=== PATIENT | female | born 1995 | race Caucasian/White ===

== ENCOUNTER 2018-02-15 21:58 | Emergency (ER) | payer SELFPAY ==
[2018-02-15 21:59] VITALS: BP 151/78; PULSE 77; RESP 14; TEMP 36.4; O2SAT 99; BMI 37.1
--- NOTE | 2018-02-15 22:22 | ED.VISSUMM ---
- ER Visit Summary Date of Service: 02/15/18 Chief Complaint: Dental pain History of Present Illness: The patient is a 22 F presents to the emergency department with pain in the right upper jaw. The patient had a filling about 6 months ago and since then she has had persistent pain. She is actually scheduled to have a root canal done tomorrow. States the past 3 nights, the pain is worsened. She has been taking ibuprofen and Tylenol with little relief. She denies any trouble speaking or swallowing. She denies any trauma. She denies any fevers or chills. Physical Examination: Exam is relatively unremarkable. She does have some mild tenderness to palpation over tooth #3. There is no focal abscess. No Aaron angina. Some of the space is soft. No trismus or stridor. Test Results: [] Emergency Department Course and Treatment: The patient does have some mild tenderness. She may have periapical abscess. She is scheduled for root canal tomorrow. She is given 1 dose of analgesics here and will be started on antibiotics. The patient will be given 24 hours of analgesic coverage until she can of root canal done. There is no evidence of Aaron angina. She is discharged home. Treatment Plan: [] Disposition: Discharge Impression: 1. Dental pain tooth 3 This note was generated with [employer] dictation software. It may contain incorrect words, spelling, and punctuation that were not noted in review of the chart prior to signing ED Disposition - Plan for ED Patient: Chief Complaint: Dental Instructions: ED Tooth Pain Prescriptions: Oxycodone HCl/Acetaminophen [Percocet 5/325] 1 tab PO Q6H PRN PRN 2 Days #5 tab PRN Reason: Pain Amoxicillin 500 mg PO TID #30 tab Referrals: Cora Alaniz DO [Primary Care Provider] -
[2018-02-15] MEDS: AMOXICILLIN 500 MG CAPSULE PO (23:14)
[2018-02-15] MEDS: oxyCODONE 5 MG Tablet PO (23:14)
[2018-02-15 23:16] VITALS: RESP 16
== END 2018-02-15 23:16 | disposition home or self-care (01) ==
LOC: ED 22:50
PROVIDERS: Emergency Provider Emergency Medicine
DX: K08.89 Other specified disorders of teeth and supporting structures (principal)
CPT/HCPCS: 99283

== ENCOUNTER 2018-03-05 09:23 | Emergency (ER) | payer SELFPAY ==
[2018-03-05 09:23] VITALS: BP 137/78; PULSE 88; RESP 15; TEMP 35.9; O2SAT 98; BMI 37.8
[2018-03-05] MEDS: Ondansetron ODT 4 MG Tablet PO (09:50)
[2018-03-05 10:03] LABS: Color, Urine Yellow (Yellow); Glucose, Dipstick Normal (Normal); Ketone-Dipstick Negative (Negative); Leukocyte Esterase-Dipstick 500 /ul (Negative); Nitrite-Dipstick Negative (Negative); Occult Blood-Urine 25 /ul (Negative); Protein-Dipstick 15 mg/dl (Negative); Urine Bilirubin Dipstick Negative (Negative); Urine Clarity Cloudy (Clear); Urine Urobilinogen Normal (Normal)
[2018-03-05 10:05] LABS: White Blood Cells 25-50 SEEN /hpf (0-5)
[2018-03-05 10:06] LABS: Bacteria 1+ /hpf (None Seen); Red Blood Cells-Urine 0-5 SEEN /hpf (0-5); Squamous Epithelial Cells - UA 5-10 SEEN /hpf (5-10)
[2018-03-05 10:07] LABS: Mucous, Urine RARE /hpf (<or=2+)
[2018-03-05 10:19] LABS: Pregnancy, Serum, hCG Quali. NEGATIVE Negative (0-9 Nonpreg)
--- NOTE | 2018-03-05 10:59 | ED.VISSUMM ---
- ER Visit Summary Date of Service: 03/05/18 Chief Complaint: Vague generalized centrally located abdominal pain and nausea and vomiting History of Present Illness: The patient is a 23 F who states last menses was approximately 3 weeks ago presents with generalized centrally located abdominal discomfort with nausea vomiting for 1-2 months. Upon further questioning the last time she vomited was February 11. She does report nausea for the past several days. She denies black, maroon or bloody stool. She states her emesis was bile . 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 He denies fever, chills night sweats. She denies any HEENT symptoms. She denies discomfort in her chest, palpitations, shortness of breath, dyspnea on exertion, or cough. She is status post cholecystectomy. She states since her gallbladder was removed she has had chronic diarrhea. She denies any blood or mucus in her stool. She does report mild frequency with no dysuria or urgency. She denies any vaginal bleeding or discharge. I was informed by her nurse that she has leg swelling and is concerned this is related to her heart disease. She has history of valvular heart disease. Of note BMI is 37.9. Physical Examination: Vital signs are marked for an elevated blood pressure 137/78. She is not hypoxic. Head is atraumatic normocephalic. Pupils are equal round reactive. Extraocular muscles are intact. TMs are pearly white with landmarks noted. Nares patent with no drainage. Posterior pharynx without erythema or exudate. Uvula is midline. There is no dysphonia or dysphasia. Trachea is midline. There is no stridor with auscultation of the neck. Heart is regular without murmur, gallop or rub. S1 and S2 are normal. Lungs are clear to auscultation with good movement of air bilaterally. Abdomen is remarkable for mild tenderness without guarding or rebound tenderness. Bowel sounds are present normal. There is no CVA tenderness noted. Equivocal suprapubic discomfort to deep palpation. Neuro exam is nonfocal. Test Results: Serum test was negative. Urinalysis is consistent with a UTI with leukoesterase and blood on macro and 25-50 RBCs with 05 RBCs 5 epithelial cells and 1+ bacteria. Emergency Department Course and Treatment: Because she complains of vague abdominal pain with nausea a serum test was obtained. Because of her urinary symptoms a UA urinalysis was obtained. Treatment Plan: Macrobid 100 mg twice daily ?5 days. Cultures not indicated since this is not a complex UTI. Disposition: Discharged home to follow-up with PCP. Apparently she does not have a PCP. Therefore, she was referred to Dr. López. Impression: 1. Generalized abdominal pain of unknown etiology 2. Acute cystitis 3. Elevated blood pressure in nonhypertensive patient This note was generated with [employer] dictation software. It may contain incorrect words, spelling, and punctuation that were not noted in review of the chart prior to signing ED Disposition - Plan for ED Patient: Disposition: Home or Assisted Living Chief Complaint: Nausea/Vomiting Instructions: ED Abdominal Pain Unkn Cause, ED Hypertension Poss, ED UTI Cystitis Female Prescriptions: Nitrofurantoin Monohyd/M-Cryst [Macrobid 100 mg Capsule] 100 mg PO BID #10 cap Referrals: Care Physician,No Primary [Primary Care Provider] - Panda Stock MD [STAFF PHYSICIAN] - 1 Week
[2018-03-05] MEDS: Nitrofurantoin Macrocrystals 100 MG Capsule PO (11:28)
[2018-03-05 11:29] VITALS: BP 125/70; BP 125/78; PULSE 80; RESP 14; O2SAT 99
== END 2018-03-05 11:30 | disposition home or self-care (01) ==
PROVIDERS: Emergency Provider Emergency Medicine
DX: R10.84 Generalized abdominal pain (principal); N30.00 Acute cystitis without hematuria; R03.0 Elevated blood-pressure reading, without diagnosis of hypertension; K52.9 Noninfective gastroenteritis and colitis, unspecified; M79.89 Other specified soft tissue disorders; Z90.49 Acquired absence of other specified parts of digestive tract
CPT/HCPCS: 81001; 84703; 99283; A4216

== ENCOUNTER → 2018-04-23 15:37 | Outpatient (CLI) | payer SELFPAY ==
[2018-04-30 11:02] LABS: HPV Reflexed? NOT INDICATED
== END ==
PROVIDERS: Visit Provider Obstetrics & Gynecology
DX: Z12.4 Encounter for screening for malignant neoplasm of cervix (principal)
CPT/HCPCS: 88175; G0145

== ENCOUNTER → 2018-05-18 15:18 | Outpatient (CLI) | payer SELFPAY ==
[2018-05-18 19:22] LABS: Chlamydia Trachomatis by PCR Negative (Negative); Neisserai gonorrhoeae by PCR Negative (Negative); Probe Check PASS; Sample Adequacy Control PASS; Specimen Processing Control PASS
== END ==
PROVIDERS: Visit Provider Obstetrics & Gynecology
DX: R30.0 Dysuria (principal); Z11.3 Encounter for screening for infections with a predominantly sexual mode of transmission
CPT/HCPCS: 87086; 87088; 87491; 87591

== ENCOUNTER → 2018-05-21 15:08 | Outpatient (CLI) | payer SELFPAY ==
--- NOTE | 2018-05-21 15:20 | US_ITS ---
STUDY: ULTRASOUND BREAST - RIGHT REASON FOR EXAM: Female, 23 years old. Lump TECHNIQUE: Axial and longitudinal images of the RIGHT breast were performed with a high resolution ultrasound transducer. COMPARISON: None. FINDINGS: RIGHT Breast: There is a subcutaneous hypoechoic 0.4 x 0.3 x 0.2 cm nodule at 1:00, adjacent to the nipple. This is likely a skin lesion or small lymph node. There is no suspicious shadowing solid lesion, architectural distortion or shadowing calcifications. US/Breast Limited Unilateral IMPRESSION: Likely subcutaneous skin nodule, no suspicious sonographic findings. ASSESSMENT CATEGORY: BIRADS Category 2: Benign. A letter regarding these results will be sent to the patient by the facility within 30 days. Electronically Signed: Rudy Raygoza MD at 21:32 EDT , Service support ,
== END ==
PROVIDERS: Visit Provider Obstetrics & Gynecology
DX: N63.10 Unspecified lump in the right breast, unspecified quadrant (principal)
CPT/HCPCS: 76642

== ENCOUNTER 2018-07-21 14:16 | Emergency (ER) | payer SELFPAY ==
[2018-07-21 14:18] VITALS: BP 158/73; PULSE 78; RESP 24; TEMP 37; O2SAT 100; BMI 32.8
--- NOTE | 2018-07-21 14:24 | NURSING ---
NO OLD EKGS
--- NOTE | 2018-07-21 14:45 | RAD_ITS ---
STUDY: X-RAY CHEST REASON FOR EXAM: Female, 23 years old. Chest pain. Left arm tingling. TECHNIQUE: PA and lateral views of the chest. COMPARISON: None. FINDINGS: EKG electrodes are seen. The lungs are clear and expanded. There is no demonstrated pleural abnormality. Normal size heart. Normal mediastinum and oswald. Normal visualized pulmonary arteries. Normal visualized aortic arch and descending thoracic aorta. Normal visualized thoracic spine. Normal visualized ribs, clavicles, and shoulders. There is no demonstrated abnormality of the visualized soft tissue structures of the upper abdomen. RAD/Chest PA and Lateral IMPRESSION: Normal x-ray examination of the chest. Electronically Signed: Alexandre Lozano MD at 15:40 EDT Tel [phone], Service support ,
--- NOTE | 2018-07-21 14:45 | EKG12_ITS ---
Test Reason : CP Blood Pressure : / mmHG Vent. Rate : 082 BPM Atrial Rate : 082 BPM P-R Int : 132 ms QRS Dur : 076 ms QT Int : 376 ms P-R-T Axes : 004 065 035 degrees QTc Int : 439 ms Normal sinus rhythm with sinus arrhythmia Normal ECG Confirmed by DONAVAN PERSAUD, JESSIE ([id number]), editor magazine JENNY ALCOCER ([id number]) on 07/23/2018 1:54:17 PM Referred By: BOUBACAR/DAVE Confirmed By:JESISE GO MD
[2018-07-21 14:52] LABS: Absolute Lymphocyte Count 2.01 X10^3/ul (0.83-4.51); Absolute Neutrophil Count 5.6 X10^3/uL (2.0-7.7); Basophil# 0.01 X10^3/uL; Basophil% 0.1 % (0-1); Eosinophil# 0.06 X10^3/uL; Eosinophils% 0.7 % (0-5); Hemoglobin 12.9 g/dl (12.0-15.0); Lymphocyte # 2.01 X10^3/ul (4.0); Lymphocyte % 24.5 % (19-41); Mean Corp Hgb Conc 33.1 g/gl (32-36); Mean Corpuscular Hgb 28.5 pg (27.0-32.0); Mean Corpuscular Volume 86.3 fL (81-99); Mean Platelet Vol. 11.1 fl (6.2-12.0); Monocyte# 0.55 X10^3/uL; Monocyte% 6.7 % (0-10); Neutrophil # 5.57 X10^3/uL (2.7-7.7); Neutrophil % 67.9 % (47-70); POSITIVE COUNT NO; POSITIVE DIFFERENTIAL NO; POSITIVE MORPHOLOGY NO; Platelet Count 297 K/mm3 (150-450); RBC Distribution Width CV 13.6 % (11.6-14.6); RBC Distribution Width SD 42.7 fl (35.1-43.9); Red Blood Count 4.52 M/mm3 (4.2-5.4); White Blood Count 8.2 K/mm3 (4.4-11.0)
[2018-07-21 15:00] LABS: D-Dimer Quantitative (DVT/PE) 0.61 FEU/ug/m (0.27-0.49)
--- NOTE | 2018-07-21 15:01 | ED.RN ---
DR. HAMLIN NOTIFIED FACE TO FACE FOR CRITICAL LAB RESULT OF D-DIMER ON PT OF 0.61. NO ORDERS GIVEN AT THIS TIME.
[2018-07-21] MEDS: Aspirin 81 MG TAB.CHEW 324 MG PO (15:03)
--- NOTE | 2018-07-21 15:05 | CT_ITS ---
STUDY: CTA CHEST REASON FOR EXAM: Female, 23 years old. Chest pain and shortness of breath. Elevated d-dimer. RADIATION DOSAGE (If Supplied By Facility): CTDIvol = ( 16.19 ) mGy, DLP = ( 639.86 ) mGycm TECHNIQUE: The examination was performed with the intravenous administration of 100ML ml of Isovue 300 contrast material. Post-processing of the angiographic images was performed, with multiplanar reformation and 3D reconstruction. Individualized dose optimization techniques were used for this CT. COMPARISON: None. FINDINGS: Normal enhancement of the main pulmonary artery and right and left pulmonary arteries. Normal enhancement of the bilateral peripheral pulmonary arteries. There is no demonstrated pulmonary embolism. Normal thoracic aorta and visualized great vessels. There is no demonstrated aortic dissection. Normal heart and pericardium. Normal mediastinum. Normal hilar regions. Normal visualized trachea and bronchi. The lungs are well expanded. Normal pulmonary parenchyma. Normal pleura. Normal chest wall structures. Normal osseous structures. The patient is status post cholecystectomy. Small hiatal hernia. CT/CTA Chest W/WO Contrast IMPRESSION: Normal CTA chest examination, without a demonstrated pulmonary embolism or arterial dissection. Electronically Signed: Alexandre Lozano MD at 15:43 EDT Tel [phone], Service support ,
[2018-07-21 15:09] LABS: Anion Gap 6 (5-15); BUN 10 mg/dL (7-18); Chloride 102 mmol/L (98-107); Creatinine, Serum 0.84 mg/dL (0.55-1.02); EST Glomerular Filtration Rate 90 mL/min (>60); Est Glom Filt Rate - Afr Amer 109 mL/min (>60); Glucose 99 mg/dL (74-106); Potassium 3.7 mmol/L (3.5-5.1); Sodium Level 137 mmol/L (136-145)
[2018-07-21 15:16] VITALS: BP 115/67; PULSE 67; RESP 16; O2SAT 97
[2018-07-21 16:00] VITALS: BP 105/55; PULSE 94; RESP 20; O2SAT 96
--- NOTE | 2018-07-21 16:13 | ED.VISSUMM ---
- ER Visit Summary Date of Service: 07/21/18 Chief Complaint: Chest pain and left arm pain History of Present Illness: The patient is a 23 F presenting for evaluation secondary to chest pain left arm pain. Patient reports that over the course of multiple months she has been having intermittent issues where she will get pain on her left side. She states that associated with pain in her left arm and her left leg. These do not seem to have any sort of exacerbating relieving factors and will come or go completely on their own. Patient apparently developed chest pain however associated with this about an hour and a half ago. Patient states that associated with feelings of nausea shortness of breath and paresthesia in her left arm. Patient reports that she frequently has been getting issues with getting hiccups about twice a day. She denies any fevers but does endorse that she is having some chills. She does endorse some nausea associated with this as well. Patient has a history of anxiety and pulmonary valve stenosis. She is not on any other medications other than control. She denies any hemoptysis or history of DVT or PE although they do have a familial history of PE. Physical Examination: Vital signs are within normal limits, patient is afebrile. General: Patient is well-nourished well-developed and in no acute distress. Head: Normocephalic, atraumatic Eyes: Pupils equal round and reactive bilaterally, extra occular motion intact bialterally ENT: Moist mucous membranes Neck: Supple, no lymphadenopathy, no JVD, no meningismus CVS: Heart regular rate and rhythm, 3 out of 6 systolic murmur, rubs or gallops, radial pulses 2+ bilaterally Resp: Respirations nondistressed, lung sounds clear bilaterally Abdomen: Soft, nontender, nondistended, no palpable masses, normal bowel sounds Back: Nontender Extremities: Nontender, atraumatic, active full range of motion, no peripheral edema Skin: warm, no rashes, no petechia Neuro: Alert and oriented x 4, CN 2-12 intact, no lateralizing neurological defecits Psyc: Normal affect Test Results: EKG demonstrates a sinus rhythm of [address] segments normal T waves normal intervals and no evidence of WPW or Brugada morphology. CBC chemistry and troponin are negative. D-dimer was found to be positive. CTA angiogram of the chest was found to be negative. Emergency Department Course and Treatment: Patient presented for evaluation secondary to chest pain. She did endorse somewhat of a pleuritic nature to this and is also on control, so she cannot be ruled out without performing a d-dimer. This was found to be positive. CT angiogram was negative. Patient's heart score is low risk. I had a extensive discussion with the patient about her waxing and waning left arm and left leg pain that is been going on for months and I do not believe that this is neurologic, infectious, vascular, or anything that would require inpatient workup or admission. I encouraged her that she needs to follow-up on an outpatient basis with primary care physician to continue workup of this. All questions were answered and the patient was discharged. Disposition: Discharge Impression: 1. Noncardiac chest pain This note was generated with [employer] dictation software. It may contain incorrect words, spelling, and punctuation that were not noted in review of the chart prior to signing ED Disposition - Plan for ED Patient: Chief Complaint: Chest Pain Diagnosis: Chest pain Instructions: ED Chest Pain NonCardiac Referrals: Aditya Melchor III, MD [STAFF PHYSICIAN] -
--- NOTE | 2018-07-21 16:18 | ED.DCSUM_ITS ---
- ER Visit Summary Date of Service: 07/21/18 Chief Complaint: Chest pain and left arm pain History of Present Illness: The patient is a 23 F presenting for evaluation secondary to chest pain left arm pain. Patient reports that over the course of multiple months she has been having intermittent issues where she will get pain on her left side. She states that associated with pain in her left arm and her left leg. These do not seem to have any sort of exacerbating relieving factors and will come or go completely on their own. Patient apparently developed chest pain however associated with this about an hour and a half ago. Patient states that associated with feelings of nausea shortness of breath and paresthesia in her left arm. Patient reports that she frequently has been getting issues with getting hiccups about twice a day. She denies any fevers but does endorse that she is having some chills. She does endorse some nausea associated with this as well. Patient has a history of anxiety and pulmonary valve stenosis. She is not on any other medications other than control. She denies any hemoptysis or history of DVT or PE although they do have a familial history of PE. Physical Examination: Vital signs are within normal limits, patient is afebrile. General: Patient is well-nourished well-developed and in no acute distress. Head: Normocephalic, atraumatic Eyes: Pupils equal round and reactive bilaterally, extra occular motion intact bialterally ENT: Moist mucous membranes Neck: Supple, no lymphadenopathy, no JVD, no meningismus CVS: Heart regular rate and rhythm, 3 out of 6 systolic murmur, rubs or gallops, radial pulses 2+ bilaterally Resp: Respirations nondistressed, lung sounds clear bilaterally Abdomen: Soft, nontender, nondistended, no palpable masses, normal bowel sounds Back: Nontender Extremities: Nontender, atraumatic, active full range of motion, no peripheral edema Skin: warm, no rashes, no petechia Neuro: Alert and oriented x 4, CN 2-12 intact, no lateralizing neurological defecits Psyc: Normal affect Test Results: EKG demonstrates a sinus rhythm of [address] segments normal T waves normal intervals and no evidence of WPW or Brugada morphology. CBC chemistry and troponin are negative. D-dimer was found to be positive. CTA angiogram of the chest was found to be negative. Emergency Department Course and Treatment: Patient presented for evaluation secondary to chest pain. She did endorse somewhat of a pleuritic nature to this and is also on control, so she cannot be ruled out without performing a d- dimer. This was found to be positive. CT angiogram was negative. Patient's heart score is low risk. I had a extensive discussion with the patient about her waxing and waning left arm and left leg pain that is been going on for thu and I do not believe that this is neurologic, infectious, vascular, or anything that would require inpatient workup or admission. I encouraged her that she needs to follow-up on an outpatient basis with primary care physician to continue workup of this. All questions were answered and the patient was discharged. Disposition: Discharge Impression: 1. Noncardiac chest pain This note was generated with [employer] dictation software. It may contain incorrect words, spelling, and punctuation that were not noted in review of the chart prior to signing ED Disposition - Plan for ED Patient: Chief Complaint: Chest Pain Diagnosis: Chest pain Instructions: ED Chest Pain NonCardiac Referrals: Aditya Melchor III, MD [STAFF PHYSICIAN] -
[2018-07-21 16:19] VITALS: BP 105/55; PULSE 84; RESP 20; O2SAT 97
== END 2018-07-21 16:32 | disposition home or self-care (01) ==
LOC: ED 15:10
PROVIDERS: Emergency Provider Emergency Medicine
DX: R07.89 Other chest pain (principal); M79.602 Pain in left arm; M79.605 Pain in left leg; R06.00 Dyspnea, unspecified; R11.0 Nausea; I37.8 Other nonrheumatic pulmonary valve disorders; F41.9 Anxiety disorder, unspecified; Z79.3 Long term (current) use of hormonal contraceptives
CPT/HCPCS: 71046; 71275; 80048; 84484; 85025; 85379; 93005; 99285; Q9967; A4216

== ENCOUNTER 2018-08-12 23:42 | Emergency (ER) | payer SELFPAY ==
[2018-08-12 23:43] VITALS: BP 129/80; PULSE 82; RESP 14; TEMP 36.1; O2SAT 96; BMI 34.7
--- NOTE | 2018-08-12 23:53 | EKG12_ITS ---
Test Reason : CP Blood Pressure : / mmHG Vent. Rate : 072 BPM Atrial Rate : 072 BPM P-R Int : 142 ms QRS Dur : 076 ms QT Int : 368 ms P-R-T Axes : 018 052 026 degrees QTc Int : 402 ms Normal sinus rhythm with sinus arrhythmia Normal ECG Confirmed by DONAVAN PERSAUD, JESSIE ([id number]), senior editor ISMAEL HUDSON ([id number]) on 08/16/2018 12:47:41 PM Referred By: LISA Confirmed By:JESSIE GO MD
--- NOTE | 2018-08-13 00:16 | ED.VISSUMM ---
- ER Visit Summary Date of Service: 08/13/18 Chief Complaint: Left leg pain, chest pain History of Present Illness: The patient is a 23 F who has had the above symptoms for a couple of weeks. She has had left leg pain intermittently. She states the pain is sharp in the middle part of her chest. She was seen here 2 weeks ago and had a full workup including a slightly positive d-dimer at 0.61. CTA of the chest was negative. She states that she told the physician that about her leg pain but they did not do an ultrasound at that time. She has no history of DVTs in the past. She denies any injuries to the left leg. The pain is worse with walking. He has no DVT risk factors. Physical Examination: Vital signs reviewed. HEENT exam unremarkable. Heart is regular rate and rhythm without murmurs. Lungs are clear to auscultation. Abdomen is soft and nontender. Extremities reveal no edema. The left leg is tender in the left calf. There is no swelling of the entire leg. No palpable cords. No erythema. She is full range of motion with pain in the calf. She has 2+ DP pulse of the left foot. Skin exam normal. Neurologic exam normal. Test Results: EKG was sinus rhythm with rate of 72. No ST changes. Emergency Department Course and Treatment: The patient's EKG was unremarkable. Patient declined Lovenox. She only requested aspirin. I will write her a prescription to have an outpatient ultrasound done tomorrow. I reviewed her workup from a couple of weeks ago and it is fairly normal except for the slightly elevated d-dimer. I do not feel labs are necessary at this time. Treatment Plan: [] Disposition: Discharge Impression: Left leg pain, chest pain This note was generated with [employer] dictation software. It may contain incorrect words, spelling, and punctuation that were not noted in review of the chart prior to signing ED Disposition - Plan for ED Patient: Chief Complaint: Lower Extremity Injury Referrals: Care Physician,No Primary [Primary Care Provider] -
--- NOTE | 2018-08-13 00:18 | ED.DEP ---
ED Disposition - Plan for ED Patient: Disposition: Home or Assisted Living Chief Complaint: Lower Extremity Injury Instructions: ED Chest Pain NonCardiac Referrals: Rosenda Ewing MD [STAFF PHYSICIAN] -
[2018-08-13] MEDS: Aspirin 325 MG Tablet PO (00:24)
[2018-08-13 00:30] VITALS: BP 141/68; PULSE 69; RESP 18; O2SAT 100
== END 2018-08-13 00:30 | disposition home or self-care (01) ==
PROVIDERS: Emergency Provider Emergency Medicine
DX: M79.605 Pain in left leg (principal); R74.8 Abnormal levels of other serum enzymes; R07.9 Chest pain, unspecified
CPT/HCPCS: 93005; 99283

== ENCOUNTER → 2018-08-13 15:13 | Outpatient (CLI) | payer SELFPAY ==
--- NOTE | 2018-08-13 15:15 | VDLE_ITS ---
Reason For Study: LEG PAIN RIGHT LEFT CFV is compressible, spontaneous, phasic, GSV is normal. competent and demonstrates normal CFV is compressible, spontaneous, phasic, augmentation. competent, and demonstrates normal Procedure augmentation. Exam performed in department. FV is compressible, spontaneous, phasic, competent and demonstrates normal augmentation. POP V is compressible, spontaneous, phasic, competent and demonstrates normal augmentation. T/P Trunk is compressible. PTV is compressible. LT PerV is compressible. Interpretation Summary Deep veins of the left lower extremity are patent and compressible segmentally. There is no evidence of left lower extremity deep vein thrombosis. Valvular competence appears intact within the proximal deep venous system on the left . The left greater saphenous vein appears patent and compressible segmentally. Ordering Physician: Noman Whalen Referring Physician: Francisco Stock MD Performed By: Leighann López RVT
== END ==
LOC: CVS 15:14
PROVIDERS: Family Provider Family Medicine; PCP Family Medicine; Referring Provider Emergency Medicine; Visit Provider Emergency Medicine
DX: M79.605 Pain in left leg (principal)
CPT/HCPCS: 93971

== ENCOUNTER → 2018-08-16 14:31 | Outpatient (CLI) | payer SELFPAY ==
[2018-08-16 16:11] LABS: hCG Titer Quant., Serum < 1 mIU/mL (<9 non-preg)
== END ==
PROVIDERS: Visit Provider Obstetrics & Gynecology
DX: N92.6 Irregular menstruation, unspecified (principal)
CPT/HCPCS: 36415; 84702

== ENCOUNTER → 2018-08-19 11:22 | Outpatient (CLI) | payer SELFPAY ==
[2018-08-19 12:12] LABS: Hematocrit 39.6 % (37-47); Hemoglobin 13.1 g/dl (12.0-15.0); Mean Corp Hgb Conc 33.1 g/gl (32-36); Mean Corpuscular Hgb 28.6 pg (27.0-32.0); Mean Corpuscular Volume 86.5 fL (81-99); Mean Platelet Vol. 10.7 fl (6.2-12.0); Platelet Count 261 K/mm3 (150-450); RBC Distribution Width CV 13.6 % (11.6-14.6); RBC Distribution Width SD 43.2 fl (35.1-43.9); Red Blood Count 4.58 M/mm3 (4.2-5.4); Scan Indicated on CBC? Y/N NO; White Blood Count 5.6 K/mm3 (4.4-11.0)
[2018-08-19 12:29] LABS: D-Dimer Quantitative (DVT/PE) 0.41 FEU/ug/m (0.27-0.49)
== END ==
PROVIDERS: Visit Provider Obstetrics & Gynecology
DX: N92.5 Other specified irregular menstruation (principal); R74.8 Abnormal levels of other serum enzymes
CPT/HCPCS: 36415; 85027; 85379

== ENCOUNTER → 2018-10-05 11:20 | Outpatient (CLI) | payer OTHER, SELFPAY ==
[2018-10-05 08:17] VITALS: BMI 34.9
[2018-10-05 12:29] LABS: Hematocrit 40.6 % (37-47); Hemoglobin 13.5 g/dl (12.0-15.0); Mean Corp Hgb Conc 33.3 g/gl (32-36); Mean Corpuscular Volume 87.1 fL (81-99); Mean Platelet Vol. 11.5 fl (6.2-12.0); Platelet Count 294 K/mm3 (150-450); RBC Distribution Width CV 13.6 % (11.6-14.6); RBC Distribution Width SD 42.8 fl (35.1-43.9); Red Blood Count 4.66 M/mm3 (4.2-5.4); White Blood Count 5.6 K/mm3 (4.4-11.0)
[2018-10-05 12:36] LABS: Scan Indicated on CBC? Y/N NO
[2018-10-05 13:06] LABS: Anion Gap 9 (5-15); BUN 10 mg/dL (7-18); Calcium,Total 9.1 mg/dL (8.5-10.1); Chloride 107 mmol/L (98-107); Cholesterol 170 mg/dL (200); Creatinine, Serum 0.67 mg/dL (0.55-1.02); EST Glomerular Filtration Rate 117 mL/min (>60); Est Glom Filt Rate - Afr Amer 142 mL/min (>60); Glucose 85 mg/dL (74-106); High Density Lipoprotein 51 mg/dL; Potassium 3.5 mmol/L (3.5-5.1); Sodium Level 143 mmol/L (136-145); Thyroid Stim Hormone (TSH) 1.14 uIU/mL (0.358-3.74); Triglycerides 52 mg/dL; Very Low Density Lipoprotein 10 mg/dL (5-40)
[2018-10-05 13:07] LABS: Vitamin D,25 Hydroxy 24.2 ng/mL (29.95-100.01)
--- OUTSIDE RECORDS SUMMARY | 2018-11-21 12:22 | XMS RPT_ITS ---
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 that she needs to follow-up on an outpatient basis with primary care physician to continue workup of this. All questions were answered and the patient was discharged. Disposition: Discharge Impression: 1. Noncardiac chest pain This note was generated with [employer] dictation software. It may contain incorrect words, spelling, and punctuation that were not noted in review of the chart prior to signing ED Disposition - Plan for ED Patient: Chief Complaint: Chest Pain Diagnosis: Chest pain Instructions: ED Chest Pain NonCardiac Referrals: Aditya Melchor III, MD [STAFF PHYSICIAN] - What to do if you have Problems For any increased pain, shortness of breath, bleeding, nausea or vomiting, chest pain, or any unexpected problems, contact your Primary Care Provider. Call [employer] [facility] ([phone]) or report to the closest Emergency Room. Call 911 if necessary. 07/21/18 1731 <Electronically signed by Praneeth Cameron MD> Date Praneeth Cameron MD Cosigner Signature (If Indicated): Date CC: No Primary Care Physician CTA CHEST W/WO Observed: 07/21/2018 Status: F Source: [place] CONTR[place] 3:06 PM [facility] RE[facility] Imaging Services [address] [place] [address] CTA Chest W/WO Contrast MR#: [id number] Acct: [id number] Name: KATIE CHENG Rep #: [id number] : 1995 F 23 From: Alexandre Lozano MD PCP: Care Physician, No Primary Status: REG ER Study: CTA Chest W/WO Contrast Date of Exam: 07/21/18 Exam# [id number] Ordering Dr: Praneeth Cameron MD STUDY: CTA CHEST REASON FOR EXAM: Female, 23 years old. Chest pain and shortness of breath. Elevated d-dimer. RADIATION DOSAGE (If Supplied By Facility): CTDIvol = ( 16.19 ) mGy, DLP = ( 639.86 ) mGycm TECHNIQUE: The examination was performed with the intravenous administration of 100ML ml of Isovue 300 contrast material. Post-processing of the angiographic images was performed, with multiplanar reformation and 3D reconstruction. Individualized dose optimization techniques were used for this CT. COMPARISON: None. FINDINGS: Normal enhancement of the main pulmonary artery and right and left pulmonary arteries. Normal enhancement of the bilateral peripheral pulmonary arteries. There is no demonstrated pulmonary embolism. Normal thoracic aorta and visualized great vessels. There is no demonstrated aortic dissection. Normal heart and pericardium. Normal mediastinum. Normal hilar regions. Normal visualized trachea and bronchi. The lungs are well expanded. Normal pulmonary parenchyma. Normal pleura. Normal chest wall structures. Normal osseous structures. The patient is status post cholecystectomy. Small hiatal hernia. CT/CTA Chest W/WO Contrast IMPRESSION: Normal CTA chest examination, without a demonstrated pulmonary embolism or arterial dissection. Electronically Signed: Alexandre Lozano MD at 15:43 EDT Tel [phone], Service support , CC: No Primary Care Physician; Praneeth Cameron Equipment Application Specialist: Signed CHEST PA AND LATERAL Observed: 07/21/2018 Status: F Source: [place] 2:46 PM [facility] Imaging Services [address] [place] [address] Chest PA and Lateral MR#: [id number] Acct: [id number] Name: KATIE CHENG Rep #: [id number] : 1995 F 23 From: Alexandre Lozano MD PCP: Care Physician, No Primary Status: REG ER Study: Chest PA and Lateral Date of Exam: 07/21/18 Exam# [id number] Ordering Dr: Praneeth Cameron MD STUDY: X-RAY CHEST REASON FOR EXAM: Female, 23 years old. Chest pain. Left arm tingling. TECHNIQUE: PA and lateral views of the chest. COMPARISON: None. FINDINGS: EKG electrodes are seen. The lungs are clear and expanded. There is no demonstrated pleural abnormality. Normal size heart. Normal mediastinum and oswald. Normal visualized pulmonary arteries. Normal visualized aortic arch and descending thoracic aorta. Normal visualized thoracic spine. Normal visualized ribs, clavicles, and shoulders. There is no demonstrated abnormality of the visualized soft tissue structures of the upper abdomen. RAD/Chest PA and Lateral IMPRESSION: Normal x-ray examination of the chest. Electronically Signed: Alexandre Lozano MD at 15:40 EDT Tel [phone], Service support , CC: No Primary Care Physician; Praneeth Cameron Equipment Application Specialist: Signed CBC W/DIFF, AUTOMATED Collected: 07/21/2018 Status: F Source: [place] 2:30 PM [facility] TYPE CODE TESTS RESULT OUT OF RANGE REFERENCE UNITS LAB L100.1000 4.4-11.0 K/mm3 Normal WBC 8.2 LAB L100.1200 4.2-5.4 M/mm3 Normal RBC 4.52 LAB L100.1300 12.0-15.0 g/dl Normal HGB 12.9 LAB L100.1400 37-47 % Normal HCT 39.0 LAB L100.1500 81-99 fL Normal MCV 86.3 LAB L100.1600 27.0-32.0 pg Normal MCH 28.5 LAB L100.1700 32-36 g/gl Normal MCHC 33.1 LAB L100.1810 11.6-14.6 % Normal RDW CV 13.6 LAB L100.1820 35.1-43.9 fl Normal RDW SD 42.7 LAB L100.1900 150-450 K/mm3 Normal PLT 297 LAB L100.2000 6.2-12.0 fl Normal MPV 11.1 LAB L100.2100 47-70 % Normal NEUT% 67.9 LAB L100.2200 19-41 % Normal LY% 24.5 LAB L100.2300 0-10 % Normal MONO% 6.7 LAB L100.2400 0-5 % Normal EO% 0.7 LAB L100.2500 0-1 % Normal BASO% 0.1 LAB L100.2550 0.0-0.9 % Normal IM GRAN % 0.100 Result Comment: IG% - Immature Granulocytes (promyelocytes, myelocytes and metamyelocytes) > 1% indicates that a LEFT SHIFT is Present. LAB L100.2620 2.0-7.7 X10 3/uL Normal Absolute Neut 5.6 LAB L100.2720 0.83-4.51 X10 3/ul Normal Absolute Lymph 2.01 Performed By: #### L100.0100 #### [facility] [address] [facility] [place], [address] D-DIMER QUANTITATIVE Collected: 07/21/2018 Status: F Source: [place] (DVT/PE) 2:30 PM [facility] TYPE CODE TESTS RESULT OUT OF RANGE REFERENCE UNITS LAB L300.8000 0.27-0.49 FEU/ug/m High alert D-DIMER 0.61 QUANT Result Comment: D-Dimer ELEVATED (>0.49): Additional studies and clinical assessments are indicated to conclude diagnosis of: Deep Vein Thrombosis (DVT) or Pulmonary Embolism (PE) CRITICAL VALUE VERIFIED. CALLED TO JAVI CARNEY 07/21/18 1500 Florentin Mcclellan. RESULTS READ BACK BY SAME. Performed By: #### L300.8000 #### [facility] [address] [facility]. [place], [place], [address] BASIC METABOLIC Collected: 07/21/2018 Status: F Source: [place] PROFILE (BMP) 2:30 PM [facility] TYPE CODE TESTS RESULT OUT OF RANGE REFERENCE UNITS LAB L501.0100 74-106 mg/dL Normal GLU 99 Result Comment: Please note revised GLUCOSE reference range effective 2017. LAB L501.1000 7-18 mg/dL Normal BUN 10 LAB L501.1100 0.55-1.02 mg/dL Normal CREAT,SERUM 0.84 Result Comment: The validity of the calculated GFR AND GFRAA in patients over 70 years has not been determined. Clinical correlation is essential. LAB L501.1110 >60 mL/min Normal EST GFR 90 Result Comment: Non- GFR Calc LAB L501.1115 >60 mL/min Normal EST GFR - AA 109 Result Comment: GFR Calc LAB L501.1255 ml/min Normal Estimated CRCL 86.90 LAB L501.1300 10-20 RATIO Normal BUN/CRE 12.0 LAB L501.2200 8.5-10 mg/dL Normal .1 CA 9.0 LAB L501.5300 136-14 mmol/L Normal 5 NA 137 LAB L501.5600 3.5-5. mmol/L Normal 1 K 3.7 LAB L501.5900 98-107 mmol/L Normal CL 102 LAB L501.6100 21.0-3 mmol/L Normal 2.0 CO2 29.0 LAB L501.6200 5-15 Normal GAP 6 Performed By: #### L500.2500, L501.4010 #### [facility] [address] [facility] [place], [address] TROPONIN-I Collected: 07/21/2018 Status: F Source: [place] 2:30 PM [facility] TYPE CODE TESTS RESULT OUT OF RANGE REFERENCE UNITS LAB L501.4010 <0.045 ng/mL Normal < 0.015 TROPONIN-I Result Comment: TROPONIN-I EXPECTED VALUES <0.045 Negative 0.045 - 0.590 Consistent with Cardiac Damage > OR = 0.600 Critical Value Not every elevated troponin is indicative of AR. These values should be used with clinical judgement in examining the patient's clinical picture for diagnosis. To establish a diagnosis of AR versus myocardial injury, there must be a demonstrated rise and/or fall in the troponin values, in addition to ischemic symptoms, EKG changes, new regional wall motion abnormality, and/or angiographical evidence. PLEASE NOTE: REFERENCE RANGES EDITED 18 Performed By: #### L500.2500, L501.4010 #### [facility] [address] [facility] [place], [address] BREAST LIMITED Observed: 05/21/2018 Status: F Source: [place] UNILATERAL 3:21 PM [facility] Imaging Services [address] [place] [address] Breast Limited Unilateral MR#: [id number] Acct: [id number] Name: KATIE CHENG Rep #: [id number] : 1995 F 23 From: Ervin Raygoza MD PCP: Care Physician, No Primary Status: REG CLI Study: Breast Limited Unilateral Date of Exam: 05/21/18 Exam# [id number] Ordering Dr: Daniela Graves MD STUDY: ULTRASOUND BREAST - RIGHT REASON FOR EXAM: Female, 23 years old. Lump TECHNIQUE: Axial and longitudinal images of the RIGHT breast were performed with a high resolution ultrasound transducer. COMPARISON: None. FINDINGS: RIGHT Breast: There is a subcutaneous hypoechoic 0.4 x 0.3 x 0.2 cm nodule at 1:00, adjacent to the nipple. This is likely a skin lesion or small lymph node. There is no suspicious shadowing solid lesion, architectural distortion or shadowing calcifications. US/Breast Limited Unilateral IMPRESSION: Likely subcutaneous skin nodule, no suspicious sonographic findings. ASSESSMENT CATEGORY: BIRADS Category 2: Benign. A letter regarding these results will be sent to the patient by the facility within 30 days. Electronically Signed: Rudy Raygoza MD at 21:32 EDT , Service support , CC: No Primary Care Physician; Daniela Boyer MD Equipment Application Specialist: Signed CT/NG [facility] BY PCR Collected: 05/18/2018 Status: F Source: [place] 1:30 PM [facility] TYPE CODE TESTS RESULT OUT OF RANGE REFERENCE UNITS LAB L8200.2100 Negative Normal Chlam Negative Trac PCR LAB L8200.2200 Negative Normal NG by Negative PCR Performed By: #### L8200.2000 #### [facility] [address] [place], [address] Observed: 05/18/2018 Status: F Source: [place] CULTURE, URINE 1:30 PM [facility] PLEASE RUN TESTING ON URINE PROVIDED Urine Culture Possible skin contamination. ORGANISM 1: Mixed Gram Positive Organisms [place] Count >100,000 MIX CULTURE Mixed contaminants. Submit a new specimen if indicated. Performed By: #### M100.0650 #### [facility] [address] [place], [address] PAP I-G W/RFX Collected: 04/23/2018 Status: F Source: [place] HRHPV-APTIMA 1:40 PM [facility] Order Comment: CYTOLOGY INFORMATION: - CLINICAL INFORMATION: - DATE LMP/MENOPAUSE: 03/22/18 LMP - COLLECTION VIAL: Thin Prep Vial - PNEUMATIC TESTER SOURCE: CERVICAL/ENDOCERVICAL - COLLECTION TECHNIQUE: BRUSH/SPATULA Specimen Comment: [id number] Specimen Comment: No. of containers..01 ThinPrep Vial TYPE CODE TESTS RESULT OUT OF RANGE REFERENCE UNITS LAB L7400.0800 . Normal DIAGN Comment Result Comment: NEGATIVE FOR INTRAEPITHELIAL LESION AND MALIGNANCY. LAB L7400.0900 . Normal ADEQ Comment Result Comment: Satisfactory for evaluation. Endocervical and/or squamous metaplastic cells (endocervical component) are present. LAB L7400.1400 . Normal PERFORM Comment Result Comment: Yocasta Baeza, [employer] Operator (ASCP) LAB L7400.2575 . Normal TEST METHOD Comment Result Comment: This liquid based ThinPrep(R) pap test was screened with the use of an image guided system. LAB L7400.2600 . Normal . COMM LAB L7400.2700 . Normal PAPSMR Comment Result Comment: The Pap smear is a screening test designed to aid in the detection of premalignant and malignant conditions of the uterine cervix. It is not a diagnostic procedure and should not be used as the sole means of detecting cervical cancer. Both false-positive and false-negative reports do occur. LAB L7400.2800 . Normal HPV RFLX Comment Result Comment: The HPV DNA reflex criteria were not met with this specimen result therefore, no HPV testing was performed. Performed at: [address] [id number] Manager Philosophy: Cortney Vargas MD, Phone: [phone] Performed By: #### L7400.0353 #### [facility] (refer to report for specific site) refer to report for address and phone number EMERGENCY DEPARTMENT Observed: 03/05/2018 Status: F Source: [place] SUMMARY 11:07 AM [facility] Medical Records Department [address] [place] [address] Emergency Department Summary 03/05/18 1059 MR#: [id number] Acct: [id number] Name: KATIE CHENG Rep #: [id number] : 1995 23 From: Nader Marmolejo MD PCP: Care Physician, No Primary Status: REG ER - ER Visit Summary Date of Service: 03/05/18 Chief Complaint: Vague generalized centrally located abdominal pain and nausea and vomiting History of Present Illness: The patient is a 23 F who states last menses was approximately 3 weeks ago presents with generalized centrally located abdominal discomfort with nausea vomiting for 1-2 months. Upon further questioning the last time she vomited was February 11. She does report nausea for the past several days. She denies black, maroon or bloody stool. She states her emesis was bile . 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 He denies fever, chills night sweats. She denies any HEENT symptoms. She denies discomfort in her chest, palpitations, shortness of breath, dyspnea on exertion, or cough. She is status post cholecystectomy. She states since her gallbladder was removed she has had chronic diarrhea. She denies any blood or mucus in her stool. She does report mild frequency with no dysuria or urgency. She denies any vaginal bleeding or discharge. I was informed by her nurse that she has leg swelling and is concerned this is related to her heart disease. She has history of valvular heart disease. Of note BMI is 37.9. Physical Examination: Vital signs are marked for an elevated blood pressure 137/78. She is not hypoxic. Head is atraumatic normocephalic. Pupils are equal round reactive. Extraocular muscles are intact. TMs are pearly white with landmarks noted. Nares patent with no drainage. Posterior pharynx without erythema or exudate. Uvula is midline. There is no dysphonia or dysphasia. Trachea is midline. There is no stridor with auscultation of the neck. Heart is regular without murmur, gallop or rub. S1 and S2 are normal. Lungs are clear to auscultation with good movement of air bilaterally. Abdomen is remarkable for mild tenderness without guarding or rebound tenderness. Bowel sounds are present normal. There is no CVA tenderness noted. Equivocal suprapubic discomfort to deep palpation. Neuro exam is nonfocal. Test Results: Serum test was negative. Urinalysis is consistent with a UTI with leukoesterase and blood on macro and 25-50 RBCs with 05 RBCs 5 epithelial cells and 1+ bacteria. Emergency Department Course and Treatment: Because she complains of vague abdominal pain with nausea a serum test was obtained. Because of her urinary symptoms a UA urinalysis was obtained. Treatment Plan: Macrobid 100 mg twice daily 5 days. Cultures not indicated since this is not a complex UTI. Disposition: Discharged home to follow-up with PCP. Apparently she does not have a PCP. Therefore, she was referred to Dr. López. Impression: 1. Generalized abdominal pain of unknown etiology 2. Acute cystitis 3. Elevated blood pressure in nonhypertensive patient This note was generated with [employer] dictation software. It may contain incorrect words, spelling, and punctuation that were not noted in review of the chart prior to signing ED Disposition - Plan for ED Patient: Disposition: Home or Assisted Living Chief Complaint: Nausea/Vomiting Instructions: ED Abdominal Pain Unkn Cause, ED Hypertension Poss, ED UTI Cystitis Female Prescriptions: Nitrofurantoin Monohyd/M-Cryst [Macrobid 100 mg Capsule] 100 mg PO BID #10 cap Referrals: Care Physician,No Primary [Primary Care Provider] - Panda Stock MD [STAFF PHYSICIAN] - 1 Week What to do if you have Problems For any increased pain, shortness of breath, bleeding, nausea or vomiting, chest pain, or any unexpected problems, contact your Primary Care Provider. Call [facility] ([phone]) or report to the closest Emergency Room. Call 911 if necessary. 03/05/18 1107 <Electronically signed by Naedr Marmolejo MD> Date Nader Marmolejo MD Cosigner Signature (If Indicated): Date CC: No Primary Care Physician; Francisco Stock MD ,SERUM,HCG QUALI. Collected: Status: F Source: [place] 03/05/2018 9:55 AM [facility] TYPE CODE TESTS RESULT OUT OF REFERENCE UNITS RANGE LAB L700.7000 0-9 Nonpreg Negative Normal HCGSQUAL NEGATIVE LAB L700.6700 =>Qualitative mIU/mL Normal HCG Qual < 1 triggr Performed By: #### L700.6800 #### [facility] [address] [place], [address] URINALYSIS, COMPLETE Collected: 03/05/2018 Status: F Source: [place] 9:50 AM [facility] Order Comment: How was Urine Obtained? CLEAN CATCH TYPE CODE TESTS RESULT OUT OF RANGE REFERENCE UNITS LAB L400.3000 Yellow COLOR Normal Yellow LAB L400.3050 Clear Normal CLARITY Cloudy LAB L400.3200 Normal mg/dl Normal GLUCOSE, UR Normal LAB L400.3300 Negative mg/dL Normal BILIRUBIN URINE Negative LAB L400.3400 Negative mg/dl Normal KETONE UR Negative LAB L400.3465 1.002-1.030 Normal SP.GR. DIPSTX 1.020 LAB L400.3550 5.0 - 8.0 pH UR Normal 6.0 LAB L400.3600 Negative mg/dl High PROT 15 DIPSTX LAB L400.3700 Normal mg/dl Normal UROBILI Normal LAB L400.3750 Negative Normal NITRITE UR Negative LAB L400.3780 Negative /ul High 25 OCCULT BLOOD-UR LAB L400.3800 Negative /ul High LEUK ESTERASE 500 LAB L400.4050 0-5 /hpf WBC Normal 25-50 SEEN LAB L400.4100 0-5 /hpf Normal RBC-UA 0-5 SEEN LAB L400.4150 5-10 /hpf SQUAM Normal EPI 5-10 SEEN LAB L400.4300 None Seen /hpf 1+ Normal BACTERIA LAB L400.4350 <or=2+ /hpf Normal MUCUS, URINE RARE Performed By: #### L400.0001 #### [facility] [address] [place], [address] EMERGENCY DEPARTMENT Observed: 02/15/2018 Status: F Source: [place] SUMMARY 11:56 PM [facility] Medical Records Department [address] [place] [address] Emergency Department Summary 02/15/18 2222 MR#: [id number] Acct: [id number] Name: KATIE CHENG Rep #: [id number] : 1995 22 From: Praneeth Mariscal MD PCP: Care Physician, No Primary Status: DEP ER - ER Visit Summary Date of Service: 02/15/18 Chief Complaint: Dental pain History of Present Illness: The patient is a 22 F presents to the emergency department with pain in the right upper jaw. The patient had a filling about 6 months ago and since then she has had persistent pain. She is actually scheduled to have a root canal done tomorrow. States the past 3 nights, the pain is worsened. She has been taking ibuprofen and Tylenol with little relief. She denies any trouble speaking or swallowing. She denies any trauma. She denies any fevers or chills. Physical Examination: Exam is relatively unremarkable. She does have some mild tenderness to palpation over tooth #3. There is no focal abscess. No Aaron angina. Some of the space is soft. No trismus or stridor. Test Results: [] Emergency Department Course and Treatment: The patient does have some mild tenderness. She may have periapical abscess. She is scheduled for root canal tomorrow. She is given 1 dose of analgesics here and will be started on antibiotics. The patient will be given 24 hours of analgesic coverage until she can of root canal done. There is no evidence of Aaron angina. She is discharged home. Treatment Plan: [] Disposition: Discharge Impression: 1. Dental pain tooth 3 This note was generated with [employer] dictation software. It may contain incorrect words, spelling, and punctuation that were not noted in review of the chart prior to signing ED Disposition - Plan for ED Patient: Chief Complaint: Dental Instructions: ED Tooth Pain Prescriptions: Oxycodone HCl/Acetaminophen [Percocet 5/325] 1 tab PO Q6H PRN PRN 2 Days #5 tab PRN Reason: Pain Amoxicillin 500 mg PO TID #30 tab Referrals: Cora Alaniz, DO [Primary Care Provider] - What to do if you have Problems For any increased pain, shortness of breath, bleeding, nausea or vomiting, chest pain, or any unexpected problems, contact your Primary Care Provider. Call [facility] ([phone]) or report to the closest Emergency Room. Call 911 if necessary. 02/15/18 5257 <Electronically signed by Praneeth Mariscal MD> Date Praneeth Mariscal MD Cosigner Signature (If Indicated): Date CC: No Primary Care Physician ALLERGIES ALLERGIES DATE TYPE / CODE NAME / CODE REACTION SEVERITY SOURCE 11/11/2018 Drug hydrocodone/F00 Other Unknown [facility] Allergy/125 4729360(RXNORM) [facility] 128154(SNOM Repository ED CT) 11/11/2018 Drug adhesive abrasion MO [facility] Allergy/416 tape/[id number] [facility] 951090(SNOM (RXNORM) Repository ED CT) ENCOUNTERS ENCOUNTERS ADMIT/DISCHARGE ACCOUNT ADMITTING ENCOUNTER LOCATION SOURCE NUMBER CLASS 11/11/2018/ [id number] Ambulatory BMSBuilding:B [place] 9 8 [facility] Repository 11/05/2018 [id number] Ambulatory BMSBuilding:B [place] 8 [facility] Repository 10/14/2018/ [id number] Ambulatory BMSBuilding:B [place] 8 9 [facility] 10/05/2018 [id number] Ambulatory [place] 8 [facility] Hospital ing:MFPLAB Repository 10/05/2018/ [id number] Ambulatory BMSBuilding:B [place] 8 7 [facility] 09/30/2018/ [id number] Ambulatory BMSBuilding:B [place] 8 0 [facility] 09/27/2018/ [id number] Ambulatory BMSBuilding:B [place] 8 5 [facility] Hospital Repository 08/19/2018 [id number] Ambulatory [place] 5 [facility] ing:WOBLAB Repository 08/16/2018 [id number] Ambulatory [place] 5 [facility] ing:WOBLAB Repository 08/13/2018 [id number] Ambulatory [place] 6 [facility] ing:[facility] Repository 08/12/2018/ [id number] Emergency [place] 8 0 [facility] ing:ED Repository 07/21/2018/ [id number] Emergency [place] 8 9 [facility] ing:ED Repository 05/21/2018 [id number] Ambulatory [place] 0 [facility] ing:OPUS Repository 05/18/2018 [id number] Ambulatory [place] 4 [facility] ing:LABSPEC Repository 04/23/2018 [id number] Ambulatory [place] 9 [facility] ing:LABSPEC Repository 03/05/2018/ [id number] Emergency [place] 8 1 [facility] ing:ED Repository 02/15/2018/ [id number] Emergency [place] 8 7 [facility] ing:ED Repository PAYERS PAYERS ENCOUNTER GUARANTOR PAYER SUBSCRIBER SOURCE 11/11/2018 KATIE Carbajal Primary Insurance:[facility] KATIE Arteaga [id number] [facility]: [facility] [id number] [facility] Medical [facility] [address]Vuj: Number: Repository [id number] (HP) Date:8189-72-04AH [address] [address], [place] [address]LO: CHECK WEBSITE 11/11/2018 Secondary NOT GIVENUNK [place] Insurance:SELF PAY [facility] Number: Effective Repository Date:2018-11-11 11/05/2018 KATIE Carbajal Primary Insurance:[facility]IE [facility]SIER[address] [facility] [id number] Regional Medical Center [address]Nkn: Number: Repository [id number] (HP) Date:9829-16-80WK [address] [address], [place] [address]EA: CHECK WEBSITE 11/05/2018 Secondary NOT GIVENUNK [place] Insurance:SELF PAY [facility] Number: Effective Repository Date:2018-11-05 10/14/2018 KATIE Carbajal Primary Insurance:[facility] KATIE Arteaga [id number] [facility] [id number] Regional Medical Center [address]Xqw: Number: Repository [id number] (HP) Date:8468-52-71WJ [address] [address], [place] [address]LJ: CHECK WEBSITE 10/14/2018 Secondary NOT GIVENUNK [place] Insurance:SELF PAY [facility] Number: Effective Repository Date:2018-10-13 10/05/2018 KATIE Carbajal Primary Insurance:[facility] KATIE FIELDSIER5143 [facility] [id number] Regional Medical [facility] [address]Fes: Number: Repository [id number] (HP) Date:6951-59-93AC [address] [address]XPC[place]AF[place], [place] [address]UZ: CHECK WEBSITE 10/05/2018 Secondary NOT GIVENUNK [place] Insurance:SELF PAY [facility] Number: Effective Repository Date:2018-10-05 10/05/2018 KATIE Carbajal Primary Insurance:[facility] KATIE FIELDSIER5143 [facility]: [facility] [id number] Regional Medical Center [address]Bry: Number: Repository [id number] (HP) Date:2991-96-44KB [address] [address]WLTDFDGZQ, [place] [address]OM: CHECK WEBSITE 10/05/2018 Secondary NOT GIVENUNK [place] Insurance:SELF PAY [facility] Number: Effective Repository Date:2018-10-05 09/30/2018 KATIE Carbajal Primary Insurance:[facility] KATIE M [place] [id number] [facility] [id number] Regional Medical Center [address]Rmh: Number: Repository [id number] () Date:0417-29-51CW [address] [address]ESJEFJMCB, [place] [address]ZC: CHECK WEBSITE 09/30/2018 Secondary NOT GIVENUNK [place] Insurance:SELF PAY [facility] Number: Effective Repository Date:2018-09-29 09/27/2018 KATIE Carbajal Primary Insurance:[facility] KATIE Carbajal [place] [id number] [facility] [id number] Regional Medical Center [address]Tbm: Number: Repository [id number] () Date:4651-89-01PR [address] [address]BEBFNVI, [place] [address]YW: CHECK WEBSITE 09/27/2018 Secondary NOT GIVENUNK [place] Insurance:SELF PAY [facility] Number: Effective Repository Date:2018-09-27 08/19/2018 KATIE Carbajal Primary NOT GIVENUNK [place] [id number] COAL Insurance:SELF PAY [facility] [place] [address]Mnl: Number: Effective Repository Date:2018-08-19 () 08/16/2018 KATIE Carbajal Primary NOT GIVENUNK [place] [id number] COAL Insurance:SELF PAY [facility] [place] [address]Tad: Number: Effective Repository Date:2018-08-16 (HP) 08/13/2018 KATIE Carbajal Primary NOT GIVENUNK [place] [id number] COAL Insurance:SELF PAY [facility] [address]Aaf: Number: Effective Repository Date:2018-08-13 (HP) 08/12/2018 KATIE Carbajal Primary NOT GIVENUNK [place] [id number] COAL Insurance:SELF PAY [facility] [place] [address]Gjb: Number: Effective Repository Date:2018-08-12 (HP) 07/21/2018 KATIE Carbajal Primary NOT GIVENUNK [place] [id number] COAL Insurance:SELF PAY [facility] [place] [address]Ynm: Number: Effective Repository Date:2018-07-21 (HP) 05/21/2018 KATIE Carbajal Primary Insurance:[facility] KATIE Carbajal [place] [id number] [facility] NAPIERDOB: Community BANK [facility], Number: [id number] Hospital [place] [address]Mfb: [id number] Repository Date:2018-04-29 (HP) 05/21/2018 Secondary NOT GIVENUNK [place] Insurance:SELF PAY [facility] Number: Effective Repository Date:2018-04-29 05/18/2018 KATIE Carbajal Primary NOT GIVENUNK [place] [id number] COAL Insurance:SELF PAY [facility] [place] [id number]: Number: Effective Repository Date:2018-05-18 (HP) 04/23/2018 KATIE Carbajal Primary NOT GIVENUNK [place] [id number] GUZMAN Insurance:SELF PAY [address] [place] [address]Egx: Number: Effective Repository Date:2018-04-23 (HP) 03/05/2018 KATIE Carbajal Primary NOT GIVENUNK [place] [id number] COAL Insurance:SELF PAY [facility] [place] [address]Htb: Number: Effective Repository Date:2018-03-05 (HP) 02/15/2018 KATIE Carbajal Primary NOT GIVENUNK [place] [id number] COAL Insurance:SELF PAY [facility] [place] [id number]: Number: Effective Repository Date:2018-02-15 (HP)
== END ==
PROVIDERS: Family Provider Family Medicine; PCP Family Medicine; Visit Provider Family Medicine
DX: F32.9 Major depressive disorder, single episode, unspecified (principal); E66.3 Overweight; Z13.220 Encounter for screening for lipoid disorders; Z13.1 Encounter for screening for diabetes mellitus
CPT/HCPCS: 36415; 80048; 80061; 82306; 82533; 84443; 85027

== ENCOUNTER → 2018-11-19 11:49 | Outpatient (CLI) | payer OTHER, SELFPAY ==
[2018-11-11 12:00] VITALS: BMI 34.9
--- NOTE | 2018-11-19 11:51 | ECHOD_ITS ---
Reason For Study: MURMUR Procedure This was a 2D Doppler, Color Flow transthoracic echocardiogram. The exam was of adequate technical quality. Exam performed in department. Left Ventricle Normal LV size. Left ventricular systolic function is normal. The estimated ejection fraction is 60 %. No evidence for diastolic dysfunction. No regional wall motion abnormalities noted. Right Ventricle Normal RV size. Normal systolic function. Atria Normal left atrium. Normal right atrium. No doppler evidence for ASD. Mitral Valve There is no mitral annular calcification. Normal mitral valve. Trivial mitral valve insufficiency. Tricuspid Valve Normal tricuspid valve. Trivial tricuspid valve insufficiency. Aortic Valve Trisinus/trileaflet aortic valve. Normal aortic valve. Pulmonic Valve Mild focal pulmonic valve calcification. Mild (1+) pulmonic valve insufficiency. Great Vessels Normal sized aortic root. Pericardium/Pleural No pericardial effusion. MMode/2D Measurements & Calculations LVIDd: 4.0 cm IVSd: 0.87 cm Ao root diam: 2.5 cm LVIDs: 2.8 cm LVPWd: 0.84 cm RVDd: 3.2 cm FS: 30.5 % LAV(MOD-bp): 30.8 ml LA A4 area: 15.3 cm2 LA dimension(2D): 2.7 cm LAV(MOD-bp) Indexed: 16.3 ml/m2 LAV(MOD-sp2): 20.8 ml LAV(MOD-sp4): 35.3 ml RA A4 area: 11.8 cm2 Time Measurements MV dec time: 0.23 sec Doppler Measurements & Calculations MV E max bill: 79.4 cm/sec Lat Peak E' Bill: 20.3 cm/sec Med Peak E' Bill: 14.0 cm/sec MV A max bill: 70.2 cm/sec E/E' lat: 3.9 E/E' med: 5.7 MV E/A: 1.1 Ao V2 max: 139.1 cm/sec LV V1 max: 119.4 cm/sec PA V2 max: 154.0 cm/sec Ao max P.7 mmHg LV V1 max P.7 mmHg PA V2 mean: 100.3 cm/sec PA V2 VTI: 27.8 cm Interpretation Summary Left ventricular systolic function is normal. The estimated ejection fraction is 60 %. Trivial mitral valve insufficiency. Trivial tricuspid valve insufficiency. 2D echocardiographic images appear c/w a pulmonic valve with mild focal calcification and spectral doppler findings with a pulmonic valve mean gradient of 4-5 mmHg c/w mild pulmonic valve stenosis. Mild (1+) pulmonic valve insufficiency. No evidence for diastolic dysfunction. Ordering Physician: Jonh Liz Referring Physician: GENESIS ROMO Performed By: Georgette Cotton, TODD, RVT
--- NOTE | 2018-11-19 13:04 | STRESSREP_ITS ---
Stress Test Report Date: 11/19/2018 Procedure: Exercise tolerance test Indications: Chest pain; pulmonary stenosis Consent: Per the patient Procedure: The patient exercised on a Asael protocol for 9 minutes completing Stage III achieving a peak heart rate of 196 bpm (98 % predicted maximal heart rate) with a peak blood pressure 160/50 mmHg and a peak MET capacity of approximately 10 MET's. The baseline ECG demonstrated Normal sinus rhythm . The peak exercise ECG demonstrated No obvious ECG changes with the recovery ECG demonstrating nonspecific ST and T-wave abnormality in leads III, aVF, and V5 through V6 with gradual resolution towards baseline and recovery . There were no cardiac dysrhythmias pretest, during exercise, or recovery. The functional capacity was considered good . The patient had no complaint of chest discomfort during exercise or recovery. The examination was discontinued secondary to dyspnea . Impression: 1. Technically adequate (percent predicted maximal heart rate greater than 85%) exercise tolerance test 2. Peak exercise ECG with no obvious ECG changes with the recovery ECG demonstrating nonspecific ST and T-wave abnormality in leads III, aVF, and V5 through V6 with gradual resolution towards baseline and recovery 3. There were no cardiac dysrhythmias during exercise or recovery This note was generated with [employer] software. It may contain incorrect words, spelling, and punctuation that were not noted in checking the note before signing.
== END ==
PROVIDERS: Family Provider Family Medicine; PCP Family Medicine; Referring Provider Internal Medicine Cardiovascular Disease; Visit Provider Internal Medicine Cardiovascular Disease
DX: R07.9 Chest pain, unspecified (principal); Q22.1 Congenital pulmonary valve stenosis
CPT/HCPCS: 93017; 93306

== ENCOUNTER 2018-11-22 23:41 | Emergency (ER) | payer OTHER, SELFPAY ==
[2018-11-11 12:00] VITALS: BMI 34.9
[2018-11-22 23:43] VITALS: BP 128/70; PULSE 92; RESP 18; TEMP 36.8; O2SAT 99; BMI 33.9
--- NOTE | 2018-11-23 00:10 | ED.DCSUM_ITS ---
- ER Visit Summary Date of Service: 11/23/18 Chief Complaint: [abd pain, nausea, vomiting] History of Present Illness: The patient is a 23 F [that presents with intermittent suprapubic abdominal pain, nausea, and vomiting. She states last week she was not able to tolerate anything without vomiting. She has had prior appendectomy and cholecystectomy remotely. She was able to eat yesterday without difficulty but states overall she has not had much appetite. She denies any urinary symptoms. Irregular periods currently on oral contraceptives. She denies any vaginal discharge or bleeding. She overall appears well and nontoxic. She has no other complaints.] Physical Examination: [General: The patient appears well and in no apparent distress. Patient is resting comfortably on cart. Skin: Warm, dry, no pallor noted. No rash. Head: Normocephalic, atraumatic Neck: Supple, nontender. ENT: Moist mucus membranes, pharynx within normal limits. Cardiovascular: Regular Rate and Rhythm, no gallups or rubs Respiratory: Patient is in no distress, no accessory muscle use, lungs are clear to auscultation, no wheezing, rales or rhonchi Musculoskeletal: normal ROM, no deformity, no tenderness, no swelling. 2+ radial and DP pulses symmetric. GI: Mild suprapubic tenderness to palpation, no masses appreciated. No rebound, guarding, or rigidity noted. Neurological: A&O, normal strength and sensation. Psychiatric: Cooperative] Test Results: [] Emergency Department Course and Treatment: [Patient was given IV fluids, Zofran, and Toradol with improvement of symptoms. CBC, CMP, and lipase overall within normal limits. HCG negative. Analysis concerning for acute cystitis given leukocytes and 10-25 white cells. Clinically this would fit with patient's symptoms given her mild suprapubic pain on examination. I will treat her with a course of Macrobid. I do not feel imaging is indicated at this time. She denies any significant flank pain and has no significant hematuria. I do not feel she has evidence of acute surgical process at this time. She will follow- up with her primary provider and return with any new or worsening symptoms. Patient understands and is agreeable with this plan of care. Patient was discharged home in stable and improved condition.] Treatment Plan: [see above] Disposition: [Discharge home, stable and improved condition ] Impression: [Acute cystitis, Nausea and vomiting - resolved ] This note was generated with [employer] dictation software. It may contain incorrect words, spelling, and punctuation that were not noted in review of the chart prior to signing ED Disposition - Plan for ED Patient: Disposition: Home or Assisted Living Chief Complaint: Abd Pain Instructions: ED Abdominal Pain Unkn Cause, ED UTI Cystitis Female Prescriptions: Nitrofurantoin Monohyd/M-Cryst [Macrobid 100 mg Capsule] 100 mg PO BID #13 capsule Referrals: Panda Stock MD [Primary Care Provider] -
[2018-11-23] MEDS: 0.9% Normal Saline 1,000 ML 1000 ML IV (00:13)
[2018-11-23] MEDS: Ketorolac 15 MG/ML Vial IV (00:13)
[2018-11-23] MEDS: Ondansetron 4 MG/2 ML Vial IV (00:13)
[2018-11-23 00:16] LABS: Color, Urine Yellow (Yellow); Glucose, Dipstick Normal (Normal); Ketone-Dipstick 5 mg/dl (Negative); Leukocyte Esterase-Dipstick 500 /ul (Negative); Nitrite-Dipstick Negative (Negative); Occult Blood-Urine 25 /ul (Negative); Protein-Dipstick 30 mg/dl (Negative); Urine Clarity Sl. Cloudy (Clear); Urine Urobilinogen 4 mg/dl (Normal); Urine pH 6.5 (5.0 - 8.0)
[2018-11-23 00:17] LABS: Absolute Lymphocyte Count 1.78 X10^3/ul (0.83-4.51); Absolute Neutrophil Count 3.9 X10^3/uL (2.0-7.7); Basophil# 0.05 X10^3/uL; Basophil% 0.8 % (0-1); Eosinophil# 0.07 X10^3/uL; Eosinophils% 1.1 % (0-5); Hematocrit 39.6 % (37-47); Lymphocyte # 1.78 X10^3/ul (4.0); Lymphocyte % 28.4 % (19-41); Mean Corp Hgb Conc 32.8 g/gl (32-36); Mean Corpuscular Hgb 28.7 pg (27.0-32.0); Mean Corpuscular Volume 87.4 fL (81-99); Mean Platelet Vol. 10.6 fl (6.2-12.0); Monocyte# 0.49 X10^3/uL; Monocyte% 7.8 % (0-10); Neutrophil # 3.86 X10^3/uL (2.7-7.7); Neutrophil % 61.7 % (47-70); Platelet Count 236 K/mm3 (150-450); RBC Distribution Width SD 44.6 fl (35.1-43.9); Red Blood Count 4.53 M/mm3 (4.2-5.4); White Blood Count 6.3 K/mm3 (4.4-11.0)
[2018-11-23 00:18] LABS: Internal QC Validated? YES +Cl - CLEAR BKGD; Pregnancy, Urine Negative Negative
[2018-11-23 00:19] LABS: POSITIVE COUNT NO; POSITIVE DIFFERENTIAL NO; POSITIVE MORPHOLOGY NO
[2018-11-23 00:26] LABS: Urine Bilirubin Dipstick 1 mg/dL (Negative)
[2018-11-23 00:27] LABS: Amorphous Sediment 1+ URATE; Bacteria RARE /hpf (None Seen); Mucous, Urine 1+ /hpf (<or=2+); Red Blood Cells-Urine 0-5 SEEN /hpf (0-5); Squamous Epithelial Cells - UA 5-10 SEEN /hpf (5-10); White Blood Cells 10-25 SEEN /hpf (0-5)
[2018-11-23 00:33] LABS: AST(SGOT) 26 U/L (15-37); Alanine Aminotransfer ALT/SGPT 48 U/L (13-56); Albumin, Serum 3.6 g/dL (3.2-5.0); Alkaline Phosphatase 76 U/L (45-117); Anion Gap 9 (5-15); BUN 8 mg/dL (7-18); BUN/Creat Ratio 10.4 RATIO (10-20); Calcium,Total 8.7 mg/dL (8.5-10.1); Chloride 106 mmol/L (98-107); Creatinine, Serum 0.77 mg/dL (0.55-1.02); EST Glomerular Filtration Rate 99 mL/min (>60); Est Glom Filt Rate - Afr Amer 120 mL/min (>60); Estimated Creatinine Clearance 90.64 ml/min; Globulin 3.7 g/dL (2.2-4.2); Glucose 88 mg/dL (74-106); Lipase 112 U/L (73-393); Potassium 3.7 mmol/L (3.5-5.1); Protein, Total 7.3 g/dL (6.4-8.2); Sodium Level 142 mmol/L (136-145)
[2018-11-23 00:48] VITALS: BP 126/77; PULSE 88; RESP 16; O2SAT 98
[2018-11-23] MEDS: Nitrofurantoin Macrocrystals 100 MG Capsule PO (00:50)
== END 2018-11-23 00:53 | disposition home or self-care (01) ==
PROVIDERS: Emergency Provider Emergency Medicine; Family Provider Family Medicine; PCP Family Medicine
DX: N30.00 Acute cystitis without hematuria (principal); R11.2 Nausea with vomiting, unspecified; Z79.899 Other long term (current) drug therapy; Z90.49 Acquired absence of other specified parts of digestive tract
CPT/HCPCS: 80053; 81001; 81025; 83690; 85025; 96361; 96374; 96375; 99284; J7030; A4216; J2405

== ENCOUNTER → 2018-12-21 09:28 | Outpatient (CLI) | payer OTHER, SELFPAY ==
[2018-11-22 23:43] VITALS: BMI 33.9
--- NOTE | 2018-12-21 09:31 | STE_ITS ---
Reason For Study: Chest Pain Stress Results Protocol: Stress Echocardiogram Maximum Predicted HR: 198 bpm Target HR: 168 bpm % Maximum Predicted HR: 87 % DurationHeart Rate Stage (mm:ss) (bpm) BP Comment BASELINE 82 122/70 ADRYAN PROTOCOL- STAGE 1 3:00 130 124/74 ADRYAN PROTOCOL- STAGE 2 3:00 148 140/74 ADRYAN PROTOCOL- STAGE 3 3:00 173 144/80DYSPNEA RECOVERY 105 122/72 Stress Duration: 9:00 mm:ss Maximum Stress HR: 173 bpm METS: 10 Baseline Echocardiogram Findings Stress Echo Wall motion Data Resting WM Intermediate WM Stress WM Resting Wall Motion Wall Motion Stress All segments Normal. All segments Hyperkinetic. Ejection Fraction 55 %. Ejection Fraction 70 %. Stress Results Heart rate response: appropriate Blood pressure response: normal resting BP - appropriate response Arrhythmias: none Functional capacity: good Stopped secondary to: dyspnea. EKG Data The baseline ECG displays normal sinus rhythm. Exercise ECG: no obvious ECG changes. Symptoms with Stress No c/o chest discomfort during exercise / recovery. Interpretation Summary Negative (adequate) stress echocardiogram Ordering Physician: Jonh Liz Referring Physician: Jonh Liz Performed By: Betty Duncan RDCS
== END ==
PROVIDERS: Family Provider Family Medicine; PCP Family Medicine; Referring Provider Internal Medicine Cardiovascular Disease; Visit Provider Internal Medicine Cardiovascular Disease
DX: R07.9 Chest pain, unspecified (principal); Q22.1 Congenital pulmonary valve stenosis; R94.39 Abnormal result of other cardiovascular function study
CPT/HCPCS: 93017; 93350

== ENCOUNTER → 2019-01-06 11:37 | Outpatient (CLI) | payer OTHER, SELFPAY ==
--- NOTE | 2019-01-06 11:38 | US_ITS ---
STUDY: THYROID ULTRASOUND REASON FOR EXAM: Female, 23 years old. Palpable nodule felt by physician TECHNIQUE: Ultrasound evaluation of the thyroid was performed with real-time and static haynes-scale imaging. COMPARISON: None. FINDINGS: RIGHT LOBE: The right lobe of the thyroid gland measures 5.2 x 1.4 x 1.5 cm. There is a homogeneous echotexture. There are no demonstrated solid, cystic or complex lesions. LEFT LOBE: The left lobe of the thyroid gland measures 5.0 x 1.4 x 1.2 cm. There is a homogeneous echotexture. There are no demonstrated solid, cystic or complex lesions. ISTHMUS: The isthmus measures 0.3 cm. The regional lymph nodes are normal. US/Thyroid IMPRESSION: Normal ultrasound examination of the thyroid. Electronically Signed: Rudy Raygoza MD at 19:52 EDT , Service support ,
== END ==
PROVIDERS: Family Provider Family Medicine; PCP Family Medicine; Referring Provider Family Medicine; Visit Provider Family Medicine
DX: E04.1 Nontoxic single thyroid nodule (principal)
CPT/HCPCS: 76536

== ENCOUNTER → 2019-02-17 11:47 | Outpatient (CLI) | payer OTHER, SELFPAY ==
--- NOTE | 2019-02-17 | BRBX_PTH ---
PATIENT: KATIE PULLIAM LOC: [facility] U#:[id number] AGE/SX: 30/ ROOM: RE02/17/[address]: Dr. Rita Dao MD : 1995 BED: DIS: SPEC #: [id number] RECD: 02/17/19 12:54 STATUS: HERBER REAdam #: [id number] KASH: 02/17/19 00:[address]: Rita Dao DEPT: SURGICAL PATHOLOGY RECD BY: Wm Rodriges ENTERED: 02/17/19 12:54 SP TYPE: BREAST BX OTHR DR: Dr. Francisco Stock MD Tissues: Right breast, NOS Procedures: Surgery Specimen Level IV HEADER OPERATION: Biopsy right breast cyst excision PRE-OP DIAGNOSIS: Right breast cyst TISSUE SUBMITTED: Right breast cyst sebaceous ISCHEMIC TIME: 5 seconds FIXATION TIME: 11 hours MICROSCOPIC DIAGNOSIS Right breast sebaceous cyst, biopsy: Fragments of keratinous material, consistent with contents of epidermal inclusion cyst. See comment. BROCK:hedy 02/18/19 COMMENT No epithelial lining is noted. MICROSCOPIC DESCRIPTION Slides are reviewed. GROSS DESCRIPTION Received in fixative is one container labeled with the patient's name and designated right breast cyst. The specimen consists of multiple irregular fragments of turk soft tissue that in aggregate measure 0.5 x 0.5 x 0.1 cm. The entire specimen is submitted in one cassette. / BROCK:hedy 02/17/19 TC:5 CPT: 47036
[2019-02-17 10:23] VITALS: BMI 35.5
== END ==
PROVIDERS: Family Provider Family Medicine; PCP Family Medicine; Referring Provider Surgery; Visit Provider Surgery
DX: N60.81 Other benign mammary dysplasias of right breast (principal)
CPT/HCPCS: 88305

== ENCOUNTER 2019-04-06 00:57 | Emergency (ER) | payer OTHER, SELFPAY ==
[2019-03-23 10:10] VITALS: BMI 35.5
[2019-04-06 00:58] VITALS: BP 131/82; PULSE 94; RESP 18; TEMP 36.4; O2SAT 97; BMI 36.3
--- NOTE | 2019-04-06 01:08 | EKG12_ITS ---
Test Reason : NEURO Blood Pressure : / mmHG Vent. Rate : 090 BPM Atrial Rate : 090 BPM P-R Int : 146 ms QRS Dur : 080 ms QT Int : 356 ms P-R-T Axes : 047 068 043 degrees QTc Int : 435 ms Normal sinus rhythm Normal ECG Confirmed by MEG SYKES MD ([id number]), production editor JENNY ALCOCER ([id number]) on 04/08/2019 10:05:56 AM Referred By: VINEET Confirmed By:MEG SYKES MD
[2019-04-06] MEDS: Ketorolac 30 MG/ML Syringe IV (01:50)
[2019-04-06] MEDS: Metoclopramide 10 MG/2 ML Vial IV (01:50)
[2019-04-06] MEDS: DiphenhydrAMINE 50 MG/ML Syringe 25 MG IV (01:50)
[2019-04-06] MEDS: 0.9% Normal Saline 1,000 ML 999 ML IV (01:51)
[2019-04-06 02:00] VITALS: BP 113/75; PULSE 102; RESP 27; O2SAT 98
--- NOTE | 2019-04-06 02:26 | ED.DCSUM_ITS ---
- ER Visit Summary Date of Service: 04/06/19 Chief Complaint: Headache History of Present Illness: The patient is a 24 F who presents with complaint of migraine for the past 2 days. She states pain has been waxing and waning but never resolves. It is throbbing and generalized in location. She states she occasionally get dizzy and nauseated when the pain gets severe. During these episodes she gets photophobia and gets a tingling sensation throughout her face. Tonight she noted some tingling down into the back of her neck and down towards both arms. Patient states she usually takes Tylenol for her headaches. Last dose of Tylenol was at 3 PM yesterday afternoon. Physical Examination: Vital signs unremarkable. Patient sitting upright in bed no acute distress. Lights are turned down for her comfort. Head and neck examination is unremarkable. No meningismus. No sign of trauma. Heart is regular rate and rhythm. Lung sounds are clear. Abdomen is soft and nontender. Neuro exam reveals normal strength and sensation throughout. Test Results: EKG was obtained by nursing staff due to the neuro complaints. This reveals sinus rhythm at 90 bpm. Emergency Department Course and Treatment: Patient was given Toradol, Reglan, Benadryl, and IV fluids. On repeat evaluation headache is improved. She is discharged home with family members. Treatment Plan: [] Disposition: Discharge Impression: Migraine, improved This note was generated with [employer] dictation software. It may contain incorrect words, spelling, and punctuation that were not noted in review of the chart prior to signing ED Disposition - Plan for ED Patient: Disposition: Home or Assisted Living Instructions: ED Headache Migraine Referrals: Panda Stock MD [Primary Care Provider] - 3-5 Days if not improving
[2019-04-06 02:35] VITALS: BP 113/75; PULSE 106; RESP 27; O2SAT 98
== END 2019-04-06 03:15 | disposition home or self-care (01) ==
PROVIDERS: Emergency Provider Emergency Medicine; Family Provider Family Medicine; PCP Family Medicine
DX: G43.909 Migraine, unspecified, not intractable, without status migrainosus (principal); K21.9 Gastro-esophageal reflux disease without esophagitis; F31.9 Bipolar disorder, unspecified; F41.9 Anxiety disorder, unspecified; Z79.899 Other long term (current) drug therapy
CPT/HCPCS: 93005; 96361; 96374; 96375; 99283; J7030; A4216

== ENCOUNTER → 2019-06-24 12:51 | Outpatient (CLI) | payer OTHER, SELFPAY ==
[2019-06-21 13:58] VITALS: BMI 36.3
--- NOTE | 2019-06-24 12:53 | US_ITS ---
STUDY: ULTRASOUND TRANSVAGINAL CLINICAL: Female, 24 years old. Pelvic pain. TECHNIQUE: Transvaginal COMPARISON: None. FINDINGS: Normal uterine size measuring 7.5 cm in maximal craniocaudal dimension. There are no myometrial masses. There are no endometrial masses, and there is no fluid in the endometrial cavity. There is an intrauterine device in place in a grossly satisfactory position. Normal uterine cervix. Normal right ovary, measuring 3.0 x 2.0 x 1.8 cm. There are multiple follicles without a dominant cyst. Normal left ovary, measuring 3.0 x 3.2 x 3.2 cm. There is a 2.5 x 2.6 x 1.8 cm complex cyst within the left ovary. There is no free fluid in the pelvis. Polycystic ovary disease: No. US/Pelvic (Non ) IMPRESSION: 2.5 x 2.6 x 1.8 cm complex left ovarian cyst which may reflect an underlying endometrioma or hemorrhagic cyst. Electronically Signed: Flavia Hernandez MD at 16:49 EDT Tel , Service support ,
--- NOTE | 2019-06-24 12:53 | US_ITS ---
STUDY: ULTRASOUND TRANSVAGINAL CLINICAL: Female, 24 years old. Pelvic pain. TECHNIQUE: Transvaginal COMPARISON: None. FINDINGS: Normal uterine size measuring 7.5 cm in maximal craniocaudal dimension. There are no myometrial masses. There are no endometrial masses, and there is no fluid in the endometrial cavity. There is an intrauterine device in place in a grossly satisfactory position. Normal uterine cervix. Normal right ovary, measuring 3.0 x 2.0 x 1.8 cm. There are multiple follicles without a dominant cyst. Normal left ovary, measuring 3.0 x 3.2 x 3.2 cm. There is a 2.5 x 2.6 x 1.8 cm complex cyst within the left ovary. There is no free fluid in the pelvis. Polycystic ovary disease: No. US/Transvaginal Non- IMPRESSION: 2.5 x 2.6 x 1.8 cm complex left ovarian cyst which may reflect an underlying endometrioma or hemorrhagic cyst. Electronically Signed: Flavia Hernandez MD at 16:49 EDT Tel , Service support ,
== END ==
PROVIDERS: Family Provider Family Medicine; PCP Family Medicine; Referring Provider Nurse Practitioner Women's Health; Visit Provider Nurse Practitioner Women's Health
DX: R10.2 Pelvic and perineal pain (principal)
CPT/HCPCS: 76830; 76856; 93976

== ENCOUNTER → 2019-06-28 15:06 | Outpatient (CLI) | payer OTHER, SELFPAY ==
[2019-06-21 13:58] VITALS: BMI 36.3
== END ==
PROVIDERS: Family Provider Family Medicine; PCP Family Medicine; Referring Provider Nurse Practitioner Women's Health; Visit Provider Nurse Practitioner Women's Health
DX: N39.0 Urinary tract infection, site not specified (principal)
CPT/HCPCS: 87086; 87088

== ENCOUNTER → 2019-07-07 10:58 | Outpatient (CLI) | payer OTHER, SELFPAY ==
[2019-06-21 13:58] VITALS: BMI 36.3
--- NOTE | 2019-07-07 11:16 | RAD_ITS ---
STUDY: X-RAY - RIGHT FOOT CLINICAL: Female, 24 years old. Bunion TECHNIQUE: 3 view(s) of the foot. COMPARISON: None. FINDINGS: Normal talus, calcaneus, and tarsal bones. Normal visualized subtalar, talonavicular, calcaneocuboid, tarsal and tarsometatarsal articulations. Normal metatarsi. There is degenerative arthrosis of the metatarsophalangeal joint of the hallux with a hallux valgus deformity. Normal tibial and fibular sesamoid bones. Normal interphalangeal joint of the great toe. Normal phalanges of the great toe. Normal second through fifth metatarsophalangeal joints. Normal interphalangeal joints and phalanges of the lesser toes. The soft tissue structures are unremarkable. RAD/Foot min 3 Views IMPRESSION: Mild hallux valgus deformity. Electronically Signed: Maxime Hough MD at 11:32 EDT Tel , Service support ,
== END ==
PROVIDERS: Family Provider Family Medicine; PCP Family Medicine; Referring Provider Family Medicine; Visit Provider Family Medicine
DX: M21.611 Bunion of right foot (principal); E55.9 Vitamin D deficiency, unspecified
CPT/HCPCS: 36415; 73630; 82306

== ENCOUNTER → 2019-08-09 10:33 | Outpatient (CLI) | payer OTHER, SELFPAY ==
[2019-08-09 10:18] VITALS: BMI 37.5
== END ==
PROVIDERS: Family Provider Family Medicine; PCP Family Medicine; Referring Provider Nurse Practitioner Women's Health; Visit Provider Nurse Practitioner Women's Health
DX: Z82.49 Family history of ischemic heart disease and other diseases of the circulatory system (principal)
CPT/HCPCS: 36415; 81241; 85245

== ENCOUNTER → 2019-08-22 13:32 | Outpatient (CLI) | payer OTHER, SELFPAY ==
[2019-08-09 10:18] VITALS: BMI 37.5
--- NOTE | 2019-08-22 13:35 | MRI_ITS ---
STUDY: MRI LEFT KNEE REASON FOR EXAM: Female, 24 years old. Pain. Prior surgery TECHNIQUE: Standardized fat and water weighted pulse sequences were obtained in all 3 orthogonal planes. COMPARISON: None. FINDINGS: Stable focal irregularity at the junction of the posterior horn and body of the medial meniscus. Normal hyaline cartilage of the medial femorotibial compartment. Normal medial femoral condyle and tibial plateau. Normal medial collateral ligamentous complex (MCL). Normal distal semimembranosus, gracilis and semitendinosus tendons. Normal lateral meniscus. Normal hyaline cartilage of the lateral femorotibial compartment. Normal lateral femoral condyle and tibial plateau. Normal proximal tibiofibular articulation. Normal lateral collateral (fibular) ligament. Normal popliteus tendon. Normal biceps femoris tendon. Normal anterior cruciate ligament (ACL). Normal posterior cruciate ligament (PCL). Normal congruent patellofemoral articulation. Normal hyaline cartilage of the patellofemoral compartment. Normal medial and lateral patellar retinaculum. Normal quadriceps tendon. Normal patellar tendon. Normal Hoffa's fat pad. There is a small volume joint effusion. The soft tissues are unremarkable. The otherwise visualized osseous structures are unremarkable. MRI/Lower Ext Joint Only (Routine) IMPRESSION: Stable irregularity of the medial meniscus consistent with postoperative change. No new tear. Small joint effusion. Electronically Signed: Rodriguez Harkins MD at 16:32 EDT , Service support ,
== END ==
PROVIDERS: Family Provider Family Medicine; PCP Family Medicine; Referring Provider Orthopaedic Surgery; Visit Provider Orthopaedic Surgery
DX: S83.92XA Sprain of unspecified site of left knee, initial encounter (principal); M25.562 Pain in left knee
CPT/HCPCS: 73721

== ENCOUNTER 2019-09-06 21:18 | Emergency (ER) | payer OTHER, SELFPAY ==
[2019-08-09 10:18] VITALS: BMI 37.5
[2019-09-06 21:18] VITALS: BP 137/75; PULSE 111; RESP 20; TEMP 36.1; O2SAT 99; BMI 36.2
--- NOTE | 2019-09-06 21:21 | ED.RN ---
PULLED OLD JAVIER FOR
--- NOTE | 2019-09-06 21:25 | EKG12_ITS ---
Test Reason : CP Blood Pressure : / mmHG Vent. Rate : 097 BPM Atrial Rate : 097 BPM P-R Int : 148 ms QRS Dur : 078 ms QT Int : 344 ms P-R-T Axes : 057 056 042 degrees QTc Int : 436 ms Normal sinus rhythm Normal ECG Confirmed by FRANTZ PERKINS ([id number]), commercial production editor GAYLA GUADARRAMA ([id number]) on 09/09/2019 11:14:41 AM Referred By: MAVIS Confirmed By:FRANTZ PERKINS
--- NOTE | 2019-09-06 21:31 | ED.VIS.GEN ---
History of Present Illness Chief Complaint: Chest Pain Detail of Chief Complaint: Chest pain, shortness of breath, cough Informant: Patient Onset: Yesterday Context: Sudden Onset Timing: Continuous Quality: Dyspnea, dyspnea on exertion, pressure and nonproductive cough Location: Respiratory Current Severity: Mild Maximum Severity: Moderate Worsened by: Activity Relieved by: Nothing Associated Symptoms: Shortness of breath and cough Narrative: Patient is a 24-year-old non-smoker who presents with chief complaint of heavy sensation in her chest with shortness of breath and dyspnea on exertion. Onset yesterday. She states she has a history of pulmonary valve stenosis. She denies rhinorrhea, congestion or postnasal drainage. Denies sore throat. She denies history of PE or DVT. There is family history of PE and DVT. Since she has a hormonal implanted device for control she was assessed for hypercoagulable state. She states she was told her tests were negative. She denies leg pain or discoloration. She does report mild nausea with no other GI symptoms. She denies any symptoms. Prior similar symptoms: No Recent Illness/Hospitalization: No - Past Medical History (1) Anxiety Status: Acute (2) Encounter for IUD removal Status: Acute (3) Family history of DVT Status: Acute Comment: Patient with negative screening (4) Heart murmur Status: Acute (5) Pancreatitis Status: Acute (6) Depression Status: Chronic (7) Chest pain Status: Resolved Past Medical History - Allergies and Home Meds Allergies/Adverse Reactions: Allergies adhesive tape Allergy (Intermediate, Verified 08/09/19 10:18) abrasion hydrocodone [From Vicodin] Adverse Reaction (Verified 08/09/19 10:18) Other Primary Care Physician: Panda Stock MD [Primary Care Provider] - Prior records reviewed: Yes Surgical History: - - IUD Lives: Alone Smoking Status: Never smoker Alcohol: None Drugs: None Review of Systems General: Denies: Chills, Fever, Sweats Eyes: Denies: Visual changes - bilaterally, Diplopia ENT: Denies: Rhinorrhea, Sore throat Cardiovascular: Reports: Chest pain, Palpitations Respiratory: Reports: Dyspnea, Dyspnea on exertion. Denies: Cough, Sputum, Orthopnea, Paroxysmal nocturnal dyspnea, -, - Gastrointestinal: Reports: Nausea. Denies: Abdominal pain, Vomiting, Diarrhea, Constipation, Melena, Hematochezia, -, - Genitourinary: Denies: Dysuria, Hematuria, Frequency Musculoskeletal: Denies: Back pain, Extremity Pain Skin: Denies: Rash, Wounds Neurological: Denies: Headache, Weakness, Numbness Hematologic: Denies: Easy bruising, Easy bleeding Allergy: Denies: Uticaria, Swelling of the mouth Physical Exam Vital Signs/Narrative: Vital Signs Temp Pulse Resp BP Pulse Ox 09/06/19 21:18 97 F L 111 H 20 H 137/75 H 99 Inital Vital Signs reviewed: Yes General: Well nourished, Well developed, Obese, No Acute Distress Head: Normocephalic, Atraumatic Eyes: Perrl, EOMI ENT: Moist mucous membranes, No rhinorrhea Neck: Supple, Nontender Cardiovascular: Regular rhythm, No murmurs, Normal S1, Normal S2, Tachycardia Respiratory: No distress, CTA bilaterally, Chest nontender Abdomen: Soft, Nontender, Nondistended, Normal bowel sounds Back: Nontender, Normal Inspection Extremities: Nontender, No edema, - - There is no asymmetry, swelling, discoloration, leg vein distention, palpable cords or tenderness along the distribution of the deep venous system. Skin: Normal color, No rash Neurological: Alert, Oriented x3, Cranial nerves II-XII grossly intact, Normal Strength, Normal Sensation, Normal Gait Psychological: Normal affect, Normal Mood Diagnostic/Tx/Re-eval Chest X-Ray - ED: 2 View, Read by ED Physician, Normal, Heart, Lungs, Mediastinum, Bony Structures, No Acute Disease, - - Home interpreted by me at 2155. 09/06/19 21:25 Chest PA and Lateral [RAD] Stat Laboratory Results 09/06/19 09/06/19 09/06/19 21:30 21:30 21:30 WBC 11.4 H RBC 4.48 Hgb 12.9 Hct 39.2 MCV 87.5 MCH 28.8 MCHC 32.9 RDW Std Deviation 42.3 RDW Coeff of Amber 13.2 Plt Count 275 MPV 10.8 Immature Gran % (Auto) 0.300 Neut % (Auto) 82.3 H Lymph % (Auto) 10.6 L [place] % (Auto) 5.9 Eos % (Auto) 0.7 Baso % (Auto) 0.2 Absolute Neuts (auto) 9.4 H Absolute Lymphs (auto) 1.21 Nucleated RBC % 0 D-Dimer Quant (PE/DVT) 0.55 H* Sodium 141 Potassium 3.4 L Chloride 108 H Carbon Dioxide 27.0 Anion Gap 6 BUN 11 Creatinine 0.78 Estim Creat Clear Calc 88.72 Est GFR (MDRD) Af Amer 117 Est GFR (MDRD) Non-Af 97 BUN/Creatinine Ratio 14.1 Glucose 102 Calcium 8.9 D-dimer is elevated with family history of blood clots and normal chest x-ray will obtain CTA to evaluate for pulmonary embolus. CT/CTA Chest W/WO Contrast IMPRESSION: Normal CTA chest examination, without a demonstrated pulmonary embolism or aortic dissection. Electronically Signed: Charlie Valle MD at 22:26 EST Tel , Service support , - Rhythm Strip Rhythm Strip: Sinus Rhythm Rate: 99 - EKG Initial EKG Interpretation: Sinus Rhythm - Sinus rhythm with ventricular rate of 97. GA interval is 148 ms. QRS duration 78 ms. QT duration 344 ms. [place] is normal. The EKG is normal. - Medical Decision Making Because patient has IUD is tachycardic and the family history of DVT a d-dimer was obtained. She is not PERC negative. Chest x-ray was obtained to determine if there is a pulmonary cause for her shortness of breath. EKG to evaluate for evidence of right heart strain or ischemia. Since the d-dimer is elevated there is no abnormality on the chest x-ray, will obtain CTA of the chest. CTA of the chest was negative for any abnormality. ED Disposition - Plan for ED Patient: Disposition: Home or Assisted Living Diagnosis: Chest pain made worse by breathing Instructions: CHEST PAIN, Uncertain Cause Referrals: Panda Stock MD [Primary Care Provider] - 1 Week if not improving Additional Instructions: Take either 4 Advil every 8 hours or 2 Aleve every 12 hours for the next 3 to 5 days.
[2019-09-06 21:39] LABS: Absolute Lymphocyte Count 1.21 X10^3/uL (0.83-4.51); Absolute Neutrophil Count 9.4 X10^3/uL (2.0-7.7); Basophil# 0.02 X10^3/uL; Basophil% 0.2 % (0-1); Eosinophil# 0.08 X10^3/uL; Eosinophils% 0.7 % (0-5); Hematocrit 39.2 % (37-47); Hemoglobin 12.9 g/dL (12.0-15.0); Lymphocyte # 1.21 X10^3/ul (4.0); Lymphocyte % 10.6 % (19-41); Mean Corp Hgb Conc 32.9 g/dL (32-36); Mean Corpuscular Hgb 28.8 pg (27.0-32.0); Mean Corpuscular Volume 87.5 fL (81-99); Mean Platelet Vol. 10.8 fl (6.2-12.0); Monocyte# 0.68 X10^3/uL; Monocyte% 5.9 % (0-10); NRBC Flagged by Analyzer 0 % (0-5); Neutrophil # 9.41 X10^3/uL (2.7-7.7); Neutrophil % 82.3 % (47-70); Platelet Count 275 K/mm3 (150-450); RBC Distribution Width CV 13.2 % (11.6-14.6); RBC Distribution Width SD 42.3 fl (35.1-43.9); Red Blood Count 4.48 M/mm3 (4.2-5.4); White Blood Count 11.4 K/mm3 (4.4-11.0)
[2019-09-06 21:50] LABS: Anion Gap 6 (5-15); BUN 11 mg/dL (7-18); BUN/Creat Ratio 14.1 RATIO (10-20); Calcium,Total 8.9 mg/dL (8.5-10.1); Chloride 108 mmol/L (98-107); Creatinine, Serum 0.78 mg/dL (0.55-1.02); EST Glomerular Filtration Rate 97 mL/min (>60); Est Glom Filt Rate - Afr Amer 117 mL/min (>60); Estimated Creatinine Clearance 88.72 ml/min; Glucose 102 mg/dL (74-106); Potassium 3.4 mmol/L (3.5-5.1); Sodium Level 141 mmol/L (136-145)
--- NOTE | 2019-09-06 21:50 | RAD_ITS ---
STUDY: X-RAY CHEST REASON FOR EXAM: Female, 24 years old. Chest pain TECHNIQUE: Frontal and lateral views of the chest. COMPARISON: 07/21/2018 FINDINGS: The lungs are clear and expanded. There is no demonstrated pleural abnormality. Normal size heart. Normal mediastinum and oswald. Normal visualized pulmonary arteries. Normal visualized aortic arch and descending thoracic aorta. Normal visualized thoracic spine. Normal visualized ribs, clavicles, and shoulders. Cholecystectomy clips. RAD/Chest PA and Lateral IMPRESSION: No acute pulmonary findings. Electronically Signed: Charlie Valle MD at 22:03 EST Tel , Service support ,
[2019-09-06 21:52] LABS: D-Dimer Quantitative (DVT/PE) 0.55 FEU/ug/m (0.27-0.49)
--- NOTE | 2019-09-06 21:55 | CT_ITS ---
STUDY: CTA CHEST REASON FOR EXAM: Female, 24 years old. Chest pain RADIATION DOSAGE (If Supplied By Facility): CTDIvol = ( 13.50 ) mGy, DLP = ( 467.46 ) mGycm TECHNIQUE: The examination was performed with the intravenous administration of IV Isovue 250 75ML. Post-processing of the angiographic images was performed, with multiplanar reformation and 3D reconstruction. Individualized dose optimization techniques were used for this CT. COMPARISON: 07/21/2018 FINDINGS: Normal enhancement of the main pulmonary artery and right and left pulmonary arteries. Normal enhancement of the bilateral peripheral pulmonary arteries. There is no demonstrated pulmonary embolism. Normal thoracic aorta and visualized great vessels. There is no demonstrated aortic dissection. Normal heart and pericardium. Normal mediastinum. Normal hilar regions. Normal visualized trachea and bronchi. The lungs are well expanded. Normal pulmonary parenchyma. Normal pleura. Normal chest wall structures. Normal osseous structures. Cholecystectomy. CT/CTA Chest W/WO Contrast IMPRESSION: Normal CTA chest examination, without a demonstrated pulmonary embolism or aortic dissection. Electronically Signed: Charlie Valle MD at 22:26 EST Tel , Service support ,
[2019-09-06 21:56] LABS: Internal QC Validated? YES +Cl - CLEAR BKGD; Pregnancy, Serum, hCG Quali. NEGATIVE Negative
[2019-09-06 22:41] VITALS: BP 107/68; PULSE 90; RESP 25; O2SAT 96
== END 2019-09-06 22:45 | disposition home or self-care (01) ==
PROVIDERS: Emergency Provider Emergency Medicine; Family Provider Family Medicine; PCP Family Medicine
DX: R07.1 Chest pain on breathing (principal); R74.8 Abnormal levels of other serum enzymes; R00.0 Tachycardia, unspecified; I37.0 Nonrheumatic pulmonary valve stenosis; R11.0 Nausea; F32.9 Major depressive disorder, single episode, unspecified; F41.9 Anxiety disorder, unspecified; Z79.899 Other long term (current) drug therapy; Z97.5 Presence of (intrauterine) contraceptive device; Z88.5 Allergy status to narcotic agent
CPT/HCPCS: 71046; 71275; 80048; 84703; 85025; 85379; 93005; 99283; Q9967; A4216

== ENCOUNTER → 2019-10-12 15:18 | Outpatient (CLI) | payer OTHER, SELFPAY ==
[2019-10-12 16:21] LABS: Free T3 2.7 pg/mL (2.18-3.98); T4 Free Direct 1.08 ng/dL (0.76-1.46); Thyroid Stim Hormone (TSH) 1.32 uIU/mL (0.358-3.74)
== END ==
LOC: LABSPEC 15:19
PROVIDERS: Family Provider Family Medicine; PCP Family Medicine; Visit Provider Family Medicine
DX: E66.9 Obesity, unspecified (principal)
CPT/HCPCS: 36415; 82533; 84439; 84443; 84481

== ENCOUNTER → 2019-10-28 16:44 | Outpatient (CLI) | payer OTHER, SELFPAY ==
[2019-10-28 17:25] LABS: hCG Titer Quant., Serum < 1 mIU/mL (1-3)
== END ==
PROVIDERS: Family Provider Family Medicine; PCP Family Medicine; Referring Provider Obstetrics & Gynecology; Visit Provider Obstetrics & Gynecology
DX: N91.2 Amenorrhea, unspecified (principal)
CPT/HCPCS: 36415; 84702

== ENCOUNTER → 2019-12-12 15:01 | Outpatient (CLI) | payer OTHER, SELFPAY ==
[2019-12-07 13:03] VITALS: BMI 37.8
[2019-12-12 16:18] LABS: Estradiol 22.9 pg/mL; Follicle Stimulating Hormone 4.9 mIU/mL; Prolactin 17.1 ng/mL
== END ==
PROVIDERS: PCP Family Medicine; Referring Provider Nurse Practitioner Women's Health; Visit Provider Nurse Practitioner Women's Health
DX: N91.4 Secondary oligomenorrhea (principal)
CPT/HCPCS: 36415; 82670; 83001; 84146

== ENCOUNTER → 2019-12-30 14:35 | Outpatient (CLI) | payer OTHER, SELFPAY ==
[2019-12-07 13:03] VITALS: BMI 37.8
[2019-12-30 15:24] LABS: Progesterone Level 0.42 ng/mL (See Comment)
== END ==
PROVIDERS: PCP Family Medicine; Visit Provider Nurse Practitioner Women's Health
DX: N91.5 Oligomenorrhea, unspecified (principal)
CPT/HCPCS: 36415; 84144

== ENCOUNTER → 2020-03-06 | Outpatient (CLI) | payer OTHER, SELFPAY ==
[2019-12-07 13:03] VITALS: BMI 37.8
[2020-03-06 18:42] LABS: Chlamydia Trachomatis by PCR Negative (Negative); Neisserai gonorrhoeae by PCR Negative (Negative); Probe Check PASS; Sample Adequacy Control PASS; Specimen Processing Control PASS
== END | disposition home or self-care (01) ==
LOC: LABSPEC 15:10
PROVIDERS: Visit Provider Nurse Practitioner Women's Health
DX: A64 Unspecified sexually transmitted disease (principal)
CPT/HCPCS: 87491; 87591

== ENCOUNTER → 2020-05-22 16:32 | Outpatient (CLI) | payer OTHER, SELFPAY ==
[2020-05-22 11:13] VITALS: BMI 37.8
[2020-05-26 10:47] LABS: HPV Reflexed? NOT INDICATED
== END ==
PROVIDERS: PCP Family Medicine; Referring Provider Nurse Practitioner Women's Health; Visit Provider Nurse Practitioner Women's Health
DX: Z12.4 Encounter for screening for malignant neoplasm of cervix (principal)
CPT/HCPCS: 88175; G0145

== ENCOUNTER → 2020-06-12 12:23 | Outpatient (CLI) | payer OTHER, SELFPAY ==
[2020-05-24 12:35] VITALS: BMI 37.8
[2020-06-12 15:41] LABS: Vitamin D,25 Hydroxy 27.2 ng/mL
[2020-06-12 15:48] LABS: Thyroid Stim Hormone (TSH) 1.37 uIU/mL (0.358-3.74)
== END ==
LOC: MFPLAB 12:24
PROVIDERS: PCP Family Medicine; Referring Provider Family Medicine; Visit Provider Family Medicine
DX: R53.83 Other fatigue (principal); E55.9 Vitamin D deficiency, unspecified; E66.9 Obesity, unspecified
CPT/HCPCS: 36415; 82306; 82533; 84439; 84443

== ENCOUNTER → 2020-06-26 12:26 | Outpatient (CLI) | payer OTHER, SELFPAY ==
[2020-05-24 12:35] VITALS: BMI 37.8
[2020-06-18 11:01] VITALS: BMI 37.8
--- NOTE | 2020-06-26 12:27 | US_ITS ---
STUDY: ULTRASOUND OF THE FEMALE PELVIS - COMPLETE REASON FOR EXAM: Female, 25 years old. Irregular menses LMP: 06/09/2020. TECHNIQUE: Transabdominal and Transvaginal TECHNICAL QUALITY: Adequate. COMPARISON: Comparison is made with prior study dated 06/24/2019. FINDINGS: The uterus is anteverted and is in a midline position. The uterus measures 7.0 cm x 3.7 cm x 2.6 cm. Normal uterine cervix. The endometrium measures 5.4 mm in thickness, and is hyperechoic. There is no demonstrated endometrial mass. There is no demonstrated myometrial mass. I.U.D. - The patient does not have an I.U.D. The right ovary is visualized. The right ovary measures 4.3 cm x 3 cm x 2.7 cm. There is a 2.6 cm x 2.3 cm x 2.6 cm right ovarian cyst. There is no visualized right adnexal mass or complex lesion. There is normal arterial and normal venous vascularity. The left ovary is visualized. The left ovary measures 2.9 cm x 3.3 cm x 2.1 cm. There is no left ovarian cyst or ovarian mass. There is no visualized left adnexal mass or complex lesion. There is normal arterial and normal venous vascularity. There is no fluid in the cul-de-sac. The pre void volume of the bladder was 189 ml. Polycystic ovary disease: No. US/Pelvic (Non ) IMPRESSION: 2.6 cm x 2.3 cm x 2.6 cm right ovarian cyst. Electronically Signed: Alexandre Lozano, at 14:33 EDT , Service support ,
--- NOTE | 2020-06-26 12:27 | US_ITS ---
STUDY: ULTRASOUND OF THE FEMALE PELVIS - COMPLETE REASON FOR EXAM: Female, 25 years old. Irregular menses LMP: 06/09/2020. TECHNIQUE: Transabdominal and Transvaginal TECHNICAL QUALITY: Adequate. COMPARISON: Comparison is made with prior study dated 06/24/2019. FINDINGS: The uterus is anteverted and is in a midline position. The uterus measures 7.0 cm x 3.7 cm x 2.6 cm. Normal uterine cervix. The endometrium measures 5.4 mm in thickness, and is hyperechoic. There is no demonstrated endometrial mass. There is no demonstrated myometrial mass. I.U.D. - The patient does not have an I.U.D. The right ovary is visualized. The right ovary measures 4.3 cm x 3 cm x 2.7 cm. There is a 2.6 cm x 2.3 cm x 2.6 cm right ovarian cyst. There is no visualized right adnexal mass or complex lesion. There is normal arterial and normal venous vascularity. The left ovary is visualized. The left ovary measures 2.9 cm x 3.3 cm x 2.1 cm. There is no left ovarian cyst or ovarian mass. There is no visualized left adnexal mass or complex lesion. There is normal arterial and normal venous vascularity. There is no fluid in the cul-de-sac. The pre void volume of the bladder was 189 ml. Polycystic ovary disease: No. US/Transvaginal Non- IMPRESSION: 2.6 cm x 2.3 cm x 2.6 cm right ovarian cyst. Electronically Signed: Alexandre Lozano, at 14:33 EDT , Service support ,
== END ==
PROVIDERS: PCP Family Medicine; Referring Provider Nurse Practitioner Women's Health; Visit Provider Nurse Practitioner Women's Health
DX: N92.6 Irregular menstruation, unspecified (principal); N83.201 Unspecified ovarian cyst, right side
CPT/HCPCS: 76830; 76856; 93976

== ENCOUNTER 2020-08-31 18:40 | Emergency (ER) | payer OTHER, SELFPAY ==
[2020-08-08 09:43] VITALS: BMI 38.6
[2020-08-31 18:41] VITALS: BP 127/74; PULSE 103; RESP 19; TEMP 36.2; O2SAT 99; BMI 38.5
--- NOTE | 2020-08-31 19:41 | ED.VIS.GEN ---
History of Present Illness Chief Complaint: General Illness Narrative: Patient presenting secondary to generalized illness. 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 Patient states that last night she felt little bit lightheaded so she went to bed, today she woke up with body aches nausea with no vomiting and a cough. Patient states that she does not have a headache, sore throat, diarrhea. She does have some mild diffuse abdominal pain. Patient is otherwise healthy, denies any history of respiratory disease or immunosuppression. Review of systems otherwise negative. Past Medical History - Allergies and Home Meds Allergies/Adverse Reactions: Allergies adhesive tape Allergy (Intermediate, Verified 08/31/20 18:41) abrasion hydrocodone [From Vicodin] Adverse Reaction (Verified 08/31/20 18:41) Other Primary Care Physician: Panda Stock MD [Primary Care Provider] - Prior records reviewed: Yes Past Medical History: - - Prior history of depression Surgical History: - - IUD Lives: With Family Smoking Status: Never smoker Alcohol: None Drugs: None Review of Systems All systems negative except as indicated General: Reports: Fever, Malaise Eyes: Denies: Visual changes - bilaterally, Diplopia ENT: Denies: Rhinorrhea, Sore throat Cardiovascular: Denies: Chest pain, Palpitations Respiratory: Reports: Cough Gastrointestinal: Reports: Abdominal pain, Nausea. Denies: Vomiting Genitourinary: Denies: Dysuria, Hematuria, Frequency Musculoskeletal: Reports: Myalgias Skin: Denies: Rash Neurological: Denies: Headache, Weakness, Numbness Physical Exam Vital Signs/Narrative: Vital Signs Temp Pulse Resp BP Pulse Ox 08/31/20 18:41 97.2 F L 103 H 19 H 127/74 H 99 Inital Vital Signs reviewed: Yes General: Well nourished, Well developed, No Acute Distress Head: Normocephalic, Atraumatic Eyes: Perrl, EOMI ENT: Moist mucous membranes, No rhinorrhea Neck: Supple, Nontender Cardiovascular: Regular rate, Regular rhythm, No murmurs, - - Patient was tachycardic upon triage, she had a normal heart rate in the 90s when I evaluated the patient Respiratory: No distress, CTA bilaterally, Chest nontender Abdomen: Soft, Nontender, Nondistended, Normal bowel sounds Back: Nontender, Normal Inspection Extremities: Nontender, No edema Skin: Normal color, No rash Neurological: Alert, Oriented x3, Cranial nerves II-XII grossly intact, Normal Strength, Normal Sensation Psychological: Normal affect, Normal Mood Diagnostic/Tx/Re-eval - Medical Decision Making This is a nontoxic-appearing healthy young female patient with a viral constellation of symptoms. She has stable vital signs, is not tachypneic significantly tachycardic hypoxic or hypotensive. I do not feel that work-up is indicated. Patient was treated with Zofran and Naprosyn in the emergency department will be discharged with a course of the same. Coronavirus test was sent. Patient was discharged in stable condition. ED Disposition - Plan for ED Patient: Disposition: Home or Assisted Living Diagnosis: Viral illness Instructions: ED Viral Syndrome Prescriptions: Naproxen [Naprosyn] 500 mg PO BID PRN #20 tab Prescription Printed Ondansetron [Zofran Odt] 4 mg PO Q8H PRN PRN #10 tab PRN Reason: Nausea Prescription Printed Referrals: Panda Stock MD [Primary Care Provider] - 1 Week if not improving
[2020-08-31 19:57] VITALS: BP 124/66; PULSE 74; RESP 15; O2SAT 98
[2020-08-31] MEDS: Ondansetron ODT 4 MG Tablet PO (19:57)
[2020-08-31] MEDS: Naproxen 500 MG Tablet PO (19:57)
--- NOTE | 2020-09-01 09:14 | ED.RN ---
RX called to the [facility]. Pt aware and will pick them up in 20 min
== END 2020-08-31 19:58 | disposition home or self-care (01) ==
LOC: ED 19:50
PROVIDERS: Emergency Provider Emergency Medicine; PCP Family Medicine
DX: U07.1 COVID-19 (principal); F32.9 Major depressive disorder, single episode, unspecified
CPT/HCPCS: 87635; 99283; U0002; U0003

== ENCOUNTER → 2020-09-12 14:46 | Outpatient (CLI) | payer OTHER, SELFPAY ==
[2020-08-31 18:41] VITALS: BMI 38.5
--- NOTE | 2020-09-12 14:48 | RAD_ITS ---
STUDY: X-RAY CHEST REASON FOR EXAM: Female, 25 years old. PT RECENTLY HAD COVID, CONTINUED CHEST PAIN TECHNIQUE: PA and lateral views of the chest. COMPARISON: Comparison is made with prior study dated 09/06/2019. FINDINGS: The lungs are clear and expanded. There is no demonstrated pleural abnormality. Normal size heart. Normal mediastinum and oswald. Normal visualized pulmonary arteries. Normal visualized aortic arch and descending thoracic aorta. Normal visualized thoracic spine. Normal visualized ribs, clavicles, and shoulders. There is no demonstrated abnormality of the visualized soft tissue structures of the upper abdomen. RAD/Chest PA and Lateral IMPRESSION: Normal x-ray examination of the chest. Electronically Signed: Alexandre Lozano, at 15:17 EST , Service support ,
== END ==
PROVIDERS: PCP Family Medicine; Referring Provider Family Medicine; Visit Provider Family Medicine
DX: U07.1 COVID-19 (principal)
CPT/HCPCS: 71046

== ENCOUNTER → 2021-01-01 13:49 | Outpatient (CLI) | payer OTHER, SELFPAY ==
[2020-12-25 15:28] VITALS: BMI 41.5
--- NOTE | 2021-01-01 13:50 | ECHOD_ITS ---
Reason For Study: MURMUR Procedure This was a 2D Doppler, Color Flow transthoracic echocardiogram. The study was technically difficult. Exam performed in department. Left Ventricle Normal LV size. Left ventricular systolic function is normal. The estimated ejection fraction is 65 %. No evidence for diastolic dysfunction. No regional wall motion abnormalities noted. Right Ventricle Normal RV size. Normal systolic function. Atria Normal left atrium. Normal right atrium. No doppler evidence for ASD. Mitral Valve There is no mitral annular calcification. Normal mitral valve. Trivial mitral valve insufficiency. Tricuspid Valve Normal tricuspid valve. Trivial tricuspid valve insufficiency. Right ventricular systolic pressure estimated to be 18 mmHg. Aortic Valve Trisinus/trileaflet aortic valve. Normal aortic valve. Pulmonic Valve The pulmonic valve is not well visualized, however, based upon the 2D echocardiographic and spectral Doppler findings there appears to be a pulmonic valve peak gradient of approximately 9 mmHg compatible with mild pulmonic valve stenosis. Mild (1+) pulmonic valve insufficiency. Great Vessels Normal sized aortic root. Pericardium/Pleural No pericardial effusion. MMode/2D Measurements & Calculations LVIDd: 4.2 cm IVSd: 0.74 cm Ao root diam: 2.7 cm LVIDs: 2.8 cm LVPWd: 0.79 cm RVDd: 3.2 cm FS: 34.9 % LAV(MOD-bp): 37.4 ml LVAd ap4: 31.7 cm2 SV(MOD-sp4): 59.0 ml LAV(MOD-bp) Indexed: 19.0 ml/m2 EDV(MOD-sp4): 95.6 ml LAV(MOD-sp2): 35.8 ml EDV(sp4-el): 97.9 ml LAV(MOD-sp4): 36.9 ml LVAs ap4: 18.0 cm2 ESV(MOD-sp4): 36.6 ml ESV(sp4-el): 37.7 ml EF(MOD-sp4): 61.7 % EF(sp4-el): 61.5 % SV(sp4-el): 60.2 ml LA A4 area: 15.2 cm2 LA dimension(2D): 3.0 cm RA A4 area: 11.2 cm2 Time Measurements MV dec time: 0.29 sec Doppler Measurements & Calculations MV E max bill: 111.8 cm/sec Lat Peak E' Bill: 19.3 cm/sec Med Peak E' Bill: 16.2 cm/sec MV A max bill: 55.2 cm/sec E/E' lat: 5.8 E/E' med: 6.9 MV E/A: 2.0 Ao V2 max: 146.9 cm/sec LV V1 max: 137.3 cm/sec PA V2 max: 150.5 cm/sec Ao max P.6 mmHg LV V1 max P.5 mmHg PA V2 mean: 101.9 cm/sec PA V2 VTI: 34.9 cm PI end-d bill: 85.7 cm/sec TR max bill: 196.3 cm/sec TR max P.4 mmHg Interpretation Summary The study was technically difficult. Left ventricular systolic function is normal. The estimated ejection fraction is 65 %. Trivial mitral valve insufficiency. Trivial tricuspid valve insufficiency. The pulmonic valve is not well visualized, however, based upon the 2D echocardiographic and spectral Doppler findings there appears to be a pulmonic valve peak gradient of approximately 9 mmHg compatible with mild pulmonic valve stenosis. Mild (1+) pulmonic valve insufficiency. Right ventricular systolic pressure estimated to be 18 mmHg. No evidence for diastolic dysfunction. Ordering Physician: Jonh Liz Referring Physician: GENESIS ROMO Performed By: Betty Duncan RDCS
== END ==
PROVIDERS: PCP Family Medicine; Referring Provider Internal Medicine Cardiovascular Disease; Visit Provider Internal Medicine Cardiovascular Disease
DX: Q22.1 Congenital pulmonary valve stenosis (principal); R01.1 Cardiac murmur, unspecified; R06.02 Shortness of breath; R53.83 Other fatigue; U07.1 COVID-19
CPT/HCPCS: 93306

== ENCOUNTER → 2021-01-07 15:50 | Outpatient (CLI) | payer OTHER, SELFPAY ==
[2020-12-25 15:28] VITALS: BMI 41.5
--- NOTE | 2021-01-07 15:52 | RAD_ITS ---
STUDY: X-RAY - LEFT WRIST REASON FOR EXAM: Female, 25 years old. left wrist pain and a lump since yesterday -- no injury TECHNIQUE: 3 view(s) of the wrist were obtained. COMPARISON: None. FINDINGS: No acute fracture, dislocation or osseous destruction. No significant joint space narrowing. No significant productive changes. No significant soft tissue swelling. RAD/Wrist min 3 Views IMPRESSION: Left wrist intact Electronically Signed: Hamlet Jean DO at 9:13 EDT Tel , Service support ,
== END ==
PROVIDERS: PCP Family Medicine; Referring Provider Family Medicine; Visit Provider Family Medicine
DX: M25.539 Pain in unspecified wrist (principal)
CPT/HCPCS: 73110

== ENCOUNTER 2021-03-14 07:16 | Emergency (ER) | payer OTHER, SELFPAY ==
[2020-12-25 15:28] VITALS: BMI 41.5
[2021-03-14 07:17] VITALS: BP 139/75; PULSE 82; RESP 18; TEMP 36.8; O2SAT 99; BMI 35.4
[2021-03-14 07:24] VITALS: BP 139/75; PULSE 82; RESP 18; TEMP 36.8; O2SAT 99
--- NOTE | 2021-03-14 07:31 | EX.ED.VIS.UR ---
HPI HPI - URI History of Present Illness Chief Complaint: Sore Throat Narrative Narrative: 26-year-old female presenting with sore throat. She states that she first started to feel mildly unwell last evening. Over the course of the night she states she woke up with sweating. She did not have a thermometer but did take Tylenol. The Tylenol did help however her throat feels swollen and she has painful swallowing. ROS ROS ED Constitutional Constitutional ED: Reports sweats; Denies chills or fever(s) Eyes Eyes: Denies blurry vision or change in vision ENT ENT ED: Reports sore throat; Denies ear pain or rhinorrhea Cardiovascular Cardiovascular: Denies chest pain, palpitations or racing heartbeat Respiratory/Chest Respiratory/Chest: Denies cough, dyspnea or sputum Gastrointestinal Gastrointestinal: Denies abdominal pain, constipation, diarrhea or vomiting Genitourinary Genitourinary ED: Denies dysuria, hematuria or urinary frequency Musculoskeletal Musculoskeletal: Denies arthralgias, myalgias or neck pain Integumentary Denies abscess, Abrasions or rash Neurologic Neurologic: Denies headache(s), paresthesias or weakness Psychiatric Psychiatric: Denies anxiety, depression, suicidal ideation or suicidal thoughts Endocrine Endocrinology: Denies polydipsia or polyuria [facility] Medical History Anxiety Appendicitis Chest pain Chronic neck and back pain Congenital pulmonic valve stenosis COVID-19 Depression Family history of DVT Fatigue Headaches, cluster Heart murmur Knee pain Pancreatitis Seasonal allergies SOB (shortness of breath) Home Medications bupropion HCl 100 mg tablet,12 hr sustained-release 100 mg PO DAILY 05/22/20 [History Last Taken Unknown] norgestimate 0.25 mg-ethinyl estradiol 35 mcg tablet 1 tab PO QDAY #84 tab 06/18/20 [Rx Last Taken Unknown] naproxen 500 mg PO BID PRN #20 tab 08/31/20 [Rx Last Taken Unknown] cholecalciferol (vitamin D3) 25 mcg (1,000 unit) tablet 25 mcg PO DAILY 12/25/20 [History Last Taken Unknown] fluticasone propionate 50 mcg/actuation nasal spray,suspension 1 spray INTRANASAL DAILY 12/25/20 [History Last Taken Unknown] amoxicillin-pot clavulanate [Augmentin] 1 tab PO Q12H #19 tab 03/14/21 [Rx Last Taken Unknown] naltrexone-bupropion [Contrave] 2 tab PO BID 03/14/21 [History Last Taken Unknown] Allergy/AdvReac Type Severity Reaction Status Date / Time adhesive tape Allergy Intermediate abrasion Verified 03/14/21 07:19 hydrocodone [From Vicodin] AdvReac Other Verified 03/14/21 07:19 Family History Father Hypertension Grandfather Hypertension Diabetes Myocardial infarction x2 CAD (coronary artery disease) Grandmother Kidney failure Liver cirrhosis Heart disease Other Arthritis Asthma Bleeding disorder CVA (cerebral vascular accident) Cancer Gout Sudden cardiac Thyroid disorder Surgical History H/O lateral meniscus repair of left knee Hx of cholecystectomy Hx of right breast biopsy Social History Smoking Status: Never smoker alcohol intake: current alcohol intake frequency: holidays/special occasions only details: social substance use type: does not use caffeine: Yes what type of physical activity do you participate in: walking and running frequency: 5-6 times per week seatbelt use: always do you feel safe at home: Yes additional social history: 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 Physical Exam Const Vital Signs: 03/14/21 07:17 03/14/21 07:24 Temperature 98.2 F 98.2 F Temperature Source Oral Oral Pulse Rate 82 82 Respiratory Rate 18 18 Blood Pressure 139/75 H 139/75 H Blood Pressure Mean 96 96 Pulse Ox 99 99 Oxygen Delivery Method Room Air Room Air Positive well nourished General Appearance ED: NAD; Negative for pallor HEENT Reports normocephalic, head/scalp atraumatic and moist mucous membranes Throat: tonsils abnormal bilateral erythema and exudates Eyes PERRL and EOMs intact bilaterally Neck supple General: lymphadenopathy Lymph Lymphatic: lymphadenopathy Lymphadenopathy Laterality: bilateral Chest Wall inspection of chest normal and palpation of chest normal Resp normal respiratory effort and clear to auscultation bilaterally Auscultation: Negative for rales, rhonchi or wheezes Cardio regular rate and regular rhythm Rate: regular rate Rhythm: regular rhythm GI normal to inspection, nondistended, normoactive bowel sounds Narrative: Deferred Extremity General Extremety ED: Yes edema General Extremity: edema Neuro oriented x3 and CN's II-XII intact bilaterally Sensorium / Orientation: alert Motor Exam: strength 5/5 throughout Psych mental status grossly normal Attitude: No agitated Skin no rashes or lesions noted and no wounds General Skin Exam: Negative for jaundice or pallor MDM MDM MDM Narrative Medical decision making narrative: 26-year-old female presenting with sore throat, anterior lymphadenopathy, erythematous swollen tonsils with exudates. Patient was offered to treat clinically however she did want to be tested for strep for work purposes. Rapid strep is positive. She was given 10 mg of Decadron in the ED. She is given a work note for the next couple of days. She was given her first dose of Augmentin in the ED. She is given a prescription for this for home. She will alternate Tylenol and ibuprofen for pain and fever. Patient can return precautions. She stable discharge at this time. Impression: 1. Strep pharyngitis Lab Data Attestation: I reviewed the patient's lab results. Discharge Plan Triage Chief Complaint: Sore Throat ED Provider: Kiran Sanchez Dx/Rx/DC Orders Instructions: ED Pharyngitis, Strep (Confirmed) Prescriptions: New amoxicillin-pot clavulanate [Augmentin] 875-125 mg tablet 1 tab PO Q12H Qty: 19 RF: 0 No Action fluticasone propionate [Flonase Allergy Relief] 50 mcg/actuation spray,suspension 1 spray INTRANASAL DAILY RF: 0 cholecalciferol (vitamin D3) 25 mcg (1,000 unit) tablet 25 mcg PO DAILY RF: 0 bupropion HCl [Wellbutrin SR] 100 mg tablet sustained-release 12 hr 100 mg PO DAILY RF: 0 norgestimate-ethinyl estradiol [Sprintec (28)] 0.25-35 mg-mcg tablet 1 tab PO QDAY Qty: 84 RF: 4 naproxen 500 MG tablet 500 mg PO BID PRN Qty: 20 RF: 0 Contrave 8-90 mg Tablet Extended Release 2 tab PO BID RF: 0 Primary Care Provider: Panda Stock Referrals: Panda Stock MD [Primary Care Provider] -
[2021-03-14] MEDS: dexAMETHasone 10 MG/ML Vial PO.IVFORM (07:39)
[2021-03-14] MEDS: Amox/Clavulanate 875 MG Tablet PO (08:10)
[2021-03-14 08:11] VITALS: PULSE 84; RESP 16; O2SAT 99
== END 2021-03-14 08:13 | disposition home or self-care (01) ==
PROVIDERS: Emergency Provider Student in an Organized Health Care Education/Training Program; PCP Family Medicine
DX: J02.0 Streptococcal pharyngitis (principal); Z86.16 Personal history of COVID-19
CPT/HCPCS: 87077; 87880; 99283

== ENCOUNTER → 2021-04-22 15:39 | Outpatient (CLI) | payer OTHER, SELFPAY ==
[2021-04-22 18:26] LABS: Absolute Lymphocyte Count 2.18 X10^3/uL (0.83-4.51); Absolute Neutrophil Count 4.4 X10^3/uL (2.0-7.7); Basophil# 0.03 X10^3/uL; Basophil% 0.4 % (0-1); Eosinophil# 0.06 X10^3/uL; Eosinophils% 0.8 % (0-5); Hematocrit 38.1 % (37-47); Hemoglobin 12.3 g/dL (12.0-15.0); Lymphocyte # 2.18 X10^3/ul (0.83-4.51); Lymphocyte % 30.2 % (19-41); Mean Corp Hgb Conc 32.3 g/dL (32-36); Mean Corpuscular Hgb 28.5 pg (27.0-32.0); Mean Corpuscular Volume 88.2 fL (81-99); Mean Platelet Vol. 11.4 fl (6.2-12.0); Monocyte# 0.54 X10^3/uL; Monocyte% 7.5 % (0-10); NRBC Flagged by Analyzer 0 % (0-5); Neutrophil # 4.38 X10^3/uL (2.7-7.7); Neutrophil % 60.8 % (47-70); Platelet Count 324 K/mm3 (150-450); RBC Distribution Width CV 13.6 % (11.6-14.6); RBC Distribution Width SD 44.1 fl (35.1-43.9); Red Blood Count 4.32 M/mm3 (4.2-5.4); White Blood Count 7.2 K/mm3 (4.4-11.0)
[2021-04-22 18:33] LABS: ALB/GLOB Ratio 0.8 RATIO (0.9-2.4); AST(SGOT) 20 U/L (15-37); Alanine Aminotransfer ALT/SGPT 25 U/L (13-56); Albumin, Serum 3.3 g/dL (3.2-5.0); Alkaline Phosphatase 55 U/L (45-117); Anion Gap 7 (5-15); BUN 14 mg/dL (7-18); BUN/Creat Ratio 19.3 RATIO (10-20); Calcium,Total 8.7 mg/dL (8.5-10.1); Chloride 103 mmol/L (98-107); Creatinine, Serum 0.72 mg/dL (0.55-1.02); EST Glomerular Filtration Rate 104 mL/min (>60); Est Glom Filt Rate - Afr Amer 126 mL/min (>60); Globulin 4.1 g/dL (2.2-4.2); Glucose 89 mg/dL (74-106); Potassium 3.9 mmol/L (3.5-5.1); Protein, Total 7.4 g/dL (6.4-8.2); Sodium Level 137 mmol/L (136-145)
[2021-04-22 18:42] LABS: Erythrocyte Sedimentation Rate 18 mm/hr (0-30)
[2021-04-25 14:01] LABS: EBV Early Antigen IgG <9.0 U/mL (0.0-8.9)
[2021-04-26 14:45] LABS: EBV Acute VCA IgM < 36.0 U/mL (0.0-35.9)
== END ==
PROVIDERS: PCP Family Medicine; Visit Provider Family Medicine
DX: J02.9 Acute pharyngitis, unspecified (principal)
CPT/HCPCS: 36415; 80053; 85025; 85652; 86663; 86665; 87070; 87077

== ENCOUNTER → 2021-05-09 | Outpatient (CLI) | payer OTHER, SELFPAY ==
[2021-05-09 14:47] VITALS: BMI 35.4
[2021-05-09 18:23] LABS: Chlamydia Trachomatis by PCR Negative (Negative); Neisserai gonorrhoeae by PCR Negative (Negative); Probe Check PASS; Sample Adequacy Control PASS; Specimen Processing Control PASS
== END | disposition home or self-care (01) ==
PROVIDERS: PCP Family Medicine; Visit Provider Nurse Practitioner Women's Health
DX: N89.8 Other specified noninflammatory disorders of vagina (principal)
CPT/HCPCS: 87070; 87205; 87491; 87591

== ENCOUNTER → 2021-06-10 10:41 | Outpatient (CLI) | payer OTHER, SELFPAY ==
[2021-06-06 15:24] VITALS: BMI 35.4
== END ==
PROVIDERS: PCP Family Medicine; Visit Provider Family Medicine
DX: R69 Illness, unspecified (principal)

== ENCOUNTER → 2021-07-12 07:38 | Outpatient (CLI) | payer OTHER, SELFPAY ==
--- NOTE | 2021-07-12 08:00 | RAD_ITS ---
STUDY: X-RAY - ESOPHAGUS (BARIUM SWALLOW) WITH FLUOROSCOPY REASON FOR EXAM: Female, 26 years old. GERD TECHNIQUE: 14 view(s) of the esophagus were obtained following swallowing of barium. FLUOROSCOPY TIME (if supplied): (30 seconds) minutes/seconds COMPARISON: None. FINDINGS: There is no demonstrated esophageal foreign body. There is no demonstrated stricture or mucosal abnormality. Normal gastroesophageal junction, without a demonstrated hiatal hernia. The patient ingested a 12 mm tablet of barium without any difficulty. Normal visualized aortic arch and descending thoracic aorta. Normal visualized pulmonary parenchyma. Normal visualized osseous structures of the thorax. RAD/Esophagus Dual Contrast IMPRESSION: Normal plain film x-ray examination (barium swallow) of the esophagus. Electronically Signed: Alexandre Lozano MD at 10:53 EDT , Service support ,
== END ==
PROVIDERS: PCP Family Medicine; Visit Provider Otolaryngology
DX: K21.9 Gastro-esophageal reflux disease without esophagitis (principal)
CPT/HCPCS: 74221

== ENCOUNTER 2021-11-16 10:04 | Outpatient (CLI) | payer OTHER, SELFPAY ==
[2021-11-16 10:19] VITALS: BP 130/80; PULSE 83; RESP 16; TEMP 36.8; O2SAT 100; BMI 35.6
[2021-11-16] MEDS: 0.9% Saline Lock 10 ML Syringe IV (10:20)
[2021-11-16 10:59] VITALS: BP 106/68; PULSE 76; RESP 16; TEMP 36.9; O2SAT 100
[2021-11-16 12:03] VITALS: BP 115/67; PULSE 67; RESP 16; TEMP 36.7; O2SAT 100
== END 2021-11-16 23:59 | disposition home or self-care (01) ==
LOC: MS3OUT 10:05 → MS3 10:06
PROVIDERS: PCP Family Medicine; Referring Provider Nurse Practitioner Adult Health; Visit Provider Nurse Practitioner Adult Health
DX: Z23 Encounter for immunization (principal); U07.1 COVID-19
CPT/HCPCS: J7050; M0245; Q0245; A4216

== ENCOUNTER 2021-11-21 07:16 | Emergency (ER) | payer OTHER, SELFPAY ==
[2021-11-21 07:18] VITALS: BP 124/83; PULSE 94; RESP 17; TEMP 35.9; O2SAT 100; BMI 40.7
[2021-11-21 07:43] VITALS: O2SAT 98
--- NOTE | 2021-11-21 07:43 | EKG12_ITS ---
Test Reason : CHEST PAIN Blood Pressure : / mmHG Vent. Rate : 085 BPM Atrial Rate : 085 BPM P-R Int : 122 ms QRS Dur : 074 ms QT Int : 364 ms P-R-T Axes : 051 046 027 degrees QTc Int : 433 ms Normal sinus rhythm Normal ECG Confirmed by ONEL PERSAUD, MEG ([id number]), story editor PERLA RAND ([id number]) on 11/25/2021 10:58:31 AM Referred By: VINEET Confirmed By:MEG SYKES MD
[2021-11-21] MEDS: Aspirin 81 MG TAB.CHEW 324 MG PO (07:51)
--- NOTE | 2021-11-21 07:51 | EX.ED.DYSGE1 ---
HPI History of Present Illness Chief Complaint: Cough Informant: patient Onset/Context/Timing Onset: Today Context: Sudden Onset Timing: Continuous Quality: Sharp Location: Substernal Worsened by: Bending forward Relieved by: Nothing Narrative Narrative: Patient presents with chest pain that began today. Patient states it began when she woke up today. Patient states it is over the substernal area. Patient states it is worse whenever she bends forward. Patient describes her pain is sharp. Patient states her pain has been constant throughout the day today. Patient states she is on day 11 of her COVID-19 symptoms. Patient admits to a cough. Patient denies any shortness of breath. Patient states she feels her heart racing at times. Patient denies any shortness of breath. [facility] Medical History Acute sinusitis, unspecified Anxiety Appendicitis Chest pain Chronic neck and back pain Congenital pulmonic valve stenosis COVID-19 Depression Family history of DVT Fatigue Headaches, cluster Heart murmur Knee pain Pancreatitis Seasonal allergies SOB (shortness of breath) Home Medications bupropion HCl 100 mg tablet,12 hr sustained-release 100 mg PO DAILY 05/22/20 [History Last Taken Unknown] desogestrel 0.15 mg-ethinyl estradiol 0.03 mg tablet 1 tab PO QDAY #84 tab 06/06/21 [Rx Last Taken Unknown] fluoxetine 10 mg capsule 10 mg PO DAILY 06/06/21 [History Last Taken Unknown] lansoprazole 15 mg capsule,delayed release 15 mg PO DAILY PRN 06/06/21 [History Last Taken Unknown] Allergy/AdvReac Type Severity Reaction Status Date / Time adhesive tape Allergy Intermediate abrasion Verified 11/21/21 07:17 hydrocodone [From Vicodin] AdvReac Other Verified 11/21/21 07:17 Family History Father Hypertension Grandfather Hypertension Diabetes Myocardial infarction x2 CAD (coronary artery disease) Grandmother Kidney failure Liver cirrhosis Heart disease Other Arthritis Asthma Bleeding disorder CVA (cerebral vascular accident) Cancer Gout Sudden cardiac Thyroid disorder Surgical History H/O lateral meniscus repair of left knee Hx of cholecystectomy Hx of right breast biopsy Social History Smoking Status: Never smoker alcohol intake: current alcohol intake frequency: holidays/special occasions only details: social substance use type: does not use caffeine: Yes what type of physical activity do you participate in: walking and running frequency: 5-6 times per week seatbelt use: always do you feel safe at home: Yes additional social history: Works at [employer] HeartThis ROS ROS ED Constitutional Constitutional ED: Reports chills and subjective; Denies fever(s) Eyes Eyes: Denies blurry vision or change in vision ENT ENT ED: Reports rhinorrhea; Denies sore throat Cardiovascular Cardiovascular: Reports chest pain, palpitations and racing heartbeat Respiratory/Chest Respiratory/Chest: Reports cough; Denies dyspnea Gastrointestinal Gastrointestinal: Denies abdominal pain, nausea or vomiting Genitourinary Genitourinary ED: Denies dysuria or hematuria Musculoskeletal Musculoskeletal: Reports back pain; Denies neck pain Integumentary Denies abscess or rash Neurologic Neurologic: Reports headache(s); Denies weakness Allergic/Immunologic Allergic/Immunologic ED: Denies mouth swelling or urticaria EXAM Physical Exam Const Vital Signs: 11/21/21 07:18 11/21/21 07:43 11/21/21 08:24 Temperature 96.7 F L Temperature Source Temporal Pulse Rate 94 79 Respiratory Rate 17 18 Respiratory Effort Normal Respiratory Depth Normal Respiratory Pattern Normal Blood Pressure 124/83 H 112/66 Blood Pressure Mean 96 81 Pulse Ox 100 100 Oxygen Delivery Method Room Air Room Air Room Air Positive well nourished and well developed General Appearance ED: well developed HEENT Reports moist mucous membranes Neck supple and no JVD Resp normal respiratory effort and clear to auscultation bilaterally Cardio regular rate and regular rhythm GI normal to inspection, nondistended, normoactive bowel sounds and non-tender Palpation: soft Extremity normal to inspection General Extremety ED: Negative for edema or tenderness General Extremity: Negative for edema Neuro oriented x3, CN's II-XII intact bilaterally and no sensory deficits noted Sensorium / Orientation: alert Motor Exam: strength 5/5 throughout Psych mental status grossly normal Skin no rashes or lesions noted MDM MDM MDM Narrative Medical decision making narrative: Patient was given aspirin here. EKG was obtained. On my interpretation, it showed a normal sinus rhythm with a rate of 85. UT interval, QRS interval, and QTc intervals were all normal. [place] was normal. There are no acute ST or T wave changes. CBC and basic metabolic profile were obtained and were within normal limits. Serum hCG was obtained and was negative. High-sensitivity troponin was normal. D-dimer was elevated at 0.64. Because of this, CTA of the chest was obtained. There is no evidence of pulmonary embolism. There is no acute cardiopulmonary process noted. This was interpreted by the radiologist and reviewed by myself. Patient was advised of her findings. Patient was instructed to follow-up with her primary care physician in 5 to 7 days. Patient understood and was agreeable with the plan. All questions were answered. Lab Data Attestation: I reviewed the patient's lab results. Labs: Laboratory Results - last 24 hr 11/21/21 11/21/21 11/21/21 07:35 07:35 07:35 WBC 8.5 RBC 4.72 Hgb 13.2 Hct 40.0 MCV 84.7 MCH 28.0 MCHC 33.0 RDW Std Deviation 38.8 RDW Coeff of Amber 12.6 Plt Count 331 MPV 10.8 Immature Gran % (Auto) 0.400 Neut % (Auto) 61.4 Lymph % (Auto) 31.9 Lipscomb % (Auto) 5.2 Eos % (Auto) 0.9 Baso % (Auto) 0.2 Absolute Neuts (auto) 5.2 Absolute Lymphs (auto) 2.70 Nucleated RBC % 0 D-Dimer Quant (PE/DVT) 0.64 H* Sodium 137 Potassium 3.7 Chloride 105 Carbon Dioxide 27.0 Anion Gap 5 BUN 11 Creatinine 0.68 Estim Creat Clear Calc 100.03 Est GFR (MDRD) Af Amer 134 Est GFR (MDRD) Non-Af 110 BUN/Creatinine Ratio 16.1 Glucose 106 Calcium 8.7 Troponin I High Sens < 3 L Serum , Qual 11/21/21 07:47 WBC RBC Hgb Hct MCV MCH MCHC RDW Std Deviation RDW Coeff of Amber Plt Count MPV Immature Gran % (Auto) Neut % (Auto) Lymph % (Auto) Lipscomb % (Auto) Eos % (Auto) Baso % (Auto) Absolute Neuts (auto) Absolute Lymphs (auto) Nucleated RBC % D-Dimer Quant (PE/DVT) Sodium Potassium Chloride Carbon Dioxide Anion Gap BUN Creatinine Estim Creat Clear Calc Est GFR (MDRD) Af Amer Est GFR (MDRD) Non-Af BUN/Creatinine Ratio Glucose Calcium Troponin I High Sens Serum , Qual NEGATIVE Radiography CTA PE Study: No Evidence of PE and No Evidence of Dissection Diagnostic Testing: Clinical Impression(s) from Imaging Studies Chest CTA 11/21/21 08:11 IMPRESSION: No evidence for pulmonary embolism. Individualized dose optimization techniques were used for this CT. at 0939 Reported and signed by: Calli Chahal MD Electronically Signed: Calli Chahal MD at 9:38 EST Reading Location ID and State: [facility] / [place] Tel , Service support , EKG Initial EKG: Attestation: I personally reviewed and interpreted this EKG as follows: Interpretation: Sinus Rhythm (85) and No Acute Injury Pattern Prior EKG tracings: available for review Prior: Unchanged (09/06/2019) Discharge Plan Triage Chief Complaint: Cough ED Provider: [place] Dx/Rx/DC Orders Clinical Impression: COVID-19, Chest pain Instructions: Coronavirus Disease 2019 (COVID-19): Overview Prescriptions: No Action bupropion HCl [Wellbutrin SR] 100 mg tablet sustained-release 12 hr 100 mg PO DAILY RF: 0 lansoprazole [Prevacid] 15 mg capsule,delayed release(DR/EC) 15 mg PO DAILY PRN (Reason: heart burn) RF: 0 fluoxetine [Prozac] 10 mg capsule 10 mg PO DAILY RF: 0 desogestrel-ethinyl estradiol [Apri] 0.15-0.03 mg tablet 1 tab PO QDAY Qty: 84 RF: 4 Primary Care Provider: Panda Stock Referrals: Panda Stock MD [Primary Care Provider] - 3-5 Days Disposition Disposition: Home, Self Care
[2021-11-21 07:52] LABS: Absolute Neutrophil Count 5.2 X10^3/uL (2.0-7.7); Basophil# 0.02 X10^3/uL; Basophil% 0.2 % (0-1); Eosinophil# 0.08 X10^3/uL; Eosinophils% 0.9 % (0-5); Hemoglobin 13.2 g/dL (12.0-15.0); Lymphocyte % 31.9 % (19-41); Mean Corpuscular Volume 84.7 fL (81-99); Mean Platelet Vol. 10.8 fl (6.2-12.0); Monocyte# 0.44 X10^3/uL; Monocyte% 5.2 % (0-10); NRBC Flagged by Analyzer 0 % (0-5); Neutrophil % 61.4 % (47-70); Platelet Count 331 K/mm3 (150-450); RBC Distribution Width CV 12.6 % (11.6-14.6); RBC Distribution Width SD 38.8 fl (35.1-43.9); Red Blood Count 4.72 M/mm3 (4.2-5.4); White Blood Count 8.5 K/mm3 (4.4-11.0)
[2021-11-21 08:10] LABS: Anion Gap 5 (5-15); BUN 11 mg/dL (7-18); BUN/Creat Ratio 16.1 RATIO (10-20); Calcium,Total 8.7 mg/dL (8.5-10.1); Chloride 105 mmol/L (98-107); Creatinine, Serum 0.68 mg/dL (0.55-1.02); D-Dimer Quantitative (DVT/PE) 0.64 FEU/ug/m (0.27-0.49); EST Glomerular Filtration Rate 110 mL/min (>60); Est Glom Filt Rate - Afr Amer 134 mL/min (>60); Estimated Creatinine Clearance 100.03 ml/min; Glucose 106 mg/dL (74-106); Potassium 3.7 mmol/L (3.5-5.1); Sodium Level 137 mmol/L (136-145); Troponin-I HS < 3 pg/mL (3.0-54.0)
--- NOTE | 2021-11-21 08:11 | CT_ITS ---
HISTORY: Elevated D-dimer. TECHNIQUE: Helically acquired images of the chest following IV contrast as per pulmonary angiogram protocol with 2D and 3D reconstructions. A radiation dose optimization technique was used for this scan. IV Contrast dosage and agent: 100 mL [id number]. # of images incl. paperwork: [id number]. COMPARISON: 09/06/2019. FINDINGS: CENTRAL AIRWAYS: Patent. LUNGS: Stable 3 mm right middle lobe nodule. PLEURA: No pneumothorax or pleural effusion. PULMONARY ARTERIES: No filling defect. HEART/PERICARDIUM: Heart within normal limits in size. No significant pericardial effusion. AORTA/GREAT VESSELS: No aortic aneurysm or dissection flap. MEDIASTINUM/LUTHER: No enlarged lymph nodes. OSSEOUS STRUCTURES: Intact. UPPER ABDOMEN: Cholecystectomy. CT/CTA Chest W/WO Contrast IMPRESSION: No evidence for pulmonary embolism. Individualized dose optimization techniques were used for this CT. at 0939 Reported and signed by: Calli Chahal MD Electronically Signed: Calli Chahal MD at 9:38 EST ,
[2021-11-21 08:24] VITALS: BP 112/66; PULSE 79; RESP 18; O2SAT 100
[2021-11-21 08:29] LABS: Internal QC Validated? YES +Cl - CLEAR BKGD; Pregnancy, Serum, hCG Quali. NEGATIVE Negative
[2021-11-21 11:17] VITALS: BP 124/82; PULSE 60; RESP 14; TEMP 36.9; O2SAT 97
--- NOTE | 2021-11-22 13:25 | CASEMGMT ---
ANGELIKA NORRIS ED follow-up: ANGELIKA NORRIS placed call to patient's telephone number listed on demographics with no answer. Voicemail left with call back information requesting return call if any questions, concerns or needs. ANGELIKA Luevano CM
== END 2021-11-21 11:24 | disposition home or self-care (01) ==
PROVIDERS: Emergency Provider Emergency Medicine; PCP Family Medicine; Visit Provider Emergency Medicine
DX: U07.1 COVID-19 (principal); R07.9 Chest pain, unspecified; F41.9 Anxiety disorder, unspecified; Z87.19 Personal history of other diseases of the digestive system; G89.29 Other chronic pain; F32.A Depression, unspecified; Z79.899 Other long term (current) drug therapy
CPT/HCPCS: 71275; 80048; 84484; 84703; 85025; 85379; 93005; 99284; Q9967; A4216

== ENCOUNTER 2021-11-25 10:53 | Outpatient (CLI) | payer OTHER, SELFPAY ==
[2021-11-25 12:51] LABS: D-Dimer Quantitative (DVT/PE) 0.55 FEU/ug/m (0.27-0.49)
== END 2021-11-25 23:59 | disposition home or self-care (01) ==
LOC: MFPLAB 10:53
PROVIDERS: Nurse Practitioner Family; PCP Family Medicine; Visit Provider Family Medicine
DX: R79.89 Other specified abnormal findings of blood chemistry (principal)
CPT/HCPCS: 36415; 85379

== ENCOUNTER → 2022-03-06 | Outpatient (CLI) | payer OTHER, SELFPAY ==
[2022-03-06 15:28] LABS: Hematocrit 37.4 % (37-47); Hemoglobin 12.4 g/dL (12.0-15.0); Mean Corp Hgb Conc 33.2 g/dL (32-36); Mean Corpuscular Hgb 28.4 pg (27.0-32.0); Mean Corpuscular Volume 85.6 fL (81-99); Platelet Count 342 K/mm3 (150-450); RBC Distribution Width CV 13.3 % (11.6-14.6); RBC Distribution Width SD 41.5 fl (35.1-43.9); Red Blood Count 4.37 M/mm3 (4.2-5.4); White Blood Count 8.4 K/mm3 (4.4-11.0)
[2022-03-06 16:04] LABS: Erythrocyte Sedimentation Rate 26 mm/hr (0-30)
[2022-03-06 16:15] LABS: Anion Gap 8 (5-15); BUN 13 mg/dL (7-18); BUN/Creat Ratio 20.1 RATIO (10-20); Calcium,Total 8.9 mg/dL (8.5-10.1); Chloride 106 mmol/L (98-107); Creatinine, Serum 0.65 mg/dL (0.55-1.02); EST Glomerular Filtration Rate 118 mL/min (>60); Est Glom Filt Rate - Afr Amer 143 mL/min (>60); Glucose 113 mg/dL (74-106); Magnesium 2.1 mg/dL (1.6-2.6); Potassium 3.4 mmol/L (3.5-5.1); Sodium Level 139 mmol/L (136-145)
== END | disposition home or self-care (01) ==
LOC: MFPLAB 14:18
PROVIDERS: PCP Family Medicine; Visit Provider Family Medicine
DX: R25.2 Cramp and spasm (principal)
CPT/HCPCS: 36415; 80048; 83735; 85027; 85652

== ENCOUNTER → 2022-04-16 | Outpatient (CLI) | payer OTHER, SELFPAY ==
[2022-04-16 08:45] LABS: hCG Titer Quant., Serum < 1 mIU/mL (1-3)
== END | disposition home or self-care (01) ==
LOC: LAB 08:15
PROVIDERS: PCP Family Medicine; Visit Provider Nurse Practitioner Women's Health
DX: N91.2 Amenorrhea, unspecified (principal)
CPT/HCPCS: 36415; 84702

== ENCOUNTER → 2022-07-08 | Outpatient (CLI) | payer OTHER, SELFPAY ==
[2022-07-08 08:27] LABS: Vitamin B12 725 pg/mL (211-911); Vitamin D,25 Hydroxy 27.3 ng/mL
[2022-07-08 08:36] LABS: Ferritin 41 ng/mL (8-252); Iron 65 ug/dL (50-170); T4 Free Direct 1.03 ng/dL (0.76-1.46); Thyroid Stim Hormone (TSH) 2.03 uIU/mL (0.358-3.74)
== END | disposition home or self-care (01) ==
LOC: LAB 07:39
PROVIDERS: PCP Family Medicine; Visit Provider Family Medicine
DX: R53.83 Other fatigue (principal)
CPT/HCPCS: 36415; 82306; 82533; 82607; 82728; 83540; 84439; 84443

== ENCOUNTER → 2022-07-30 | Outpatient (CLI) | payer OTHER, SELFPAY ==
[2022-07-30 06:37] LABS: Prolactin 43.7 ng/mL
[2022-08-02 10:29] LABS: Testosterone Free 1.2 pg/mL (0.0-4.2)
== END | disposition home or self-care (01) ==
LOC: LAB 07-31 09:39
PROVIDERS: PCP Family Medicine; Visit Provider Nurse Practitioner Women's Health
DX: N97.0 Female infertility associated with anovulation (principal)
CPT/HCPCS: 36415; 82627; 84146; 84402; 82626

== ENCOUNTER → 2022-08-19 | Outpatient (CLI) | payer OTHER, SELFPAY ==
--- NOTE | 2022-08-19 15:14 | US_ITS ---
STUDY: ULTRASOUND OF THE FEMALE PELVIS - COMPLETE REASON FOR EXAM: Female, 27 years old. ABN MENSES LMP: TECHNIQUE: Standard TECHNICAL QUALITY: Adequate. COMPARISON: None. FINDINGS: The uterus is anteverted and is in a midline position. The uterus measures 6.8 x 4.1 x 2.2 cm. Normal uterine cervix. The endometrium measures 10.3 mm in thickness, and is . There is no demonstrated endometrial mass. There is no demonstrated myometrial mass. I.U.D. - The patient does not have an I.U.D. The right ovary is visualized. The right ovary measures 3.6 x 2.9 x 2.3 cm. Simple cyst 2.6 x 2.4 x 1.6 mm There is no visualized right adnexal mass or complex lesion. There is normal arterial and normal venous vascularity. The left ovary is visualized. The left ovary measures 3.8 x 3.2 x 2.9 cm. 2.3 x 2.3 x 1.8 cm simple cyst. There is no visualized left adnexal mass or complex lesion. There is normal arterial and normal venous vascularity. There is no fluid in the cul-de-sac. The pre void volume of the bladder was ml. The post void volume of the bladder was ml. Polycystic ovary disease: No. US/Pelvic (Non ) IMPRESSION: Single right and single left simple cysts of the ovary detailed above. Endometrial thickness 10.3 mm. Correlation with discontinuation of oral contraceptives one month ago advised. Electronically Signed: Froylan Layne MD, QUIANA at 16:49 EDT ,
== END | disposition home or self-care (01) ==
LOC: US 15:12
PROVIDERS: PCP Family Medicine; Referring Provider Obstetrics & Gynecology; Visit Provider Obstetrics & Gynecology
DX: N83.292 Other ovarian cyst, left side (principal); N83.291 Other ovarian cyst, right side
CPT/HCPCS: 76856

== ENCOUNTER → 2022-08-25 | Outpatient (CLI) | payer OTHER, SELFPAY ==
[2022-08-25 05:57] LABS: Prolactin 15.5 ng/mL
== END | disposition home or self-care (01) ==
PROVIDERS: PCP Family Medicine; Visit Provider Nurse Practitioner Women's Health
DX: N93.9 Abnormal uterine and vaginal bleeding, unspecified (principal)
CPT/HCPCS: 36415; 84146; 87070; 87205

== ENCOUNTER → 2022-09-23 | Outpatient (CLI) | payer OTHER, SELFPAY ==
[2022-09-23 08:18] LABS: Progesterone Level 2.87 ng/mL (See Comment)
== END | disposition home or self-care (01) ==
LOC: LAB 06:53
PROVIDERS: PCP Family Medicine; Referring Provider Nurse Practitioner Women's Health; Visit Provider Nurse Practitioner Women's Health
DX: Z31.41 Encounter for fertility testing (principal); N93.0 Postcoital and contact bleeding
CPT/HCPCS: 36415; 84144

== ENCOUNTER 2022-09-30 06:27 | Emergency (ER) | payer OTHER, SELFPAY ==
[2022-09-30 06:29] VITALS: BP 142/81; PULSE 92; RESP 19; TEMP 37.1; O2SAT 97; BMI 41.0
--- NOTE | 2022-09-30 07:06 | RAD_ITS ---
EXAM: XR CHEST, 1 VIEW CLINICAL INDICATION: cough TECHNIQUE: Frontal view of the chest. This report was created using [employer] report generation technology. COMPARISON: XR Chest dated 09/12/2020 FINDINGS: LUNGS AND PLEURAL SPACES: Normal. No consolidation or edema. No pneumothorax. No effusion. HEART: Normal heart size. MEDIASTINUM: No mediastinal or hilar mass. BONES/JOINTS: No acute abnormality. SOFT TISSUES: Normal. RAD/Chest 1 View (Portable) IMPRESSION: No acute cardiopulmonary abnormality. No interval change. Electronically Signed: Rakesh Canchola MD at 7:32 EST ,
--- NOTE | 2022-09-30 07:07 | EX.ED.DYSGE1 ---
HPI History of Present Illness Chief Complaint: General Illness Narrative Narrative: 27-year-old female past medical history of pulmonic valve stenosis presents with URI type symptoms that she has had since Thursday, over the last 4 days. 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 She states she has had fever and has been taking Tylenol until Thursday. It was as high as 102 ?F. She has not taken an antipyretic in the last 12 hours. She complains of cough with runny nose and sore throat/nasal congestion. She states she does not really have body aches. 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 She presents mainly because of her URI type symptoms and needing to know if she has COVID versus influenza, versus RSV. [facility] Medical History Anxiety Appendicitis Chest pain Chronic neck and back pain Congenital pulmonic valve stenosis COVID-19 COVID-19 Depression Family history of DVT Fatigue Fertility testing Headaches, cluster Heart murmur Knee pain Pancreatitis Seasonal allergies SOB (shortness of breath) Home Medications NK 09/10/22 [History Last Taken Unknown] Allergy/AdvReac Type Severity Reaction Status Date / Time adhesive tape Allergy Intermediate abrasion Verified 09/10/22 09:09 hydrocodone [From Vicodin] AdvReac Other Verified 09/10/22 09:09 flu vaccine Allergy Intermediate Swelling Uncoded 09/10/22 09:09 Family History Father Hypertension Myocardial infarction, Onset Age: 32 Grandfather Hypertension Diabetes Myocardial infarction, Onset Age: 53 x2 CAD (coronary artery disease) Grandmother Kidney failure Liver cirrhosis Heart disease Mother Fibrosis of liver Gluten intolerance Other Arthritis Asthma Bleeding disorder CVA (cerebral vascular accident) Cancer Gout Sudden cardiac Thyroid disorder Surgical History H/O lateral meniscus repair of left knee Hx of cholecystectomy Hx of right breast biopsy Social History Smoking Status: Never smoker alcohol intake: current alcohol intake frequency: holidays/special occasions only details: social substance use type: does not use caffeine: Yes what type of physical activity do you participate in: walking and running frequency: 5-6 times per week seatbelt use: always do you feel safe at home: Yes additional social history: Works at [employer] ROS ROS ED ROS Narrative Constitutional: Positive fever, no chills. HEENT: Positive sore throat. No neck pain. No loss of vision. Positive rhinorrhea with nasal congestion. Cardiovascular: Chest hurts especially with coughing/chest pain. No palpitations. No pedal edema. Respiratory: Essentially nonproductive cough, occasional shortness of breath. Abdominal: No abdominal pain. No nausea. No vomiting. Genitourinary: No dysuria. No hematuria. Musculoskeletal: No myalgias. No arthralgias. Neurologic: No headaches. No dizziness. No lightheadedness. Skin: No rash. No change in color. Psychiatric: No depression. No anxiety. EXAM Physical Exam Narrative Exam Narrative: Afebrile. Vital signs noted. Nontoxic-appearing. HEENT: Normocephalic. Atraumatic. PERRL, EOMI. Neck soft and supple. No point tenderness or step off. Airway patent. No drooling or trismus. No meningismus. Cardiovascular: Regular rate and rhythm. No murmurs, rubs, or gallops appreciated. Respiratory: No tachypnea. Lungs clear to auscultation bilaterally. No wheezing or stridor. Occasional dry cough on examination. Gastrointestinal: Abdomen soft, nontender, with normoactive bowel sounds. No rebound or guarding. Neurological: Awake. Alert. Nonfocal, nonlateralizing. Skin: No rash. Normal color. No pallor. Musculoskeletal: No pedal edema. Full range of motion extremities. Const Vital Signs: 09/30/22 06:29 09/30/22 06:29 Temperature 98.8 F Temperature Source Oral Pulse Rate 92 Respiratory Rate 19 H Respiratory Effort Normal Respiratory Pattern Normal Blood Pressure 142/81 H Blood Pressure Mean 101 Pulse Ox 97 Oxygen Delivery Method Room Air MDM MDM MDM Narrative Medical decision making narrative: Pulse ox 97% on room air without evidence of hypoxia. Given her cough and minimal shortness of breath, I will obtain a chest x-ray to rule out pneumonia. Respiratory panel swab was obtained. Patient is positive for influenza A. Chest x-ray interpreted by myself shows no acute infiltrate or acute cardiopulmonary process. I do not feel antibiotics are indicated. She has past the point of where antivirals would be effective. She was given a note to be off work for the next few days. Treatment will be symptomatic with [id number] analgesics. She was told to drink plenty of oral fluids. I feel she be discharged safely home with follow-up. Return instructions to the emergency department were reviewed. Disposition is discharged home in stable condition. Radiography Diagnostic Testing: Clinical Impression(s) from Imaging Studies Chest X-Ray 09/30/22 07:06 IMPRESSION: No acute cardiopulmonary abnormality. No interval change. Electronically Signed: Rakesh Canchola MD at 7:32 EST , Discharge Plan Triage Chief Complaint: General Illness ED Provider: Shaw Alves Dx/Rx/DC Orders Clinical Impression: URI (upper respiratory infection), Influenza A Instructions: ED Influenza (Adult) Prescriptions: No Action NK Stand Alone Forms: ED Work / School Excuse Primary Care Provider: Panda Stock Referrals: Panda Stock MD [Primary Care Provider] - 3-5 Days if not improving Disposition Disposition: Home, Self Care
[2022-09-30 08:02] VITALS: BP 128/76; PULSE 71; RESP 15; O2SAT 98
== END 2022-09-30 08:03 | disposition home or self-care (01) ==
PROVIDERS: Emergency Provider Emergency Medicine; PCP Family Medicine; Visit Provider Emergency Medicine
DX: J10.1 Influenza due to other identified influenza virus with other respiratory manifestations (principal); Z20.822 Contact with and (suspected) exposure to COVID-19
CPT/HCPCS: 71045; 87428; 87807; 99282

== ENCOUNTER → 2022-11-11 | Outpatient (CLI) | payer OTHER, SELFPAY ==
--- NOTE | 2022-11-11 11:55 | RAD_ITS ---
STUDY: HYSTEROSALPINGOGRAM. REASON FOR EXAM: Female, 27 years old. Fertility FLUOROSCOPY TIME (if supplied): ( 1 minute and 18 seconds. ) minutes/seconds. 3 images were submitted. TECHNIQUE: A hysterosalpingogram was performed by the food broker. Imaging was provided. COMPARISON: None. FINDINGS: The uterus is unremarkable. There is faint opacification of the left fallopian tube. No evidence of spill. RAD/Salpingogram IMPRESSION: Faint opacification of the left fallopian tube. No evidence of spill. The uterus is unremarkable. Electronically Signed: Alexandre Lozano MD at 12:54 EST ,
--- NOTE | 2022-11-18 15:01 | OP.PCM_ITS ---
Operative Report Date of Procedure: 11/11/22 Preop diagnosis: Infertility Postop diagnosis: Same plus bilateral tubal blockage Procedure: Hysterosalpingogram Surgeon: Cintia Mcgee Implantable devices: None Complications: None Findings: Bilateral tubal blockage and normal uterine cavity Operative details: Patient was taken to the x-ray room and was placed on the x- ray table and was in the dorsal lithotomy position. Speculum was placed in the vagina and the cervix prepped with Betadine and the HSG catheter was easily introduced into the uterus and speculum removed. Radiologist was brought in and while pushing radiopaque dye into the uterus via the HSG catheter the radiologist took multiple images and views and confirmed bilateral tubal blockage was seen. additional dye was passed through to ensure a complete exam. there may have been small narrow proximal filling on the left tube but definitely no spill. No gross uterine filling defects or other abnormalities were seen. All instruments removed from the vagina and the uterus without complication. Patient tolerated the procedure well. Multi Select Codes Urinary/Genital Urinary/Genital CPT Codes: 88577 HSG/SIS
== END | disposition home or self-care (01) ==
PROVIDERS: PCP Family Medicine; Visit Provider Obstetrics & Gynecology
DX: Z31.41 Encounter for fertility testing (principal)
CPT/HCPCS: 58340; 74740; Q9967

== ENCOUNTER → 2022-12-25 | Outpatient (CLI) | payer OTHER, SELFPAY ==
--- NOTE | 2022-12-25 13:44 | US_ITS ---
STUDY: ULTRASOUND OF THE FEMALE PELVIS - COMPLETE REASON FOR EXAM: Female, 27 years old. right side pain LMP: 12/02/2022 TECHNIQUE: Transabdominal and Transvaginal TECHNICAL QUALITY: Adequate. COMPARISON: 08/19/2022 FINDINGS: The uterus is anteverted and is in a midline position. The uterus measures 6.9 x 4.1 x 3.1 cm. Normal uterine cervix. The endometrium measures 7 mm in thickness, and is hyperechoic. There is no demonstrated endometrial mass. There is no demonstrated myometrial mass. I.U.D. - The patient does not have an I.U.D. The right ovary is visualized. The right ovary measures 2.8 x 1.9 x 2.3 cm. There is no right ovarian cyst or ovarian mass. There is no visualized right adnexal mass or complex lesion. There is normal arterial and normal venous vascularity. The left ovary is visualized. The left ovary measures 3.4 x 2.3 x 1.9 cm. There is no left ovarian cyst or ovarian mass. There is no visualized left adnexal mass or complex lesion. There is normal arterial and normal venous vascularity. There is no fluid in the cul-de-sac. The pre void volume of the bladder was ml. The post void volume of the bladder was ml. Polycystic ovary disease: No. US/Pelvic (Non ) IMPRESSION: Normal female pelvis. Electronically Signed: Maxime Hough MD at 9:41 EST ,
== END | disposition home or self-care (01) ==
LOC: US 13:43
PROVIDERS: PCP Family Medicine; Visit Provider Nurse Practitioner Women's Health
DX: R10.2 Pelvic and perineal pain (principal)
CPT/HCPCS: 76830; 76856

== ENCOUNTER → 2023-01-27 | Outpatient (CLI) | payer OTHER, SELFPAY ==
[2023-01-27 08:39] LABS: Absolute Lymphocyte Count 2.06 X10^3/uL (0.83-4.51); Absolute Neutrophil Count 4.7 X10^3/uL (2.0-7.7); Basophil# 0.04 X10^3/uL; Basophil% 0.5 % (0-1); Eosinophils% 1.4 % (0-5); Hematocrit 39.2 % (37-47); Hemoglobin 12.8 g/dL (12.0-15.0); Lymphocyte # 2.06 X10^3/ul (0.83-4.51); Lymphocyte % 28.2 % (19-41); Mean Corp Hgb Conc 32.7 g/dL (32-36); Mean Corpuscular Hgb 28.3 pg (27.0-32.0); Mean Corpuscular Volume 86.7 fL (81-99); Mean Platelet Vol. 10.9 fl (6.2-12.0); Monocyte% 5.5 % (0-10); NRBC Flagged by Analyzer 0 % (0-5); Neutrophil # 4.68 X10^3/uL (2.7-7.7); Neutrophil % 64.1 % (47-70); Platelet Count 293 K/mm3 (150-450); RBC Distribution Width CV 13.5 % (11.6-14.6); RBC Distribution Width SD 42.1 fl (35.1-43.9); Red Blood Count 4.52 M/mm3 (4.2-5.4); White Blood Count 7.3 K/mm3 (4.4-11.0)
[2023-01-27 09:26] LABS: ALB/GLOB Ratio 0.9 RATIO (0.9-2.4); AST(SGOT) 13 U/L (15-37); Alanine Aminotransfer ALT/SGPT 24 U/L (13-56); Albumin, Serum 3.3 g/dL (3.2-5.0); Alkaline Phosphatase 70 U/L (45-117); Anion Gap 4 (5-15); BUN 16 mg/dL (7-18); BUN/Creat Ratio 27.2 RATIO (10-20); Calcium,Total 8.6 mg/dL (8.5-10.1); Chloride 107 mmol/L (98-107); Creatinine, Serum 0.59 mg/dL (0.55-1.02); EST Glomerular Filtration Rate 131 mL/min (>60); Est Glom Filt Rate - Afr Amer 158 mL/min (>60); Globulin 3.6 g/dL (2.2-4.2); Glucose 99 mg/dL (74-106); Potassium 3.8 mmol/L (3.5-5.1); Protein, Total 6.9 g/dL (6.4-8.2); Sodium Level 136 mmol/L (136-145)
[2023-01-28 09:50] LABS: Thyroid Peroxidase AB 10 IU/mL (0-34)
== END | disposition home or self-care (01) ==
LOC: LAB 05:05
PROVIDERS: PCP Family Medicine; Visit Provider Obstetrics & Gynecology
DX: E01.0 Iodine-deficiency related diffuse (endemic) goiter (principal); R10.2 Pelvic and perineal pain; N93.0 Postcoital and contact bleeding; N92.1 Excessive and frequent menstruation with irregular cycle
CPT/HCPCS: 36415; 80053; 84443; 85025; 86376

== ENCOUNTER → 2023-01-29 | Outpatient (CLI) | payer OTHER, SELFPAY ==
--- NOTE | 2023-01-29 15:23 | US_ITS ---
STUDY: THYROID ULTRASOUND REASON FOR EXAM: Female, 27 years old. Thyromegaly TECHNIQUE: Ultrasound evaluation of the thyroid was performed with real-time and static haynes-scale imaging. COMPARISON: None. FINDINGS: RIGHT LOBE: The right lobe of the thyroid gland measures 5.2 x 1.3 x 1.6 cm. There is a homogeneous echotexture. There are no demonstrated solid, cystic or complex lesions. In the mid right thyroid there is a 4 x 4 by 2 mm hypoechoic nodule with well-circumscribed borders and no calcification. LEFT LOBE: The left lobe of the thyroid gland measures 20 x 1.3 x 1.1 cm. There is a homogeneous echotexture. There are no demonstrated solid, cystic or complex lesions. In the posterior aspect of the left thyroid there is a well-circumscribed hypoechoic nodule measuring 5 x 3 x 3 mm. Potentially this could represent a small lymph node versus a parathyroid gland. ISTHMUS: The isthmus measures . There is a benign-appearing lymph node in the right neck soft tissues measuring approximately 9 x 8 x 4 mm. There is a visualized hypoechoic periphery and hyperechoic center typical of a lymph node. US/Thyroid IMPRESSION: Small benign-appearing nodule in the mid right thyroid measuring 4 x 4 by 2 mm. Possible small lymph node posterior to the thyroid versus a parathyroid gland. Recommend correlation with laboratory values. There is a mildly enlarged but symmetric thyroid gland. Electronically Signed: Kayce Wang MD at 6:07 EDT ,
== END | disposition home or self-care (01) ==
LOC: US 15:22
PROVIDERS: PCP Family Medicine; Referring Provider Obstetrics & Gynecology; Visit Provider Obstetrics & Gynecology
DX: E01.0 Iodine-deficiency related diffuse (endemic) goiter (principal); N92.1 Excessive and frequent menstruation with irregular cycle; N93.0 Postcoital and contact bleeding; R10.2 Pelvic and perineal pain
CPT/HCPCS: 76536

== ENCOUNTER → 2023-02-09 | Outpatient (CLI) | payer OTHER, SELFPAY ==
[2023-02-09 15:18] LABS: Calcium,Total 9.4 mg/dL (8.5-10.1)
[2023-02-09 15:27] LABS: Vitamin D,25 Hydroxy 31.8 ng/mL
[2023-02-10 08:05] LABS: PTHIN 20.9 pg/mL (18.4-80.1)
== END | disposition home or self-care (01) ==
LOC: PAVLAB 14:20
PROVIDERS: PCP Family Medicine; Referring Provider Surgery; Visit Provider Surgery
DX: E01.0 Iodine-deficiency related diffuse (endemic) goiter (principal)
CPT/HCPCS: 36415; 82306; 82310; 83970

== ENCOUNTER 2023-03-19 07:57 | Day surgery (SDC) | payer OTHER, SELFPAY ==
[2023-03-19] VITALS (7 sets, daily range): BP systolic 90–114; BP diastolic 54–77; PULSE 78–94; RESP 16; TEMP 36.5–36.9; O2SAT 98–100; BMI 42.9
--- NOTE | 2023-03-19 | EGD_PTH ---
PATIENT: KATIE PULLIAM LOC: EN U#:[id number] AGE/SX: 28/F ROOM: RE03/19/[address]: Dr. Praneeth Zamudio MD : 1995 BED: DIS: 03/19/2023 SPEC #: [id number] RECD: 03/19/23 10:05 STATUS: HERBER JAMISON #: [id number] KASH: 03/19/23 00:[address]: Praneeth Zamudio DEPT: SURGICAL PATHOLOGY RECD BY: Sandra Melchor ENTERED: 03/19/23 10:59 SP TYPE: EGD BIOPSY OT DR: Dr. Francisco Stock MD Tissues: A - Gastric mucous membrane B - Gastric mucous membrane C - Esophagus, NOS D - Esophagus, NOS E - Stomach, NOS Procedures: Special Stain Group I Surgery Specimen Level IV Alcian Blue/PAS (control) HEADER OPERATION: EGD (MAC) PRE-OP DIAGNOSIS: Dysphagia TISSUE SUBMITTED: A ? Antrum biopsy, B ? Gastric body polyp biopsy, C ? Erythematous mucosa lesser curvature biopsy, D ? Greater curvature polyp biopsy, E ? Z-line biopsy MICROSCOPIC DIAGNOSIS A. Antrum, biopsy: Moderate gastritis. See microscopic description and comment. B. Gastric body polyp, biopsy: Suggestive of fundic gland polyp. C. Erythematous mucosa lesser curvature, biopsy: Mild gastritis. See microscopic description. D. Greater curvature polyp, biopsy: Suggestive of fundic gland polyp. E. Z-line biopsy: Fragments of gastroesophageal mucosa with mild chronic inflammation. Intestinal metaplasia (goblet cell metaplasia) not identified. See comment. SJ:hedy 03/20/2023 COMMENT A. The results of immunohistochemistry for Helicobacter pylori will be reported separately ([id number]). C. Alcian blue/PAS stain with matched control is used in the evaluation of the specimen. MICROSCOPIC DESCRIPTION Slides are reviewed. A & C. The specimen shows fragments of gastric mucosa with chronic inflammatory cell infiltrates in the lamina propria consisting of lymphocytes and plasma cells, consistent with moderate chronic gastritis. GROSS DESCRIPTION A - Received in fixative is one container labeled with the patient's name and designated antrum biopsy. The specimen consists of multiple irregular fragments of light turk soft tissue that in aggregate measure 0.6 x 0.3 x 0.1 cm. The specimen is totally submitted in one cassette. B - Received in fixative is one container labeled with the patient's name and designated gastric body polyp biopsy. The specimen consists of two irregular fragments of light turk soft tissue that in aggregate measure 0.6 x 0.3 x 0.1 cm. The specimen is totally submitted in one cassette. C - Received in fixative is one container labeled with the patient's name and designated erythematous mucosa lesser curvature biopsy. The specimen consists of one irregular fragment of light turk soft tissue that measures 0.3 x 0.3 x 0.1 cm. The specimen is totally submitted in one cassette. D - Received in fixative is one container labeled with the patient's name and designated greater curvature polyp biopsy. The specimen consists of multiple irregular fragments of light turk soft tissue that in aggregate measure 0.8 x 0.3 x 0.1 cm. The specimen is totally submitted in one cassette. E - Received in fixative is one container labeled with the patient's name and designated Z-line biopsy. The specimen consists of multiple irregular fragments of light turk soft tissue that in aggregate measure 1.0 x 0.7 x 0.2 cm. The specimen is totally submitted in one cassette. / SJ:hedy 03/19/2023 TC:3 CPT: 14727 x5, 11355
[2023-03-19] MEDS: Lactated Ringers 1,000 ML 15 ML IV (08:21)
[2023-03-19 08:22] LABS: Internal QC Validated? YES +Cl - CLEAR BKGD; Pregnancy, Urine Negative Negative
--- NOTE | 2023-03-19 09:15 | HP.PCM_ITS ---
History and Physical Date of Admission: 03/19/23 Date of Service:? 02/09/23 MR#: [id number] Acct: [id number] Name:KATIE BUCK Rep #: [id number] : 1995 ? ? Provider: Dr. Praneeth Zamudio MD Age/Sex:? 27/F ? ? Location: [facility] Status: Signed Intake Vital Signs ? 02/09/2313:38 Height 5 ft 2 in Weight: 235 lb BMI 43.0 BP 113/75 Blood Pressure Location Lt radial Position Sitting Respiration 18 Pulse 82 Pulse Source Monitor Temp 97.4 F L Temp Source Temporal Pulse Oximetry (%) 100 Oxygen Delivery Method room air Intake Visit Reasons:?THYROID NODULE Chief Complaint: thyroid nodule Application Manager Required: No Is patient in pain?: No Allergies adhesive tape Allergy (Intermediate, Verified 02/09/23 13:39) abrasionhydrocodone [From Vicodin] Adverse Reaction (Verified 02/09/23 13:39) Otheraygestin Allergy (Intermediate, Uncoded 02/09/23 13:39) Rashflu vaccine Allergy (Intermediate, Uncoded 02/09/23 13:39) Swelling Medications naproxen 500 mg tablet 500 mg PO Q12H #30 tabs 12/18/22 [Rx Confirmed 02/09/23] medroxyprogesterone 10 mg tablet (Provera) 10 mg PO QDAY #10 tabs 01/26/23 [Rx Confirmed 02/09/23] PFSH Medical History? Anxiety Appendicitis Chest pain Chronic neck and back pain Congenital pulmonic valve stenosis COVID-19 COVID-19 Depression Family history of DVT Fatigue Fertility testing Headaches, cluster Heart murmur Knee pain Pancreatitis Seasonal allergies SOB (shortness of breath) Surgical History? H/O lateral meniscus repair of left knee Hx of cholecystectomy Hx of right breast biopsy Family History? Father Hypertension Myocardial infarction,? Onset Age: 32Grandfather Hypertension Diabetes Myocardial infarction,? Onset Age: 53 ?? ? x2 CAD (coronary artery disease)Grandmother Kidney failure Liver cirrhosis Heart diseaseMother Fibrosis of liver Gluten intoleranceOther Arthritis Asthma Bleeding disorder CVA (cerebral vascular accident) Cancer Gout Sudden cardiac Thyroid disorder Social History? Smoking Status:? Never smoker alcohol intake:? current alcohol intake frequency: holidays/special occasions only details:? social substance use type:? does not use caffeine:? Yes what type of physical activity do you participate in:? walking and running frequency:? 5-6 times per week seatbelt use:? always do you feel safe at home:? Yes additional social history:? Works at [employer] HPI HPI HPI: Patient is a 27-year-old female who presents for recently diagnosed thyroid nodularity and thyromegaly.? They are referred for surgical consultation from Dr. Mcgee of [facility].? This was discovered first by her primary care provider Dr. Stock, however, a follow-up ultrasound did not reveal any thyroid nodules at that time.? It was only on patient's repeat thyroid ultrasound performed 01/29/2023 that nodularity was noted. They do experience difficulty with swallowing.? They state this is primarily in response to solids and occurs on a almost daily basis.? They do not complain of a new cough, but remark of a chronic dry cough since having very bad bouts with both the flu and COVID.? They report that her cough started October 2021.? They do not appreciate new voice changes.? They also do have a history of snoring. Additionally, their weight has been stable and they report this is despite trying to lose weight through increased activity and counting carbohydrates.? There is also a history of recent fatigue.? Patient remarks that she could sleep for 15 hours straight and still be tired.? She has some difficulty falling asleep, but mostly feels as though she is not refreshed on awakening.? For many years now, the report a history of cold intolerance.? ? Other symptoms include: Occasional palpitations and anxiety (patient states that her anxiety and depression have improved since her teenage years). Screening patient for possible diagnosis of hyperparathyroidism, patient denies any history of brittle fingernails, kidney stones, or broken bones.? She denies any history of constipation or reflux. They do have a family history of thyroid disorders or endocrinopathies.? She believes her mother has thyroid issues, but does not believe she requires medication or as required surgery for treatment of this unspoken condition.? There is no history of prior radiation exposure. Previous work-up has included thyroid ultrasound on 01/29/2023.? This showed a right thyroid lobe measuring 5.2 x 1.3 x 1.6 cm.? Within the mid aspect of this lobe there was a 0.4 x 0.4 x 0.2 hypoechoic, well-circumscribed nodule.? Per radiology the left thyroid lobe measured 20 x 1.3 x 1.1 cm (this appears to have been a mistake as review of the original imaging indicates that the technologist measured the left thyroid lobe at 5.3 x 1.3 x 1.1 cm).? Posterior to this lobe radiology notes a possible small lymph node versus a parathyroid gland that measures 0.5 x 0.3 x 0.3 cm.? Lastly they noted a benign-appearing lymph node lateral to the right thyroid lobe measuring 0.9 x 0.8 x 0.4 cm.? An FNA has not been performed.? Other tests include: TSH of 2.1 (01/27/2023), thyroid peroxidase antibodies: 10 (01/27/2023).,? Calcium 8.6 (01/27/2023). ROS General General: Yes fatigue; No weight change, appetite, colon cancer, breast cancer or weakness HEENT HEENT: Yes difficulty swallowing; No eye injury, eye surgery, swollen glands or hoarseness Endo Endocrine: No thyroid disease, diabetes mellitus, thyroid cancer, Hair loss, heat intolerance or cold intolerance Skin Skin: No rash or changing moles Breast Breast: No left breast lump, right breast lump, nipple discharge, breast pain, abnormal mammogram, abnormal US or breast enlargement Musc Musculoskeletal: No back problems, arthritis, rheumatoid arthritis, gout or joint pain Cardio Cardiovascular: Yes murmur; No pacemaker, heart disease, atrial fibrillation, high blood pressure, heart attack, heart stent, palpitations, shortness of breat with exertion or chest pain Psych Psychiatric: Yes depression and anxiety; No hearing voices Resp Respiratory: No shortness of breath, No sleep apnea, No cough, No COPD, No asthma, No emphysema and No wheezing Gastro Gastrointestinal: No abdominal pain, No nausea or vomiting, No diarrhea, No constipation, No blood in stool, No acid reflux, No hemorrhoids, No ulcers, Yes gallbladder problem and No black,tarry stools Additional Details: pancreatitis Juan Hematologic: No blood thinners, No blood disorders, No bleeding, No anemia and No blood clots Neuro Neurologic: No system reviewed and no additional complaints, except as documented, No as per HPI, No abnormal gait, No abnormal hearing, No abnormal movements, No abnormal speech, No behavioral changes, No burning sensations, No confusion, No convulsions, No disequilibrium, No dizziness, No localized weakness, No frequent falls, No headache(s), No lack of coordination, No loss of vision, No memory loss, No numbness, No other visual disturbances, No radicular pain, No restless legs, No sensory deficit, No syncope, No tingling, No tremor(s), No weakness and No other Exam Const General: cooperative, comfortable and no acute distress Orientation: alert, awake and oriented x3 Neck Other: Thyromegaly but no discrete nodules palpated.? Patient has no evidence of lymphadenopathy with exam.? No thyroid bruit. Bedside ultrasound examination confirms the formal ultrasound findings.? Further, I did not identify any discrete polar vessels that would suggest the hypoechoic structure posterior to the left thyroid lobe is a parathyroid gland.? That recognized, I do see this hypoechoic structure is separate from the thyroid lobe based on my ability to continuously scan the gland. Resp Effort & Inspection: normal respiratory effort Auscultation: no rales, no rhonchi and no wheezes Cardio Rate: regular rate Rhythm: regular rhythm Assessment and Plan Assessment and Plan (1) Thyroid nodule: ?Status:?Acute ?Comment: This is a 27-year-old female, euthyroid from an endocrine standpoint, who presents for evaluation of recently noted thyroid nodule with ultrasound exam performed for diagnosis, clinically, of thyromegaly.? This nodule is located in the patient's right thyroid lobe and is hypoechoic, solid, and exhibits a clear margin.? This qualifies it as a TI-RADS 4 lesion, however, given that its greatest dimension is just 4 mm, I do not believe it warrants further attention.? There is a separate area posterior to the left thyroid lobe that is recognized by radiology and with my own bedside ultrasound addressed below. ?Plan: Subcentimeter, benign-appearing thyroid nodule.? No routine surveillance recommended.? However, I have cautioned patient that nodules have been shown to grow in response to elevated TSH and she should continue to periodically have her thyroid functions checked (2) Abnormal ultrasound of neck: ?Status:?Acute ?Comment: 5 mm hypoechoic structure posterior to left thyroid lobe read by radiology is suspicious for lymph node versus parathyroid gland.? Clinically patient does not have a diagnosis of hyperparathyroidism, but I would like to evaluate this biochemically with lab draw of serum calcium, PTH, and vitamin D. ?Plan: ? Serum calcium, PTH, and vitamin D (3) Thyromegaly: ?Status:?Chronic ?Comment: Patient describes some chronic dysphagia that is routinely bothersome to her.? Given that the depth of her thyroid gland is relatively within normal proportions, I do not suspect at this time that this is contributing to her symptoms of dysphagia.? Patient does communicate that she was evaluated by ENT and using an NPL scope, ENT diagnosed her with acid reflux.? I have offered for patient to consider diagnostic EGD to evaluate this further, but patient requests additional time before making a decision. (4) Dysphagia: ?Status:?Chronic ?Comment: As above, patient complains of chronic, but nearly daily dysphagia.? Previously evaluated by ENT and determined to have inflammatory change secondary to reflux.? Also as above, I have offered patient to consider diagnostic EGD.? Patient to think this over and we will plan to revisit this conversation once we follow-up labs drawn for item #1. ?Plan: ? Patient to consider possible diagnostic EGD.? We will revisit this offering once labs are reported and I am able to notify patient of these results ? ? ? Orders: Orders PTHIN Today E01.0 - Iodine-deficiency related diffuse (endemic) goiter ? Calcium,Total Today E01.0 - Iodine-deficiency related diffuse (endemic) goiter ? I have examined the patient and the H&P has been reviewed. There are no clinical changes since date of exam. Patient confirms she continues to have difficulty swallowing. She continues to deny any overt symptoms of reflux with burning or tasting acid. She denies any questions related to today's procedure. Therefore we will proceed with EGD under sedation as discussed above.
--- NOTE | 2023-03-19 09:57 | OP.EGD_ITS ---
Patient Name: Mee Cain Procedure Date: 03/19/2023 9:00 AM Date of : 1995 Age: 28 Procedure: Upper GI endoscopy Indications: Suspected esophageal reflux Providers: Praneeth Zamudio MD Medicines: See the Anesthesia note for documentation of the administered medications Patient Profile: Refer to note in patient chart for documentation of history and physical. Patient has symptoms of acute dysphagia and dysphagia with solids. Complications: No immediate complications. Estimated blood loss: Minimal. Procedure: Pre-Anesthesia Assessment: - The heart rate, respiratory rate, oxygen saturations, blood pressure, adequacy of pulmonary ventilation, and response to care were monitored throughout the procedure. After obtaining informed consent, the endoscope was passed under direct vision. Throughout the procedure, the patient's blood pressure, pulse, and oxygen saturations were monitored continuously. The gastroscope was introduced through the mouth, and advanced to the second part of duodenum. The upper GI endoscopy was accomplished without difficulty. The patient tolerated the procedure well. Scope In: 9:21:35 AM Scope Out: 9:44:31 AM Total Procedure Duration Time 0 hours 22 minutes 56 seconds Findings: The first portion of the duodenum and second portion of the duodenum were normal. No biopsies or other specimens were collected for this exam. Diffuse mildly erythematous mucosa without bleeding was found in the gastric body and in the gastric antrum. Biopsies were taken with a cold forceps for histology. Estimated blood loss was minimal. Biopsies were taken with a cold forceps for Helicobacter pylori testing. Estimated blood loss was minimal. Multiple 3 mm pedunculated and sessile polyps with no bleeding and no stigmata of recent bleeding were found in the gastric body and on the greater curvature of the stomach. Biopsies were taken with a cold forceps for histology. No biopsies or other specimens were collected for this exam. A small hiatal hernia was present. No biopsies or other specimens were collected for this exam. The Z-line was irregular and was found 37 cm from the incisors. Biopsies were taken with a cold forceps for histology. Estimated blood loss was minimal. The exam was otherwise without abnormality. Impression: - Normal first portion of the duodenum and second portion of the duodenum. No specimens collected. - Erythematous mucosa in the gastric body and antrum. Biopsied. - Multiple gastric polyps. Biopsied. No specimens collected. - Small hiatal hernia. No specimens collected. - Z-line irregular, 37 cm from the incisors. Biopsied. - The examination was otherwise normal. Recommendation: - Discharge patient to home (via wheelchair). - Resume previous diet today. - Use Prilosec (omeprazole) 20 mg PO daily today. - Await pathology results. - Telephone my office for pathology results in 1 week. - Continue present medications. Procedure Code(s): --- Professional --- 98308, Esophagogastroduodenoscopy, flexible, transoral; with biopsy, single or multiple Diagnosis Code(s): --- Professional --- K31.89, Other diseases of stomach and duodenum K31.7, Polyp of stomach and duodenum K44.9, Diaphragmatic hernia without obstruction or gangrene K22.8, Other specified diseases of esophagus CPT copyright 2017 [employer]. All rights reserved. The codes documented in this report are preliminary and upon coder operator review may be revised to meet current compliance requirements. Praneeth Zamudio MD 03/19/2023 9:57:13 AM This report has been signed electronically. Number of Addenda: 0 Note Initiated On: 03/19/2023 9:00 AM
--- NOTE | 2023-03-19 09:58 | OP.CCLET_ITS ---
03/19/2023 Panda Stock [address] [place] [address] Re : Upper GI endoscopy procedure for Mee Cain Dear Dr. Stock This procedure was performed on February. My impressions and recommendations are as follows: Impressions : - Normal first portion of the duodenum and second portion of the duodenum. No specimens collected. - Erythematous mucosa in the gastric body and antrum. Biopsied. - Multiple gastric polyps. Biopsied. No specimens collected. - Small hiatal hernia. No specimens collected. - Z-line irregular, 37 cm from the incisors. Biopsied. - The examination was otherwise normal. Recommendations : - Discharge patient to home (via wheelchair). - Resume previous diet today. - Use Prilosec (omeprazole) 20 mg PO daily today. - Await pathology results. - Telephone my office for pathology results in 1 week. - Continue present medications. My findings are described in the full procedure note, which is enclosed. If I can be of further assistance, please feel free to contact me at Doctor phone number(s): , Work: . Sincerely, Praneeth Zamudio MD 03/19/2023 9:57:13 AM This report has been signed electronically.
--- NOTE | 2023-03-19 10:10 | IMM_PTH ---
PATIENT: KATIE PULLIAM LOC: EN U#:[id number] AGE/SX: 28/F ROOM: RE03/19/[address]: Dr. Praneeth Zamudio MD : 1995 BED: DIS: 03/19/2023 SPEC #: [id number] RECD: 03/19/23 12:58 STATUS: HERBER REQ #: [id number] KASH: 03/19/23 10:[address]: Praneeth Zamudio DEPT: IMMUNOHISTOCHEMISTRY RECD BY: Anika Wilhelm ENTERED: 03/19/23 12:58 SP TYPE: IMMUNO OTHR DR: Dr. Francisco Stock MD Tissues: A - Stomach, NOS Procedures: H Pylori (initial) PHYSICIAN & INSTITUTION [place] [id number] SPECIMEN INFORMATION: Tissue Source: A ? Antrum biopsy Clinical Info: Dysphagia Specimen Number: [id number] CPT code: 77906 METHODOLOGY: Deparaffinized sections of prefer/formalin-fixed tissue or PAP/DQ stained slides are incubated with monoclonal/polyclonal antibodies/oligonucleotide probes. Localization is made via biotin free immunoperoxidase method. Appropriate controls are performed and reacted as expected. Results on target cell population are indicated in the following table: RESULTS: ANTIBODY / CLONE RESULT Block A H Pylori (polyclonal) negative These tests were developed and their performance characteristics determined by [facility]. They may not have been cleared or approved by the U.S. Food and Drug Administration. The FDA has determined that such clearance or approval is not necessary. The above immunohistochemical/dualISH markers are ordered and reviewed by the Pathologist. INTERPRETATION: A. Antrum, biopsy: Negative for Helicobacter pylori organisms. SJ:hedy 03/20/2023
== END 2023-03-19 10:41 | disposition home or self-care (01) ==
LOC: EN 07:58 → AC 07:59
PROVIDERS: Anesthesiology; PCP Family Medicine; Referring Provider Surgery; Visit Provider Surgery
PROC: 0DJ08ZZ Inspection of Upper Intestinal Tract, Via Natural or Artificial Opening Endoscopic (ICD-10-PCS; CPT 43235; principal; 2023-03-19 10:05)
DX: K29.70 Gastritis, unspecified, without bleeding (principal); K44.9 Diaphragmatic hernia without obstruction or gangrene; R13.10 Dysphagia, unspecified; K31.7 Polyp of stomach and duodenum; E01.0 Iodine-deficiency related diffuse (endemic) goiter; K31.89 Other diseases of stomach and duodenum; Z86.16 Personal history of COVID-19
CPT/HCPCS: 43239; 81025; 88305; 88312; 88342; J7120; J2405

== ENCOUNTER → 2023-04-02 | Outpatient (CLI) | payer OTHER, SELFPAY ==
--- NOTE | 2023-04-02 11:00 | ECHOD_ITS ---
Reason For Study: CONGENITAL PV STENOSIS Procedure This was a 2D Doppler, Color Flow transthoracic echocardiogram. Exam performed in department. Left Ventricle Normal LV size. Left ventricular systolic function is normal. The estimated ejection fraction is 60 %. No regional wall motion abnormalities noted. Right Ventricle Normal RV size. Normal systolic function. Atria Normal left atrium. Normal right atrium. Mitral Valve Normal mitral valve. Tricuspid Valve Normal tricuspid valve. Aortic Valve Normal aortic valve. Trisinus/trileaflet aortic valve. Pulmonic Valve Normal pulmonic valve. Great Vessels Normal aortic root. The pulmonary artery is normal size. Normal inferior vena cava. Pericardium/Pleural No pericardial effusion. MMode/2D Measurements & Calculations LVIDd: 4.5 cm IVSd: 0.73 cm Ao root diam: 2.6 cm LVIDs: 2.8 cm LVPWd: 0.81 cm RVDd: 2.9 cm FS: 37.1 % LAV(MOD-bp): 46.4 ml LVAd ap4: 33.4 cm2 LVAd ap2: 32.4 cm2 LAV(MOD-bp) Indexed: 22.6 ml/m2 LVLd ap4: 8.8 cm LVLd ap2: 8.9 cm LAV(MOD-sp2): 44.1 ml EDV(MOD-sp4): 104.2 ml EDV(MOD-sp2): 98.7 ml LAV(MOD-sp4): 47.0 ml EDV(sp4-el): 107.7 ml EDV(sp2-el): 100.2 ml LVAs ap4: 19.9 cm2 LVAs ap2: 16.7 cm2 LVLs ap4: 7.6 cm LVLs ap2: 7.3 cm ESV(MOD-sp4): 43.9 ml ESV(MOD-sp2): 31.6 ml ESV(sp4-el): 44.1 ml ESV(sp2-el): 32.4 ml EF(MOD-sp4): 57.9 % EF(MOD-sp2): 67.9 % EF(sp4-el): 59.1 % SV(MOD-sp4): 60.3 ml SV(MOD-sp2): 67.0 ml SV(sp4-el): 63.6 ml LA dimension(2D): 3.2 cm LA A4 area: 16.8 cm2 RA A4 area: 11.3 cm2 Time Measurements MV dec time: 0.18 sec Doppler Measurements & Calculations MV E max bill: 97.6 cm/sec Lat Peak E' Bill: 20.7 cm/sec Med Peak E' Bill: 16.7 cm/sec MV A max bill: 55.7 cm/sec E/E' lat: 4.7 E/E' med: 5.9 MV E/A: 1.8 MV V2 max: 108.4 cm/sec MV P1/2t max bill: 107.8 cm/sec Ao V2 max: 137.1 cm/sec MV max P.7 mmHg MV P1/2t: 57.6 msec Ao max P.5 mmHg MV V2 mean: 57.5 cm/sec MV dec slope: 548.3 cm/sec2 Ao V2 mean: 97.5 cm/sec MV mean P.5 mmHg Ao mean P.3 mmHg MV V2 VTI: 25.0 cm MVA(P1/2t): 3.8 cm2 Ao V2 VTI: 30.4 cm AV (velocity ratio): 0.72 LV V1 max: 101.5 cm/sec PA V2 max: 146.3 cm/sec LV V1 max P.1 mmHg PA V2 mean: 101.1 cm/sec LV V1 mean P.3 mmHg LV V1 mean: 71.2 cm/sec LV V1 VTI: 22.0 cm ECHO/Echo Complete Interpretation Summary Normal LV size. Left ventricular systolic function is normal. The estimated ejection fraction is 60 %. The pulmonic valve is not well visualized the gradients across the valve appear ed to be stable compared to a year ago. The peak gradient is no more than 1.5 m/s suggesting no significant pulmonic stenosis. Ordering Physician: Jannette Wilcox Referring Physician: Francisco Stock Performed By: Jerri Garcia, TODD, RVT
== END | disposition home or self-care (01) ==
LOC: CVS 10:59
PROVIDERS: PCP Family Medicine; Referring Provider Internal Medicine Cardiovascular Disease; Visit Provider Internal Medicine Cardiovascular Disease
DX: Q22.1 Congenital pulmonary valve stenosis (principal)
CPT/HCPCS: 93306

== ENCOUNTER → 2023-05-15 | Outpatient (CLI) | payer OTHER, SELFPAY ==
[2023-05-22 20:07] LABS: Testosterone, Total 23 ng/dL (13-71)
== END | disposition home or self-care (01) ==
LOC: LAB 09:28
PROVIDERS: PCP Family Medicine; Visit Provider Obstetrics & Gynecology
DX: L67.9 Hair color and hair shaft abnormality, unspecified (principal); N93.9 Abnormal uterine and vaginal bleeding, unspecified
CPT/HCPCS: 36415; 82627; 83498; 84402; 84403; 82626

== ENCOUNTER → 2023-09-10 | Outpatient (CLI) | payer OTHER, SELFPAY ==
[2023-09-10 16:46] LABS: Thyroid Stim Hormone (TSH) 1.51 uIU/mL (0.358-3.74)
[2023-09-10 17:05] LABS: Ferritin 64 ng/mL (8-252)
== END | disposition home or self-care (01) ==
PROVIDERS: Referring Provider Obstetrics & Gynecology; Visit Provider Obstetrics & Gynecology
DX: E01.0 Iodine-deficiency related diffuse (endemic) goiter (principal); R53.83 Other fatigue
CPT/HCPCS: 36415; 82728; 84439; 84443

== ENCOUNTER → 2023-12-23 | Outpatient (CLI) | payer OTHER, SELFPAY ==
--- OUTSIDE RECORDS SUMMARY | 2023-12-23 08:17 | XMS RPT_ITS | CCD ---
Author Name Unknown Address [address] [place] [address] Organization [facility] Results Test Name Value Interpretation Reference Range Facil ity Summary Purpose Family History No Family History Records Found Advance Directives No Advanced Directives Records Found Additional Source Comments INFORMATION SOURCE (unrecogn ized section and content) FOR RECORDS PERTAINING TO PATIENTS WHO ARE OR HAVE BEEN ENROLLED IN A CHEMICAL DEPENDENCY/SUBSTANCEABUSE PROGRAM, SOME INFORMATION MAY BE OMITTED. This clinical summary was aggregated from multiple sources. Caution should be exercised in using it in the provision of clinical care. This summary normalizes information from multiple sources, and as a consequence, information in this document may materially change the coding, format and clinical context of patient data. In addition, data may be omitted in some cases. CLINICAL DECISIONS SHOULD BE BASED ON THE PRIMARY CLINICAL RECORDS. [employer] provides no warranty or guarantee of the accuracy or completeness of information in this document.
== END | disposition home or self-care (01) ==
LOC: RAD 08:00
PROVIDERS: PCP Family Medicine; Referring Provider Chiropractor; Visit Provider Chiropractor
DX: M99.03 Segmental and somatic dysfunction of lumbar region (principal); M99.05 Segmental and somatic dysfunction of pelvic region
CPT/HCPCS: 72110

== ENCOUNTER → 2024-02-03 | Outpatient (CLI) | payer OTHER, SELFPAY ==
[2024-02-03 05:36] LABS: Anion Gap 4 (5-15); BUN 13 mg/dL (7-18); BUN/Creat Ratio 17.7 RATIO (10-20); Calcium,Total 8.8 mg/dL (8.5-10.1); Chloride 108 mmol/L (98-107); Creatinine, Serum 0.74 mg/dL (0.55-1.02); EST Glomerular Filtration Rate 100 mL/min (>60); Est Glom Filt Rate - Afr Amer 121 mL/min (>60); Glucose 106 mg/dL (74-106); Potassium 3.5 mmol/L (3.5-5.1); Sodium Level 140 mmol/L (136-145)
== END | disposition home or self-care (01) ==
LOC: LAB 04:47
PROVIDERS: PCP Family Medicine; Visit Provider Obstetrics & Gynecology
DX: M79.669 Pain in unspecified lower leg (principal)
CPT/HCPCS: 36415; 80048

== ENCOUNTER 2024-03-09 10:27 | Emergency (ER) | payer OTHER, SELFPAY ==
[2024-03-09 10:28] VITALS: BP 119/79; PULSE 79; RESP 18; TEMP 35.8; O2SAT 98; BMI 37.5
--- NOTE | 2024-03-09 10:41 | EKG12_ITS ---
Test Reason : CP/NUMBNESS Blood Pressure : / mmHG Vent. Rate : 078 BPM Atrial Rate : 078 BPM P-R Int : 148 ms QRS Dur : 072 ms QT Int : 358 ms P-R-T Axes : 007 035 014 degrees QTc Int : 408 ms Normal sinus rhythm Normal ECG Confirmed by Praneeth Toro ([id number]), editor dictionary PERLA RAND ([id number]) on 03/14/2024 9:37:14 AM Referred By: Confirmed By:Praneeth Toro
--- NOTE | 2024-03-09 10:41 | ED.VIS.CHEST ---
HPI History of Present Illness Chief Complaint: Chest Pain [facility] Medical History Wears glasses Wears contact lenses Alcohol use Easy bruising Back pain Difficulty swallowing Diarrhea Non-smoker Leg cramps History of stress test History of echocardiogram Cardiology follow-up encounter Hx of fracture of finger Fertility testing COVID-19 COVID-19 Seasonal allergies Knee pain Fatigue Family history of DVT Abnormal stress test Depression Congenital pulmonic valve stenosis Pancreatitis Heart murmur Headaches, cluster Anxiety Home Medications ?Medication ?Instructions ?Recorded ?Last Taken ?Type naproxen 500 mg tablet 500 mg PO PRN PRN Pain 03/16/23 Unknown History omeprazole 20 mg capsule,delayed 20 mg PO DAILY #14 caps 03/19/23 Unknown Rx release drospirenone 3 mg-ethinyl 1 tab PO QDAY #28 tabs 05/15/23 Unknown Rx estradiol 0.02 mg tablet topiramate 50 mg tablet 50 mg PO BID #60 tabs 09/10/23 Unknown Rx phentermine 37.5 mg tablet 18.75 mg (1/2 x 37.5 mg) PO QDAY 12/29/23 Unknown Rx (Adipex-P) #15 tabs Allergy/AdvReac Type Severity Reaction Status Date / Time adhesive tape Allergy Intermediate abrasion Verified 03/09/24 10:28 Influenza Virus Vaccines Allergy Intermediate Swelling Verified 03/09/24 10:28 norethindrone (From Aygestin) Allergy Intermediate Rash Verified 03/09/24 10:28 hydrocodone (From Vicodin) AdvReac Other Verified 03/09/24 10:28 Family History Father Hypertension Myocardial infarction, Onset Age: 32 Grandfather Hypertension Diabetes Myocardial infarction, Onset Age: 53 x2 CAD (coronary artery disease) Grandmother Kidney failure Liver cirrhosis Heart disease Mother Fibrosis of liver Gluten intolerance Other Arthritis Asthma Bleeding disorder CVA (cerebral vascular accident) Cancer Gout Sudden cardiac Thyroid disorder Surgical History Hx of wisdom tooth extraction History of appendectomy H/O lateral meniscus repair of left knee Hx of cholecystectomy Hx of right breast biopsy Social History Smoking Status: Never smoker alcohol intake: current alcohol intake frequency: holidays/special occasions only details: social substance use type: does not use caffeine: Yes what type of physical activity do you participate in: walking and running frequency: 5-6 times per week seatbelt use: always do you feel safe at home: Yes additional social history: 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 EXAM Physical Exam Const Vital Signs: 03/09/24 10:27 03/09/24 10:28 03/09/24 10:41 Temperature 96.4 F L Temperature Source Temporal Pulse Rate 79 Respiratory Rate 18 Respiratory Effort Normal Non-Labored Blood Pressure 119/79 Blood Pressure Mean 92 Pulse Ox 98 Oxygen Delivery Method Room Air Room Air 03/09/24 12:36 Temperature Temperature Source Pulse Rate 82 Respiratory Rate 18 Respiratory Effort Blood Pressure 125/71 H Blood Pressure Mean 89 Pulse Ox 97 Oxygen Delivery Method Room Air MDM MDM MDM Narrative Medical decision making narrative: HISTORY OF PRESENT ILLNESS: 21-year-old female presents with chest pain states this began 1 day ago and radiates to the left arm. No pain now. Notes intermittent shocklike sensation across her chest last episode was last night. No syncope. No palpitations. No bleeding diathesis. No vomiting or diarrhea. No cough fever or chills. Denies shortness of breath. Patient denies sudden onset of pain, no tearing sensation, no migratory symptoms, no new numbness, weakness or loss of sensation. Patient denies family history or personal history of Marfan syndrome or Aj-Danlos. The patient denies recent surgery in the last 4 weeks or immobilization in the last 3 days, hemoptysis, unilateral leg swelling or malignancy with treatment the last 6 months. No current including oral contraceptives estrogen use noted (although this is documented in her chart). REVIEW OF SYSTEMS: All other systems reviewed and are negative except as noted in the history of present illness. At least 10 review of systems reviewed and are negative except as noted in history of present illness. PHYSICAL EXAM: Nursing triage notes reviewed, Vital signs reviewed Constitutional: please see mdm HENT: MMM Eyes: Pupils equal round and reactive to light, Extraocular muscles intact Neck: No stridor, no JVD, full neck ROM Lungs: Clear to auscultation, No wheezing or rales. No increased work of breathing, no conversational dyspnea, no accessory muscle use, no nasal flaring. No respiratory distress noted Heart: Regular rate and rhythm, No murmurs, No rubs and No gallops, 2+ distal pulses (radial, femoral, posterior tibial) in all extremities Abdomen: Soft, there is no tenderness, rigidity, rebound or guarding, no obvious peritoneal signs, no palpable pulsatile abdominal masses, no auscultated abdominal bruit : No CVAT Extremities: No edema Neuro: No focal neurological deficits, cranial nerves II through XII intact, 5/5 strength in all extremities. Intact sensation to light touch in all extremities, 2+ reflexes bilateral patella tendons. Normal gait. No ataxia. Skin: No rash or lesions noted MEDICAL DECISION MAKING: Chief Complaint: Chest pain External records reviewed: Imaging studies reviewed: CT of the chest was negative for PE 2021 Factors affecting care: GERD, anxiety, congenital pulmonic stenosis Social determinants of health: None History obtained from others: None Consults: none MDM Narrative: Patient was hemodynamically stable, afebrile, nontoxic-appearing. No focal cardiopulmonary normalities noted on exam. I considered the following differential diagnosis: ACS, arrhythmia, anemia, electrolyte abnormality, pneumonia, pneumothorax, GI etiology, PE PE less likely given low risk Wells score. Aortic dissection is thought to be less likely given no sudden ripping or tearing pain, migratory pain, palpable pulse inequalities, no focal neurologic deficits concurrent with chest pain. Chance of dissection less than 10/1999. Pericarditis less likely given no pathognomonic EKG changes (no diffuse ST elevations, AR depressions). GI etiology (i.e. Boerhaave syndrome) less likely given no chest or neck crepitus, no vomiting or forced retching. I obtained a broad lab and imaging workup to further elucidate etiology of his complaints ALL IMAGES (IF OBTAINED) HAVE BEEN PERSONALLY REVIEWED AND INTERPRETED BY MYSELF. EKG with normal sinus rhythm, normal axis, no intervals, no STEMI, no stigmata of pericarditis. High-sensitivity troponin is negative, no evidence of myocardial ischemia CBC without leukocytosis, severe anemia, no thrombocytopenia. BMP without evidence of significant electrolyte abnormalities, no anion gap, no acute kidney injury. I completed a HEART Score to screen for Major Adverse Cardiac Event (MACE) in this patient. The evidence indicates that the patient is very low risk for MACE and this is consistent with my clinical intuition. The risk of further workup or hospitalization for MACE is likely higher than the risk of the patient having a MACE. It is, therefore, in the patient?s best interest not to do additional emergent testing or to be hospitalized for MACE at this time. Shared Decision-Making No hospitalization indicated I have discussed with the patient my clinical impression and the result of the HEART Score to screen for MACE, as well as the risks of further testing and hospitalization. The HEART Score shows that the risk for MACE is less than 1%. Although the risk of MACE has not been completely eliminated, the risks of further testing or hospitalization for MACE likely exceed any potential benefit, and the patient agrees with not pursuing further emergent evaluation or hospitalization for MACE at this time. The patient and/or family, caregivers express understanding. The patient and/or family, caregivers agrees with the plan. Total critical care time today provided was at least 0 minutes. This excludes separately billable procedures. Critical care time (if documented) is secondary to the patient having high probability of clinically significant/life threatening deterioration in the patient's condition which required my urgent intervention. Impression: 1. Chest pain 2. History of GERD Disposition: Discharge home Wellington Raza DO Lab Data Labs: Laboratory Results - last 24 hr 03/09/24 11:14 WBC 6.7 RBC 4.40 Hgb 12.3 Hct 38.6 MCV 87.7 MCH 28.0 MCHC 31.9 L RDW Std Deviation 42.5 RDW Coeff of Amber 13.2 Plt Count 277 MPV 10.6 Immature Gran % (Auto) 0.300 Neut % (Auto) 66.6 Lymph % (Auto) 25.2 Culberson % (Auto) 6.0 Eos % (Auto) 1.6 Baso % (Auto) 0.3 Absolute Neuts (auto) 4.4 Absolute Lymphs (auto) 1.68 Nucleated RBC % 0 Sodium 138 Potassium 3.8 Chloride 105 Carbon Dioxide 28.0 Anion Gap 5 BUN 10 Creatinine 0.54 L Estim Creat Clear Calc 171.12 Est GFR (MDRD) Af Amer 171 Est GFR (MDRD) Non-Af 141 BUN/Creatinine Ratio 18.3 Glucose 103 Calcium 8.9 Troponin I High Sens < 3 L B-Natriuretic Peptide 19.9 Radiography Diagnostic Testing: Clinical Impression(s) from Imaging Studies Chest X-Ray 03/09/24 11:29 IMPRESSION: No acute cardiopulmonary process identified. Electronically Signed: Calli Chahal MD at 11:49 EDT , Discharge Plan Triage Chief Complaint: Chest Pain ED Provider: Wellington Raza Dx/Rx/DC Orders Clinical Impression: Chest pain Instructions: Chest Pain [facility] Prescriptions: No Action drospirenone-ethinyl estradiol 3-0.02 mg tablet 1 tab PO QDAY Qty: 28 12RF topiramate 50 mg tablet 50 mg PO BID Qty: 60 12RF Rx Instructions: take before breakfast and before dinner phentermine [Adipex-P] 37.5 mg tablet 18.75 mg PO QDAY Qty: 15 2RF Rx Instructions: BMI 38 naproxen 500 mg tablet 500 mg PO PRN PRN (Reason: Pain) Rx Instructions: administer with food or milk omeprazole 20 mg capsule,delayed release(DR/EC) 20 mg PO DAILY Qty: 14 1RF Primary Care Provider: Francisco Stock Referrals: Francisco Stock MD [Primary Care Provider] - Activity Restrictions/Additional Instructions: Thank you for trusting us with your care today! Please take Tylenol (2 pills, 650 mg), ibuprofen (2 pills, 400 mg) every 6 hours as needed for pain and fever control. Please return to the emergency department if your symptoms change or worsen. Please follow with your primary care physician for further outpatient evaluation and management. Print Language: Burkinan Disposition Disposition: Home, Self Care
[2024-03-09 11:26] LABS: Absolute Lymphocyte Count 1.68 X10^3/uL (0.83-4.51); Absolute Neutrophil Count 4.4 X10^3/uL (2.0-7.7); Basophil# 0.02 X10^3/uL; Basophil% 0.3 % (0-1); Eosinophil# 0.11 X10^3/uL; Eosinophils% 1.6 % (0-5); Hematocrit 38.6 % (37-47); Hemoglobin 12.3 g/dL (12.0-15.0); Lymphocyte # 1.68 X10^3/ul (0.83-4.51); Lymphocyte % 25.2 % (19-41); Mean Corp Hgb Conc 31.9 g/dL (32-36); Mean Corpuscular Volume 87.7 fL (81-99); Mean Platelet Vol. 10.6 fl (6.2-12.0); NRBC Flagged by Analyzer 0 % (0-5); Neutrophil # 4.44 X10^3/uL (2.7-7.7); Neutrophil % 66.6 % (47-70); Platelet Count 277 K/mm3 (150-450); RBC Distribution Width CV 13.2 % (11.6-14.6); RBC Distribution Width SD 42.5 fl (35.1-43.9); White Blood Count 6.7 K/mm3 (4.4-11.0)
--- NOTE | 2024-03-09 11:29 | RAD_ITS ---
HISTORY: chest pain. TECHNIQUE: XR Chest 1 View. COMPARISON: 09/30/2022. FINDINGS: CARDIOMEDIASTINAL BORDERS: Cardiac silhouette within normal limits in size. Mediastinal contour unremarkable. LUNGS: Radiographically clear. PLEURA: No pleural effusion or pneumothorax seen. OSSEOUS STRUCTURES: Unremarkable. RAD/Chest 1 View (Portable) IMPRESSION: No acute cardiopulmonary process identified. Electronically Signed: Calli Chahal MD at 11:49 EDT ,
[2024-03-09 11:53] LABS: Anion Gap 5 (5-15); BUN 10 mg/dL (7-18); BUN/Creat Ratio 18.3 RATIO (10-20); Calcium,Total 8.9 mg/dL (8.5-10.1); Chloride 105 mmol/L (98-107); Creatinine, Serum 0.54 mg/dL (0.55-1.02); EST Glomerular Filtration Rate 141 mL/min (>60); Est Glom Filt Rate - Afr Amer 171 mL/min (>60); Estimated Creatinine Clearance 171.12 ml/min; Glucose 103 mg/dL (74-106); Potassium 3.8 mmol/L (3.5-5.1); Sodium Level 138 mmol/L (136-145); Troponin-I HS (w/2H Reflex) < 3 pg/mL (3.0-54.0)
[2024-03-09 12:36] VITALS: BP 125/71; PULSE 82; RESP 18; O2SAT 97
[2024-03-09 13:11] LABS: BNP,B-Type NATRIURETIC PEPTIDE 19.9 pg/mL (0-100)
[2024-03-09 13:20] LABS: Reflex Troponin-HS? (from REC) Y
[2024-03-09 13:26] VITALS: BP 111/68; PULSE 84; RESP 18; TEMP 37.1; O2SAT 94
== END 2024-03-09 13:28 | disposition home or self-care (01) ==
PROVIDERS: Emergency Provider Emergency Medicine; PCP Family Medicine; Visit Provider Emergency Medicine
DX: R07.9 Chest pain, unspecified (principal); K21.9 Gastro-esophageal reflux disease without esophagitis
CPT/HCPCS: 71045; 80048; 83880; 84484; 85025; 93005; 99283; A4216

== ENCOUNTER → 2024-03-25 | Outpatient (CLI) | payer OTHER, SELFPAY ==
[2024-03-25 12:36] LABS: Free T3 2.4 pg/mL (2.18-3.98); T4 Free Direct 0.89 ng/dL (0.76-1.46); Thyroid Stim Hormone (TSH) 1.38 uIU/mL (0.358-3.74)
== END | disposition home or self-care (01) ==
LOC: LAB 11:34
PROVIDERS: PCP Family Medicine; Referring Provider Physician Assistant Medical; Visit Provider Physician Assistant Medical
DX: R00.2 Palpitations (principal); Q22.1 Congenital pulmonary valve stenosis
CPT/HCPCS: 36415; 84439; 84443; 84481

== ENCOUNTER → 2024-04-25 | Outpatient (CLI) | payer OTHER, SELFPAY ==
[2024-05-04 22:43] LABS: HPV Reflexed? NOT INDICATED
== END | disposition home or self-care (01) ==
LOC: LABSPEC 16:22
PROVIDERS: PCP Family Medicine; Referring Provider Nurse Practitioner Women's Health; Visit Provider Nurse Practitioner Women's Health
DX: Z12.4 Encounter for screening for malignant neoplasm of cervix (principal)
CPT/HCPCS: 88175; G0145

== ENCOUNTER → 2024-05-27 | Outpatient (CLI) | payer OTHER, SELFPAY ==
--- NOTE | 2024-05-27 | IMM_PTH ---
PATIENT: KATIE PULLIAM LOC: LAB U#:[id number] AGE/SX: 29/F ROOM: RE05/27/[address]: Dr. Trista Lala DO : 1995 BED: DIS: 05/27/2024 SPEC #: [id number] RECD: 05/31/24 11:31 STATUS: HERBER REQ #: [id number] KASH: 05/27/24 00:[address]: Trista Lala DEPT: IMMUNOHISTOCHEMISTRY RECD BY: Hunter Canchola ENTERED: 05/31/24 11:32 SP TYPE: IMMUNO OTHR DR: Dr. Francisco Stock MD Tissues: A - Endometrium, NOS B - Uterine cervix, NOS Procedures: p16 (initial) KI-67 (add) P16 (add) KI-67 (initial) PHYSICIAN & INSTITUTION [place] [id number] SPECIMEN INFORMATION: Tissue Source: A. ECC, B, 11o'clock biopsy Clinical Info: HGSIL Specimen Number: [id number] A, B CPT code: 62269m0,63667f0 METHODOLOGY: Deparaffinized sections of prefer/formalin-fixed tissue or PAP/DQ stained slides are incubated with monoclonal/polyclonal antibodies/oligonucleotide probes. Localization is made via biotin free immunoperoxidase method. Appropriate controls are performed and reacted as expected. Results on target cell population are indicated in the following table: RESULTS: ANTIBODY / CLONE RESULT Block A P16 (E6H4) positive Ki-67 (30-9) positive, moderate to high Block B P16 (E6H4) positive, block-like Ki-67 (30-9) positive, moderate These tests were developed and their performance characteristics determined by [facility]. They may not have been cleared or approved by the U.S. Food and Drug Administration. The FDA has determined that such clearance or approval is not necessary. The above immunohistochemical/dualISH markers are ordered and reviewed by the Pathologist. INTERPRETATION: A. Endocervical curettings: Dyplastic squamous cell present. B. Cervix, 11o'clock, biopsy: Moderate squamous dysplastic, FRANCISCO II (HSIL). LAVINIA/ 06/01/2024
--- NOTE | 2024-05-27 12:00 | EMB_PTH ---
PATIENT: KATIE PULLIAM LOC: [facility] U#:[id number] AGE/SX: 29/F ROOM: RE05/27/[address]: Dr. Trista Lala DO : 1995 BED: DIS: 05/27/2024 SPEC #: [id number] RECD: 05/27/24 14:37 STATUS: HERBER REAdam #: [id number] KASH: 05/27/24 12:[address]: Trista Lala DEPT: SURGICAL PATHOLOGY RECD BY: Sandra Melchor ENTERED: 05/30/24 09:10 SP TYPE: ENDOM BX/C AYANA DR: Dr. Francisco Stock MD Tissues: A - Endometrium, NOS B - Uterine cervix, NOS Procedures: Surgery Specimen Level IV HEADER OPERATION: Colposcopy PRE-OP DIAGNOSIS: HGSIL TISSUE SUBMITTED: A- KATINA B- 11o'clock biopsy MICROSCOPIC DIAGNOSIS A. Endocervical curettings: Scant strips of benign superficial endocervix and detached dysplastic squamous epithelial cells. B. 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 Mild chronic inflammation. See comment. LAVINIA/ 05/31/2024 COMMENT A, B. Immunohistochemistry ([id number]) supports the above diagnosis. Case has been reviewed in consultation with Dr. Blake who concurs with the above diagnosis. IDC:AM MICROSCOPIC DESCRIPTION Slides are reviewed. GROSS DESCRIPTION A. Received in fixative is a metallic brush with adherent minute fragments of turk-red tissue and labeled with the patient's name and and designated per the requisition as ECC BRUSH. The material is dislodged from the brush and submitted for cell block preparation in one cassette. B. Received in fixative is one container labeled with the patient's name and designated 11o'clock. The specimen consists of one irregular fragment of light turk soft tissue that measures 0.4 x 0.4 x 0.1 cm. The specimen is totally submitted in one cassette. BROCK/ 05/30/2024 TC:0 CPT:52439y4
[2024-05-27 12:45] LABS: hCG Titer Quant., Serum 15 mIU/mL (1-3)
[2024-05-28 08:12] LABS: HCG BETA-SUBUNIT QUANT. 15 mIU/mL (.)
== END | disposition home or self-care (01) ==
PROVIDERS: PCP Family Medicine; Referring Provider Obstetrics & Gynecology; Visit Provider Obstetrics & Gynecology
DX: R87.613 High grade squamous intraepithelial lesion on cytologic smear of cervix (HGSIL) (principal)
CPT/HCPCS: 84702; 88305; 88341; 88342

== ENCOUNTER → 2024-05-29 | Outpatient (CLI) | payer OTHER, SELFPAY ==
[2024-05-29 11:03] LABS: hCG Titer Quant., Serum 25 mIU/mL (1-3)
== END | disposition home or self-care (01) ==
PROVIDERS: PCP Family Medicine; Referring Provider Obstetrics & Gynecology; Visit Provider Obstetrics & Gynecology
DX: N91.2 Amenorrhea, unspecified (principal)
CPT/HCPCS: 36415; 84702

== ENCOUNTER 2024-05-31 19:05 | Emergency (ER) | payer OTHER, SELFPAY ==
[2024-05-31 19:06] VITALS: BP 123/92; PULSE 92; PULSE 93; RESP 20; TEMP 36.2; O2SAT 100; BMI 42.0
--- NOTE | 2024-05-31 19:47 | US_ITS ---
We are attempting to reach an attending provider to discuss findings. An addendum with communication details will be sent when the communication is complete. EXAM: US , TRANSVAGINAL CLINICAL INDICATION: left pain concern for ectopic TECHNIQUE: Real-time transvaginal obstetrical ultrasound of the maternal pelvis and a first trimester with image documentation. Transvaginal imaging was used for better evaluation of the fetus and adnexa. COMPARISON: 12/25/2022 FINDINGS: GESTATION: No IUP is identified. PLACENTA/AMNIOTIC FLUID: Cannot be adequately evaluated due to the early gestational age. UTERUS/CERVIX: The cervix is closed. No myometrial mass. The uterus measures 7.0 x 4.1 x 2.9 cm. The endometrial stripe measures 0.9 cm in thickness. OVARIES: Within the right ovary, there are 2 complex appearing cystic foci measuring up to 1.7 cm, at least one of which appears to be a corpus luteum. The right ovary measures 3.8 x 2.5 x 2.0 cm. The left ovary measures 3.1 x 1.9 x 2.5 cm. No left ovarian mass or cyst. FREE FLUID: No free fluid is identified. US/Transvaginal w/Preg US IMPRESSION: 1. Within the right ovary, there are 2 complex appearing cystic foci, at least one of which appears to be a corpus luteum. These both appear to be discretely intraovarian. Doubt intraovarian ectopic . Consider short-term follow-up and correlation with quantitative hCG. 2. No IUP is identified. Electronically Signed: Wilfredo Carlson DO at 21:08 EDT ,
[2024-05-31] MEDS: 0.9% Normal Saline (1000mL) 1,000 ML 999 ML IV (20:03)
[2024-05-31] MEDS: Morphine 4 MG/ML Syringe IV ×2 (20:03→22:32)
[2024-05-31] MEDS: Ondansetron 4 MG/2 ML Vial IV (20:03)
[2024-05-31 20:20] LABS: Absolute Lymphocyte Count 2.01 X10^3/uL (0.83-4.51); Absolute Neutrophil Count 4.8 X10^3/uL (2.0-7.7); Basophil# 0.04 X10^3/uL; Basophil% 0.5 % (0-1); Color, Urine Yellow (Yellow); Eosinophil# 0.07 X10^3/uL; Eosinophils% 0.9 % (0-5); Glucose, Dipstick Normal (Normal); Hematocrit 41.5 % (37-47); Hemoglobin 13.3 g/dL (12.0-15.0); Ketone-Dipstick Negative (Negative); Leukocyte Esterase-Dipstick 25 /ul (Negative); Lymphocyte # 2.01 X10^3/ul (0.83-4.51); Lymphocyte % 27.2 % (19-41); Mean Corpuscular Hgb 27.9 pg (27.0-32.0); Mean Platelet Vol. 10.9 fl (6.2-12.0); Monocyte# 0.48 X10^3/uL; Monocyte% 6.5 % (0-10); NRBC Flagged by Analyzer 0 % (0-5); Neutrophil # 4.78 X10^3/uL (2.7-7.7); Neutrophil % 64.6 % (47-70); Nitrite-Dipstick Negative (Negative); Occult Blood-Urine 25 /ul (Negative); Platelet Count 312 K/mm3 (150-450); Protein-Dipstick Negative (Negative); RBC Distribution Width CV 13.6 % (11.6-14.6); RBC Distribution Width SD 43.4 fl (35.1-43.9); Red Blood Count 4.77 M/mm3 (4.2-5.4); Urine Bilirubin Dipstick Negative (Negative); Urine Clarity Clear (Clear); Urine Urobilinogen Normal (Normal); Urine pH 6.5 (5.0 - 8.0); White Blood Count 7.4 K/mm3 (4.4-11.0)
[2024-05-31 20:31] LABS: Internal QC Validated? YES +Cl - CLEAR BKGD; Pregnancy, Serum, hCG Quali. POSITIVE Negative
[2024-05-31 20:39] LABS: ALB/GLOB Ratio 0.8 RATIO (0.9-2.4); AST(SGOT) 18 U/L (15-37); Alanine Aminotransfer ALT/SGPT 20 U/L (13-56); Albumin, Serum 3.3 g/dL (3.2-5.0); Alkaline Phosphatase 79 U/L (45-117); Anion Gap 6 (5-15); BUN 11 mg/dL (7-18); BUN/Creat Ratio 17.6 RATIO (10-20); Calcium,Total 8.6 mg/dL (8.5-10.1); Chloride 106 mmol/L (98-107); Creatinine, Serum 0.62 mg/dL (0.55-1.02); EST Glomerular Filtration Rate 121 mL/min (>60); Est Glom Filt Rate - Afr Amer 146 mL/min (>60); Estimated Creatinine Clearance 152.91 ml/min; Glucose 108 mg/dL (74-106); Potassium 3.5 mmol/L (3.5-5.1); Protein, Total 7.3 g/dL (6.4-8.2); Sodium Level 140 mmol/L (136-145)
[2024-05-31 20:53] LABS: Bacteria RARE /hpf (None Seen); Mucous, Urine 0 SEEN /hpf (<or=2+); Red Blood Cells-Urine 0 SEEN /hpf (0-5); Squamous Epithelial Cells - UA 0-5 SEEN /hpf (5-10); White Blood Cells 0-5 SEEN /hpf (0-5)
[2024-05-31 21:11] LABS: hCG Titer Quant., Serum 16 mIU/mL (1-3)
[2024-05-31 21:24] VITALS: BP 128/58; PULSE 82; RESP 18; O2SAT 97
--- NOTE | 2024-05-31 22:50 | ED.VIS.FEGU ---
HPI HPI - Female History of Present Illness Chief Complaint: Vag Bld, Preg Narrative Narrative: Patient is a 29-year-old female G1, P0 with a past medical history of anxiety, depression who presented to the emergency department chief complaint of abdominal pain. Patient states that last Thursday she had a positive test in the [facility]CH[facility]IC[facility] office while having a colposcopy performed. They state that she had that procedure discontinued at that point in time. She states that she had some spotting through the weekend and noted that she has had increasing pain. She states that she has had hCG checks and noted that the 1 was in the 20s and the other 1 went down after this. She states that she had some spotting today and noted that she contacted her FORENSIC TECHNICIAN and advised her to come here for the evaluation management. 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 Wears glasses Wears contact lenses Alcohol use Easy bruising Back pain Difficulty swallowing Diarrhea Non-smoker Leg cramps History of stress test History of echocardiogram Cardiology follow-up encounter Hx of fracture of finger Fertility testing COVID-19 COVID-19 Seasonal allergies Knee pain Fatigue Family history of DVT Abnormal stress test Depression Congenital pulmonic valve stenosis Pancreatitis Heart murmur Headaches, cluster Anxiety Home Medications ?Medication ?Instructions ?Recorded ?Last Taken ?Type ondansetron 4 mg disintegrating 4 mg PO Q6H #14 tabs 05/31/24 Unknown Rx tablet oxycodone-acetaminophen 5 mg-325 1 tab PO Q6H PRN pain 2 days #8 05/31/24 Unknown Rx mg tablet (Endocet) tabs Allergy/AdvReac Type Severity Reaction Status Date / Time adhesive tape Allergy Intermediate abrasion Verified 05/31/24 19:10 Influenza Virus Vaccines Allergy Intermediate Swelling Verified 05/31/24 19:10 norethindrone (From Aygestin) Allergy Intermediate Rash Verified 05/31/24 19:10 hydrocodone (From Vicodin) AdvReac Other Verified 05/31/24 19:10 Family History Father Hypertension Myocardial infarction, Onset Age: 32 Grandfather Hypertension Diabetes Myocardial infarction, Onset Age: 53 x2 CAD (coronary artery disease) Grandmother Kidney failure Liver cirrhosis Heart disease Mother Fibrosis of liver Gluten intolerance Other Arthritis Asthma Bleeding disorder CVA (cerebral vascular accident) Cancer Gout Sudden cardiac Thyroid disorder Surgical History Hx of wisdom tooth extraction History of appendectomy H/O lateral meniscus repair of left knee Hx of cholecystectomy Hx of right breast biopsy Social History Smoking Status: Never smoker alcohol intake: current alcohol intake frequency: holidays/special occasions only details: social substance use type: does not use caffeine: Yes what type of physical activity do you participate in: walking and running frequency: 5-6 times per week seatbelt use: always do you feel safe at home: Yes additional social history: Works at [employer] ROS ROS ED ROS Narrative Constitutional: Denies any fevers, chills, headaches Eyes: Denies changes visual vision blurry vision Cardiovascular: Denies chest pain or palpitations Respiratory: Denies coughing wheezing shortness of breath Abdomen: Complains of abdominal pain as noted above as well as nausea denies vomiting or diarrhea : Complains of positive test with vaginal bleeding and spotting as noted above Neurological: Denies numbness, weakness, tingling EXAM Physical Exam Narrative Exam Narrative: General: Patient was lying in bed rest comfortably did not appear in acute distress Head: Atraumatic, normocephalic Eyes: PERRL bilaterally, EOMI bilaterally, no conjunctival injection noted Neck: Soft, supple, trach midline Cardiovascular: Regular rate and rhythm no murmurs noted Respiratory: Clear to auscultation bilaterally Abdomen: Soft and nondistended, tender to palpation in the left lower quadrant no rebound or guarding on exam Genitourinary: Pelvic exam was performed and no active bleeding noted there was some old blood noted in the vaginal vault no lacerations or lesions noted cervical os was closed Neurological: Patient followed commands knew that she was at [facility] years 2023 Skin: Warm, dry, tact Const Vital Signs: 05/31/24 19:06 05/31/24 19:06 05/31/24 21:24 Temperature 97.1 F L Temperature Source Temporal Pulse Rate 93 92 82 Respiratory Rate 20 H 20 H 18 Blood Pressure 123/92 H 123/92 H 128/58 H Blood Pressure Mean 102 102 81 Pulse Ox 100 100 97 Oxygen Delivery Method Room Air Room Air Room Air MDM MDM MDM Narrative Medical decision making narrative: Patient is a 29-year-old female who presented to the emerged part with chief complaint of abdominal pain in setting of positive test and vaginal spotting. Patient will have a workup performed here on the differential diagnosis includes but not limited to ectopic , intrauterine , menstrual cycle, ruptured cyst. Patient CBC reviewed showed no evidence of leukocytosis white blood count normal at 7.4, hemoglobin 13.3, plate count normal at 312. Patient's sodium normal 140, potassium normal 3.5, creatinine normal at 0.62. Patient's AST and ALT were 18 and 20 respectively. Patient's test was positive and her hCG quantitative level was 16. Patient's urinalysis showed 25 occult blood 25 leukocyte esterase 0-5 white blood cells with no bacteria noted. Patient's ultrasound was reviewed as well and showed no intrauterine identified. Within the right ovary there is 2 complex appearing cystic focus at least 1 of which appears to be corpus luteum. These appear to be discretely intraovarian. Doubt intraovarian ectopic . Consider short-term follow-up correlation with quantitative hCG. Patient's pain on exam is in the left lower quadrant region. Did discuss case with FORENSIC TECHNICIAN Dr. Og who is recommending to have a repeat hCG quantitative level obtained in 2 days and have close follow-up with her in her office. Did discuss this with the patient and she is agreeable to plan she would like to go home this point time. Patient was encouraged return with worsening symptoms or any concerns. Patient is requesting some pain medication as we sent to her pharmacy as well as [employer]. All question concerns answered she is discharged home in stable condition. Lab Data Labs: Laboratory Results - last 24 hr 05/31/24 19:35 WBC 7.4 RBC 4.77 Hgb 13.3 Hct 41.5 MCV 87.0 MCH 27.9 MCHC 32.0 RDW Std Deviation 43.4 RDW Coeff of Amber 13.6 Plt Count 312 MPV 10.9 Immature Gran % (Auto) 0.300 Neut % (Auto) 64.6 Lymph % (Auto) 27.2 [place] % (Auto) 6.5 Eos % (Auto) 0.9 Baso % (Auto) 0.5 Absolute Neuts (auto) 4.8 Absolute Lymphs (auto) 2.01 Nucleated RBC % 0 Sodium 140 Potassium 3.5 Chloride 106 Carbon Dioxide 28.0 Anion Gap 6 BUN 11 Creatinine 0.62 Estim Creat Clear Calc 152.91 Est GFR (MDRD) Af Amer 146 Est GFR (MDRD) Non-Af 121 BUN/Creatinine Ratio 17.6 Glucose 108 H Calcium 8.6 Total Bilirubin 0.30 AST 18 ALT 20 Alkaline Phosphatase 79 Total Protein 7.3 Albumin 3.3 Globulin 4.0 Albumin/Globulin Ratio 0.8 L HCG, Quant 16 H Serum , Qual POSITIVE H Urine Color Yellow Urine Clarity Clear Urine pH 6.5 Ur Specific [place] 1.010 Urine Protein Negative Urine Glucose (UA) Normal Urine Ketones Negative Urine Occult Blood 25 H Urine Nitrite Negative Urine Bilirubin Negative Urine Urobilinogen Normal Ur Leukocyte Esterase 25 H Urine RBC 0 SEEN Urine WBC 0-5 SEEN Ur Squamous Epith Cells 0-5 SEEN Urine Bacteria RARE Urine Mucus 0 SEEN Urine Test Cancelled Radiography Diagnostic Testing: Clinical Impression(s) from Imaging Studies Obstetrics Ultrasound 05/31/24 19:47 IMPRESSION: 1. Within the right ovary, there are 2 complex appearing cystic foci, at least one of which appears to be a corpus luteum. These both appear to be discretely intraovarian. Doubt intraovarian ectopic . Consider short-term follow-up and correlation with quantitative hCG. 2. No IUP is identified. Electronically Signed: Wilfredo Carlson DO at 21:08 EDT , ADDENDUM: 05/31/240 IMPRESSION: 1. Within the right ovary, there are 2 complex appearing cystic foci, at least one of which appears to be a corpus luteum. These both appear to be discretely intraovarian. Doubt intraovarian ectopic . Consider short-term follow-up and correlation with quantitative hCG. 2. No IUP is identified. N.B. : The above Results were Read Back by Wilfredo Carlson DO to Reji Gagnon DO, and understanding confirmed on 05/31/2024 21:18:56 (ET). Electronically Signed: Wilfredo VPhillip Carlson DO at 21:08 EDT , Discharge Plan Triage Chief Complaint: Vag Bld, Preg Other Complaint: Abd Pain ED Provider: Reji Gagnon Dx/Rx/DC Orders Clinical Impression: Abdominal pain affecting , Vaginal spotting Prescriptions: New oxycodone-acetaminophen [Endocet] 5-325 mg tablet 1 tab PO Q6H PRN (Reason: pain) 2 Days Qty: 8 0RF ondansetron 4 mg tablet,disintegrating 4 mg PO Q6H Qty: 14 0RF Primary Care Provider: Francisco Stock Referrals: Francisco Stock MD [Primary Care Provider] - Activity Restrictions/Additional Instructions: Follow-up with your FORENSIC TECHNICIAN i in the outpatient setting. Have a repeat hCG level in 2 days. Return with worsening symptoms or any concerns. Prescription was sent to your pharmacy for pain control and antiemetics. Do not operate anything out of the influence of these. Print Language: Amharic Disposition Disposition: Home, Self Care
[2024-05-31] MEDS: HYDROcodone Bitartrate/Apap 5/325 Tablet PO (23:24)
[2024-05-31] MEDS: Ondansetron ODT 4 MG Tablet PO (23:24)
[2024-05-31 23:25] VITALS: BP 123/62; PULSE 79; RESP 18; TEMP 36.8; O2SAT 100
== END 2024-05-31 23:26 | disposition home or self-care (01) ==
PROVIDERS: Emergency Provider Emergency Medicine; PCP Family Medicine; Visit Provider Emergency Medicine
DX: O99.891 Other specified diseases and conditions complicating pregnancy (principal); R10.32 Left lower quadrant pain; O26.859 Spotting complicating pregnancy, unspecified trimester; Z3A.00 Weeks of gestation of pregnancy not specified
CPT/HCPCS: 76817; 80053; 81001; 84702; 84703; 85025; 96361; 96374; 96375; 96376; 99285; J7030; A4216; J2405

== ENCOUNTER → 2024-05-31 | Outpatient (CLI) | payer OTHER, SELFPAY ==
[2024-05-31 08:17] LABS: hCG Titer Quant., Serum 18 mIU/mL (1-3)
== END | disposition home or self-care (01) ==
LOC: LAB 07:49
PROVIDERS: PCP Family Medicine; Visit Provider Obstetrics & Gynecology
DX: N91.2 Amenorrhea, unspecified (principal)
CPT/HCPCS: 84702

== ENCOUNTER → 2024-06-02 | Outpatient (CLI) | payer OTHER, SELFPAY ==
[2024-06-02 08:18] LABS: hCG Titer Quant., Serum 5 mIU/mL (1-3)
== END | disposition home or self-care (01) ==
LOC: LAB 07:58
PROVIDERS: Obstetrics & Gynecology; PCP Family Medicine; Visit Provider Obstetrics & Gynecology
DX: N93.9 Abnormal uterine and vaginal bleeding, unspecified (principal)
CPT/HCPCS: 36415; 84702

== ENCOUNTER → 2024-06-04 | Outpatient (CLI) | payer OTHER, SELFPAY ==
[2024-06-04 12:12] LABS: hCG Titer Quant., Serum 1 mIU/mL (1-3)
== END | disposition home or self-care (01) ==
LOC: LAB 11:21
PROVIDERS: PCP Family Medicine; Referring Provider Obstetrics & Gynecology; Visit Provider Obstetrics & Gynecology
DX: O03.9 Complete or unspecified spontaneous abortion without complication (principal)
CPT/HCPCS: 36415; 84702

== ENCOUNTER 2024-06-28 10:41 | Day surgery (SDC) | payer OTHER, SELFPAY ==
--- NOTE | 2024-06-27 08:06 | PCM.HP.BLA ---
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 Allergies adhesive tape Allergy (Intermediate, Verified 06/20/24 15:57) abrasion Influenza Virus Vaccines Allergy (Intermediate, Verified 06/20/24 15:57) Swellingnorethindrone (From Aygestin) Allergy (Intermediate, Verified 06/20/24 15:57) Rashhydrocodone (From Vicodin) Adverse Reaction (Verified 06/20/24 15:57) Other Medications ?Medication ?Instructions ?Recorded ?Confirmed ?Type albuterol sulfate 90 mcg/actuation 2 puff inhalation Q4H PRN 06/16/24 06/20/24 History aerosol inhaler shortness of breath or wheezing multivitamin (Daily Multi-Vitamin 1 tab PO DAILY 06/16/24 06/20/24 History tablet) Patient : No : No PFSH Medical History Vasovagal response Vasovagal near syncope Near syncope 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 Wears glasses Wears contact lenses Alcohol use Easy bruising Back pain Difficulty swallowing Diarrhea Non-smoker Leg cramps History of stress test History of echocardiogram Cardiology follow-up encounter Hx of fracture of finger Fertility testing COVID-19 COVID-19 Seasonal allergies Knee pain Fatigue Family history of DVT Abnormal stress test Depression Congenital pulmonic valve stenosis Pancreatitis Heart murmur Headaches, cluster Anxiety Surgical History Hx of esophagogastroduodenoscopy Hx of wisdom tooth extraction History of appendectomy H/O lateral meniscus repair of left knee Hx of cholecystectomy Hx of right breast biopsy Family History Father Hypertension Myocardial infarction, Onset Age: 32Grandfather Hypertension Diabetes Myocardial infarction, Onset Age: 53 x2 CAD (coronary artery disease)Grandmother Kidney failure Liver cirrhosis Heart diseaseMother Fibrosis of liver Gluten intoleranceOther Arthritis Asthma Bleeding disorder CVA (cerebral vascular accident) Cancer Gout Sudden cardiac Thyroid disorder Social History Smoking Status: Never smoker alcohol intake: current alcohol intake frequency: holidays/special occasions only details: social substance use type: does not use caffeine: Yes what type of physical activity do you participate in: walking and running frequency: 5-6 times per week seatbelt use: always do you feel safe at home: Yes 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 planning LEEP Female Reproductive History Menopausal Symptoms: No night sweats History 1 Elective abortions Hx Para 0 Spontaneous abortions 1 Hx # Term Pregnancies Ectopic pregnancies Hx # Pregnancies Multiple births # of living children ROS Const Constitutional: Denies fatigue, night sweats, weight gain or weight loss ENT ENT: Reports system reviewed and no additional complaints, except as documented Cardio Card: Denies chest pain Resp Resp: Denies cough or dyspnea GI GI: Reports as per HPI; Denies abdominal pain, constipation, nausea or vomiting : Denies nipple discharge, urinary frequency, urinary incontinence, urinary hesitancy, urinary urgency, vaginal discharge, vaginal dryness, vaginal odor or vaginal pruritus Musc Musc: Denies arthralgias, back pain or muscle weakness Skin Skin/Breast: Denies alopecia, change in hair, dry skin, breast mass, breast pain, breast skin changes or nipple discharge Neuro Neuro: Reports system reviewed and no additional complaints, except as documented Psych Psych: Reports system reviewed and no additional complaints, except as documented Endo Endo: Denies cold intolerance, excessive sweating, heat intolerance or polydipsia Juan/Lymph Hematologic/Lymphatic: Denies easy bleeding, Denies easy bruising and Denies lymphadenopathy Exam Const General: cooperative, healthy appearing, comfortable and no acute distress Orientation: alert HENMT Head: normal to inspection and normocephalic Ears: hearing grossly normal bilaterally and external ears normal Nose: external nose normal and nares normal Face and sinus: normal facial exam Neck Neck: normal visual inspection and no lymphadenopathy Thyroid: thyroid normal Chest Chest palpation & inspection: normal inspection of the chest Resp Effort & Inspection: normal respiratory effort Cardio Rate: regular rate GI Inspection: normal to inspection and non-distended Palpation: soft and no hepatosplenomegaly Musc Other: gross motor intact no deficits, full bilateral strength Skin General: no rashes or lesions noted Neuro General: patient alert, patient awake, moves all extremities and no focal motor deficits Motor: muscle tone normal throughout Extrem General: normal to inspection and no pedal edema Psych Appearance: grossly normal Mental Status: mental status grossly normal Affect: normal affect Speech and Movement: speech and movement normal Coding Level of Care Code No Charge Diagnoses FRANCISCO III (cervical intraepithelial neoplasia grade III) with severe dysplasia D06.9 Assessment and Plan Assessment and Plan (1) FRANCISCO III (cervical intraepithelial neoplasia grade III) with severe dysplasia: Status: Acute Comment: plan LEEP Plan After discussing the patient's diagnosis and treatment plan options, patient wishes to proceed with surgical management. I have discussed with the patient the risks, benefits, and alternatives of the procedure which include but are not limited to risks of anesthesia, bleeding, infection, possible damage to bowel, bladder, or surrounding vasculature which could lead to additional surgery to evaluate any complications. Patient agrees to procedure and wishes to proceed. ACOG/uptodate references given for additional information regarding procedure.
[2024-06-28] VITALS (8 sets, daily range): BP systolic 111–134; BP diastolic 61–112; PULSE 81–98; RESP 12–20; TEMP 36.2–37.2; O2SAT 99–100; BMI 42.8
--- NOTE | 2024-06-28 | IMM_PTH ---
PATIENT: KATIE PULLIAM LOC: [facility] [place] U#:[id number] AGE/SX: 29/F ROOM: RE06/28/[address]: Dr. Cintia Mcgee MD : 1995 BED: DIS: 06/28/2024 SPEC #: [id number] RECD: 06/30/24 12:12 STATUS: HERBER REQ #: [id number] KASH: 06/28/24 00:[address]: Cintia Mcgee DEPT: IMMUNOHISTOCHEMISTRY RECD BY: Hunter Canchola ENTERED: 06/30/24 12:12 SP TYPE: IMMUNO OTHR DR: Dr. Francisco Stock MD Tissues: A - Uterine cervix, NOS Procedures: p16 (initial) KI-67 (add) PHYSICIAN & INSTITUTION [place] [id number] SPECIMEN INFORMATION: Tissue Source: A- Cervix Clinical Info: FRANCISCO II with severe dysplasia Specimen Number: [id number] CPT code: 33848,66083y3 METHODOLOGY: Deparaffinized sections of prefer/formalin-fixed tissue or PAP/DQ stained slides are incubated with monoclonal/polyclonal antibodies/oligonucleotide probes. Localization is made via biotin free immunoperoxidase method. Appropriate controls are performed and reacted as expected. Results on target cell population are indicated in the following table: RESULTS: ANTIBODY / CLONE RESULT Block A 1 P16 (E6H4) negative Ki-67 (30-9) negative Block A2 P16 (E6H4) negative Ki-67 (30-9) negative Block A3 P16 (E6H4) negative Ki-67 (30-9) negative Block A4 P16 (E6H4) positive, focal, patchy Ki-67 (30-9) positive, low These tests were developed and their performance characteristics determined by [facility]. They may not have been cleared or approved by the U.S. Food and Drug Administration. The FDA has determined that such clearance or approval is not necessary. The above immunohistochemical/dualISH markers are ordered and reviewed by the Pathologist. INTERPRETATION: A. Cervix, leep colonization: Focal HPV change suspected. AM:felice 07/01/2024
[2024-06-28] MEDS: Lactated Ringers 1,000 ML 15 ML IV (11:25)
[2024-06-28 11:42] LABS: Absolute Lymphocyte Count 1.61 X10^3/uL (0.83-4.51); Absolute Neutrophil Count 4.2 X10^3/uL (2.0-7.7); Basophil# 0.04 X10^3/uL; Basophil% 0.6 % (0-1); Eosinophil# 0.09 X10^3/uL; Eosinophils% 1.4 % (0-5); Hematocrit 40.1 % (37-47); Hemoglobin 13.1 g/dL (12.0-15.0); Lymphocyte # 1.61 X10^3/ul (0.83-4.51); Lymphocyte % 25.4 % (19-41); Mean Corp Hgb Conc 32.7 g/dL (32-36); Mean Corpuscular Hgb 27.9 pg (27.0-32.0); Mean Corpuscular Volume 85.3 fL (81-99); Mean Platelet Vol. 10.5 fl (6.2-12.0); Monocyte# 0.38 X10^3/uL; NRBC Flagged by Analyzer 0 % (0-5); Neutrophil # 4.17 X10^3/uL (2.7-7.7); Platelet Count 296 K/mm3 (150-450); RBC Distribution Width CV 13.5 % (11.6-14.6); RBC Distribution Width SD 42.2 fl (35.1-43.9); White Blood Count 6.3 K/mm3 (4.4-11.0)
--- NOTE | 2024-06-28 11:47 | PRE.ANES_ITS ---
ASA Classification* ASA Classification ASA Classification: 3 Assessment & Plan Anesthesia* Anesthesia Assessment Anesthesia Assessment: Discussed sedation and/or anesthesia options, risks, benefits, and alternatives with patient/parents/legal guardian/POA. Questions invited. The patient/parents/legal guardian/POA seems to understand and agrees to proceed with anesthesia plan. Reviewed the physical assessment, medical history, allergy history and patient home medications list prior to surgery/procedure/anesthetic and documented any changes. Performed airway and anesthesia risk assessments. Anesthesia Type Anesthesia Type: MAC History Source History Obtained from:: Patient and Chart Anesthesia Focused Assessment* Temperature: 98.9 F Pulse Rate: 94 Blood Pressure: 124/82 Respiratory Rate: 16 Pulse Ox: 100 Oxygen Delivery Method: Room Air Airway Assessment Mouth opens: >3 cm Mallampati Score: II Teeth Condition: Intact Neck Range of motion (ROM): Full ROM Focused Labs Anesthesia Preop lab: CBC WBC 6.3 K/mm3 (4.4-11.0) 06/28/24 11:28 RBC 4.70 M/mm3 (4.2-5.4) 06/28/24 11:28 Hgb 13.1 g/dL (12.0-15.0) 06/28/24 11:28 Hct 40.1 % (37-47) 06/28/24 11:28 Plt Count 296 K/mm3 (150-450) 06/28/24 11:28 CHEMISTRY Potassium 3.5 mmol/L (3.5-5.1) 05/31/24 19:35 Sodium 140 mmol/L (136-145) 05/31/24 19:35 Magnesium 2.1 mg/dL (1.6-2.6) 03/06/22 14:19 Phosphorus 3.9 mg/dL (2.5-4.9) 06/18/23 03:10 BUN 11 mg/dL (7-18) 05/31/24 19:35 Creatinine 0.62 mg/dL (0.55-1.02) 05/31/24 19:35 Glucose 108 mg/dL (74-106) H 05/31/24 19:35 TSH 1.38 uIU/mL (0.358-3.74) 03/25/24 11:36 COAG HCG, Quant 1 mIU/mL (1-3) 06/04/24 11:23 Urine Test Negative Negative 03/19/23 08:10 [facility] Clinic Positive 05/27/24 11:56 Pre-Assessment Diagnosis/Proposed Procedure Planned Operative Procedure(s): Leep Cone Anesthesia History 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 When Was Last Pacemaker Check QUESTION #4 FULL TEXT: You/Your Family Experience fever (hyperthermia) with Anesthesia Last Oral Intake Last Oral intake: Last Oral Intake NPO since 23:45 06/28/24 11:06 Meds taken in AM with sips of No 06/28/24 11:06 water? Meds patient instructed to take am of surgery PONV PONV - mushroom growing supervisor: PONV - mushroom growing supervisor Female Yes 06/16/24 10:04 HX of Motion Sickness No 06/16/24 10:04 HX of N/V After Surgery No 06/16/24 10:04 Non-Smoker Yes 06/16/24 10:04 Duration of Surgery greater No 06/16/24 10:04 than 60 minutes Number of Risk Factors 2 06/16/24 10:04 PONV Score Moderate Risk 06/16/24 10:04 Height & Weight Height & Weight: Anesthesia: Height & Weight Height 5 ft 2 in 06/28/24 11:06 Weight: 106.2 kg 06/28/24 11:06 Body Mass Index (BMI) 42.8 06/28/24 11:06 Respiratory Assessment Respiratory Assessment - mushroom growing supervisor: Respiratory Tract Infection Hx - mushroom growing supervisor Hx Respiratory Tract Infection No 06/16/24 10:04 STOP Sleep Apnea STOP Sleep Apnea - mushroom growing supervisor: STOP Sleep Apnea - mushroom growing supervisor Hx Hypertension No 06/16/24 10:04 Hx Sleep Apnea No 06/16/24 10:04 CPAP No 06/16/24 10:04 BIPAP Do you snore loudly (louder No 06/16/24 10:04 than talking or can be heard Do you often feel tired/ No 06/16/24 10:04 fatigued/ sleepy during daytime? Has anyone observed you stop No 06/16/24 10:04 breathing during sleep? STOP Results Negative 06/16/24 10:04 QUESTION #5 FULL TEXT : Do you snore loudly (louder than talking or can be heard through closed doors)? 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 Specify any problems Hx of Preganancy in last 3 Yes 06/16/24 10:04 Months Nurse Filling Out Transfusion VCHRISTIN 06/16/24 10:04 & Questions: Date: 06/16/24 06/16/24 10:04 Time: 10:05 06/16/24 10:04 Patient unable to answer at this time (ie. 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 Wears glasses Wears contact lenses Alcohol use Easy bruising Back pain Difficulty swallowing Diarrhea Non-smoker Leg cramps History of stress test History of echocardiogram Cardiology follow-up encounter Hx of fracture of finger Fertility testing COVID-19 COVID-19 Seasonal allergies Knee pain Fatigue Family history of DVT Abnormal stress test Depression Congenital pulmonic valve stenosis Pancreatitis Heart murmur Headaches, cluster Anxiety Home Medications ?Medication ?Instructions ?Recorded ?Last Taken ?Type albuterol sulfate 90 mcg/actuation 2 puff inhalation Q4H PRN 06/16/24 Unknown History aerosol inhaler shortness of breath or wheezing multivitamin (Daily Multi-Vitamin 1 tab PO DAILY 06/16/24 Unknown History tablet) Allergy/AdvReac Type Severity Reaction Status Date / Time adhesive tape Allergy Intermediate abrasion Verified 06/28/24 11:05 Influenza Virus Vaccines Allergy Intermediate Swelling Verified 06/28/24 11:05 norethindrone (From Aygestin) Allergy Intermediate Rash Verified 06/28/24 11:05 hydrocodone (From Vicodin) AdvReac Other Verified 06/28/24 11:05 Family History Father Hypertension Myocardial infarction, Onset Age: 32 Grandfather Hypertension Diabetes Myocardial infarction, Onset Age: 53 x2 CAD (coronary artery disease) Grandmother Kidney failure Liver cirrhosis Heart disease Mother Fibrosis of liver Gluten intolerance Other Arthritis Asthma Bleeding disorder CVA (cerebral vascular accident) Cancer Gout Sudden cardiac Thyroid disorder Surgical History Hx of esophagogastroduodenoscopy Hx of wisdom tooth extraction History of appendectomy H/O lateral meniscus repair of left knee Hx of cholecystectomy Hx of right breast biopsy Social History Smoking Status: Never smoker alcohol intake: current alcohol intake frequency: holidays/special occasions only details: social substance use type: does not use caffeine: Yes what type of physical activity do you participate in: walking and running frequency: 5-6 times per week seatbelt use: always do you feel safe at home: Yes additional social history: Works at [employer] Lab Review of Systems (Anesthesia) ROS Narrative System reviewed and no additional complaints, except as documented.
[2024-06-28 11:48] LABS: Internal QC Validated? YES +Cl - CLEAR BKGD; Pregnancy, Urine Negative Negative
--- NOTE | 2024-06-28 12:35 | CONE_PTH ---
PATIENT: KATIE PULLIAM LOC: [facility] [place] U#:[id number] AGE/SX: 29/F ROOM: RE06/28/[address]: Dr. Cintia Mcgee MD : 1995 BED: DIS: 06/28/2024 SPEC #: [id number] RECD: 06/29/24 09:09 STATUS: HERBER REAdam #: [id number] KASH: 06/28/24 12:[address]: Cintia Mcgee DEPT: SURGICAL PATHOLOGY RECD BY: Sandra Melchor ENTERED: 06/29/24 11:48 SP TYPE: Leep Cone AYANA DR: Dr. Francisco Stock MD Tissues: A - UTERINE CERVIX LEEP B - Endocervical Procedures: Surgery Specimen Level IV Surgery Specimen Level V HEADER OPERATION: Leep cone PRE-OP DIAGNOSIS: FRANCISCO II with severe dysplasia TISSUE SUBMITTED: A- Cervix, B- Endocervical curettings MICROSCOPIC DIAGNOSIS A. Cervix, LEEP colonization: Reactive and reparative epithelial changes and mild chronic inflammation. Focal HPV change suspected. See comment. B. Endocervix, curettings: Fragments of benign lower uterine endometrium and endocervix. No evidence of dysplasia. AM/ 06/30/2024 COMMENT A. Immunohistochemistry ([id number]) for surrogate HPV marker (p16) supports the above diagnosis. Reference is made to the patient's previous cervical biopsy ([id number]) in which moderate squamous dysplasia was identified. Case has been reviewed in consultation with Dr. Villeda who concurs with the above diagnosis. IDC:SJ MICROSCOPIC DESCRIPTION Slides are reviewed. GROSS DESCRIPTION A. Received in fixative is one container labeled with the patient's name and designated Cervix. The specimen consists of a turk indurated piece of tissue consistent with leep colonization measuring 2.5 x 2.0 x 0.5cm. No mucosal lesion is identified. Non-mucosal surface is inked black. Also present in the container is a detached piece of turk indurated tissue measuring 1.1 x 0.5 x 0.1cm. No mucosal lesion is identified. Non-mucosal surface is inked black. Endocervical margin is inked black. Both pieces are serially sectioned and submitted entirely in five cassettes as follows: 1-4- leep colonization (each cassette containing one quadrant), 5- smaller piece of tissue. B. Received in fixative is one container labeled with the patient's name and designated Endocervical curettings. The specimen consists of multiple irregular fragments of turk mucoid tissue that in aggregate measure 0.5 x 0.5 x 0.1 cm. The specimen is totally submitted in one cassette. Sintia 06/29/2024 TC:3 CPT:04872,48122
--- NOTE | 2024-06-28 12:57 | PCM.OPRPT ---
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: (2) Menorrhagia with irregular cycle: (3) Pelvic pain: Report of Operation Date of Procedure: 06/28/24 Pre-Operative Diagnosis: see problem list Post-Operative Diagnosis: same Surgery/Procedure Performed:: LEEP procedure Description of Surgical Findings:: grossly nl cervix Surgeon: Cintia Mcgee bdc manager: None Type of Anesthesia: General and Local Special Medications: monsels paste Specimen's removed: cervix ecc Drains: none Estimated Blood Loss (mL): 025 Fluids Replaced: crystalloid Description of Procedure: Paracervical block was placed with 1% lidocaine and using a loop electrode the outer part of the cervix was removed including the squamocolumnar junction. Endocervical curettings were taken and the base of the cervix was cauterized around the borders and the base to obtain excellent hemostasis. Monsel's paste was placed and patient was awoken and taken recovery in stable condition. Grafts/Implants Used: none Procedure Start Time: 02:00 Procedure Stop Time: 02:09 Complications none Admit VTE Documentation VTE Present on Admission: No VTE Mechan Device Prophylaxis: SCD's Procedures Urinary/Genital 52xxx-59xxx: 31001 LEEP
--- NOTE | 2024-06-28 13:09 | DCINST_ITS ---
Discharge Instructions Diet Discharge Diet: No restrictions Activity Discharge Activity: Return to Normal Activity and May Not Drive (while taking narcotic pain medications.) May resume sexual activity in: 4 weeks (Nothing in the vagina for 4 weeks.) Dressing / Incision Call your doctor if you observe: Fever of 101 or Higher and Using more than 1 pad per hour Follow Up Care Please Follow Up With: Cintia Mcgee MD When: Call [phone] for follow-up appointment. Test Results: Test results from this visit will be discussed in further detail at your follow- up appointment, if applicable. Discharge Plan Admission Attending Provider: Cintia Mcgee Primary Care Provider: Francisco Stock Instructions Print Language: Estonian Discharge Orders/Prescriptions Prescriptions: No Action albuterol sulfate 90 mcg/actuation HFA aerosol inhaler 2 puff inhalation Q4H PRN (Reason: shortness of breath or wheezing) multivitamin [Daily Multi-Vitamin] Tablet 1 tab PO DAILY Referrals / Follow Up: Francisco Stock MD [Primary Care Provider] - Disposition Disposition (needs filled in before D/C Order can be placed): Home, Self Care
[2024-06-28] MEDS: Lidocaine 1% (20 ml mdv) 20 ML Vial (13:21)
--- NOTE | 2024-06-28 14:22 | PCM.POST.ANE ---
Anesthesia: Postop Eval I Current Vital Signs Temperature: 97.4 F Pulse Rate: 98 Blood Pressure: 122/104 Respiratory Rate: 20 Pulse Ox: 99 Assessment Airway patent: Yes Spontaneous unlabored respirations: Yes nausea: No Vomiting: No Anesthesia Complication: No Fluid Hydration Crystalloid volume administer (ml): 1,000 Total IV fluid infused: 1,000 Progress Note Anesthesia document: Postop Eval 1 completed: Yes
--- NOTE | 2024-06-28 14:36 | POSTOPAN2_ITS ---
Anesthesia Postop Eval I Sum Postop Eval Completion status Anesthesia document: Postop Eval 1 completed: Yes Anesthesia Postop Eval I Summary Anesthesia Postop Eval I Summary: Anesthesia Postop Eval I: Assessment Summary Airway patent Yes 06/28/24 14:22 ELEMENTARY ELL TEACHER.CSIR Spontaneous unlabored Yes 06/28/24 14:22 ELEMENTARY ELL TEACHER.CSIR respirations Mental status nausea No 06/28/24 14:22 ELEMENTARY ELL TEACHER.CSIR Vomiting No 06/28/24 14:22 ELEMENTARY ELL TEACHER.CSIR Anesthesia Postop Eval I: Fluid Summary Crystalloid volume administer 1,000 06/28/24 14:22 ELEMENTARY ELL TEACHER.CSIR (ml) Colloids volume administered ( ml) Blood Product volume administered (ml) Total IV fluid infused 1,000 06/28/24 14:22 ELEMENTARY ELL TEACHER.CSIR Anesthesia Postop Eval I: Summary Notes Anesthesia Complication No 06/28/24 14:22 ELEMENTARY ELL TEACHER.CSIR Anesthesia Complication Comment: Post-operative progress note Anesthesia: Postop Eval II Evaluation Mental status: Awake Pain Level: 0 nausea: No Vomiting: No
--- NOTE | 2024-06-28 14:36 | PCM.POSTANE2 ---
Anesthesia Postop Eval I Sum Postop Eval Completion status Anesthesia document: Postop Eval 1 completed: Yes Anesthesia Postop Eval I Summary Anesthesia Postop Eval I Summary: Anesthesia Postop Eval I: Assessment Summary Airway patent Yes 06/28/24 14:22 SHOT COAT TENDER.CSIR Spontaneous unlabored Yes 06/28/24 14:22 SHOT COAT TENDER.CSIR respirations Mental status nausea No 06/28/24 14:22 SHOT COAT TENDER.CSIR Vomiting No 06/28/24 14:22 SHOT COAT TENDER.CSIR Anesthesia Postop Eval I: Fluid Summary Crystalloid volume administer 1,000 06/28/24 14:22 SHOT COAT TENDER.CSIR (ml) Colloids volume administered ( ml) Blood Product volume administered (ml) Total IV fluid infused 1,000 06/28/24 14:22 SHOT COAT TENDER.CSIR Anesthesia Postop Eval I: Summary Notes Anesthesia Complication No 06/28/24 14:22 SHOT COAT TENDER.CSIR Anesthesia Complication Comment: Post-operative progress note Anesthesia: Postop Eval II Evaluation Mental status: Awake Pain Level: 0 nausea: No Vomiting: No
== END 2024-06-28 15:19 | disposition home or self-care (01) ==
LOC: SDC 10:45 → AC 10:45
PROVIDERS: PCP Family Medicine; Referring Provider Obstetrics & Gynecology; Visit Provider Obstetrics & Gynecology
PROC: 0UBC7ZZ Excision of Cervix, Via Natural or Artificial Opening (ICD-10-PCS; CPT 57522; principal; 2024-06-28 12:20)
DX: R10.2 Pelvic and perineal pain (principal); D06.9 Carcinoma in situ of cervix, unspecified; N92.1 Excessive and frequent menstruation with irregular cycle; Z86.16 Personal history of COVID-19; Z90.49 Acquired absence of other specified parts of digestive tract; Z82.49 Family history of ischemic heart disease and other diseases of the circulatory system; F32.9 Major depressive disorder, single episode, unspecified; Z31.41 Encounter for fertility testing; Q22.1 Congenital pulmonary valve stenosis
CPT/HCPCS: 57522; 00940; 81025; 85025; 86850; 86900; 86901; 88305; 88307; 88341; 88342; J7120; J2405

== ENCOUNTER → 2024-07-05 | Outpatient (CLI) | payer OTHER, SELFPAY ==
[2024-07-05 11:24] LABS: ALB/GLOB Ratio 0.9 RATIO (0.9-2.4); AST(SGOT) 15 U/L (15-37); Alanine Aminotransfer ALT/SGPT 22 U/L (13-56); Albumin, Serum 3.2 g/dL (3.2-5.0); Alkaline Phosphatase 74 U/L (45-117); Anion Gap 7 (5-15); BUN 13 mg/dL (7-18); BUN/Creat Ratio 20.5 RATIO (10-20); Calcium,Total 8.9 mg/dL (8.5-10.1); Chloride 106 mmol/L (98-107); Cholesterol 162 mg/dL (200); Creatinine, Serum 0.64 mg/dL (0.55-1.02); EST Glomerular Filtration Rate 118 mL/min (>60); Est Glom Filt Rate - Afr Amer 143 mL/min (>60); Globulin 3.7 g/dL (2.2-4.2); Glucose 97 mg/dL (74-106); High Density Lipoprotein 67 mg/dL; Potassium 3.9 mmol/L (3.5-5.1); Protein, Total 6.9 g/dL (6.4-8.2); Sodium Level 137 mmol/L (136-145); Triglycerides 82 mg/dL; Very Low Density Lipoprotein 16 mg/dL (5-40)
[2024-07-05 12:38] LABS: Hemoglobin A1c 5.1 % (3.8-5.6)
[2024-07-06 12:10] LABS: Insulin Level 14.4 uIU/mL (2.6-24.9)
== END | disposition home or self-care (01) ==
LOC: LAB 07:51
PROVIDERS: PCP Family Medicine; Visit Provider Family Medicine
DX: R63.5 Abnormal weight gain (principal); Z13.220 Encounter for screening for lipoid disorders
CPT/HCPCS: 36415; 80053; 80061; 82533; 83036; 83525

== ENCOUNTER → 2024-07-19 | Outpatient (CLI) | payer OTHER, SELFPAY ==
[2024-07-19 12:18] LABS: Absolute Lymphocyte Count 4.34 X10^3/uL (0.83-4.51); Absolute Neutrophil Count 8.9 X10^3/uL (2.0-7.7); Basophil# 0.08 X10^3/uL; Basophil% 0.5 % (0-1); Eosinophil# 0.17 X10^3/uL; Eosinophils% 1.2 % (0-5); Hemoglobin 14.5 g/dL (12.0-15.0); Lymphocyte # 4.34 X10^3/ul (0.83-4.51); Lymphocyte % 29.8 % (19-41); Mean Corp Hgb Conc 32.2 g/dL (32-36); Mean Corpuscular Hgb 27.8 pg (27.0-32.0); Mean Corpuscular Volume 86.4 fL (81-99); Mean Platelet Vol. 10.5 fl (6.2-12.0); Monocyte# 0.82 X10^3/uL; Monocyte% 5.6 % (0-10); NRBC Flagged by Analyzer 0 % (0-5); Neutrophil # 8.91 X10^3/uL (2.7-7.7); Neutrophil % 61.1 % (47-70); Platelet Count 399 K/mm3 (150-450); RBC Distribution Width CV 13.4 % (11.6-14.6); RBC Distribution Width SD 41.4 fl (35.1-43.9); Red Blood Count 5.21 M/mm3 (4.2-5.4); White Blood Count 14.6 K/mm3 (4.4-11.0)
[2024-07-19 14:19] LABS: ALB/GLOB Ratio 0.8 RATIO (0.9-2.4); AST(SGOT) 17 U/L (15-37); Alanine Aminotransfer ALT/SGPT 39 U/L (13-56); Albumin, Serum 3.4 g/dL (3.2-5.0); Alkaline Phosphatase 73 U/L (45-117); Anion Gap 7 (5-15); BUN 16 mg/dL (7-18); BUN/Creat Ratio 26.2 RATIO (10-20); Calcium,Total 9.1 mg/dL (8.5-10.1); Chloride 99 mmol/L (98-107); Creatinine, Serum 0.61 mg/dL (0.55-1.02); EST Glomerular Filtration Rate 124 mL/min (>60); Est Glom Filt Rate - Afr Amer 150 mL/min (>60); Globulin 4.1 g/dL (2.2-4.2); Glucose 103 mg/dL (74-106); Potassium 4.2 mmol/L (3.5-5.1); Protein, Total 7.5 g/dL (6.4-8.2); Sodium Level 133 mmol/L (136-145)
== END | disposition home or self-care (01) ==
LOC: VSLAB 12:00
PROVIDERS: PCP Family Medicine; Visit Provider Nurse Practitioner Family
DX: U09.9 Post COVID-19 condition, unspecified (principal)
CPT/HCPCS: 36415; 80053; 85025

== ENCOUNTER → 2024-07-28 | Outpatient (CLI) | payer OTHER, SELFPAY ==
[2024-07-28 08:16] LABS: Absolute Lymphocyte Count 2.18 X10^3/uL (0.83-4.51); Absolute Neutrophil Count 5.4 X10^3/uL (2.0-7.7); Basophil# 0.03 X10^3/uL; Basophil% 0.4 % (0-1); Eosinophil# 0.07 X10^3/uL; Eosinophils% 0.9 % (0-5); Hematocrit 40.1 % (37-47); Hemoglobin 13.3 g/dL (12.0-15.0); Lymphocyte # 2.18 X10^3/ul (0.83-4.51); Lymphocyte % 26.8 % (19-41); Mean Corp Hgb Conc 33.2 g/dL (32-36); Mean Corpuscular Hgb 28.5 pg (27.0-32.0); Mean Corpuscular Volume 85.9 fL (81-99); Mean Platelet Vol. 10.4 fl (6.2-12.0); Monocyte# 0.43 X10^3/uL; Monocyte% 5.3 % (0-10); NRBC Flagged by Analyzer 0 % (0-5); Neutrophil # 5.38 X10^3/uL (2.7-7.7); Neutrophil % 66.2 % (47-70); Platelet Count 296 K/mm3 (150-450); RBC Distribution Width CV 13.6 % (11.6-14.6); RBC Distribution Width SD 42.2 fl (35.1-43.9); Red Blood Count 4.67 M/mm3 (4.2-5.4); White Blood Count 8.1 K/mm3 (4.4-11.0)
[2024-07-28 08:39] LABS: Anion Gap 6 (5-15); BUN 12 mg/dL (7-18); BUN/Creat Ratio 18.4 RATIO (10-20); Calcium,Total 9.1 mg/dL (8.5-10.1); Chloride 106 mmol/L (98-107); Creatinine, Serum 0.65 mg/dL (0.55-1.02); EST Glomerular Filtration Rate 114 mL/min (>60); Est Glom Filt Rate - Afr Amer 138 mL/min (>60); Glucose 118 mg/dL (74-106); Potassium 3.7 mmol/L (3.5-5.1); Sodium Level 140 mmol/L (136-145)
--- NOTE | 2024-07-28 12:25 | RAD_ITS ---
HISTORY: SPRAIN. TECHNIQUE: XR Ankle Min 3 Views. COMPARISON: None. FINDINGS: BONES : No acute fracture identified. Mineralization unremarkable. JOINTS: No dislocation. Joint spaces maintained. Mild joint effusion. SOFT TISSUES: Diffuse soft tissue swelling. RAD/Ankle min 3 Views IMPRESSION: No acute fracture or dislocation identified in the left ankle. Electronically Signed: Calli Chahal MD at 12:42 EDT ,
== END | disposition home or self-care (01) ==
PROVIDERS: PCP Nurse Practitioner Family; Referring Provider Nurse Practitioner Family; Visit Provider Nurse Practitioner Family
DX: E87.1 Hypo-osmolality and hyponatremia (principal); D72.829 Elevated white blood cell count, unspecified
CPT/HCPCS: 36415; 73610; 80048; 85025

== ENCOUNTER → 2024-09-10 | Outpatient (CLI) | payer OTHER, SELFPAY ==
--- NOTE | 2024-09-10 07:40 | MRI_ITS ---
EXAM: MR LEFT LOWER EXTREMITY WITHOUT INTRAVENOUS CONTRAST, ANKLE CLINICAL INDICATION: PAIN TECHNIQUE: Multiplanar and multisequence MR images of the left ankle without intravenous contrast. COMPARISON: Ankle radiographs, 07/28/2024. FINDINGS: LIGAMENTS: ANTERIOR TALOFIBULAR: No significant abnormality. Intact. POSTERIOR TALOFIBULAR: No significant abnormality. Intact. ANTERIOR TIBIOFIBULAR: No significant abnormality. Intact. POSTERIOR TIBIOFIBULAR: No significant abnormality. Intact. CALCANEOFIBULAR: No significant abnormality. Intact. DELTOID: No significant abnormality. Intact. SPRING: No significant abnormality. Intact. LISFRANC: No significant abnormality. Intact. TENDONS: ACHILLES: No significant abnormality. Intact. FLEXOR: No significant abnormality. Intact. EXTENSOR: No significant abnormality. Intact. PERONEAL: No significant abnormality. Intact. TIBIALIS ANTERIOR: No significant abnormality. Intact. TIBIALIS POSTERIOR: No significant abnormality. Intact. MUSCLES: No significant abnormality. Normal bulk and signal. FLUID: Trace tibiotalar joint effusion. SINUS TARSI: No significant abnormality. Normal fat in the sinus tarsi. TARSAL TUNNEL: No significant abnormality. PLANTAR FASCIA: No significant abnormality. Intact. CARTILAGE: No significant abnormality. No osteochondral lesion. Articular cartilage intact. BONES/JOINTS: No significant abnormality. Talar dome intact. No fracture or marrow edema. OTHER SOFT TISSUES: No significant abnormality. MRI/Lower Ext Joint Only (Routine) IMPRESSION: Trace tibiotalar joint effusion. Otherwise, no acute abnormalities. Electronically Signed: Wilfredo Carlson DO at 15:25 EST ,
== END | disposition home or self-care (01) ==
LOC: MRI 07:33
PROVIDERS: PCP Nurse Practitioner Family; Referring Provider Family Medicine; Visit Provider Family Medicine
DX: M25.579 Pain in unspecified ankle and joints of unspecified foot (principal)
CPT/HCPCS: 73721

== ENCOUNTER → 2024-10-06 | Outpatient (CLI) | payer OTHER, SELFPAY ==
[2024-10-06 09:02] LABS: Estradiol 37.3 pg/mL; Follicle Stimulating Hormone 6.1 mIU/mL; Luteinizing Hormone 13.8 mIU/mL
[2024-10-12 10:08] LABS: PROLACTIN 18.4 ng/mL (4.8-33.4); Testosterone, % Free 1.55 % (0.50-2.80); Testosterone, Free 0.48 ng/dL (0.10-0.85); Testosterone, Total 31 ng/dL (13-71)
== END | disposition home or self-care (01) ==
LOC: PAVLAB 07:57
PROVIDERS: PCP Nurse Practitioner Family; Referring Provider Family Medicine; Visit Provider Family Medicine
DX: N92.6 Irregular menstruation, unspecified (principal)
CPT/HCPCS: 36415; 82533; 82670; 83001; 83002; 84146; 84402; 84403; 84443

== ENCOUNTER → 2025-01-27 | Outpatient (CLI) | payer OTHER, SELFPAY | END | disposition home or self-care (01) | LOC: LABSPEC 16:10 | PROVIDERS: PCP Nurse Practitioner Family; Referring Provider Advanced Practice Midwife; Visit Provider Advanced Practice Midwife | DX: Z12.4 Encounter for screening for malignant neoplasm of cervix (principal); D06.9 Carcinoma in situ of cervix, unspecified | CPT/HCPCS: 88175; G0145 ==

== ENCOUNTER → 2025-04-05 | Outpatient (CLI) | payer OTHER, BC, SELFPAY ==
[2025-04-05 12:49] LABS: Absolute Lymphocyte Count 1.95 X10^3/uL (0.83-4.51); Absolute Neutrophil Count 4.7 X10^3/uL (2.0-7.7); Basophil# 0.02 X10^3/uL; Basophil% 0.3 % (0-1); Eosinophil# 0.11 X10^3/uL; Eosinophils% 1.5 % (0-5); Hematocrit 39.2 % (37-47); Lymphocyte # 1.95 X10^3/ul (0.83-4.51); Lymphocyte % 26.9 % (19-41); Mean Corp Hgb Conc 33.2 g/dL (32-36); Mean Corpuscular Volume 84.5 fL (81-99); Mean Platelet Vol. 11.8 fl (6.2-12.0); Monocyte# 0.46 X10^3/uL; Monocyte% 6.3 % (0-10); NRBC Flagged by Analyzer 0 % (0-5); Neutrophil % 64.7 % (47-70); Platelet Count 293 K/mm3 (150-450); RBC Distribution Width CV 13.8 % (11.6-14.6); RBC Distribution Width SD 42.2 fl (35.1-43.9); Red Blood Count 4.64 M/mm3 (4.2-5.4); White Blood Count 7.3 K/mm3 (4.4-11.0)
[2025-04-05 13:33] LABS: Amphetamine Urine NEGATIVE (<1000 ng/mL); Barbiturate Urine NEGATIVE (< 200 ng/mL); Benzodiazepine Urine NEGATIVE (< 200 ng/mL); Buprenorphine Urine NEGATIVE (< 200 ng/mL); Cocaine Urine NEGATIVE (< 300 ng/mL); Fentanyl, Urine NEGATIVE; Methadone Urine NEGATIVE (< 300 ng/mL); Opiates Urine NEGATIVE (< 300 ng/mL); Oxycodone, Urine NEGATIVE (< 100 ng/mL); PCP Urine NEGATIVE (< 25 ng/mL); THC Urine NEGATIVE (< 50 ng/mL)
[2025-04-05 13:41] LABS: Hemoglobin A1c 5.6 % (<=5.6)
[2025-04-05 13:42] LABS: ALB/GLOB Ratio 1.3 RATIO (0.9-2.4); AST(SGOT) 21 U/L (<=31); Alanine Aminotransfer ALT/SGPT 14 U/L (<=34); Alkaline Phosphatase 76 U/L (35-104); Anion Gap 11 (5-15); BUN 11 mg/dL (4-19); Calcium,Total 8.9 mg/dL (7.6-11.0); Carbon Dioxide 19.5 mmol/L (21.0-32.0); Chloride 107 mmol/L (98-108); Cholesterol 161 mg/dL (<=200); Creatinine, Serum 0.64 mg/dL (0.70-1.20); EST Glomerular Filtration Rate 123 (>60); Globulin 3.1 g/dL (2.2-4.2); Glucose 92 mg/dL (70-99); High Density Lipoprotein 50 mg/dL; Low Density Lipoprotein Calc. 95 mg/dL; Protein, Total 7.1 g/dL (5.9-8.4); Sodium Level 138 mmol/L (133-145); Total Bilirubin 0.31 mg/dL (0.00-1.30); Triglycerides 80 mg/dL; Very Low Density Lipoprotein 16 mg/dL (5-40); cholesterol:hdl ratio screen 3.25
[2025-04-07 04:07] LABS: Insulin Level 10.8 uIU/mL (2.6-24.9)
== END | disposition home or self-care (01) ==
LOC: VSLAB 08:59
PROVIDERS: PCP Nurse Practitioner Family; Visit Provider Nurse Practitioner Family
DX: L83 Acanthosis nigricans (principal); E66.9 Obesity, unspecified
CPT/HCPCS: 36415; 80053; 80061; 80307; 83036; 83525; 84439; 84443; 85025

== ENCOUNTER → 2025-05-30 | Outpatient (CLI) | payer OTHER, BC, SELFPAY ==
--- NOTE | 2025-05-30 07:03 | ECHOD_ITS ---
Reason For Study Reason For Study: CONGENITAL PUMLMONARY VALVE STENOSIS Procedure This was a 2D Doppler, Color Flow transthoracic echocardiogram. Exam performed in department. Left Ventricle Normal LV size. The left ventricular ejection fraction is 65 %. No regional wall motion abnormalities noted. Right Ventricle Normal RV size. Normal systolic function. Atria Normal left atrium. Normal right atrium. Mitral Valve Normal mitral valve. Tricuspid Valve Normal tricuspid valve. Aortic Valve Trisinus/trileaflet aortic valve. Pulmonic Valve Normal pulmonic valve. No significant pulmonic stenosis noted. Great Vessels Normal aortic root. The pulmonary artery is normal size. Inferior vena cava collapse with respiration. Pericardium/Pleural No pericardial effusion. MMode/2D Measurements & Calculations LVIDd: 3.9 cm IVSd: 0.93 cm Ao root diam: 2.6 cm LVIDs: 2.3 cm LVPWd: 0.89 cm RVDd: 3.3 cm FS: 41.9 % asc Aorta Diam: 2.7 cm LVAd ap4: 28.1 cm2 LVAd ap2: 23.5 cm2 LVLd ap4: 8.2 cm LVLd ap2: 8.4 cm EDV(MOD-sp4): 79.2 ml EDV(MOD-sp2): 55.7 ml EDV(sp4-el): 81.9 ml EDV(sp2-el): 55.7 ml LVAs ap4: 14.9 cm2 LVAs ap2: 14.2 cm2 LVLs ap4: 6.7 cm LVLs ap2: 7.1 cm ESV(MOD-sp4): 29.2 ml ESV(MOD-sp2): 24.7 ml ESV(sp4-el): 28.2 ml ESV(sp2-el): 24.2 ml EF(MOD-sp4): 63.2 % EF(MOD-sp2): 55.7 % EF(sp4-el): 65.6 % SV(MOD-sp4): 50.0 ml SV(MOD-sp2): 31.0 ml SV(sp4-el): 53.7 ml SI(MOD-sp4): 24.2 ml/m2 SI(MOD-sp2): 15.0 ml/m2 LA dimension(2D): 2.8 cm TAPSE: 2.2 cm Time Measurements MV dec time: 0.21 sec Doppler Measurements & Calculations MV E max bill: 72.0 cm/sec Lat Peak E' Bill: 19.4 cm/sec Med Peak E' Bill: 18.9 cm/sec MV A max bill: 54.4 cm/sec E/E' lat: 3.7 E/E' med: 3.8 MV E/A: 1.3 MV V2 max: 105.7 cm/sec MV P1/2t max bill: 107.2 cm/sec Ao V2 max: 143.7 cm/sec MV max P.5 mmHg MV P1/2t: 63.3 msec Ao max P.3 mmHg MV V2 mean: 58.7 cm/sec MV dec slope: 496.1 cm/sec2 Ao V2 mean: 100.0 cm/sec MV mean P.6 mmHg Ao mean P.5 mmHg MV V2 VTI: 21.6 cm MVA(P1/2t): 3.5 cm2 Ao V2 VTI: 27.8 cm AV (velocity ratio): 0.81 LV V1 max: 117.0 cm/sec PA V2 max: 150.1 cm/sec LV V1 max P.5 mmHg PA V2 mean: 91.2 cm/sec LV V1 mean P.1 mmHg PA V2 VTI: 26.4 cm LV V1 mean: 83.9 cm/sec LV V1 VTI: 22.4 cm ECHO/Echo Complete Interpretation Summary Normal LV size. The left ventricular ejection fraction is 65 %. Normal pulmonic valve. No significant pulmonic stenosis noted. Ordering Physician: Jannette Wilcox Referring Physician: Lala Ybarra Performed By: Jerri Garcia RDCS, RVT
--- OUTSIDE RECORDS SUMMARY | 2025-05-30 07:08 | XMS RPT_ITS | CCD ---
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 Panda Stock Primary Care Provider Dr. Panda Stock Referring Provider Dr. Hi Silverio Attending Provider Dr. Cora Saeed Attending Provider [phone] Roof INPATIENT CARE MANAGER RN, UZIEL Cat Attending Provider Dr. Panda Stock Primary Care Provider [phone] Dr. Panda Stock Referring Provider Dr. Cora Saeed Attending Provider [phone] Dr. Panda Stock Primary Care Provider [phone] Dr. Panda Stock Referring Provider Dr. Cora Saeed Attending Provider [phone] River INPATIENT CARE MANAGER RNJANETT-Ame Alcala Attending Provider Dr. Panda Stock Primary Care Provider [phone] Dr. Panda Stock Referring Provider Dr. Cora Saeed Attending Provider [phone] Dr. Panda Stock Primary Care Provider [phone] Dr. Panda Stock Referring Provider River INPATIENT CARE MANAGER RNJANETT-Ame Alcala Attending Provider [phone] Dr. Cora Saeed Attending Provider [phone] Dr. Panda Stock Primary Care Provider [phone] Dr. Panda Stock Referring Provider River INPATIENT CARE MANAGER RN, INPATIENT CARE MANAGER RN-C Cari Attending Provider [phone] Dr. Cintia Mcgee Attending Provider [phone] Dr. Cintia Mcgee Other Provider [phone] Dr. Cora Saeed Attending Provider [phone] Dr. Panda Stock Primary Care Provider Dr. Cintia Mcgee Attending Provider [phone] Dr. Cintia Mcgee Other Provider [phone] Dr. Panda Stock Referring Provider Darlin, Dr. Shepherd Attending Provider [phone] River INPATIENT CARE MANAGER RN, INPATIENT CARE MANAGER RN-C Cari Attending Provider [phone] Dr. Panda Stock Primary Care Provider Dr. Panda Stock Referring Provider Dr. Cintia Mcgee Attending Provider [phone] Dosjudith, Dr. Shepherd Attending Provider [phone] MERT Zendejas Attending Provider Dr. Panda Stock Referring Provider Dr. Cintia Mcgee Attending Provider [phone] Dr. Cora Saeed Attending Provider [phone] Dr. Panda Stock Primary Care Provider Dr. Cintia Mcgee Attending Provider [phone] Cora wong Attending Provider [phone] Dr. Francisco Stock Primary Care Provider Dr. Francisco Stock Referring Provider [phone] Tate ROWLAND-C, Lala Primary Care Provider Vivienne East DO Attending Provider Vivienne East DO Referring Provider Tate INPATIENT CARE MANAGER RN-C, Lala Referring Provider Feliciano Ge Attending Provider Noelle INPATIENT CARE MANAGER RN-C, Demario Attending Provider [phone] Darlin LARES, Dr. Shepherd Attending Provider Montrell PERSAUD, Dr. Singh Referring Provider [phone] Cristino VALDES, Nayely Attending Provider [phone] Cristino VALDES, Nayely Referring Provider Praneeth Quevedo Unavailable SCOTTIE CHANCE Referring Unavailable SCOTTIE CHANCE Attending Unavailable SCOTTIE CHANCE Attending Unavailable Tate INPATIENT CARE MANAGER RN-C, Lala Primary Care Provider Tate INPATIENT CARE MANAGER RN-C, Lala Referring Provider Tate INPATIENT CARE MANAGER RN-C, Lala Attending Provider Tate INPATIENT CARE MANAGER RN-C, Lala Primary Care Provider Tate INPATIENT CARE MANAGER RN-C, Lala Referring Provider Jannette Christensen Attending Provider [phone] Cruzito VSC, Vivienne Attending Unavailable Cruzito VSC, Vivienne Referring Unavailable Tate VSC, Lala Primary Care Unavailabl e Tate VSC, Lala Referring Unavailabl e Tate VSC, Lala Primary Care Unavailabl e Tate VSC, Lala Attending Unavailabl e Beam VSC, [place] Consulting Unavailable Cintia Mcgee Attending Unavailable Francisco Stock Referring Unavailable [facility] Unavailable Trista Lala Attending Unavailabl e Tate VSC, Lala Attending Unavailabl e [facility]rell, [facility] Unavailable Tate VSC, Lala Primary Care UnavailNayely Tamez Referring Unavailable Nayely Gregg Attending Unavailable Cintia Mcgee Attending Unavailable Cintia Mcgee Referring Unavailable Francisco Stock Primary Care Unavailable Tate VSC, Lala Primary Care Unavailabl e Tate VSC, Lala Attending Unavailabl e Tate VSC, Lala Referring Unavailabl e Tate VSC, Lala Primary Care Unavailabl e Demario Drake Attending Unavailable Francisco Stock Referring Unavailable [facility] Care Unavailable Cintia Mcgee Attending Unavailable Cintia Mcgee Consulting Unavailable [facility] Care Unavailable Reji Gagnon Attending Unavailable [facility] Un[facility] Care Unavailable Trista Lala Attending Unavailabl e [facility] Care Unavailable Trista Lala Attending Unavailabl e Trista Lala Referring Unavailabl e Assessment, Health Risk Attending Unavaila ble [facility] Care Unavailable [facility] Primary Care Unavailabl e Jannette Christensen Attending Unavail able Jannette Christensen Referring Unavail able Cruzito VSCVivienne Attending Unavailable [facility] Referring Unavailable [facility], [facility] Primary Care Unavailabl e Tate VSC, Lala Referring Unavailabl e Tate VSC, [facility] Primary Care Unavailabl e Cora Saeed Attending Unavailable [facility], [facility] Referring Unavailabl e Tate VSC, [facility] Primary Care Unavailabl e Demario Drake Attending Unavailable Tate [facility], Lala Referring Unavailabl e Tate VSC, [facility] Primary Care Unavailjuju e Cora Saeed Attending Unavailable [facility], [facility] Primary Care Unavailabl e Tate VSC, [facility] Referring Unavailabl e Feliciano Echavarria Attending Unavailable [facility] Referring Unavailable [facility] Care Unavailable Feliciano Echavarria Attending Unavailable [facility] Care Unavailable Trista Lala Referring Unavailabl e Trista Lala Attending Unavailabl e [facility] Referring Unavailable [facility] Primary Care Unavailable Trista Lala Attending Unavailabl e [facility] Referring Unavailable [facility] Primary Care Unavailable Trista Lala Attending Unavailabl e Tate [facility], [facility] Primary Care Unavailabl e Tate [facility], [facility] Referring Unavailabl e Feliciano Echavarria Attending Unavailable [facility], Lala Referring Unavailabl e Tate VSC, [facility] Primary Care Unavailabl e Trista Lala Attending Unavailabl e Cintia Mcgee Attending Unavailable Cintia Mcgee Referring Unavailable EstefaníaonyCintia Consulting [facility] [place] Unavailable Cintia Mcgee Attending Unavailable Everardo, Cintia Referring [facility] Unavailable Everardo, Cintia Consulting Unavailable [facility], [facility] Referring Unavailabl e [facility], [facility] Primary Care Unavailabl e Jannette Christensen Attending Unavail able [facility] Referring Unavailable [facility] Primary Care Unavailable Feliciano Echavarria Attending Unavailable [facility], [facility] Unavailabl e [facility] Referring Unavailable Nayely Gregg Attending Unavailable [facility] Care Unavailable Trista Lala Attending Unavailabl e Trista Lala Referring Unavailabl e Allergies Allergy Classification Reported Allergen(s) Allergy Type Date of Onset Reaction(s) Facility (19 sources) Adhesive Tape; Translations: [adhesive tape] Allergy to substance 2 abrasion [facility] (20 sources) HYDROcodone; Translations: [HYDROCODONE] Drug Allergy 8 Other: See Comments [facility] (9 sources) flu vaccine Allergy to substance 2 Swelling [facility] (3 sources) Norethindrone Drug Allergy 3 Rash [facility] (7 sources) Influenza Vaccines Allergy to substance 3 Swelling [facility] (7 sources) Norethindrone Drug Allergy 3 Rash [facility] (4 sources) ADHESIVE TAPE-SILICONES; Translations: [ADHESIVE TAPE-SILICONES] Propensity to adverse reactions to drug (disorder) 5 [facility] (1 source) HYDROcodone Drug Allergy 5 [facility] (1 source) Norethindrone Drug Allergy 5 [facility] (1 source) Influenza Virus Vaccines Drug allergy (disorder) 5 [facility] Medications Current Medications Medication Drug Class(es) Dates Sig (Normalized) Sig (Original) [id number] 200 actuat albuterol 0.09 mg/actuat metered dose inhaler (4 sources) beta2-Adrener gic Agonist Start: Albuterol Sulfate 90 mcg/actuation HFA aerosol inhaler Active 2 NMA INHALATION Q4H as needed for shortness of breath or wheezing June 16, 2024 12:00am medroxyPROGESTERone acetate 10 mg oral tablet (20 sources) Progestin Start: Medroxyprogesterone (Provera) 10 mg tablet Active 10 MG PO daily January 26, 2023 12:00am start day 14 of every month take daily for 10 days Start: 12-07-2019 End: 05-22-2020 take 1 tablet by mouth once daily Medroxyprogesterone (Provera) 10 mg tablet Discontinued 10 mg PO DAILY 10 December 07, 2019 1:00am May 22, 2020 11:04am Multivitamin (Daily Multi-Vitamin) tablet (4 sources) Start: 06-16-2024 Multivitamin (Daily Multi-Vitamin) tablet Active 1 {tbl} PO DAILY June 16, 2024 12:00am nabumetone 750 mg oral tablet (4 sources) Nonsteroidal Anti-inflammatory Drug take 1 tablet by mouth twice daily nabumetone (RELAFEN) 750 mg tablet Take 750 mg by mouth twice daily. Active Popponesset (Nk) (2 sources) Start: 09-10-2022 Popponesset (Nk) Active September 10, 2022 12:00am phentermine hydrochloride 15 mg oral capsule (20 sources) Sympathomimetic Amine Anorectic Start: 05-12-2025 take 1 capsule by mouth once daily 2 hour(s) after breakfast Phentermine 15 mg capsule Active 15 mg PO daily May 12, 2025 12:00am must administer 2 hours after breakfast Start: 04-02-2023 End: 03-25-2024 Phentermine (Adipex-P) 37.5 mg tablet Discontinued 18.75 mg PO daily 15 2 December 29, 2023 5:27pm March 25, 2024 11:03am BMI 38 Start: 06-09-2022 End: 09-10-2022 take 1 capsule by mouth once daily 30 minutes after breakfast Phentermine (Adipex-P) 37.5 mg capsule Discontinued 37.5 mg PO DAILY 30 0 August 05, 2022 4:08pm November 16th, 2022 10:10am must administer 30 minutes before or 1-2 hours after breakfast vit 91/iron/folic/dha ( + DHA ORAL) (4 sources) take 1 tablet by mouth once daily vit 91/iron/folic/dha ( + DHA ORAL) Take 1 tablet by mouth once daily. Active Semaglutide 2 mg/dose (8 mg/3 mL) pen injector (1 source) Start: 05-12-2025 Semaglutide 2 mg/dose (8 mg/3 mL) pen injector Active 2 mg SC EVERY WEEK May 12, 2025 12:00am Completed/Discontinued Medications Medication Drug Class(es) Dates Sig (Normalized) Sig (Original) acetaminophen 325 mg / oxyCODONE hydrochloride 5 mg oral tablet (4 sources) Opioid Agonist Start: 05-31-2024 End: 06-16-2024 Oxycodone-Acetamin ophen (Endocet) 5-325 mg tablet Discontinued 1 {tbl} PO EVERY 6 HOURS as needed for pain 8 2 0 May 31, 2024 June 16, 2024 9:59am Abdominal pain affecting Other specified related conditions, unspecified trimester Unspecified abdominal pain amoxicillin 500 mg oral capsule (18 sources) Penicillin-class Antibacterial Start: 08-08-2020 End: 08-18-2020 take 2 capsules by mouth twice daily Amoxicillin 500 mg capsule Discontinued 1000 mg PO TWICE A DAY 40 August 08, 2020 12:00am August 17, 2020 12:00am August 18, 2020 12:03am Start: 08-08-2020 End: 08-18-2020 take 1000 mg by mouth twice daily Amoxicillin Discontinued 1000 MG PO TWICE A DAY 40 August 08, 2020 12:00am August 18, 2020 12:03am amoxicillin 875 mg / clavulanate 125 mg oral tablet (20 sources) Penicillin-class Antibacterial Start: 04-16-2023 End: 04-26-2023 Amoxicillin-Pot Clavulanate 875-125 mg tablet Discontinued 1 {tbl} PO Q12H 20 10 April 16, 2023 12:00am April 25, 2023 12:00am April 26, 2023 12:04am Acute sinusitis, unspecified Start: 04-16-2023 End: 04-26-2023 take 1 tablet by mouth every twelve hours Amoxicillin-Pot Clavulanate Discontinued 1 TABLET PO Q12H 20 April 16, 2023 12:00am April 26, 2023 12:04am Start: 03-14-2021 End: 05-09-2021 Amoxicillin-Pot Clavulanate (Augmentin) 875-125 mg tablet Discontinued 1 {tbl} PO Q12H March 14, 2021 12:00am May 09, 2021 2:46pm benzonatate 200 mg oral capsule (4 sources) Non-narcotic Antitussive Start: 07-12-2024 End: 11-02-2024 take 1 capsule by mouth three times daily as needed for cough Benzonatate 200 mg capsule Discontinued 200 mg PO THREE TIMES A DAY as needed for cough July 12, 2024 12:00am November 02, 2024 8:10am 12 hr buPROPion hydrochloride 100 mg extended release oral tablet (20 sources) Aminoketone Start: 05-22-2020 End: 06-09-2022 take 1 tablet by mouth once daily Bupropion Hcl (Wellbutrin Sr) 100 mg tablet sustained-release 12 hr Discontinued 100 mg PO DAILY May 22, 2020 12:00am June 09, 2022 1:53pm Start: 11-11-2018 End: 12-07-2019 take 1 tablet by mouth once daily Bupropion Hcl (Wellbutrin Sr) 150 mg tablet sustained-release 12 hr Discontinued 300 mg PO DAILY November 11, 2018 1:00am December 07, 2019 2:02pm take 1 tablet by ghazala th once daily buPROPion XL (WELLBUTRIN XL) 300 mg 24 hr tablet Take 300 mg by mouth once daily. Active cephalexin 500 mg oral capsule (7 sources) Cephalosporin Antibacterial Start: 08-13-2023 End: 08-23-2023 take 1 capsule by mouth every twelve hours Cephalexin 500 mg capsule Discontinued 500 mg PO Q12H 20 August 13, 2023 12:00am August 22, 2023 12:00am August 23, 2023 12:04am cholecalciferol 0.025 mg oral tablet (20 sources) Vitamin D Start: 12-25-2020 End: 05-09-2021 take 1 tablet by mouth once daily Cholecalciferol (Vitamin D3) 25 mcg (1,000 unit) tablet Discontinued 25 ug PO DAILY December 25, 2020 1:00am May 09, 2021 2:47pm Start: 11-22-2018 End: 12-07-2019 take 1 capsule by mouth once daily Cholecalciferol (Vitamin D3) 2,000 UNIT capsule Discontinued 2000 U PO DAILY November 22, 2018 1:00am December 07, 2019 2:02pm clomiPHENE citrate 50 mg oral tablet (18 sources) Estrogen Agonist/Antagonist Start: 01-02-2020 End: 01-07-2020 take 1 tablet by mouth once daily Clomiphene Citrate 50 mg tablet Discontinued 50 mg PO daily 5 5 0 January 02, 2020 12:00am January 06, 2020 12:00am January 07, 2020 12:09am cycle days 3-7 Desogestrel / Ethinyl Estradiol (20 sources) Progestin, Estrogen Start: 03-30-2023 End: 05-15-2023 take 0.15 tablet by mouth once daily Desogestrel-Ethin yl Estradiol (Apri) 0.15-0.03 mg tablet Discontinued 1 {tbl} PO daily 22 10March 30, 2023 12:00am May 15, 2023 9:14am Start: 03-30-2023 End: 05-15-2023 take 0.15 tablet by mouth once daily Desogestrel-Ethinyl Estradiol (Apri) 0.15-0.03 mg tablet Discontinued 1 {tbl} PO daily March 30, 2023 12:00am May 15, 2023 9:14am Start: 03-30-2023 End: 05-15-2023 Desogestrel-Ethinyl Estradio l (Apri) 0.15-0.03 mg tablet Discontinued 1 TABLET PO daily March 30, 2023 12:00am May 15, 2023 9:14am Start: 03-30-2023 End: 05-15-2023 Desogestrel-Ethinyl Estradio l (Apri) 0.15-0.03 mg tablet Discontinued 1 TABLET PO daily March 29, 2023 11:00pm May 15, 2023 8:14am Start: 06-06-2021 Desogestrel-Et hinyl Estradiol (Apri) 0.15-0.03 mg tablet Active 1 TABLET PO daily June 06, 2021 3:28pm Start: 06-06-2021 End: 06-09-2022 take 0.15 tablet by mouth once daily Desogestrel-Ethinyl Estradiol (Apri) 0.15-0.03 mg tablet Discontinued 1 {tbl} PO daily 84 4 June 06, 2021 12:00am June 09, 2022 1:53pm Start: 06-06-2021 End: 06-09-2022 take 0.15 tablet by mouth once daily Desogestrel-Ethinyl Estradiol (Apri) 0.15-0.03 mg tablet Discontinued 1 {tbl} PO daily 84 June 06, 2021 12:00am June 09, 2022 1:53pm Start: 06-06-2021 End: 06-09-2022 Desogestrel-Ethinyl Estradio l (Apri) 0.15-0.03 mg tablet Discontinued 1 TABLET PO daily 84 June 05, 2021 11:00pm June 09, 2022 12:53pm Start: 06-06-2021 End: 06-09-2022 Desogestrel-Ethinyl Estradio l (Apri) 0.15-0.03 mg tablet Discontinued 1 TABLET PO daily June 06, 2021 12:00am June 09, 2022 1:53pm Start: 06-06-2021 Desogestrel-Et hinyl Estradiol (Apri) 0.15-0.03 mg tablet Active 1 TABLET PO daily June 06, 2021 12:00am dexamethasone 6 mg oral tablet (4 sources) Corticosteroid Start: 07-12-2024 End: 11-02-2024 take 1 tablet by mouth once daily Dexamethasone 6 mg tablet Discontinued 6 mg PO DAILY 5 July 12, 2024 12:00am November 02, 2024 8:10am doxycycline monohydrate 100 mg oral capsule (20 sources) Tetracycline-class Drug Start: 08-25-2022 End: 09-01-2022 take 1 capsule by mouth twice daily Doxycycline Monohydrate 100 mg capsule Discontinued 100 mg PO TWICE A DAY 14 7 August 25, 2022 12:00am August 31, 2022 12:00am September 01, 2022 1:03am Start: 05-22-2020 End: 08-08-2020 take 1 capsule by mouth twice daily Doxycycline Monohydrate 100 mg capsule Discontinued 100 mg PO TWICE A DAY 20 May 22, 2020 12:00am August 08, 2020 9:44am Drospirenone-Ethinyl Estradiol (7 sources) Progestin, Estrogen Start: 05-15-2023 End: 03-25-2024 Drospirenone-Ethinyl Estradiol 3-0.02 mg tablet Discontinued 1 {tbl} PO daily 22 10May 15, 2023 12:00am March 25, 2024 11:03am Start: 05-15-2023 End: 03-25-2024 Drospirenone-Ethinyl Estradi ol 3-0.02 mg tablet Discontinued 1 {tbl} PO daily May 15, 2023 12:00am March 25, 2024 11:03am Start: 05-15-2023 take 1 tablet by ghazala th once daily Drospirenone-Ethinyl Estradiol Active 1 TABLET PO daily May 15, 2023 12:00am Start: 05-15-2023 take 1 tablet by ghazala th once daily Drospirenone-Ethinyl Estradiol Active 1 TABLET PO daily May 14, 2023 11:00pm Levonorgestrel-Ethinyl Estrad (18 sources) Progestin, Estrogen, Progestin-containing Intrauterine Device Start: 08-17-2019 End: 11-21-2019 take 1 tablet by mouth once daily Levonorgestrel-Ethinyl Estrad (Aviane) 0.1-20 mg-mcg tablet Discontinued 1 TABLET PO daily August 17, 2019 3:36pm November 21, 2019 12:37pm Start: 08-17-2019 End: 11-21-2019 take 1 tablet by mouth once daily Levonorgestrel-Ethinyl Estrad (Aviane) 0.1-20 mg-mcg tablet Discontinued 1 {tbl} PO daily August 17, 2019 12:00am November 21, 2019 12:37pm Start: 08-17-2019 End: 11-21-2019 take 1 tablet by mouth once daily Levonorgestrel-Ethinyl Estrad (Aviane) 0.1-20 mg-mcg tablet Discontinued 1 {tbl} PO daily August 17, 2019 12:00am November 21, 2019 12:37pm Start: 08-17-2019 End: 11-21-2019 take 1 tablet by mouth once daily Levonorgestrel-Ethinyl Estrad (Aviane) 0.1-20 mg-mcg tablet Discontinued 1 TABLET PO daily August 16, 2019 11:00pm November 21, 2019 11:37am Start: 08-17-2019 End: 11-21-2019 take 1 tablet by mouth once daily Levonorgestrel-Ethinyl Estrad (Aviane) 0.1-20 mg-mcg tablet Discontinued 1 TABLET PO daily August 17, 2019 12:00am November 21, 2019 12:37pm Norgestimate-Ethinyl Estradiol (18 sources) Progestin, Estrogen Start: 06-18-2020 End: 06-06-2021 take 1 tablet by mouth once daily Norgestimate-Ethinyl Estradiol (Sprintec (28)) 0.25-35 mg-mcg tablet Discontinued 1 TABLET PO daily June 18, 2020 11:19am June 06, 2021 3:29pm Start: 06-18-2020 End: 06-06-2021 Norgestimate-Ethinyl Estradi ol (Sprintec (28)) 0.25-35 mg-mcg tablet Discontinued 1 {tbl} PO daily 84 June 18, 2020 12:00am June 06, 2021 3:29pm Start: 06-18-2020 End: 06-06-2021 Norgestimate-Ethinyl Estradi ol (Sprintec (28)) 0.25-35 mg-mcg tablet Discontinued 1 {tbl} PO daily June 18, 2020 12:00am June 06, 2021 3:29pm Start: 06-18-2020 End: 06-06-2021 take 1 tablet by mouth once daily Norgestimate-Ethinyl Estradiol (Sprintec (28)) 0.25-35 mg-mcg tablet Discontinued 1 TABLET PO daily June 17, 2020 11:00pm June 06, 2021 2:29pm Start: 06-18-2020 End: 06-06-2021 take 1 tablet by mouth once daily Norgestimate-Ethinyl Estradiol (Sprintec (28)) 0.25-35 mg-mcg tablet Discontinued 1 TABLET PO daily June 18, 2020 12:00am June 06, 2021 3:29pm fluconazole 150 mg oral tablet (20 sources) Azole Antifungal Start: 03-22-2021 End: 05-09-2021 Fluconazole 150 mg tablet Discontinued 150 mg PO .COMPLEX 2 0 March 22, 2021 12:00am May 09, 2021 2:47pm 150 mg PO take one po now and repeat in 3 days Start: 05-28-2020 End: 06-18-2020 Fluconazole 150 mg tablet Di scontinued 150 mg PO .COMPLEX 2 0 May 28, 2020 12:00am June 18, 2020 11:00am 150 mg PO take one po now and repeat in 3 days FLUoxetine 10 mg oral capsule (18 sources) Serotonin Reuptake Inhibitor Start: 06-06-2021 End: 06-09-2022 take 1 capsule by mouth once daily Fluoxetine (Prozac) 10 mg capsule Discontinued 10 mg PO DAILY June 06, 2021 12:00am June 09, 2022 1:53pm fluticasone propionate 0.05 mg/actuat metered dose nasal spray (18 sources) Corticosteroid Start: 12-25-2020 End: 05-09-2021 take 50 ug nasal route once daily Fluticasone Propionate (Flonase Allergy Relief) 50 mcg/actuation spray,suspension Discontinued 1 NMA INTRANASAL DAILY December 25, 2020 1:00am May 09, 2021 2:47pm administer into each nostril Start: 12-25-2020 End: 05-09-2021 take 1 spray(s) nasal route once daily Fluticasone Propionate (Flonase Allergy Relief) 50 mcg/actuation spray,suspension Discontinued 1 SPRAY INTRANASAL DAILY December 25, 2020 1:00am May 09, 2021 2:47pm administer into each nostril lansoprazole 15 mg delayed release oral capsule (18 sources) Proton Pump Inhibitor Start: 06-06-2021 End: 06-09-2022 take 1 capsule by mouth once daily as needed Lansoprazole (Prevacid) 15 mg capsule,delayed release(DR/EC) Discontinued 15 mg PO DAILY as needed for heart burn June 06, 2021 12:00am June 09, 2022 1:53pm levonorgestrel 0.394345 mg/hr intrauterine system (20 sources) Progestin, Progestin-containi ng Intrauterine Device Start: 03-23-2019 End: 08-17-2019 Levonorgestrel (Liletta) 19.5 mcg/24 hrs (5 yrs) 52 mg intrauterine device Discontinued 1 NMA INTRA-UTER ONCE March 23, 2019 12:00am August 17, 2019 3:36pm Start: 03-23-2019 End: 08-17-2019 Levonorgestrel (Liletta) 19. 5 mcg/24 hrs (5 yrs) 52 mg intrauterine device Discontinued 1 DEVICE INTRA-UTER ONCE March 23, 2019 12:00am August 17, 2019 3:36pm Start: 02-10-2019 End: 02-10-2019 levonorgestrel 20 mcg/24 magda rs (6 yrs) 52 mg intrauterine device Discontinued 1 INSERT INTRA-UTER ONCE 1 February 10, 2019 8:25am February 10, 2019 8:47am Start: 09-27-2018 End: 11-11-2018 Levonorgestrel 14 mcg/24 magda r (3 years) intrauterine device Discontinued 1 NMA INTRA-UTER ONCE September 27, 2018 1:00am November 11, 2018 12:48pm Start: 09-27-2018 End: 11-11-2018 Levonorgestrel Discontinued 1 INSERT INTRA-UTER ONCE September 27, 2018 1:00am November 11, 2018 12:48pm megestrol acetate 40 mg oral tablet (10 sources) Progestin Start: 12-24-2022 End: 01-26-2023 Megestrol 40 mg tablet Discontinued 40 mg PO .COMPLEX 45 0 December 24, 2022 1:00am January 26, 2023 4:46pm 40 mg PO tid until bleeding stops then bid to finish RX; metroNIDAZOLE 500 mg oral tablet (20 sources) Nitroimidazole Antimicrobial Start: 07-11-2024 End: 07-18-2024 take 1 tablet by mouth twice daily Metronidazole 500 mg tablet Discontinued 500 mg PO TWICE A DAY 14 7 0 July 11, 2024 12:00am July 17, 2024 12:00am July 18, 2024 12:05am Start: 05-13-2021 End: 06-06-2021 take 1 tablet by mouth twice daily Metronidazole (Flagyl) 500 mg tablet Discontinued 500 mg PO TWICE A DAY 14 0 May 13, 2021 12:00am June 06, 2021 3:22pm naproxen 500 mg oral tablet (20 sources) Nonsteroidal Anti-inflammatory Drug Start: 12-18-2022 End: 03-25-2024 take 1 tablet by mouth at mealtime as needed for pain Naproxen 500 mg tablet Discontinued 500 mg PO NEEDED as needed for Pain March 16, 2023 11:26am March 25, 2024 11:03am administer with food or milk Start: 08-31-2020 End: 05-09-2021 take 1 tablet by mouth twice daily as needed Naproxen 500 MG tablet Discontinued 500 mg PO TWICE DAILY NEEDED August 31, 2020 1:00am May 09, 2021 2:47pm nitrofurantoin, macrocrystals 25 mg / nitrofurantoin, monohydrate 75 mg oral capsule (20 sources) Nitrofuran Antibacterial Start: 06-30-2024 End: 07-07-2024 take 1 capsule by mouth twice daily at mealtime Nitrofurantoin Monohyd/M-Cryst (Macrobid) 100 mg capsule Discontinued 100 mg PO TWICE A DAY 14 7 0 June 30, 2024 12:00am July 06, 2024 12:00am July 07, 2024 12:05am must administer with a meal/food Start: 11-23-2018 End: 02-08-2019 take 1 capsule by mouth twice daily Nitrofurantoin Monohyd/M-Cryst 100 MG capsule Discontinued 100 mg PO TWICE A DAY 13 0 November 23, 2018 1:00am February 08, 2019 9:44am norethindrone acetate 5 mg oral tablet (20 sources) Start: 12-18-2022 End: 12-24-2022 take 1 tablet by mouth three times daily, then take 1 tablet by mouth twice daily Norethindrone Acetate (Aygestin) 5 mg tablet Discontinued 5 mg PO .COMPLEX 45 0 December 18, 2022 1:00am December 24, 2022 9:53am 5 mg PO tid until bleeding stops X 24 hr then bid to finish Rx Start: 08-22-2022 End: 08-25-2022 take 1 tablet by mouth once daily Norethindrone Acetate (Aygestin) 5 mg tablet Discontinued 5 mg PO DAILY 14 0 August 22, 2022 12:00am August 25, 2022 3:51pm Start: 11-11-2018 End: 02-15-2019 take 1 tablet by mouth once daily Norethindrone (Contraceptive) (Lauren) 0.35 mg tablet Discontinued 0.35 mg PO DAILY November 11, 2018 1:00am February 15, 2019 12:54pm omeprazole 20 mg delayed release oral capsule (7 sources) Proton Pump Inhibitor Start: 03-19-2023 End: 03-25-2024 take 1 capsule by mouth once daily Omeprazole 20 mg capsule,delayed release(DR/EC) Discontinued 20 mg PO DAILY 14 March 19, 2023 12:00am March 25, 2024 11:03am Dysphagia Gastroesophageal reflux disease Dysphagia, unspecified Gastro-esophageal reflux disease without esophagitis ondansetron 4 mg disintegrating oral tablet (20 sources) Serotonin-3 Receptor Antagonist Start: 05-31-2024 End: 06-16-2024 take 1 tablet by mouth every six hours Ondansetron 4 mg tablet,disintegrating Discontinued 4 mg PO EVERY 6 HOURS 14 0 May 31, 2024 12:00am June 16, 2024 9:59am Start: 08-31-2020 End: 12-25-2020 take 1 tablet by mouth every eight hours as needed for nausea Ondansetron 4 MG tablet Discontinued 4 mg PO EVERY 8 HOURS NEEDED as needed for Nausea August 31, 2020 1:00am December 25, 2020 4:29pm Semaglutide 0.25 mg/0.05 mL syringe (1 source) Start: 05-12-2025 End: 05-12-2025 Semaglutide 0.25 mg/0.05 mL syringe Discontinued mg SC as needed May 12, 2025 12:00am May 12, 2025 2:30pm sulfamethoxazole 800 mg / trimethoprim 160 mg oral tablet (18 sources) Dihydrofolate Reductase Inhibitor Antibacterial, Sulfonamide Antimicrobial Start: 04-06-2019 End: 11-21-2019 Sulfamethoxazole-Tri methoprim 1 EACH tablet Discontinued 1 NMA PO TWICE A DAY April 06, 2019 12:00am November 21, 2019 12:37pm Start: 04-06-2019 End: 11-21-2019 Sulfamethoxazole-Trimethopri m Discontinued 1 EACH PO TWICE A DAY April 06, 2019 12:00am November 21, 2019 12:37pm topiramate 50 mg oral tablet (14 sources) Start: 09-10-2023 End: 03-25-2024 take 1 tablet by mouth twice daily before breakfast Topiramate 50 mg tablet Discontinued 50 mg PO TWICE A DAY 60 September 10, 2023 4:37pm March 25, 2024 11:03am take before breakfast and before dinner Start: 05-15-2023 End: 09-10-2023 take 1 tablet by mouth twice daily before breakfast Topiramate (Topamax) 25 mg tablet Discontinued 25 mg PO TWICE A DAY 60 May 15, 2023 12:00am September 10, 2023 4:38pm take before breakfast and before dinner Problems Active Problems Problem Classification Problem Date Documented Date Episodic/Chronic Anxiety disorders (18 sources) Anxiety; Translations: [Anxiety disorder, unspecified] 09-06-2019 Chronic Cardiac and circulatory congenital anomalies (20 sources) Congenital stenosis of pulmonary valve; 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 valve stenosis] Onset: 05-12-20 Chronic Comment on above: s/p cardiac approval for phentermine Cardiac dysrhythmias (4 sources) Palpitations; Translations: [Palpitations] 03-25-2024 Episodic Contraceptive and procreative management (18 sources) Patient encounter status; Translations: [Encounter for fertility testing] Episodic Comment on above: OVA good supply, goo d quality; 21 day progesterone and SA for partner ordered Esophageal disorders (7 sources) Gastroesophageal reflux disease; Translations: [Gastro-esophageal reflux disease without esophagitis] 03-19-2023 Chronic Female infertility (18 sources) 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; 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] 12-22-2022 Chronic Comment on above: bilateral blockage s een, but questionable tubal spasm.saw RGI:IVF offered and declined Headache; including migraine (18 sources) Cluster headache; Translations: [Cluster headache syndrome, unspecified, not intractable] 09-06-2019 Chronic Heart valve disorders (18 sources) Heart murmur; Translations: [Cardiac murmur, unspecified] 09-06-2019 Episodic Immunizations and screening for infectious disease (3 sources) Contact with and (suspected) exposure to other viral communicable diseases; Translations: [Contact with or suspected exposure to other viral communicable disease] 04-16-2023 Episodic Inflammatory diseases of female pelvic organs (3 sources) Inflammatory disease of cervix uteri; Translations: [Cervicitis and endocervicitis] Episodic Influenza (12 sources) Influenza due to Influenza A virus; Translations: [Influenza due to other identified influenza virus with other respiratory manifestations] 10-08-2022 Episodic Menstrual disorders (20 sources) Menometrorrhagia; Translations: [Excessive and frequent menstruation with irregular cycle] Onset: 06-28-2012-22-2022 Chronic Comment on above: ocp switched to diff erent pill. doing well Mood disorders (19 sources) Depressive disorder; Translations: [Depression] 09-06-2019 Chronic Comment on above: BIPOLAR Nonspecific chest pain (20 sources) Chest pain; Translations: [Chest pain, unspecified] 07-22-2018 Episodic Other bone disease and musculoskeletal deformities (20 sources) Segmental and somatic dysfunction; Translations: [Segmental and somatic dysfunction of cervical region] 12-18-2022 Episodic Other bone disease and musculoskeletal deformities (20 sources) Segmental and somatic dysfunction of cervical region; Translations: [Nonallopathic lesions, cervical region] Onset: 04-13-20 Episodic Other bone disease and musculoskeletal deformities (20 sources) Segmental and somatic dysfunction of lumbar region; Translations: [Nonallopathic lesions, lumbar region] Onset: 04-13-20 Episodic Other bone disease and musculoskeletal deformities (20 sources) Segmental and somatic dysfunction of pelvic region; Translations: [Nonallopathic lesions, pelvic region] Onset: 04-13-20 Episodic Other bone disease and musculoskeletal deformities (20 sources) Segmental and somatic dysfunction of thoracic region; Translations: [Nonallopathic lesions, thoracic region] Onset: 04-13-20 Episodic Other complications of (4 sources) Abdominal pain in ; Translations: [Other specified related conditions, unspecified trimester] 06-08-2024 Episodic Other connective tissue disease (5 sources) Pain in calf; Translations: [Pain in unspecified lower leg] 01-29-2024 Episodic Comment on above: bmp ordered Other connective tissue disease (1 source) Pain in unspecified lower leg; Translations: [Pain in limb] 01-29-2024 Episodic Other female genital disorders (15 sources) Abnormal uterine bleeding; Translations: [Abnormal uterine and vaginal bleeding, unspecified] 12-22-2022 Chronic Comment on above: bleeding after inter course x 2 Other female genital disorders (13 sources) Postcoital bleeding; Translations: [Postcoital and contact bleeding] 09-10-2022 Chronic Comment on above: friable cx:doxy: res olved Other female genital disorders (6 sources) Postcoital and contact bleeding; Translations: [Postcoital bleeding] Chronic Other female genital disorders (4 sources) Vaginal bleeding; Translations: [Abnormal uterine and vaginal bleeding, unspecified] 06-08-2024 Chronic Other female genital disorders (1 source) Abnormal uterine and vaginal bleeding, unspecified; Translations: [Abnormal uterine and vaginal bleeding, unspecified] Onset: 06-28-20 Chronic Other gastrointestinal disorders (7 sources) Dysphagia; Translations: [Dysphagia, unspecified] 02-09-2023 Episodic Comment on above: As above, patient co mplains of chronic, but nearly daily dysphagia. Previously evaluated by ENT and determined to have inflammatory change secondary to reflux. Also as above, I have offered patient to consider diagnostic EGD. Patient to think this over and we will plan to revisit this conversation once we follow-up labs drawn for item #1. Other lower respiratory disease (18 sources) Chest pain on breathing; Translations: [Chest pain on breathing] 09-07-2019 Episodic Other nutritional; endocrine; and metabolic disorders (16 sources) Body mass index 40+ - severely obese; Translations: [Body mass index (BMI) 40.0-44.9, adult] 06-09-2022 Chronic Other nutritional; endocrine; and metabolic disorders (16 sources) Obesity; Translations: [Obesity, unspecified] 08-05-2022 Chronic Comment on above: Nutrition plan: [facility] [id number] calorie, inverter and clipper consult Medication plan: plan 18.75mg Phentermine, increased topamax to 50 BID, discussed possible lomaira. s/p cardio approval 04/02/2023 for medication. control- OCPBehavior intervention: recommend daily journal of food intake with electronic methodsExercise plan: increase daily steps and NEAT activity Other nutritional; endocrine; and metabolic disorders (8 sources) Body mass index (BMI) 40.0-44.9, adult; Translations: [Body Mass Index 40.0-44.9, adult] Chronic Other nutritional; endocrine; and metabolic disorders (20 sources) Obesity, unspecified; Translations: [Obesity, unspecified] Chronic Other nutritional; endocrine; and metabolic disorders (13 sources) Body mass index 30+ - obesity; Translations: [Body mass index (BMI) 39.0-39.9, adult] 09-10-2023 Chronic Comment on above: SW- 237 on 03/26/23Ini tial goal- s/p 10% weight reduction with nutritional and medication intervention recommendationsinitial obesity assessment lab panel drawn 02/15- reviewed. Other nutritional; endocrine; and metabolic disorders (3 sources) Body mass index (BMI) 39.0-39.9, adult; Translations: [Body Mass Index 39.0-39.9, adult] 08-13-2023 Chronic Other nutritional; endocrine; and metabolic disorders (7 sources) Body mass index (BMI) 38.0-38.9, adult; Translations: [Body Mass Index 38.0-38.9, adult] 10-05-2023 Chronic Other screening for suspected conditions (not mental disorders or infectious disease) (7 sources) Finding of neck region; Translations: [Abnormal findings on diagnostic imaging of other specified body structures] 02-09-2023 Chronic Comment on above: 5 mm hypoechoic stru cture posterior to left thyroid lobe read by radiology is suspicious for lymph node versus parathyroid gland. Clinically patient does not have a diagnosis of hyperparathyroidism, but I would like to evaluate this biochemically with lab draw of serum calcium, PTH, and vitamin D. Other skin disorders (1 source) Acanthosis nigricans; Translations: [Acanthosis nigricans] Onset: 04-12-20 Episodic Other upper respiratory infections (20 sources) Acute sinusitis; Translations: [Acute sinusitis, unspecified] 10-08-2022 Episodic Residual codes; unclassified (19 sources) Family history of cardiac disorder; Translations: [Family history of ischemic heart disease and other diseases of the circulatory system] 01-24-2022 Episodic Residual codes; unclassified (2 sources) Family history of ischemic heart disease and other diseases of the circulatory system; Translations: [Family history of other cardiovascular diseases] Episodic Spondylosis; intervertebral disc disorders; other back problems (18 sources) Backache; Translations: [Dorsalgia, unspecified] 12-24-2023 Episodic Syncope (10 sources) Near syncope; Translations: [Syncope and collapse] 05-20-2024 Episodic Thyroid disorders (18 sources) Goiter; 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) goiter] 01-26-2023 Chronic Comment on above: Patient describes so me chronic dysphagia that is routinely bothersome to her. Given that the depth of her thyroid gland is relatively within normal proportions, I do not suspect at this time that this is contributing to her symptoms of dysphagia. Patient does communicate that she was evaluated by ENT and using an NPL scope, ENT diagnosed her with acid reflux. I have offered for patient to consider diagnostic EGD to evaluate this further, but patient requests additional time before making a decision. This is a 27-year-ol d female, euthyroid from an endocrine standpoint, who presents for evaluation of recently noted thyroid nodule with ultrasound exam performed for diagnosis, clinically, of thyromegaly. This nodule is located in the patient's right thyroid lobe and is hypoechoic, solid, and exhibits a clear margin. This qualifies it as a TI-RADS 4 lesion, however, given that its greatest dimension is just 4 mm, I do not believe it warrants further attention. There is a separate area posterior to the left thyroid lobe that is recognized by radiology and with my own bedside ultrasound addressed below. Unclassified (1 source) Post COVID-19 condition, unspecified; Translations: [Post COVID-19 condition, unspecified] Onset: 08-10-20 24 Unclassified (1 source) Other specified diseases and conditions complicating ; Translations: [Other specified diseases and conditions complicating ] Onset: 06-15-20 24 Viral infection (20 sources) Disease caused by 2019-nCoV; Translations: [COVID-19] 06-09-2022 Episodic Past or Other Problems Problem Classification Problem Date Documented Date Episodic/Chronic Abdominal pain (20 sources) Pain in pelvis; Translations: [Pelvic and perineal pain] Onset: 07-20-2024 12-22-2022 Episodic Comment on above: ocp for now Cancer of cervix (20 sources) Cervical intraepithelial neoplasia; 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, unspecified] Onset: 07-20-2024 07-04-2024 Episodic Comment on above: LEEP: HPV changes no piyush, repeat pap in 6 months(11/2024) Fluid and electrolyte disorders (1 source) Hypo-osmolality and hyponatremia; Translations: [Hypo-osmolality and hyponatremia] Onset: 08-18-2024 Episodic Hemorrhage during ; abruptio placenta; placenta previa (1 source) Threatened ; Translations: [Threatened ] Onset: 05-27-2024 Episodic Other non-traumatic joint disorders (1 source) Pain in unspecified ankle and joints of unspecified foot; Translations: [Pain in unspecified ankle and joints of unspecified foot] Onset: 09-15-2024 Episodic Other nutritional; endocrine; and metabolic disorders (1 source) Abnormal weight gain; Translations: [Abnormal weight gain] Onset: 07-25-2024 Episodic Other screening for suspected conditions (not mental disorders or infectious disease) (20 sources) Cardiovascular stress test abnormal; Translations: [Abnormal result of other cardiovascular function study] Onset: 02-01-2025 11-22-2018 Episodic Comment on above: repeat WNL Spontaneous (5 sources) Miscarriage; Translations: [Complete or unspecified spontaneous without complication] Onset: 06-28-2024 06-02-2024 Episodic Results Test Name Value Interpretation Reference Range Facility Cardiology Visit Reporton Cardiology Visit Report [facility] [address] [place] [address]. [address] [place] [address] OFFICE VISIT Date of Service: 05/12/25 MR#: [id number] Acct: [id number] Name: KATIE PULLIAM Rep #: [id number] : 1995 Provider: MERT Alicea Age/Sex: 30/F Location: [facility] Status: Signed HPI HPI History of Present Illness Details: KATIE CHENG, is a 30 year old white female who presents to the office today for outpatient cardiovascular follow up based upon concerns of underlying of congenital pulmonic stenosis. She had previously been followed through [facility]. She did have a transthoracic echocardiogram which appears to have been performed on 07/10/2008. Per their report she was noted to have peripheral pulmonary stenosis which was considered congenital and mild with a normal aortic arch and normal proximal coronary arteries. Overall from a cardiac standpoint she is doing well. She does have some dizziness. She does not have any chest discomfort/heaviness/tightn ess. Her exercise tolerance is stable for her age. She does not have any worsening symptoms of shortness of breath. She does not have any orthopnea. She denies PND. She does not have any symptoms of congestive heart failure. She does not have any palpitations that she is aware of. She does not have any near-syncope or syncope. She does not have any lower extremity edema. She does not have any symptoms of claudication. 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 Is patient in pain?: No Allergies adhesive tape Allergy (Intermediate, Verified 04/13/25 11:10) abrasion Influenza Virus Vaccines Allergy (Intermediate, Verified 04/13/25 11:10) Swelling norethindrone (From Aygestin) Allergy (Intermediate, Verified 04/13/25 11:10) Rash hydrocodone (From Vicodin) Adverse Reaction (Verified 04/13/25 11:10) Other Medications ???Medication ???Instructions ???Recorded ???Confirmed ???Type albuterol sulfate 90 mcg/actuation 2 puff inhalation Q4H PRN 05/12/25 History aerosol inhaler shortness of breath or wheezing multivitamin (Daily Multi-Vitamin 1 tab PO DAILY 06/16/24 05/12/25 History tablet) phentermine 15 mg capsule 15 mg PO QDAY 05/12/25 05/12/25 Hi story semaglutide 2 mg/dose (8 mg/3 mL) 2 mg subcut QWEEK 05/12/25 History subcutaneous pen injector Ejection fraction %: 60 Have you fallen in the past year?: No PFSH Medical History Viral URI RSV (respiratory syncytial virus infection) Acute pharyngitis, unspecified Vasovagal response Vasovagal near syncope Near syncope 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 Wears glasses Wears contact lenses Alcohol use Easy bruising Back pain Difficulty swallowing Diarrhea Non-smoker Leg cramps History of stress test History of echocardiogram Cardiology follow-up encounter Hx of fracture of finger Fertility testing COVID-19 COVID-19 Seasonal allergies Knee pain Fatigue Family history of DVT Abnormal stress test Depression Congenital pulmonic valve stenosis Pancreatitis Heart murmur Headaches, cluster Anxiety Surgical History H/O LEEP Hx of esophagogastroduodenoscopy Hx of wisdom tooth extraction History of appendectomy H/O lateral meniscus repair of left knee Hx of cholecystectomy Hx of right breast biopsy Family History Father Hypertension Myocardial infarction, Onset Age: 32 Grandfather Hypertension Diabetes Myocardial infarction, Onset Age: 53 x2 CAD (coronary artery disease) Grandmother Kidney failure Liver cirrhosis Heart disease Mother Fibrosis of liver Gluten intolerance Other Arthritis Asthma Bleeding disorder CVA (cerebral vascular accident) Cancer Gout Sudden cardiac Thyroid disorder Social History Smoking Status: Never smoker alcohol intake: current alcohol intake frequency: holidays/special occasions only details: social substance use type: does not use caffeine: Yes what type of physical activity do you participate in: walking and running frequency: 5-6 times per week seatbelt use: always do you feel safe at home: Yes additional social history: 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 Normal [facility] Reporton 2024 Chiropractic Report [facility] [address] [place] [address] OFFICE VISIT Date of Service: 04/13/25 MR#: [id number] Acct: [id number] Name: KATIE PULLIAM Rep #: [id number] : 1995 Provider: ARNAUD Cavanaugh Age/Sex: 30/F Location: [facility] Status: Signed Intake Vital Signs 01/27/25 15:33 Height 5 ft 3 in Weight: 254 lb 4 oz BMI 45.0 BP 138/76 H Intake Visit Reasons: BACK PAIN Chief Complaint: neck and low back pain Is patient in pain?: Yes (low back) Pain scale (1-10): 8 Allergies adhesive tape Allergy (Intermediate, Verified 04/13/25 11:10) abrasion Influenza Virus Vaccines Allergy (Intermediate, Verified 04/13/25 11:10) Swelling norethindrone (From Aygestin) Allergy (Intermediate, Verified 04/13/25 11:10) Rash hydrocodone (From Vicodin) Adverse Reaction (Verified 04/13/25 11:10) Other Medications ???Medication ???Instructions ???Recorded ???Confirmed ???Type albuterol sulfate 90 mcg/actuation 2 puff inhalation Q4H PRN 04/13/25 History aerosol inhaler shortness of breath or wheezing multivitamin (Daily Multi-Vitamin 1 tab PO DAILY 06/16/24 04/13/25 History tablet) PFSH Medical History Viral URI RSV (respiratory syncytial virus infection) Acute pharyngitis, unspecified Vasovagal response Vasovagal near syncope Near syncope 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 Wears glasses Wears contact lenses Alcohol use Easy bruising Back pain Difficulty swallowing Diarrhea Non-smoker Leg cramps History of stress test History of echocardiogram Cardiology follow-up encounter Hx of fracture of finger Fertility testing COVID-19 COVID-19 Seasonal allergies Knee pain Fatigue Family history of DVT Abnormal stress test Depression Congenital pulmonic valve stenosis Pancreatitis Heart murmur Headaches, cluster Anxiety Surgical History H/O LEEP Hx of esophagogastroduodenoscopy Hx of wisdom tooth extraction History of appendectomy H/O lateral meniscus repair of left knee Hx of cholecystectomy Hx of right breast biopsy Family History Father Hypertension Myocardial infarction, Onset Age: 32 Grandfather Hypertension Diabetes Myocardial infarction, Onset Age: 53 x2 CAD (coronary artery disease) Grandmother Kidney failure Liver cirrhosis Heart disease Mother Fibrosis of liver Gluten intolerance Other Arthritis Asthma Bleeding disorder CVA (cerebral vascular accident) Cancer Gout Sudden cardiac Thyroid disorder Social History Smoking Status: Never smoker alcohol intake: current alcohol intake frequency: holidays/special occasions only details: social substance use type: does not use caffeine: Yes what type of physical activity do you participate in: walking and running frequency: 5-6 times per week seatbelt use: always do you feel safe at home: Yes additional social history: 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 She complains of increased low back pain over the last weekend. She states she worked the [employer] last wekend and stood for long hours 3 days in a row which has contributed to her low back pain. She rates her low back pain 8/10 and states her pain radiates down her left leg to her knee at times. she also complains of neck stiffness and right shoulder blade pain. She states her right shoulder blade pops at times and is painful when this happens. 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 She uses icy hot patches as well as heat to treat her pain. Being on her feet for long periods and leaning over to draw blood exacerbate her neck stiffness. She states chiropractic adjustments and E-stim are helpful to alleviate her pain. Location: neck, low back Duration: frequent Aggravating or associated factors: standing, bending, walking Relieving factors: chiro Pain Quality: aching, dull and radiating Exam Musc General: Yes normal posture, normal gait, joint tenderness and decreased range of motion Cervical Spine: Yes normal cervical lordosis, Yes cervical muscular tenderness right greater than left lower , Yes cervical spasm left greater than right lower trapezius and paracervical muscles and Yes misalignment misalignment: C5, C6 and C7 Thoracic/Lumber: Yes thoracic and lumbar spine normal to inspection, Yes paraspinal tenderness on the left greater than right (thoracic/lumbar), Yes thoraco-lum (more content not included)... Normal [facility] Insulin Levelon 04-07-2025 INSULIN,FASTING 10.8 uIU/mL Normal 2.6-24.9 [facility] Comment on above: Result Comment: Perf ormed at: - [facility] [address] [id number] Biometric Technician: Roque Soriano PhD, Phone: [phone] Performed By: #### L 100.0100, L506.0400, L3300.3500, L500.4100, L500.4050, L505.5000, L501.9985, L501.9520 ####[facility] [address] [place], [address] Absolute lymphocyte countOrd ered By: [facility] Lala Ybarra on 04-05-2025 Lymphocytes Auto (Unsp spec) [#/Vol] 1.95 10*3/uL 0.83-4.51 [facility] Absolute neutrophil countOrd ered By: [facility] on 04-05-2025 Neutrophils (Bld) [#/Vol] 4.7 10*3/uL 2.0-7.7 [facility] Amphetamine detection with 1 000 ng/mL as cutoffOrdered By: [facility] on 04-05-2025 Amphetamines Screen method >1000 ng/mL Ql (U) Negative < 200 ng/mL [facility] Anion gap in Serum or Plasma Ordered By: [facility] on 04-05-2025 Anion gap [Moles/Vol] 11 mmol/L 5-15 [facility] Automated lymphocyte count a s percentage of total leukocytesOrdered By: [facility] Ybar[facility] on 04-05-2025 Lymphocytes/100 WBC Auto (Unsp spec) 26.9 % 19-41 [facility] BUN/creatinine ratioOrdered By: [facility] on 04-05-2025 Urea nitrogen/Creatinine [Mass ratio] 17.0 mg/mg 10-20 [facility] Basophil percentageOrdered B y: [facility] Lala Ybarra on 04-05-2025 Basophils/100 WBC (Bld) 0.3 % 0-1 [facility] Bilirubin, totalOrdered By: [facility] Ybarra on 04-05-2025 Bilirubin [Mass/Vol] 0.31 mg/dL 0.00-1.30 [facility] CBC W/Diff, Automatedon 03-26 Absolute Lymph 1.95 X10 3/uL Normal 0.83-4.51 [facility] Comment on above: Performed By: #### L 100.0100, L506.0400, L3300.3500, L500.4100, L500.4050, L505.5000, L501.9985, L501.9520 #### [facility] [address] [place], [address] Absolute Neut 4.7 X10 3/uL Normal 2.0-7.7 [facility] Comment on above: Performed By: #### L 100.0100, L506.0400, L3300.3500, L500.4100, L500.4050, L505.5000, L501.9985, L501.9520 #### [facility] [address] [facility] [place], [address] Basophils/100 WBC (Bld) 0.3 % Normal 0-1 [facility] Comment on above: Performed By: #### L 100.0100, L506.0400, L3300.3500, L500.4100, L500.4050, L505.5000, L501.9985, L501.9520 #### [facility] [address] [place], [address] Eosinophils/100 WBC (Bld) 1.5 % Normal 0-5 [facility] Comment on above: Performed By: #### L 100.0100, L506.0400, L3300.3500, L500.4100, L500.4050, L505.5000, L501.9985, L501.9520 #### [facility] [address] [facility] [place] [place], [address] Erythrocyte distribution width (RBC) [Ratio] 13.8 % Normal 11.6-14.6 [facility] Comment on above: Performed By: #### L 100.0100, L506.0400, L3300.3500, L500.4100, L500.4050, L505.5000, L501.9985, L501.9520 #### [facility] [address] [place], [address] Hematocrit (Bld) [Volume fraction] 39.2 % Normal 37-47 [facility] Comment on above: Performed By: #### L 100.0100, L506.0400, L3300.3500, L500.4100, L500.4050, L505.5000, L501.9985, L501.9520 #### [facility] [address] [place], [address] Hemoglobin (Bld) [Mass/Vol] 13.0 g/dL Normal 12.0-15.0 [facility] Comment on above: Performed By: #### L 100.0100, L506.0400, L3300.3500, L500.4100, L500.4050, L505.5000, L501.9985, L501.9520 #### [facility] [address] [place], [address] IG% 0.300 Normal 0.0-0.9 [facility] Comment on above: Result Comment: IG% - Immature Granulocytes (promyelocytes, myelocytes and metamyelocytes) > 1% indicates that a LEFT SHIFT is Present. Performed By: #### L 100.0100, L506.0400, L3300.3500, L500.4100, L500.4050, L505.5000, L501.9985, L501.9520 #### [facility] [address] [place], [address] Lymphocytes/100 WBC (Bld) 26.9 % Normal 19-41 [facility] Comment on above: Performed By: #### L 100.0100, L506.0400, L3300.3500, L500.4100, L500.4050, L505.5000, L501.9985, L501.9520 #### [facility] [address] [place], [address] MCH (RBC) [Entitic mass] 28.0 pg Normal 27.0-32.0 [facility] Comment on above: Performed By: #### L 100.0100, L506.0400, L3300.3500, L500.4100, L500.4050, L505.5000, L501.9985, L501.9520 #### [facility] [address] [place], [address] MCHC (RBC) [Mass/Vol] 33.2 g/dL Normal 32-36 [facility] Comment on above: Performed By: #### L 100.0100, L506.0400, L3300.3500, L500.4100, L500.4050, L505.5000, L501.9985, L501.9520 #### [facility] [address] [facility] [place] [place], [address] MCV (RBC) [Entitic vol] 84.5 fL Normal 81-99 [facility] Comment on above: Performed By: #### L 100.0100, L506.0400, L3300.3500, L500.4100, L500.4050, L505.5000, L501.9985, L501.9520 #### [facility] [address] [facility] [place], [address] Monocytes/100 WBC (Bld) 6.3 % Normal 0-10 [facility] Comment on above: Performed By: #### L 100.0100, L506.0400, L3300.3500, L500.4100, L500.4050, L505.5000, L501.9985, L501.9520 #### [facility] [address] [place], [address] Neutrophils/100 WBC (Bld) 64.7 % Normal 47-70 [facility] Comment on above: Performed By: #### L 100.0100, L506.0400, L3300.3500, L500.4100, L500.4050, L505.5000, L501.9985, L501.9520 #### [facility] [address] [place], [address] Nucleated RBC (Bld) [#/Vol] 0 10*3/uL Normal 0-5 [facility] Comment on above: Performed By: #### L 100.0100, L506.0400, L3300.3500, L500.4100, L500.4050, L505.5000, L501.9985, L501.9520 #### [facility] [address] [place], [address] Platelet mean volume (Bld) [Entitic vol] 11.8 fL Normal 6.2-12.0 [facility] Comment on above: Performed By: #### L 100.0100, L506.0400, L3300.3500, L500.4100, L500.4050, L505.5000, L501.9985, L501.9520 #### [facility] [address] [place], [address] Platelets (Bld) [#/Vol] 293 10*3/uL Normal 150-450 [facility] Comment on above: Performed By: #### L 100.0100, L506.0400, L3300.3500, L500.4100, L500.4050, L505.5000, L501.9985, L501.9520 #### [facility] [address] [place], [address] RBC (Bld) [#/Vol] 4.64 10*6/uL Normal 4.2-5.4 [facility] Comment on above: Performed By: #### L 100.0100, L506.0400, L3300.3500, L500.4100, L500.4050, L505.5000, L501.9985, L501.9520 #### [facility] [address] [place], [address] RDW SD 42.2 fl Normal 35.1-43.9 [facility] Comment on above: Performed By: #### L 100.0100, L506.0400, L3300.3500, L500.4100, L500.4050, L505.5000, L501.9985, L501.9520 #### [facility] [address] [place], [address] WBC (Bld) [#/Vol] 7.3 10*3/uL Normal 4.4-11.0 [facility] Comment on above: Performed By: #### L 100.0100, L506.0400, L3300.3500, L500.4100, L500.4050, L505.5000, L501.9985, L501.9520 #### [facility] [address] [place], [place], [address] Calculated very low density lipoprotein (VLDL) cholesterol measurementOrdered By: [facility] Lala Ybarra on 04-05-2025 Calculated very low density lipoprotein (VLDL) cholesterol measurement 16 mg/dL 5-40 [facility] Carbon dioxide, total [Moles /volume] in Central venous bloodOrdered By: [facility] Lala Ybarra on 04-05-2025 CO2 [Moles/Vol] 19.5 mmol/L Low 21.0-32.0 [facility] Chloride assayOrdered By: [facility] Lala Ybarra on 04-05-2025 Chloride [Moles/Vol] 107 mmol/L 98-108 [facility] Comprehensive Metabolic Prof ilon 04-05-2025 Albumin [Mass/Vol] 4.0 g/dL Normal 3.5-5.0 [facility] Comment on above: Performed By: #### L 100.0100, L506.0400, L3300.3500, L500.4100, L500.4050, L505.5000, L501.9985, L501.9520 #### [facility] [address] [place], [place], [address] Albumin/Globulin [Mass ratio] 1.3 {ratio} Normal 0.9-2.4 [facility] Comment on above: Performed By: #### L 100.0100, L506.0400, L3300.3500, L500.4100, L500.4050, L505.5000, L501.9985, L501.9520 #### [facility] [address] [place], [address] ALK PHOS 76 U/L Normal 35-104 [facility] Comment on above: Performed By: #### L 100.0100, L506.0400, L3300.3500, L500.4100, L500.4050, L505.5000, L501.9985, L501.9520 #### [facility] [address] [place], [address] ALT [Catalytic activity/Vol] 14 U/L Normal <=34 [facility] Comment on above: Performed By: #### L 100.0100, L506.0400, L3300.3500, L500.4100, L500.4050, L505.5000, L501.9985, L501.9520 #### [facility] [address] [place], [place], [id number] (774) AST [Catalytic activity/Vol] 21 U/L Normal <=31 [facility] Comment on above: Performed By: #### L 100.0100, L506.0400, L3300.3500, L500.4100, L500.4050, L505.5000, L501.9985, L501.9520 #### [facility] [address] [place], [address] Bilirubin [Mass/Vol] 0.31 mg/dL Normal 0.00-1.30 [facility] Comment on above: Performed By: #### L 100.0100, L506.0400, L3300.3500, L500.4100, L500.4050, L505.5000, L501.9985, L501.9520 #### [facility] [address] [place], [address] BUN/CRE 17.0 RATIO Normal 10-20 [facility] Comment on above: Performed By: #### L 100.0100, L506.0400, L3300.3500, L500.4100, L500.4050, L505.5000, L501.9985, L501.9520 #### [facility] [address] [place], [address] Calcium [Mass/Vol] 8.9 mg/dL Normal 7.6-11.0 [facility] Comment on above: Performed By: #### L 100.0100, L506.0400, L3300.3500, L500.4100, L500.4050, L505.5000, L501.9985, L501.9520 #### [facility] [address] [place], [address] Chloride [Moles/Vol] 107 mmol/L Normal 98-108 [facility] Comment on above: Performed By: #### L 100.0100, L506.0400, L3300.3500, L500.4100, L500.4050, L505.5000, L501.9985, L501.9520 #### [facility] [address] [place], [address] CO2 [Moles/Vol] 19.5 mmol/L Low 21.0-32.0 [facility] Comment on above: Performed By: #### L 100.0100, L506.0400, L3300.3500, L500.4100, L500.4050, L505.5000, L501.9985, L501.9520 #### [facility] [address] [place], [address] Creatinine [Mass/Vol] 0.64 mg/dL Low 0.70-1.20 [facility] Comment on above: Performed By: #### L 100.0100, L506.0400, L3300.3500, L500.4100, L500.4050, L505.5000, L501.9985, L501.9520 #### [facility] [address] [place], [address] GAP 11 Normal 5-15 [facility] Comment on above: Performed By: #### L 100.0100, L506.0400, L3300.3500, L500.4100, L500.4050, L505.5000, L501.9985, L501.9520 #### [facility] [address] [place], [address] GFR/1.73 sq M.predicted among non-blacks MDRD (S/P/Bld) [Vol rate/Area] 123 mL/min/{1.73_m2} Normal >60 [facility] Comment on above: Result Comment: mL/m in/1.73m2 CKD-EPI Creatinine Equation (2020) Performed By: #### L 100.0100, L506.0400, L3300.3500, L500.4100, L500.4050, L505.5000, L501.9985, L501.9520 #### [facility] [address] [place], [address] Globulin (S) [Mass/Vol] 3.1 g/dL Normal 2.2-4.2 [facility] Comment on above: Performed By: #### L 100.0100, L506.0400, L3300.3500, L500.4100, L500.4050, L505.5000, L501.9985, L501.9520 #### [facility] [address] [place], [address] Glucose [Mass/Vol] 92 mg/dL Normal 70-99 [facility] Comment on above: Performed By: #### L 100.0100, L506.0400, L3300.3500, L500.4100, L500.4050, L505.5000, L501.9985, L501.9520 #### [facility] [address] [place], [address] Potassium [Moles/Vol] 4.0 mmol/L Normal 3.3-5.1 [facility] Comment on above: Performed By: #### L 100.0100, L506.0400, L3300.3500, L500.4100, L500.4050, L505.5000, L501.9985, L501.9520 #### [facility] [address] [place], [address] Sodium [Moles/Vol] 138 mmol/L Normal 133-145 [facility] Comment on above: Performed By: #### L 100.0100, L506.0400, L3300.3500, L500.4100, L500.4050, L505.5000, L501.9985, L501.9520 #### [facility] [address] [place], [address] T PROT 7.1 g/dL Normal 5.9-8.4 [facility] Comment on above: Performed By: #### L 100.0100, L506.0400, L3300.3500, L500.4100, L500.4050, L505.5000, L501.9985, L501.9520 #### [facility] [address] [place], [address] Urea nitrogen [Mass/Vol] 11 mg/dL Normal 4-19 [facility] Comment on above: Performed By: #### L 100.0100, L506.0400, L3300.3500, L500.4100, L500.4050, L505.5000, L501.9985, L501.9520 #### [facility] [address] [place], [address] Eosinophil percentageOrdered By: [facility] Lala Ybarra on 04-05-2025 Eosinophils/100 WBC (Bld) 1.5 % 0-5 [facility] Erythrocyte distribution wid th ratioOrdered By: [facility] Lala Ybarra on 04-05-2025 Erythrocyte distribution width (RBC) [Ratio] 13.8 % 11.6-14.6 [facility] Erythrocyte distribution wid th standard deviationOrdered By: [facility] Lala Ybarra on 04-05-2025 Erythrocyte distribution width (RBC) [Ratio] 42.2 fl 35.1-43.9 [facility] Glomerular filtration rate ( GFR) estimation/1.73 sq m using serum, plasma, or whole bOrdered By: [facility] Lala Ybarra on 04-05-2025 GFR/1.73 sq M.predicted among non-blacks MDRD (S/P/Bld) [Vol rate/Area] 123 mL/min/{1.73_m2} >60 [facility] Comment on above: mL/min/1.73m2 CKD-EP I Creatinine Equation (2020) Hematocrit Auto (Bld) [Volum e fraction]Ordered By: [facility] Lala Ybarra on 04-05-2025 Hematocrit (Bld) [Volume fraction] 39.2 % 37-47 [facility] Hemoglobin A1con 04-05-2025 HbA1c (Bld) [Mass fraction] 5.6 % Normal <=5.6 [facility] Comment on above: Result Comment: Norm al < 5.7 % Prediabetic 5.7 - 6.4 % Diabetic >or= 6.5 % Please note range changes. Performed By: #### L 100.0100, L506.0400, L3300.3500, L500.4100, L500.4050, L505.5000, L501.9985, L501.9520 #### [facility] [facility], [address] Hemoglobin A1c percentageOrd ered By: [facility] Lala Ybarra on 04-05-2025 HbA1c (Bld) [Mass fraction] 5.6 % <5.7 [facility] Comment on above: Normal < 5.7 % Predi abetic 5.7 - 6.4 % Diabetic >or= 6.5 % Please note range changes. Hemoglobin measurementOrdere d By: [facility] Lala Ybarra on 04-05-2025 Hemoglobin (Bld) [Mass/Vol] 13.0 g/dL 12.0-15.0 [facility] Immature granulocytes/100 WB C Auto (Bld)Ordered By: [facility] Tate on 04-05-2025 Immature granulocytes/100 WBC (Bld) 0.300 % 0.0-0.9 [facility] Comment on above: IG% - Immature Granu locytes (promyelocytes, myelocytes and metamyelocytes) > 1% indicates that a LEFT SHIFT is Present. LDL calc ser/plasOrdered By: [facility] on 04-05-2025 Cholesterol in LDL [Mass/Vol] 95 mg/dL [facility] Comment on above: Vxkfjdbsfj=675-339 m g/dL & Higher Xnhl=439 mg/dL or greater Laboratory - Chemistry and C hemistry - challengeOrdered By: [facility] on 04-05-2025 AST [Catalytic activity/Vol] 21 U/L <32 [facility] Lipid Profileon 04-05-2025 CHOL:HDL 3.25 Normal [facility] Comment on above: Performed By: #### L 100.0100, L506.0400, L3300.3500, L500.4100, L500.4050, L505.5000, L501.9985, L501.9520 #### [facility] [address] [place], [address] Cholesterol [Mass/Vol] 161 mg/dL Normal <=200 [facility] Comment on above: Result Comment: Chol esterol level, Desirable <200 mg/dL Borderline high cholesterol 200-239 mg/dL High cholesterol >=240 mg/dL Recommendations of the NCEP Adult Treatment Panel for the following risk-cutoff thresholds for the [place] population. Performed By: #### L 100.0100, L506.0400, L3300.3500, L500.4100, L500.4050, L505.5000, L501.9985, L501.9520 #### [facility] [address] [place], [address] Cholesterol in HDL [Mass/Vol] 50 mg/dL Normal [facility] Comment on above: Result Comment: Mishel onal Cholesterol Education Program (NCEP) guidelines: <40 mg/dL: Low HDL-cholesterol (major risk factor for CHD) >= 60 mg/dL: High HDL-cholesterol (negative risk factor for CHD) HDL-cholesterol is affected by a number of factors, e.g. smoking, exercise, hormones, sex and age. Performed By: #### L 100.0100, L506.0400, L3300.3500, L500.4100, L500.4050, L505.5000, L501.9985, L501.9520 #### [facility] [address] [place], [address] Cholesterol in LDL [Mass/Vol] 95 mg/dL Normal [facility] Comment on above: Result Comment: Bord rxaaeb=830-643 mg/dL Higher Aqqo=231 mg/dL or greater Performed By: #### L 100.0100, L506.0400, L3300.3500, L500.4100, L500.4050, L505.5000, L501.9985, L501.9520 #### [facility] [address] [place], [address] Cholesterol in VLDL [Mass/Vol] 16 mg/dL Normal 5-40 [facility] Comment on above: Performed By: #### L 100.0100, L506.0400, L3300.3500, L500.4100, L500.4050, L505.5000, L501.9985, L501.9520 #### [facility] [address] [place], [address] Triglyceride [Mass/Vol] 80 mg/dL Normal [facility] Comment on above: Result Comment: The drugs N-Acetylcysteine and Metamizole may falsely depress this assay. Normal range: <150 mg/dL Borderline High: 150-199 mg/dL High: 200-499 mg/dL Very High: >500 mg/dL Performed By: #### L 100.0100, L506.0400, L3300.3500, L500.4100, L500.4050, L505.5000, L501.9985, L501.9520 #### [facility] [address] [place], [address] MCV (mean corpuscular volume ) determinationOrdered By: [facility] Lala Ybarra on 04-05-2025 MCV (RBC) [Entitic vol] 84.5 fL 81-99 [facility] Mean corpuscular hemoglobin (MCH) determinationOrdered By: [facility] Lala Ybarra on 04-05-2025 MCH (RBC) [Entitic mass] 28.0 pg 27.0-32.0 [facility] Mean corpuscular hemoglobin concentration (MCHC) determinationOrdered By: [facility] Lala Ybarra on 04-05-2025 MCHC (RBC) [Mass/Vol] 33.2 g/dL 32-36 [facility] Mean platelet volume determi nationOrdered By: [facility] Lala Ybarra on 04-05-2025 Platelet mean volume (Bld) [Entitic vol] 11.8 fL 6.2-12.0 [facility] Monocyte percentageOrdered B y: [facility] Lala Ybarra on 04-05-2025 Monocytes/100 WBC (Bld) 6.3 % 0-10 [facility] Neutrophil percentageOrdered By: [facility] Lala Ybarra on 04-05-2025 Neutrophils/100 WBC (Bld) 64.7 % 47-70 [facility] No Panel InformationOrdered By: [facility] Lala Ybarra on 04-05-2025 Urine Buprenorphine Qualitative Negative < 200 ng/mL [facility] Urine Oxycodone Screen Negative < 100 ng/mL [facility] Nucleated red blood cell per centageOrdered By: [facility] Lala Ybarra on 04-05-2025 Nucleated RBC/100 WBC (Bld) [Ratio] 0 % 0-5 [facility] Office Visit Reporton 2024 Office Visit Report [facility] [address] [place] [address] OFFICE VISIT Date of Service: 12/29/24 MR#: [id number] Acct: [id number] Patient: KATIE PULLIAM Rep #: [id number] : 1995 Provider: UZIEL Drake Age/Sex: 30/F Location: [facility] Status: Signed Intake Vital Signs 12/07/24 09:08 Height 5 ft 2 in 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/ [facility] Chief Complaint: 6Month FU Allergies adhesive tape Allergy (Intermediate, Verified 04/13/25 11:10) abrasion Influenza Virus Vaccines Allergy (Intermediate, Verified 04/13/25 11:10) Swelling norethindrone (From Aygestin) Allergy (Intermediate, Verified 04/13/25 11:10) Rash hydrocodone (From Vicodin) Adverse Reaction (Verified 04/13/25 11:10) Other Office Procedures [facility] Billing Sheet Covid Covid Swab-Rapid: Yes Results POC CEPH COV,FluAB,RSV PCR CEPHEID COVID PCR Not DETECTED Last Edit by Isabella Maynard on 12/29/24 13:50 CEPHEID FLU AB PCR NOT DETECTED FLU A B Last Edit by Isabella Maynard on 12/29/24 13:50 CEPHEID RSV PCR NOT DETECTED Last Edit by Isabella [place]nard on 12/29/24 13:50 Assessment and Plan Plan Details Goals Barriers: Goals Decrease pain Increase ROM Decrease spasm 04/26/25 0612 Date Demario London Signature: Date (if applicable) CC: Normal [facility] Platelet countOrdered By: BERTIN Ybarra on 04-05-2025 Platelets (Bld) [#/Vol] 293 10*3/uL 150-450 [facility] Potassium measurement (mass/ volume)Ordered By: ESTUARDO Ybarra on 04-05-2025 Potassium (Unsp spec) [Mass/Vol] 4.0 mmol/L 3.3-5.1 [facility] Quantitative urine opiates m easurementOrdered By: [facility] Lala Ybarra on 04-05-2025 Opiates Ql (U) Negative < 300 ng/mL [facility] RBC Auto (Bld) [#/Vol]Ordere d By: [facility] Lala Ybarra on 04-05-2025 RBC (Bld) [#/Vol] 4.64 10*6/uL 4.2-5.4 [facility] Screening total cholesterol/ high density lipoprotein (HDL) cholesterol ratioOrdered By: [facility] Lala Ybarra on 04-05-2025 Cholesterol.total/Dotty sterol in HDL [Mass ratio] 3.25 {ratio} [facility] Screening urine fentanyl thierno surementOrdered By: [facility] Lala Ybarra on 04-05-2025 fentaNYL Screen Ql (U) Negative [facility] Serum creatinine measurement (mass/volume)Ordered By: [facility] Llaa Ybarra on 04-05-2025 Creatinine [Mass/Vol] 0.64 mg/dL Low 0.70-1.20 [facility] Serum globulin measurementOr dered By: [facility] Lala Ybarra on 04-05-2025 Globulin (S) [Mass/Vol] 3.1 g/dL 2.2-4.2 [facility] Serum glucose measurement (m ass/volume)Ordered By: [facility] Lala Ybarra on 04-05-2025 Glucose [Mass/Vol] 92 mg/dL 70-99 [facility] Serum or plasma alanine perrin otransferase (ALT) measurementOrdered By: [facility] Lala Ybarra on 04-05-2025 ALT [Catalytic activity/Vol] 14 U/L <35 [facility] Serum or plasma albumin raad urement (mass/volume)Ordered By: [facility] Lala Ybarra on 04-05-2025 Albumin [Mass/Vol] 4.0 g/dL 3.5-5.0 [facility] Serum or plasma albumin/glob ulin mass ratioOrdered By: [facility] Lala Ybarra on 04-05-2025 Albumin/Globulin [Mass ratio] 1.3 {ratio} 0.9-2.4 [facility] Serum or plasma alkaline peterson sphatase measurementOrdered By: [facility] Lalayina Ybarra on 04-05-2025 ALP [Catalytic activity/Vol] 76 U/L 35-104 [facility] [facility] Serum or plasma calcium raad urement (mass/volume)Ordered By: [facility] Healthcare[facility]ala Tate on 04-05-2025 Calcium [Mass/Vol] 8.9 mg/dL 7.6-11.0 [facility] Serum or plasma cholesterol in HDL measurement (mass/volume)Ordered By: [facility] HealthcareLalayina Ybarra on 04-05-2025 Cholesterol in HDL [Mass/Vol] 50 mg/dL >40 [facility] Comment on above: National Cholesterol Education Program (NCEP) guidelines:<40 mg/dL: Low HDL-cholesterol (major risk factor for CHD)>= 60 mg/dL: High HDL-cholesterol (negative risk factor for CHD)HDL-cholesterol is affected by a number of factors, e.g. smoking, exercise, hormones, sex and age. Serum or plasma cholesterol measurement (mass/volume)Ordered By: [facility] HealthcareLala Tate on 04-05-2025 Cholesterol [Mass/Vol] 161 mg/dL <201 [facility] Comment on above: Cholesterol level, D esirable <200 mg/dLBorderline high cholesterol 200-239 mg/dLHigh cholesterol >=240 mg/dLRecommendations of the NCEP Adult Treatment Panel for the following risk-cutoff thresholds for the [place] population. Serum or plasma insulin raad urement (mass/volume)Ordered By: [facility] Lala Tate on 04-05-2025 Insulin [Mass/Vol] 10.8 uIU/mL 2.6-24.9 [facility] Comment on above: Performed at: [facility] [employer] [address] [id number] Director: Roque Soriano PhD, Phone: [phone] Serum or plasma urea nitroge n measurement (mass/volume)Ordered By: [facility] HealthcareLalarene Ybarra on 04-05-2025 Urea nitrogen [Mass/Vol] 11 mg/dL 4-19 [facility] Sodium levelOrdered By: [facility] HealthcareLalayina Ybarra on 04-05-2025 Sodium [Moles/Vol] 138 mmol/L 133-145 [facility] T4 Free Directon 04-05-2025 T4 FREE DIRECT 0.90 ng/dL Normal 0.76-1.46 [facility] Comment on above: Performed By: #### L 100.0100, L506.0400, L3300.3500, L500.4100, L500.4050, L505.5000, L501.9985, L501.9520 ####[facility] [address] [place], [address] T4 freeOrdered By: [facility] Jeni Ybarra on 04-05-2025 Free T4 [Mass/Vol] 0.90 ng/dL 0.76-1.46 [facility] TSH DL <= 0.005 mIU/L QnOrde red By: [facility] Lala Ybarra on 04-05-2025 TSH Qn 2.050 uIU/mL 0.300-4.20 0 [facility] Thyroid Stim Hormone (TSH)on 04-05-2025 TSH 2.050 uIU/mL Normal 0.300-4.20 0 [facility] Comment on above: Performed By: #### L 100.0100, L506.0400, L3300.3500, L500.4100, L500.4050, L505.5000, L501.9985, L501.9520 #### [facility] [address] [place], [address] Total proteinOrdered By: [facility] Lala Ybarra on 04-05-2025 Protein [Mass/Vol] 7.1 g/dL 5.9-8.4 [facility] Triglycerides measurementOrd ered By: [facility] Lala Ybarra on 04-05-2025 Triglyceride [Mass/Vol] 80 mg/dL <199 [facility] Comment on above: The drugs N-Acetylcy steine and Metamizole may falsely depress this assay. Normal range: <150 mg/dLBorderline High: 150-199 mg/dLHigh: 200-499 mg/dLVery High: >500 mg/dL Urine Drug Screen (VISTA)on 04-05-2025 AMPHETAMINES Negative Normal <1000 ng/mL [facility] Comment on above: Order Comment: UNK Performed By: #### L 100.0100, L506.0400, L3300.3500, L500.4100, L500.4050, L505.5000, L501.9985, L501.9520 #### [facility] [address] [place], [address] BARBITIURATES Negative Normal < 200 ng/mL [facility] Comment on above: Order Comment: UNK Performed By: #### L 100.0100, L506.0400, L3300.3500, L500.4100, L500.4050, L505.5000, L501.9985, L501.9520 #### [facility] [address] [place], [place], [phone] ([phone] BENZODIAZIPINE Negative Normal < 200 ng/mL [facility] Comment on above: Order Comment: UNK Performed By: #### L 100.0100, L506.0400, L3300.3500, L500.4100, L500.4050, L505.5000, L501.9985, L501.9520 #### [facility] [address] [place], [place], [id number] BUP Ur Drug Scr Negative Normal < 200 ng/mL [facility] Comment on above: Order Comment: UNK Performed By: #### L 100.0100, L506.0400, L3300.3500, L500.4100, L500.4050, L505.5000, L501.9985, L501.9520 #### [facility] [address] [place], [place], [id number] COCAINE Negative Normal < 300 ng/mL [facility] Comment on above: Order Comment: UNK Performed By: #### L 100.0100, L506.0400, L3300.3500, L500.4100, L500.4050, L505.5000, L501.9985, L501.9520 #### [facility] [address] [place], [address] Fentanyl Negative Normal [facility] Comment on above: Order Comment: UNK Performed By: #### L 100.0100, L506.0400, L3300.3500, L500.4100, L500.4050, L505.5000, L501.9985, L501.9520 #### [facility] [address] [place], [address] METHADONE Negative Normal < 300 ng/mL [facility] Comment on above: Order Comment: UNK Performed By: #### L 100.0100, L506.0400, L3300.3500, L500.4100, L500.4050, L505.5000, L501.9985, L501.9520 #### [facility] [place], [address] OPIATES Negative Normal < 300 ng/mL [facility] Comment on above: Order Comment: UNK Performed By: #### L 100.0100, L506.0400, L3300.3500, L500.4100, L500.4050, L505.5000, L501.9985, L501.9520 #### [facility] [address] [place], [address] OXYCODONE Negative Normal < 100 ng/mL [facility] Comment on above: Order Comment: UNK Performed By: #### L 100.0100, L506.0400, L3300.3500, L500.4100, L500.4050, L505.5000, L501.9985, L501.9520 #### [facility] [address] [place], [address] PCP Negative Normal < 25 ng/mL [facility] Comment on above: Order Comment: UNK Performed By: #### L 100.0100, L506.0400, L3300.3500, L500.4100, L500.4050, L505.5000, L501.9985, L501.9520 #### [facility] [address] [place], [address] THC Negative Normal < 50 ng/mL [facility] Comment on above: Order Comment: UNK Performed By: #### L 100.0100, L506.0400, L3300.3500, L500.4100, L500.4050, L505.5000, L501.9985, L501.9520 #### [facility] [address] [place], [address] Urine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 L3300.3500, L500.4100, L500.4050, L505.5000, L501.9985, L501.9520 #### [facility] [address] [place], [place], [address] TESTOSTER,TOTAL 31 ng/dL Normal 13-71 [facility] Comment on above: Order Comment: UNK Performed By: #### L 100.0100, L506.0400, L3300.3500, L500.4100, L500.4050, L505.5000, L501.9985, L501.9520 #### [facility] [address] [place], [address] TESTOSTERONE,%F 1.55 Normal 0.50-2.80 [facility] Comment on above: Order Comment: UNK Performed By: #### L 100.0100, L506.0400, L3300.3500, L500.4100, L500.4050, L505.5000, L501.9985, L501.9520 #### [facility] [address] [facility] [place], [address] CORTISOL SERUMon 10-06-2024 CORTISOL 20.00 ug/dL Normal 3.44-22.45 [facility] Comment on above: Result Comment: Adul t (AM) 5.27 - 22.45 ug/dL Adult (PM) 3.44 - 16.76 ug/dL Performed By: #### L 100.0100, L506.0400, L3300.3500, L500.4100, L500.4050, L505.5000, L501.9985, L501.9520 #### [facility] [address] [facility] [place], [place], [id number] Cortisol [Mass/Vol]Ordered B y: Vivienne East on 10-06-2024 Cortisol 20.00 ug/dL 3.44-22.45 [facility] Comment on above: Adult (AM) 5.27 - 22 .45 ug/dL Adult (PM) 3.44 - 16.76 ug/dL Estradiolon 10-06-2024 ESTRADIOL 37.3 pg/mL Normal [facility] Comment on above: Result Comment: NORM AL REFERENCE RANGES FEMALE FOLLICULAR 21.4 - 164.8 pg/mL MID-CYCLE PEAK 49.9 - 367.2 pg/mL LUTEAL 40.2 - 259.0 pg/mL POST-MENOPAUSAL ON MHT <11.0 - 462.1 pg/mL NOT ON MHT <11.0 - 58.3 pg/mL MALE <11.0 - 52.5 pg/mL NOTE: [facility] HAS CONFIRMED THE DRUG FULVETRANT (FASLODEX) MAY CAUSE FALSELY ELEVATED ESTRADIOL RESULTS WHEN USING THIS TEST METHOD. IF PATIENT IS TAKING FULVESTRANT AN ALTERNATIVE METHOD SHOULD BE USED TO DETERMINE ESTRADIOL CONCENTRATION. Performed By: #### L 100.0100, L506.0400, L3300.3500, L500.4100, L500.4050, L505.5000, L501.9985, L501.9520 #### [facility] [address] [place], [address] Estradiol measurementOrdered By: Vivienne East on 10-06-2024 Estradiol (E2) Level 37.3 pg/mL [facility] Comment on above: NORMAL REFERENCE RAN GES FEMALE FOLLICULAR 21.4 - 164.8 pg/mL MID-CYCLE PEAK 49.9 - 367.2 pg/mL LUTEAL 40.2 - 259.0 pg/mL POST-MENOPAUSAL ON MHT <11.0 - 462.1 pg/mL NOT ON MHT <11.0 - 58.3 pg/mL MALE <11.0 - 52.5 pg/mL NOTE:[facility] HAS CONFIRMED THE DRUG FULVETRANT (FASLODEX) MAY CAUSE FALSELY ELEVATED ESTRADIOL RESULTS WHEN USING THIS TEST METHOD. IF PATIENT IS TAKING FULVESTRANT AN ALTERNATIVE METHOD SHOULD BE USED TO DETERMINE ESTRADIOL CONCENTRATION. FSH and LHon 10-06-2024 FSH 6.1 mIU/mL Normal [facility] Comment on above: Result Comment: NORMAL REFERENCE RANGES FEMALE FOLLICULAR 2.3 - 12.6 mIU/mL MID-CYCLE PEAK 5.2 - 17.5 mIU/mL LUTEAL 1.7 - 12.9 mIU/mL POST-MENOPAUSAL ON MHT 5.9 - 72.8 mIU/mL NOT ON MHT 12.7 - 132.2 mlU/mL MALE 0.7 - 10.8 mIU/mL Performed By: #### L 100.0100, L506.0400, L3300.3500, L500.4100, L500.4050, L505.5000, L501.9985, L501.9520 #### [facility] [address] [place], [address] LH 13.8 mIU/mL Normal [facility] Comment on above: Result Comment: NORMAL REFERENCE RANGES FEMALE FOLLICULAR 1.9 - 26.2 mIU/mL MID-CYCLE PEAK 22.8 - 76.1 mIU/mL LUTEAL 0.6 - 16.6 mIU/mL POST-MENOPAUSAL ON MHT 1.1 - 52.4 mIU/mL NOT ON MHT 8.6 - 61.8 mIU/mL MALE 1.2 - 10.6 mIU/mL Performed By: #### L 100.0100, L506.0400, L3300.3500, L500.4100, L500.4050, L505.5000, L501.9985, L501.9520 #### [facility] [address] [place], [place], [address] Follicle stimulating hormone (FSH) levelOrdered By: Vivienne East on 10-06-2024 Follicle Stimulating Hormone 6.1 mIU/mL [facility] Comment on above: NORMAL REFERENCE RAN GES FEMALE FOLLICULAR 2.3 - 12.6 mIU/mL MID-CYCLE PEAK 5.2 - 17.5 mIU/mL LUTEAL 1.7 - 12.9 mIU/mL POST-MENOPAUSAL ON MHT 5.9 - 72.8 mIU/mL NOT ON MHT 12.7 - 132.2 mlU/mL MALE 0.7 - 10.8 mIU/mL Luteinizing hormone measurem entOrdered By: Vivienne East on 10-06-2024 Luteinizing Hormone 13.8 mIU/mL [facility] Comment on above: NORMAL REFERENCE RAN GES FEMALE FOLLICULAR 1.9 - 26.2 mIU/mL MID-CYCLE PEAK 22.8 - 76.1 mIU/mL LUTEAL 0.6 - 16.6 mIU/mL POST-MENOPAUSAL ON MHT 1.1 - 52.4 mIU/mL NOT ON MHT 8.6 - 61.8 mIU/mL MALE 1.2 - 10.6 mIU/mL Prolactin [Mass/Vol]Ordered By: Vivienne East on 10-06-2024 Prolactin 18.4 ng/mL 4.8-33.4 [facility] Comment on above: Performed at: - [facility] [address] [id number] Director: Roque Soriano PhD, Phone: [phone] at: - [facility] [id number] Director: Stefano Lopez MD, Phone: [phone] TSH QnOrdered By: Vivienne gonzalez on 10-06-2024 Thyroid Stimulating Hormone (TSH) 2.460 uIU/mL 0.358-3.74 0 [facility] Testosterone Free [Mass/Vol] Ordered By: Vivienne East on 10-06-2024 Free Testosterone 0.48 ng/dL 0.10-0.85 [facility] Testosterone Free/Testostero ne.total [Mass fraction]Ordered By: Vivienne East on 10-06-2024 Percent Free Testosterone 1.55 % 0.50-2.80 [facility] Testosterone, totalOrdered B y: Vivienne East on 10-06-2024 Testosterone [Mass/Vol] 31 ng/dL 13- [facility] Thyroid Stim Hormone (TSH)on 10-06-2024 TSH 2.460 uIU/mL Normal 0.358-3.74 0 [facility] Comment on above: Performed By: #### L 100.0100, L506.0400, L3300.3500, L500.4100, L500.4050, L505.5000, L501.9985, L501.9520 #### [facility] [address] [facility] [place], [place], [address] Lower Ext Joint Only (Routin e)on 09-10-2024 Lower Ext Joint Only (Routine) [facility] [address] [place], [place] [address] (220) Lower Ext Joint Only (Routine) MR#: [id number] Acct: [id number] Name: KATIE PULLIAM Rep #: [id number] : 1995 F 29 From: Wilfredo smith DO PCP: ESTUARDO Farah, INPATIENT CARE MANAGER RN-C Status: REG CLI Study: Lower Ext Joint Only (Routine) Date of Exam: 11/10/23 Exam# [id number] Ordering Dr: Vivienne East [facility] D O 2:[id number] EXAM: MR LEFT LOWER EXTREMITY WITHOUT INTRAVENOUS CONTRAST, ANKLE CLINICAL INDICATION: PAIN TECHNIQUE: Multiplanar and multisequence MR images of the left ankle without intravenous contrast. COMPARISON: Ankle radiographs, 07/28/2024. FINDINGS: LIGAMENTS: ANTERIOR TALOFIBULAR: No significant abnormality. Intact. POSTERIOR TALOFIBULAR: No significant abnormality. Intact. ANTERIOR TIBIOFIBULAR: No significant abnormality. Intact. POSTERIOR TIBIOFIBULAR: No significant abnormality. Intact. CALCANEOFIBULAR: No significant abnormality. Intact. DELTOID: No significant abnormality. Intact. SPRING: No significant abnormality. Intact. LISFRANC: No significant abnormality. Intact. TENDONS: ACHILLES: No significant abnormality. Intact. FLEXOR: No significant abnormality. Intact. EXTENSOR: No significant abnormality. Intact. PERONEAL: No significant abnormality. Intact. TIBIALIS ANTERIOR: No significant abnormality. Intact. TIBIALIS POSTERIOR: No significant abnormality. Intact. MUSCLES: No significant abnormality. Normal bulk and signal. FLUID: Trace tibiotalar joint effusion. SINUS TARSI: No significant abnormality. Normal fat in the sinus tarsi. TARSAL TUNNEL: No significant abnormality. PLANTAR FASCIA: No significant abnormality. Intact. CARTILAGE: No significant abnormality. No osteochondral lesion. Articular cartilage intact. BONES/JOINTS: No significant abnormality. Talar dome intact. No fracture or marrow edema. OTHER SOFT TISSUES: No significant abnormality. MRI/Lower Ext Joint Only (Routine) IMPRESSION: Trace tibiotalar joint effusion. Otherwise, no acute abnormalities. Electronically Signed: Wilfredo Carlson DO at 15:25 [facility] , CC: [facility] UZIEL Ybarra; Vivienne East DO Airways Control Specialist: Signed Normal [facility] Ankle min 3 Viewson 07-28-20 24 Ankle min 3 Views [facility] [address] [place] [address] Ankle min 3 Views MR#: [id number] Acct: [id number] Name: KATIE PULLIAM Rep #: [id number] : 1995 F 29 From: Calli foley MD PCP: Lala Ybarra [facility], INPATIENT CARE MANAGER RN-C Status: REG CLI Study: Ankle min 3 Views Date of Exam: 07/28/24 Exam# [id number] Ordering Dr: Lala Ybarra [facility] INPATIENT CARE MANAGER RN-C 9:[id number] HISTORY: SPRAIN. TECHNIQUE: XR Ankle Min 3 Views. COMPARISON: None. FINDINGS: BONES : No acute fracture identified. Mineralization unremarkable. JOINTS: No dislocation. Joint spaces maintained. Mild joint effusion. SOFT TISSUES: Diffuse soft tissue swelling. RAD/Ankle min 3 Views IMPRESSION: No acute fracture or dislocation identified in the left ankle. Electronically Signed: Calli Chahal MD at 12:42 EDT Reading Location ID and State: [facility] / [place] Tel , Service support , CC: [facility] INPATIENT CARE MANAGER RN-C Lala Ybarra Airways Control Specialist: Signed Normal [facility] Basic Metabolic Profile (BMP )on 07-28-2024 BUN/CRE 18.4 RATIO Normal -20 [facility] Comment on above: Order Comment: ADD T O GOLD TOP DRAWN BLOOD IN LAB. RECEIVED SPECIMEN Performed By: #### L 100.0100, L500.2500 ####[facility] [address] [place], [address] CA,Total 9.1 mg/dL Normal 8.5-10.1 [facility] Comment on above: Order Comment: ADD T O GOLD TOP DRAWN BLOOD IN LAB. RECEIVED SPECIMEN Performed By: #### L 100.0100, L500.2500 ####[facility] [address] [place], [address] Chloride [Moles/Vol] 106 mmol/L Normal 98-107 [facility] Comment on above: Order Comment: ADD T O GOLD TOP DRAWN BLOOD IN LAB. RECEIVED SPECIMEN Performed By: #### L 100.0100, L500.2500 ####[facility] [address] [place], [address] CO2 [Moles/Vol] 28.0 mmol/L Normal 21.0-32.0 [facility] Comment on above: Order Comment: ADD T O GOLD TOP DRAWN BLOOD IN LAB. RECEIVED SPECIMEN Performed By: #### L 100.0100, L500.2500 ####[facility] [address] [place], [address] Creatinine [Mass/Vol] 0.65 mg/dL Normal 0.55-1.02 [facility] Comment on above: Order Comment: ADD T O GOLD TOP DRAWN BLOOD IN LAB. RECEIVED SPECIMEN Result Comment: The validity of the calculated GFR GFRAA in patients over 70 years has not been determined. Clinical correlation is essential. Performed By: #### L 100.0100, L500.2500 ####[facility] [address] [place], [address] EST GFR - AA 138 mL/min Normal >60 [facility] Comment on above: Order Comment: ADD T O GOLD TOP DRAWN BLOOD IN LAB. RECEIVED SPECIMEN Result Comment: Afri can Macanese GFR Calc Performed By: #### L 100.0100, L500.2500 ####[facility] [address] [place], [address] GAP 6 Normal 5-15 [facility] Comment on above: Order Comment: ADD T O GOLD TOP DRAWN BLOOD IN LAB. RECEIVED SPECIMEN Performed By: #### L 100.0100, L500.2500 ####[facility] [address] [place], [address] GFR/1.73 sq M.predicted among non-blacks MDRD (S/P/Bld) [Vol rate/Area] 114 mL/min/{1.73_m2} Normal >60 [facility] Comment on above: Order Comment: ADD T O GOLD TOP DRAWN BLOOD IN LAB. RECEIVED SPECIMEN Result Comment: Non- GFR Calc Performed By: #### L 100.0100, L500.2500 ####[facility] [address] [place], [address] Glucose [Mass/Vol] 118 mg/dL High 74-106 [facility] Comment on above: Order Comment: ADD T O GOLD TOP DRAWN BLOOD IN LAB. RECEIVED SPECIMEN Result Comment: Fast ing Glucose result from 100 to 125 mg/dL suggests IMPAIRED HOMEOSTASIS per A.D.A. criteria. Performed By: #### L 100.0100, L500.2500 ####[facility] [address] [place], [address] Potassium [Moles/Vol] 3.7 mmol/L Normal 3.5-5.1 [facility] Comment on above: Order Comment: ADD T O GOLD TOP DRAWN BLOOD IN LAB. RECEIVED SPECIMEN Performed By: #### L 100.0100, L500.2500 ####[facility] [address] [place], [address] Sodium [Moles/Vol] 140 mmol/L Normal 136-145 [facility] Comment on above: Order Comment: ADD T O GOLD TOP DRAWN BLOOD IN LAB. RECEIVED SPECIMEN Performed By: #### L 100.0100, L500.2500 ####[facility] [address] [place], [address] Urea nitrogen [Mass/Vol] 12 mg/dL Normal 7-18 [facility] Comment on above: Order Comment: ADD T O GOLD TOP DRAWN BLOOD IN LAB. RECEIVED SPECIMEN Performed By: #### L 100.0100, L500.2500 ####[facility] [address] [place], [address] CBC W/Diff, Automatedon 10-0 3-2023 Absolute Lymph 2.18 X10 3/uL Normal 0.83-4.51 [facility] Comment on above: Performed By: #### L 100.0100, L500.2500 ####[facility] [address] [place], [address] Absolute Neut 5.4 X10 3/uL Normal 2.0-7.7 [facility] Comment on above: Performed By: #### L 100.0100, L500.2500 ####[facility] [address] [place], [address] Basophils/100 WBC (Bld) 0.4 % Normal 0-1 [facility] Comment on above: Performed By: #### L 100.0100, L500.2500 ####[facility] [address] [place], [address] Eosinophils/100 WBC (Bld) 0.9 % Normal 0-5 [facility] Comment on above: Performed By: #### L 100.0100, L500.2500 ####[facility] [address] [place], [address] Erythrocyte distribution width (RBC) [Ratio] 13.6 % Normal 11.6-14.6 [facility] Comment on above: Performed By: #### L 100.0100, L500.2500 ####[facility] [address] [place], [address] Hematocrit (Bld) [Volume fraction] 40.1 % Normal 37-47 [facility] Comment on above: Performed By: #### L 100.0100, L500.2500 ####[facility] [address] [place], [address] Hemoglobin (Bld) [Mass/Vol] 13.3 g/dL Normal 12.0-15.0 [facility] Comment on above: Performed By: #### L 100.0100, L500.2500 ####[facility] [address] [place], [address] IG% 0.400 Normal 0.0-0.9 [facility] Comment on above: Result Comment: IG% - Immature Granulocytes (promyelocytes, myelocytes and metamyelocytes) > 1% indicates that a LEFT SHIFT is Present. Performed By: #### L 100.0100, L500.2500 ####[facility] [address] [place], [address] Lymphocytes/100 WBC (Bld) 26.8 % Normal 19-41 [facility] Comment on above: Performed By: #### L 100.0100, L500.2500 ####[facility] [address] [place], [address] MCH (RBC) [Entitic mass] 28.5 pg Normal 27.0-32.0 [facility] Comment on above: Performed By: #### L 100.0100, L500.2500 ####[facility] [address] [place], [address] MCHC (RBC) [Mass/Vol] 33.2 g/dL Normal 32-36 [facility] Comment on above: Performed By: #### L 100.0100, L500.2500 ####[facility] [address] [place], [address] MCV (RBC) [Entitic vol] 85.9 fL Normal 81-99 [facility] Comment on above: Performed By: #### L 100.0100, L500.2500 ####[facility] [address] [place], [address] Monocytes/100 WBC (Bld) 5.3 % Normal 0-10 [facility] Comment on above: Performed By: #### L 100.0100, L500.2500 ####[facility] [address] [place], [address] Neutrophils/100 WBC (Bld) 66.2 % Normal 47-70 [facility] Comment on above: Performed By: #### L 100.0100, L500.2500 ####[facility] [address] [place], [address] Nucleated RBC (Bld) [#/Vol] 0 10*3/uL Normal 0-5 [facility] Comment on above: Performed By: #### L 100.0100, L500.2500 ####[facility] [address] [place], [address] Platelet mean volume (Bld) [Entitic vol] 10.4 fL Normal 6.2-12.0 [facility] Comment on above: Performed By: #### L 100.0100, L500.2500 ####[facility] [address] [place], [address] Platelets (Bld) [#/Vol] 296 10*3/uL Normal 150-450 [facility] Comment on above: Performed By: #### L 100.0100, L500.2500 ####[facility] [address] [place], [address] RBC (Bld) [#/Vol] 4.67 10*6/uL Normal 4.2-5.4 [facility] Comment on above: Performed By: #### L 100.0100, L500.2500 ####[facility] [address] [place], [address] RDW SD 42.2 fl Normal 35.1-43.9 [facility] Comment on above: Performed By: #### L 100.0100, L500.2500 ####[facility] [address] [place], [address] WBC (Bld) [#/Vol] 8.1 10*3/uL Normal 4.4-11.0 [facility] Comment on above: Performed By: #### L 100.0100, L500.2500 ####[facility] [address] [place], [address] CBC W/Diff, Automatedon 06-27 Absolute Lymph 4.34 X10 3/uL Normal 0.83-4.51 [facility] Comment on above: Performed By: #### L 100.0100, L506.0400, L3300.3500, L500.4100, L500.4050, L505.5000, L501.9985, L501.9520 #### [facility] [address] [place], [address] Absolute Neut 8.9 X10 3/uL High 2.0-7.7 [facility] Comment on above: Performed By: #### L 100.0100, L506.0400, L3300.3500, L500.4100, L500.4050, L505.5000, L501.9985, L501.9520 #### [facility] [address] [place], [address] Basophils/100 WBC (Bld) 0.5 % Normal 0-1 [facility] Comment on above: Performed By: #### L 100.0100, L506.0400, L3300.3500, L500.4100, L500.4050, L505.5000, L501.9985, L501.9520 #### [facility] [address] [place], [address] Eosinophils/100 WBC (Bld) 1.2 % Normal 0-5 [facility] Comment on above: Performed By: #### L 100.0100, L506.0400, L3300.3500, L500.4100, L500.4050, L505.5000, L501.9985, L501.9520 #### [facility] [address] [place], [address] Erythrocyte distribution width (RBC) [Ratio] 13.4 % Normal 11.6-14.6 [facility] Comment on above: Performed By: #### L 100.0100, L506.0400, L3300.3500, L500.4100, L500.4050, L505.5000, L501.9985, L501.9520 #### [facility] [address] [place], [address] Hematocrit (Bld) [Volume fraction] 45.0 % Normal 37-47 [facility] Comment on above: Performed By: #### L 100.0100, L506.0400, L3300.3500, L500.4100, L500.4050, L505.5000, L501.9985, L501.9520 #### [facility] [address] [place], [address] Hemoglobin (Bld) [Mass/Vol] 14.5 g/dL Normal 12.0-15.0 [facility] Comment on above: Performed By: #### L 100.0100, L506.0400, L3300.3500, L500.4100, L500.4050, L505.5000, L501.9985, L501.9520 #### [facility] [address] [place], [address] IG% 1.800 High 0.0-0.9 [facility] Comment on above: Result Comment: IG% - Immature Granulocytes (promyelocytes, myelocytes and metamyelocytes) > 1% indicates that a LEFT SHIFT is Present. Performed By: #### L 100.0100, L506.0400, L3300.3500, L500.4100, L500.4050, L505.5000, L501.9985, L501.9520 #### [facility] [address] [place], [address] Lymphocytes/100 WBC (Bld) 29.8 % Normal 19-41 [facility] Comment on above: Performed By: #### L 100.0100, L506.0400, L3300.3500, L500.4100, L500.4050, L505.5000, L501.9985, L501.9520 #### [facility] [address] [place], [address] MCH (RBC) [Entitic mass] 27.8 pg Normal 27.0-32.0 [facility] Comment on above: Performed By: #### L 100.0100, L506.0400, L3300.3500, L500.4100, L500.4050, L505.5000, L501.9985, L501.9520 #### [facility] [address] [place], [address] MCHC (RBC) [Mass/Vol] 32.2 g/dL Normal 32-36 [facility] Comment on above: Performed By: #### L 100.0100, L506.0400, L3300.3500, L500.4100, L500.4050, L505.5000, L501.9985, L501.9520 #### [facility] [address] [place], [address] MCV (RBC) [Entitic vol] 86.4 fL Normal 81-99 [facility] Comment on above: Performed By: #### L 100.0100, L506.0400, L3300.3500, L500.4100, L500.4050, L505.5000, L501.9985, L501.9520 #### [facility] [address] [place], [address] Monocytes/100 WBC (Bld) 5.6 % Normal 0-10 [facility] Comment on above: Performed By: #### L 100.0100, L506.0400, L3300.3500, L500.4100, L500.4050, L505.5000, L501.9985, L501.9520 #### [facility] [address] [place], [address] Neutrophils/100 WBC (Bld) 61.1 % Normal 47-70 [facility] Comment on above: Performed By: #### L 100.0100, L506.0400, L3300.3500, L500.4100, L500.4050, L505.5000, L501.9985, L501.9520 #### [facility] [address] [place], [address] Nucleated RBC (Bld) [#/Vol] 0 10*3/uL Normal 0-5 [facility] Comment on above: Performed By: #### L 100.0100, L506.0400, L3300.3500, L500.4100, L500.4050, L505.5000, L501.9985, L501.9520 #### [facility] [address] [place], [address] Platelet mean volume (Bld) [Entitic vol] 10.5 fL Normal 6.2-12.0 [facility] Comment on above: Performed By: #### L 100.0100, L506.0400, L3300.3500, L500.4100, L500.4050, L505.5000, L501.9985, L501.9520 #### [facility] [address] [place], [address] Platelets (Bld) [#/Vol] 399 10*3/uL Normal 150-450 [facility] Comment on above: Performed By: #### L 100.0100, L506.0400, L3300.3500, L500.4100, L500.4050, L505.5000, L501.9985, L501.9520 #### [facility] [address] [place], [address] RBC (Bld) [#/Vol] 5.21 10*6/uL Normal 4.2-5.4 [facility] Comment on above: Performed By: #### L 100.0100, L506.0400, L3300.3500, L500.4100, L500.4050, L505.5000, L501.9985, L501.9520 #### [facility] [address] [place], [address] RDW SD 41.4 fl Normal 35.1-43.9 [facility] Comment on above: Performed By: #### L 100.0100, L506.0400, L3300.3500, L500.4100, L500.4050, L505.5000, L501.9985, L501.9520 #### [facility] [address] [place], [address] WBC (Bld) [#/Vol] 14.6 10*3/uL High 4.4-11.0 [facility] Comment on above: Performed By: #### L 100.0100, L506.0400, L3300.3500, L500.4100, L500.4050, L505.5000, L501.9985, L501.9520 #### [facility] [address] [place], [address] Comprehensive Metabolic Prof [facility] 07-19-2024 Albumin [Mass/Vol] 3.4 g/dL Normal 3.2-5.0 [facility] Comment on above: Performed By: #### L 100.0100, L506.0400, L3300.3500, L500.4100, L500.4050, L505.5000, L501.9985, L501.9520 #### [facility] [address] [place], [place], [address] Albumin/Globulin [Mass ratio] 0.8 {ratio} Low 0.9-2.4 [facility] Comment on above: Performed By: #### L 100.0100, L506.0400, L3300.3500, L500.4100, L500.4050, L505.5000, L501.9985, L501.9520 #### [facility] [address] [place], [place], [address] ALK P 73 U/L Normal 45-117 [facility] Comment on above: Performed By: #### L 100.0100, L506.0400, L3300.3500, L500.4100, L500.4050, L505.5000, L501.9985, L501.9520 #### [facility] [address] [place], [place], [id number] ALT [Catalytic activity/Vol] 39 U/L Normal 13-56 [facility] Comment on above: Performed By: #### L 100.0100, L506.0400, L3300.3500, L500.4100, L500.4050, L505.5000, L501.9985, L501.9520 #### [facility] [address] [place], [address] AST [Catalytic activity/Vol] 17 U/L Normal 15-37 [facility] Comment on above: Performed By: #### L 100.0100, L506.0400, L3300.3500, L500.4100, L500.4050, L505.5000, L501.9985, L501.9520 #### [facility] [address] [place], [address] Bilirubin [Mass/Vol] 0.40 mg/dL Normal 0.20-1.00 [facility] Comment on above: Result Comment: For patients on eltrombopag therapy, use of Dimension [place] TBIL is not recommended. Performed By: #### L 100.0100, L506.0400, L3300.3500, L500.4100, L500.4050, L505.5000, L501.9985, L501.9520 #### [facility] [address] [place], [address] BUN/CRE 26.2 RATIO High 10-20 [facility] Comment on above: Performed By: #### L 100.0100, L506.0400, L3300.3500, L500.4100, L500.4050, L505.5000, L501.9985, L501.9520 #### [facility] [address] [place], [address] CA,Total 9.1 mg/dL Normal 8.5-10.1 [facility] Comment on above: Performed By: #### L 100.0100, L506.0400, L3300.3500, L500.4100, L500.4050, L505.5000, L501.9985, L501.9520 #### [facility] [address] [place], [address] Chloride [Moles/Vol] 99 mmol/L Normal 98-107 [facility] Comment on above: Performed By: #### L 100.0100, L506.0400, L3300.3500, L500.4100, L500.4050, L505.5000, L501.9985, L501.9520 #### [facility] [address] [place], [address] CO2 [Moles/Vol] 27.0 mmol/L Normal 21.0-32.0 [facility] Comment on above: Performed By: #### L 100.0100, L506.0400, L3300.3500, L500.4100, L500.4050, L505.5000, L501.9985, L501.9520 #### [facility] [address] [place], [address] Creatinine [Mass/Vol] 0.61 mg/dL Normal 0.55-1.02 [facility] Comment on above: Result Comment: The validity of the calculated GFR GFRAA in patients over 70 years has not been determined. Clinical correlation is essential. Performed By: #### L 100.0100, L506.0400, L3300.3500, L500.4100, L500.4050, L505.5000, L501.9985, L501.9520 #### [facility] [address] [place], [address] EST GFR - AA 150 mL/min Normal >60 [facility] Comment on above: Result Comment: Afri can Macanese GFR Calc Performed By: #### L 100.0100, L506.0400, L3300.3500, L500.4100, L500.4050, L505.5000, L501.9985, L501.9520 #### [facility] [address] [place], [place], [id number] (116) GAP 7 Normal 5-15 [facility] Comment on above: Performed By: #### L 100.0100, L506.0400, L3300.3500, L500.4100, L500.4050, L505.5000, L501.9985, L501.9520 #### [facility] [address] [place], [address] GFR/1.73 sq M.predicted among non-blacks MDRD (S/P/Bld) [Vol rate/Area] 124 mL/min/{1.73_m2} Normal >60 [facility] Comment on above: Result Comment: Non- GFR Calc Performed By: #### L 100.0100, L506.0400, L3300.3500, L500.4100, L500.4050, L505.5000, L501.9985, L501.9520 #### [facility] [address] [place], [place], [id number] (324) Globulin (S) [Mass/Vol] 4.1 g/dL Normal 2.2-4.2 [facility] Comment on above: Performed By: #### L 100.0100, L506.0400, L3300.3500, L500.4100, L500.4050, L505.5000, L501.9985, L501.9520 #### [facility] [address] [place], [address] Glucose [Mass/Vol] 103 mg/dL Normal 74-106 [facility] Comment on above: Result Comment: Fast ing Glucose result from 100 to 125 mg/dL suggests IMPAIRED HOMEOSTASIS per A.D.A. criteria. Performed By: #### L 100.0100, L506.0400, L3300.3500, L500.4100, L500.4050, L505.5000, L501.9985, L501.9520 #### [facility] [address] [place], [address] Potassium [Moles/Vol] 4.2 mmol/L Normal 3.5-5.1 [facility] Comment on above: Performed By: #### L 100.0100, L506.0400, L3300.3500, L500.4100, L500.4050, L505.5000, L501.9985, L501.9520 #### [facility]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 among non-blacks MDRD (S/P/Bld) [Vol rate/Area] 118 mL/min/{1.73_m2} Normal >60 [facility] Comment on above: Order Comment: Order Date: 07/04/24Order Info: [id number] - CMPOrder Info: [id number] - LIPID Result Comment: Non- GFR Calc Performed By: #### L 100.0100, L506.0400, L3300.3500, L500.4100, L500.4050, L505.5000, L501.9985, L501.9520 #### [facility] [address] [place], [address] Globulin (S) [Mass/Vol] 3.7 g/dL Normal 2.2-4.2 [facility] Comment on above: Order Comment: Order Date: 07/04/24Order Info: [id number] - CMPOrder Info: [id number] - LIPID Performed By: #### L 100.0100, L506.0400, L3300.3500, L500.4100, L500.4050, L505.5000, L501.9985, L501.9520 #### [facility] [address] [place], [address] Glucose [Mass/Vol] 97 mg/dL Normal 74-106 [facility] Comment on above: Order Comment: Order Date: 07/04/24Order Info: [id number] - CMPOrder Info: [id number] - LIPID Performed By: #### L 100.0100, L506.0400, L3300.3500, L500.4100, L500.4050, L505.5000, L501.9985, L501.9520 #### [facility] [address] [place], [address] Potassium [Moles/Vol] 3.9 mmol/L Normal 3.5-5.1 [facility] Comment on above: Order Comment: Order Date: 07/04/24Order Info: [id number]- - CMPOrder Info: [id number] - LIPID Performed By: #### L 100.0100, L506.0400, L3300.3500, L500.4100, L500.4050, L505.5000, L501.9985, L501.9520 #### [facility] [address] [place], [address] Sodium [Moles/Vol] 137 mmol/L Normal 136-145 [facility] Comment on above: Order Comment: Order Date: 07/04/24Order Info: [id number] - CMPOrder Info: [id number] - LIPID Performed By: #### L 100.0100, L506.0400, L3300.3500, L500.4100, L500.4050, L505.5000, L501.9985, L501.9520 #### [facility] [address] [place], [address] T PROT 6.9 g/dL Normal 6.4-8.2 [facility] Comment on above: Order Comment: Order Date: 07/04/24Order Info: [id number] - CMPOrder Info: [id number] - LIPID Performed By: #### L 100.0100, L506.0400, L3300.3500, L500.4100, L500.4050, L505.5000, L501.9985, L501.9520 #### [facility] [address] [place], [address] Urea nitrogen [Mass/Vol] 13 mg/dL Normal 7-18 [facility] Comment on above: Order Comment: Order Date: 07/04/24Order Info: [id number] - CMPOrder Info: [id number] - LIPID Performed By: #### L 100.0100, L506.0400, L3300.3500, L500.4100, L500.4050, L505.5000, L501.9985, L501.9520 #### [facility] [address] [place], [address] Employee [employer] 4 Albumin [Mass/Vol] 3.1 g/dL Low 3.2-5.0 [facility] Comment on above: Performed By: #### L 100.0100, L506.0400, L3300.3500, L500.4100, L500.4050, L505.5000, L501.9985, L501.9520 #### [facility] [address] [place], [address] Albumin/Globulin [Mass ratio] 0.8 {ratio} Low 0.9-2.4 [facility] Comment on above: Performed By: #### L 100.0100, L506.0400, L3300.3500, L500.4100, L500.4050, L505.5000, L501.9985, L501.9520 #### [facility] [address] [place], [address] ALK P 75 U/L Normal 45-117 [facility] Comment on above: Performed By: #### L 100.0100, L506.0400, L3300.3500, L500.4100, L500.4050, L505.5000, L501.9985, L501.9520 #### [facility] [address] [place], [address] ALT [Catalytic activity/Vol] 25 U/L Normal 13-56 [facility] Comment on above: Performed By: #### L 100.0100, L506.0400, L3300.3500, L500.4100, L500.4050, L505.5000, L501.9985, L501.9520 #### [facility] [address] [place], [address] AST [Catalytic activity/Vol] 13 U/L Low 15-37 [facility] Comment on above: Performed By: #### L 100.0100, L506.0400, L3300.3500, L500.4100, L500.4050, L505.5000, L501.9985, L501.9520 #### [facility] [address] [place], [address] Bilirubin [Mass/Vol] 0.40 mg/dL Normal 0.20-1.00 [facility] Comment on above: Result Comment: For patients on eltrombopag therapy, use of Dimension [place] TBIL is not recommended. Performed By: #### L 100.0100, L506.0400, L3300.3500, L500.4100, L500.4050, L505.5000, L501.9985, L501.9520 #### [facility] [address] [place], [address] Bilirubin.direct [Mass/Vol] 0.10 mg/dL Normal 0.00-0.30 [facility] Comment on above: Performed By: #### L 100.0100, L506.0400, L3300.3500, L500.4100, L500.4050, L505.5000, L501.9985, L501.9520 #### [facility] [address] [place], [address] BUN/CRE 19.6 RATIO Normal 10-20 [facility] Comment on above: Performed By: #### L 100.0100, L506.0400, L3300.3500, L500.4100, L500.4050, L505.5000, L501.9985, L501.9520 #### [facility] [address] [place], [place], [id number] CA,Total 8.7 mg/dL Normal 8.5-10.1 [facility] Comment on above: Performed By: #### L 100.0100, L506.0400, L3300.3500, L500.4100, L500.4050, L505.5000, L501.9985, L501.9520 #### [facility] [address] [place], [address] Chloride [Moles/Vol] 105 mmol/L Normal 98-107 [facility] Comment on above: Performed By: #### L 100.0100, L506.0400, L3300.3500, L500.4100, L500.4050, L505.5000, L501.9985, L501.9520 #### [facility] [address] [place], [address] CHOL:HDL 2.40 Normal [facility] Comment on above: Performed By: #### L 100.0100, L506.0400, L3300.3500, L500.4100, L500.4050, L505.5000, L501.9985, L501.9520 #### [facility] [address] [place], [address] Cholesterol [Mass/Vol] 163 mg/dL Normal 200 [facility] Comment on above: Result Comment: <200 mg/dL Desirable 200-240 mg/dL Borderline >240 mg/dL High Risk Performed By: #### L 100.0100, L506.0400, L3300.3500, L500.4100, L500.4050, L505.5000, L501.9985, L501.9520 #### [facility] [address] [place], [address] Cholesterol in HDL [Mass/Vol] 67 mg/dL Normal [facility] Comment on above: Result Comment: The drugs N-Acetylcysteine and Metamizole may falsely depress this assay. Reference Range HDL <40 mg/dL Low HDL Cholesterol HDL >or= 60 mg/dL High HDL Cholesterol Performed By: #### L 100.0100, L506.0400, L3300.3500, L500.4100, L500.4050, L505.5000, L501.9985, L501.9520 #### [facility] [address] [place], [address] Cholesterol in LDL [Mass/Vol] 80 mg/dL Normal 0-130 [facility] Comment on above: Performed By: #### L 100.0100, L506.0400, L3300.3500, L500.4100, L500.4050, L505.5000, L501.9985, L501.9520 #### [facility] [address] [place], [address] Cholesterol in VLDL [Mass/Vol] 16 mg/dL Normal 5-40 [facility] Comment on above: Performed By: #### L 100.0100, L506.0400, L3300.3500, L500.4100, L500.4050, L505.5000, L501.9985, L501.9520 #### [facility] [address] [place], [address] CO2 [Moles/Vol] 27.0 mmol/L Normal 21.0-32.0 [facility] Comment on above: Performed By: #### L 100.0100, L506.0400, L3300.3500, L500.4100, L500.4050, L505.5000, L501.9985, L501.9520 #### [facility] [address] [place], [address] Creatinine [Mass/Vol] 0.66 mg/dL Normal 0.55-1.02 [facility] Comment on above: Result Comment: The validity of the calculated GFR GFRAA in patients over 70 years has not been determined. Clinical correlation is essential. Performed By: #### L 100.0100, L506.0400, L3300.3500, L500.4100, L500.4050, L505.5000, L501.9985, L501.9520 #### [facility] [address] [place], [address] EST GFR - AA 136 mL/min Normal >60 [facility] Comment on above: Result Comment: Afri can Macanese GFR Calc Performed By: #### L 100.0100, L506.0400, L3300.3500, L500.4100, L500.4050, L505.5000, L501.9985, L501.9520 #### [facility] [address] [place], [address] GAP 5 Normal 5-15 [facility] Comment on above: Performed By: #### L 100.0100, L506.0400, L3300.3500, L500.4100, L500.4050, L505.5000, L501.9985, L501.9520 #### [facility] [address] [place], [address] GFR/1.73 sq M.predicted among non-blacks MDRD (S/P/Bld) [Vol rate/Area] 113 mL/min/{1.73_m2} Normal >60 [facility] Comment on above: Result Comment: Non- GFR Calc Performed By: #### L 100.0100, L506.0400, L3300.3500, L500.4100, L500.4050, L505.5000, L501.9985, L501.9520 #### [facility] [address] [place], [address] Globulin (S) [Mass/Vol] 3.9 g/dL Normal 2.2-4.2 [facility] Comment on above: Performed By: #### L 100.0100, L506.0400, L3300.3500, L500.4100, L500.4050, L505.5000, L501.9985, L501.9520 #### [facility] [address] [place], [address] Glucose [Mass/Vol] 94 mg/dL Normal 74-106 [facility] Comment on above: Performed By: #### L 100.0100, L506.0400, L3300.3500, L500.4100, L500.4050, L505.5000, L501.9985, L501.9520 #### [facility] [address] [place], [address] LDH 195 U/L Normal 84-246 [facility] Comment on above: Performed By: #### L 100.0100, L506.0400, L3300.3500, L500.4100, L500.4050, L505.5000, L501.9985, L501.9520 #### [facility] [address] [place], [address] Phosphate [Mass/Vol] 3.5 mg/dL Normal 2.5-4.9 [facility] Comment on above: Performed By: #### L 100.0100, L506.0400, L3300.3500, L500.4100, L500.4050, L505.5000, L501.9985, L501.9520 #### [facility] [address] [place], [address] Potassium [Moles/Vol] 3.8 mmol/L Normal 3.5-5.1 [facility] Comment on above: Performed By: #### L 100.0100, L506.0400, L3300.3500, L500.4100, L500.4050, L505.5000, L501.9985, L501.9520 #### [facility] [address] [place], [address] Sodium [Moles/Vol] 137 mmol/L Normal 136-145 [facility] Comment on above: Performed By: #### L 100.0100, L506.0400, L3300.3500, L500.4100, L500.4050, L505.5000, L501.9985, L501.9520 #### [facility] [address] [place], [address] T PROT 7.0 g/dL Normal 6.4-8.2 [facility] Comment on above: Performed By: #### L 100.0100, L506.0400, L3300.3500, L500.4100, L500.4050, L505.5000, L501.9985, L501.9520 #### [facility] [address] [place], [address] Triglyceride [Mass/Vol] 82 mg/dL Normal [facility] Comment on above: Result Comment: The drugs N-Acetylcysteine and Metamizole may falsely depress this assay. Serum Triglycerides Reference Interval Normal <150 mg/dL Borderline high 150 - 199 mg/dL High 200 - 499 mg/dL Very High > or = 500 mg/dL Performed By: #### L 100.0100, L506.0400, L3300.3500, L500.4100, L500.4050, L505.5000, L501.9985, L501.9520 #### [facility] [address] [place], [address] Urea nitrogen [Mass/Vol] 13 mg/dL Normal 7-18 [facility] Comment on above: Performed By: #### L 100.0100, L506.0400, L3300.3500, L500.4100, L500.4050, L505.5000, L501.9985, L501.9520 #### [facility] [address] [place], [address] URIC 4.9 mg/dL Normal 2.6-6.0 [facility] Comment on above: Result Comment: The drugs N-Acetylcysteine and Metamizole may falsely depress this assay. Performed By: #### L 100.0100, L506.0400, L3300.3500, L500.4100, L500.4050, L505.5000, L501.9985, L501.9520 #### [facility] [address] [place], [address] Hemoglobin A1con 07-05-2024 HbA1c (Bld) [Mass fraction] 5.1 % Normal 3.8-5.6 [facility] Comment on above: Order Comment: UNK Result Comment: Norm al < 5.7 % Prediabetic 5.7 - 6.4 % Diabetic >or= 6.5 % Please note range changes. Performed By: #### L 100.0100, L506.0400, L3300.3500, L500.4100, L500.4050, L505.5000, L501.9985, L501.9520 #### [facility] [address] [place], [address] Lipid Profileon 07-05-2024 Cholesterol [Mass/Vol] 162 mg/dL Normal 200 [facility] Comment on above: Order Comment: Order Date: 07/04/24Order Info: [id number] - CMPOrder Info: [id number] - LIPID Result Comment: <200 mg/dL Desirable 200-240 mg/dL Borderline >240 mg/dL High Risk Performed By: #### L 100.0100, L506.0400, L3300.3500, L500.4100, L500.4050, L505.5000, L501.9985, L501.9520 #### [facility] [address] [place], [address] Cholesterol in HDL [Mass/Vol] 67 mg/dL Normal [facility] Comment on above: Order Comment: Order Date: 07/04/24Order Info: [id number] - CMPOrder Info: [id number] - LIPID Result Comment: The drugs N-Acetylcysteine and Metamizole may falsely depress this assay. Reference Range HDL <40 mg/dL Low HDL Cholesterol HDL >or= 60 mg/dL High HDL Cholesterol Performed By: #### L 100.0100, L506.0400, L3300.3500, L500.4100, L500.4050, L505.5000, L501.9985, L501.9520 #### [facility] [address] [place], [address] Cholesterol in LDL [Mass/Vol] 79 mg/dL Normal 0-130 [facility] Comment on above: Order Comment: Order Date: 07/04/24Order Info: [id number] - CMPOrder Info: [id number] - LIPID Performed By: #### L 100.0100, L506.0400, L3300.3500, L500.4100, L500.4050, L505.5000, L501.9985, L501.9520 #### [facility] [address] [place], [place], [address] Cholesterol in VLDL [Mass/Vol] 16 mg/dL Normal 5-40 [facility] Comment on above: Order Comment: Order Date: 07/04/24Order Info: [id number] - CMPOrder Info: [id number] - LIPID Performed By: #### L 100.0100, L506.0400, L3300.3500, L500.4100, L500.4050, L505.5000, L501.9985, L501.9520 #### [facility] [address] [place], [place], [address] Triglyceride [Mass/Vol] 82 mg/dL Normal [facility] Comment on above: Order Comment: Order Date: 07/04/24Order Info: [id number] - CMPOrder Info: [id number] - LIPID Result Comment: The drugs N-Acetylcysteine and Metamizole may falsely depress this assay. Serum Triglycerides Reference Interval Normal <150 mg/dL Borderline high 150 - 199 mg/dL High 200 - 499 mg/dL Very High > or = 500 mg/dL Performed By: #### L 100.0100, L506.0400, L3300.3500, L500.4100, L500.4050, L505.5000, L501.9985, L501.9520 #### [facility] [address] [place], [place], [id number] Urinalysis, Employeeon 07-05 BILIRUBIN URINE Negative Normal Negative [facility] Comment on above: Order Comment: CLEAN CATCH Performed By: #### L 100.0100, L506.0400, L3300.3500, L500.4100, L500.4050, L505.5000, L501.9985, L501.9520 #### [facility] [address] [place], [place], [id number] Clarity (U) Sl. Cloudy Normal Clear [facility] Comment on above: Order Comment: CLEAN CATCH Performed By: #### L 100.0100, L506.0400, L3300.3500, L500.4100, L500.4050, L505.5000, L501.9985, L501.9520 #### [facility] [address] [place], [place], [id number] Color (U) Yellow Normal Yellow [facility] Comment on above: Order Comment: CLEAN CATCH Performed By: #### L 100.0100, L506.0400, L3300.3500, L500.4100, L500.4050, L505.5000, L501.9985, L501.9520 #### [facility] [address] [place], [address] GLUCOSE, UR Normal Normal Normal [facility] Comment on above: Order Comment: CLEAN CATCH Performed By: #### L 100.0100, L506.0400, L3300.3500, L500.4100, L500.4050, L505.5000, L501.9985, L501.9520 #### [facility] [address] [place], [address] KETONE UR Negative Normal Negative [facility] Comment on above: Order Comment: CLEAN CATCH Performed By: #### L 100.0100, L506.0400, L3300.3500, L500.4100, L500.4050, L505.5000, L501.9985, L501.9520 #### [facility] [address] [place], [address] LEUK ESTERASE 100 /ul Abnormal Negative [facility] Comment on above: Order Comment: CLEAN CATCH Performed By: #### L 100.0100, L506.0400, L3300.3500, L500.4100, L500.4050, L505.5000, L501.9985, L501.9520 #### [facility] [address] [place], [address] Nitrite Ql (U) Negative Normal Negative [facility] Comment on above: Order Comment: CLEAN CATCH Performed By: #### L 100.0100, L506.0400, L3300.3500, L500.4100, L500.4050, L505.5000, L501.9985, L501.9520 #### [facility] [address] [place], [address] OCCULT BLOOD-UR 50 /ul Abnormal Negative [facility] Comment on above: Order Comment: CLEAN CATCH Performed By: #### L 100.0100, L506.0400, L3300.3500, L500.4100, L500.4050, L505.5000, L501.9985, L501.9520 #### [facility] [address] [place], [place], [address] pH UR 7.0 Normal 5.0 - 8.0 [facility] Comment on above: Order Comment: CLEAN CATCH Performed By: #### L 100.0100, L506.0400, L3300.3500, L500.4100, L500.4050, L505.5000, L501.9985, L501.9520 #### [facility] [address] [place], [address] PROT DIPSTX Negative Normal Negative [facility] Comment on above: Order Comment: CLEAN CATCH Performed By: #### L 100.0100, L506.0400, L3300.3500, L500.4100, L500.4050, L505.5000, L501.9985, L501.9520 #### [facility] [address] [place], [address] SP.GR. DIPSTX 1.010 Normal 1.002-1.03 0 [facility] Comment on above: Order Comment: CLEAN CATCH Performed By: #### L 100.0100, L506.0400, L3300.3500, L500.4100, L500.4050, L505.5000, L501.9985, L501.9520 #### [facility] [address] [place], [place], [id number] UROBILI Normal Normal Normal [facility] Comment on above: Order Comment: CLEAN CATCH Performed By: #### L 100.0100, L506.0400, L3300.3500, L500.4100, L500.4050, L505.5000, L501.9985, L501.9520 #### [facility] [address] [place], [place], [id number] (921) CBC W/Diff, Automatedon 09-0 -2023 Absolute Lymph 1.61 X10 3/uL Normal 0.83-4.51 [facility] Comment on above: Performed By: #### L 100.0100, L506.0400, L3300.3500, L500.4100, L500.4050, L505.5000, L501.9985, L501.9520 #### [facility] [address] [place], [place], [id number] Absolute Neut 4.2 X10 3/uL Normal 2.0-7.7 [facility] Comment on above: Performed By: #### L 100.0100, L506.0400, L3300.3500, L500.4100, L500.4050, L505.5000, L501.9985, L501.9520 #### [facility] [address] [place], [address] Basophils/100 WBC (Bld) 0.6 % Normal 0-1 [facility] Comment on above: Performed By: #### L 100.0100, L506.0400, L3300.3500, L500.4100, L500.4050, L505.5000, L501.9985, L501.9520 #### [facility] [address] [place], [address] (472 Eosinophils/100 WBC (Bld) 1.4 % Normal 0-5 [facility] Comment on above: Performed By: #### L 100.0100, L506.0400, L3300.3500, L500.4100, L500.4050, L505.5000, L501.9985, L501.9520 #### [facility] [address] [place], [address] (028) Erythrocyte distribution width (RBC) [Ratio] 13.5 % Normal 11.6-14.6 [facility] Comment on above: Performed By: #### L 100.0100, L506.0400, L3300.3500, L500.4100, L500.4050, L505.5000, L501.9985, L501.9520 #### [facility] [address] [place], [address] (380) Hematocrit (Bld) [Volume fraction] 40.1 % Normal 37-47 [facility] Comment on above: Performed By: #### L 100.0100, L506.0400, L3300.3500, L500.4100, L500.4050, L505.5000, L501.9985, L501.9520 #### [facility] [address] [place], [address] (818) Hemoglobin (Bld) [Mass/Vol] 13.1 g/dL Normal 12.0-15.0 [facility] Comment on above: Performed By: #### L 100.0100, L506.0400, L3300.3500, L500.4100, L500.4050, L505.5000, L501.9985, L501.9520 #### [facility] [address] [place], [address] (273 IG% 0.600 Normal 0.0-0.9 [facility] Comment on above: Result Comment: IG% - Immature Granulocytes (promyelocytes, myelocytes and metamyelocytes) > 1% indicates that a LEFT SHIFT is Present. Performed By: #### L 100.0100, L506.0400, L3300.3500, L500.4100, L500.4050, L505.5000, L501.9985, L501.9520 #### [facility] [address] [place], [address] Lymphocytes/100 WBC (Bld) 25.4 % Normal 19-41 [facility] Comment on above: Performed By: #### L 100.0100, L506.0400, L3300.3500, L500.4100, L500.4050, L505.5000, L501.9985, L501.9520 #### [facility] [address] [place], [address] MCH (RBC) [Entitic mass] 27.9 pg Normal 27.0-32.0 [facility] Comment on above: Performed By: #### L 100.0100, L506.0400, L3300.3500, L500.4100, L500.4050, L505.5000, L501.9985, L501.9520 #### [facility] [address] [place], [address] MCHC (RBC) [Mass/Vol] 32.7 g/dL Normal 32-36 [facility] Comment on above: Performed By: #### L 100.0100, L506.0400, L3300.3500, L500.4100, L500.4050, L505.5000, L501.9985, L501.9520 #### [facility] [address] [place], [address] MCV (RBC) [Entitic vol] 85.3 fL Normal 81-99 [facility] Comment on above: Performed By: #### L 100.0100, L506.0400, L3300.3500, L500.4100, L500.4050, L505.5000, L501.9985, L501.9520 #### [facility] [address] [place], [address] Monocytes/100 WBC (Bld) 6.0 % Normal 0-10 [facility] Comment on above: Performed By: #### L 100.0100, L506.0400, L3300.3500, L500.4100, L500.4050, L505.5000, L501.9985, L501.9520 #### [facility] [address] [place], [address] Neutrophils/100 WBC (Bld) 66.0 % Normal 47-70 [facility] Comment on above: Performed By: #### L 100.0100, L506.0400, L3300.3500, L500.4100, L500.4050, L505.5000, L501.9985, L501.9520 #### [facility] [address] [place], [address] Nucleated RBC (Bld) [#/Vol] 0 10*3/uL Normal 0-5 [facility] Comment on above: Performed By: #### L 100.0100, L506.0400, L3300.3500, L500.4100, L500.4050, L505.5000, L501.9985, L501.9520 #### [facility] [address] [place], [address] Platelet mean volume (Bld) [Entitic vol] 10.5 fL Normal 6.2-12.0 [facility] Comment on above: Performed By: #### L 100.0100, L506.0400, L3300.3500, L500.4100, L500.4050, L505.5000, L501.9985, L501.9520 #### [facility] [address] [place], [address] Platelets (Bld) [#/Vol] 296 10*3/uL Normal 150-450 [facility] Comment on above: Performed By: #### L 100.0100, L506.0400, L3300.3500, L500.4100, L500.4050, L505.5000, L501.9985, L501.9520 #### [facility] [address] [place], [address] RBC (Bld) [#/Vol] 4.70 10*6/uL Normal 4.2-5.4 [facility] Comment on above: Performed By: #### L 100.0100, L506.0400, L3300.3500, L500.4100, L500.4050, L505.5000, L501.9985, L501.9520 #### [facility] [address] [place], [place], [id number] (583 RDW SD 42.2 fl Normal 35.1-43.9 [facility] Comment on above: Performed By: #### L 100.0100, L506.0400, L3300.3500, L500.4100, L500.4050, L505.5000, L501.9985, L501.9520 #### [facility] [address] [place], [place], [phone] (061 WBC (Bld) [#/Vol] 6.3 10*3/uL Normal 4.4-11.0 [facility] Comment on above: Performed By: #### L 100.0100, L506.0400, L3300.3500, L500.4100, L500.4050, L505.5000, L501.9985, L501.9520 #### [facility] [address] [place], [place], [phone] Discharge Instructionon Discharge Instruction [facility] Medical Records Department [address] [place] [address] Instructions for Home/Discharge Instructions 06/28/24 1309 MR#: [id number] Acct: [id number] Name: KATIE PULLIAM Rep #: [id number] : 1995 29 From: Cintia Mcgee MD PCP: Dr. Francisco Stock MD Status:REG [facility] Discharge Instructions Diet Discharge Diet: No restrictions Activity Discharge Activity: Return to Normal Activity and May Not Drive (while taking narcotic pain medications.) May resume sexual activity in: 4 weeks (Nothing in the vagina for 4 weeks.) Dressing / Incision Call your doctor if you observe: Fever of 101 or Higher and Using more than 1 pad per hour Follow Up Care Please Follow Up With: Cintia Mcgee MD When: Call [phone] for follow-up appointment. Test Results: Test results from this visit will be discussed in further detail at your follow-up appointment, if applicable. Discharge Plan Admission Attending Provider: Cintia Mcgee Primary Care Provider: Francisco Stock Instructions Print Language: Welsh Discharge Orders/Prescriptions Prescriptions: No Action albuterol sulfate 90 mcg/actuation HFA aerosol inhaler 2 puff inhalation Q4H PRN (Reason: shortness of breath or wheezing) multivitamin [Daily Multi-Vitamin] Tablet 1 tab PO DAILY Referrals / Follow Up: Francisco Stock MD [Primary Care Provider] - Disposition Disposition (needs filled in before D/C Order can be placed): Home, Self Care 06/28/24 1411 Cintia Mcgee MD CC: Dr. Francisco Stock MD Signed [facility] MR/POSTOP.[facility] 06-28-2024 MR/POSTOP.[facility] Medical Records Department [address] [place] [address] Anesthesia Postop Eval I 06/28/24 1422 MR#: [id number] Acct: [id number] Name: KATIE PULLIAM Rep #: [id number] : 1995 From: Arianna Samuel PCP: Dr. Francisco Stock MD Status:REG [facility] Y Race: C Location: [place] [address] Anesthesia: Postop Eval I Current Vital Signs Temperature: 97.4 F Pulse Rate: 98 Blood Pressure: 122/104 Respiratory Rate: 20 Pulse Ox: 99 Assessment Airway patent: Yes Spontaneous unlabored respirations: Yes nausea: No Vomiting: No Anesthesia Complication: No Fluid Hydration Crystalloid volume administer (ml): 1,000 Total IV fluid infused: 1,000 Progress Note Anesthesia document: Postop Eval 1 completed: Yes 06/28/24 1422 Date Arianna London Signature: Date CC: Signed Normal [facility] MR/[id number] 06-28-2024 MR/POSTOPAN2 [facility] Medical Records Department [address] [place] [address] Anesthesia Postop Eval II 06/28/24 1436 MR#: [id number] Acct: [id number] Name: KATIE PULLIAM Rep #: [id number] : 1995 29 From: Hamlet Mueller MD PCP: Dr. 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.CSIR Anesthesia Postop Eval I: Fluid Summary Crystalloid volume administer 1,000 06/28/24 14:22 STEAM PRESSURE CHAMBER OPERATOR.CSIR (ml) Colloids volume administered ( ml) Blood Product volume administered (ml) Total IV fluid infused 1,000 06/28/24 14:22 STEAM PRESSURE CHAMBER OPERATOR.CSIR Anesthesia Postop Eval I: Summary Notes Anesthesia Complication No 06/28/24 14:22 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 Francisco Stock MD Status:[facility] Location: [place] [address] 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: (2) Menorrhagia with irregular cycle: (3) Pelvic pain: Report of Operation Date of Procedure: 06/28/24 Pre-Operative Diagnosis: see problem list Post-Operative Diagnosis: same Surgery/Procedure Performed:: LEEP procedure Description of Surgical Findings:: grossly nl cervix Surgeon: Cintia Mcgee digital content manager: None Type of Anesthesia: General and Local Special Medications: monsels paste Specimen's removed: cervix ecc Drains: none Estimated Blood Loss (mL): 025 Fluids Replaced: crystalloid Description of Procedure: Paracervical block was placed with 1% lidocaine and using a loop electrode the outer part of the cervix was removed including the squamocolumnar junction. Endocervical curettings were taken and th e base of the cervix was cauterized around the borders and the base to obtain excellent hemostasis. Monsel's paste was placed and patient was awoken and taken recovery in stable condition. Grafts/Implants Used: none Procedure Start Time: 02:00 Procedure Stop Time: 02:09 Complications none Admit VTE Documentation VTE Present on Admission: No VTE Mechan Device Prophylaxis: SCD's Procedures Urinary/Genital 52xxx-59xxx: 63047 LEEP 06/28/24 1411 Cosigner Signature (if applicable): CC: Dr. Francisco Stock MD; Dr. Cintia Mcgee MD Signed Normal [facility] ,Urineon 06-28-2024 Beta HCG ( test) Ql (U) Negative Normal [facility] Comment on above: Result Comment: Very dilute urine specimens, as indicated by a low specific gravity, may not contain new accounts representative levels of hCG. If is still suspected, a first morning urine specimen should be collected 48 hours later and tested. Performed By: #### L 100.0100, L506.0400, L3300.3500, L500.4100, L500.4050, L505.5000, L501.9985, L501.9520 #### [facility] [address] [place], [address] Surgery Specimen Level Hoda 06-28-2024 Surgery Specimen Level IV Patient Age/Sex Location Account Attending Physician KATIE PULLIAM 29/ [facility] [id number] Dr. Cintia Mcgee MD Specimen: [id number] Received: 06/29/24 Status: HERBER Nuñez Num: [id number] Spec Type: Leep Cone Subm Dr: Dr. Cintia Mcgee MD HEADER OPERATION: Leep cone PRE-OP DIAGNOSIS: FRANCISCO II with severe dysplasia TISSUE SUBMITTED: A- Cervix, B- Endocervical curettings MICROSCOPIC DIAGNOSIS A. Cervix, LEEP colonization: Reactive and reparative epithelial changes and mild chronic inflammation. Focal HPV change suspected. See comment. B. Endocervix, curettings: Fragments of benign lower uterine endometrium and endocervix. No evidence of dysplasia. AM/mr 06/30/2024 COMMENT A. Immunohistochemistry ([id number]) for surrogate HPV marker (p16) supports the above diagnosis. Reference is made to the patient's previous cervical biopsy ([id number]) in which moderate squamous dysplasia was identified. Case has been reviewed in consultation with Dr. iVlleda who concurs with the above diagnosis. IDC:[email or web address] MICROSCOPIC DESCRIPTION Slides are reviewed. GROSS DESCRIPTION A. Received in fixative is one container labeled with the patient's name and designated Cervix. The specimen consists of a turk indurated piece of tissue consistent with leep colonization measuring 2.5 x 2.0 x 0.5cm. No mucosal lesion is identified. Non-mucosal surface is inked black. Also present in the container is a detached piece of turk indurated tissue measuring 1.1 x 0.5 x 0.1cm. No mucosal lesion is identified. Non-mucosal surface is inked black. Endocervical margin is inked black. Both pieces are serially sectioned and submitted entirely in five cassettes as follows: leep colonization (each cassette containing one quadrant), 5- smaller piece of tissue. B. Received in fixative is one container labeled with the patient's name and designated Endocervical curettings. The specimen consists of multiple irregular fragments of turk mucoid tissue that in aggregate measure 0.5 x 0.5 x 0.1 cm. The specimen is totally Patient Age/Sex Location Account Attending Physician KATIE PULLIAM 29/ [facility] [id number] Dr. Cintia Mcgee MD submitted in one cassette. Sintia 06/29/2024 TC:3 CPT:44039,92708 Patient Age/Sex Location Account Attending Physician KATIE PULLIAM / [facility] [id number] Dr. Cintia Mcgee MD Signed (signature on file) Dr. Jose Blake DO 07/01/24 1115 Normal [facility] Comment on above: Performed By: #### L 700.8000 #### [facility] [address] [place], [place], [id number] Type AND Screen - PAT ONLYon 06-28-2024 Ab SCREEN GEL Negative Normal [facility] Comment on above: Order Comment: UNK Performed By: #### L 100.0100, L506.0400, L3300.3500, L500.4100, L500.4050, L505.5000, L501.9985, L501.9520 #### [facility] [address] [place] [address], [address] p16 (initial)on 06-28-2024 p16 (initial) ------- Patient Age/Sex Location Account Attending Physician KATIE PULLIAM [facility] [id number] Dr. Cintia Mcgee MD Specimen: [id number] Received: 06/30/24 Status: HERBER Nuñez Num: [id number] Spec Type: IMMUNO Subm Dr: Dr. Cintia Mcgee MD PHYSICIAN INSTITUTION [address] [address] SPECIMEN INFORMATION: Tissue Source: A- Cervix Clinical Info: FRANCISCO II with severe dysplasia Specimen Number: [id number] CPT code: 24670,87825v3 METHODOLOGY: Deparaffinized sections of prefer/formalin-fixed tissue or PAP/DQ stained slides are incubated with monoclonal/polyclonal antibodies/oligonucleotide probes. Localization is made via biotin free immunoperoxidase method. Appropriate controls are performed and reacted as expected. Results on target cell population are indicated in the following table: RESULTS: ANTIBODY / CLONE RESULT Block A 1 P16 (E6H4) negative Ki-67 (30-9) negative Block A2 P16 (E6H4) negative Ki-67 (30-9) negative Block A3 P16 (E6H4) negative Ki-67 (30-9) negative Block A4 P16 (E6H4) positive, focal, patchy Ki-67 (30-9) positive, low These tests were developed and their performance characteristics determined by [facility]. They may not have been cleared or approved by the U.S. Food and Drug Administration. The FDA has determined that such clearance or approval is not necessary. The above immunohistochemical/dualISH markers are ordered and reviewed by the Pathologist. INTERPRETATION: A. Cervix, leep colonization: Focal HPV change suspected. AM:cc 07/01/2024 Signed (signature on file) Dr. Jose Blake, 07/01/24 1117 Normal [facility] Comment on above: Performed By: #### L 700.8000 #### [facility] [address] [place], [address] Street Light Servicer Supervisor Office Visit Reporton 06-20-2024 Street Light Servicer Supervisor Office Visit Report [facility] [address], [address] [place] [address] OFFICE VISIT Date of Service: 06/20/24 MR#: [id number] Acct: [id number] Name: KATIE PULLIAM Rep #: [id number] : 1995 Provider: Dr. Cintia kohler MD Age/Sex: 29/F Location: [facility] Status: Signed Intake Vital Signs 04/25/24 10:24 06/02/24 08:55 06/20/24 15:56 06/20/24 15:58 Height 5 ft 2 in 5 ft 2 in 5 ft 2 in 5 ft 2 in Weight: 234 lb BMI 42.7 BP 128/83 H Intake Visit Reasons: [facility] Thermodynamics Professor Required: No Allergies adhesive tape Allergy (Intermediate, Verified 06/20/24 15:57) abrasion Influenza Virus Vaccines Allergy (Intermediate, Verified 06/20/24 15:57) Swelling norethindrone (From Aygestin) Allergy (Intermediate, Verified 06/20/24 15:57) Rash hydrocodone (From Vicodin) Adverse Reaction (Verified 06/20/24 15:57) Other Medications ???Medication ???Instructions ???Recorded ???Confirmed ???Type albuterol sulfate 90 mcg/actuation 2 puff inhalation Q4H PRN 06/16/24 06/20/24 History aerosol inhaler shortness of breath or wheezing multivitamin (Daily Multi-Vitamin 1 tab PO DAILY 06/16/24 06/20/24 History tablet) Patient : No : No PFSH Medical History Vasovagal response Vasovagal near syncope Near syncope 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 Wears glasses Wears contact lenses Alcohol use Easy bruising Back pain Difficulty swallowing Diarrhea Non-smoker Leg cramps History of stress test History of echocardiogram Cardiology follow-up encounter Hx of fracture of finger Fertility testing COVID-19 COVID-19 Seasonal allergies Knee pain Fatigue Family history of DVT Abnormal stress test Depression Congenital pulmonic valve stenosis Pancreatitis Heart murmur Headaches, cluster Anxiety Surgical History Hx of esophagogastroduodenoscopy Hx of wisdom tooth extraction History of appendectomy H/O lateral meniscus repair of left knee Hx of cholecystectomy Hx of right breast biopsy Family History Father Hypertension Myocardial infarction, Onset Age: 32 Grandfather Hypertension Diabetes Myocardial infarction, Onset Age: 53 x2 CAD (coronary artery disease) Grandmother Kidney failure Liver cirrhosis Heart disease Mother Fibrosis of liver Gluten intolerance Other Arthritis Asthma Bleeding disorder CVA (cerebral vascular accident) Cancer Gout Sudden cardiac Thyroid disorder Social History Smoking Status: Never smoker alcohol intake: current alcohol intake frequency: holidays/special occasions only details: social substance use type: does not use caffeine: Yes what type of physical activity do you participate in: walking and running frequency: 5-6 times per week seatbelt use: always do you feel safe at home: Yes 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 planning LEEP Female Reproductive History Menopausal Symptoms: No night sweats History 1 Elective abortions Hx Para 0 Spontaneous abortions 1 Hx # Term Pregnancies Ectopic pregnancies Hx # Pregnancies Multiple births # of living children ROS Const Constitutional: Denies fatigue, night sweats, weight gain or weight loss ENT ENT: Reports system reviewed and no additional complaints, except as documented Cardio Card: Denies chest pain Resp Resp: Denies cough or dyspnea GI GI: Reports as per HPI; Denies abdominal pain, constipation, nausea or vomiting : Denies nipple discharge, urinary frequency, urinary incontinence, urinary hesitancy, urinary urgency, vaginal discharge, vaginal dryness, vaginal odor or vaginal pruritus Musc Musc: Denies arthralgias, back pain or muscle weakness Skin Skin/Breast: Denies alopecia, change in hair, dry skin, breast mass, breast pain, breast skin changes or nipple discharge Neuro Neuro: Reports system reviewed and no additional complaints, except as documented Psych Psych: Reports system reviewed and no additional complaints, except as documented Endo Endo: Denies cold intolerance, excessive sweating, heat intolerance or polydipsia Juan/Lymph Hematologic/Lymphatic: Denies easy bleeding, Denies easy bruising and Denies lymphadenopathy Exam Const General: cooperative, healthy appearing, comfortable and no acute distress Orientation: alert [facility] Head: normal to inspection and normocephalic Ears: hearing grossly normal bilaterally (more content not included)... Normal [facility] hCG Titer Quant., Serumon HCG QUANT. 1 mIU/mL Normal 1-3 [facility] Comment on above: Result Comment: hCG levels with Gestational Age Gestational Age hCG mIU/mL (IU/L) 0.2 - 1 week 5 - 50 1-2 weeks 50 - 500 2-3 weeks 100 - 5000 3-4 weeks 500 - 69808 4-5 weeks 1000 - 05082 5-6 weeks 05319 - 100,000 6-8 weeks 52795 - 200,000 2-3 months 37674 - 100,000 Performed By: #### L 100.0100, L506.0400, L3300.3500, L500.4100, L500.4050, L505.5000, L501.9985, L501.9520 #### [facility] [address] [place], [address] Street Light Servicer Supervisor Office Visit Reporton 06-02-2024 Street Light Servicer Supervisor Office Visit Report [facility] [place] [address] [place] [address] OFFICE VISIT Date of Service: 06/02/24 MR#: [id number] Acct: [id number] Name: KATIE PULLIAM Rep #: [id number] : 1995 Provider: Dr. Trista Armas DO Age/Sex: 29/F Location: [facility] Status: Signed Intake Vital Signs 05/31/24 19:06 06/02/24 08:55 06/02/24 08:55 Height 5 ft 2 in 5 ft 2 in 5 ft 2 in Weight: 230 lb 8 oz BMI 42.1 BP 130/84 H Intake Visit Reasons: possible miscarriage Thermodynamics Professor Required: No Is patient in pain?: No Allergies adhesive tape Allergy (Intermediate, Verified 06/02/24 08:55) abrasion Influenza Virus Vaccines Allergy (Intermediate, Verified 06/02/24 08:55) Swelling norethindrone (From Aygestin) Allergy (Intermediate, Verified 06/02/24 08:55) Rash hydrocodone (From Vicodin) Adverse Reaction (Verified 06/02/24 08:55) Other Medications ???Medication ???Instructions ???Recorded ???Confirmed ???Type ondansetron 4 mg disintegrating 4 mg PO Q6H #14 tabs 05/31/24 06/02/24 Rx tablet oxycodone-acetaminophen 5 mg-325 1 tab PO Q6H PRN pain 2 days #8 05/31/24 06/02/24 Rx mg tablet (Endocet) tabs Post menopausal: No : No PFSH Medical History Vasovagal near syncope Near syncope 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 Wears glasses Wears contact lenses Alcohol use Easy bruising Back pain Difficulty swallowing Diarrhea Non-smoker Leg cramps History of stress test History of echocardiogram Cardiology follow-up encounter Hx of fracture of finger Fertility testing COVID-19 COVID-19 Seasonal allergies Knee pain Fatigue Family history of DVT Abnormal stress test Depression Congenital pulmonic valve stenosis Pancreatitis Heart murmur Headaches, cluster Anxiety Surgical History Hx of wisdom tooth extraction History of appendectomy H/O lateral meniscus repair of left knee Hx of cholecystectomy Hx of right breast biopsy Family History Father Hypertension Myocardial infarction, Onset Age: 32 Grandfather Hypertension Diabetes Myocardial infarction, Onset Age: 53 x2 CAD (coronary artery disease) Grandmother Kidney failure Liver cirrhosis Heart disease Mother Fibrosis of liver Gluten intolerance Other Arthritis Asthma Bleeding disorder CVA (cerebral vascular accident) Cancer Gout Sudden cardiac Thyroid disorder Social History Smoking Status: Never smoker alcohol intake: current alcohol intake frequency: holidays/special occasions only details: social substance use type: does not use caffeine: Yes what type of physical activity do you participate in: walking and running frequency: 5-6 times per week seatbelt use: always do you feel safe at home: Yes 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 was seen in ER and ultrasound showed: CLINICAL INDICATION: left pain concern for ectopic TECHNIQUE: Real-time transvaginal obstetrical ultrasound of the maternal pelvis and a first trimester with image documentation. Transvaginal imaging was used for better evaluation of the fetus and adnexa. COMPARISON: 12/25/2022 FINDINGS: GESTATION: No IUP is identified. PLACENTA/AMNIOTIC FLUID: Cannot be adequately evaluated due to the early gestational age. UTERUS/CERVIX: The cervix is closed. No myometrial mass. The uterus measures 7.0 x 4.1 x 2.9 cm. The endometrial stripe measures 0.9 cm in thickness. OVARIES: Within the right ovary, there are 2 complex appearing cystic foci measuring up to 1.7 cm, at least one of which appears to be a corpus luteum. The right ovary measures 3.8 x 2.5 x 2.0 cm. The left ovary measures 3.1 x 1.9 x 2.5 cm. No left ovarian mass or cyst. FREE FLUID: No free fluid is identified. 05/31/242107 Date cc: Dr. Francisco Stock MD; Dr. Reji Gagnon DO * Signed ADDENDUM by Dr. Wilfredo Carlson DO on 05/31/24 at 2108 US/Transvaginal w/Preg US IMPRESSION: 1. Within the right ovary, there are 2 complex appearing cystic foci, at least one of which appears to be a corpus luteum. These both appear to be discretely intraovarian. Doubt intraovarian ectopic . Consider short-term follow-up and correlation with quantitative hCG. 2. No IUP is identified. N.B. : Th (more content not included)... Normal [facility] hCG Titer Quant., Serumon HCG QUANT. 5 mIU/mL High 1-3 [facility] Comment on above: Performed By: #### L 100.0100, L506.0400, L3300.3500, L500.4100, L500.4050, L505.5000, L501.9985, L501.9520 #### [facility] [address] [place], [address] CBC W/Diff, Automatedon Absolute Lymph 2.01 X10 3/uL Normal 0.83-4.51 [facility] Comment on above: Performed By: #### L 100.0100, L500.4050, L700.6800 ####[facility] [address] [place], [address] Absolute Neut 4.8 X10 3/uL Normal 2.0-7.7 [facility] Comment on above: Performed By: #### L 100.0100, L500.4050, L700.6800 ####[facility] [address] [place], [address] Basophils/100 WBC (Bld) 0.5 % Normal 0-1 [facility] Comment on above: Performed By: #### L 100.0100, L500.4050, L700.6800 ####[facility] [address] [place], [address] Eosinophils/100 WBC (Bld) 0.9 % Normal 0-5 [facility] Comment on above: Performed By: #### L 100.0100, L500.4050, L700.6800 ####[facility] [address] [place], [address] Erythrocyte distribution width (RBC) [Ratio] 13.6 % Normal 11.6-14.6 [facility] Comment on above: Performed By: #### L 100.0100, L500.4050, L700.6800 ####[facility] [address] [place], [address] Hematocrit (Bld) [Volume fraction] 41.5 % Normal 37-47 [facility] Comment on above: Performed By: #### L 100.0100, L500.4050, L700.6800 ####[facility] [address] [place], [address] Hemoglobin (Bld) [Mass/Vol] 13.3 g/dL Normal 12.0-15.0 [facility] Comment on above: Performed By: #### L 100.0100, L500.4050, L700.6800 ####[facility] [address] [place], [address] IG% 0.300 Normal 0.0-0.9 [facility] Comment on above: Result Comment: IG% - Immature Granulocytes (promyelocytes, myelocytes and metamyelocytes) > 1% indicates that a LEFT SHIFT is Present. Performed By: #### L 100.0100, L500.4050, L700.6800 ####[facility] [address] [place], [address] Lymphocytes/100 WBC (Bld) 27.2 % Normal 19-41 [facility] Comment on above: Performed By: #### L 100.0100, L500.4050, L700.6800 ####[facility] [address] [place], [address] MCH (RBC) [Entitic mass] 27.9 pg Normal 27.0-32.0 [facility] Comment on above: Performed By: #### L 100.0100, L500.4050, L700.6800 ####[facility] [address] [place], [address] MCHC (RBC) [Mass/Vol] 32.0 g/dL Normal 32-36 [facility] Comment on above: Performed By: #### L 100.0100, L500.4050, L700.6800 ####[facility] [address] [place], [address] MCV (RBC) [Entitic vol] 87.0 fL Normal 81-99 [facility] Comment on above: Performed By: #### L 100.0100, L500.4050, L700.6800 ####[facility] [address] [place], [address] Monocytes/100 WBC (Bld) 6.5 % Normal 0-10 [facility] Comment on above: Performed By: #### L 100.0100, L500.4050, L700.6800 ####[facility] [address] [place], [address] Neutrophils/100 WBC (Bld) 64.6 % Normal 47-70 [facility] Comment on above: Performed By: #### L 100.0100, L500.4050, L700.6800 ####[facility] [address] [place], [address] Nucleated RBC (Bld) [#/Vol] 0 10*3/uL Normal 0-5 [facility] Comment on above: Performed By: #### L 100.0100, L500.4050, L700.6800 ####[facility] [address] [place], [address] Platelet mean volume (Bld) [Entitic vol] 10.9 fL Normal 6.2-12.0 [facility] Comment on above: Performed By: #### L 100.0100, L500.4050, L700.6800 ####[facility] [address] [place], [address] Platelets (Bld) [#/Vol] 312 10*3/uL Normal 150-450 [facility] Comment on above: Performed By: #### L 100.0100, L500.4050, L700.6800 ####[facility] [address] [place], [address] RBC (Bld) [#/Vol] 4.77 10*6/uL Normal 4.2-5.4 [facility] Comment on above: Performed By: #### L 100.0100, L500.4050, L700.6800 ####[facility] [address] [place], [address] RDW SD 43.4 fl Normal 35.1-43.9 [facility] Comment on above: Performed By: #### L 100.0100, L500.4050, L700.6800 ####[facility] [address] [place], [address] WBC (Bld) [#/Vol] 7.4 10*3/uL Normal 4.4-11.0 [facility] Comment on above: Performed By: #### L 100.0100, L500.4050, L700.6800 ####[facility] [address] [place], [address] Comprehensive Metabolic Prof [facility] 05-31-2024 Albumin [Mass/Vol] 3.3 g/dL Normal 3.2-5.0 [facility] Comment on above: Performed By: #### L 100.0100, L500.4050, L700.6800 ####[facility] [address] [place], [address] Albumin/Globulin [Mass ratio] 0.8 {ratio} Low 0.9-2.4 [facility] Comment on above: Performed By: #### L 100.0100, L500.4050, L700.6800 ####[facility] [address] [place], [address] ALK P 79 U/L Normal 45-117 [facility] Comment on above: Performed By: #### L 100.0100, L500.4050, L700.6800 ####[facility] [address] [place], [address] ALT [Catalytic activity/Vol] 20 U/L Normal 13-56 [facility] Comment on above: Performed By: #### L 100.0100, L500.4050, L700.6800 ####[facility] [address] [place], [address] AST [Catalytic activity/Vol] 18 U/L Normal 15-37 [facility] Comment on above: Performed By: #### L 100.0100, L500.4050, L700.6800 ####[facility] [address] [place], [address] Bilirubin [Mass/Vol] 0.30 mg/dL Normal 0.20-1.00 [facility] Comment on above: Result Comment: For patients on eltrombopag therapy, use of Dimension Spout [place] TBIL is not recommended. Performed By: #### L 100.0100, L500.4050, L700.6800 ####[facility] [address] [place], [address] BUN/CRE 17.6 RATIO Normal 10-20 [facility] Comment on above: Performed By: #### L 100.0100, L500.4050, L700.6800 ####[facility] [address] [place], [address] CA,Total 8.6 mg/dL Normal 8.5-10.1 [facility] Comment on above: Performed By: #### L 100.0100, L500.4050, L700.6800 ####[facility] [address] [place], [address] Chloride [Moles/Vol] 106 mmol/L Normal 98-107 [facility] Comment on above: Performed By: #### L 100.0100, L500.4050, L700.6800 ####[facility] [address] [place], [address] CO2 [Moles/Vol] 28.0 mmol/L Normal 21.0-32.0 [facility] Comment on above: Performed By: #### L 100.0100, L500.4050, L700.6800 ####[facility] [address] [place], [address] Creatinine [Mass/Vol] 0.62 mg/dL Normal 0.55-1.02 [facility] Comment on above: Result Comment: The validity of the calculated GFR GFRAA in patients over 70 years has not been determined. Clinical correlation is essential. Performed By: #### L 100.0100, L500.4050, L700.6800 ####[facility] [address] [place], [address] ECRCL 152.91 ml/min Normal [facility] Comment on above: Performed By: #### L 100.0100, L500.4050, L700.6800 ####[facility] [address] [place], [address] EST GFR - AA 146 mL/min Normal >60 [facility] Comment on above: Result Comment: Afri can Macanese GFR Calc Performed By: #### L 100.0100, L500.4050, L700.6800 ####[facility] [address] [place], [address] GAP 6 Normal 5-15 [facility] Comment on above: Performed By: #### L 100.0100, L500.4050, L700.6800 ####[facility] [address] [place], [address] GFR/1.73 sq M.predicted among non-blacks MDRD (S/P/Bld) [Vol rate/Area] 121 mL/min/{1.73_m2} Normal >60 [facility] Comment on above: Result Comment: Non- GFR Calc Performed By: #### L 100.0100, L500.4050, L700.6800 ####[facility] [address] [place], [address] Globulin (S) [Mass/Vol] 4.0 g/dL Normal 2.2-4.2 [facility] Comment on above: Performed By: #### L 100.0100, L500.4050, L700.6800 ####[facility] [address] [place], [address] Glucose [Mass/Vol] 108 mg/dL High 74-106 [facility] Comment on above: Result Comment: Fast ing Glucose result from 100 to 125 mg/dL suggests IMPAIRED HOMEOSTASIS per A.D.A. criteria. Performed By: #### L 100.0100, L500.4050, L700.6800 ####[facility] [address] [place], [address] Potassium [Moles/Vol] 3.5 mmol/L Normal 3.5-5.1 [facility] Comment on above: Performed By: #### L 100.0100, L500.4050, L700.6800 ####[facility] [address] [place], [address] Sodium [Moles/Vol] 140 mmol/L Normal 136-145 [facility] Comment on above: Performed By: #### L 100.0100, L500.4050, L700.6800 ####[facility] [address] [place], [address] T PROT 7.3 g/dL Normal 6.4-8.2 [facility] Comment on above: Performed By: #### L 100.0100, L500.4050, L700.6800 ####[facility] [address] [place], [address] Urea nitrogen [Mass/Vol] 11 mg/dL Normal 7-18 [facility] Comment on above: Performed By: #### L 100.0100, L500.4050, L700.6800 ####[facility] [address] [place], [address] Emergency Department Summary on 05-31-2024 Emergency Department Summary [facility] Medical Records Department [address] [place] [address] Emergency Department Summary 05/31/24 MR#: [id number] Acct: [id number] Name: KATIE PULLIAM Rep #: [id number] : 1995 29 From: Reji Gagnon DO PCP: Dr. Francisco Stock MD Status:REG ER Location: ED HPI HPI - Female History of Present Illness Chief Complaint: Vag Bld, Preg Narrative Narrative: Patient is a 29-year-old female G1, P0 with a past medical history of anxiety, depression who presented to the emergency department chief complaint of abdominal pain. Patient states that last Thursday she had a positive test in the ELECTRICAL DESIGN TECHNICIAN office while having a colposcopy performed. They state that she had that procedure discontinued at that point in time. She states that she had some spotting through the weekend and noted that she has had increasing pain. She states that she has had hCG checks and noted that the 1 was in the 20s and the other 1 went down after this. She states that she had some spotting today and noted that she contacted her ELECTRICAL DESIGN TECHNICIAN and advised her to come here for the evaluation management. 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 Wears glasses Wears contact lenses Alcohol use Easy bruising Back pain Difficulty swallowing Diarrhea Non-smoker Leg cramps History of stress test History of echocardiogram Cardiology follow-up encounter Hx of fracture of finger Fertility testing COVID-19 COVID-19 Seasonal allergies Knee pain Fatigue Family history of DVT Abnormal stress test Depression Congenital pulmonic valve stenosis Pancreatitis Heart murmur Headaches, cluster Anxiety Home Medications ???Medication ???Instructions ???Recorded ???Last Taken ???Type ondansetron 4 mg disintegrating 4 mg PO Q6H #14 tabs 05/31/24 Unknown Rx tablet oxycodone-acetaminophen 5 mg-325 1 tab PO Q6H PRN pain 2 days #8 05/31/24 Unknown Rx mg tablet (Endocet) tabs Allergy/AdvReac Type Severity Reaction Status Date / Time adhesive tape Allergy Intermediate abrasion Verified 05/31/24 19:10 Influenza Virus Vaccines Allergy Intermediate Swelling Verified 05/31/24 19:10 norethindrone (From Aygestin) Allergy Intermediate Rash Verified 05/31/24 19:10 hydrocodone (From Vicodin) AdvReac Other Verified 05/31/24 19:10 Family History Father Hypertension Myocardial infarction, Onset Age: 32 Grandfather Hypertension Diabetes Myocardial infarction, Onset Age: 53 x2 CAD (coronary artery disease) Grandmother Kidney failure Liver cirrhosis Heart disease Mother Fibrosis of liver Gluten intolerance Other Arthritis Asthma Bleeding disorder CVA (cerebral vascular accident) Cancer Gout Sudden cardiac Thyroid disorder Surgical History Hx of wisdom tooth extraction History of appendectomy H/O lateral meniscus repair of left knee Hx of cholecystectomy Hx of right breast biopsy Social History Smoking Status: Never smoker alcohol intake: current alcohol intake frequency: holidays/special occasions only details: social substance use type: does not use caffeine: Yes what type of physical activity do you participate in: walking and running frequency: 5-6 times per week seatbelt use: always do you feel safe at home: Yes additional social history: Works at [employer] ROS ROS ED ROS Narrative Constitutional: Denies any fevers, chills, headaches Eyes: Denies changes visual vision blurry vision Cardiovascular: Denies chest pain or palpitations Respiratory: Denies coughing wheezing shortness of breath Abdomen: Complains of abdominal pain as noted above as well as nausea denies vomiting or diarrhea : Complains of positive test with vaginal bleeding and spotting as noted above Neurological: Denies numbness, weakness, tingling EXAM Physical Exam Narrative Exam Narrative: General: Patient was lying in bed rest comfortably did not appear in acute distress Head: Atraumatic, normocephalic Eyes: PERRL bilaterally, EOMI bilaterally, no conjunctival injection noted Neck: Soft, supple, trach midline Cardiovascular: Regular rate and rhythm no murmurs noted Respiratory: Clear to auscultation bilaterally Abdomen: Soft and nondistended, tender to palpation in the left lower quadrant no rebound or guarding on exam Genitourinary: Pelvic exam was performed and no active bleeding noted there was some old blood noted i (more content not included)... Normal [facility] ,Serum,hCG Quali.on 05-31-2024 HCG, SERUM QUAL Positive Abnormal [facility] Comment on above: Order Comment: GOPI WEISS CALLED TO MMARTIN 05/31/242031 Glenna Shay.REPORT READ BACK BY SAME. Result Comment: PREG KASANDRA TEST is *POSITIVE* Performed By: #### L 100.0100, L500.4050, L700.6800 ####[facility] [address] [facility], [address] Transvaginal w/Preg USon Transvaginal w/Preg US [facility] [address], [place] [address] Transvaginal w/Preg US MR#: [id number] Acct: [id number] Name: KATIE PULLIAM Rep #: [id number] : 1995 F 29 From: Wilfredo smith DO PCP: Dr. Francisco Stock MD Status: [facility] Study: Transvaginal w/Preg US Date of Exam: 05/31/24 Exam# [id number] Ordering Dr: Reji Gagnon DO ADDENDUM by Dr. Wilfredo Carlson DO on 05/31/24 at 2108 [id number] EXAM: US , TRANSVAGINAL CLINICAL INDICATION: left pain concern for ectopic TECHNIQUE: Real-time transvaginal obstetrical ultrasound of the maternal pelvis and a first trimester with image documentation. Transvaginal imaging was used for better evaluation of the fetus and adnexa. COMPARISON: 12/25/2022 FINDINGS: GESTATION: No IUP is identified. PLACENTA/AMNIOTIC FLUID: Cannot be adequately evaluated due to the early gestational age. UTERUS/CERVIX: The cervix is closed. No myometrial mass. The uterus measures 7.0 x 4.1 x 2.9 cm. The endometrial stripe measures 0.9 cm in thickness. OVARIES: Within the right ovary, there are 2 complex appearing cystic foci measuring up to 1.7 cm, at least one of which appears to be a corpus luteum. The right ovary measures 3.8 x 2.5 x 2.0 cm. The left ovary measures 3.1 x 1.9 x 2.5 cm. No left ovarian mass or cyst. FREE FLUID: No free fluid is identified. 05/31/242107 Date cc: Dr. Francisco Stock MD; Dr. Reji Gagnon DO * Signed ADDENDUM by Dr. Wilfredo Carlson DO on 05/31/24 at 2108 US/Transvaginal w/Preg US IMPRESSION: 1. Within the right ovary, there are 2 complex appearing cystic foci, at least one of which appears to be a corpus luteum. These both appear to be discretely intraovarian. Doubt intraovarian ectopic . Consider short-term follow-up and correlation with quantitative hCG. 2. No IUP is identified. N.B. : The above Results were Read Back by Wilfredo Carlson DO to Reji Gagnon DO, and understanding confirmed on 05/31/2024 21:18:56 (ET). Electronically Signed: Wilfredo Carlson DO at 21:08 EDT , 05/31/242124 Date cc: Dr. Francisco Stock MD; Dr. Reji Gagnon DO * Signed We are attempting to reach an attending provider to discuss findings. An addendum with communication details will be sent when the communication is complete. [id number] EXAM: US , TRANSVAGINAL CLINICAL INDICATION: left pain concern for ectopic TECHNIQUE: Real-time transvaginal obstetrical ultrasound of the maternal pelvis and a first trimester with image documentation. Transvaginal imaging was used for better evaluation of the fetus and adnexa. COMPARISON: 12/25/2022 FINDINGS: GESTATION: No IUP is identified. PLACENTA/AMNIOTIC FLUID: Cannot be adequately evaluated due to the early gestational age. UTERUS/CERVIX: The cervix is closed. No myometrial mass. The uterus measures 7.0 x 4.1 x 2.9 cm. The endometrial stripe measures 0.9 cm in thickness. OVARIES: Within the right ovary, there are 2 complex appearing cystic foci measuring up to 1.7 cm, at least one of which appears to be a corpus luteum. The right ovary measures 3.8 x 2.5 x 2.0 cm. The left ovary measures 3.1 x 1.9 x 2.5 cm. No left ovarian mass or cyst. FREE FLUID: No free fluid is identified. US/Transvaginal w/Preg US IMPRESSION: 1. Within the right ovary, there are 2 complex appearing cystic foci, at least one of which appears to be a corpus luteum. These both appear to be discretely intraovarian. Doubt intraovarian ectopic . Consider short-term follow-up and correlation with quantitative hCG. 2. No IUP is identified. Electronically Signed: Wilfredo Carlson DO at 21:08 EDT , CC: Dr. Francisco Stock MD; Dr. Reji Gagnon DO Airways Control Specialist: Signed Normal [facility] Urinalysis, Completeon 05-31 BACTERIA RARE Normal None Seen [facility] Comment on above: Order Comment: CLEAN CATCH Performed By: #### L 400.0001 ####[facility] [address] [place], [place], [address] EPI,SQUAMOUS 0-5 SEEN Normal 5-10 [facility] Comment on above: Order Comment: CLEAN CATCH Performed By: #### L 400.0001 ####[facility] [address] [place], [address] Mucus Ql (Urine sed) 0 SEEN Normal [facility] Comment on above: Order Comment: CLEAN CATCH Performed By: #### L 400.0001 ####[facility] [address] [place], [address] RBC 0 SEEN Normal 0-5 [facility] Comment on above: Order Comment: CLEAN CATCH Performed By: #### L 400.0001 ####[facility] [address] [place], [address] WBC 0-5 SEEN Normal 0-5 [facility] Comment on above: Order Comment: CLEAN CATCH Performed By: #### L 400.0001 ####[facility] [address] [place], [place], [address] hCG Titer Quant., Serumon HCG QUANT. 16 mIU/mL High 1-3 [facility] Comment on above: Result Comment: hCG levels with Gestational Age Gestational Age hCG mIU/mL (IU/L) 0.2 - 1 week 5 - 50 1-2 weeks 50 - 500 2-3 weeks 100 - 5000 3-4 weeks 500 - 57678 4-5 weeks 1000 - 96731 5-6 weeks 47820 - 100,000 6-8 weeks 24615 - 200,000 2-3 months 35512 - 100,000 Performed By: #### L 700.8000 ####[facility] [address] [place], [place], [address] HCG QUANT. 18 mIU/mL [facility] [address] [place] [address] Comment on above: Result Comment: hCG levels with Gestational Age Gestational Age hCG mIU/mL (IU/L) 0.2 - 1 week 5 - 50 1-2 weeks 50 - 500 2-3 weeks 100 - 5000 3-4 weeks 500 - 66573 4-5 weeks 1000 - 94144 5-6 weeks 74361 - 100,000 6-8 weeks 50690 - 200,000 2-3 months 77666 - 100,000 Performed By: #### L 100.0100, L506.0400, L3300.3500, L500.4100, L500.4050, L505.5000, L501.9985, L501.9520 #### [facility] [address] [place], [address] hCG Titer Quant., Serumon HCG QUANT. 25 mIU/mL High 1-3 [facility] Comment on above: Result Comment: hCG levels with Gestational Age Gestational Age hCG mIU/mL (IU/L) 0.2 - 1 week 5 - 50 1-2 weeks 50 - 500 2-3 weeks 100 - 5000 3-4 weeks 500 - 01006 4-5 weeks 1000 - 93031 5-6 weeks 65381 - 100,000 6-8 weeks 55078 - 200,000 2-3 months 86820 - 100,000 Performed By: #### L 700.8000 ####[facility] [address] [place], [address] HCG BETA-SUBUNIT QUANT.on HCG B-SUBUNIT 15 mIU/mL Normal . [facility] Comment on above: Result Comment: Fema le (Non-) 0 - 5 (Postmenopausal) 0 - 8 Female () Weeks of Gestation 3 6 - 71 4 10 - 750 5 392 - 2652 6 158 - 62635 7 0613 -104223 8 43534 -931930 9 47144 -245365 10 68459 -326017 12 78626 -519884 14 02299 - 94311 15 15438 - 29980 16 3735 - 24300 17 6603 - 28811 18 8780 - 63744 Kelvin ECLIA methodology Performed at: [facility] [id number] Biometric Technician: Roque Soriano PhD, Phone: [phone] Performed By: #### L 100.0100, L506.0400, L3300.3500, L500.4100, L500.4050, L505.5000, L501.9985, L501.9520 #### [facility] [address] [place], [place], [address] KI-67 (initial)on 05-27-2024 KI-67 (initial) ------- Patient Age/Sex Location Account Attending Physician KATIE PULLIAM / LAB [id number] Dr. Trista Lala, [place] Specimen: [id number] Received: 05/31/24 Status: HERBER Garsiashannen Num: [id number] Spec Type: IMMUNO Subm Dr: Dr. Trista Lala, PHYSICIAN INSTITUTION [place] [address] SPECIMEN INFORMATION: Tissue Source: A. ECC, B, 11o'clock biopsy Clinical Info: [facility] Specimen Number: [id number] A, B CPT code: 70029p9,60869h4 METHODOLOGY: Deparaffinized sections of prefer/formalin-fixed tissue or PAP/DQ stained slides are incubated with monoclonal/polyclonal antibodies/oligonucleotide probes. Localization is made via biotin free immunoperoxidase method. Appropriate controls are performed and reacted as expected. Results on target cell population are indicated in the following table: RESULTS: ANTIBODY / CLONE RESULT Block A P16 (E6H4) positive Ki-67 (30-9) positive, moderate to high Block B P16 (E6H4) positive, block-like Ki-67 (30-9) positive, moderate These tests were developed and their performance characteristics determined by [facility]. They may not have been cleared or approved by the U.S. Food and Drug Administration. The FDA has determined that such clearance or approval is not necessary. The above immunohistochemical/dualISH markers are ordered and reviewed by the Pathologist. INTERPRETATION: A. Endocervical curettings: Dyplastic squamous cell present. B. Cervix, 11o'clock, biopsy: Moderate squamous dysplastic, FRANCISCO II (HSIL). AM/mr 06/01/2024 Signed (signature on file) Dr. Jose Blake, 06/01/24 1117 Normal [facility] Comment on above: Performed By: #### L 700.8000 #### [facility] [address] [place], [address] Street Light Servicer Supervisor Office Visit Reporton 05-27-2024 Street Light Servicer Supervisor Office Visit Report [facility] [place] [address] [place] [address] OFFICE VISIT Date of Service: 05/27/24 MR#: [id number] Acct: [id number] Name: KATIE HCENG Rep #: [id number] : 1995 Provider: Dr. Trista Armas DO Age/Sex: 29/F Location: [facility] Status: Signed Intake Vital Signs 04/25/24 10:24 05/20/24 10:12 05/27/24 11:42 05/27/24 11:44 Height 5 ft 2 in 5 ft 2 in 5 ft 2 in 5 ft 2 in Weight: 227 lb 229 lb 8 oz BMI 41.5 42.0 BP 111/76 121/79 H Blood Pressure Location Rt brachial Position Sitting Respiration 16 Pulse 79 Pulse Source Monitor Intake Visit Reasons: Colposcopy Thermodynamics Professor Required: No Is patient in pain?: No Allergies adhesive tape Allergy (Intermediate, Verified 05/27/24 11:42) abrasion Influenza Virus Vaccines Allergy (Intermediate, Verified 05/27/24 11:42) Swelling norethindrone (From Aygestin) Allergy (Intermediate, Verified 05/27/24 11:42) Rash hydrocodone (From Vicodin) Adverse Reaction (Verified 05/27/24 11:42) Other Medications ???Medication ???Instructions ???Recorded ???Confirmed ???Type NK 04/25/24 05/27/24 History Post menopausal: No Patient : No : No PFSH PFSH Medical History Vasovagal near syncope Near syncope 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 Wears glasses Wears contact lenses Alcohol use Easy bruising Back pain Difficulty swallowing Diarrhea Non-smoker Leg cramps History of stress test History of echocardiogram Cardiology follow-up encounter Hx of fracture of finger Fertility testing COVID-19 COVID-19 Seasonal allergies Knee pain Fatigue Family history of DVT Abnormal stress test Depression Congenital pulmonic valve stenosis Pancreatitis Heart murmur Headaches, cluster Anxiety Surgical History Hx of wisdom tooth extraction History of appendectomy H/O lateral meniscus repair of left knee Hx of cholecystectomy Hx of right breast biopsy Family History Father Hypertension Myocardial infarction, Onset Age: 32 Grandfather Hypertension Diabetes Myocardial infarction, Onset Age: 53 x2 CAD (coronary artery disease) Grandmother Kidney failure Liver cirrhosis Heart disease Mother Fibrosis of liver Gluten intolerance Other Arthritis Asthma Bleeding disorder CVA (cerebral vascular accident) Cancer Gout Sudden cardiac Thyroid disorder Social History Smoking Status: Never smoker alcohol intake: current alcohol intake frequency: holidays/special occasions only details: social substance use type: does not use caffeine: Yes what type of physical activity do you participate in: walking and running frequency: 5-6 times per week seatbelt use: always do you feel safe at home: Yes additional social history: Works at [employer] History 0 Elective abortions Hx Para Spontaneous abortions Hx # Term Pregnancies Ectopic pregnancies Hx # Pregnancies Multiple births # of living children HPI Colposcopy Details: KATIE CHENG is a 29 year old who presents for HGSIL pap and colposcopy. She had a faint positive test. states both of her tubes are blocked and was going to see infertility specialist soon. ROS Const ROS Unobtainable: All systems reviewed are unremarkable except as noted in H Resp Resp: Reports system reviewed and no additional complaints, except as documented; Denies cough GI GI: Reports as per HPI Psych Psych: Reports system reviewed and no additional complaints, except as documented Exam Const General: cooperative, healthy appearing, comfortable and no acute distress Resp Effort Inspection: normal respiratory effort General: bimanual renal exam normal bilaterally External Female Exam: normal appearance of the urethra Urethra: normal appearance of the urethra Speculum Exam - Vagina: normal appearance of the vagina Speculum Exam - Cervix: normal appearance of the cervix Bimanual Exam- Adnexa, other: normal adnexae and normal Pelvic Support: normal Skin General: no rashes or lesions noted Psych Appearance: grossly normal Speech and Movement: speech and movement normal Office Procedures Colposcopy Colposcopy Reason for colposcopy: HSIL Pap/FRANCISCO history: no prior abnormal pap Consent Signed: Yes Acetowhite epithelium (cervix): 11 o'clock Punctation (cervix): none Mosaicism (cervix): none Abnormal vessels (cervix): widespread Biopsies (cervix): 11 o'clock biopsy Details: ECC and biopsy taken (more content not included)... Normal [facility] Surgery Specimen Level Hoda 05-27-2024 Surgery Specimen Level IV Patient Age/Sex Location Account Attending Physician KATIE PULLIAM 29/F LAB [id number] Dr. Trista Lala, [place] Specimen: [id number] Received: 05/27/24 Status: HERBER Nuñez Num: [id number] Spec Type: ENDOM BX/C Subm Dr: Dr. Trista Lala DO HEADER OPERATION: Colposcopy PRE-OP DIAGNOSIS: HGSIL TISSUE SUBMITTED: A- ECC, B- 11o'clock biopsy MICROSCOPIC DIAGNOSIS A. Endocervical curettings: Scant strips of benign superficial endocervix and detached dysplastic squamous epithelial cells. B. 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 Mild chronic inflammation. See comment. LAVINIA/ 05/31/2024 COMMENT A, B. Immunohistochemistry ([id number]) supports the above diagnosis. Case has been reviewed in consultation with Dr. Blake who concurs with the above diagnosis. IDC:AM MICROSCOPIC DESCRIPTION Slides are reviewed. GROSS DESCRIPTION A. Received in fixative is a metallic brush with adherent minute fragments of turk-red tissue and labeled with the patient's name and and designated per the requisition as ECC BRUSH. The material is dislodged from the brush and submitted for cell block preparation in one cassette. B. Received in fixative is one container labeled with the patient's name and designated 11o'clock. The specimen consists of one irregular fragment of light turk soft tissue that measures 0.4 x 0.4 x 0.1 cm. The specimen is totally submitted in one cassette. Sintia 05/30/2024 TC:0 CPT:37633v0 Patient Age/Sex Location Account Attending Physician KATIE PULLIAM 29/F LAB [id number] [place] Signed (signature on file) Dr. Jose Blake DO 06/01/24 1038 Normal [facility] Comment on above: Performed By: #### P SUIV ####[facility] [address] [place], [place], [address] hCG Titer Quant., Serumon HCG QUANT. 15 mIU/mL High 1-3 [facility] Comment on above: Result Comment: hCG levels with Gestational Age Gestational Age hCG mIU/mL (IU/L) 0.2 - 1 week 5 - 50 1-2 weeks 50 - 500 2-3 weeks 100 - 5000 3-4 weeks 500 - 99618 4-5 weeks 1000 - 88520 5-6 weeks 59573 - 100,000 6-8 weeks 55228 - 200,000 2-3 months 04162 - 100,000 Performed By: #### L 700.8000 #### [facility] [address] [place], [place], [address] Basophil percentageOrdered B y: Cintia Mcgee on 02-03-2024 Chloride [Moles/Vol] 108 mmol/L 98-107 [facility] Glucose [Mass/Vol] 106 mg/dL 74-106 [facility] Comment on above: Fasting Glucose resu lt from 100 to 125 mg/dL suggests IMPAIRED HOMEOSTASIS per A.D.A. criteria. Potassium [Moles/Vol] 3.5 mmol/L 3.5-5.1 [facility] Sodium [Moles/Vol] 140 mmol/L 136-145 [facility] Laboratory - Chemistry and C hemistry - challengeOrdered By: Cintia Mcgee on 02-03-2024 CO2 [Moles/Vol] 28.0 mmol/L 21.0-32.0 [facility] Urea nitrogen/Creatinine [Mass ratio] 17.7 mg/mg 10-20 [facility] No Panel InformationOrdered By: Cintia Mgcee on 02-03-2024 Estimated GFR (MDRD) Amer 121 mL/min >60 [facility] Comment on above: GFR Calc Estimated GFR (MDRD) Non-Af Amer 100 mL/min >60 [facility] Comment on above: Non- GFR Calc Serum or plasma calcium raad urement (mass/volume)Ordered By: Cintia Mcgee on 02-03-2024 Calcium [Mass/Vol] 8.8 mg/dL 8.5-10.1 [facility] Serum or plasma creatinine m easurement (mass/volume)Ordered By: Cintia Mcgee on 02-03-2024 Creatinine [Mass/Vol] 0.74 mg/dL 0.55-1.02 [facility] Comment on above: The validity of the calculated GFR & GFRAA in patients over 70 years has not been determined. Clinical correlation is essential. Serum or plasma urea nitroge n measurement (mass/volume)Ordered By: Cintia Mcgee on 02-03-2024 Urea nitrogen [Mass/Vol] 13 mg/dL 7-18 [facility] Thin prep Papanicolaou smear with manual screeningOrdered By: Cintia Mcgee on 02-03-2024 Thin prep Papanicolaou smear with manual screening 4 5-15 [facility] - Chemistry and C hemistry - challengeOrdered By: Cintia Mcgee on 09-10-2023 Free T4 [Mass/Vol] 1.00 ng/dL 0.76-1.46 [facility] No Panel InformationOrdered By: Cintia Mcgee on 09-10-2023 Thyroid Stimulating Hormone (TSH) 1.51 uIU/mL 0.358-3.74 [facility] Serum or plasma ferritin thierno surement (mass/volume)Ordered By: Cintia Mcgee on 09-10-2023 Ferritin [Mass/Vol] 64 ng/mL 8 [facility] Absolute lymphocyte countOrd ered By: HEALTH ASSESSMENT on 06-18-2023 Lymphocytes Auto (Unsp spec) [#/Vol] 2.68 10*3/uL 0.83-4.51 [facility] Absolute reticulocyte countO rdered By: HEALTH ASSESSMENT on 06-18-2023 Reticulocytes (Bld) [#/Vol] 0.00 10*3/uL 0-5 [facility] Basophil percentageOrdered B y: HEALTH ASSESSMENT on 06-18-2023 Basophil percentage 3.9 mg/dL 2.5-4.9 [facility] Bilirubin [Mass/Vol] 0.20 mg/dL 0.20-1.00 [facility] Comment on above: For patients on eltr ombopag therapy, use of Dimension [place]out [place] TBIL is not recommended. Chloride [Moles/Vol] 111 mmol/L 98-107 [facility] Cholesterol [Mass/Vol] 133 mg/dL <200 [facility] Comment on above: <200 mg/dL Desirable 200-240 mg/dL Borderline >240 mg/dL High Risk Glucose [Mass/Vol] 119 mg/dL 74-106 [facility] Comment on above: Fasting Glucose resu lt from 100 to 125 mg/dL suggests IMPAIRED HOMEOSTASIS per A.D.A. criteria. LDH [Catalytic activity/Vol] 159 U/L 84-246 [facility] Neutrophils (Bld) [#/Vol] 3.1 10*3/uL 2.0-7.7 [facility] Potassium [Moles/Vol] 3.8 mmol/L 3.5-5.1 [facility] Protein [Mass/Vol] 6.8 g/dL 6.4-8.2 [facility] Sodium [Moles/Vol] 142 mmol/L 136-145 [facility] Triglyceride [Mass/Vol] 115 mg/dL <199 [facility] Comment on above: The drugs N-Acetylcy steine and Metamizole may falsely depress this assay.Serum Triglycerides Reference Interval Normal <150 mg/dL Borderline high 150 - 199 mg/dL High 200 - 499 mg/dL Very High > or = 500 mg/dL WBC (Bld) [#/Vol] 6.4 10*3/uL 4.4-11.0 [facility] Bilirubin Test strip Ql (U)O rdered By: HEALTH ASSESSMENT on 06-18-2023 Bilirubin Ql (U) Negative Negative [facility] Blood erythrocytes count (nu mber/volume)Ordered By: HEALTH ASSESSMENT on 06-18-2023 RBC (Bld) [#/Vol] 4.59 10*6/uL 4.2-5.4 [facility] Blood hemoglobin measurement (mass/volume)Ordered By: HEALTH ASSESSMENT on 06-18-2023 Hemoglobin (Bld) [Mass/Vol] 12.9 g/dL 12.0-15.0 [facility] Blood platelet mean volumeOr dered By: HEALTH ASSESSMENT on 06-18-2023 Platelet mean volume (Bld) [Entitic vol] 10.6 fL 6.2-12.0 [facility] Determination of erythrocyte mean corpuscular volume (MCV)Ordered By: HEALTH ASSESSMENT on 06-18-2023 MCV (RBC) [Entitic vol] 87.6 fL 81-99 [facility] Direct bilirubinOrdered By: HEALTH ASSESSMENT on 06-18-2023 Bilirubin.direct [Mass/Vol] 0.09 mg/dL 0.00-0.30 [facility] Hematocrit Auto (Bld) [Volum e fraction]Ordered By: HEALTH ASSESSMENT on 06-18-2023 Hematocrit (Bld) [Volume fraction] 40.2 % 37-47 [facility] Ketones Test strip Ql (U)Ord ered By: HEALTH ASSESSMENT on 06-18-2023 Ketones Ql (U) Negative Negative [facility] - Chemistry and C hemistry - challengeOrdered By: HEALTH ASSESSMENT on 06-18-2023 ALP [Catalytic activity/Vol] 66 U/L 45-117 [facility] ALT [Catalytic activity/Vol] 21 U/L 13-56 [facility] Cholesterol.total/Dotty sterol in HDL [Mass ratio] 2.40 {ratio} [facility] CO2 [Moles/Vol] 25.0 mmol/L 21.0-32.0 [facility] Globulin (S) [Mass/Vol] 3.8 g/dL 2.2-4.2 [facility] Urea nitrogen/Creatinine [Mass ratio] 15.8 mg/mg 10-20 [facility] - Hematology and Cell countsOrdered By: HEALTH ASSESSMENT on 06-18-2023 Erythrocyte distribution width (RBC) [Entitic vol] 42.5 fL 35.1-43.9 [facility] Erythrocyte distribution width (RBC) [Ratio] 13.3 % 11.6-14.6 [facility] MCH (RBC) [Entitic mass] 28.1 pg 27.0-32.0 [facility] Nucleated RBC/100 WBC (Bld) [Ratio] 0 % 0-5 [facility] MCHC Auto (RBC) [Mass/Vol]Or dered By: HEALTH ASSESSMENT on 06-18-2023 MCHC (RBC) [Mass/Vol] 32.1 g/dL 32-36 [facility] Nitrite Test strip Ql (U)Ord ered By: HEALTH ASSESSMENT on 06-18-2023 Nitrite Ql (U) Negative Negative [facility] No Panel InformationOrdered By: HEALTH ASSESSMENT on 06-18-2023 Estimated GFR (MDRD) Amer 130 mL/min >60 [facility] Comment on above: GFR Calc Estimated GFR (MDRD) Non-Af Amer 107 mL/min >60 [facility] Comment on above: Non- GFR Calc Platelets bldOrdered By: ALEX [facility] ASSESSMENT on 06-18-2023 Platelets (Bld) [#/Vol] 314 10*3/uL 150-450 [facility] Protein Test strip Ql (U)Ord ered By: HEALTH ASSESSMENT on 06-18-2023 Protein Ql (U) Negative Negative [facility] Segmented neutrophils/100 WB C Auto (Bld)Ordered By: HEALTH ASSESSMENT on 06-18-2023 Segmented neutrophils/100 WBC (Bld) 48.3 % 47-70 [facility] Serum or plasma albumin raad urement (mass/volume)Ordered By: HEALTH ASSESSMENT on 06-18-2023 Albumin [Mass/Vol] 3.0 g/dL 3.2-5.0 [facility] Serum or plasma albumin/glob ulin mass ratioOrdered By: HEALTH ASSESSMENT on 06-18-2023 Albumin/Globulin [Mass ratio] 0.8 {ratio} 0.9-2.4 [facility] Serum or plasma calcium raad urement (mass/volume)Ordered By: HEALTH ASSESSMENT on 06-18-2023 Calcium [Mass/Vol] 8.6 mg/dL 8.5-10.1 [facility] Serum or plasma cholesterol in HDL measurement (mass/volume)Ordered By: HEALTH ASSESSMENT on 06-18-2023 Cholesterol in HDL [Mass/Vol] 56 mg/dL >40 [facility] Comment on above: The drugs N-Acetylcy steine and Metamizole may falsely depress this assay. Reference Range HDL <40 mg/dL Low HDL Cholesterol HDL >or= 60 mg/dL High HDL Cholesterol Serum or plasma cholesterol in VLDL measurement (mass/volume)Ordered By: HEALTH ASSESSMENT on 06-18-2023 Cholesterol in VLDL [Mass/Vol] 23 mg/dL 5-40 [facility] Serum or plasma creatinine m easurement (mass/volume)Ordered By: HEALTH ASSESSMENT on 06-18-2023 Creatinine [Mass/Vol] 0.70 mg/dL 0.55-1.02 [facility] Comment on above: The validity of the calculated GFR & GFRAA in patients over 70 years has not been determined. Clinical correlation is essential. Serum or plasma low density lipoprotein (LDL) cholesterol measurement (mass/volume)Ordered By: HEALTH ASSESSMENT on 06-18-2023 Cholesterol in LDL [Mass/Vol] 54 mg/dL 0-130 [facility] Serum or plasma urea nitroge n measurement (mass/volume)Ordered By: HEALTH ASSESSMENT on 06-18-2023 Urea nitrogen [Mass/Vol] 11 mg/dL 7-18 [facility] Serum or plasma uric acid me asurement (mass/volume)Ordered By: HEALTH ASSESSMENT on 06-18-2023 Urate [Mass/Vol] 4.6 mg/dL 2.6-6.0 [facility] Comment on above: The drugs N-Acetylcy steine and Metamizole may falsely depress this assay. Thin prep Papanicolaou smear with manual screeningOrdered By: HEALTH ASSESSMENT on 06-18-2023 Thin prep Papanicolaou smear with manual screening 10 U/L 15-37 [facility] Thin prep Papanicolaou smear with manual screening 6 5-15 [facility] Urine blood detectionOrdered By: HEALTH ASSESSMENT on 06-18-2023 RBC Ql (U) 10 /ul Negative [facility] Urine clarityOrdered By: HEA LT ASSESSMENT on 06-18-2023 Clarity (U) Clear Clear [facility] Urine color determinationOrd ered By: HEALTH ASSESSMENT on 06-18-2023 Color (U) Yellow Yellow [facility] Urine glucose detectionOrder ed By: HEALTH ASSESSMENT on 06-18-2023 Glucose Ql (U) Normal mg/dl Normal [facility] Urine leukocyte esterase det ection by dipstickOrdered By: HEALTH ASSESSMENT on 06-18-2023 Leukocyte esterase Test strip Ql (U) 500 /ul Negative [facility] Urine pHOrdered By: HEALTH A SSESSMENT on 06-18-2023 pH (U) 6.5 [pH] 5.0 - 8.0 [facility] Urine specific gravity measu rementOrdered By: HEALTH ASSESSMENT on 06-18-2023 Specific gravity (U) [Rel density] 1.015 1.002-1.03 0 [facility] Urobilinogen Auto test strip Ql (U)Ordered By: HEALTH ASSESSMENT on 06-18-2023 Urobilinogen Ql (U) Normal mg/dl Normal [facility] Absolute lymphocyte countOrd ered By: Dr. Mcgee on 01-27-2023 Lymphocytes Auto (Unsp spec) [#/Vol] 2.06 10*3/uL 0.83-4.51 [facility] Basophil percentageOrdered B y: Dr. Mcgee on 01-27-2023 Basophils/100 WBC (Bld) 0.5 % 0-1 [facility] Bilirubin [Mass/Vol] 0.30 mg/dL 0.20-1.00 [facility] Comment on above: For patients on eltr ombopag therapy, use of Dimension [place] TBIL is not recommended. Chloride [Moles/Vol] 107 mmol/L 98-107 [facility] Eosinophils/100 WBC (Bld) 1.4 % 0-5 [facility] Glucose [Mass/Vol] 99 mg/dL 74-106 [facility] Neutrophils (Bld) [#/Vol] 4.7 10*3/uL 2.0-7.7 [facility] Neutrophils/100 WBC (Bld) 64.1 % 47-70 [facility] Potassium [Moles/Vol] 3.8 mmol/L 3.5-5.1 [facility] Protein [Mass/Vol] 6.9 g/dL 6.4-8.2 [facility] Sodium [Moles/Vol] 136 mmol/L 136-145 [facility] WBC (Bld) [#/Vol] 7.3 10*3/uL 4.4-11.0 [facility] Blood erythrocytes count (nu mber/volume)Ordered By: Dr. Mcgee on 01-27-2023 RBC (Bld) [#/Vol] 4.52 10*6/uL 4.2-5.4 [facility] Blood hemoglobin measurement (mass/volume)Ordered By: Dr. Mcgee on 01-27-2023 Hemoglobin (Bld) [Mass/Vol] 12.8 g/dL 12.0-15.0 [facility] Blood lymphocytes/100 leukoc ytesOrdered By: Dr. Mcgee on 01-27-2023 Lymphocytes/100 WBC (Bld) 28.2 % 19-41 [facility] Blood monocytes/100 leukocyt esOrdered By: Dr. Mcgee on 01-27-2023 Monocytes/100 WBC (Bld) 5.5 % 0-10 [facility] Blood platelet mean volumeOr dered By: Dr. Mcgee on 01-27-2023 Platelet mean volume (Bld) [Entitic vol] 10.9 fL 6.2-12.0 [facility] Determination of erythrocyte mean corpuscular volume (MCV)Ordered By: Dr. Mcgee on 01-27-2023 MCV (RBC) [Entitic vol] 86.7 fL 81-99 [facility] Hematocrit Auto (Bld) [Volum e fraction]Ordered By: Dr. Mcgee on 01-27-2023 Hematocrit (Bld) [Volume fraction] 39.2 % 37-47 [facility] Laboratory - Chemistry and C hemistry - challengeOrdered By: Dr. Mcgee on 01-27-2023 ALP [Catalytic activity/Vol] 70 U/L 45-117 [facility] ALT [Catalytic activity/Vol] 24 U/L 13-56 [facility] CO2 [Moles/Vol] 25.0 mmol/L 21.0-32.0 [facility] Globulin (S) [Mass/Vol] 3.6 g/dL 2.2-4.2 [facility] Urea nitrogen/Creatinine [Mass ratio] 27.2 mg/mg 10-20 [facility] Laboratory - Hematology and Cell countsOrdered By: Dr. Mcgee on 01-27-2023 Erythrocyte distribution width (RBC) [Entitic vol] 42.1 fL 35.1-43.9 [facility] Erythrocyte distribution width (RBC) [Ratio] 13.5 % 11.6-14.6 [facility] Immature granulocytes/100 WBC (Bld) 0.300 % 0.0-0.9 [facility] Comment on above: IG% - Immature Granu locytes (promyelocytes, myelocytes and metamyelocytes) > 1% indicates that a LEFT SHIFT is Present. MCH (RBC) [Entitic mass] 28.3 pg 27.0-32.0 [facility] Nucleated RBC/100 WBC (Bld) [Ratio] 0 % 0-5 [facility] MCHC Auto (RBC) [Mass/Vol]Or dered By: Dr. Mcgee on 01-27-2023 MCHC (RBC) [Mass/Vol] 32.7 g/dL 32-36 [facility] No Panel InformationOrdered By: Dr. Mcgee on 01-27-2023 Estimated GFR (MDRD) Amer 158 mL/min >60 [facility] Comment on above: GFR Calc Estimated GFR (MDRD) Non-Af Amer 131 mL/min >60 [facility] Comment on above: Non- GFR Calc Thyroid Stimulating Hormone (TSH) 2.10 uIU/mL 0.358-3.74 [facility] Platelets bldOrdered By: Dr. Mcgee on 01-27-2023 Platelets (Bld) [#/Vol] 293 10*3/uL 150-450 [facility] Serum or plasma albumin raad urement (mass/volume)Ordered By: Dr. Mcgee on 01-27-2023 Albumin [Mass/Vol] 3.3 g/dL 3.2-5.0 [facility] Serum or plasma albumin/glob ulin mass ratioOrdered By: Dr. Mcgee on 01-27-2023 Albumin/Globulin [Mass ratio] 0.9 {ratio} 0.9-2.4 [facility] Serum or plasma calcium raad urement (mass/volume)Ordered By: Dr. Mcgee on 01-27-2023 Calcium [Mass/Vol] 8.6 mg/dL 8.5-10.1 [facility] Serum or plasma creatinine m easurement (mass/volume)Ordered By: Dr. Mcgee on 01-27-2023 Creatinine [Mass/Vol] 0.59 mg/dL 0.55-1.02 [facility] Comment on above: The validity of the calculated GFR & GFRAA in patients over 70 years has not been determined. Clinical correlation is essential. Serum or plasma thyroperoxid ase antibody assay (units/volume)Ordered By: Dr. Mcgee on 01-27-2023 TPO Ab Qn 10 [IU]/mL 0-34 [facility] Comment on above: Performed at: [facility] [employer] [id number] Director: Roque Soriano PhD, Phone: [phone] Serum or plasma urea nitroge n measurement (mass/volume)Ordered By: Dr. Mcgee on 01-27-2023 Urea nitrogen [Mass/Vol] 16 mg/dL 7-18 [facility] Thin prep Papanicolaou smear with manual screeningOrdered By: Dr. Mcgee on 01-27-2023 Thin prep Papanicolaou smear with manual screening 13 U/L 15-37 [facility] Thin prep Papanicolaou smear with manual screening 4 5-15 [facility] Influenza virus A and B and SARS-CoV-2 (COVID-19) Ag panel - Upper respiratory specimOrdered By: Dr. Alves on 09-30-2022 SARS-CoV-2 & FLU Antigen (Rapid) Influenzae A [facility] RSV Ag EIAOrdered By: Dr. Sun martínez on 09-30-2022 RSV Ag Immune stain Ql (Tiss) [facility] Serum or plasma progesterone measurement (mass/volume)Ordered By: Cari Holman on 09-23-2022 Progesterone [Mass/Vol] 2.87 ng/mL See Comment [facility] Comment on above: Progesterone Referen ce Table: UNITS Female: Follicular 0.15 - 1.40 ng/mL Luteal 3.34 - 25.56 ng/mL Mid-luteal 4.44 - 28.03 ng/mL Postmenopausal 0.0 - 0.73 ng/mL : 1st Trimester 11.22 - 90.00 ng/mL 2nd Trimester 25.55 - 89.40 ng/mL 3rd Trimester 48.40 -422.50 ng/mL No Panel Informationon 08-25 POC Bacterial Vaginitis (Rapid) Negative [facility] Work Phone: Serum or plasma prolactin me asurement (mass/volume)on 08-25-2022 Prolactin [Mass/Vol] 15.5 ng/mL [facility] Work Phone: Comment on above: NORMAL REFERENCE RAN GES FEMALE NON- 2.2 - 30.3 ng/mL 8.1 - 347.6 ng/mL POST-MENOPAUSAL 0.7 - 31.5 ng/mL MALE 2.5 - 17.4 ng/mL No Panel Informationon 07-30 Dehydroepiandrosterone Sulfate 222.0 ug/dL 84.8-378.0 [facility] Work Phone: Miscellaneous Test See comment [facility] Work Phone: Comment on above: Sent directly to [facility] per ordering physician. Serum or plasma prolactin me asurement (mass/volume)on 07-30-2022 Prolactin [Mass/Vol] 43.7 ng/mL [facility] Work Phone: Comment on above: NORMAL REFERENCE RAN GES FEMALE NON- 2.2 - 30.3 ng/mL 8.1 - 347.6 ng/mL POST-MENOPAUSAL 0.7 - 31.5 ng/mL MALE 2.5 - 17.4 ng/mL Serum or plasma testosterone free measurement (mass/volume)on 07-30-2022 Testosterone Free [Mass/Vol] 1.2 pg/mL 0.0-4.2 [facility] Work Phone: Comment on above: Performed at: [facility] you [address] [id number] Director: Roque Soriano PhD, Phone: [phone] at: - [employer] [id number] Director: Stefano Lopez MD, Phone: [phone] Absolute lymphocyte counton 07-08-2022 Lymphocytes Auto (Unsp spec) [#/Vol] 2.12 10*3/uL 0.83-4.51 [facility] Work Phone: Absolute reticulocyte counto n 07-08-2022 Reticulocytes (Bld) [#/Vol] 0.00 10*3/uL 0-5 [facility] Work Phone: [phone] Basophil percentageon 2021 Basophil percentage 3.5 mg/dL 2.5-4.9 [facility] Work Phone: [phone] Bilirubin [Mass/Vol] 0.40 mg/dL 0.20-1.00 [facility] Work Phone: Comment on above: For patients on eltr ombopag therapy, use of Dimension [place] TBIL is not recommended. Chloride [Moles/Vol] 105 mmol/L 98-107 [facility] Work Phone: [phone] Cholesterol [Mass/Vol] 143 mg/dL <200 [facility] Work Phone: Comment on above: <200 mg/dL Desirable 200-240 mg/dL Borderline >240 mg/dL High Risk Glucose [Mass/Vol] 95 mg/dL 74-106 [facility] Work Phone: [phone] Neutrophils (Bld) [#/Vol] 3.0 10*3/uL 2.0-7.7 [facility] Work Phone: [phone] Potassium [Moles/Vol] 3.6 mmol/L 3.5-5.1 [facility] Work Phone: [phone] Protein [Mass/Vol] 7.1 g/dL 6.4-8.2 [facility] Work Phone: [phone] Sodium [Moles/Vol] 139 mmol/L 136-145 [facility] Work Phone: [phone] Triglyceride [Mass/Vol] 69 mg/dL <199 [facility] Work Phone: Comment on above: The drugs N-Acetylcy steine and Metamizole may falsely depress this assay.Serum Triglycerides Reference Interval Normal <150 mg/dL Borderline high 150 - 199 mg/dL High 200 - 499 mg/dL Very High > or = 500 mg/dL WBC (Bld) [#/Vol] 5.6 10*3/uL 4.4-11.0 [facility] Work Phone: Bilirubin Test strip Ql (U)o n 07-08-2022 Bilirubin Ql (U) Negative Negative [facility] Work Phone: Blood erythrocytes count (nu mber/volume)on 07-08-2022 RBC (Bld) [#/Vol] 4.73 10*6/uL 4.2-5.4 [facility] Work Phone: Blood hemoglobin measurement (mass/volume)on 07-08-2022 Hemoglobin (Bld) [Mass/Vol] 13.2 g/dL 12.0-15.0 [facility] Work Phone: Blood platelet mean volumeon 07-08-2022 Platelet mean volume (Bld) [Entitic vol] 11.0 fL 6.2-12.0 [facility] Work Phone: Determination of erythrocyte mean corpuscular volume (MCV)on 07-08-2022 MCV (RBC) [Entitic vol] 86.0 fL 81-99 [facility] Work Phone: Direct bilirubinon 2 Bilirubin.direct [Mass/Vol] 0.10 mg/dL 0.00-0.30 [facility] Work Phone: Hematocrit Auto (Bld) [Volum e fraction]on 07-08-2022 Hematocrit (Bld) [Volume fraction] 40.7 % 37-47 [facility] Work Phone: Iron measurement (mass/mass) on 07-08-2022 Iron (Unsp spec) [Mass/Mass] 65 ug/dL 50-170 [facility] Work Phone: Ketones Test strip Ql (U)on 07-08-2022 Ketones Ql (U) 5 mg/dl Negative [facility] Work Phone: Laboratory - Chemistry and C hemistry - challengeon 07-08-2022 Cobalamin (Vitamin B12) [Mass/Vol] 725 pg/mL 211-911 [facility] Work Phone: Free T4 [Mass/Vol] 1.03 ng/dL 0.76-1.46 [facility] Work Phone: ALP [Catalytic activity/Vol] 73 U/L 45-117 [facility] Work Phone: ALT [Catalytic activity/Vol] 23 U/L 13-56 [facility] Work Phone: Cholesterol.total/Dotty sterol in HDL [Mass ratio] 2.60 {ratio} [facility] Work Phone: CO2 [Moles/Vol] 27.0 mmol/L 21.0-32.0 [facility] Work Phone: Globulin (S) [Mass/Vol] 3.7 g/dL 2.2-4.2 [facility] Work Phone: [phone] Urea nitrogen/Creatinine [Mass ratio] 25.0 mg/mg 10-20 [facility] Work Phone: [phone] Laboratory - Hematology and Cell countson 07-08-2022 Erythrocyte distribution width (RBC) [Entitic vol] 41.9 fL 35.1-43.9 [facility] Work Phone: Erythrocyte distribution width (RBC) [Ratio] 13.3 % 11.6-14.6 [facility] Work Phone: MCH (RBC) [Entitic mass] 27.9 pg 27.0-32.0 [facility] Work Phone: [phone] Nucleated RBC/100 WBC (Bld) [Ratio] 0 % 0-5 [facility] Work Phone: MCHC Auto (RBC) [Mass/Vol]on 07-08-2022 MCHC (RBC) [Mass/Vol] 32.4 g/dL 32-36 [facility] Work Phone: Nitrite Test strip Ql (U)on 07-08-2022 Nitrite Ql (U) Negative Negative [facility] Work Phone: [phone] No Panel Informationon 07-08 Thyroid Stimulating Hormone (TSH) 2.03 uIU/mL 0.358-3.74 [facility] Work Phone: Vitamin D 25-Hydroxy 27.3 ng/mL [facility] Work Phone: Comment on above: Vitamin D 25(OH) Sta tus Range Deficiency <20 ng/mL (50nmol/L) Insufficiency 20 - 30 ng/mL (50 - 75 nmol/L) Sufficiency 30 - 100 ng/mL (75 - 250 nmol/L) Toxicity >100 ng/mL (>250 nmol/L) Estimated GFR (MDRD) Amer 155 mL/min >60 [facility] Work Phone: Comment on above: GFR Calc Estimated GFR (MDRD) Non-Af Amer 128 mL/min >60 [facility] Work Phone: Comment on above: Non- GFR Calc Platelets bldon 07-08-2022 Platelets (Bld) [#/Vol] 293 10*3/uL 150-450 [facility] Work Phone: Protein Test strip Ql (U)on 07-08-2022 Protein Ql (U) 15 mg/dl Negative [facility] Work Phone: Segmented neutrophils/100 WB C Auto (Bld)on 07-08-2022 Segmented neutrophils/100 WBC (Bld) 52.5 % 47-70 [facility] Work Phone: Serum or plasma albumin raad urement (mass/volume)on 07-08-2022 Albumin [Mass/Vol] 3.4 g/dL 3.2-5.0 [facility] Work Phone: Serum or plasma albumin/glob ulin mass ratioon 07-08-2022 Albumin/Globulin [Mass ratio] 0.9 {ratio} 0.9-2.4 [facility] Work Phone: Serum or plasma calcium raad urement (mass/volume)on 07-08-2022 Calcium [Mass/Vol] 8.8 mg/dL 8.5-10.1 [facility] Work Phone: Serum or plasma cholesterol in HDL measurement (mass/volume)on 07-08-2022 Cholesterol in HDL [Mass/Vol] 55 mg/dL >40 [facility] Work Phone: Comment on above: The drugs N-Acetylcy steine and Metamizole may falsely depress this assay. Reference Range HDL <40 mg/dL Low HDL Cholesterol HDL >or= 60 mg/dL High HDL Cholesterol Serum or plasma cholesterol in VLDL measurement (mass/volume)on 07-08-2022 Cholesterol in VLDL [Mass/Vol] 14 mg/dL 5-40 [facility] Work Phone: Serum or plasma cortisol thierno surement (mass/volume)on 07-08-2022 Cortisol [Mass/Vol] 17.50 ug/dL 3.44-22.45 [facility] Work Phone: Comment on above: Adult (AM) 5.27 - 22 .45 ug/dL Adult (PM) 3.44 - 16.76 ug/dLPlease note revised CORTISOL reference range effective 2019. Serum or plasma creatinine m easurement (mass/volume)on 07-08-2022 Creatinine [Mass/Vol] 0.60 mg/dL 0.55-1.02 [facility] Work Phone: Comment on above: The validity of the calculated GFR & GFRAA in patients over 70 years has not been determined. Clinical correlation is essential. Serum or plasma ferritin thierno surement (mass/volume)on 07-08-2022 Ferritin [Mass/Vol] 41 ng/mL 8-252 [facility] Work Phone: Serum or plasma low density lipoprotein (LDL) cholesterol measurement (mass/volume)on 07-08-2022 Cholesterol in LDL [Mass/Vol] 74 mg/dL 0-130 [facility] Work Phone: Serum or plasma urea nitroge n measurement (mass/volume)on 07-08-2022 Urea nitrogen [Mass/Vol] 15 mg/dL 7-18 [facility] Work Phone: Serum or plasma uric acid me asurement (mass/volume)on 07-08-2022 Urate [Mass/Vol] 4.9 mg/dL 2.6-6.0 [facility] Work Phone: Comment on above: The drugs N-Acetylcy steine and Metamizole may falsely depress this assay. Thin prep Papanicolaou smear with manual screeningon 07-08-2022 Thin prep Papanicolaou smear with manual screening 13 U/L 15-37 [facility] Work Phone: Thin prep Papanicolaou smear with manual screening 7 5-15 [facility] Work Phone: Thin prep Papanicolaou smear with manual screening 188 U/L 84-246 [facility] Work Phone: Urine blood detectionon 06-26 RBC Ql (U) 10 /ul Negative [facility] Work Phone: Urine clarityon 07-08-2022 Clarity (U) Sl. Cloudy Clear [facility] Work Phone: Urine color determinationon 07-08-2022 Color (U) Yellow Yellow [facility] Work Phone: Urine glucose detectionon Glucose Ql (U) Normal mg/dl Normal [facility] Work Phone: Urine leukocyte esterase det ection by dipstickon 07-08-2022 Leukocyte esterase Test strip Ql (U) 25 /ul Negative [facility] Work Phone: Urine pHon 07-08-2022 pH (U) 6.0 [pH] 5.0 - 8.0 [facility] Work Phone: [phone] Urine specific gravity measu rementon 07-08-2022 Specific gravity (U) [Rel density] 1.025 1.002-1.03 0 [facility] Work Phone: Urobilinogen Auto test strip Ql (U)on 07-08-2022 Urobilinogen Ql (U) Normal mg/dl Normal [facility] Work Phone: Serum or plasma choriogonado tropin detectionon 04-16-2022 HCG ( test) Ql < 1 mIU/mL <4 [facility] Work Phone: Comment on above: hCG levels with Gest ational AgeGestational Age hCG mIU/mL (IU/L)0.2 - 1 week 5 - 501-2 weeks 50 - 5002-3 weeks 100 - 21737-9 weeks 500 - 760168-8 weeks 1000 - 866117-3 weeks 51745 - 100,0006-8 weeks 95352 - 200,0002-3 months 66004 - 100,000 Basophil percentageon 2021 Chloride [Moles/Vol] 106 mmol/L 98-107 [facility] Work Phone: Glucose [Mass/Vol] 113 mg/dL 74-106 [facility] Work Phone: Comment on above: Fasting Glucose resu lt from 100 to 125 mg/dL suggests IMPAIRED HOMEOSTASIS per A.D.A. criteria. Potassium [Moles/Vol] 3.4 mmol/L 3.5-5.1 [facility] Work Phone: Sodium [Moles/Vol] 139 mmol/L 136-145 [facility] Work Phone: WBC (Bld) [#/Vol] 8.4 10*3/uL 4.4-11.0 [facility] Work Phone: Blood erythrocytes count (nu mber/volume)on 03-06-2022 RBC (Bld) [#/Vol] 4.37 10*6/uL 4.2-5.4 [facility] Work Phone: Blood hemoglobin measurement (mass/volume)on 03-06-2022 Hemoglobin (Bld) [Mass/Vol] 12.4 g/dL 12.0-15.0 [facility] Work Phone: Blood platelet mean volumeon 03-06-2022 Platelet mean volume (Bld) [Entitic vol] 11.0 fL 6.2-12.0 [facility] Work Phone: Determination of erythrocyte mean corpuscular volume (MCV)on 03-06-2022 MCV (RBC) [Entitic vol] 85.6 fL 81-99 [facility] Work Phone: Erythrocyte sedimentation ra rosanne 03-06-2022 ESR (Bld) [Velocity] 26 mm/h 0-30 [facility] Work Phone: Hematocrit Auto (Bld) [Volum e fraction]on 03-06-2022 Hematocrit (Bld) [Volume fraction] 37.4 % 37-47 [facility] Work Phone: Laboratory - Chemistry and C hemistry - challengeon 03-06-2022 CO2 [Moles/Vol] 25.0 mmol/L 21.0-32.0 [facility] Work Phone: Magnesium [Mass/Vol] 2.1 mg/dL 1.6-2.6 [facility] Work Phone: Urea nitrogen/Creatinine [Mass ratio] 20.1 mg/mg 10-20 [facility] Work Phone: Laboratory - Hematology and Cell countson 03-06-2022 Erythrocyte distribution width (RBC) [Entitic vol] 41.5 fL 35.1-43.9 [facility] Work Phone: Erythrocyte distribution width (RBC) [Ratio] 13.3 % 11.6-14.6 [facility] Work Phone: MCH (RBC) [Entitic mass] 28.4 pg 27.0-32.0 [facility] Work Phone: MCHC Auto (RBC) [Mass/Vol]on 03-06-2022 MCHC (RBC) [Mass/Vol] 33.2 g/dL 32-36 [facility] Work Phone: No Panel Informationon 03-06 Estimated GFR (MDRD) Amer 143 mL/min >60 [facility] Work Phone: Comment on above: GFR Calc Estimated GFR (MDRD) Non-Af Amer 118 mL/min >60 [facility] Work Phone: Comment on above: Non- GFR Calc Platelets bldon 03-06-2022 Platelets (Bld) [#/Vol] 342 10*3/uL 150-450 [facility] Work Phone: Serum or plasma calcium raad urement (mass/volume)on 03-06-2022 Calcium [Mass/Vol] 8.9 mg/dL 8.5-10.[address] [facility] [address] [facility] Work Phone: Serum or plasma creatinine m easurement (mass/volume)on 03-06-2022 Creatinine [Mass/Vol] 0.65 mg/dL 0.55-1.02 [facility] Work Phone: Comment on above: The validity of the calculated GFR & GFRAA in patients over 70 years has not been determined. Clinical correlation is essential. Serum or plasma urea nitroge n measurement (mass/volume)on 03-06-2022 Urea nitrogen [Mass/Vol] 13 mg/dL 7-18 [facility] Work Phone: Thin prep Papanicolaou smear with manual screeningon 03-06-2022 Thin prep Papanicolaou smear with manual screening 8 5-15 [facility] Work Phone: No Panel Informationon 11-25 D-Dimer Quantitative (PE/DVT) 0.55 FEU/ug/m 0.27-0.49 [facility] Work Phone: Comment on above: D-Dimer ELEVATED (>0 .49): Additional studies and clinicalassessments are indicated to conclude diagnosis of:Deep Vein Thrombosis (DVT) or Pulmonary Embolism (PE)RESULTS CALLED TO Emory JOHNSON RN [facility] 11/25/21 1251 Darlene Lundy.REPORT READ BACK BY SAME. Absolute lymphocyte counton 11-21-2021 Lymphocytes Auto (Unsp spec) [#/Vol] 2.70 10*3/uL 0.83-4.51 [facility] Work Phone: Basophil percentageon 2021 Basophils/100 WBC (Bld) 0.2 % 0-1 [facility] Work Phone: Chloride [Moles/Vol] 105 mmol/L 98-107 [facility] Work Phone: Eosinophils/100 WBC (Bld) 0.9 % 0-5 [facility] Work Phone: Glucose [Mass/Vol] 106 mg/dL 74-106 [facility] Work Phone: Comment on above: Fasting Glucose resu lt from 100 to 125 mg/dL suggests IMPAIRED HOMEOSTASIS per A.D.A. criteria. Neutrophils (Bld) [#/Vol] 5.2 10*3/uL 2.0-7.7 [facility] Work Phone: Neutrophils/100 WBC (Bld) 61.4 % 47-70 [facility] Work Phone: Potassium [Moles/Vol] 3.7 mmol/L 3.5-5.1 [facility] Work Phone: Sodium [Moles/Vol] 137 mmol/L 136-145 [facility] Work Phone: WBC (Bld) [#/Vol] 8.5 10*3/uL 4.4-11.0 [facility] Work Phone: Beta hCG serum qualon 2021 Beta HCG ( test) Ql Negative [facility] Work Phone: Blood erythrocytes count (nu mber/volume)on 11-21-2021 RBC (Bld) [#/Vol] 4.72 10*6/uL 4.2-5.4 [facility] Work Phone: Blood hemoglobin measurement (mass/volume)on 11-21-2021 Hemoglobin (Bld) [Mass/Vol] 13.2 g/dL 12.0-15.0 [facility] Work Phone: Blood lymphocytes/100 leukoc yteson 11-21-2021 Lymphocytes/100 WBC (Bld) 31.9 % 19-41 [facility] Work Phone: Blood monocytes/100 leukocyt eson 11-21-2021 Monocytes/100 WBC (Bld) 5.2 % 0-10 [facility] Work Phone: Blood platelet mean volumeon 11-21-2021 Platelet mean volume (Bld) [Entitic vol] 10.8 fL 6.2-12.0 [facility] Work Phone: [phone] Determination of erythrocyte mean corpuscular volume (MCV)on 11-21-2021 MCV (RBC) [Entitic vol] 84.7 fL 81-99 [facility] Work Phone: Hematocrit Auto (Bld) [Volum e fraction]on 11-21-2021 Hematocrit (Bld) [Volume fraction] 40.0 % 37-47 [facility] Work Phone: Laboratory - Chemistry and C hemistry - challengeon 11-21-2021 CO2 [Moles/Vol] 27.0 mmol/L 21.0-32.0 [facility] Work Phone: [phone] Urea nitrogen/Creatinine [Mass ratio] 16.1 mg/mg 10-20 [facility] Work Phone: [phone] Laboratory - Hematology and Cell countson 11-21-2021 Erythrocyte distribution width (RBC) [Entitic vol] 38.8 fL 35.1-43.9 [facility] Work Phone: Erythrocyte distribution width (RBC) [Ratio] 12.6 % 11.6-14.6 [facility] Work Phone: Immature granulocytes/100 WBC (Bld) 0.400 % 0.0-0.9 [facility] Work Phone: [phone] Comment on above: IG% - Immature Granu locytes (promyelocytes, myelocytes and metamyelocytes) > 1% indicates that a LEFT SHIFT is Present. MCH (RBC) [Entitic mass] 28.0 pg 27.0-32.0 [facility] Work Phone: Nucleated RBC/100 WBC (Bld) [Ratio] 0 % 0-5 [facility] Work Phone: MCHC Auto (RBC) [Mass/Vol]on 11-21-2021 MCHC (RBC) [Mass/Vol] 33.0 g/dL 32-36 [facility]: No Panel Informationon 11-21 D-Dimer Quantitative (PE/DVT) 0.64 FEU/ug/m 0.27-0.49 [facility] Work Phone: Comment on above: CRITICAL VALUE VERIF IED. CALLED TO WALT MI11/21/21 0809 Sejal Rogel.RESULTS READ BACK BY SAME . D-Dimer ELEVATED (>0.49): Additional studies and clinicalassessments are indicated to conclude diagnosis of:Deep Vein Thrombosis (DVT) or Pulmonary Embolism (PE) Estimated Creatinine Clearance Calc 100.03 ml/min [facility] Work Phone: Estimated GFR (MDRD) Amer 134 mL/min >60 [facility] Work Phone: Comment on above: GFR Calc Estimated GFR (MDRD) Non-Af Amer 110 mL/min >60 [facility] Work Phone: Comment on above: Non- GFR Calc Troponin I High Sensitivity < 3 pg/mL 3.0-54.0 [facility] Work Phone: Comment on above: Please Note: New Mansi t Units and Gender Specific Reference Ranges. For more information see Policy Stat Procedure [place] High Sensitivity Troponin (TNIH) and attachments. Platelets bldon 11-21-2021 Platelets (Bld) [#/Vol] 331 10*3/uL 150-450 [facility] Work Phone: Serum or plasma calcium raad urement (mass/volume)on 11-21-2021 Calcium [Mass/Vol] 8.7 mg/dL 8.5-10.[address] [facility] Work Phone: Serum or plasma creatinine m easurement (mass/volume)on 11-21-2021 Creatinine [Mass/Vol] 0.68 mg/dL 0.55-1.02 [facility] Work Phone: Comment on above: The validity of the calculated GFR & GFRAA in patients over 70 years has not been determined. Clinical correlation is essential. Serum or plasma urea nitroge n measurement (mass/volume)on 11-21-2021 Urea nitrogen [Mass/Vol] 11 mg/dL 7-18 [facility] Work Phone: Thin prep Papanicolaou smear with manual screeningon 11-21-2021 Thin prep Papanicolaou smear with manual screening 5 5-15 [facility] Work Phone: Laboratory - Microbiology an d Antimicrobial susceptibilityon 11-12-2021 SARS-CoV-2 (COVID-19) RNA JAMARCUS+probe Ql (Unsp spec) Detected [facility] Work Phone: Laboratory - Microbiology an d Antimicrobial susceptibilityon 11-11-2021 SARS-CoV-2 (COVID-19) RNA JAMARCUS+probe Ql (Unsp spec) Not detected [facility] Work Phone: Gram stain for investigation of transfusion reaction Microscopic observation Gram stain Nom (Unsp spec) [facility] Work Phone: Influenza virus A and B and SARS-CoV-2 (COVID-19) Ag panel - Upper respiratory specim SARS-CoV-2 & FLU Antigen (Rapid) Influenzae A [facility] Work Phone: RSV Ag EIA RSV Ag Immune stain Ql (Tiss) [facility] Work Phone: Thin prep Papanicolaou smear with manual screening Cytopathology procedure, preparation of smear, genital source Neisseria or beta-hemolytic Streptococcus isolated. [facility] Work Phone: Thin prep Papanicolaou smear with manual screening Neisseria or beta-hemolytic Streptococcus isolated. [facility] Work Phone: Vital Signs Date Time Vital Sign Value Performing Clinician Faci lity 05-12-2025 06:47-0400 Body mass index (BMI) [Ratio] 42.7 kg/m2 Lala TRIPLETT Work Phone: [facility] 05-12-2025 06:47-0400 Body weight 109.31 kg Lala TRIPLETT Work Phone: [facility] 05-12-2025 06:47-0400 Diastolic blood pressure 84 mm[Hg] Lala TRIPLETT Work Phone: [facility] 05-12-2025 06:47-0400 Heart rate 80 /min Lala Ybarra INPATIENT CARE MANAGER RN-C Work Phone: [facility] 05-12-2025 06:47-0400 Respiratory rate 18 /min Lala Ybarra INPATIENT CARE MANAGER RN-C Work Phone: [facility] 05-12-2025 06:47-0400 SaO2% (BldA) [Mass fraction] 100 % Lala Ybarra INPATIENT CARE MANAGER RN-C Work Phone: [facility] 05-12-2025 06:47-0400 Systolic blood pressure 125 mm[Hg] Lala Ybarra INPATIENT CARE MANAGER RN-C Work Phone: [facility] 03-15-2025 09:26-0400 Body weight 115.21 kg Scottie Chance MD Work Phone: [facility] 03-15-2025 09:26-0400 Diastolic blood pressure 86 mm[Hg] Scottie Chance MD Work Phone: [facility] 03-15-2025 09:26-0400 Systolic blood pressure 136 mm[Hg] Scottie Chance MD Work Phone: [facility] 03-08-2025 08:44-0400 Body weight 115.67 kg Scottie Chance MD Work Phone: [facility] 03-08-2025 08:44-0400 Diastolic blood pressure 82 mm[Hg] Scottie Chance MD Work Phone: [facility] 03-08-2025 08:44-0400 Systolic blood pressure 122 mm[Hg] Scottie Chance MD Work Phone: [facility] 01-27-2025 15:33-0400 Body height 160.02 cm Lala Ybarra INPATIENT CARE MANAGER RN-C Work Phone: [facility] 01-27-2025 15:33-0400 Body mass index (BMI) [Ratio] 45 kg/m2 Lala Ybarra INPATIENT CARE MANAGER RN-C Work Phone: [facility] 01-27-2025 15:33-0400 Body weight 115.32 kg Lala Ybarra INPATIENT CARE MANAGER RN-C Work Phone: 7(590)898-227112 [place] [address] 01-27-2025 15:33-0400 Diastolic blood pressure 76 mm[Hg] Lala Ybarra INPATIENT CARE MANAGER RN-C Work Phone: 6(301)216-479412 [place] [address] 01-27-2025 15:33-0400 Systolic blood pressure 138 mm[Hg] Lala Ybarra INPATIENT CARE MANAGER RN-C Work Phone: 9(300)057-050112 [place] [address] 01-24-2025 13:37-0400 Body mass index (BMI) [Ratio] 44.9 kg/m2 Lala Ybarra INPATIENT CARE MANAGER RN-C Work Phone: 8(422)955-989012 [place] [address] 01-24-2025 13:37-0400 Body weight 115.21 kg Lala Ybarra INPATIENT CARE MANAGER RN-C Work Phone: 5(318)143-153312 [place] [address] 01-24-2025 13:37-0400 Diastolic blood pressure 76 mm[Hg] Lala Ybarra INPATIENT CARE MANAGER RN-C Work Phone: 4(026)021-262212 [place] [address] 01-24-2025 13:37-0400 Systolic blood pressure 122 mm[Hg] Lala Ybarra INPATIENT CARE MANAGER RN-C Work Phone: 8(363)405-272012 [place] [address] 12-07-2024 09:08-0500 Body temperature 98.5 [degF] Lala Ybarra INPATIENT CARE MANAGER RN-C Work Phone: 9(974)315-692212 [place] [address] 12-07-2024 09:08-0500 Diastolic blood pressure 80 mm[Hg] Lala Ybarra INPATIENT CARE MANAGER RN-C Work Phone: 3(949)893-416712 [place] [address] 12-07-2024 09:08-0500 Heart rate 88 /min Lala Ybarra INPATIENT CARE MANAGER RN-C Work Phone: 1(180)760-537512 [place] [address] 12-07-2024 09:08-0500 Respiratory rate 16 /min Lala Ybarra INPATIENT CARE MANAGER RN-C Work Phone: 2(300)404-913712 [place] [address] 12-07-2024 09:08-0500 SaO2% (BldA) [Mass fraction] 99 % Lala Ybarra INPATIENT CARE MANAGER RN-C Work Phone: 7(548)034-567912 [place] [address] 12-07-2024 09:08-0500 Systolic blood pressure 126 mm[Hg] Lala Ybarra INPATIENT CARE MANAGER RN-C Work Phone: [facility] 11-02-2024 07:03-0500 Body temperature 98.1 [degF] Lala Ybarra INPATIENT CARE MANAGER RN-C Work Phone: [facility] 11-02-2024 07:03-0500 Diastolic blood pressure 72 mm[Hg] Lala Ybarra INPATIENT CARE MANAGER RN-C Work Phone: 4(512)585-011755 [place] [address] 11-02-2024 07:03-0500 Heart rate 94 /min Lala Ybarra INPATIENT CARE MANAGER RN-C Work Phone: 3(889)918-124755 [place] [address] 11-02-2024 07:03-0500 Respiratory rate 16 /min Lala Ybarra INPATIENT CARE MANAGER RN-C Work Phone: 9(781)385-829355 [place] [address] 11-02-2024 07:03-0500 SaO2% (BldA) [Mass fraction] 98 % Lala Ybarra INPATIENT CARE MANAGER RN-C Work Phone: 1(478)222-143455 [place] [address] 11-02-2024 07:03-0500 Systolic blood pressure 120 mm[Hg] Lala Ybarra INPATIENT CARE MANAGER RN-C Work Phone: 7(739)752-084355 [place] [address] 01-29-2024 12:27-0400 Diastolic blood pressure 80 mm[Hg] Dr. Francisco Stock Work Phone: [facility] 01-29-2024 12:27-0400 Systolic blood pressure 118 mm[Hg] Dr. Francisco Stock Work Phone: [facility] 01-29-2024 12:17-0400 Body height 157.[address] Francisco Stock Work Phone: [facility] 01-29-2024 12:17-0400 Body mass index (BMI) [Ratio] 38.2 kg/m2 Dr. Francisco Stock Work Phone: [facility] 01-29-2024 12:17-0400 Body weight 94.[address] Francisco Stock Work Phone: [facility] 01-29-2024 12:17-0400 Heart rate 86 /min Dr. Francisco Stock Work Phone: [facility] 12-29-2023 11:48-0500 Body mass index (BMI) [Ratio] 37.5 kg/m2 Dr. Francisco Stock Work Phone: [facility] 12-29-2023 11:48-0500 Body weight 92.[address] Francisco Stock Work Phone: [facility] 12-29-2023 11:48-0500 Diastolic blood pressure 80 mm[Hg] Dr. Francisco Stock Work Phone: [facility] 12-29-2023 11:48-0500 Heart rate 88 /min Dr. Francisco Stock Work Phone: [facility] 12-29-2023 11:48-0500 Systolic blood pressure 128 mm[Hg] Dr. Francisco Stock Work Phone: [facility] 12-04-2023 11:04-0500 Body height 157.[address] Panda Stock Work Phone: [facility] 12-04-2023 11:04-0500 Body mass index (BMI) [Ratio] 38.2 kg/m2 Dr. Panda Stock Work Phone: [facility] 12-04-2023 11:04-0500 Body weight 94.[address] Panda Stock Work Phone: [facility] 12-04-2023 11:04-0500 Diastolic blood pressure 78 mm[Hg] Dr. Panda Stock Work Phone: [facility] 12-04-2023 11:04-0500 Heart rate 82 /min Dr. Panda Stock Work Phone: [facility] 12-04-2023 11:04-0500 Systolic blood pressure 121 mm[Hg] Dr. Panda Stock Work Phone: [facility] 11-02-2023 13:51-0500 Body mass index (BMI) [Ratio] 39.2 kg/m2 Dr. Panda Stock Work Phone: 5(999)015-677875 [place] [address] 11-02-2023 13:51-0500 Body weight 97.[address] Panda Stock Work Phone: 6(901)171-386081 [address] 11-02-2023 13:51-0500 Diastolic blood pressure 80 mm[Hg] Dr. Panda Stock Work Phone: 6(175)729-719081 [address] 11-02-2023 13:51-0500 Heart rate 90 /min Dr. Panda Stock Work Phone: 9(886)342-607381 [address] 11-02-2023 13:51-0500 Respiratory rate 16 /min Dr. Panda Stock Work Phone: 9(353)492-400036 [place] [address] 11-02-2023 13:51-0500 SaO2% (BldA) [Mass fraction] 92 % Dr. Panda Stock Work Phone: 1(868)087-712281 [address] 11-02-2023 13:51-0500 Systolic blood pressure 116 mm[Hg] Dr. Panda Stock Work Phone: 7(718)603-621781 [address] 10-05-2023 14:01-0500 Body mass index (BMI) [Ratio] 38.8 kg/m2 Dr. Panda Stock Work Phone: 3(264)155-146081 [address] 10-05-2023 14:01-0500 Body weight 96.[address] Panda Stock Work Phone: 3(349)535-479875 [place] [address] 10-05-2023 14:01-0500 Diastolic blood pressure 68 mm[Hg] Dr. Panda Stock Work Phone: 7(531)570-052281 [address] 10-05-2023 14:01-0500 Systolic blood pressure 118 mm[Hg] Dr. Panda Stock Work Phone: 1(186)651-889175 [place] [address] 09-10-2023 15:28-0500 Body height 157.[address] Panda Stock Work Phone: 9(495)742-977381 [address] 09-10-2023 15:21-0500 Body mass index (BMI) [Ratio] 39.2 kg/m2 Dr. Panda Stock Work Phone: [facility] 09-10-2023 15:21-0500 Body weight 97.[address] Panda Stock Work Phone: [facility] 09-10-2023 15:21-0500 Diastolic blood pressure 78 mm[Hg] Dr. Panda Stock Work Phone: [facility] 09-10-2023 15:21-0500 Systolic blood pressure 98 mm[Hg] Dr. Panda Stock Work Phone: [facility] 08-13-2023 14:25-0400 Body temperature 97.2 [degF] Dr. Panda Stock Work Phone: 3(015)094-037975 [place] [address] 08-13-2023 14:25-0400 Diastolic blood pressure 82 mm[Hg] Dr. Panda Stock Work Phone: [facility] 08-13-2023 14:25-0400 Heart rate 102 /min Dr. Panda Stock Work Phone: [facility] 08-13-2023 14:25-0400 Respiratory rate 17 /min Dr. Panda Stock Work Phone: [facility] 08-13-2023 14:25-0400 SaO2% (BldA) [Mass fraction] 95 % Dr. Panda Stock Work Phone: [facility] 08-13-2023 14:25-0400 Systolic blood pressure 127 mm[Hg] Dr. Panda Stock Work Phone: [facility] 08-13-2023 13:44-0400 Body mass index (BMI) [Ratio] 39.3 kg/m2 Dr. Panda Stock Work Phone: [facility] 08-13-2023 13:44-0400 Body weight 97.[address] Panda Stock Work Phone: [facility] 08-13-2023 13:44-0400 Diastolic blood pressure 76 mm[Hg] Dr. Panda tSock Work Phone: [facility] 08-13-2023 13:44-0400 Heart rate 90 /min Dr. Panda Stock Work Phone: [facility] 08-13-2023 13:44-0400 Systolic blood pressure 123 mm[Hg] Dr. Panda Stock Work Phone: [facility] 07-17-2023 13:49-0400 Body mass index (BMI) [Ratio] 39.9 kg/m2 Dr. Panda Stock Work Phone: [facility] 07-17-2023 13:49-0400 Body weight 98.[address] Panda Stock Work Phone: [facility] 07-17-2023 13:49-0400 Diastolic blood pressure 70 mm[Hg] Dr. Panda Stock Work Phone: [facility] 07-17-2023 13:49-0400 Heart rate 94 /min Dr. Panda Stock Work Phone: [facility] 07-17-2023 13:49-0400 Systolic blood pressure 108 mm[Hg] Dr. Panda Stock Work Phone: [facility] 06-19-2023 10:52-0400 Body mass index (BMI) [Ratio] 40.1 kg/m2 Dr. Panda Stock Work Phone: [facility] 06-19-2023 10:52-0400 Body weight 99.[address] Panda Stock Work Phone: [facility] 06-19-2023 10:52-0400 Diastolic blood pressure 82 mm[Hg] Dr. Panda Stock Work Phone: [facility] 06-19-2023 10:52-0400 Systolic blood pressure 122 mm[Hg] Dr. Panda Stock Work Phone: [facility] 01-26-2023 16:35-0400 Body height 157.[address] Panda Stock Work Phone: [facility] 01-26-2023 16:32-0400 Body mass index (BMI) [Ratio] 43 kg/m2 Dr. Panda Stock Work Phone: [facility] 01-26-2023 16:32-0400 Body weight 106.[address] Panda Stock Work Phone: [facility] 01-26-2023 16:32-0400 Diastolic blood pressure 82 mm[Hg] Dr. Panda Stock Work Phone: [facility] 01-26-2023 16:32-0400 Systolic blood pressure 133 mm[Hg] Dr. Panda Stock Work Phone: [facility] 12-22-2022 13:27-0500 Body height 157.[address] Panda Stock Work Phone: [facility] 12-22-2022 13:21-0500 Body mass index (BMI) [Ratio] 42.9 kg/m2 Dr. Panda Stock Work Phone: [facility] 12-22-2022 13:21-0500 Body weight 106.[address] Panda Stock Work Phone: [facility] 12-22-2022 13:21-0500 Diastolic blood pressure 82 mm[Hg] Dr. Panda Stock Work Phone: [facility] 12-22-2022 13:21-0500 Systolic blood pressure 122 mm[Hg] Dr. Panda Stock Work Phone: [facility] 09-30-2022 08:02-0500 Diastolic blood pressure 76 mm[Hg] Dr. Panda Stock Work Phone: [facility] 09-30-2022 08:02-0500 Heart rate 71 /min Dr. Panda Stock Work Phone: [facility] 09-30-2022 08:02-0500 Respiratory rate 15 /min Dr. Panda Stock Work Phone: [facility] 09-30-2022 08:02-0500 SaO2% (BldA) [Mass fraction] 98 % Dr. Panda Stock Work Phone: [facility] 09-30-2022 08:02-0500 Systolic blood pressure 128 mm[Hg] Dr. Panda Stock Work Phone: [facility] 09-30-2022 06:29-0500 Body height 157.[address] Panda Stock Work Phone: [facility] Work Phone: 09-30-2022 06:29-0500 Body mass index (BMI) [Ratio] 41 kg/m2 Dr. Panda Stock Work Phone: [facility] 09-30-2022 06:29-0500 Body temperature 98.8 [degF] Dr. Panda Stock Work Phone: [facility] 09-30-2022 06:29-0500 Body weight 101.[address] Panda Stock Work Phone: [facility] 09-10-2022 09:10-0500 Body mass index (BMI) [Ratio] 39.9 kg/m2 Dr. Panda Stock Work Phone: [facility] 09-10-2022 09:10-0500 Body weight 99.[address] Panda Stock Work Phone: [facility] 09-10-2022 09:10-0500 Diastolic blood pressure 78 mm[Hg] Dr. Panda Stock Work Phone: [facility] 09-10-2022 09:10-0500 Systolic blood pressure 120 mm[Hg] Dr. Panda Stock Work Phone: [facility] 08-25-2022 15:18-0400 Body height 157.[address] Panda Stock Work Phone: [facility] Work Phone: 08-25-2022 15:14-0400 Body mass index (BMI) [Ratio] 40.3 kg/m2 Dr. Panda Stock Work Phone: [facility] Work Phone: 08-25-2022 15:14-0400 Body weight 99.[address] Panda Stock Work Phone: [facility] Work Phone: 08-25-2022 15:14-0400 Diastolic blood pressure 82 mm[Hg] Dr. Panda Stock Work Phone: [facility] Work Phone: 08-25-2022 15:14-0400 Systolic blood pressure 128 mm[Hg] Dr. Panda Stock Work Phone: [facility] Work Phone: 08-05-2022 13:51-0400 Body height 157.[address] Panda Stock Work Phone: [facility] Work Phone: 08-05-2022 13:51-0400 Body mass index (BMI) [Ratio] 40.5 kg/m2 Dr. Panda Stock Work Phone: [facility] Work Phone: 08-05-2022 13:51-0400 Body weight 100.[address] Panda Stock Work Phone: [facility] Work Phone: 08-05-2022 13:51-0400 Diastolic blood pressure 79 mm[Hg] Dr. Panda Stock Work Phone: [facility] Work Phone: 08-05-2022 13:51-0400 Heart rate 101 /min Dr. Panda Stock Work Phone: [facility] Work Phone: 08-05-2022 13:51-0400 Systolic blood pressure 122 mm[Hg] Dr. Panda Stock Work Phone: [facility] Work Phone: 07-08-2022 13:46-0400 Body height 157.[address] Panda Stock Work Phone: [facility] Work Phone: 07-08-2022 13:46-0400 Body mass index (BMI) [Ratio] 41.5 kg/m2 Dr. Panda Stock Work Phone: [facility] Work Phone: 07-08-2022 13:46-0400 Body weight 103.[address] Panda Stock Work Phone: [facility] Work Phone: 07-08-2022 13:46-0400 Diastolic blood pressure 77 mm[Hg] Dr. Panda Stock Work Phone: [facility] Work Phone: 07-08-2022 13:46-0400 Systolic blood pressure 116 mm[Hg] Dr. Panda Stock Work Phone: [facility] Work Phone: 06-09-2022 13:54-0400 Body mass index (BMI) [Ratio] 43.7 kg/m2 Dr. Panda Stock Work Phone: [facility] Work Phone: 06-09-2022 13:54-0400 Body weight 108.[address] Panda Stock Work Phone: [facility] Work Phone: 06-09-2022 13:54-0400 Diastolic blood pressure 72 mm[Hg] Dr. Panda Stock Work Phone: [facility] Work Phone: 06-09-2022 13:54-0400 Systolic blood pressure 120 mm[Hg] Dr. Panda Stock Work Phone: [facility] Work Phone: 01-24-2022 08:33-0400 Body height 157.[address] Panda Stock Work Phone: [facility] Work Phone: 01-24-2022 08:33-0400 Body mass index (BMI) [Ratio] 41.8 kg/m2 Dr. Panda Stock Work Phone: [facility] Work Phone: 01-24-2022 08:33-0400 Body weight 103.[address] Panda Stock Work Phone: [facility] Work Phone: 01-24-2022 08:33-0400 Diastolic blood pressure 76 mm[Hg] Dr. Panda Stock Work Phone: [facility] Work Phone: 01-24-2022 08:33-0400 Heart rate 77 /min Dr. Panda Stock Work Phone: [facility] Work Phone: 01-24-2022 08:33-0400 Respiratory rate 16 /min Dr. Panda Stock Work Phone: [facility] Work Phone: 01-24-2022 08:33-0400 Systolic blood pressure 120 mm[Hg] Dr. Panda Stokc Work Phone: [facility] Work Phone: 01-24-2022 08:33-0400 Body height 157.[address] Panda Stock Work Phone: [facility] Work Phone: 01-24-2022 08:33-0400 Body mass index (BMI) [Ratio] 41.8 kg/m2 Dr. Panda Stock Work Phone: [facility] Work Phone: 01-24-2022 08:33-0400 Body weight 103.[address] Panda Stock Work Phone: [facility] Work Phone: 01-24-2022 08:33-0400 Diastolic blood pressure 76 mm[Hg] Dr. Panda Stock Work Phone: [facility] Work Phone: 01-24-2022 08:33-0400 Heart rate 77 /min Dr. Panda Stock Work Phone: [facility] Work Phone: 01-24-2022 08:33-0400 Respiratory rate 16 /min Dr. Panda Stock Work Phone: [facility] Work Phone: 01-24-2022 08:33-0400 Systolic blood pressure 120 mm[Hg] Dr. Panda Stock Work Phone: [facility] Work Phone: 11-21-2021 10:17-0500 Body temperature 98.4 [degF] Dr. Panda Stock Work Phone: [facility] Work Phone: 11-21-2021 10:17-0500 Diastolic blood pressure 82 mm[Hg] Dr. Panda Stock Work Phone: [facility] Work Phone: 11-21-2021 10:17-0500 Heart rate 60 /min Dr. Panda Stock Work Phone: [facility] Work Phone: 11-21-2021 10:17-0500 Respiratory rate 14 /min Dr. Panda Stock Work Phone: [facility] Work Phone: 11-21-2021 10:17-0500 SaO2% (BldA) [Mass fraction] 97 % Dr. Panda Stock Work Phone: [facility] Work Phone: 11-21-2021 10:17-0500 Systolic blood pressure 124 mm[Hg] Dr. Panda Stock Work Phone: [facility] Work Phone: 11-21-2021 06:18-0500 Body mass index (BMI) [Ratio] 40.7 kg/m2 Dr. Panda Stock Work Phone: [facility] Work Phone: 11-21-2021 06:18-0500 Body weight 101.[address] Panda Stock Work Phone: [facility] [facility] Work Phone: 11-16-2021 11:03-0500 Body temperature 98.1 [degF] Dr. Panda Stock Work Phone: [facility] Work Phone: 11-16-2021 11:03-0500 Diastolic blood pressure 67 mm[Hg] Dr. Panda Stock Work Phone: [facility] Work Phone: 11-16-2021 11:03-0500 Heart rate 67 /min Dr. Panda Stock Work Phone: [facility] Work Phone: 11-16-2021 11:03-0500 Respiratory rate 16 /min Dr. Panda Stock Work Phone: [facility] Work Phone: 11-16-2021 11:03-0500 SaO2% (BldA) [Mass fraction] 100 % Dr. Panda Stock Work Phone: [facility] Work Phone: 11-16-2021 11:03-0500 Systolic blood pressure 115 mm[Hg] Dr. Panda Stock Work Phone: [facility] Work Phone: 11-16-2021 09:19-0500 Body mass index (BMI) [Ratio] 35.6 kg/m2 Dr. Panda Stock Work Phone: [facility] Work Phone: 11-16-2021 09:19-0500 Body weight 88.[address] Panda Stock Work Phone: [facility] Work Phone: Encounters Encounter Date Encounter Type Care Provider Facility Start: 05-30-2025 ambulatory Lala Ybarra C Fa cility:[facility] Start: 05-12-2025 End: 05-12-2025 Patient encounter procedure Jannette PAINTING -[facility] Work Phone: Start: 05-12-2025 End: 05-12-2025 ambulatory Lala Ybarra INPATIENT CARE MANAGER RN-C Work Phone: -[facility] Start: 04-13-2025 End: 04-13-[address] Cora Saeed DC -[facility] Work Phone: Start: 04-13-2025 End: 04-13-2025 ambulatory Lala Ybarra INPATIENT CARE MANAGER RN-C Work Phone: [facility] Work Phone: Start: 04-05-2025 End: 04-05-2025 ambulatory Lala Ybarra INPATIENT CARE MANAGER RN-C Work Phone: [facility] Work Phone: Start: 04-05-2025 End: 04-05-2025 Patient encounter procedure [facility] Lala Ybarra NP-C -Laboratory Jaclyn Arechiga Start: 04-05-2025 End: 04-05-2025 ambulatory Lala Ybarra Ame Facility:[facility] Start: 03-27-2025 End: 03-27-2025 Telephone encounter Scottie Chance MD Work Phone: OB/Gynecology Start: 03-22-2025 End: 05-22-2025 Follow-up encounter Johanna Thapa MD Work Phone: OB/Gynecology Start: 03-15-2025 End: 03-15-2025 Patient encounter procedure Scottie Chance MD Work Phone: OB/Gynecology Comment on above: Pap smear of cervix with ASCUS, cannot exclude HGSIL (Primary Dx) Start: 03-15-2025 End: 03-15-2025 ambulatory SCOTTIE CHANCE Facility:[facility] Start: 03-08-2025 End: 03-08-2025 ambulatory SCOTTIE CHANCE Facility:[facility] Start: 03-08-2025 End: 03-08-2025 Patient encounter procedure Scottie Chance MD Work Phone: OB/Gynecology Comment on above: Pap smear of cervix with ASCUS, cannot exclude HGSIL (Primary Dx) Start: 03-03-2025 ambulatory [facility] Fa cility:[facility] Start: 01-27-2025 End: 01-27-2025 Patient encounter procedure Nayely Gregg CNM -[facility] [place] Work Phone: Start: 01-27-2025 End: 01-27-2025 ambulatory Lala Ybarra INPATIENT CARE MANAGER RN-C Work Phone: [facility] Work Phone: Start: 01-27-2025 End: 01-27-2025 ambulatory [facility] Facility:[facility] Start: 01-24-2025 End: 01-24-[address] Cora Saeed DC -[facility] Work Phone: Start: 01-24-2025 End: 01-24-2025 ambulatory Lala Ybarra [facility] Facility:[facility] Start: 12-29-2024 End: 12-29-2024 Patient encounter procedure Demario Drake INPATIENT CARE MANAGER RN-C [facility] Work Phone: Start: 12-29-2024 End: 12-29-2024 ambulatory Lala [facility] Facility:[facility] Start: 11-02-2024 End: 11-02-2024 Patient encounter procedure Feliciano Echavarria PA -[facility] Work Phone: Start: 11-02-2024 End: 11-02-2024 ambulatory Lala [facility] Facility:[facility] Start: 10-06-2024 End: 10-06-2024 Patient encounter procedure Vivienne Rodrigueznger DO -Laboratory, [facility] Start: 10-06-2024 End: 10-06-2024 ambulatory Vivienne Rodrigueznger [facility] Facility:[facility] Start: 09-10-2024 End: 09-10-2024 ambulatory Vivienne Rodrigueznger [facility] Facility:[facility] Start: 07-28-2024 End: 07-28-2024 ambulatory [facility] Facility:[facility] Start: 07-20-2024 Encounter for other preprocedural examination Cintia Mcgee [facility] Start: 07-19-2024 End: 07-19-2024 [facility] Start: 07-12-2024 End: 07-12-2024 ambulatory Francisco Stock Facility:[facility] Start: 07-11-2024 End: 07-11-2024 ambulatory Francisco Stock Facility:[facility] Start: 07-05-2024 ambulatory Health Risk Assessment Facility:[facility] Start: 07-05-2024 End: 07-05-2024 ambulatory Francisco Stock Facility:[facility] Start: 06-28-2024 ambulatory Cintia Whitteni lity:[facility] Start: 06-28-2024 End: 06-28-2024 ambulatory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 Relationship Condition Age at Onset Recorded Date/T curt Not Specified Gout Unknown Arthritis Unknown Sudden cardiac Unknown Hemorrhagic disorder Unknown Malignant neoplasm Unknown Disorder of thyroid Unknown Cerebrovascular accident (CVA) Unknown Asthma Unknown father Hypertension Unknown Myocardial infarction 32 grandfather Hypertension Unknown Diabetes mellitus Unknown Myocardial infarction 53 Coronary artery disease Unknown grandmother Renal failure Unknown Hepatic cirrhosis Unknown Cardiac disease Unknown mother Hepatic fibrosis Unknown Gluten intolerance Unknown Advance Directives No Advanced Directives Records Found Advance Directive Response Recorded Date/ Time Living Will No November 21 8:42am Power of Tube Bending Machine Operator No November 21, 2021 8:42am Advance Directive Response Recorded Date/ Time Living Will No September 30 6:29am Power of Tube Bending Machine Operator No September 30, 2022 6:29am Advance Directive Response Recorded Date/ Time Living Will No September 30 7:29am Power of Tube Bending Machine Operator No September 30, 2022 7:29am Advance Directive Response Recorded Date/ Time Living Will No March 16, 2023 1 0:26am Power of Tube Bending Machine Operator No March 16, 2023 10:26am Advance Directive Response Recorded Date/ Time Living Will No March 16, 2023 1 1:26am Power of Tube Bending Machine Operator No March 16, 2023 11:26am Advance Directive Response Recorded Date/ Time Living Will No June 16 10:04am Do you have a Healthcare Power of Tube Bending Machine Operator? No June 16, 2024 10:04am Chief Complaint and Reason for Visit Chief Complaint NECK/LBP 1 Y FU LBP/HIP LBP/HIP Reason for Visit Segmental and somati c dysfunction of cervical region Segmental and somatic dysfunction of lumbar region Segmental and somatic dysfunction of pelvic region Segmental and somatic dysfunction of thoracic region Family history of heart disease Congenital pulmonic valve stenosis Segmental and somatic dysfunction of cervical region Segmental and somatic dysfunction of lumbar region Segmental and somatic dysfunction of pelvic region Segmental and somatic dysfunction of thoracic region Segmental and somatic dysfunction of cervical region Segmental and somatic dysfunction of lumbar region Segmental and somatic dysfunction of pelvic region Segmental and somatic dysfunction of thoracic region Chief Complaint LBP/HIP LBP/HIP 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 Reason for Visit Segmental and somati c dysfunction of cervical region Segmental and somatic dysfunction of lumbar region Segmental and somatic dysfunction of pelvic region Segmental and somatic dysfunction of thoracic region Segmental and somatic dysfunction of cervical region Segmental and somatic dysfunction of lumbar region Segmental and somatic dysfunction of pelvic region Segmental and somatic dysfunction of thoracic region BMI 40.0-44.9, adult Encounter for routine gynecological examination Obesity 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 INT'S & BOX weight / bp check LBP/UPPER BACK ABN MENSIS Reason for Visit BMI 40.0-44.9, adult Encounter for routine gynecological examination Obesity Obesity Segmental and somatic dysfunction of cervical region Segmental and somatic dysfunction of lumbar region Segmental and somatic dysfunction of pelvic region Segmental and somatic dysfunction of thoracic region 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 INT'S & BOX weight / bp check LBP/UPPER BACK ABN MENSIS AUB after intercourse Reason for Visit BMI 40.0-44.9, adult Encounter for routine gynecological examination Obesity Obesity Segmental and somatic dysfunction of cervical region Segmental and somatic dysfunction of lumbar region Segmental and somatic dysfunction of pelvic region Segmental and somatic dysfunction of thoracic region Postcoital bleeding Cervicitis 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 INT'S & BOX weight / bp check LBP/UPPER BACK ABN MENSIS AUB after intercourse Back pain 2WK Perry fry E ORDERS General Illness Reason for Visit BMI 40.0-44.9, adult Encounter for routine gynecological examination Obesity Obesity Segmental and somatic dysfunction of cervical region Segmental and somatic dysfunction of lumbar region Segmental and somatic dysfunction of pelvic region Segmental and somatic dysfunction of thoracic region Postcoital bleeding Cervicitis Segmental and somatic dysfunction of cervical region Segmental and somatic dysfunction of lumbar region Segmental and somatic dysfunction of pelvic region Segmental and somatic dysfunction of thoracic region Fertility testing Postcoital bleeding Chief Complaint 2WK David fry E ORDERS General Illness INFERTILITY INFERTILITY Back pain irregular menses PELVIC PAIN Reason for Visit Fertility testing Postcoital bleeding Segmental and somatic dysfunction of cervical region Segmental and somatic dysfunction of lumbar region Segmental and somatic dysfunction of pelvic region Segmental and somatic dysfunction of thoracic region 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 Menorrhagia with irregular cycle Pelvic pain Chief Complaint INFERTILITY INFERTILITY Back pain irregular menses PELVIC PAIN endometriosis consult THYROMEGALY Reason for Visit Segmental and somati c dysfunction of cervical region Segmental and somatic dysfunction of lumbar region Segmental and somatic dysfunction of pelvic region Segmental and somatic dysfunction of thoracic region 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 Menorrhagia with irregular cycle Pelvic pain Menorrhagia with irregular cycle Pelvic pain Thyromegaly Chief Complaint 1 M FU AUB and weigh t/BP Back pain 1 M FU 1 M FU SORE THROAT 1 M FU Reason for Visit Menorrhagia with irr egular cycle Obesity BMI 40.0-44.9, adult Segmental and somatic dysfunction of cervical region Segmental and somatic dysfunction of lumbar region Segmental and somatic dysfunction of pelvic region Segmental and somatic dysfunction of thoracic region Obesity BMI 40.0-44.9, adult BMI 39.0-39.9,adult Obesity Strep pharyngitis BMI 39.0-39.9,adult Menorrhagia with irregular cycle Obesity Pelvic pain Chief Complaint 1 M FU Back pain weight/BP check 1 M FU 1 M FU, missed appt 2/5 Back pain Back pain Reason for Visit Menorrhagia with irr egular cycle Obesity Pelvic pain BMI 39.0-39.9,adult Segmental and somatic dysfunction of cervical region Segmental and somatic dysfunction of lumbar region Segmental and somatic dysfunction of pelvic region Segmental and somatic dysfunction of thoracic region BMI 38.0-38.9,adult 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 Obesity Depression BMI 38.0-38.9,adult BMI 38.0-38.9,adult 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 Menorrhagia with irregular cycle Obesity Pelvic pain Segmental and somatic dysfunction of cervical region Segmental and somatic dysfunction of lumbar region Segmental and somatic dysfunction of pelvic region Segmental and somatic dysfunction of thoracic region Back pain Segmental and somatic dysfunction of cervical region Segmental and somatic dysfunction of lumbar region Segmental and somatic dysfunction of pelvic region Segmental and somatic dysfunction of thoracic region Chief Complaint 1 M FU 1 M FU, missed appt 2/5 Back pain Back pain 1 M FU Back pain Back pain 1 M FU Reason for Visit BMI 38.0-38.9,adult BMI 38.0-38.9,adult 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 Menorrhagia with irregular cycle Obesity Pelvic pain Segmental and somatic dysfunction of cervical region Segmental and somatic dysfunction of lumbar region Segmental and somatic dysfunction of pelvic region Segmental and somatic dysfunction of thoracic region Back pain Segmental and somatic dysfunction of cervical region Segmental and somatic dysfunction of lumbar region Segmental and somatic dysfunction of pelvic region Segmental and somatic dysfunction of thoracic region BMI 38.0-38.9,adult Obesity Back pain Segmental and somatic dysfunction of cervical region Segmental and somatic dysfunction of lumbar region Segmental and somatic dysfunction of pelvic region Segmental and somatic dysfunction of thoracic region Back pain Segmental and somatic dysfunction of cervical region Segmental and somatic dysfunction of lumbar region Segmental and somatic dysfunction of pelvic region Segmental and somatic dysfunction of thoracic region BMI 38.0-38.9,adult Calf pain Obesity Chief Complaint Admit Date SORE THROAT, COUGH, HEADACHE October 7:02am 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/ [facility] November 02, 2024 7: 12am 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/ [facility] December 29, 2024 12:3 4pm SORE THROAT, HEADACHE December 29, 2024 12 :35pm REEVAL January 24, 2025 1:25 pm 6 M FU January 27, 2025 3:29 pm Reason for Visit Admit Date Acute pharyngitis, unspecified November 022024 7:02am RSV (respiratory syncytial virus infecti on) November 02, 2024 7:02am Viral URI December 29, 2024 12:3 5pm Back pain January 24, 2025 1:25 pm Segmental and somatic dysfunction of cer vical region January 24, 2025 1:25pm Segmental and somatic dysfunction of lum bar region January 24, 2025 1:25pm Segmental and somatic dysfunction of pel aundrea region January 24, 2025 1:25pm Segmental and somatic dysfunction of tho racic region January 24, 2025 1:25pm FRANCISCO 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 January 27, 2025 3:29pm Chief Complaint Admit Date 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/ [facility] December 29, 2024 12:3 4pm SORE THROAT, HEADACHE December 29, 2024 12 :35pm REEVAL January 24, 2025 1:25 pm 6 M FU January 27, 2025 3:29 pm Reason for Visit Admit Date Viral URI December 29, 2024 12:3 5pm Back pain January 24, 2025 1:25 pm Segmental and somatic dysfunction of cer vical region January 24, 2025 1:25pm Segmental and somatic dysfunction of lum bar region January 24, 2025 1:25pm Segmental and somatic dysfunction of pel aundrea region January 24, 2025 1:25pm Segmental and somatic dysfunction of tho racic region January 24, 2025 1:25pm FRANCISCO 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 January 27, 2025 3:29pm Chief Complaint Admit Date 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/ [facility] December 29, 2024 12:3 4pm SORE THROAT, HEADACHE December 29, 2024 12 :35pm REEVAL January 24, 2025 1:25 pm 6 M FU January 27, 2025 3:29 pm BACK PAIN April 13, 2025 10:5 2am Reason for Visit Admit Date Viral URI December 29, 2024 12:3 5pm Back pain January 24, 2025 1:25 pm Segmental and somatic dysfunction of cer vical region January 24, 2025 1:25pm Segmental and somatic dysfunction of lum bar region January 24, 2025 1:25pm Segmental and somatic dysfunction of pel aundrea region January 24, 2025 1:25pm Segmental and somatic dysfunction of tho racic region January 24, 2025 1:25pm FRANCISCO 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 January 27, 2025 3:29pm Segmental and somatic dysfunction of cer vical region April 13, 2025 10:52am Segmental and somatic dysfunction of lum bar region April 13, 2025 10:52am Segmental and somatic dysfunction of pel aundrea region April 13, 2025 10:52am Segmental and somatic dysfunction of tho racic region April 13, 2025 10:52am Chief Complaint Admit Date REEVAL January 24, 2025 1:25 pm 6 M FU January 27, 2025 3:29 pm BACK PAIN April 13, 2025 10:5 2am 1 Y FU May 12, 2025 2:26 pm Reason for Visit Admit Date Back pain January 24, 2025 1:25 pm Segmental and somatic dysfunction of cer vical region January 24, 2025 1:25pm Segmental and somatic dysfunction of lum bar region January 24, 2025 1:25pm Segmental and somatic dysfunction of pel aundrea region January 24, 2025 1:25pm Segmental and somatic dysfunction of tho racic region January 24, 2025 1:25pm FRANCISCO 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 January 27, 2025 3:29pm Segmental and somatic dysfunction of cer vical region April 13, 2025 10:52am Segmental and somatic dysfunction of lum bar region April 13, 2025 10:52am Segmental and somatic dysfunction of pel aundrea region April 13, 2025 10:52am Segmental and somatic dysfunction of tho racic region April 13, 2025 10:52am Family history of heart disease April 2:26pm Near syncope May 12, 2025 2:26 pm Vasovagal near syncope May 12, 2025 2 :26pm Congenital pulmonic valve stenosis May 12, 2025 2:26pm Summary Purpose Additional Source Comments Care Teams (unrecognized sec tion and content) Team Status: Active Member Role Status Dates Dr. Panda Stock MD Family Provider Active Dr. Panda Stock MD Primary Care Provider Activ e Team Status: Inactive Member Role Status Dates Dr. Panda Stock MD Primary Care Provider, Refe rring Provider Active Cari Holman INPATIENT CARE MANAGER RN, INPATIENT CARE MANAGER RN-C Attending Provider Active Team Status: Active Member Role Status Dates Dr. Panda Stock MD Primary Care Provider Activ e Dr. Cintia Mcgee MD Attending Provider, Other Provider Active Team Status: Inactive Member Role Status Dates Dr. Panda Stock MD Primary Care Provider, Refe rring Provider Active Dr. Cora Saeed DC Attending Provider Active Team Status: Inactive Member Role Status Dates Dr. Panda Stock MD Primary Care Provider Activ e Cari Holman INPATIENT CARE MANAGER RN, INPATIENT CARE MANAGER RN-C Attending Provider, Referring Provider Active Team Status: Inactive Member Role Status Dates Dr. Panda Stock MD Primary Care Provider Activ e Shaw Alves MD Attending Provider, Emergency Provid er Active Team Status: Inactive Member Role Status Dates Dr. Panda Stock MD Primary Care Provider Activ e Dr. Cintia Mcgee MD Attending Provider Active Team Status: Inactive Member Role Status Dates Dr. Panda Stock MD Primary Care Provider Activ e Cari Holman INPATIENT CARE MANAGER RN, INPATIENT CARE MANAGER RN-C Attending Provider Active Team Status: Inactive Member Role Status Dates Dr. Panda Stock MD Primary Care Provider, Refe rring Provider Active Dr. Cintia Mcgee MD Attending Provider Active Team Status: Active Member Role Status Dates Dr. Panda Stock MD Primary Care Provider Activ e Dr. Cintia Mcgee MD Attending Provider, Referr ing Provider Active Team Status: Inactive Member Role Status Dates Dr. Panda Stock MD Primary Care Provider Activ e Dr. Cintia Mcgee MD Attending Provider, Referr ing Provider Active Team Status: Active Member Role Status Dates Dr. Panda Stock MD Family Provider Active Team Status: Inactive Member Role Status Dates Dr. Panda Stock MD Referring Provider Active Dr. Cintia Mcgee MD Attending Provider Active Team Status: Inactive Member Role Status Dates MERT Norris Attending Provider Active Team Status: Inactive Member Role Status Dates Dr. Cintia Mcgee MD Attending Provider, Referr ing Provider Active Team Status: Active Member Role Status Dates Dr. Panda Stock MD Primary Care Provider Activ e Health Risk Assessment Attending Provider Active Team Status: Inactive Member Role Status Dates Dr. Cora Saeed DC Attending Provider Active Team Status: Inactive Member Role Status Dates Dr. Cintia Mcgee MD Attending Provider Active Team Status: Inactive Member Role Status Dates Dr. Cora Saeed DC Attending Provider Active Dr. aPnda Stock MD Primary Care Provider, Refe rring Provider Active Team Status: Inactive Member Role Status Dates Dr. Panda Stock MD Primary Care Provider Activ e Dr. Cora Saeed DC Attending Provider, Referring Pro vider Active Team Status: Active Member Role Status Dates Dr. Francisco Stock MD Family Provider Active Dr. Francisco Stock MD Primary Care Provider Acti ve Team Status: Inactive Member Role Status Dates Dr. Cintia Mcgee MD Attending Provider Active Dr. Francisco Stock MD Primary Care Provider, Ref erring Provider Active Team Status: Inactive Member Role Status Dates Dr. Cora Saeed DC Attending Provider Active Dr. Francisco Stock MD Primary Care Provider, Ref erring Provider Active Team Status: Inactive Member Role Status Dates Dr. Francisco Stock MD Primary Care Provider, Ref erring Provider Active Dr. Cora Saeed DC Attending Provider Active Team Status: Inactive Member Role Status Dates Dr. Francisco Stock MD Primary Care Provider, Ref erring Provider Active Dr. Cintia Mcgee MD Attending Provider Active Team Status: Active Member Role Status Dates Dr. Francisco Stock MD Primary Care Provider, Ref erring Provider Active Dr. Cora Saeed DC Attending Provider Active Team Status: Inactive Member Role Status Dates Dr. Francisco Stock MD Primary Care Provider Acti ve Dr. Cora Saeed DC Attending Provider, Referring Pro vider Active Team Status: Inactive Member Role Status Dates Dr. Francisco Stock MD Primary Care Provider Acti ve Dr. Cintia Mcgee MD Attending Provider Active Team Status: Active Member Role Status Dates Lala Tate VSC, INPATIENT CARE MANAGER RN-C Primary Care Provider Activ e Team Status: Inactive Member Role Status Dates Lala Tate VSC, INPATIENT CARE MANAGER RN-C Primary Care Provider Activ e Start: October 06, 2024 End: October 06, 2024 Vivienne East VSC, DO Attending Provider Active Start: October 06, 2024 End: October 06, 2024 Vivienne East VSC, DO Referring Provider Active Start: October 06, 2024 End: October 06, 2024 Team Status: Inactive Member Role Status Dates Lala Ybarra VSC, INPATIENT CARE MANAGER RN-C Primary Care Provider Activ e Start: November 02, 2024 End: November 02, 2024 Lalarene Ybarra VSC, INPATIENT CARE MANAGER RN-C Referring Provider Active Start: November 02, 2024 End: November 02, 2024 Feliciano Echavarria PA, PA Attending Provider Active Start: November 02, 2024 End: November 02, 2024 Team Status: Inactive Member Role Status Dates Lala Ybarra VSC, INPATIENT CARE MANAGER RN-C Primary Care Provider Activ e Start: December 29, 2024 End: December 29, 2024 Lalarene Ybarra VSC, INPATIENT CARE MANAGER RN-C Referring Provider Active Start: December 29, 2024 End: December 29, 2024 Demario Drake INPATIENT CARE MANAGER RN-C Attending Provider Active Star t: December 29, 2024 End: December 29, 2024 Team Status: Inactive Member Role Status Dates Lala Ybarra VSC, INPATIENT CARE MANAGER RN-C Primary Care Provider Activ e Start: January 24, 2025 End: January 24, 2025 Lala Ybarra VSC, INPATIENT CARE MANAGER RN-C Referring Provider Active Start: January 24, 2025 End: January 24, 2025 Dr. Cora Saeed DC Attending Provider Active S tart: January 24, 2025 End: January 24, 2025 Team Status: Inactive Member Role Status Dates Dr. Francisco Stock MD Referring Provider Active Start: January 27, 2025 End: January 27, 2025 Lala Tate VSC, INPATIENT CARE MANAGER RN-C Primary Care Provider Activ e Start: January 27, 2025 End: January 27, 2025 Nayely Gregg CNM Attending Provider Active S tart: January 27, 2025 End: January 27, 2025 Team Status: Inactive Member Role Status Dates Lala MARTE INPATIENT CARE MANAGER RN-C Primary Care Provider Activ e Start: January 27, 2025 End: January 27, 2025 Nayely Gregg CNM Attending Provider Active S tart: January 27, 2025 End: January 27, 2025 Nayely Gregg CNM Referring Provider Active S tart: January 27, 2025 End: January 27, 2025 Vocal Music Teacher Relationship Specialty Start Date End Date Praneeth Quevedo [address] [place] [address] Referring Orthopedics 08/24/19 Vocal Music Teacher Relationship Specialty Start Date End Date Praneeth Quevedo [address] [place], [place] [address] Referring Orthopedics 08/24/19 Vocal Music Teacher Relationship Specialty Start Date End Date Praneeth Quevedo [address] [place], [place] [id number] Referring Orthopedics 08/24/19 Team Status: Inactive Member Role Status Dates Lala MARTE INPATIENT CARE MANAGER RN-C Primary Care Provider Activ e Start: April 05, 2025 End: April 05, 2025 Lala MARTE INPATIENT CARE MANAGER RN-C Attending Provider Active Start: April 05, 2025 End: April 05, 2025 Team Status: Inactive Member Role Status Dates Lala MARTE INPATIENT CARE MANAGER RN-C Primary Care Provider Activ e Start: April 13, 2025 End: April 13, 2025 Lala MARTE, INPATIENT CARE MANAGER RN-C Referring Provider Active Start: April 13, 2025 End: April 13, 2025 Dr. Cora Saeed , ARNAUD Attending Provider Active S tart: April 13, 2025 End: April 13, 2025 Team Status: Active Member Role/Relationship Status Dates Lala MARTE, INPATIENT CARE MANAGER RN-C Primary Care Provider Activ e Team Status: Inactive Member Role/Relationship Status Dates Lala Ybarra VSC, INPATIENT CARE MANAGER RN-C Primary Care Provider Activ e Start: January 24, 2025 End: January 24, 2025 Lala Ybarra VSC, INPATIENT CARE MANAGER RN-C Referring Provider Active Start: January 24, 2025 End: January 24, 2025 Dr. Cora Saeed DC Attending Provider Active S tart: January 24, 2025 End: January 24, 2025 Team Status: Inactive Member Role/Relationship Status Dates Dr. Francisco Stock MD Referring Provider Active Start: January 27, 2025 End: January 27, 2025 Lala Tate VSC, INPATIENT CARE MANAGER RN-C Primary Care Provider Activ e Start: January 27, 2025 End: January 27, 2025 Nayely Gregg CNM Attending Provider Active S tart: January 27, 2025 End: January 27, 2025 Team Status: Inactive Member Role/Relationship Status Dates Lala Tate BERTINC, INPATIENT CARE MANAGER RN-C Primary Care Provider Activ e Start: January 27, 2025 End: January 27, 2025 Nayely Gregg CNM Attending Provider Active S tart: January 27, 2025 End: January 27, 2025 Nayely Gregg CNM Referring Provider Active S tart: January 27, 2025 End: January 27, 2025 Team Status: Inactive Member Role/Relationship Status Dates Lala Tate VSC, INPATIENT CARE MANAGER RN-C Primary Care Provider Activ e Start: April 05, 2025 End: April 05, 2025 Lala Tate VSC, INPATIENT CARE MANAGER RN-C Attending Provider Active Start: April 05, 2025 End: April 05, 2025 Team Status: Inactive Member Role/Relationship Status Dates Lala Tate VSC, INPATIENT CARE MANAGER RN-C Primary Care Provider Activ e Start: April 13, 2025 End: April 13, 2025 Lala Tate VSC, INPATIENT CARE MANAGER RN-C Referring Provider Active Start: April 13, 2025 End: April 13, 2025 Dr. Cora Saeed DC Attending Provider Active S tart: April 13, 2025 End: April 13, 2025 Team Status: Inactive Member Role/Relationship Status Dates Lala Tate VSC, INPATIENT CARE MANAGER RN-C Primary Care Provider Activ e Start: May 12, 2025 End: May 12, 2025 Lala Ybarra VSC, INPATIENT CARE MANAGER RN-C Referring Provider Active Start: May 12, 2025 End: May 12, 2025 Jannette PAINTING PA Attending Provider Active Start: May 12, 2025 End: May 12, 2025 Vocal Music Teacher Relationship Specialty Start Date End Date Praneeth Quevedo [address] [place] [address] Referring Orthopedics 08/24/19 Source Comments (unrecognize d section and content) In the event this informatio n is protected by the Federal Confidentiality of Alcohol and Drug Abuse Patient Records regulations: The Federal rules restrict any use of the information to criminally investigate or prosecute any alcohol or drug abuse patient.[facility] the event this information is protected by the Federal Confidentiality of Alcohol and Drug Abuse Patient Records regulations: The Federal rules restrict any use of the information to criminally investigate or prosecute any alcohol or drug abuse patient.[facility] the event this information is protected by the Federal Confidentiality of Alcohol and Drug Abuse Patient Records regulations: The Federal rules restrict any use of the information to criminally investigate or prosecute any alcohol or drug abuse patient.[facility] the event this information is protected by the Federal Confidentiality of Alcohol and Drug Abuse Patient Records regulations: The Federal rules restrict any use of the information to criminally investigate or prosecute any alcohol or drug abuse patient.[facility] Reason for Visit (unrecogniz ed section and content) Reason Comments Consult Reason Comments Colposcopy Specialty Diagnoses / Procedures Referred By Mason rao Referred To Contact [facility] Diagnoses Pap smear of cervix with ASCUS, cannot exclude HGSIL Procedures COLPOSCOPY COLPOSCOPY CERVIX BX CERVIX & ENDOCRV CURRDAVIDGE Scottie Chance MD [address] [place] [address] Phone: tel: fax: [facility] [address] [place] [address] Referral ID Status Reason Start Date Expiration Date V isits Requested Visits Authorized [id number] Closed Auto-Generate d Referral 03/08/2025 03/08/2026 1 1 INFORMATION SOURCE (unrecogn ized section and content) DATE CREATED AUTHOR 03/27/2025 [facility] DATE CREATED AUTHOR AUTHOR'S ORGANIZ ATION 05/24/2025 [facility] FOR RECORDS PERTAINING TO PATIENTS WHO ARE [...] BE BASED ON THE PRIMARY CLINICAL RECORDS. [facility]. provides no warranty or guarantee of the accuracy or completeness of information in this document.
== END | disposition home or self-care (01) ==
LOC: CVS 07:02
PROVIDERS: PCP Nurse Practitioner Family; Referring Provider Physician Assistant Medical; Visit Provider Physician Assistant Medical
DX: Q22.1 Congenital pulmonary valve stenosis (principal)
CPT/HCPCS: 93306

== ENCOUNTER → 2025-08-16 | Outpatient (CLI) | payer OTHER, BC, SELFPAY ==
--- OUTSIDE RECORDS SUMMARY | 2025-08-16 04:12 | XMS RPT_ITS | CCD ---
Author Organization [facility] Care Team Providers Care [employer] Specialist Name Role Phone Dr. Panda Stock Primary Care Provider [phone] Dr. Panda Stock Referring Provider Dr. Hi Silverio Attending Provider Dr. Cora Saeed Attending Provider [phone] [facility] BRIM STITCHER, BRIM STITCHER-Ame Cat Attending Provider Dr. Panda Stock Primary Care Provider [phone] Dr. Panda Stock Referring Provider Dr. Cora Saeed Attending Provider [phone] Dr. Panda Stock Primary Care Provider [phone] Dr. Panda Stock Referring Provider Dr. Cora Saeed Attending Provider [phone] [place] BRIM STITCHERUZIEL Attending Provider Dr. Panda Stock Primary Care Provider [phone] Dr. Panda Stock Referring Provider Dr. Cora Saeed Attending Provider [phone] Dr. Panda Stock Primary Care Provider [phone] Dr. Panda Stock Referring Provider [place] BRIM STITCHERUZIEL Attending Provider Dr. Cora Saeed Attending Provider [phone] Dr. Panda Stock Primary Care Provider [phone] Dr. Panda Stock Referring Provider [place] BRIM STITCHER, BRIM STITCHER-C Cari Attending Provider [phone] Dr. Cintia Mcgee Attending Provider [phone] Dr. Cintia Mcgee Other Provider Dr. Cora Saeed Attending Provider [phone] Dr. Panda Stock Primary Care Provider Dr. Cintia Mcgee Attending Provider [phone] Dr. Cintia Mcgee Other Provider [phone] Dr. Panda Stock Referring Provider Dr. Cora Saeed Attending Provider [phone] [place] BRIM STITCHER, BRIM STITCHER-C Cari Attending Provider [phone] Dr. Panda Stock Primary Care Provider Dr. Panda Stock Referring Provider Dr. Cintia Mcgee Attending Provider [phone] Dr. Cora Saeed Attending Provider [phone] MERT Zendejas Attending Provider [phone] Dr. Panda Stock Referring Provider Dr. Cintia Mcgee Attending Provider [phone] Dr. Cora Saeed Attending Provider [phone] Dr. Panda Stock Primary Care Provider Dr. Cintia Mcgee Attending Provider [phone] Dr. Cora Saeed Attending Provider [phone] Dr. Francisco Stock Primary Care Provider [phone] Dr. Francisco Stock Referring Provider Tate BRIM STITCHER-CLala Primary Care Provider Vivienne East DO Attending Provider Vivienne East DO Referring Provider Tate BRIM STITCHER-C, Lala Referring Provider Feliciano Ge Attending Provider [phone] Noelle BRIM STITCHER-C, Demario Attending Provider Darlin LARES, Dr. Shepherd Attending Provider [phone] Montrell PERSAUD, Dr. Singh Referring Provider [phone] Nayely Gregg CNM Attending Provider [phone] Nayely Gregg CNM Referring Provider [phone] SaePraneeth Tuyet Unavailable SCOTTIE CHANCE Referring Unavailable SCOTTIE CHANCE Attending Unavailable SCOTTIE CHANCE Attending Unavailable Tate BRIM STITCHER-C, Lala Primary Care Provider Tate BRIM STITCHER-C, Lala Referring Provider Tate BRIM STITCHER-C, Lala Attending Provider Tate BRIM STITCHER-C, Lala Primary Care Provider Tate BRIM STITCHER-C, Lala Referring Provider Jannette Christensen Attending Provider Tate BRIM STITCHER-C, Lala Primary Care Provider Tate BRIM STITCHER-C, Lala Referring Provider Darlin LARES, Dr. Shepherd Attending Provider [phone] Jannette Christensen Referring Provider [phone] Shara PERSAUD, Dr. Rivas Attending Provider [phone] Jannette Christensen Attending Unavail able Jannette Christensen Referring Unavail able Lala Ybarra, [facility] Primary Care Unavailabl e Trista Lala Attending Unavailabl e Lala Ybarra, [facility] Referring Unavailabl e Lala Tate, [facility] Primary Care Unavailabl e Feliciano Echavarria Attending Unavailable Lala Ybarra, [facility] Referring Unavailabl e Lala Ybarra, [facility] Primary Care Unavailabl e Francisco Stock Referring Unavailable Nayely Gregg Attending Unavailable Lala Ybarra, [facility] Primary Care Unavailabl e Cora Saeed Attending Unavailable Lala Tate, [facility] Referring Unavailabl e Lala Tate, [facility] Primary Care Unavailabl e Demario Drake Attending Unavailable Lala Ybarra, [facility] Referring Unavailabl e Lala Tate, [facility] Primary Care Unavailabl Feliciano Ruano Attending Unavailable Lala Ybarra, [facility] Referring Unavailabl e Lala Tate, [facility] Primary Care Unavailabl e Demario Drake Attending Unavailable Lala Ybarra, [facility] Referring Unavailabl e Lala Tate, [facility] Primary Care Unavailabl e Cora Saeed Attending Unavailable Lalarene Ybarra, [facility] Referring Unavailabl e Lala Tate, [facility] Primary Care Unavailabl e Jannette Christensen Attending Unavail able Lala Ybarra, [facility] Referring Unavailabl e Lala Tate, [facility] Primary Care Unavailabl e Rob Olmedo Attending Unavailable Lala Ybarra, [facility] Primary Care Unavailabl e Lala Ybarra, [facility] Attending UnavailFrancisco Blanco Primary Care Unavailable Beam [facility], [employer] Unavailable Lala Ybarra, [facility] Referring Unavailabl e Lala Tate, [facility] Primary Care Unavailabl e Lalarene Ybarra, [facility] Attending Unavailabl e Lala Ybarra, [facility] Primary Care Unavailabl e Cruzito [facility], Vivienne Attending Unavailable Cruzito [facility] Referring Un[facility] Unav[facility] Cruzito Ame, Vivienne Attending Unavailable Cruzito [facility] Referring Unavailable Nayely Gregg Attending Unavailable Nayely Gregg Referring [facility] Unavailabl e Lala Ybarra, [facility] Attending Unavailabl e Lala Ybarra, [facility] Primary Care Unavailabl e Assessment, Health Risk Attending Unavaila ble Beam [facility], [employer] Primary Care Unavailable Allergies Allergy Classification Reported Allergen(s) Allergy Type Date of Onset Reaction(s) Facility (20 sources) Adhesive Tape; Translations: [adhesive tape] Allergy to substance 2 abrasion [facility] (20 sources) HYDROcodone; Translations: [HYDROCODONE] Drug Allergy 8 Other: See Comments [facility] (9 sources) flu vaccine Allergy to substance 2 Swelling [facility] (3 sources) Norethindrone Drug Allergy 3 Rash [facility] (8 sources) Influenza Vaccines Allergy to substance 3 Swelling [facility] (8 sources) Norethindrone Drug Allergy 3 Rash [facility] (4 sources) ADHESIVE TAPE-SILICONES; Translations: [ADHESIVE TAPE-SILICONES] Propensity to adverse reactions to drug (disorder) [facility] (1 source) HYDROcodone Drug Allergy 5 [facility] Repository (1 source) Norethindrone Drug Allergy 5 [facility] Repository (1 source) Influenza Virus Vaccines Drug allergy (disorder) 5 [facility] Repository Medications Current Medications Medication Drug Class(es) Dates Sig (Normalized) Sig (Original) [id number] 200 actuat albuterol 0.09 mg/actuat metered dose inhaler (5 sources) beta2-Adrener gic Agonist Start: 4 Albuterol Sulfate 90 mcg/actuation HFA aerosol inhaler Active 2 NMA INHALATION Q4H as needed for shortness of breath or wheezing June 16, 2024 12:00am medroxyPROGESTERone acetate 10 mg oral tablet (20 sources) Progestin Start: 3 Medroxyprogesterone (Provera) 10 mg tablet Active 10 MG PO daily January 26, 2023 12:00am start day 14 of every month take daily for 10 days Start: 12-07-2019 End: 05-22-2020 take 1 tablet by mouth once daily Medroxyprogesterone (Provera) 10 mg tablet Discontinued 10 mg PO DAILY 10 December 07, 2019 1:00am May 22, 2020 11:04am Multivitamin (Daily Multi-Vitamin) tablet (5 sources) Start: 06-16-2024 Multivitamin (Daily Multi-Vitamin) tablet Active 1 {tbl} PO DAILY June 16, 2024 12:00am nabumetone 750 mg oral tablet (4 sources) Nonsteroidal Anti-inflammatory Drug take 1 tablet by mouth twice daily nabumetone (RELAFEN) 750 mg tablet Take 750 mg by mouth twice daily. Active [facility] (Nk) (2 sources) Start: 09-10-2022 [facility] (Nk) Active September 10, 2022 12:00am phentermine [...] DAILY 30 0 August 05, 2022 4:08pm September 10, 2022 10:10am must administer 30 minutes before or 1-2 hours after breakfast vit 91/iron/folic/dha ( + DHA ORAL) (4 sources) take 1 tablet by mouth once daily vit 91/iron/folic/dha ( + DHA ORAL) Take 1 tablet by mouth once daily. Active Semaglutide 2 mg/dose (8 mg/3 mL) pen injector (2 sources) Start: 05-12-2025 Semaglutide 2 mg/dose (8 mg/3 mL) pen injector Active 2 mg SC EVERY WEEK May 12, 2025 12:00am Completed/Discontinued Medications Medication Drug Class(es) Dates Sig (Normalized) Sig (Original) acetaminophen 325 mg / oxyCODONE hydrochloride 5 mg oral tablet (5 sources) Opioid Agonist Start: 05-31-2024 End: 06-16-2024 Oxycodone-Acetamin ophen (Endocet) 5-325 mg tablet Discontinued 1 {tbl} PO EVERY 6 HOURS as needed for pain 8 2 0 May 31, 2024 June 16, 2024 9:59am Abdominal pain affecting Other specified related conditions, unspecified trimester Unspecified abdominal pain amoxicillin 500 mg oral capsule (19 sources) Penicillin-class Antibacterial Start: 08-08-2020 End: 08-18-2020 take 2 capsules by mouth twice daily Amoxicillin 500 mg capsule Discontinued 1000 mg PO TWICE A DAY 40 10 0 August 08, 2020 12:00am August 17, 2020 [...] Discontinued 1 {tbl} PO Q12H 20 10 0 April 16, 2023 12:00am April 25, 2023 12:00am April 26, 2023 12:04am Acute sinusitis, unspecified Start: 04-16-2023 End: 04-26-2023 take 1 tablet by mouth every twelve hours Amoxicillin-Pot Clavulanate Discontinued 1 TABLET PO Q12H 20 April 16, 2023 12:00am April 26, 2023 12:04am Start: 03-14-2021 End: 05-09-2021 Amoxicillin-Pot Clavulanate (Augmentin) 875-125 mg tablet Discontinued 1 {tbl} PO Q12H 19 0 March 14, 2021 12:00am May 09, 2021 2:46pm benzonatate 200 mg oral capsule (5 sources) Non-narcotic Antitussive Start: 07-12-2024 End: 11-02-2024 take 1 capsule by mouth three times daily as needed for cough Benzonatate 200 mg capsule Discontinued 200 mg PO THREE TIMES A DAY as needed for cough 20 0 July 12, 2024 12:00am November 02, 2024 [...] daily. Active cephalexin 500 mg oral capsule (8 sources) Cephalosporin Antibacterial Start: 08-13-2023 End: 08-23-2023 take 1 capsule by mouth every twelve hours Cephalexin 500 mg capsule Discontinued 500 mg PO Q12H 20 10 0 August 13, 2023 12:00am August 22, 2023 [...] 2:02pm clomiPHENE citrate 50 mg oral tablet (19 sources) Estrogen Agonist/Antagonist Start: 01-02-2020 End: 01-07-2020 [...] mg tablet Discontinued 1 {tbl} PO daily June 06, 2021 12:00am June 09, 2022 1:53pm Start: 06-06-2021 End: 06-09-2022 Desogestrel-Ethinyl Estradio l (Apri) 0.15-0.03 mg tablet Discontinued 1 TABLET PO daily June 05, 2021 11:00pm June 09, 2022 12:53pm Start: 06-06-2021 End: 06-09-2022 Desogestrel-Ethinyl Estradio l (Apri) 0.15-0.03 mg tablet Discontinued 1 TABLET PO daily June 06, 2021 12:00am June 09, 2022 1:53pm Start: 06-06-2021 Desogestrel-Et hinyl Estradiol (Apri) 0.15-0.03 mg tablet Active 1 TABLET PO daily 84 June 06, 2021 12:00am dexamethasone 6 mg oral tablet (5 sources) Corticosteroid Start: 07-12-2024 End: 11-02-2024 take 1 tablet by mouth once daily Dexamethasone 6 mg tablet Discontinued 6 mg PO DAILY 5 0 July 12, 2024 12:00am November 02, 2024 [...] 12:00am August 08, 2020 9:44am Drospirenone-Ethinyl Estradiol (8 sources) Progestin, Estrogen Start: 05-15-2023 End: 03-25-2024 [...] daily May 14, 2023 11:00pm Levonorgestrel-Ethinyl Estrad (19 sources) Progestin, Estrogen, Progestin-containing Intrauterine Device Start: 08-17-2019 End: 11-21-2019 take 1 tablet by mouth once daily Levonorgestrel-Ethinyl Estrad (Aviane) 0.1-20 mg-mcg tablet Discontinued 1 TABLET PO daily 84 August 17, 2019 3:36pm November 21, 2019 12:37pm Start: 08-17-2019 End: 11-21-2019 take 1 tablet by mouth once daily Levonorgestrel-Ethinyl Estrad (Aviane) 0.1-20 mg-mcg tablet Discontinued 1 {tbl} PO daily 84 August 17, 2019 12:00am November 21, 2019 12:37pm Start: 08-17-2019 End: 11-21-2019 take 1 tablet by mouth once daily Levonorgestrel-Ethinyl Estrad (Aviane) 0.1-20 mg-mcg tablet Discontinued 1 {tbl} PO daily 84 August 17, 2019 12:00am November 21, 2019 12:37pm Start: 08-17-2019 End: 11-21-2019 take 1 tablet by mouth once daily Levonorgestrel-Ethinyl Estrad (Aviane) 0.1-20 mg-mcg tablet Discontinued 1 TABLET PO daily 84 August 16, 2019 11:00pm November 21, 2019 11:37am Start: 08-17-2019 End: 11-21-2019 take 1 tablet by mouth once daily Levonorgestrel-Ethinyl Estrad (Aviane) 0.1-20 mg-mcg tablet Discontinued 1 TABLET PO daily 84 August 17, 2019 12:00am November 21, 2019 12:37pm Norgestimate-Ethinyl Estradiol (19 sources) Progestin, Estrogen Start: 06-18-2020 End: 06-06-2021 [...] 3 days FLUoxetine 10 mg oral capsule (19 sources) Serotonin Reuptake Inhibitor Start: 06-06-2021 End: 06-09-2022 take 1 capsule by mouth once daily Fluoxetine (Prozac) 10 mg capsule Discontinued 10 mg PO DAILY June 06, 2021 12:00am June 09, 2022 1:53pm fluticasone propionate 0.05 mg/actuat metered dose nasal spray (19 sources) Corticosteroid Start: 12-25-2020 End: 05-09-2021 take [...] lansoprazole 15 mg delayed release oral capsule (19 sources) Proton Pump Inhibitor Start: 06-06-2021 End: 06-09-2022 take 1 capsule by mouth once daily as needed Lansoprazole (Prevacid) 15 mg capsule,delayed release(DR/EC) Discontinued 15 mg PO DAILY as needed for heart burn June 06, 2021 12:00am June 09, 2022 1:53pm levonorgestrel 0.798695 mg/hr intrauterine system (20 sources) Progestin, Progestin-containi [...] intrauterine device Discontinued 1 INSERT INTRA-UTER ONCE February 10, 2019 8:25am February 10, 2019 8:47am Start: 09-27-2018 End: 11-11-2018 Levonorgestrel 14 mcg/24 magda r (3 years) intrauterine device Discontinued 1 NMA INTRA-UTER ONCE September 27, 2018 1:00am November 11, 2018 12:48pm Start: 09-27-2018 End: 11-11-2018 Levonorgestrel Discontinued 1 INSERT INTRA-UTER ONCE September 27, 2018 1:00am November 11, 2018 12:48pm megestrol acetate 40 mg oral tablet (11 sources) Progestin Start: 12-24-2022 End: 01-26-2023 Megestrol [...] omeprazole 20 mg delayed release oral capsule (8 sources) Proton Pump Inhibitor Start: 03-19-2023 End: [...] 2020 4:29pm Semaglutide 0.25 mg/0.05 mL syringe (2 sources) Start: 05-12-2025 End: 05-12-2025 Semaglutide 0.25 mg/0.05 mL syringe Discontinued mg SC as needed May 12, 2025 12:00am May 12, 2025 2:30pm sulfamethoxazole 800 mg / trimethoprim 160 mg oral tablet (19 sources) Dihydrofolate Reductase Inhibitor Antibacterial, Sulfonamide Antimicrobial Start: 04-06-2019 End: 11-21-2019 Sulfamethoxazole-Tri methoprim 1 EACH tablet Discontinued 1 NMA PO TWICE A DAY April 06, 2019 12:00am November 21, 2019 12:37pm Start: 04-06-2019 End: 11-21-2019 Sulfamethoxazole-Trimethopri m Discontinued 1 EACH PO TWICE A DAY April 06, 2019 12:00am November 21, 2019 12:37pm topiramate 50 mg oral tablet (16 sources) Start: 09-10-2023 End: 03-25-2024 take 1 [...] in pelvis; Translations: [Pelvic and perineal pain] 12-22-2022 Episodic Comment on above: ocp for now Anxiety disorders (19 sources) Anxiety; Translations: [Anxiety disorder, unspecified] 09-06-2019 Chronic Cardiac and circulatory congenital anomalies (20 sources) Congenital stenosis of pulmonary valve; 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 valve stenosis] Onset: 06-08-20 Chronic Comment on above: s/p cardiac approval for phentermine Cardiac dysrhythmias (5 sources) Palpitations; Translations: [Palpitations] 03-25-2024 Episodic Contraceptive and procreative management (19 sources) Patient encounter status; Translations: [Encounter for fertility testing] Episodic Comment on above: OVA good supply, goo d quality; 21 day progesterone and SA for partner ordered Esophageal disorders (8 sources) Gastroesophageal reflux disease; Translations: [Gastro-esophageal reflux disease without esophagitis] 03-19-2023 Chronic Female infertility (19 sources) 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; 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] 12-22-2022 Chronic Comment on above: bilateral blockage s een, but questionable tubal spasm.saw RGI:IVF offered and declined Headache; including migraine (19 sources) Cluster headache; Translations: [Cluster headache syndrome, unspecified, not intractable] 09-06-2019 Chronic Heart valve disorders (19 sources) Heart murmur; Translations: [Cardiac murmur, unspecified] 09-06-2019 Episodic Immunizations and screening for infectious disease (3 sources) Contact with and (suspected) exposure to other viral communicable diseases; Translations: [Contact with or suspected exposure to other viral communicable disease] 04-16-2023 Episodic Inflammatory diseases of female pelvic organs (3 sources) Inflammatory disease of cervix uteri; Translations: [Cervicitis and endocervicitis] Episodic Influenza (13 sources) Influenza due to Influenza A virus; Translations: [Influenza due to other identified influenza virus with other respiratory manifestations] 10-08-2022 Episodic Menstrual disorders (20 sources) Menometrorrhagia; Translations: [Excessive and frequent menstruation with irregular cycle] Onset: 11-08-1912-22-2022 Chronic Comment on above: ocp switched to diff erent pill. doing well Mood disorders (20 sources) Depressive disorder; Translations: [Depression] 09-06-2019 Chronic [...] region] Onset: 04-13-20 Episodic Other complications of (5 sources) Abdominal pain in ; Translations: [Other specified related conditions, unspecified trimester] 06-08-2024 Episodic Other connective tissue disease (6 sources) Pain in calf; Translations: [Pain in unspecified lower leg] 01-29-2024 Episodic Comment on above: bmp ordered Other connective tissue disease (1 source) Pain in unspecified lower leg; Translations: [Pain in limb] 01-29-2024 Episodic Other female genital disorders (16 sources) Abnormal uterine bleeding; Translations: [Abnormal uterine and vaginal bleeding, unspecified] 12-22-2022 Chronic Comment on above: bleeding after inter course x 2 Other female genital disorders (14 sources) Postcoital bleeding; Translations: [Postcoital and contact bleeding] 09-10-2022 Chronic Comment on above: friable cx:doxy: res olved Other female genital disorders (6 sources) Postcoital and contact bleeding; Translations: [Postcoital bleeding] Chronic Other female genital disorders (5 sources) Vaginal bleeding; Translations: [Abnormal uterine and vaginal bleeding, unspecified] 06-08-2024 Chronic Other gastrointestinal disorders (8 sources) Dysphagia; Translations: [Dysphagia, unspecified] 02-09-2023 Episodic [...] for item #1. Other lower respiratory disease (19 sources) Chest pain on breathing; Translations: [Chest pain on breathing] 09-07-2019 Episodic Other nutritional; endocrine; and metabolic disorders (17 sources) Body mass index 40+ - severely obese; Translations: [Body mass index (BMI) 40.0-44.9, adult] 06-09-2022 Chronic Other nutritional; endocrine; and metabolic disorders (17 sources) Obesity; Translations: [Obesity, unspecified] 08-05-2022 Chronic Comment on above: Nutrition plan: [facility] [id number] calorie, student life dean consult Medication plan: plan 18.75mg Phentermine, increased [...] Chronic Other nutritional; endocrine; and metabolic disorders (15 sources) Body mass index 30+ - obesity; [...] conditions (not mental disorders or infectious disease) (8 sources) Finding of neck region; Translations: [Abnormal [...] serum calcium, PTH, and vitamin D. Other upper respiratory infections (20 sources) Acute sinusitis; Translations: [Acute sinusitis, unspecified] 10-08-2022 Episodic Residual codes; unclassified (20 sources) Family history of cardiac disorder; Translations: [Family history of ischemic heart disease and other diseases of the circulatory system] 01-24-2022 Episodic Residual codes; unclassified (2 sources) Family history of ischemic heart disease and other diseases of the circulatory system; Translations: [Family history of other cardiovascular diseases] Episodic Spondylosis; intervertebral disc disorders; other back problems (20 sources) Backache; Translations: [Dorsalgia, unspecified] 12-24-2023 Episodic Spontaneous (5 sources) Miscarriage; Translations: [Complete or unspecified spontaneous without complication] 06-02-2024 Episodic Syncope (14 sources) Near syncope; Translations: [Syncope and collapse] 05-20-2024 Episodic Thyroid disorders (20 sources) Goiter; 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) [...] Translations: [Post COVID-19 condition, unspecified] Onset: 08-10-20 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, unspecified] Onset: 01-27-2025 07-04-2024 Episodic Comment on above: LEEP: HPV changes no piyush, repeat pap in 6 months(11/2024) Fluid and electrolyte disorders (1 source) Hypo-osmolality and hyponatremia; Translations: [Hypo-osmolality and hyponatremia] Onset: 08-18-2024 Episodic Other non-traumatic joint disorders (1 source) Pain in unspecified ankle and joints of unspecified foot; Translations: [Pain in unspecified ankle and joints of unspecified foot] Onset: 09-15-2024 Episodic Other screening for suspected conditions (not mental disorders or infectious disease) (20 sources) Cardiovascular stress test abnormal; Translations: [Abnormal result of other cardiovascular function study] Onset: 02-01-2025 11-22-2018 Episodic Comment on above: repeat WNL Other skin disorders (1 source) Acanthosis nigricans; Translations: [Acanthosis nigricans] Onset: 04-12-2025 Episodic Results Test Name Value Interpretation Reference Range Facility CBC, Employee[employer] 07-12-2025 Absolute Lymph 1.82 X10 3/uL Normal 0.83-4.51 [facility] Comment on above: Performed By: #### L 500.2900, L100.0200, L400.0100 #### [facility] [address] [place], [address] Absolute Neut 4.2 X10 3/uL Normal 2.0-7.7 [facility] Comment on above: Performed By: #### L 500.2900, L100.0200, L400.0100 #### [facility] [address] [place], [address] Basophils/100 WBC (Bld) 0.5 % Normal 0-1 [facility] Comment on above: Performed By: #### L 500.2900, L100.0200, L400.0100 #### [facility] [address] [place], [address] Eosinophils/100 WBC (Bld) 1.2 % Normal 0-5 [facility] Comment on above: Performed By: #### L 500.2900, L100.0200, L400.0100 #### [facility] [address] [place], [address] Erythrocyte distribution width (RBC) [Ratio] 13.6 % Normal 11.6-14.6 [facility] Comment on above: Performed By: #### L 500.2900, L100.0200, L400.0100 #### [facility] [address] [place], [address] Hematocrit (Bld) [Volume fraction] 40.8 % Normal 37-47 [facility] Comment on above: Performed By: #### L 500.2900, L100.0200, L400.0100 #### [facility] [address] [place], [address] Hemoglobin (Bld) [Mass/Vol] 13.6 g/dL Normal 12.0-15.0 [facility] Comment on above: Performed By: #### L 500.2900, L100.0200, L400.0100 #### [facility] [facility] [address] [place], [address] Lymphocytes/100 WBC (Bld) 27.7 % Normal 19-41 [facility] Comment on above: Performed By: #### L 500.2900, L100.0200, L400.0100 #### [facility] [address] [place], [address] MCH (RBC) [Entitic mass] 28.8 pg Normal 27.0-32.0 [facility] Comment on above: Performed By: #### L 500.2900, L100.0200, L400.0100 #### [facility] [address] [place], [address] MCHC (RBC) [Mass/Vol] 33.3 g/dL Normal 32-36 [facility] Comment on above: Performed By: #### L 500.2900, L100.0200, L400.0100 #### [facility] [address] [place], [address] MCV (RBC) [Entitic vol] 86.4 fL Normal 81-99 [facility] Comment on above: Performed By: #### L 500.2900, L100.0200, L400.0100 #### [facility] [address] [place], [address] Monocytes/100 WBC (Bld) 7.0 % Normal 0-10 [facility] Comment on above: Performed By: #### L 500.2900, L100.0200, L400.0100 #### [facility] [address] [place], [address] Neutrophils/100 WBC (Bld) 63.3 % Normal 47-70 [facility] Comment on above: Performed By: #### L 500.2900, L100.0200, L400.0100 #### [facility] [address] [place], [address] NRBC # 0.00 10 3/uL Normal 0-5 [facility] Comment on above: Performed By: #### L 500.2900, L100.0200, L400.0100 #### [facility] [address] [place], [address] Nucleated RBC (Bld) [#/Vol] 0 10*3/uL Normal 0-5 [facility] Comment on above: Performed By: #### L 500.2900, L100.0200, L400.0100 #### [facility] [address] [place], [address] Platelet mean volume (Bld) [Entitic vol] 12.7 fL High 6.2-12.0 [facility] Comment on above: Performed By: #### L 500.2900, L100.0200, L400.0100 #### [facility] [address] [place], [address] Platelets (Bld) [#/Vol] 304 10*3/uL Normal 150-450 [facility] Comment on above: Performed By: #### L 500.2900, L100.0200, L400.0100 #### [facility] [address] [place], [address] RBC (Bld) [#/Vol] 4.72 10*6/uL Normal 4.2-5.4 [facility] Comment on above: Performed By: #### L 500.2900, L100.0200, L400.0100 #### [facility] [address] [place], [address] RDW SD 42.3 fl Normal 35.1-43.9 [facility] Comment on above: Performed By: #### L 500.2900, L100.0200, L400.0100 #### [facility] [address] [place], [address] WBC (Bld) [#/Vol] 6.6 10*3/uL Normal 4.4-11.0 [facility] Comment on above: Performed By: #### L 500.2900, L100.0200, L400.0100 #### [facility] [address] [place], [address] Employee Profileon 5 LDH 216 U/L Normal 84-246 [facility] Comment on above: Performed By: #### L 500.2900, L100.0200, L400.0100 #### [facility] [address] [place], [address] Phosphate [Mass/Vol] 3.4 mg/dL Normal 2.7-4.5 [facility] Comment on above: Performed By: #### L 500.2900, L100.0200, L400.0100 #### [facility] [address] [place], [address] URIC 4.7 mg/dL Normal 2.6-6.0 [facility] Comment on above: Result Comment: The drugs N-Acetylcysteine and Metamizole may falsely depress this assay. Performed By: #### L 500.2900, L100.0200, L400.0100 #### [facility] [address] [place], [address] Urinalysis, Employeeon 07-12 BILIRUBIN URINE Negative Normal Negative [facility] Comment on above: Order Comment: CLEAN CATCH Performed By: #### L 500.2900, L100.0200, L400.0100 #### [facility] [address] [place], [address] Clarity (U) Cloudy Normal Clear [facility] Comment on above: Order Comment: CLEAN CATCH Performed By: #### L 500.2900, L100.0200, L400.0100 #### [facility] [address] [place], [address] Color (U) Yellow Normal Yellow [facility] Comment on above: Order Comment: CLEAN CATCH Performed By: #### L 500.2900, L100.0200, L400.0100 #### [facility] [address] [place], [address] GLUCOSE, UR Normal Normal Normal [facility] Comment on above: Order Comment: CLEAN CATCH Performed By: #### L 500.2900, L100.0200, L400.0100 #### [facility] [address] [place], [address] KETONE UR Negative Normal Negative [facility] Comment on above: Order Comment: CLEAN CATCH Performed By: #### L 500.2900, L100.0200, L400.0100 #### [facility] [address] [place], [address] LEUK ESTERASE 100 /ul Abnormal Negative [facility] Comment on above: Order Comment: CLEAN CATCH Performed By: #### L 500.2900, L100.0200, L400.0100 #### [facility] [address] [place], [address] Nitrite Ql (U) Negative Normal Negative [facility] Comment on above: Order Comment: CLEAN CATCH Performed By: #### L 500.2900, L100.0200, L400.0100 #### [facility] [address] [place], [address] OCCULT BLOOD-UR Negative Normal Negative [facility] Comment on above: Order Comment: CLEAN CATCH Performed By: #### L 500.2900, L100.0200, L400.0100 #### [facility] [address] [place], [address] pH UR 6.0 Normal 5.0 - 8.0 [facility] Comment on above: Order Comment: CLEAN CATCH Performed By: #### L 500.2900, L100.0200, L400.0100 #### [facility] [address] [place], [address] PROT DIPSTX 30 mg/dl Abnormal Negative [facility] Comment on above: Order Comment: CLEAN CATCH Performed By: #### L 500.2900, L100.0200, L400.0100 #### [facility] [address] [place], [address] SP.GR. DIPSTX 1.020 Normal 1.002-1.03 0 [facility] Comment on above: Order Comment: CLEAN CATCH Performed By: #### L 500.2900, L100.0200, L400.0100 #### [facility] [address] [place], [address] UROBILI Normal Normal Normal [facility] Comment on above: Order Comment: CLEAN CATCH Performed By: #### L 500.2900, L100.0200, L400.0100 #### [facility] [address] [place], [address] Echo Completeon 05-30-2025 Echo Complete [facility] [address] [place] [address] Echo Complete 05/30/25 0706 MR#: [id number] Acct: [id number] Name: KATIE PULLIAM Rep #: [id number] : 1995 From: Rob Olmedo MD Attending Dr: MERT Phillips Status: REG CLI Ordering Dr: Jannette Wilcox Date: 03/19 Location: CVS Sex: F C Admitted: Reason For Study Reason For Study: CONGENITAL PUMLMONARY VALVE STENOSIS Procedure This was a 2D Doppler, Color Flow transthoracic echocardiogram. Exam performed in department. Left Ventricle Normal LV size. The left ventricular ejection fraction is 65 %. No regional wall motion abnormalities noted. Right Ventricle Normal RV size. Normal systolic function. Atria Normal left atrium. Normal right atrium. Mitral Valve Normal mitral valve. Tricuspid Valve Normal tricuspid valve. Aortic Valve Trisinus/trileaflet aortic valve. Pulmonic Valve Normal pulmonic valve. No significant pulmonic stenosis noted. Great Vessels Normal aortic root. The pulmonary artery is normal size. Inferior vena cava collapse with respiration. Pericardium/Pleural No pericardial effusion. MMode/2D Measurements Calculations LVIDd: 3.9 cm IVSd: 0.93 cm Ao root diam: 2.6 cm LVIDs: 2.3 cm LVPWd: 0.89 cm RVDd: 3.3 cm FS: 41.9 % asc Aorta Diam: 2.7 cm LVAd ap4: 28.1 cm2 LVAd ap2: 23.5 cm2 LVLd ap4: 8.2 cm LVLd ap2: 8.4 cm EDV(MOD-sp4): 79.2 ml EDV(MOD-sp2): 55.7 ml EDV(sp4-el): 81.9 ml EDV(sp2-el): 55.7 ml LVAs ap4: 14.9 cm2 LVAs ap2: 14.2 cm2 LVLs ap4: 6.7 cm LVLs ap2: 7.1 cm ESV(MOD-sp4): 29.2 ml ESV(MOD-sp2): 24.7 ml ESV(sp4-el): 28.2 ml ESV(sp2-el): 24.2 ml EF(MOD-sp4): 63.2 % EF(MOD-sp2): 55.7 % EF(sp4-el): 65.6 % SV(MOD-sp4): 50.0 ml SV(MOD-sp2): 31.0 ml SV(sp4-el): 53.7 ml SI(MOD-sp4): 24.2 ml/m2 SI(MOD-sp2): 15.0 ml/m2 LA dimension(2D): 2.8 cm TAPSE: 2.2 cm Time Measurements MV dec time: 0.21 sec Doppler Measurements Calculations MV E max le: 72.0 cm/sec Lat Peak E' Le: 19.4 cm/sec Med Peak E' Le: 18.9 cm/sec MV A max el: 54.4 cm/sec E/E' lat: 3.7 E/E' med: 3.8 MV E/A: 1.3 MV V2 max: 105.7 cm/sec MV P1/2t max le: 107.2 cm/sec Ao V2 max: 143.7 cm/sec MV max P.5 mmHg MV P1/2t: 63.3 msec Ao max P.3 mmHg MV V2 mean: 58.7 cm/sec MV dec slope: 496.1 cm/sec2 Ao V2 mean: 100.0 cm/sec MV mean P.6 mmHg Ao mean P.5 mmHg MV V2 VTI: 21.6 cm MVA(P1/2t): 3.5 cm2 Ao V2 VTI: 27.8 cm AV (velocity ratio): 0.81 LV V1 max: 117.0 cm/sec PA V2 max: 150.1 cm/sec LV V1 max P.5 mmHg PA V2 mean: 91.2 cm/sec LV V1 mean P.1 mmHg PA V2 VTI: 26.4 cm LV V1 mean: 83.9 cm/sec LV V1 VTI: 22.4 cm ECHO/Echo Complete Interpretation Summary Normal LV size. The left ventricular ejection fraction is 65 %. Normal pulmonic valve. No significant pulmonic stenosis noted. Ordering Physician: Jannette Wilcox Referring Physician: Lala Ybarra Performed By: Jerri Garcia, TODD, RVT 05/30/25 1140 Date Rob Olmedo MD CC: VSC BRIM STITCHER-C Lala Ybarra; MERT Phillips Date Dictated: 05/30/25 07 Date Transcribed: 05/30/25 1140 Director Of Catering: Signed Normal [facility] Echocardiogram study reportO rdered By: Rob Olmedo on 05-30-2025 Study report [facility] [address] [facility] [address] Echo Complete 05/30/25705 MR#: [id number] Acct: [id number] Name: KATIE PULLIAM Rep #:[id number] : 1995 30 From: Rob Mathis Attending Dr: MERT Phillips Status: REG CLI Ordering Dr: Jannette Wilcox PA Date: 05/30/25 Location: [facility] Sex: F C Admitted: Reason For Study Reason For Study: CONGENITAL PUMLMONARY VALVE STENOSIS Procedure This was a 2D Doppler, Color Flow transthoracic echocardiogram. Exam performed in department. Left Ventricle Normal LV size. The left ventricular ejection fraction is 65 %. No regional wallmotion abnormalities noted. Right Ventricle Normal RV size. Normal systolic function. Atria Normal left atrium. Normal right atrium. Mitral Valve Normal mitral valve. Tricuspid Valve Normal tricuspid valve. Aortic Valve Trisinus/trileaflet aortic valve. Pulmonic Valve Normal pulmonic valve. No significant pulmonic stenosis noted. Great Vessels Normal aortic root. The pulmonary artery is normal size. Inferior vena cava collapse with respiration. Pericardium/Pleural No pericardial effusion. MMode/2D Measurements & Calculations LVIDd: 3.9 cm IVSd: 0.93 cm Ao root diam: 2.6 cm LVIDs: 2.3 cm LVPWd: 0.89 cm RVDd: 3.3 cm FS: 41.9 % asc Aorta Diam: 2.7 cm LVAd ap4: 28.1 cm2 LVAd ap2: 23.5 cm2 LVLd ap4: 8.2 cm LVLd ap2: 8.4 cm EDV(MOD-sp4): 79.2 ml EDV(MOD-sp2): 55.7 ml EDV(sp4-el): 81.9 ml EDV(sp2-el): 55.7 ml LVAs ap4: 14.9 cm2 LVAs ap2: 14.2 cm2 LVLs ap4: 6.7 cm LVLs ap2: 7.1 cm ESV(MOD-sp4): 29.2 ml ESV(MOD-sp2): 24.7 ml ESV(sp4-el): 28.2 ml ESV(sp2-el): 24.2 ml EF(MOD-sp4): 63.2 % EF(MOD-sp2): 55.7 % EF(sp4-el): 65.6 % SV(MOD-sp4): 50.0 ml SV(MOD-sp2): 31.0 ml SV(sp4-el): 53.7 ml SI(MOD-sp4): 24.2 ml/m2 SI(MOD-sp2): 15.0 ml/m2 LA dimension(2D): 2.8 cm TAPSE: 2.2 cm Time Measurements MV dec time: 0.21 sec Doppler Measurements & Calculations MV E max le: 72.0 cm/sec Lat Peak E' Le: 19.4 cm/sec Med Peak E' Le: 18.9 cm/sec MV A max le: 54.4 cm/sec E/E' lat: 3.7 E/E' med: 3.8 MV E/A: 1.3 MV V2 max: 105.7 cm/sec MV P1/2t max le: 107.2 cm/sec Ao V2 max: 143.7 cm/sec MV max P.5 mmHg MV P1/2t: 63.3 msec Ao max P.3 mmHg MV V2 mean: 58.7 cm/sec MV dec slope: 496.1 cm/sec2 Ao V2 mean: 100.0 cm/sec MV mean P.6 mmHg Ao mean P.5 mmHg MV V2 VTI: 21.6 cm MVA(P1/2t): 3.5 cm2 Ao V2 VTI: 27.8 cm AV (velocity ratio): 0.81 LV V1 max: 117.0 cm/sec PA V2 max: 150.1 cm/sec LV V1 max P.5 mmHg PA V2 mean: 91.2 cm/sec LV V1 mean P.1 mmHg PA V2 VTI: 26.4 cm LV V1 mean: 83.9 cm/sec LV V1 VTI: 22.4 cm ECHO/Echo Complete Interpretation Summary Normal LV size. The left ventricular ejection fraction is 65 %. Normal pulmonic valve. No significant pulmonic stenosis noted. Ordering Physician: Jannette Wilcox Referring Physician: Lala Ybarra Performed By: Jerri Garcia, TODD, RVT 05/30/25 1140 Date _ Rob Olmedo MD CC: VSC BRIM STITCHER-C Lala Ybarra; MERT Phillips ~ Date Dictated: 05/30/25705 Date Transcribed: 05/30/25 1140 Director Of Catering: Signed [facility] Work Phone: Cardiology Visit Reporton Cardiology Visit Report [facility] [address] [place] [address] OFFICE VISIT Date of Service: 05/12/25 MR#: [id number] Acct: [id number] Name: KATIE PULLIAM Rep #: [id number] : 1995 Provider: MERT Alicea Age/Sex: 30/F Location: [facility] Status: Signed HPI HPI History of Present Illness Details: KATIE CHENG, is a 30 year old white female who presents to the office today for outpatient cardiovascular follow up based upon concerns of underlying of congenital pulmonic stenosis. She had previously been followed through [facility]. She did have a transthoracic echocardiogram which [...] 100 Intake Visit Reasons: 1 Y FU Fine Grade Operator Required: No Is patient in pain?: No [...] home: Yes additional social history: Works at [employer] [facility] ROS Const Const: Negative for fatigue, weakness, headache(s) or f (more content not included)... Normal [facility] Chiropractic Reporton 2024 Chiropractic Report [facility] [address] [place] [address] OFFICE VISIT Date of Service: 04/13/25 MR#: [id number] Acct: [id number] Name: KATIE PULLIAM Rep #: [id number] : 1995 Provider: ARNAUD Cavanaugh Age/Sex: 30/F Location: [facility] Status: Signed Intake Vital Signs 01/27/25 15:33 [...] tab PO DAILY 06/16/24 04/13/25 History tablet) [facility] Medical History Viral URI RSV (respiratory syncytial [...] home: Yes additional social history: Works at [employer] [facility] HPI BACK PAIN Chief Complaint: Back pain Visit Number: 2 Details: Katie Pulliam a 30 year old female is here to follow up with low back pain. She complains of increased low back pain over the last weekend. She states she worked the [place] [employer] last [place]end and stood for long hours [...] Yes thoraco-lum (more content not included)... Normal [facility] Insulin Levelon 04-07-2025 INSULIN,FASTING 10.8 uIU/mL Normal 2.6-24.9 [facility] Comment on above: Result Comment: Perf ormed at: - [facility] [address] [id number] Peeler Operator: Roque Soriano PhD, Phone: [phone] Performed By: #### L 500.4050, L505.5000, L501.9985, L501.9520, L100.0100, L506.0400, L3300.3500, L500.4100 ####[facility] [address] [place], [address] Absolute lymphocyte countOrd ered By: [facility] Lala Ybarra on 04-05-2025 Lymphocytes Auto (Unsp spec) [#/Vol] 1.95 10*3/uL 0.83-4.51 [facility] Absolute neutrophil countOrd ered By: [facility] Lala Ybarra on 04-05-2025 Neutrophils (Bld) [#/Vol] 4.7 10*3/uL 2.0-7.7 [facility] Amphetamine detection with 1 000 ng/mL as cutoffOrdered By: [facility] Lala Tate on 04-05-2025 Amphetamines Screen method >1000 ng/mL Ql (U) Negative < 200 ng/mL [facility] Anion gap in Serum or Plasma Ordered By: [facility] on 04-05-2025 Anion gap [Moles/Vol] 11 mmol/L 5-15 [facility] Automated lymphocyte count a s percentage of total leukocytesOrdered By: [facility] Tate on 04-05-2025 Lymphocytes/100 WBC Auto (Unsp spec) 26.9 % 19-41 [facility] BUN/creatinine ratioOrdered By: [facility] Tate on 04-05-2025 Urea nitrogen/Creatinine [Mass ratio] 17.0 mg/mg 10-20 [facility] Basophil percentageOrdered B y: [facility] Y[facility] on 04-05-2025 Basophils/100 WBC (Bld) 0.3 % 0-1 [facility] Bilirubin, totalOrdered By: [facility] Tate on 04-05-2025 Bilirubin [Mass/Vol] 0.31 mg/dL 0.00-1.30 [facility] CBC W/Diff, Automatedon 03-26 Absolute Lymph 1.95 X10 3/uL Normal 0.83-4.51 [facility] Comment on above: Performed By: #### L 500.4050, L505.5000, L501.9985, L501.9520, L100.0100, L506.0400, L3300.3500, L500.4100 ####[facility] [address] [place], [address] Absolute Neut 4.7 X10 3/uL Normal 2.0-7.7 [facility] Comment on above: Performed By: #### L 500.4050, L505.5000, L501.9985, L501.9520, L100.0100, L506.0400, L3300.3500, L500.4100 ####[facility] [address] [place], [address] Basophils/100 WBC (Bld) 0.3 % Normal 0-1 [facility] Comment on above: Performed By: #### L 500.4050, L505.5000, L501.9985, L501.9520, L100.0100, L506.0400, L3300.3500, L500.4100 ####[facility] [address] [place], [address] Eosinophils/100 WBC (Bld) 1.5 % Normal 0-5 [facility] Comment on above: Performed By: #### L 500.4050, L505.5000, L501.9985, L501.9520, L100.0100, L506.0400, L3300.3500, L500.4100 ####[facility] [address] [place], [address] Erythrocyte distribution width (RBC) [Ratio] 13.8 % Normal 11.6-14.6 [facility] Comment on above: Performed By: #### L 500.4050, L505.5000, L501.9985, L501.9520, L100.0100, L506.0400, L3300.3500, L500.4100 ####[facility] [address] [place], [address] Hematocrit (Bld) [Volume fraction] 39.2 % Normal 37-47 [facility] Comment on above: Performed By: #### L 500.4050, L505.5000, L501.9985, L501.9520, L100.0100, L506.0400, L3300.3500, L500.4100 ####[facility] [address] [place], [address] Hemoglobin (Bld) [Mass/Vol] 13.0 g/dL Normal 12.0-15.0 [facility] Comment on above: Performed By: #### L 500.4050, L505.5000, L501.9985, L501.9520, L100.0100, L506.0400, L3300.3500, L500.4100 ####[facility] [address] [place], [address] IG% 0.300 Normal 0.0-0.9 [facility] Comment on above: Result Comment: IG% - Immature Granulocytes (promyelocytes, myelocytes and metamyelocytes) > 1% indicates that a LEFT SHIFT is Present. Performed By: #### L 500.4050, L505.5000, L501.9985, L501.9520, L100.0100, L506.0400, L3300.3500, L500.4100 ####[facility] [address] [place], [address] Lymphocytes/100 WBC (Bld) 26.9 % Normal 19-41 [facility] Comment on above: Performed By: #### L 500.4050, L505.5000, L501.9985, L501.9520, L100.0100, L506.0400, L3300.3500, L500.4100 ####[facility] [address] [place], [address] MCH (RBC) [Entitic mass] 28.0 pg Normal 27.0-32.0 [facility] Comment on above: Performed By: #### L 500.4050, L505.5000, L501.9985, L501.9520, L100.0100, L506.0400, L3300.3500, L500.4100 ####[facility] [address] [place], [address] MCHC (RBC) [Mass/Vol] 33.2 g/dL Normal 32-36 [facility] Comment on above: Performed By: #### L 500.4050, L505.5000, L501.9985, L501.9520, L100.0100, L506.0400, L3300.3500, L500.4100 ####[facility] [address] [place], [address] MCV (RBC) [Entitic vol] 84.5 fL Normal 81-99 [facility] Comment on above: Performed By: #### L 500.4050, L505.5000, L501.9985, L501.9520, L100.0100, L506.0400, L3300.3500, L500.4100 ####[facility] [address] [place], [address] Monocytes/100 WBC (Bld) 6.3 % Normal 0-10 [facility] Comment on above: Performed By: #### L 500.4050, L505.5000, L501.9985, L501.9520, L100.0100, L506.0400, L3300.3500, L500.4100 ####[facility] [address] [place], [address] Neutrophils/100 WBC (Bld) 64.7 % Normal 47-70 [facility] Comment on above: Performed By: #### L 500.4050, L505.5000, L501.9985, L501.9520, L100.0100, L506.0400, L3300.3500, L500.4100 ####[facility] [address] [facility] [place], [address] Nucleated RBC (Bld) [#/Vol] 0 10*3/uL Normal 0-5 [facility] Comment on above: Performed By: #### L 500.4050, L505.5000, L501.9985, L501.9520, L100.0100, L506.0400, L3300.3500, L500.4100 ####[facility] [address] [place], [address] Platelet mean volume (Bld) [Entitic vol] 11.8 fL Normal 6.2-12.0 [facility] Comment on above: Performed By: #### L 500.4050, L505.5000, L501.9985, L501.9520, L100.0100, L506.0400, L3300.3500, L500.4100 ####[facility] [address] [place], [address] Platelets (Bld) [#/Vol] 293 10*3/uL Normal 150-450 [facility] Comment on above: Performed By: #### L 500.4050, L505.5000, L501.9985, L501.9520, L100.0100, L506.0400, L3300.3500, L500.4100 ####[facility] [address] [place], [address] RBC (Bld) [#/Vol] 4.64 10*6/uL Normal 4.2-5.4 [facility] Comment on above: Performed By: #### L 500.4050, L505.5000, L501.9985, L501.9520, L100.0100, L506.0400, L3300.3500, L500.4100 ####[facility] [address] [place], [address] RDW SD 42.2 fl Normal 35.1-43.9 [facility] Comment on above: Performed By: #### L 500.4050, L505.5000, L501.9985, L501.9520, L100.0100, L506.0400, L3300.3500, L500.4100 ####[facility] [address] [place], [address] WBC (Bld) [#/Vol] 7.3 10*3/uL Normal 4.4-11.0 [facility] Comment on above: Performed By: #### L 500.4050, L505.5000, L501.9985, L501.9520, L100.0100, L506.0400, L3300.3500, L500.4100 ####[facility] [address] [place], [address] Calculated very low density lipoprotein (VLDL) cholesterol measurementOrdered By: [facility] Lala Tate on 04-05-2025 Calculated very low density lipoprotein (VLDL) cholesterol measurement 16 mg/dL 5-40 [facility] Carbon dioxide, total [Moles /volume] in Central venous bloodOrdered By: [facility] Lala Ybarra on 04-05-2025 CO2 [Moles/Vol] 19.5 mmol/L Low 21.0-32.0 [facility] Chloride assayOrdered By: [facility] Lalayina Ybarra on 04-05-2025 Chloride [Moles/Vol] 107 mmol/L 98-108 [facility] Comprehensive Metabolic Prof ilon 04-05-2025 Albumin [Mass/Vol] 4.0 g/dL Normal 3.5-5.0 [facility] Comment on above: Performed By: #### L 500.4050, L505.5000, L501.9985, L501.9520, L100.0100, L506.0400, L3300.3500, L500.4100 ####[facility] [address] [place], [address] Albumin/Globulin [Mass ratio] 1.3 {ratio} Normal 0.9-2.4 [facility] Comment on above: Performed By: #### L 500.4050, L505.5000, L501.9985, L501.9520, L100.0100, L506.0400, L3300.3500, L500.4100 ####[facility] [address] [place], [address] ALK PHOS 76 U/L Normal 35-104 [facility] Comment on above: Performed By: #### L 500.4050, L505.5000, L501.9985, L501.9520, L100.0100, L506.0400, L3300.3500, L500.4100 ####[facility] [address] [place], [address] ALT [Catalytic activity/Vol] 14 U/L Normal <=34 [facility] Comment on above: Performed By: #### L 500.4050, L505.5000, L501.9985, L501.9520, L100.0100, L506.0400, L3300.3500, L500.4100 ####[facility] [address] [place], [address] AST [Catalytic activity/Vol] 21 U/L Normal <=31 [facility] Comment on above: Performed By: #### L 500.4050, L505.5000, L501.9985, L501.9520, L100.0100, L506.0400, L3300.3500, L500.4100 ####[facility] [address] [place], [address] Bilirubin [Mass/Vol] 0.31 mg/dL Normal 0.00-1.30 [facility] Comment on above: Performed By: #### L 500.4050, L505.5000, L501.9985, L501.9520, L100.0100, L506.0400, L3300.3500, L500.4100 ####[facility] [address] [place], [address] BUN/CRE 17.0 RATIO Normal 10-20 [facility] Comment on above: Performed By: #### L 500.4050, L505.5000, L501.9985, L501.9520, L100.0100, L506.0400, L3300.3500, L500.4100 ####[facility] [address] [place], [address] Calcium [Mass/Vol] 8.9 mg/dL Normal 7.6-11.0 [facility] Comment on above: Performed By: #### L 500.4050, L505.5000, L501.9985, L501.9520, L100.0100, L506.0400, L3300.3500, L500.4100 ####[facility] [address] [place], [address] Chloride [Moles/Vol] 107 mmol/L Normal 98-108 [facility] Comment on above: Performed By: #### L 500.4050, L505.5000, L501.9985, L501.9520, L100.0100, L506.0400, L3300.3500, L500.4100 ####[facility] [address] [place], [address] CO2 [Moles/Vol] 19.5 mmol/L Low 21.0-32.0 [facility] Comment on above: Performed By: #### L 500.4050, L505.5000, L501.9985, L501.9520, L100.0100, L506.0400, L3300.3500, L500.4100 ####[facility] [address] [place], [address] Creatinine [Mass/Vol] 0.64 mg/dL Low 0.70-1.20 [facility] Comment on above: Performed By: #### L 500.4050, L505.5000, L501.9985, L501.9520, L100.0100, L506.0400, L3300.3500, L500.4100 ####[facility] [address] [place], [address] GAP 11 Normal 5-15 [facility] Comment on above: Performed By: #### L 500.4050, L505.5000, L501.9985, L501.9520, L100.0100, L506.0400, L3300.3500, L500.4100 ####[facility] [address] [place], [address] GFR/1.73 sq M.predicted among non-blacks MDRD (S/P/Bld) [Vol rate/Area] 123 mL/min/{1.73_m2} Normal >60 [facility] Comment on above: Result Comment: mL/m in/1.73m2 CKD-EPI Creatinine Equation (2020) Performed By: #### L 500.4050, L505.5000, L501.9985, L501.9520, L100.0100, L506.0400, L3300.3500, L500.4100 ####[facility] [address] [place], [address] Globulin (S) [Mass/Vol] 3.1 g/dL Normal 2.2-4.2 [facility] Comment on above: Performed By: #### L 500.4050, L505.5000, L501.9985, L501.9520, L100.0100, L506.0400, L3300.3500, L500.4100 ####[facility] [address] [place], [address] Glucose [Mass/Vol] 92 mg/dL Normal 70-99 [facility] Comment on above: Performed By: #### L 500.4050, L505.5000, L501.9985, L501.9520, L100.0100, L506.0400, L3300.3500, L500.4100 ####[facility] [address] [place], [address] Potassium [Moles/Vol] 4.0 mmol/L Normal 3.3-5.1 [facility] Comment on above: Performed By: #### L 500.4050, L505.5000, L501.9985, L501.9520, L100.0100, L506.0400, L3300.3500, L500.4100 ####[facility] [address] [place], [address] Sodium [Moles/Vol] 138 mmol/L Normal 133-145 [facility] Comment on above: Performed By: #### L 500.4050, L505.5000, L501.9985, L501.9520, L100.0100, L506.0400, L3300.3500, L500.4100 ####[facility] [address] [place], [address] T PROT 7.1 g/dL Normal 5.9-8.4 [facility] Comment on above: Performed By: #### L 500.4050, L505.5000, L501.9985, L501.9520, L100.0100, L506.0400, L3300.3500, L500.4100 ####[facility] [address] [place], [address] Urea nitrogen [Mass/Vol] 11 mg/dL Normal 4-19 [facility] Comment on above: Performed By: #### L 500.4050, L505.5000, L501.9985, L501.9520, L100.0100, L506.0400, L3300.3500, L500.4100 ####[facility] [address] [place], [address] Eosinophil percentageOrdered By: [facility] Lala Ybarra on 04-05-2025 Eosinophils/100 WBC (Bld) 1.5 % 0-5 [facility] Erythrocyte distribution wid th ratioOrdered By: [facility] Lala Ybarra on 04-05-2025 Erythrocyte distribution width (RBC) [Ratio] 13.8 % 11.6-14.6 [facility] Erythrocyte distribution wid th standard deviationOrdered By: [facility] Lala Ybarra on 04-05-2025 Erythrocyte distribution width (RBC) [Ratio] 42.2 fl 35.1-43.9 [facility] Glomerular filtration rate ( GFR) estimation/1.73 sq m using serum, plasma, or whole bOrdered By: [facility] Lala Ybarra on 04-05-2025 GFR/1.73 sq M.predicted among non-blacks MDRD (S/P/Bld) [Vol rate/Area] 123 mL/min/{1.73_m2} >60 [facility] Comment on above: mL/min/1.73m2 CKD-EP I Creatinine Equation (2020) Hematocrit Auto (Bld) [Volum e fraction]Ordered By: [facility] Lala Ybarra on 04-05-2025 Hematocrit (Bld) [Volume fraction] 39.2 % 37-47 [facility] Hemoglobin A1con 04-05-2025 HbA1c (Bld) [Mass fraction] 5.6 % Normal <=5.6 [facility] Comment on above: Result Comment: Norm al < 5.7 % Prediabetic 5.7 - 6.4 % Diabetic >or= 6.5 % Please note range changes. Performed By: #### L 500.4050, L505.5000, L501.9985, L501.9520, L100.0100, L506.0400, L3300.3500, L500.4100 ####[facility] [address] [place], [address] Hemoglobin A1c percentageOrd ered By: [facility] Lala Ybarra on 04-05-2025 HbA1c (Bld) [Mass fraction] 5.6 % <5.7 [facility] Comment on above: Normal < 5.7 % Predi abetic 5.7 - 6.4 % Diabetic >or= 6.5 % Please note range changes. Hemoglobin measurementOrdere d By: [facility]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 Normal 0-5 [facility] Comment on above: Performed By: #### L 100.0100, L500.2500 ####[facility] [address] [place], [address] Erythrocyte distribution width (RBC) [Ratio] 13.6 % Normal 11.6-14.6 [facility] Comment on above: Performed By: #### L 100.0100, L500.2500 ####[facility] [address] [place], [address] Hematocrit (Bld) [Volume fraction] 40.1 % Normal 37-47 [facility] Comment on above: Performed By: #### L 100.0100, L500.2500 ####[facility] [address] [place], [address] Hemoglobin (Bld) [Mass/Vol] 13.3 g/dL Normal 12.0-15.0 [facility] Comment on above: Performed By: #### L 100.0100, L500.2500 ####[facility] [address] [place], [address] IG% 0.400 Normal 0.0-0.9 [facility] Comment on above: Result Comment: IG% - Immature Granulocytes (promyelocytes, myelocytes and metamyelocytes) > 1% indicates that a LEFT SHIFT is Present. Performed By: #### L 100.0100, L500.2500 ####[facility] [address] [place], [address] Lymphocytes/100 WBC (Bld) 26.8 % Normal 19-41 [facility] Comment on above: Performed By: #### L 100.0100, L500.2500 ####[facility] [address] [place], [address] MCH (RBC) [Entitic mass] 28.5 pg Normal 27.0-32.0 [facility] Comment on above: Performed By: #### L 100.0100, L500.2500 ####[facility] [address] [place], [address] MCHC (RBC) [Mass/Vol] 33.2 g/dL Normal 32-36 [facility] Comment on above: Performed By: #### L 100.0100, L500.2500 ####[facility] [address] [place], [address] MCV (RBC) [Entitic vol] 85.9 fL Normal 81-99 [facility] Comment on above: Performed By: #### L 100.0100, L500.2500 ####[facility] [address] [place], [address] Monocytes/100 WBC (Bld) 5.3 % Normal 0-10 [facility] Comment on above: Performed By: #### L 100.0100, L500.2500 ####[facility] [address] [place], [address] Neutrophils/100 WBC (Bld) 66.2 % Normal 47-70 [facility] Comment on above: Performed By: #### L 100.0100, L500.2500 ####[facility] [address] [place], [address] Nucleated RBC (Bld) [#/Vol] 0 10*3/uL Normal 0-5 [facility] Comment on above: Performed By: #### L 100.0100, L500.2500 ####[facility] [address] [place], [address] Platelet mean volume (Bld) [Entitic vol] 10.4 fL Normal 6.2-12.0 [facility] Comment on above: Performed By: #### L 100.0100, L500.2500 ####[facility] [address] [place], [address] Platelets (Bld) [#/Vol] 296 10*3/uL Normal 150-450 [facility] Comment on above: Performed By: #### L 100.0100, L500.2500 ####[facility] [address] [place], [address] RBC (Bld) [#/Vol] 4.67 10*6/uL Normal 4.2-5.4 [facility] Comment on above: Performed By: #### L 100.0100, L500.2500 ####[facility] [address] [place], [address] RDW SD 42.2 fl Normal 35.1-43.9 [facility] Comment on above: Performed By: #### L 100.0100, L500.2500 ####[facility] [address] [place], [address] WBC (Bld) [#/Vol] 8.1 10*3/uL Normal 4.4-11.0 [facility] Comment on above: Performed By: #### L 100.0100, L500.2500 ####[facility] [address] [place], [address] CBC W/Diff, Automatedon -11 29-2023 Absolute Lymph 4.34 X10 3/uL Normal 0.83-4.51 [facility] Comment on above: Performed By: #### L 500.4050, L100.0100 #### [facility] [address] [place], [address] Absolute Neut 8.9 X10 3/uL High 2.0-7.7 [facility] Comment on above: Performed By: #### L 500.4050, L100.0100 #### [facility] [address] [place], [address] Basophils/100 WBC (Bld) 0.5 % Normal 0-1 [facility] Comment on above: Performed By: #### L 500.4050, L100.0100 #### [facility] [address] [place], [address] Eosinophils/100 WBC (Bld) 1.2 % Normal 0-5 [facility] Comment on above: Performed By: #### L 500.4050, L100.0100 #### [facility] [address] [place], [address] Erythrocyte distribution width (RBC) [Ratio] 13.4 % Normal 11.6-14.6 [facility] Comment on above: Performed By: #### L 500.4050, L100.0100 #### [facility] [address] [place], [address] Hematocrit (Bld) [Volume fraction] 45.0 % Normal 37-47 [facility] Comment on above: Performed By: #### L 500.4050, L100.0100 #### [facility] [address] [place], [address] Hemoglobin (Bld) [Mass/Vol] 14.5 g/dL Normal 12.0-15.0 [facility] Comment on above: Performed By: #### L 500.4050, L100.0100 #### [facility] [address] [place], [address] IG% 1.800 High 0.0-0.9 [facility] Comment on above: Result Comment: IG% - Immature Granulocytes (promyelocytes, myelocytes and metamyelocytes) > 1% indicates that a LEFT SHIFT is Present. Performed By: #### L 500.4050, L100.0100 #### [facility] [address] [place], [address] Lymphocytes/100 WBC (Bld) 29.8 % Normal 19-41 [facility] Comment on above: Performed By: #### L 500.4050, L100.0100 #### [facility] [address] [place], [address] MCH (RBC) [Entitic mass] 27.8 pg Normal 27.0-32.0 [facility] Comment on above: Performed By: #### L 500.4050, L100.0100 #### [facility] [address] [place], [address] MCHC (RBC) [Mass/Vol] 32.2 g/dL Normal 32-36 [facility] Comment on above: Performed By: #### L 500.4050, L100.0100 #### [facility] [address] [place], [address] MCV (RBC) [Entitic vol] 86.4 fL Normal 81-99 [facility] Comment on above: Performed By: #### L 500.4050, L100.0100 #### [facility] [address] [place], [address] Monocytes/100 WBC (Bld) 5.6 % Normal 0-10 [facility] Comment on above: Performed By: #### L 500.4050, L100.0100 #### [facility] [address] [place], [address] Neutrophils/100 WBC (Bld) 61.1 % Normal 47-70 [facility] Comment on above: Performed By: #### L 500.4050, L100.0100 #### [facility] [address] [place], [address] Nucleated RBC (Bld) [#/Vol] 0 10*3/uL Normal 0-5 [facility] Comment on above: Performed By: #### L 500.4050, L100.0100 #### [facility] [address] [place], [address] Platelet mean volume (Bld) [Entitic vol] 10.5 fL Normal 6.2-12.0 [facility] Comment on above: Performed By: #### L 500.4050, L100.0100 #### [facility] [address] [place], [address] Platelets (Bld) [#/Vol] 399 10*3/uL Normal 150-450 [facility] Comment on above: Performed By: #### L 500.4050, L100.0100 #### [facility] [address] [place], [address] RBC (Bld) [#/Vol] 5.21 10*6/uL Normal 4.2-5.4 [facility] Comment on above: Performed By: #### L 500.4050, L100.0100 #### [facility] [address] [place], [address] RDW SD 41.4 fl Normal 35.1-43.9 [facility] Comment on above: Performed By: #### L 500.4050, L100.0100 #### [facility] [address] [place], [address] WBC (Bld) [#/Vol] 14.6 10*3/uL High 4.4-11.0 [facility] Comment on above: Performed By: #### L 500.4050, L100.0100 #### [facility] [address] [place] [place], [address] Comprehensive Metabolic Prof [facility] 07-19-2024 Albumin [Mass/Vol] 3.4 g/dL Normal 3.2-5.0 [facility] Comment on above: Performed By: #### L 500.4050, L100.0100 ####[facility] [address] [place], [address] Albumin/Globulin [Mass ratio] 0.8 {ratio} Low 0.9-2.4 [facility] Comment on above: Performed By: #### L 500.4050, L100.0100 ####[facility] [address] [place], [address] ALK P 73 U/L Normal 45-117 [facility] Comment on above: Performed By: #### L [id number], L100.0100 ####[facility] [address] [place], [address] ALT [Catalytic activity/Vol] 39 U/L Normal 13-56 [facility] Comment on above: Performed By: #### L [id number], L100.0100 ####[facility] [address] [place], [address] AST [Catalytic activity/Vol] 17 U/L Normal 15-37 [facility] Comment on above: Performed By: #### L [id number], L100.0100 ####[facility] [address] [place], [address] Bilirubin [Mass/Vol] 0.40 mg/dL Normal 0.20-1.00 [facility] Comment on above: Result Comment: For patients on eltrombopag therapy, use of Dimension [place] TBIL is not recommended. Performed By: #### L [id number], L100.0100 ####[facility] [address] [place], [address] BUN/CRE 26.2 RATIO High 10-20 [facility] Comment on above: Performed By: #### L [id number], L100.0100 ####[facility] [address] [place], [address] CA,Total 9.1 mg/dL Normal 8.5-10.1 [facility] Comment on above: Performed By: #### L [id number], L100.0100 ####[facility] [address] [place], [address] Chloride [Moles/Vol] 99 mmol/L Normal 98-107 [facility] Comment on above: Performed By: #### L [id number], L100.0100 ####[facility] [address] [place], [address] CO2 [Moles/Vol] 27.0 mmol/L Normal 21.0-32.0 [facility] Comment on above: Performed By: #### L [id number], L100.0100 ####[facility] [address] [place], [address] Creatinine [Mass/Vol] 0.61 mg/dL Normal 0.55-1.02 [facility] Comment on above: Result Comment: The validity of the calculated GFR GFRAA in patients over 70 years has not been determined. Clinical correlation is essential. Performed By: #### L [id number], L100.0100 ####[facility] [address] [place], [address] EST GFR - AA 150 mL/min Normal >60 [facility] Comment on above: Result Comment: Afri can Lithuanian GFR Calc Performed By: #### L [id number], L100.0100 ####[facility] [address] [place], [address] GAP 7 Normal 5-15 [facility] Comment on above: Performed By: #### L [id number], L100.0100 ####[facility] [address] [place], [address] GFR/1.73 sq M.predicted among non-blacks MDRD (S/P/Bld) [Vol rate/Area] 124 mL/min/{1.73_m2} Normal >60 [facility] Comment on above: Result Comment: Non- GFR Calc Performed By: #### L 500.4050, L100.0100 ####[facility] [address] [place], [address] Globulin (S) [Mass/Vol] 4.1 g/dL Normal 2.2-4.2 [facility] Comment on above: Performed By: #### L [id number], L100.0100 ####[facility] [address] [place], [address] Glucose [Mass/Vol] 103 mg/dL Normal 74-106 [facility] Comment on above: Result Comment: Fast ing Glucose result from 100 to 125 mg/dL suggests IMPAIRED HOMEOSTASIS per A.D.A. criteria. Performed By: #### L [id number], L100.0100 ####[facility] [address] [place], [address] Potassium [Moles/Vol] 4.2 mmol/L Normal 3.5-5.1 [facility] Comment on above: Performed By: #### L [id number], L100.0100 ####[facility] [address] [place], [address] Sodium [Moles/Vol] 133 mmol/L Low 136-145 [facility] Comment on above: Performed By: #### L [id number], L100.0100 ####[facility] [address] [place], [address] T PROT 7.5 g/dL Normal 6.4-8.2 [facility] Comment on above: Performed By: #### L [id number], L100.0100 ####[facility] [address] [place], [address] Urea nitrogen [Mass/Vol] 16 mg/dL Normal 7-18 [facility] Comment on above: Performed By: #### L [id number], L100.0100 ####[facility] [address] [place], [address] Basophil percentageOrdered B y: Cintia Mcgee on 02-03-2024 Chloride [Moles/Vol] 108 mmol/L 98-107 [facility] Glucose [Mass/Vol] 106 mg/dL 74-106 [facility] Comment on above: Fasting Glucose resu lt from 100 to 125 mg/dL suggests IMPAIRED HOMEOSTASIS per A.D.A. criteria. Potassium [Moles/Vol] 3.5 mmol/L 3.5-5.1 [facility] Sodium [Moles/Vol] 140 mmol/L 136-145 [facility] Laboratory - Chemistry and C hemistry - challengeOrdered By: Cintia Mcgee on 02-03-2024 CO2 [Moles/Vol] 28.0 mmol/L 21.0-32.0 [facility] Urea nitrogen/Creatinine [Mass ratio] 17.7 mg/mg 10-20 [facility] No Panel InformationOrdered By: Cintia Mcgee on 02-03-2024 Estimated GFR (MDRD) Amer 121 mL/min >60 [facility] Comment on above: GFR Calc Estimated GFR (MDRD) Non-Af Amer 100 mL/min >60 [facility] Comment on above: Non- GFR Calc Serum or plasma calcium raad urement (mass/volume)Ordered By: Cintia Mcgee on 02-03-2024 Calcium [Mass/Vol] 8.8 mg/dL 8.5-10.1 [facility] Serum or plasma creatinine m easurement (mass/volume)Ordered By: Cintia Mcgee on 02-03-2024 Creatinine [Mass/Vol] 0.74 mg/dL 0.55-1.02 [facility] Comment on above: The validity of the calculated GFR & GFRAA in patients over 70 years has not been determined. Clinical correlation is essential. Serum or plasma urea nitroge n measurement (mass/volume)Ordered By: Cintia Mcgee on 02-03-2024 Urea nitrogen [Mass/Vol] 13 mg/dL 7-18 [facility] Thin prep Papanicolaou smear with manual screeningOrdered By: Cintia Mcgee on 02-03-2024 Thin prep Papanicolaou smear with manual screening 4 5-15 [facility] Laboratory - Chemistry and C hemistry - challengeOrdered By: Cintia Mcgee on 09-10-2023 Free T4 [Mass/Vol] 1.00 ng/dL 0.76-1.46 [facility] No Panel InformationOrdered By: Cintia Mcgee on 09-10-2023 Thyroid Stimulating Hormone (TSH) 1.51 uIU/mL 0.358-3.74 [facility] Serum or plasma ferritin thierno surement (mass/volume)Ordered By: Cintia Mcgee on 09-10-2023 Ferritin [Mass/Vol] 64 ng/mL 8 [facility] Absolute lymphocyte countOrd ered By: HEALTH ASSESSMENT on 06-18-2023 Lymphocytes Auto (Unsp spec) [#/Vol] 2.68 10*3/uL 0.83-4.51 [facility] Absolute reticulocyte countO rdered By: HEALTH ASSESSMENT on 06-18-2023 Reticulocytes (Bld) [#/Vol] 0.00 10*3/uL 0-5 [facility] Basophil percentageOrdered B y: HEALTH ASSESSMENT on 06-18-2023 Basophil percentage 3.9 mg/dL 2.5-4.9 [facility] Bilirubin [Mass/Vol] 0.20 mg/dL 0.20-1.00 [facility] Comment on above: For patients on eltr ombopag therapy, use of Dimension [place] TBIL is not recommended. Chloride [Moles/Vol] 111 mmol/L 98-107 [facility] Cholesterol [Mass/Vol] 133 mg/dL <200 [facility] Comment on above: <200 mg/dL Desirable 200-240 mg/dL Borderline >240 mg/dL High Risk Glucose [Mass/Vol] 119 mg/dL 74-106 [facility] Comment on above: Fasting Glucose resu lt from 100 to 125 mg/dL suggests IMPAIRED HOMEOSTASIS per A.D.A. criteria. LDH [Catalytic activity/Vol] 159 U/L 84-246 [facility] Neutrophils (Bld) [#/Vol] 3.1 10*3/uL 2.0-7.7 [facility] Potassium [Moles/Vol] 3.8 mmol/L 3.5-5.1 [facility] Protein [Mass/Vol] 6.8 g/dL 6.4-8.2 [facility] Sodium [Moles/Vol] 142 mmol/L 136-145 [facility] Triglyceride [Mass/Vol] 115 mg/dL <199 [facility] Comment on above: The drugs N-Acetylcy steine and Metamizole may falsely depress this assay.Serum Triglycerides Reference Interval Normal <150 mg/dL Borderline high 150 - 199 mg/dL High 200 - 499 mg/dL Very High > or = 500 mg/dL WBC (Bld) [#/Vol] 6.4 10*3/uL 4.4-11.0 [facility] Bilirubin Test strip Ql (U)O rdered By: HEALTH ASSESSMENT on 06-18-2023 Bilirubin Ql (U) Negative Negative [facility] Blood erythrocytes count (nu mber/volume)Ordered By: HEALTH ASSESSMENT on 06-18-2023 RBC (Bld) [#/Vol] 4.59 10*6/uL 4.2-5.4 [facility] Blood hemoglobin measurement (mass/volume)Ordered By: HEALTH ASSESSMENT on 06-18-2023 Hemoglobin (Bld) [Mass/Vol] 12.9 g/dL 12.0-15.0 [facility] Blood platelet mean volumeOr dered By: HEALTH ASSESSMENT on 06-18-2023 Platelet mean volume (Bld) [Entitic vol] 10.6 fL 6.2-12.0 [facility] Determination of erythrocyte mean corpuscular volume (MCV)Ordered By: HEALTH ASSESSMENT on 06-18-2023 MCV (RBC) [Entitic vol] 87.6 fL 81-99 [facility] Direct bilirubinOrdered By: HEALTH ASSESSMENT on 06-18-2023 Bilirubin.direct [Mass/Vol] 0.09 mg/dL 0.00-0.30 [facility] Hematocrit Auto (Bld) [Volum e fraction]Ordered By: HEALTH ASSESSMENT on 06-18-2023 Hematocrit (Bld) [Volume fraction] 40.2 % 37-47 [facility] Ketones Test strip Ql (U)Ord ered By: HEALTH ASSESSMENT on 06-18-2023 Ketones Ql (U) Negative Negative [facility] Laboratory - Chemistry and C hemistry - challengeOrdered By: HEALTH ASSESSMENT on 06-18-2023 ALP [Catalytic activity/Vol] 66 U/L 45-117 [facility] ALT [Catalytic activity/Vol] 21 U/L 13-56 [facility] Cholesterol.total/Dotty sterol in HDL [Mass ratio] 2.40 {ratio} [facility] CO2 [Moles/Vol] 25.0 mmol/L 21.0-32.0 [facility] Globulin (S) [Mass/Vol] 3.8 g/dL 2.2-4.2 [facility] Urea nitrogen/Creatinine [Mass ratio] 15.8 mg/mg 10-20 [facility] Laboratory - Hematology and Cell countsOrdered By: HEALTH ASSESSMENT on 06-18-2023 Erythrocyte distribution width (RBC) [Entitic vol] 42.5 fL 35.1-43.9 [facility] Erythrocyte distribution width (RBC) [Ratio] 13.3 % 11.6-14.6 [facility] MCH (RBC) [Entitic mass] 28.1 pg 27.0-32.0 [facility] Nucleated RBC/100 WBC (Bld) [Ratio] 0 % 0-5 [facility] MCHC Auto (RBC) [Mass/Vol]Or dered By: HEALTH ASSESSMENT on 06-18-2023 MCHC (RBC) [Mass/Vol] 32.1 g/dL 32-36 [facility] Nitrite Test strip Ql (U)Ord ered By: HEALTH ASSESSMENT on 06-18-2023 Nitrite Ql (U) Negative Negative [facility] No Panel InformationOrdered By: HEALTH ASSESSMENT on 06-18-2023 Estimated GFR (MDRD) Amer 130 mL/min >60 [facility] Comment on above: GFR Calc Estimated GFR (MDRD) Non-Af Amer 107 mL/min >60 [facility] Comment on above: Non- GFR Calc Platelets bldOrdered By: ALEX LT ASSESSMENT on 06-18-2023 Platelets (Bld) [#/Vol] 314 10*3/uL 150-450 [facility] Protein Test strip Ql (U)Ord ered By: HEALTH ASSESSMENT on 06-18-2023 Protein Ql (U) Negative Negative [facility] Segmented neutrophils/100 WB C Auto (Bld)Ordered By: HEALTH ASSESSMENT on 06-18-2023 Segmented neutrophils/100 WBC (Bld) 48.3 % 47-70 [facility] Serum or plasma albumin raad urement (mass/volume)Ordered By: HEALTH ASSESSMENT on 06-18-2023 Albumin [Mass/Vol] 3.0 g/dL 3.2-5.0 [facility] Serum or plasma albumin/glob ulin mass ratioOrdered By: HEALTH ASSESSMENT on 06-18-2023 Albumin/Globulin [Mass ratio] 0.8 {ratio} 0.9-2.4 [facility] Serum or plasma calcium raad urement (mass/volume)Ordered By: HEALTH ASSESSMENT on 06-18-2023 Calcium [Mass/Vol] 8.6 mg/dL 8.5-10.1 [facility] Serum or plasma cholesterol in HDL measurement (mass/volume)Ordered By: HEALTH ASSESSMENT on 06-18-2023 Cholesterol in HDL [Mass/Vol] 56 mg/dL >40 [facility] Comment on above: The drugs N-Acetylcy steine and Metamizole may falsely depress this assay. Reference Range HDL <40 mg/dL Low HDL Cholesterol HDL >or= 60 mg/dL High HDL Cholesterol Serum or plasma cholesterol in VLDL measurement (mass/volume)Ordered By: HEALTH ASSESSMENT on 06-18-2023 Cholesterol in VLDL [Mass/Vol] 23 mg/dL 5-40 [facility] Serum or plasma creatinine m easurement (mass/volume)Ordered By: HEALTH ASSESSMENT on 06-18-2023 Creatinine [Mass/Vol] 0.70 mg/dL 0.55-1.02 [facility] Comment on above: The validity of the calculated GFR & GFRAA in patients over 70 years has not been determined. Clinical correlation is essential. Serum or plasma low density lipoprotein (LDL) cholesterol measurement (mass/volume)Ordered By: HEALTH ASSESSMENT on 06-18-2023 Cholesterol in LDL [Mass/Vol] 54 mg/dL 0-130 [facility] Serum or plasma urea nitroge n measurement (mass/volume)Ordered By: HEALTH ASSESSMENT on 06-18-2023 Urea nitrogen [Mass/Vol] 11 mg/dL 7-18 [facility] Serum or plasma uric acid me asurement (mass/volume)Ordered By: HEALTH ASSESSMENT on 06-18-2023 Urate [Mass/Vol] 4.6 mg/dL 2.6-6.0 [facility] Comment on above: The drugs N-Acetylcy steine and Metamizole may falsely depress this assay. Thin prep Papanicolaou smear with manual screeningOrdered By: HEALTH ASSESSMENT on 06-18-2023 Thin prep Papanicolaou smear with manual screening 10 U/L 15-37 [facility] Thin prep Papanicolaou smear with manual screening 6 5-15 [facility] Urine blood detectionOrdered By: HEALTH ASSESSMENT on 06-18-2023 RBC Ql (U) 10 /ul Negative [facility] Urine clarityOrdered By: HEA LTH ASSESSMENT on 06-18-2023 Clarity (U) Clear Clear [facility] Urine color determinationOrd ered By: HEALTH ASSESSMENT on 06-18-2023 Color (U) Yellow Yellow [facility] Urine glucose detectionOrder ed By: HEALTH ASSESSMENT on 06-18-2023 Glucose Ql (U) Normal mg/dl Normal [facility] Urine leukocyte esterase det ection by dipstickOrdered By: HEALTH ASSESSMENT on 06-18-2023 Leukocyte esterase Test strip Ql (U) 500 /ul Negative [facility] Urine pHOrdered By: HEALTH A SSESSMENT on 06-18-2023 pH (U) 6.5 [pH] 5.0 - 8.0 [facility] Urine specific gravity measu rementOrdered By: HEALTH ASSESSMENT on 06-18-2023 Specific gravity (U) [Rel density] 1.015 1.002-1.03 0 [facility] Urobilinogen Auto test strip Ql (U)Ordered By: HEALTH ASSESSMENT on 06-18-2023 Urobilinogen Ql (U) Normal mg/dl Normal [facility] Absolute lymphocyte countOrd ered By: Dr. Mcgee on 01-27-2023 Lymphocytes Auto (Unsp spec) [#/Vol] 2.06 10*3/uL 0.83-4.51 [facility] Basophil percentageOrdered B y: Dr. Mcgee on 01-27-2023 Basophils/100 WBC (Bld) 0.5 % 0-1 [facility] Bilirubin [Mass/Vol] 0.30 mg/dL 0.20-1.00 [facility] Comment on above: For patients on eltr ombopag therapy, use of Dimension [place] TBIL is not recommended. Chloride [Moles/Vol] 107 mmol/L 98-107 [facility] Eosinophils/100 WBC (Bld) 1.4 % 0-5 [facility] Glucose [Mass/Vol] 99 mg/dL 74-106 [facility] Neutrophils (Bld) [#/Vol] 4.7 10*3/uL 2.0-7.7 [facility] Neutrophils/100 WBC (Bld) 64.1 % 47-70 [facility] Potassium [Moles/Vol] 3.8 mmol/L 3.5-5.1 [facility] Protein [Mass/Vol] 6.9 g/dL 6.4-8.2 [facility] Sodium [Moles/Vol] 136 mmol/L 136-145 [facility] WBC (Bld) [#/Vol] 7.3 10*3/uL 4.4-11.0 [facility] Blood erythrocytes count (nu mber/volume)Ordered By: Dr. Mcgee on 01-27-2023 RBC (Bld) [#/Vol] 4.52 10*6/uL 4.2-5.4 [facility] Blood hemoglobin measurement (mass/volume)Ordered By: Dr. Mcgee on 01-27-2023 Hemoglobin (Bld) [Mass/Vol] 12.8 g/dL 12.0-15.0 [facility] Blood lymphocytes/100 leukoc ytesOrdered By: Dr. Mcgee on 01-27-2023 Lymphocytes/100 WBC (Bld) 28.2 % 19-41 [facility] Blood monocytes/100 leukocyt esOrdered By: Dr. Mcgee on 01-27-2023 Monocytes/100 WBC (Bld) 5.5 % 0-10 [facility] Blood platelet mean volumeOr dered By: Dr. Mcgee on 01-27-2023 Platelet mean volume (Bld) [Entitic vol] 10.9 fL 6.2-12.0 [facility] Determination of erythrocyte mean corpuscular volume (MCV)Ordered By: Dr. Mcgee on 01-27-2023 MCV (RBC) [Entitic vol] 86.7 fL 81-99 [facility] Hematocrit Auto (Bld) [Volum e fraction]Ordered By: Dr. Mcgee on 01-27-2023 Hematocrit (Bld) [Volume fraction] 39.2 % 37-47 [facility] Laboratory - Chemistry and C hemistry - challengeOrdered By: Dr. Mcgee on 01-27-2023 ALP [Catalytic activity/Vol] 70 U/L 45-117 [facility] ALT [Catalytic activity/Vol] 24 U/L 13-56 [facility] CO2 [Moles/Vol] 25.0 mmol/L 21.0-32.0 [facility] Globulin (S) [Mass/Vol] 3.6 g/dL 2.2-4.2 [facility] Urea nitrogen/Creatinine [Mass ratio] 27.2 mg/mg 10-20 [facility] Laboratory - Hematology and Cell countsOrdered By: Dr. Mcgee on 01-27-2023 Erythrocyte distribution width (RBC) [Entitic vol] 42.1 fL 35.1-43.9 [facility] Erythrocyte distribution width (RBC) [Ratio] 13.5 % 11.6-14.6 [facility] Immature granulocytes/100 WBC (Bld) 0.300 % 0.0-0.9 [facility] Comment on above: IG% - Immature Granu locytes (promyelocytes, myelocytes and metamyelocytes) > 1% indicates that a LEFT SHIFT is Present. MCH (RBC) [Entitic mass] 28.3 pg 27.0-32.0 [facility] Nucleated RBC/100 WBC (Bld) [Ratio] 0 % 0-5 [facility] MCHC Auto (RBC) [Mass/Vol]Or dered By: Dr. Mcgee on 01-27-2023 MCHC (RBC) [Mass/Vol] 32.7 g/dL 32-36 [facility] No Panel InformationOrdered By: Dr. Mcgee on 01-27-2023 Estimated GFR (MDRD) Amer 158 mL/min >60 [facility] Comment on above: GFR Calc Estimated GFR (MDRD) Non-Af Amer 131 mL/min >60 [facility] Comment on above: Non- GFR Calc Thyroid Stimulating Hormone (TSH) 2.10 uIU/mL 0.358-3.74 [facility] Platelets bldOrdered By: Dr. Mcgee on 01-27-2023 Platelets (Bld) [#/Vol] 293 10*3/uL 150-450 [facility] Serum or plasma albumin raad urement (mass/volume)Ordered By: Dr. Mcgee on 01-27-2023 Albumin [Mass/Vol] 3.3 g/dL 3.2-5.0 [facility] Serum or plasma albumin/glob ulin mass ratioOrdered By: Dr. Mcgee on 01-27-2023 Albumin/Globulin [Mass ratio] 0.9 {ratio} 0.9-2.4 [facility] Serum or plasma calcium raad urement (mass/volume)Ordered By: Dr. Mcgee on 01-27-2023 Calcium [Mass/Vol] 8.6 mg/dL 8.5-10.1 [facility] Serum or plasma creatinine m easurement (mass/volume)Ordered By: Dr. Mcgee on 01-27-2023 Creatinine [Mass/Vol] 0.59 mg/dL 0.55-1.02 [facility] Comment on above: The validity of the calculated GFR & GFRAA in patients over 70 years has not been determined. Clinical correlation is essential. Serum or plasma thyroperoxid ase antibody assay (units/volume)Ordered By: Dr. Mcgee on 01-27-2023 TPO Ab Qn 10 [IU]/mL 0-34 [facility] Comment on above: Performed at: [place] [id number] Director: Roque Soriano PhD, Phone: [phone] Serum or plasma urea nitroge n measurement (mass/volume)Ordered By: Dr. Mcgee on 01-27-2023 Urea nitrogen [Mass/Vol] 16 mg/dL 7-18 [facility] Thin prep Papanicolaou smear with manual screeningOrdered By: Dr. Mcgee on 01-27-2023 Thin prep Papanicolaou smear with manual screening 13 U/L 15-37 [facility] Thin prep Papanicolaou smear with manual screening 4 5-15 [facility] Influenza virus A and B and SARS-CoV-2 (COVID-19) Ag panel - Upper respiratory specimOrdered By: Dr. Alves on 09-30-2022 SARS-CoV-2 & FLU Antigen (Rapid) Influenzae A [facility] RSV Ag EIAOrdered By: Dr. Sun martínez on 09-30-2022 RSV Ag Immune stain Ql (Tiss) [facility] Serum or plasma progesterone measurement (mass/volume)Ordered By: Cari Holman on 09-23-2022 Progesterone [Mass/Vol] 2.87 ng/mL See Comment [facility] Comment on above: Progesterone Referen ce Table: UNITS Female: Follicular 0.15 - 1.40 ng/mL Luteal 3.34 - 25.56 ng/mL Mid-luteal 4.44 - 28.03 ng/mL Postmenopausal 0.0 - 0.73 ng/mL : 1st Trimester 11.22 - 90.00 ng/mL 2nd Trimester 25.55 - 89.40 ng/mL 3rd Trimester 48.40 -422.50 ng/mL No Panel Informationon 08-25 POC Bacterial Vaginitis (Rapid) Negative [facility] Work Phone: Serum or plasma prolactin me asurement (mass/volume)on 08-25-2022 Prolactin [Mass/Vol] 15.5 ng/mL [facility] Work Phone: Comment on above: NORMAL REFERENCE RAN GES FEMALE NON- 2.2 - 30.3 ng/mL 8.1 - 347.6 ng/mL POST-MENOPAUSAL 0.7 - 31.5 ng/mL MALE 2.5 - 17.4 ng/mL No Panel Informationon 07-30 Dehydroepiandrosterone Sulfate 222.0 ug/dL 84.8-378.0 [facility] Work Phone: Miscellaneous Test See comment [facility] Work Phone: Comment on above: Sent directly to [facility] per ordering physician. Serum or plasma prolactin me asurement (mass/volume)on 07-30-2022 Prolactin [Mass/Vol] 43.7 ng/mL [facility] Work Phone: Comment on above: NORMAL REFERENCE RAN GES FEMALE NON- 2.2 - 30.3 ng/mL 8.1 - 347.6 ng/mL POST-MENOPAUSAL 0.7 - 31.5 ng/mL MALE 2.5 - 17.4 ng/mL Serum or plasma testosterone free measurement (mass/volume)on 07-30-2022 Testosterone Free [Mass/Vol] 1.2 pg/mL 0.0-4.2 [facility] Work Phone: Comment on above: Performed at: [facility] [place]uel orta [address] [id number] Director: Roque Soriano PhD, Phone: [phone] at: [facility] [place]Whitney [place] [id number] Director: Stefano Lopez MD, Phone: [phone] Absolute lymphocyte counton 07-08-2022 Lymphocytes Auto (Unsp spec) [#/Vol] 2.12 10*3/uL 0.83-4.51 [facility] Work Phone: [phone] Absolute reticulocyte counto n 07-08-2022 Reticulocytes (Bld) [#/Vol] 0.00 10*3/uL 0-5 [facility] Work Phone: Basophil percentageon 2021 Basophil percentage 3.5 mg/dL 2.5-4.9 [facility] Work Phone: [phone] Bilirubin [Mass/Vol] 0.40 mg/dL 0.20-1.00 [facility] Work Phone: [phone] Comment on above: For patients on eltr ombopag therapy, use of Dimension [place] TBIL is not recommended. Chloride [Moles/Vol] 105 mmol/L 98-107 [facility] Work Phone: [phone] Cholesterol [Mass/Vol] 143 mg/dL <200 [facility] Work Phone: [phone] Comment on above: <200 mg/dL Desirable 200-240 mg/dL Borderline >240 mg/dL High Risk Glucose [Mass/Vol] 95 mg/dL 74-106 [facility] Work Phone: [phone] Neutrophils (Bld) [#/Vol] 3.0 10*3/uL 2.0-7.7 [facility] Work Phone: [phone] Potassium [Moles/Vol] 3.6 mmol/L 3.5-5.1 [facility] Work Phone: [phone] Protein [Mass/Vol] 7.1 g/dL 6.4-8.2 [facility] Work Phone: [phone] Sodium [Moles/Vol] 139 mmol/L 136-145 [facility] Work Phone: [phone] Triglyceride [Mass/Vol] 69 mg/dL <199 [facility] Work Phone: Comment on above: The drugs N-Acetylcy steine and Metamizole may falsely depress this assay.Serum Triglycerides Reference Interval Normal <150 mg/dL Borderline high 150 - 199 mg/dL High 200 - 499 mg/dL Very High > or = 500 mg/dL WBC (Bld) [#/Vol] 5.6 10*3/uL 4.4-11.0 [facility] Work Phone: Bilirubin Test strip Ql (U)o n 07-08-2022 Bilirubin Ql (U) Negative Negative [facility] Work Phone: Blood erythrocytes count (nu mber/volume)on 07-08-2022 RBC (Bld) [#/Vol] 4.73 10*6/uL 4.2-5.4 [facility] Work Phone: Blood hemoglobin measurement (mass/volume)on 07-08-2022 Hemoglobin (Bld) [Mass/Vol] 13.2 g/dL 12.0-15.0 [facility] Work Phone: Blood platelet mean volumeon 07-08-2022 Platelet mean volume (Bld) [Entitic vol] 11.0 fL 6.2-12.0 [facility] Work Phone: Determination of erythrocyte mean corpuscular volume (MCV)on 07-08-2022 MCV (RBC) [Entitic vol] 86.0 fL 81-99 [facility] Work Phone: Direct bilirubinon Bilirubin.direct [Mass/Vol] 0.10 mg/dL 0.00-0.30 [facility] Work Phone: Hematocrit Auto (Bld) [Volum e fraction]on 07-08-2022 Hematocrit (Bld) [Volume fraction] 40.7 % 37-47 [facility] Work Phone: Iron measurement (mass/mass) on 07-08-2022 Iron (Unsp spec) [Mass/Mass] 65 ug/dL 50-170 [facility] Work Phone: Ketones Test strip Ql (U)on 07-08-2022 Ketones Ql (U) 5 mg/dl Negative [facility] Work Phone: [phone] Laboratory - Chemistry and C hemistry - challengeon 07-08-2022 Cobalamin (Vitamin B12) [Mass/Vol] 725 pg/mL 211-911 [facility] Work Phone: Free T4 [Mass/Vol] 1.03 ng/dL 0.76-1.46 [facility] Work Phone: ALP [Catalytic activity/Vol] 73 U/L 45-117 [facility] Work Phone: ALT [Catalytic activity/Vol] 23 U/L 13-56 [facility] Work Phone: Cholesterol.total/Dotty sterol in HDL [Mass ratio] 2.60 {ratio} [facility] Work Phone: CO2 [Moles/Vol] 27.0 mmol/L 21.0-32.0 [facility] Work Phone: Globulin (S) [Mass/Vol] 3.7 g/dL 2.2-4.2 [facility] Work Phone: Urea nitrogen/Creatinine [Mass ratio] 25.0 mg/mg 10-20 [facility] Work Phone: Laboratory - Hematology and Cell countson 07-08-2022 Erythrocyte distribution width (RBC) [Entitic vol] 41.9 fL 35.1-43.9 [facility] Work Phone: Erythrocyte distribution width (RBC) [Ratio] 13.3 % 11.6-14.6 [facility] Work Phone: MCH (RBC) [Entitic mass] 27.9 pg 27.0-32.0 [facility] Work Phone: Nucleated RBC/100 WBC (Bld) [Ratio] 0 % 0-5 [facility] Work Phone: MCHC Auto (RBC) [Mass/Vol]on 07-08-2022 MCHC (RBC) [Mass/Vol] 32.4 g/dL 32-36 [facility] Work Phone: Nitrite Test strip Ql (U)on 07-08-2022 Nitrite Ql (U) Negative Negative [facility] Work Phone: No Panel Informationon 07-08 Thyroid Stimulating Hormone (TSH) 2.03 uIU/mL 0.358-3.74 [facility] Work Phone: Vitamin D 25-Hydroxy 27.3 ng/mL [facility] Work Phone: Comment on above: Vitamin D 25(OH) Sta tus Range Deficiency <20 ng/mL (50nmol/L) Insufficiency 20 - 30 ng/mL (50 - 75 nmol/L) Sufficiency 30 - 100 ng/mL (75 - 250 nmol/L) Toxicity >100 ng/mL (>250 nmol/L) Estimated GFR (MDRD) Amer 155 mL/min >60 [facility] Work Phone: Comment on above: GFR Calc Estimated GFR (MDRD) Non-Af Amer 128 mL/min >60 [facility] Work Phone: Comment on above: Non- GFR Calc Platelets bldon 07-08-2022 Platelets (Bld) [#/Vol] 293 10*3/uL 150-450 [facility] Work Phone: Protein Test strip Ql (U)on 07-08-2022 Protein Ql (U) 15 mg/dl Negative [facility] Work Phone: Segmented neutrophils/100 WB C Auto (Bld)on 07-08-2022 Segmented neutrophils/100 WBC (Bld) 52.5 % 47-70 [facility] Work Phone: Serum or plasma albumin raad urement (mass/volume)on 07-08-2022 Albumin [Mass/Vol] 3.4 g/dL 3.2-5.0 [facility] Work Phone: Serum or plasma albumin/glob ulin mass ratioon 07-08-2022 Albumin/Globulin [Mass ratio] 0.9 {ratio} 0.9-2.4 [facility] Work Phone: Serum or plasma calcium raad urement (mass/volume)on 07-08-2022 Calcium [Mass/Vol] 8.8 mg/dL 8.5-10.1 [facility] Work Phone: Serum or plasma cholesterol in HDL measurement (mass/volume)on 07-08-2022 Cholesterol in HDL [Mass/Vol] 55 mg/dL >40 [facility] Work Phone: Comment on above: The drugs N-Acetylcy steine and Metamizole may falsely depress this assay. Reference Range HDL <40 mg/dL Low HDL Cholesterol HDL >or= 60 mg/dL High HDL Cholesterol Serum or plasma cholesterol in VLDL measurement (mass/volume)on 07-08-2022 Cholesterol in VLDL [Mass/Vol] 14 mg/dL 5-40 [facility] Work Phone: Serum or plasma cortisol thierno surement (mass/volume)on 07-08-2022 Cortisol [Mass/Vol] 17.50 ug/dL 3.44-22.45 [facility] Work Phone: Comment on above: Adult (AM) 5.27 - 22 .45 ug/dL Adult (PM) 3.44 - 16.76 ug/dLPlease note revised CORTISOL reference range effective 2019. Serum or plasma creatinine m easurement (mass/volume)on 07-08-2022 Creatinine [Mass/Vol] 0.60 mg/dL 0.55-1.02 [facility] Work Phone: Comment on above: The validity of the calculated GFR & GFRAA in patients over 70 years has not been determined. Clinical correlation is essential. Serum or plasma ferritin thierno surement (mass/volume)on 07-08-2022 Ferritin [Mass/Vol] 41 ng/mL 8-252 [facility] Work Phone: Serum or plasma low density lipoprotein (LDL) cholesterol measurement (mass/volume)on 07-08-2022 Cholesterol in LDL [Mass/Vol] 74 mg/dL 0-130 [facility] Work Phone: Serum or plasma urea nitroge n measurement (mass/volume)on 07-08-2022 Urea nitrogen [Mass/Vol] 15 mg/dL 7-18 [facility] Work Phone: [phone] Serum or plasma uric acid me asurement (mass/volume)on 07-08-2022 Urate [Mass/Vol] 4.9 mg/dL 2.6-6.0 [facility] Work Phone: Comment on above: The drugs N-Acetylcy steine and Metamizole may falsely depress this assay. Thin prep Papanicolaou smear with manual screeningon 07-08-2022 Thin prep Papanicolaou smear with manual screening 13 U/L 15-37 [facility] Work Phone: Thin prep Papanicolaou smear with manual screening 7 5-15 [facility] Work Phone: Thin prep Papanicolaou smear with manual screening 188 U/L 84-246 [facility] Work Phone: [phone] Urine blood detectionon 06-26 RBC Ql (U) 10 /ul Negative [facility] Work Phone: [phone] Urine clarityon 07-08-2022 Clarity (U) Sl. Cloudy Clear [facility] Work Phone: Urine color determinationon 07-08-2022 Color (U) Yellow Yellow [facility] Work Phone: Urine glucose detectionon Glucose Ql (U) Normal mg/dl Normal [facility] Work Phone: Urine leukocyte esterase det ection by dipstickon 07-08-2022 Leukocyte esterase Test strip Ql (U) 25 /ul Negative [facility] Work Phone: Urine pHon 07-08-2022 pH (U) 6.0 [pH] 5.0 - 8.0 [facility] Work Phone: [phone] Urine specific gravity measu rementon 07-08-2022 Specific gravity (U) [Rel density] 1.025 1.002-1.03 0 [facility] Work Phone: Urobilinogen Auto test strip Ql (U)on 07-08-2022 Urobilinogen Ql (U) Normal mg/dl Normal [facility] Work Phone: Serum or plasma choriogonado tropin detectionon 04-16-2022 HCG ( test) Ql < 1 mIU/mL <4 [facility] Work Phone: Comment on above: hCG levels with Gest ational AgeGestational Age hCG mIU/mL (IU/L)0.2 - 1 week 5 - 501-2 weeks 50 - 5002-3 weeks 100 - 63099-6 weeks 500 - 478299-3 weeks 1000 - 314324-6 weeks 02828 - 100,0006-8 weeks 18924 - 200,0002-3 months 49536 - 100,000 Basophil percentageon 2021 Chloride [Moles/Vol] 106 mmol/L 98-107 [facility] Work Phone: Glucose [Mass/Vol] 113 mg/dL 74-106 [facility] Work Phone: Comment on above: Fasting Glucose resu lt from 100 to 125 mg/dL suggests IMPAIRED HOMEOSTASIS per A.D.A. criteria. Potassium [Moles/Vol] 3.4 mmol/L 3.5-5.1 [facility] Work Phone: Sodium [Moles/Vol] 139 mmol/L 136-145 [facility] Work Phone: WBC (Bld) [#/Vol] 8.4 10*3/uL 4.4-11.0 [facility] Work Phone: Blood erythrocytes count (nu mber/volume)on 03-06-2022 RBC (Bld) [#/Vol] 4.37 10*6/uL 4.2-5.4 [facility] Work Phone: Blood hemoglobin measurement (mass/volume)on 03-06-2022 Hemoglobin (Bld) [Mass/Vol] 12.4 g/dL 12.0-15.0 [facility] Work Phone: Blood platelet mean volumeon 03-06-2022 Platelet mean volume (Bld) [Entitic vol] 11.0 fL 6.2-12.0 [facility] Work Phone: [phone] Determination of erythrocyte mean corpuscular volume (MCV)on 03-06-2022 MCV (RBC) [Entitic vol] 85.6 fL 81-99 [facility] Work Phone: [phone] Erythrocyte sedimentation ra rosanne 03-06-2022 ESR (Bld) [Velocity] 26 mm/h 0-30 [facility] Work Phone: [phone] Hematocrit Auto (Bld) [Volum e fraction]on 03-06-2022 Hematocrit (Bld) [Volume fraction] 37.4 % 37-47 [facility] Work Phone: [phone] Laboratory - Chemistry and C hemistry - challengeon 03-06-2022 CO2 [Moles/Vol] 25.0 mmol/L 21.0-32.0 [facility] Work Phone: Magnesium [Mass/Vol] 2.1 mg/dL 1.6-2.6 [facility] Work Phone: [phone] Urea nitrogen/Creatinine [Mass ratio] 20.1 mg/mg 10-20 [facility] Work Phone: Laboratory - Hematology and Cell countson 03-06-2022 Erythrocyte distribution width (RBC) [Entitic vol] 41.5 fL 35.1-43.9 [facility] Work Phone: [phone] Erythrocyte distribution width (RBC) [Ratio] 13.3 % 11.6-14.6 [facility] Work Phone: [phone] MCH (RBC) [Entitic mass] 28.4 pg 27.0-32.0 [facility] Work Phone: MCHC Auto (RBC) [Mass/Vol]on 03-06-2022 MCHC (RBC) [Mass/Vol] 33.2 g/dL 32-36 [facility] Work Phone: [phone] No Panel Informationon 03-06 Estimated GFR (MDRD) Amer 143 mL/min >60 [facility] Work Phone: Comment on above: GFR Calc Estimated GFR (MDRD) Non-Af Amer 118 mL/min >60 [facility] Work Phone: Comment on above: Non- GFR Calc Platelets bldon 03-06-2022 Platelets (Bld) [#/Vol] 342 10*3/uL 150-450 [facility] Work Phone: Serum or plasma calcium raad urement (mass/volume)on 03-06-2022 Calcium [Mass/Vol] 8.9 mg/dL 8.5-10.1 [facility] Work Phone: Serum or plasma creatinine m easurement (mass/volume)on 03-06-2022 Creatinine [Mass/Vol] 0.65 mg/dL 0.55-1.02 [facility] Work Phone: Comment on above: The validity of the calculated GFR & GFRAA in patients over 70 years has not been determined. Clinical correlation is essential. Serum or plasma urea nitroge n measurement (mass/volume)on 03-06-2022 Urea nitrogen [Mass/Vol] 13 mg/dL 7-18 [facility] Work Phone: Thin prep Papanicolaou smear with manual screeningon 03-06-2022 Thin prep Papanicolaou smear with manual screening 8 5-15 [facility] Work Phone: No Panel Informationon 11-25 D-Dimer Quantitative (PE/DVT) 0.55 FEU/ug/m 0.27-0.49 [facility] Work Phone: Comment on above: D-Dimer ELEVATED (>0 .49): Additional studies and clinicalassessments are indicated to conclude diagnosis of:Deep Vein Thrombosis (DVT) or Pulmonary Embolism (PE)RESULTS CALLED TO Emory JOHNSON RN P 11/25/21 1251 Darlene Lundy.REPORT READ BACK BY SAME. Absolute lymphocyte counton 11-21-2021 Lymphocytes Auto (Unsp spec) [#/Vol] 2.70 10*3/uL 0.83-4.51 [facility] Work Phone: Basophil percentageon 2021 Basophils/100 WBC (Bld) 0.2 % 0-1 [facility] Work Phone: Chloride [Moles/Vol] 105 mmol/L 98-107 [facility] Work Phone: Eosinophils/100 WBC (Bld) 0.9 % 0-5 [facility] Work Phone: Glucose [Mass/Vol] 106 mg/dL 74-106 [facility] Work Phone: Comment on above: Fasting Glucose resu lt from 100 to 125 mg/dL suggests IMPAIRED HOMEOSTASIS per A.D.A. criteria. Neutrophils (Bld) [#/Vol] 5.2 10*3/uL 2.0-7.7 [facility] Work Phone: Neutrophils/100 WBC (Bld) 61.4 % 47-70 [facility] Work Phone: Potassium [Moles/Vol] 3.7 mmol/L 3.5-5.1 [facility] Work Phone: Sodium [Moles/Vol] 137 mmol/L 136-145 [facility] Work Phone: WBC (Bld) [#/Vol] 8.5 10*3/uL 4.4-11.0 [facility] Work Phone: Beta hCG serum qualon 2021 Beta HCG ( test) Ql Negative [facility] Work Phone: Blood erythrocytes count (nu mber/volume)on 11-21-2021 RBC (Bld) [#/Vol] 4.72 10*6/uL 4.2-5.4 [facility] Work Phone: Blood hemoglobin measurement (mass/volume)on 11-21-2021 Hemoglobin (Bld) [Mass/Vol] 13.2 g/dL 12.0-15.0 [facility] Work Phone: Blood lymphocytes/100 leukoc yteson 11-21-2021 Lymphocytes/100 WBC (Bld) 31.9 % 19-41 [facility] Work Phone: Blood monocytes/100 leukocyt eson 11-21-2021 Monocytes/100 WBC (Bld) 5.2 % 0-10 [facility] Work Phone: Blood platelet mean volumeon 11-21-2021 Platelet mean volume (Bld) [Entitic vol] 10.8 fL 6.2-12.0 [facility] Work Phone: [phone] Determination of erythrocyte mean corpuscular volume (MCV)on 11-21-2021 MCV (RBC) [Entitic vol] 84.7 fL 81-99 [facility] Work Phone: Hematocrit Auto (Bld) [Volum e fraction]on 11-21-2021 Hematocrit (Bld) [Volume fraction] 40.0 % 37-47 [facility] Work Phone: [phone] Laboratory - Chemistry and C hemistry - challengeon 11-21-2021 CO2 [Moles/Vol] 27.0 mmol/L 21.0-32.0 [facility] Work Phone: [phone] Urea nitrogen/Creatinine [Mass ratio] 16.1 mg/mg 10-20 [facility] Work Phone: Laboratory - Hematology and Cell countson 11-21-2021 Erythrocyte distribution width (RBC) [Entitic vol] 38.8 fL 35.1-43.9 [facility] Work Phone: Erythrocyte distribution width (RBC) [Ratio] 12.6 % 11.6-14.6 [facility] Work Phone: [phone] Immature granulocytes/100 WBC (Bld) 0.400 % 0.0-0.9 [facility] Work Phone: [phone] Comment on above: IG% - Immature Granu locytes (promyelocytes, myelocytes and metamyelocytes) > 1% indicates that a LEFT SHIFT is Present. MCH (RBC) [Entitic mass] 28.0 pg 27.0-32.0 [facility] Work Phone: Nucleated RBC/100 WBC (Bld) [Ratio] 0 % 0-5 [facility] Work Phone: MCHC Auto (RBC) [Mass/Vol]on 11-21-2021 MCHC (RBC) [Mass/Vol] 33.0 g/dL 32-36 [facility] Work Phone: No Panel Informationon 11-21 D-Dimer Quantitative (PE/DVT) 0.64 FEU/ug/m 0.27-0.49 [facility] Work Phone: Comment on above: CRITICAL VALUE VERIF IED. CALLED TO WALT [id number] Sejal Rogel.RESULTS READ BACK BY SAME . D-Dimer ELEVATED (>0.49): Additional studies and clinicalassessments are indicated to conclude diagnosis of:Deep Vein Thrombosis (DVT) or Pulmonary Embolism (PE) Estimated Creatinine Clearance Calc 100.03 ml/min [facility] Work Phone: Estimated GFR (MDRD) Amer 134 mL/min >60 [facility] Work Phone: Comment on above: GFR Calc Estimated GFR (MDRD) Non-Af Amer 110 mL/min >60 [facility] Work Phone: Comment on above: Non- GFR Calc Troponin I High Sensitivity < 3 pg/mL 3.0-54.0 [facility] Work Phone: Comment on above: Please Note: New Mansi t Units and Gender Specific Reference Ranges. For more information see Policy Stat Procedure [place] High Sensitivity Troponin (TNIH) and attachments. Platelets bldon 11-21-2021 Platelets (Bld) [#/Vol] 331 10*3/uL 150-450 [facility] Work Phone: Serum or plasma calcium raad urement (mass/volume)on 11-21-2021 Calcium [Mass/Vol] 8.7 mg/dL 8.5-10.1 [facility] Work Phone: Serum or plasma creatinine m easurement (mass/volume)on 11-21-2021 Creatinine [Mass/Vol] 0.68 mg/dL 0.55-1.02 [facility] Work Phone: Comment on above: The validity of the calculated GFR & GFRAA in patients over 70 years has not been determined. Clinical correlation is essential. Serum or plasma urea nitroge n measurement (mass/volume)on 11-21-2021 Urea nitrogen [Mass/Vol] 11 mg/dL 7-18 [facility] Work Phone: Thin prep Papanicolaou smear with manual screeningon 11-21-2021 Thin prep Papanicolaou smear with manual screening 5 5-15 [facility] Work Phone: Laboratory - Microbiology an d Antimicrobial susceptibilityon 11-12-2021 SARS-CoV-2 (COVID-19) RNA JAMARCUS+probe Ql (Unsp spec) Detected [facility] Work Phone: Laboratory - Microbiology an d Antimicrobial susceptibilityon 11-11-2021 SARS-CoV-2 (COVID-19) RNA JAMARCUS+probe Ql (Unsp spec) Not detected [facility] Work Phone: Gram stain for investigation of transfusion reaction Microscopic observation Gram stain Nom (Unsp spec) [facility] Work Phone: Influenza virus A and B and SARS-CoV-2 (COVID-19) Ag panel - Upper respiratory specim SARS-CoV-2 & FLU Antigen (Rapid) Influenzae A [facility] Work Phone: RSV Ag EIA RSV Ag Immune stain Ql (Tiss) [facility] Work Phone: Thin prep Papanicolaou smear with manual screening Cytopathology procedure, preparation of smear, genital source Neisseria or beta-hemolytic Streptococcus isolated. [facility] Work Phone: Thin prep Papanicolaou smear with manual screening Neisseria or beta-hemolytic Streptococcus isolated. [facility] Work Phone: Vital Signs Date Time Vital Sign Value Performing Clinician Johnny tavares 05-12-2025 06:47-0400 Body mass index (BMI) [Ratio] 42.7 kg/m2 Lala KELLEYC Work Phone: [facility] 05-12-2025 06:47-0400 Body weight 109.31 kg Lala Tate [employer] Work Phone: [facility] 05-12-2025 06:47-0400 Diastolic blood pressure 84 mm[Hg] Lala Tate [employer] Work Phone: [facility] 05-12-2025 06:47-0400 Heart rate 80 /min Lalayina Ybarra [employer] Work Phone: [facility] 05-12-2025 06:47-0400 Respiratory rate 18 /min Lala Tate [employer] Work Phone: [facility] 05-12-2025 06:47-0400 SaO2% (BldA) [Mass fraction] 100 % Lala Tate [employer] Work Phone: [facility] 05-12-2025 06:47-0400 Systolic blood pressure 125 mm[Hg] Lala Tate [employer] Work Phone: [facility] 03-15-2025 09:26-0400 Body weight 115.21 kg Scottie Chance MD Work Phone: [facility] 03-15-2025 09:26-0400 Diastolic blood pressure 86 mm[Hg] Scottie Chance MD Work Phone: [facility] 03-15-2025 09:26-0400 Systolic blood pressure 136 mm[Hg] Scottie Chance MD Work Phone: [facility] 03-08-2025 08:44-0400 Body weight 115.67 kg Scottie Chance MD Work Phone: [facility] 03-08-2025 08:44-0400 Diastolic blood pressure 82 mm[Hg] Scottie Chance MD Work Phone: [facility] 03-08-2025 08:44-0400 Systolic blood pressure 122 mm[Hg] Scottie Chance MD Work Phone: [facility] 01-27-2025 15:33-0400 Body height 160.02 cm Lala Ybarra [employer] Work Phone: [phone] [place] [address] 01-27-2025 15:33-0400 Body mass index (BMI) [Ratio] 45 kg/m2 Lala Ybarra [employer] Work Phone: [phone] [place] [address] 01-27-2025 15:33-0400 Body weight 115.32 kg Lala Ybarra [employer] Work Phone: [phone] [place] [address] 01-27-2025 15:33-0400 Diastolic blood pressure 76 mm[Hg] Lala Ybarra [employer] Work Phone: [phone] [place] [address] 01-27-2025 15:33-0400 Systolic blood pressure 138 mm[Hg] Lala Ybarra [employer] Work Phone: [phone] [place] [address] 01-24-2025 13:37-0400 Body mass index (BMI) [Ratio] 44.9 kg/m2 Lala Ybarra [employer] Work Phone: [phone] [place] [address] 01-24-2025 13:37-0400 Body weight 115.21 kg Lala Ybarra [employer] Work Phone: [phone] [place] [address] 01-24-2025 13:37-0400 Diastolic blood pressure 76 mm[Hg] Lala Ybarra [employer] Work Phone: [phone] [place] [address] 01-24-2025 13:37-0400 Systolic blood pressure 122 mm[Hg] Lala Ybarra [employer] Work Phone: [phone] [place] [address] 12-07-2024 09:08-0500 Body temperature 98.5 [degF] Lala Ybarra [employer] Work Phone: [phone])[phone] [place] [address] 12-07-2024 09:08-0500 Diastolic blood pressure 80 mm[Hg] Lala Ybarra [employer] Work Phone: [phone] [place] [address] 12-07-2024 09:08-0500 Heart rate 88 /min Lala Ybarra [employer] Work Phone: [phone] [place] [address] 12-07-2024 09:08-0500 Respiratory rate 16 /min Lala Ybarra [employer] Work Phone: [facility] 12-07-2024 09:08-0500 SaO2% (BldA) [Mass fraction] 99 % Lala Ybarra [employer] Work Phone: [facility] 12-07-2024 09:08-0500 Systolic blood pressure 126 mm[Hg] Lala Ybarra [employer] Work Phone: [facility] 11-02-2024 07:03-0500 Body temperature 98.1 [degF] Lala Ybarra [employer] Work Phone: [phone])469-735962 [place] [address] 11-02-2024 07:03-0500 Diastolic blood pressure 72 mm[Hg] Llaa Ybarra [employer] Work Phone: [phone])[phone] [place] [address] 11-02-2024 07:03-0500 Heart rate 94 /min Lala Ybarra [employer] Work Phone: [phone] [place] [address] 11-02-2024 07:03-0500 Respiratory rate 16 /min Lala Ybarra [employer] Work Phone: [phone] [place] [address] 11-02-2024 07:03-0500 SaO2% (BldA) [Mass fraction] 98 % Lala Ybarra [employer] Work Phone: [facility] 11-02-2024 07:03-0500 Systolic blood pressure 120 mm[Hg] Lala Ybarra NP-C Work Phone: [facility] 01-29-2024 12:27-0400 Diastolic blood pressure 80 mm[Hg] Dr. Francisco Stock Work Phone: [facility] 01-29-2024 12:27-0400 Systolic blood pressure 118 mm[Hg] Dr. Francisco Stock Work Phone: [facility] 01-29-2024 12:17-0400 Body height 157.[address] Francisco Stock Work Phone: [facility] 01-29-2024 12:17-0400 Body mass index (BMI) [Ratio] 38.2 kg/m2 Dr. Frnacisco Stock Work Phone: 0(663)910-016995 [place] [address] 01-29-2024 12:17-0400 Body weight 94.[address] Francisco Stock Work Phone: 5(839)088-324995 [place] [address] 01-29-2024 12:17-0400 Heart rate 86 /min Dr. Francisco Stock Work Phone: 2(944)557-046495 [place] [address] 12-29-2023 11:48-0500 Body mass index (BMI) [Ratio] 37.5 kg/m2 Dr. Francisco Stock Work Phone: 2(718)142-143531 [place] [address] 12-29-2023 11:48-0500 Body weight 92.[address] Francisco Stock Work Phone: 5(284)148-510631 [place] [address] 12-29-2023 11:48-0500 Diastolic blood pressure 80 mm[Hg] Dr. Francisco Stock Work Phone: 7(525)124-925031 [place] [address] 12-29-2023 11:48-0500 Heart rate 88 /min Dr. Francisco Stock Work Phone: 6(730)132-725731 [place] [address] 12-29-2023 11:48-0500 Systolic blood pressure 128 mm[Hg] Dr. Francisco Stock Work Phone: 7(028)940-073331 [place] [address] 12-04-2023 11:04-0500 Body height 157.[address] Panda Stock Work Phone: 1(115)640-782785 [address] 12-04-2023 11:04-0500 Body mass index (BMI) [Ratio] 38.2 kg/m2 Dr. Panda Stock Work Phone: 6(080)397-474331 [place] [address] 12-04-2023 11:04-0500 Body weight 94.[address] Panda Stock Work Phone: 4(151)316-043331 [place] [address] 12-04-2023 11:04-0500 Diastolic blood pressure 78 mm[Hg] Dr. Panda Stock Work Phone: 4(957)980-267931 [place] [address] 12-04-2023 11:04-0500 Heart rate 82 /min Dr. Panda Stock Work Phone: [facility] 12-04-2023 11:04-0500 Systolic blood pressure 121 mm[Hg] Dr. Panda Stock Work Phone: [facility] 11-02-2023 13:51-0500 Body mass index (BMI) [Ratio] 39.2 kg/m2 Dr. Panda Stock Work Phone: 2(061)390-510895 [place] [address] 11-02-2023 13:51-0500 Body weight 97.[address] Panda Stock Work Phone: 3(579)883-263785 [address] 11-02-2023 13:51-0500 Diastolic blood pressure 80 mm[Hg] Dr. Panda Stock Work Phone: 9(363)743-091485 [address] 11-02-2023 13:51-0500 Heart rate 90 /min Dr. Panda Stock Work Phone: 8(153)842-084685 [address] 11-02-2023 13:51-0500 Respiratory rate 16 /min Dr. Panda Stock Work Phone: 1(836)220-813385 [address] 11-02-2023 13:51-0500 SaO2% (BldA) [Mass fraction] 92 % Dr. Panda Stock Work Phone: 6(076)978-504195 [place] [address] 11-02-2023 13:51-0500 Systolic blood pressure 116 mm[Hg] Dr. Panda Stock Work Phone: [facility] 10-05-2023 14:01-0500 Body mass index (BMI) [Ratio] 38.8 kg/m2 Dr. Panda Stock Work Phone: 8(455)459-654195 [place] [address] 10-05-2023 14:01-0500 Body weight 96.[address] Panda Stock Work Phone: 2(687)547-689495 [place] [address] 10-05-2023 14:01-0500 Diastolic blood pressure 68 mm[Hg] Dr. Panda Stock Work Phone: [facility] 10-05-2023 14:01-0500 Systolic blood pressure 118 mm[Hg] Dr. Panda Stock Work Phone: [facility] 09-10-2023 15:28-0500 Body height 157.[address] Panda Stock Work Phone: 3(105)093-554995 [place] [address] 09-10-2023 15:21-0500 Body mass index (BMI) [Ratio] 39.2 kg/m2 Dr. Panda Stock Work Phone: [facility] 09-10-2023 15:21-0500 Body weight 97.[address] Panda Stock Work Phone: 6(855)497-542695 [place] [address] 09-10-2023 15:21-0500 Diastolic blood pressure 78 mm[Hg] Dr. Panda Stock Work Phone: 0(548)770-828895 [place] [address] 09-10-2023 15:21-0500 Systolic blood pressure 98 mm[Hg] Dr. Panda Stock Work Phone: [facility] 08-13-2023 14:25-0400 Body temperature 97.2 [degF] Dr. Panda Stock Work Phone: [facility] 08-13-2023 14:25-0400 Diastolic blood pressure 82 mm[Hg] Dr. Panda Stock Work Phone: [facility] 08-13-2023 14:25-0400 Heart rate 102 /min Dr. Panda Stock Work Phone: [facility] 08-13-2023 14:25-0400 Respiratory rate 17 /min Dr. Panda Stock Work Phone: [facility] 08-13-2023 14:25-0400 SaO2% (BldA) [Mass fraction] 95 % Dr. Panda Stock Work Phone: [facility] 08-13-2023 14:25-0400 Systolic blood pressure 127 mm[Hg] Dr. Panda Stock Work Phone: [facility] 08-13-2023 13:44-0400 Body mass index (BMI) [Ratio] 39.3 kg/m2 Dr. Panda Stock Work Phone: [facility] 08-13-2023 13:44-0400 Body weight 97.[address] Panda Stock Work Phone: [facility] 08-13-2023 13:44-0400 Diastolic blood pressure 76 mm[Hg] Dr. Panda Stock Work Phone: [facility] 08-13-2023 13:44-0400 Heart rate 90 /min Dr. Panda Stock Work Phone: [facility] 08-13-2023 13:44-0400 Systolic blood pressure 123 mm[Hg] Dr. Panda Stock Work Phone: [facility] 07-17-2023 13:49-0400 Body mass index (BMI) [Ratio] 39.9 kg/m2 Dr. Panda Stcok Work Phone: [facility] 07-17-2023 13:49-0400 Body weight 98.[address] Panda Stock Work Phone: [facility] 07-17-2023 13:49-0400 Diastolic blood pressure 70 mm[Hg] Dr. Panda Stock Work Phone: [facility] 07-17-2023 13:49-0400 Heart rate 94 /min Dr. Panda Stock Work Phone: [facility] 07-17-2023 13:49-0400 Systolic blood pressure 108 mm[Hg] Dr. Panda Stock Work Phone: [facility] 06-19-2023 10:52-0400 Body mass index (BMI) [Ratio] 40.1 kg/m2 Dr. Panda Stock Work Phone: [facility] 06-19-2023 10:52-0400 Body weight 99.[address] Panda Stock Work Phone: [facility] 06-19-2023 10:52-0400 Diastolic blood pressure 82 mm[Hg] Dr. Panda Stock Work Phone: [facility] 06-19-2023 10:52-0400 Systolic blood pressure 122 mm[Hg] Dr. Panda Stock Work Phone: [facility] 01-26-2023 16:35-0400 Body height 157.[address] Panda Stock Work Phone: 8(838)085-106595 [place] [address] 01-26-2023 16:32-0400 Body mass index (BMI) [Ratio] 43 kg/m2 Dr. Panda Stock Work Phone: 5(186)071-524595 [place] [address] 01-26-2023 16:32-0400 Body weight 106.[address] Panda Stock Work Phone: 3(877)977-723395 [place] [address] 01-26-2023 16:32-0400 Diastolic blood pressure 82 mm[Hg] Dr. Panda Stock Work Phone: 8(599)495-259695 [place] [address] 01-26-2023 16:32-0400 Systolic blood pressure 133 mm[Hg] Dr. Panda Stock Work Phone: 9(957)813-721995 [place] [address] 12-22-2022 13:27-0500 Body height 157.[address] Panda Stock Work Phone: 1(903)806-822295 [place] [address] 12-22-2022 13:21-0500 Body mass index (BMI) [Ratio] 42.9 kg/m2 Dr. Panda Stock Work Phone: 9(090)877-981995 [place] [address] 12-22-2022 13:21-0500 Body weight 106.[address] Panda Stock Work Phone: 6(906)652-682395 [place] [address] 12-22-2022 13:21-0500 Diastolic blood pressure 82 mm[Hg] Dr. Panda Stock Work Phone: [facility] 12-22-2022 13:21-0500 Systolic blood pressure 122 mm[Hg] Dr. Panda Stock Work Phone: [facility] 09-30-2022 08:02-0500 Diastolic blood pressure 76 mm[Hg] Dr. Panda Stock Work Phone: [facility] 09-30-2022 08:02-0500 Heart rate 71 /min Dr. Panda Stock Work Phone: [facility] 09-30-2022 08:02-0500 Respiratory rate 15 /min Dr. Panda Stock Work Phone: [facility] 09-30-2022 08:02-0500 SaO2% (BldA) [Mass fraction] 98 % Dr. Panda Stock Work Phone: [facility] 09-30-2022 08:02-0500 Systolic blood pressure 128 mm[Hg] Dr. Panda Stock Work Phone: [facility] 09-30-2022 06:29-0500 Body height 157.[address] Panda Stock Work Phone: [facility] Work Phone: 09-30-2022 06:29-0500 Body mass index (BMI) [Ratio] 41 kg/m2 Dr. Panda Stock Work Phone: [facility] 09-30-2022 06:29-0500 Body temperature 98.8 [degF] Dr. Panda Stock Work Phone: [facility] 09-30-2022 06:29-0500 Body weight 101.[address] Panda Stock Work Phone: [facility] 09-10-2022 09:10-0500 Body mass index (BMI) [Ratio] 39.9 kg/m2 Dr. Panda Stock Work Phone: [facility] 09-10-2022 09:10-0500 Body weight 99.[address] Panda Stock Work Phone: [facility] 09-10-2022 09:10-0500 Diastolic blood pressure 78 mm[Hg] Dr. Panda Stock Work Phone: [facility] 09-10-2022 09:10-0500 Systolic blood pressure 120 mm[Hg] Dr. Panda Stock Work Phone: [facility] 08-25-2022 15:18-0400 Body height 157.[address] Panda Stock Work Phone: [facility] Work Phone: 08-25-2022 15:14-0400 Body mass index (BMI) [Ratio] 40.3 kg/m2 Dr. Panda Stock Work Phone: [facility] Work Phone: 08-25-2022 15:14-0400 Body weight 99.[address] Panda Stock Work Phone: [facility] Work Phone: 08-25-2022 15:14-0400 Diastolic blood pressure 82 mm[Hg] Dr. Panda Stock Work Phone: [facility] Work Phone: 08-25-2022 15:14-0400 Systolic blood pressure 128 mm[Hg] Dr. Panda Stock Work Phone: [facility] Work Phone: 08-05-2022 13:51-0400 Body height 157.[address] Panda Stock Work Phone: [facility] Work Phone: 08-05-2022 13:51-0400 Body mass index (BMI) [Ratio] 40.5 kg/m2 Dr. Panda Stock Work Phone: [facility] Work Phone: 08-05-2022 13:51-0400 Body weight 100.[address] Panda Stock Work Phone: [facility] Work Phone: 08-05-2022 13:51-0400 Diastolic blood pressure 79 mm[Hg] Dr. Panda Stock Work Phone: [facility] Work Phone: 08-05-2022 13:51-0400 Heart rate 101 /min Dr. Panda Stock Work Phone: [facility] Work Phone: 08-05-2022 13:51-0400 Systolic blood pressure 122 mm[Hg] Dr. Panda Stock Work Phone: [facility] Work Phone: 07-08-2022 13:46-0400 Body height 157.[address] Panda Stock Work Phone: [facility] Work Phone: 07-08-2022 13:46-0400 Body mass index (BMI) [Ratio] 41.5 kg/m2 Dr. Panda Stock Work Phone: [facility] Work Phone: 07-08-2022 13:46-0400 Body weight 103.[address] Panda Stock Work Phone: [facility] Work Phone: 07-08-2022 13:46-0400 Diastolic blood pressure 77 mm[Hg] Dr. Panda Stock Work Phone: [facility] Work Phone: 07-08-2022 13:46-0400 Systolic blood pressure 116 mm[Hg] Dr. Panda Stock Work Phone: [facility] Work Phone: 06-09-2022 13:54-0400 Body mass index (BMI) [Ratio] 43.7 kg/m2 Dr. Panda Stock Work Phone: [facility] Work Phone: 06-09-2022 13:54-0400 Body weight 108.[address] Panda Stock Work Phone: [facility] Work Phone: 06-09-2022 13:54-0400 Diastolic blood pressure 72 mm[Hg] Dr. Panda Stock Work Phone: [facility] Work Phone: 06-09-2022 13:54-0400 Systolic blood pressure 120 mm[Hg] Dr. Panda Stock Work Phone: [facility] Work Phone: 01-24-2022 08:33-0400 Body height 157.[address] Panda Stock Work Phone: [facility] Work Phone: 01-24-2022 08:33-0400 Body mass index (BMI) [Ratio] 41.8 kg/m2 Dr. Panda Stock Work Phone: [facility] Work Phone: 01-24-2022 08:33-0400 Body weight 103.[address] Panda Stock Work Phone: [facility] Work Phone: 01-24-2022 08:33-0400 Diastolic blood pressure 76 mm[Hg] Dr. Panda Stock Work Phone: [facility] Work Phone: 01-24-2022 08:33-0400 Heart rate 77 /min Dr. Panda Stock Work Phone: [facility] Work Phone: 01-24-2022 08:33-0400 Respiratory rate 16 /min Dr. Panda Stock Work Phone: [facility] Work Phone: 01-24-2022 08:33-0400 Systolic blood pressure 120 mm[Hg] Dr. Panda Stock Work Phone: [facility] Work Phone: 01-24-2022 08:33-0400 Body height 157.[address] Panda Stock Work Phone: [facility] Work Phone: 01-24-2022 08:33-0400 Body mass index (BMI) [Ratio] 41.8 kg/m2 Dr. Panda Stock Work Phone: [facility] Work Phone: 01-24-2022 08:33-0400 Body weight 103.[address] Panda Stock Work Phone: [facility] Work Phone: 01-24-2022 08:33-0400 Diastolic blood pressure 76 mm[Hg] Dr. Panda Stock Work Phone: [facility] Work Phone: 01-24-2022 08:33-0400 Heart rate 77 /min Dr. Panda Stock Work Phone: [facility] Work Phone: 01-24-2022 08:33-0400 Respiratory rate 16 /min Dr. Panda Stock Work Phone: [facility] Work Phone: 01-24-2022 08:33-0400 Systolic blood pressure 120 mm[Hg] Dr. Panda Stock Work Phone: [facility] Work Phone: 11-21-2021 10:17-0500 Body temperature 98.4 [degF] Dr. Panda Stock Work Phone: [facility] Work Phone: 11-21-2021 10:17-0500 Diastolic blood pressure 82 mm[Hg] Dr. Panda Stock Work Phone: [facility] Work Phone: 11-21-2021 10:17-0500 Heart rate 60 /min Dr. Panda Stock Work Phone: [facility] Work Phone: 11-21-2021 10:17-0500 Respiratory rate 14 /min Dr. Panda Stock Work Phone: [facility] Work Phone: 11-21-2021 10:17-0500 SaO2% (BldA) [Mass fraction] 97 % Dr. Panda Stock Work Phone: [facility] Work Phone: 11-21-2021 10:17-0500 Systolic blood pressure 124 mm[Hg] Dr. Panda Stock Work Phone: [facility] Work Phone: 11-21-2021 06:18-0500 Body mass index (BMI) [Ratio] 40.7 kg/m2 Dr. Panda Stock Work Phone: [facility] Work Phone: 11-21-2021 06:18-0500 Body weight 101.[address] Panda Stock Work Phone: [facility] Work Phone: 11-16-2021 11:03-0500 Body temperature 98.1 [degF] Dr. Panda Stock Work Phone: [facility] Work Phone: 11-16-2021 11:03-0500 Diastolic blood pressure 67 mm[Hg] Dr. Panda Stock Work Phone: [facility] Work Phone: 11-16-2021 11:03-0500 Heart rate 67 /min Dr. Panda Stock Work Phone: [facility] Work Phone: 11-16-2021 11:03-0500 Respiratory rate 16 /min Dr. Panda Stock Work Phone: [facility] Work Phone: 11-16-2021 11:03-0500 SaO2% (BldA) [Mass fraction] 100 % Dr. Panda Stock Work Phone: [facility] Work Phone: 11-16-2021 11:03-0500 Systolic blood pressure 115 mm[Hg] Dr. Panda Stock Work Phone: [facility] Work Phone: 11-16-2021 09:19-0500 Body mass index (BMI) [Ratio] 35.6 kg/m2 Dr. Panda Stock Work Phone: [facility] Work Phone: 11-16-2021 09:19-0500 Body weight 88.[address] Panda Stock Work Phone: [facility] Work Phone: Encounters Encounter Date Encounter Type Care Provider Facility Start: 07-12-2025 ambulatory Health Risk Assessment Facility:[facility] Start: 05-30-2025 Non-patient / Non-visit Dr. Rob Olmedo MD -[facility] Start: 05-30-2025 End: 05-30-2025 ambulatory Lala Ybarra NP-C Work Phone: -[facility] Start: 05-30-2025 End: 05-30-2025 Patient encounter procedure Jannette PAINTING -[facility] Work Phone: Start: 05-30-2025 End: 05-30-2025 ambulatory Jannette PAINTING Facility:[facility] Start: 05-12-2025 End: 05-12-2025 Patient encounter procedure Jannette PAINTING -[facility] Work Phone: Start: 05-12-2025 End: 05-12-2025 ambulatory Lala Ybarra NP-C Work Phone: -[facility] Start: 04-13-2025 End: 04-13-[address] Cora Saeed [place] -[facility] Work Phone: Start: 04-13-2025 End: 04-13-2025 ambulatory Lala Ybarra BRIM STITCHER-C Work Phone: [facility] Work Phone: Start: 04-05-2025 End: 04-05-2025 ambulatory Lala Ybarra BRIM STITCHER-C Work Phone: [facility] Work Phone: Start: 04-05-2025 End: 04-05-2025 Patient encounter procedure [facility] Lala Ybarra BRIM STITCHER-C -Laboratory Jaclyn Arechiga Start: 04-05-2025 End: 04-05-2025 ambulatory [facility] Lala Ybarra Facility:[facility] Start: 03-27-2025 End: 03-27-2025 Telephone encounter Scottie Chance MD Work Phone: OB/Gynecology Start: 03-22-2025 End: 05-22-2025 Follow-up encounter Johanna Thapa MD Work Phone: OB/Gynecology Start: 03-15-2025 End: 03-15-2025 Patient encounter procedure Scottie Chance MD Work Phone: OB/Gynecology Comment on above: Pap smear of cervix with ASCUS, cannot exclude HGSIL (Primary Dx) Start: 03-15-2025 End: 03-15-2025 ambulatory SCOTTIE CHANCE Facility:[facility] Start: 03-08-2025 End: 03-08-2025 ambulatory SCOTTIE CHANCE Facility:[facility] Start: 03-08-2025 End: 03-08-2025 Patient encounter procedure Scottie Chance MD Work Phone: OB/Gynecology Comment on above: Pap smear of cervix with ASCUS, cannot exclude HGSIL (Primary Dx) Start: 03-03-2025 ambulatory Trista Lala Fa cility:[facility] Start: 01-27-2025 End: 01-27-2025 Patient encounter procedure [facility]ely Gregg CN[facility] Work Phone: Start: 01-27-2025 End: 01-27-2025 ambulatory Lala Ybarra BRIM STITCHER-C Work Phone: [facility] Work Phone: Start: 01-27-2025 End: 01-27-2025 ambulatory Nayely Gregg Facility:[facility] Start: 01-24-2025 End: 01-24-[address] Cora Saeed [place] -[facility] Work Phone: Start: 01-24-2025 End: 01-24-2025 ambulatory Cora Saeed Facility:[facility] Start: 12-29-2024 End: 12-29-2024 Patient encounter procedure Demario Annemahad BRIM STITCHER-C -[facility] Work Phone: Start: 12-29-2024 End: 12-29-2024 ambulatory Demario Drake Facility:[facility] Start: 11-02-2024 End: 11-02-2024 Patient encounter procedure Feliciano Echavarria PA -[facility] Work Phone: Start: 11-02-2024 End: 11-02-2024 ambulatory Feliciano Echavarria Facility:[facility] Start: 10-06-2024 End: 10-06-2024 Patient encounter procedure Vivienne East DO -Laboratory, [facility] Start: 10-06-2024 End: 10-06-[address] [facility] Facility:[facility] Start: 09-10-2024 End: 09-10-2024 ambulatory C [facility] Facility:[facility] Start: 07-28-2024 End: 07-28-2024 ambulatory Dyllan Moon [facility] Facility:[facility] Start: 07-19-2024 End: 07-19-[address] [facility] Facility:[facility] Start: 02-03-2024 End: 02-03-[address] Francisco Stock Work Phone: [facility] Work Phone: Start: 02-03-2024 End: 02-03-[address] Francisco Stock Work Phone: [facility]-Laboratory Work Phone: Start: 01-29-2024 End: 01-29-[address] Francisco Stock Work Phone: [facility] Work Phone: Start: 01-05-2024 End: 01-05-[address] Francisco Stock Work Phone: [facility] Work Phone: Start: 12-30-2023 End: 12-30-[address] Francisco Stock Work Phone: [facility] Work Phone: Start: 12-29-2023 End: 12-29-[address] Francisco Stock Work Phone: [facility] Work Phone: Start: 12-24-2023 Non-patient / Non-visit Dr. Francisco Stock Work Phone: [facility] Work Phone: Start: 12-24-2023 End: 12-24-[address] Panda Stock Work Phone: [facility] Work Phone: Start: 12-23-2023 End: 12-23-[address] Panda Stock Work Phone: [facility] Work Phone: Start: 12-23-2023 End: 12-23-[address] Panda Stock Work Phone: [facility]-Radiology, [facility] Work Phone: Start: 12-17-2023 End: 12-17-[address] Panda Stock Work Phone: [facility] Work Phone: Start: 12-04-2023 End: 12-04-[address] Panda Stock Work Phone: [facility] Work Phone: Start: 11-02-2023 End: 11-02-[address] Panda Stock Work Phone: [facility] Work Phone: Start: 10-05-2023 End: 10-05-[address] Panda Stock Work Phone: [facility] Work Phone: Start: 09-29-2023 End: 09-29-[address] Panda Stock Work Phone: [facility] Work Phone: Start: 09-10-2023 End: 09-10-[address] Panda Stock Work Phone: [facility] Work Phone: Start: 09-10-2023 End: 09-10-[address] Panda Stock Work Phone: [facility] Work Phone: Start: 08-13-2023 End: 08-13-[address] Panda Stock Work Phone: [facility] Work Phone: Start: 07-17-2023 End: 07-17-[address] Panda Stock Work Phone: [facility] Work Phone: Start: 06-22-2023 End: 06-22-[address] Panda Stock Work Phone: [facility] Work Phone: Start: 06-19-2023 End: 06-19-[address] Panda Stock Work Phone: [facility] Work Phone: Start: 06-18-[address] Lawson Stock Work Phone: [facility] Start: 01-29-2023 End: 01-29-[address] Panda Stock Work Phone: [facility] Work Phone: Start: 01-29-2023 End: 01-29-[address] Panda Stock Work Phone: [facility] [place], [facility] Start: 01-27-2023 End: 01-27-[address] Panda Stock Work Phone: [facility] Work Phone: Start: 01-27-2023 End: 01-27-[address] Panda Stock Work Phone: [facility]-Laboratory Start: 01-26-2023 End: 01-26-[address] Panda Stock Work Phone: [facility] Start: 12-25-2022 End: 12-25-[address] Panda Stock Work Phone: [facility] Work Phone: Start: 12-25-2022 End: 12-25-[address] Panda Stock Work Phone: [facility], [facility] Start: 12-22-2022 End: 12-22-[address] Panda Stock Work Phone: [facility] Start: 12-18-2022 End: 12-18-[address] Panda Stock Work Phone: [facility] Start: 11-18-2022 Non-patient / Non-visit Dr. Panda Stock Work Phone: [facility] Start: 11-11-2022 End: 11-11-[address] Panda Stock Work Phone: [facility], [facility] Start: 09-30-2022 End: 09-30-2022 Emergency department patient visit Dr. Panda Stock Work Phone: [facility]-Emergency Department Start: 09-23-2022 End: 09-23-[address] Panda Stock Work Phone: [facility] Work Phone: Start: 09-23-2022 End: 09-23-[address] Panda Stock Work Phone: [facility]-Laboratory Start: 09-10-2022 End: 09-10-[address] Panda Stock Work Phone: [facility] Start: 08-28-2022 End: 08-28-[address] Panda Stock Work Phone: [facility] Start: 08-25-2022 End: 08-25-[address] Panda Stock Work Phone: [facility] Start: 08-25-2022 End: 08-25-[address] Panda Stock Work Phone: [facility] Work Phone: Start: 08-25-2022 End: 08-25-[address] Panda Stock Work Phone: [facility]Laboratory Start: 08-19-2022 End: 08-19-[address] Panda Stock Work Phone: [facility] Work Phone: Start: 08-19-2022 End: 08-19-[address] Panda Stock Work Phone: [facility] Start: 08-07-2022 End: 08-07-[address] Panda Stock Work Phone: [facility] Start: 08-05-2022 End: 08-05-[address] Panda Stock Work Phone: [facility] Start: 07-30-2022 End: 07-30-[address] Panda Stock Work Phone: [facility] Work Phone: Start: 07-30-2022 End: 07-30-[address] Panda Stock Work Phone: [facility]Laboratory Start: 07-08-2022 End: 07-08-[address] Panda Stock Work Phone: [facility] Start: 07-08-2022 End: 07-08-[address] Panda Stock Work Phone: [facility] Work Phone: Start: 07-08-2022 End: 07-08-[address] Panda Stock Work Phone: [facility] Start: 07-08-[address] Lawson Stock Work Phone: [facility] Start: 06-09-2022 End: 06-09-[address] Panda Stock Work Phone: [facility] Start: 05-13-[address] Lawson Stock Work Phone: [facility] Start: 04-17-2022 End: 04-17-[address] Panda Stock Work Phone: [facility] Start: 04-16-2022 End: 04-16-[address] Panda Stock Work Phone: [facility] Start: 04-01-2022 End: 04-01-[address] Panda Stock Work Phone: [facility] Start: 03-06-2022 End: 03-06-[address] Panda Stock Work Phone: [facility] Start: 02-27-[address] Lawson Stock Work Phone: [facility] Start: 01-24-2022 End: 01-24-[address] Panda Stock Work Phone: [facility] Start: 01-20-2022 End: 01-20-[address] Panda Stock Work Phone: [facility] Start: 12-12-2021 End: 12-12-[address] Panda Stock Work Phone: [facility] Start: 12-02-2021 End: 12-02-[address] Panda Stock Work Phone: [facility] Start: 11-25-2021 End: 11-25-[address] Panda Stock Work Phone: [facility] Start: 11-21-2021 End: 11-21-2021 Emergency department patient visit Dr. Panda Stock Work Phone: [facility]-Emergency Department Start: 11-16-2021 End: 11-16-[address] Panda Stock Work Phone: [facility]-Medical Surgical 3 Outp Start: 11-12-2021 End: 11-12-[address] Panda Stock Work Phone: [facility] Start: 11-11-2021 End: 11-11-[address] Panda tSock Work Phone: [facility] Procedures Date Procedure Procedure Detail Performing Clinician Start: 04-05-2025 Methadone measurement, urine Lala Ybarra NP-C Work Phone: Start: 03-15-2025 Level iv surg pathol ogy gross&microscopic exam Scottie Chance MD Work Phone: Start: 03-15-2025 UA DIP,URINE HCG (POC) Scottie Chance MD Work Phone: Start: 01-27-2025 Liquid based cervica l cytology screening Lala Ybarra NP-C Work Phone: Comment on above: EPITHELIAL CELL ABNO RMALITY.ATYPICAL SQUAMOUS CELLS, CANNOT EXCLUDE HIGH-GRADE SQUAMOUSINTRAEPITHELIAL LESION (ASC-H). This liquid based Th inPrep(R) pap test was screened withthe use of an image guided system. The HPV DNA reflex c katia were not met with this specimenresult therefore, no HPV testing was performed.Performed at: [address] [id number] Director: Cortney Vargas MD, Phone: [phone] Start: 12-23-2023 X-ray of lumbosacral spine Dr. [...] DTaP,Tdap,Td Vaccine (7 - Td or Tdap) [facility] Start: 06-26-2025 Influenza vaccination Influenza Vaccine (#1) [facility] Start: 03-15-2025 End: 03-15-2025 Patient encounter procedure 03/15/2025 9:30 AM EDT Office Visit OB/Gynecology [address] [place] [address] Scottie Chance MD [address] [place] [address] Pap smear of cervix with ASCUS, cannot exclude HGSIL [R87.611] OB/Gynecology Comment on above: Pap smear of cervix with ASCUS, cannot e xclude HGSIL [R87.611] Start: 01-27-2025 Liquid based cervical cytology screening [facility] Start: 06-26-2024 Covid-19 Vaccine ( season) Covid-19 Vaccine () [facility] Start: 07-30-2022 Procedure [facility] Work Phone: Start: 02-21-2017 Screening for malignant neoplasm of cervix Cervical Cancer Screening [facility] Start: 02-21-2014 Anxiety Screening Anxiety Screening [facility] Start: 02-21-2014 Depression Screening Depression Screening [facility] Start: 02-21-2014 Hepatitis C screening Hepatitis C Screening [facility] Start: 02-21-2014 HIV screening HIV Screening [facility] COLPOSCOPY COLPOSCOPY Procedures Routine Pap smear of cervix with ASCUS, cannot exclude HGSIL Ordered: 03/08/2025 [facility] Work Phone: Comment on above: Ordered: 03/08/2025 COLPOSCOPY COLPOSCOPY Procedures Routine Pap smear of cervix with ASCUS, cannot exclude HGSIL Ordered: 03/15/2025 [facility] Work Phone: Comment on above: Ordered: 03/15/2025 Dehydroepiandrostero ne sulfate (DHEA-S) [Mass/volume] in Serum or Plasma [facility] Work Phone: Path report.final Dx Spec [facility] Patient Education [facility] Work Phone: Patient referral [facility] Work Phone: Procedure [facility] Work Phone: Prolactin [Mass/volu me] in Serum or Plasma [facility] Work Phone: Testosterone Free [M ass/volume] in Serum or Plasma [facility] Work Phone: [facility] Immunizations Immunization Date Immunization Notes Care Provider [facility] 09-08-2024 influenza, seasonal, injectable, preservative free Lala Ybarra [employer]-C Work Phone: [facility] 09-08-2024 influenza virus vaccine, unspecified formulation Johanna Thapa MD Work Phone: [facility] 08-03-2023 influenza, injectabl e, quadrivalent, preservative free Dr. Panda Stock Work Phone: [facility] 07-25-2022 influenza, injectabl e, quadrivalent, preservative free Dr. Panda Stock Work Phone: [facility] 07-25-2022 influenza, seasonal, injectable Dr. Panda Stock Work Phone: [facility] 07-31-2021 influenza, injectabl e, quadrivalent, preservative free Dr. Panda Stock Work Phone: [facility] 07-31-2021 influenza, seasonal, injectable Dr. Panda Stock Work Phone: [facility] 07-24-2020 influenza, injectabl e, quadrivalent, preservative free Dr. Panda Stock Work Phone: [facility] 07-24-2020 influenza, seasonal, injectable Dr. Panda Stock Work Phone: [facility] 09-07-2019 influenza, injectabl e, quadrivalent, preservative free Dr. Panda Stock Work Phone: [facility] 09-07-2019 influenza, seasonal, injectable Dr. Panda Stock Work Phone: [facility] 08-25-2018 influenza, injectabl e, quadrivalent, preservative free Dr. Panda Stock Work Phone: [facility] 08-25-2018 influenza, seasonal, injectable Dr. Panda Stock Work Phone: [facility] 10-27-2017 influenza, injectabl e, quadrivalent, preservative free Dr. Panda Stock Work Phone: [facility] 10-27-2017 influenza, seasonal, injectable Dr. Panda Stock Work Phone: [facility] 04-27-2016 tetanus toxoid, reduced diphtheria toxoid, and acellular pertussis vaccine, adsorbed Dr. Panda Stock Work Phone: [facility] Payers Date Payer Category Payer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 ID Status Reason Start Date Expiration Date V isits Requested Visits Authorized [id number] Closed Auto-Generate d Referral 03/08/2025 03/08/2026 1 1 INFORMATION SOURCE (unrecogn ized section and content) DATE CREATED AUTHOR 03/27/2025 [facility] DATE CREATED AUTHOR 'S ORGANIZ ATION 07/13/2025 [facility] FOR RECORDS PERTAINING TO PATIENTS WHO ARE [...] BE BASED ON THE PRIMARY CLINICAL RECORDS. [facility] [place] [facility]. provides no warranty or guarantee of the accuracy or completeness of information in this document.
--- OUTSIDE RECORDS SUMMARY | 2025-08-16 04:12 | XMS RPT_ITS | CCD ---
Author Organization [facility] Care Team Providers Care Terrazzo Layer Name Role Phone Dr. Panda Stock Primary Care Provider [phone] Dr. Panda Stock Referring Provider Dr. Hi Silverio Attending Provider Dr. Cora Saeed Attending Provider [phone] [facility] SAW FILER, SAW FILER-Ame Cat Attending Provider Dr. Panda Stock Primary Care Provider [phone] Dr. Panda Stock Referring Provider Dr. Cora Saeed Attending Provider [phone] Dr. Panda Stock Primary Care Provider [phone] Dr. Panda Stock Referring Provider Dr. Cora Saeed Attending Provider [phone] [place] SAW FILERUZIEL Attending Provider Dr. Panda Stock Primary Care Provider [phone] Dr. Panda Stock Referring Provider Dr. Cora Saeed Attending Provider [phone] Dr. Panda Stock Primary Care Provider [phone] Dr. Panda Stock Referring Provider River SAW FILERUZIEL Attending Provider Dr. Cora Saeed Attending Provider [phone] Dr. Panda Stock Primary Care Provider [phone] Dr. Panda Stock Referring Provider River SAW FILER, SAW FILER-C Cari Attending Provider [phone] Dr. Cintia Mcgee Attending Provider [phone] Dr. Cintia Mcgee Other Provider Dr. Cora Saeed Attending Provider [phone] Dr. Panda Stock Primary Care Provider Dr. Cintia Mcgee Attending Provider [phone] Dr. Cintia Mcgee Other Provider [phone] Dr. Panda Stock Referring Provider Dr. Cora Saeed Attending Provider [phone] [place] SAW FILER, SAW FILER-C Cari Attending Provider [phone] Dr. Panda Stock Primary Care Provider Dr. Panda Stock Referring Provider Dr. Cintia Mcgee Attending Provider [phone] Dr. Cora Saeed Attending Provider [phone] MERT Zendejas Attending Provider Dr. Panda Stock Referring Provider Dr. Cintia Mcgee Attending Provider [phone] Dr. Cora Saeed Attending Provider [phone] Dr. Panda Stock Primary Care Provider Dr. Cintia Mcgee Attending Provider [phone] Dr. Cora Saeed Attending Provider [phone] Dr. Francisco Stock Primary Care Provider [phone] Dr. Francisco Stock Referring Provider Tate SAW FILER-CLala Primary Care Provider Vivienne East DO Attending Provider Vivienne East DO Referring Provider Tate SAW FILER-C, Lala Referring Provider Felciiano Ge Attending Provider Noelle SAW FILER-C, Demario Attending Provider Darlin LARES, Dr. Shepherd Attending Provider [phone] Montrell PERSAUD, Dr. Singh Referring Provider Nayely Gregg CNM Attending Provider [phone] Nayely Gregg CNM Referring Provider [phone] SaePraneeth Tuyet Unavailable SCOTTIE CHANCE Referring Unavailable SOCTTIE CHANCE Attending Unavailable SCOTTIE CHANCE Attending Unavailable Atte SAW FILER-C, Lala Primary Care Provider Tate SAW FILER-C, Lala Referring Provider Tate SAW FILER-C, Lala Attending Provider Tate SAW FILER-C, Lala Primary Care Provider Tate SAW FILER-C, Lala Referring Provider Jannette Christensen Attending Provider Tate SAW FILER-C, Lala Primary Care Provider Tate SAW FILER-C, Lala Referring Provider Darlin LARES, Dr. Shepherd Attending Provider [phone] Jannette Christensen Referring Provider [phone] Shara PERSAUD, Dr. Rivas Attending Provider [phone] Jannette Christensen Attending Unavail able Jannette Christensen Referring Unavail able Lala Ybarra, [facility] Primary Care Unavailabl e Trista Lala Attending Unavailabl e Lala Ybarra, [facility] Referring Unavailabl e Lala Tate, [facility] Primary Care Unavailabl e Feliciano Echavarria Attending Unavailable Lala Ybarra, [facility] Referring Unavailabl e Lala Ybarra, [facility] Primary Care Unavailabl e Francisco Stock Referring Unavailable Nayely Gregg Attending Unavailable Lala Ybarra, [facility] Primary Care Unavailabl e Cora Saeed Attending Unavailable Lala Tate, [facility] Referring Unavailabl e Lala Tate, [facility] Primary Care Unavailabl e Demario Drake Attending Unavailable Lala Ybarra, [facility] Referring Unavailabl e Lala Tate, [facility] Primary Care Unavailabl Feliciano Ruano Attending Unavailable Lala Ybarra, [facility] Referring Unavailabl e Lala aTte, [facility] Primary Care Unavailabl e Demario Drake Attending Unavailable Lala Ybarra, [facility] Referring Unavailabl e Lala Tate, [facility] Primary Care Unavailabl e Cora Saeed Attending Unavailable Lalarene Ybarra, [facility] Referring Unavailabl e Lala Tate, [facility] Primary Care Unavailabl e Jannette Christensen Attending Unavail able Lala Ybarra, [facility] Referring Unavailabl e Lala Tate, [facility] Primary Care Unavailabl e Rob Olmedo Attending Unavailable Lala Ybarra, [facility] Primary Care Unavailabl e Lala Ybarra, [facility] Attending UnavailFrancisco Blanco Primary Care Unavailable Beam [facility], Calvinog Consulting Unavailable Lala Ybarra, [facility] Referring Unavailabl e Lala Tate, [facility] Primary Care Unavailabl e Lalarene Ybarra, [facility] Attending Unavailabl e Lala Ybarra, [facility] Primary Care Unavailabl e Cruzito [facility], Vivienne Attending Unavailable Cruzito [facility] Referring Unavailable [facility] Unavailabl e Cruzito Ame, Vivienne Attending Unavailable Cruzito [facility] Referring Unavailable Nayely Gregg Attending Unavailable Nayely Gregg Referring Unavailable [facility] Care Unavailabl e Lala Ybarra, [facility] Attending Unavailabl e Lala Ybarra, [facility] Primary Care Unavailabl e Assessment, Health Risk Attending Unavaila ble Beam [facility], Zebuog Primary Care Unavailable Allergies Allergy Classification Reported Allergen(s) Allergy Type Date of Onset Reaction(s) Facility (20 sources) Adhesive Tape; Translations: [adhesive tape] Allergy to substance 2 abrasion [facility] (20 sources) HYDROcodone; Translations: [HYDROCODONE] Drug Allergy 8 Other: See Comments [facility] (9 sources) flu vaccine Allergy to substance 2 Swelling [facility] (3 sources) Norethindrone Drug Allergy 3 Rash [facility] (8 sources) Influenza Vaccines Allergy to substance 3 Swelling [facility] (8 sources) Norethindrone Drug Allergy 3 Rash [facility] (4 sources) ADHESIVE TAPE-SILICONES; Translations: [ADHESIVE TAPE-SILICONES] Propensity to adverse reactions to drug (disorder) [facility] ([facility] source) HYDROcodone Drug Allergy 5 [facility] Repository (1 source) Norethindrone Drug Allergy 5 [facility] Repository (1 source) Influenza Virus Vaccines Drug allergy (disorder) 5 [facility] Repository Medications Current Medications Medication Drug Class(es) Dates Sig (Normalized) Sig (Original) [id number] 200 actuat albuterol 0.09 mg/actuat metered dose [...] 750 mg by mouth twice daily. 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, [address] Absolute Neut 4.2 X10 3/uL Normal 2.0-7.7 [facility] Comment on above: Performed By: #### L 500.2900, L100.0200, L400.0100 #### [facility] [address] [place], [address] Basophils/100 WBC (Bld) 0.5 % Normal 0-1 [facility] Comment on above: Performed By: #### L 500.2900, L100.0200, L400.0100 #### [facility] [address] [place], [address] Eosinophils/100 WBC (Bld) 1.2 % Normal 0-5 [facility] Comment on above: Performed By: #### L 500.2900, L100.0200, L400.0100 #### [facility] [address] [place], [address] Erythrocyte distribution width (RBC) [Ratio] 13.6 % Normal 11.6-14.6 [facility] Comment on above: Performed By: #### L 500.2900, L100.0200, L400.0100 #### [facility] [address] [place], [address] Hematocrit (Bld) [Volume fraction] 40.8 % Normal 37-47 [facility] Comment on above: Performed By: #### L 500.2900, L100.0200, L400.0100 #### [facility] [address] [place], [address] Hemoglobin (Bld) [Mass/Vol] 13.6 g/dL Normal 12.0-15.0 [facility] Comment on above: Performed By: #### L 500.2900, L100.0200, L400.0100 #### [facility] [address] [place], [address] Lymphocytes/100 WBC (Bld) 27.7 % Normal 19-41 [facility] Comment on above: Performed By: #### L 500.2900, L100.0200, L400.0100 #### [facility] [address] [place], [address] MCH (RBC) [Entitic mass] 28.8 pg Normal 27.0-32.0 [facility] Comment on above: Performed By: #### L 500.2900, L100.0200, L400.0100 #### [facility] [address] [place], [address] MCHC (RBC) [Mass/Vol] 33.3 g/dL Normal 32-36 [facility] Comment on above: Performed By: #### L 500.2900, L100.0200, L400.0100 #### [facility] [address] [place], [address] MCV (RBC) [Entitic vol] 86.4 fL Normal 81-99 [facility] Comment on above: Performed By: #### L 500.2900, L100.0200, L400.0100 #### [facility] [address] [place], [address] Monocytes/100 WBC (Bld) 7.0 % Normal 0-10 [facility] Comment on above: Performed By: #### L 500.2900, L100.0200, L400.0100 #### [facility] [address] [place], [address] Neutrophils/100 WBC (Bld) 63.3 % Normal 47-70 [facility] Comment on above: Performed By: #### L 500.2900, L100.0200, L400.0100 #### [facility] [address] [place], [address] NRBC # 0.00 10 3/uL Normal 0-5 [facility] Comment on above: Performed By: #### L 500.2900, L100.0200, L400.0100 #### [facility] [address] [place], [address] Nucleated RBC (Bld) [#/Vol] 0 10*3/uL Normal 0-5 [facility] Comment on above: Performed By: #### L 500.2900, L100.0200, L400.0100 #### [facility] [address] [place], [address] Platelet mean volume (Bld) [Entitic vol] 12.7 fL High 6.2-12.0 [facility] Comment on above: Performed By: #### L 500.2900, L100.0200, L400.0100 #### [facility] [address] [place], [address] Platelets (Bld) [#/Vol] 304 10*3/uL Normal 150-450 [facility] Comment on above: Performed By: #### L 500.2900, L100.0200, L400.0100 #### [facility] [address] [place], [address] RBC (Bld) [#/Vol] 4.72 10*6/uL Normal 4.2-5.4 [facility] Comment on above: Performed By: #### L 500.2900, L100.0200, L400.0100 #### [facility] [address] [place], [address] RDW SD 42.3 fl Normal 35.1-43.9 [facility] Comment on above: Performed By: #### L 500.2900, L100.0200, L400.0100 #### [facility] [address] [place], [address] WBC (Bld) [#/Vol] 6.6 10*3/uL Normal 4.4-11.0 [facility] Comment on above: Performed By: #### L 500.2900, L100.0200, L400.0100 #### [facility] [address] [place], [address] Employee Profileon 5 LDH 216 U/L Normal 84-246 [facility] Comment on above: Performed By: #### L 500.2900, L100.0200, L400.0100 #### [facility] [address] [place], [address] Phosphate [Mass/Vol] 3.4 mg/dL Normal 2.7-4.[address] [facility] Comment on above: Performed By: #### L 500.2900, L100.0200, L400.0100 #### [facility] [address] [place], [address] URIC 4.7 mg/dL Normal 2.6-6.0 [facility] Comment on above: Result Comment: The drugs N-Acetylcysteine and Metamizole may falsely depress this assay. Performed By: #### L 500.2900, L100.0200, L400.0100 #### [facility] [address] [place], [address] Urinalysis, Employeeon 07-12 BILIRUBIN URINE Negative Normal Negative [facility] Comment on above: Order Comment: CLEAN CATCH Performed By: #### L 500.2900, L100.0200, L400.0100 #### [facility] [address] [place], [address] Clarity (U) Cloudy Normal Clear [facility] Comment on above: Order Comment: CLEAN CATCH Performed By: #### L 500.2900, L100.0200, L400.0100 #### [facility] [address] [place], [address] Color (U) Yellow Normal Yellow [facility] Comment on above: Order Comment: CLEAN CATCH Performed By: #### L 500.2900, L100.0200, L400.0100 #### [facility] [address] [place], [address] GLUCOSE, UR Normal Normal Normal [facility] Comment on above: Order Comment: CLEAN CATCH Performed By: #### L 500.2900, L100.0200, L400.0100 #### [facility] [address] [place], [address] KETONE UR Negative Normal Negative [facility] Comment on above: Order Comment: CLEAN CATCH Performed By: #### L 500.2900, L100.0200, L400.0100 #### [facility] [address] [place], [address] LEUK ESTERASE 100 /ul Abnormal Negative [facility] Comment on above: Order Comment: CLEAN CATCH Performed By: #### L 500.2900, L100.0200, L400.0100 #### [facility] [address] [place], [address] Nitrite Ql (U) Negative Normal Negative [facility] Comment on above: Order Comment: CLEAN CATCH Performed By: #### L 500.2900, L100.0200, L400.0100 #### [facility] [address] [place], [address] OCCULT BLOOD-UR Negative Normal Negative [facility] Comment on above: Order Comment: CLEAN CATCH Performed By: #### L 500.2900, L100.0200, L400.0100 #### [facility] [address] [place], [address] pH UR 6.0 Normal 5.0 - 8.0 [facility] Comment on above: Order Comment: CLEAN CATCH Performed By: #### L 500.2900, L100.0200, L400.0100 #### [facility] [address] [place], [address] PROT DIPSTX 30 mg/dl Abnormal Negative [facility] Comment on above: Order Comment: CLEAN CATCH Performed By: #### L 500.2900, L100.0200, L400.0100 #### [facility] [address] [place], [address] SP.GR. DIPSTX 1.020 Normal 1.002-1.03 0 [facility] Comment on above: Order Comment: CLEAN CATCH Performed By: #### L 500.2900, L100.0200, L400.0100 #### [facility] [address] [place], [address] UROBILI Normal Normal Normal [facility] Comment on above: Order Comment: CLEAN CATCH Performed By: #### L 500.2900, L100.0200, L400.0100 #### [facility] [address] [place], [address] Echo Completeon 05-30-2025 Echo Complete [facility] [address] [place] [address] Echo Complete 05/30/25 0706 MR#: [id number] Acct: [id number] Name: KATIE PULLIAM Rep #: [id number] : 1995 From: Rob Olmedo MD Attending [...] noted. Ordering Physician: Jannette Wilcox Referring Physician: aLla Ybarra Performed By: Jerri Garcia, TODD, RVT 05/30/25 1140 Date Rob Olmedo MD CC: VSC SAW FILER-C Lala Ybarra; MERT Phillips Date Dictated: 05/30/25 07 Date Transcribed: 05/30/25 1140 [employer] Controls Operator: Signed Normal [facility] Echocardiogram study reportO rdered By: Rob Olmedo on 05-30-2025 Study report [facility] [address] [place] [address] Echo Complete 05/30/25705 MR#: [id number] Acct: [id number] Name: KATIE PULLIAM Rep #:[id number] : 1995 30 From: Rob Mathis Attending Dr: MERT Phillips Status: REG CLI Ordering Dr: Jannette Wilcox PA Date: 05/30/25 Location: [facility] Sex: F C Admitted: Reason For Study [...] V2 max: 105.7 cm/sec MV P1/2t max el: 107.2 cm/sec Ao V2 max: 143.7 cm/sec [...] Date _ Rob Olmedo MD CC: VSC SAW FILER-C Lala Ybarra; MERT Phillips ~ Date Dictated: 05/30/25705 Date Transcribed: 05/30/25 1140 [employer] Controls Operator: Signed [facility] Work Phone: Cardiology Visit Reporton Cardiology Visit Report [facility] [address] [place] [address] OFFICE VISIT Date of Service: 05/12/25 MR#: [id number] Acct: [id number] Name: KATIE UPLLIAM Rep #: [id number] : 1995 Provider: MERT Alicea Age/Sex: 30/F [place] [facility] Status: Signed HPI HPI History of Present Illness Details: KATIE CHENG, is a 30 year old white female who presents to the office today for outpatient cardiovascular follow up based upon concerns of underlying of congenital pulmonic stenosis. She had previously been followed through [facility]. 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 Normal [facility] Insulin Levelon 04-07-2025 INSULIN,FASTING 10.8 uIU/mL Normal 2.6-24.9 [facility] Comment on above: Result Comment: Perf ormed at: - [facility] [address] [id number] [employer] Application Developer: Roque Soriano PhD, Phone: [phone] Performed By: #### L 500.4050, L505.5000, L501.9985, L501.9520, L100.0100, L506.0400, L3300.3500, L500.4100 ####[facility] [address] [place], [address] Absolute lymphocyte countOrd ered By: [facility] Lala Ybarra on 04-05-2025 Lymphocytes Auto (Unsp spec) [#/Vol] 1.95 10*3/uL 0.83-4.51 [facility] Absolute neutrophil countOrd ered By: [facility] Lala Ybarra on 04-05-2025 Neutrophils (Bld) [#/Vol] 4.7 10*3/uL 2.0-7.7 [facility] Amphetamine detection with 1 000 ng/mL as cutoffOrdered By: [facility] Lala Tate on 04-05-2025 Amphetamines Screen method >1000 ng/mL Ql (U) Negative < 200 ng/mL [facility] Anion gap in Serum or Plasma Ordered By: [facility] on 04-05-2025 Anion gap [Moles/Vol] 11 mmol/L 5-15 [facility] Automated lymphocyte count a s percentage of total leukocytesOrdered By: [facility] Tate on 04-05-2025 Lymphocytes/100 WBC Auto (Unsp spec) 26.9 % 19-41 [facility] BUN/creatinine ratioOrdered By: [facility] Tate on 04-05-2025 Urea nitrogen/Creatinine [Mass ratio] 17.0 mg/mg 10-20 [facility] Basophil percentageOrdered B y: [facility] Y[facility] on 04-05-2025 Basophils/100 WBC (Bld) 0.3 % 0-1 [facility] Bilirubin, totalOrdered By: [facility] Tate on 04-05-2025 Bilirubin [Mass/Vol] 0.31 mg/dL 0.00-1.[address] [facility] CBC W/Diff, Automatedon 03-26 Absolute Lymph 1.95 X10 3/uL Normal 0.83-4.51 [facility] Comment on above: Performed By: #### L 500.4050, L505.5000, L501.9985, L501.9520, L100.0100, L506.0400, L3300.3500, L500.4100 ####[facility] [address] [place], [address] Absolute Neut 4.7 X10 3/uL Normal 2.0-7.7 [facility] Comment on above: Performed By: #### L 500.4050, L505.5000, L501.9985, L501.9520, L100.0100, L506.0400, L3300.3500, L500.4100 ####[facility] [address] [place], [address] Basophils/100 WBC (Bld) 0.3 % Normal 0-1 [facility] Comment on above: Performed By: #### L 500.4050, L505.5000, L501.9985, L501.9520, L100.0100, L506.0400, L3300.3500, L500.4100 ####[facility] [address] [place], [address] Eosinophils/100 WBC (Bld) 1.5 % Normal 0-5 [facility] Comment on above: Performed By: #### L 500.4050, L505.5000, L501.9985, L501.9520, L100.0100, L506.0400, L3300.3500, L500.4100 ####[facility] [address] [place], [address] Erythrocyte distribution width (RBC) [Ratio] 13.8 % Normal 11.6-14.6 [facility] Comment on above: Performed By: #### L 500.4050, L505.5000, L501.9985, L501.9520, L100.0100, L506.0400, L3300.3500, L500.4100 ####[facility] [address] [place], [address] Hematocrit (Bld) [Volume fraction] 39.2 % Normal 37-47 [facility] Comment on above: Performed By: #### L 500.4050, L505.5000, L501.9985, L501.9520, L100.0100, L506.0400, L3300.3500, L500.4100 ####[facility] [address] [place], [address] Hemoglobin (Bld) [Mass/Vol] 13.0 g/dL Normal 12.0-15.0 [facility] Comment on above: Performed By: #### L 500.4050, L505.5000, L501.9985, L501.9520, L100.0100, L506.0400, L3300.3500, L500.4100 ####[facility] [address] [place], [address] IG% 0.300 Normal 0.0-0.9 [facility] Comment on above: Result Comment: IG% - Immature Granulocytes (promyelocytes, myelocytes and metamyelocytes) > 1% indicates that a LEFT SHIFT is Present. Performed By: #### L 500.4050, L505.5000, L501.9985, L501.9520, L100.0100, L506.0400, L3300.3500, L500.4100 ####[facility] [address] [place], [address] Lymphocytes/100 WBC (Bld) 26.9 % Normal 19-41 [facility] Comment on above: Performed By: #### L 500.4050, L505.5000, L501.9985, L501.9520, L100.0100, L506.0400, L3300.3500, L500.4100 ####[facility] [address] [place], [address] MCH (RBC) [Entitic mass] 28.0 pg Normal 27.0-32.0 [facility] Comment on above: Performed By: #### L 500.4050, L505.5000, L501.9985, L501.9520, L100.0100, L506.0400, L3300.3500, L500.4100 ####[facility] [address] [place], [address] MCHC (RBC) [Mass/Vol] 33.2 g/dL Normal 32-36 [facility] Comment on above: Performed By: #### L 500.4050, L505.5000, L501.9985, L501.9520, L100.0100, L506.0400, L3300.3500, L500.4100 ####[facility] [address] [place], [address] MCV (RBC) [Entitic vol] 84.5 fL Normal 81-99 [facility] Comment on above: Performed By: #### L 500.4050, L505.5000, L501.9985, L501.9520, L100.0100, L506.0400, L3300.3500, L500.4100 ####[facility] [address] [place], [address] Monocytes/100 WBC (Bld) 6.3 % Normal 0-10 [facility] Comment on above: Performed By: #### L 500.4050, L505.5000, L501.9985, L501.9520, L100.0100, L506.0400, L3300.3500, L500.4100 ####[facility] [address] [place], [address] Neutrophils/100 WBC (Bld) 64.7 % Normal 47-70 [facility] Comment on above: Performed By: #### L 500.4050, L505.5000, L501.9985, L501.9520, L100.0100, L506.0400, L3300.3500, L500.4100 ####[facility] [address] [facility] [place], [address] Nucleated RBC (Bld) [#/Vol] 0 10*3/uL Normal 0-5 [facility] Comment on above: Performed By: #### L 500.4050, L505.5000, L501.9985, L501.9520, L100.0100, L506.0400, L3300.3500, L500.4100 ####[facility] [address] [place], [address] Platelet mean volume (Bld) [Entitic vol] 11.8 fL Normal 6.2-12.0 [facility] Comment on above: Performed By: #### L 500.4050, L505.5000, L501.9985, L501.9520, L100.0100, L506.0400, L3300.3500, L500.4100 ####[facility] [address], [address] Platelets (Bld) [#/Vol] 293 10*3/uL Normal 150-450 [facility] Comment on above: Performed By: #### L 500.4050, L505.5000, L501.9985, L501.9520, L100.0100, L506.0400, L3300.3500, L500.4100 ####[facility] [address] [place], [address] RBC (Bld) [#/Vol] 4.64 10*6/uL Normal 4.2-5.4 [facility] Comment on above: Performed By: #### L 500.4050, L505.5000, L501.9985, L501.9520, L100.0100, L506.0400, L3300.3500, L500.4100 ####[facility] [address] [facility] [place], [address] RDW SD 42.2 fl Normal 35.1-43.9 [facility] Comment on above: Performed By: #### L 500.4050, L505.5000, L501.9985, L501.9520, L100.0100, L506.0400, L3300.3500, L500.4100 ####[facility] [address] [place], [address] WBC (Bld) [#/Vol] 7.3 10*3/uL Normal 4.4-11.0 [facility] Comment on above: Performed By: #### L 500.4050, L505.5000, L501.9985, L501.9520, L100.0100, L506.0400, L3300.3500, L500.4100 ####[facility] [address], [address] Calculated very low density lipoprotein (VLDL) cholesterol measurementOrdered By: [facility] Lala Tate on 04-05-2025 Calculated very low density lipoprotein (VLDL) cholesterol measurement 16 mg/dL 5-40 [facility] Carbon dioxide, total [Moles /volume] in Central venous bloodOrdered By: [facility] Lala Ybarra on 04-05-2025 CO2 [Moles/Vol] 19.5 mmol/L Low 21.0-32.0 [facility] Chloride assayOrdered By: [facility] Lalayina Ybarra on 04-05-2025 Chloride [Moles/Vol] 107 mmol/L 98-[address] [facility] Comprehensive Metabolic Prof ilon 04-05-2025 Albumin [Mass/Vol] 4.0 g/dL Normal 3.5-5.0 [facility] Comment on above: Performed By: #### L 500.4050, L505.5000, L501.9985, L501.9520, L100.0100, L506.0400, L3300.3500, L500.4100 ####[facility] [address] [place], [address] Albumin/Globulin [Mass ratio] 1.3 {ratio} Normal 0.9-2.4 [facility] Comment on above: Performed By: #### L 500.4050, L505.5000, L501.9985, L501.9520, L100.0100, L506.0400, L3300.3500, L500.4100 ####[facility] [address] [place], [address] ALK PHOS 76 U/L Normal 35-104 [facility] Comment on above: Performed By: #### L 500.4050, L505.5000, L501.9985, L501.9520, L100.0100, L506.0400, L3300.3500, L500.4100 ####[facility] [address] [place], [address] ALT [Catalytic activity/Vol] 14 U/L Normal <=34 [facility] Comment on above: Performed By: #### L 500.4050, L505.5000, L501.9985, L501.9520, L100.0100, L506.0400, L3300.3500, L500.4100 ####[facility] [address] [place], [address] AST [Catalytic activity/Vol] 21 U/L Normal <=31 [facility] Comment on above: Performed By: #### L 500.4050, L505.5000, L501.9985, L501.9520, L100.0100, L506.0400, L3300.3500, L500.4100 ####[facility] [address] [place], [address] Bilirubin [Mass/Vol] 0.31 mg/dL Normal 0.00-1.[address] [facility] Comment on above: Performed By: #### L 500.4050, L505.5000, L501.9985, L501.9520, L100.0100, L506.0400, L3300.3500, L500.4100 ####[facility] [address] [place], [address] BUN/CRE 17.0 RATIO Normal 10-20 [facility] Comment on above: Performed By: #### L 500.4050, L505.5000, L501.9985, L501.9520, L100.0100, L506.0400, L3300.3500, L500.4100 ####[facility] [address] [place], [address] Calcium [Mass/Vol] 8.9 mg/dL Normal 7.6-11.0 [facility] Comment on above: Performed By: #### L 500.4050, L505.5000, L501.9985, L501.9520, L100.0100, L506.0400, L3300.3500, L500.4100 ####[facility] [address] [place], [address] Chloride [Moles/Vol] 107 mmol/L Normal 98-[address] [facility] Comment on above: Performed By: #### L 500.4050, L505.5000, L501.9985, L501.9520, L100.0100, L506.0400, L3300.3500, L500.4100 ####[facility] [address] [place], [address] CO2 [Moles/Vol] 19.5 mmol/L Low 21.0-32.0 [facility] Comment on above: Performed By: #### L 500.4050, L505.5000, L501.9985, L501.9520, L100.0100, L506.0400, L3300.3500, L500.4100 ####[facility] [address] [place], [address] Creatinine [Mass/Vol] 0.64 mg/dL Low 0.70-1.20 [facility] Comment on above: Performed By: #### L 500.4050, L505.5000, L501.9985, L501.9520, L100.0100, L506.0400, L3300.3500, L500.4100 ####[facility] [address] [place], [address] GAP 11 Normal 5-15 [facility] Comment on above: Performed By: #### L 500.4050, L505.5000, L501.9985, L501.9520, L100.0100, L506.0400, L3300.3500, L500.4100 ####[facility] [address] [place], [address] GFR/1.73 sq M.predicted among non-blacks MDRD (S/P/Bld) [Vol rate/Area] 123 mL/min/{1.73_m2} Normal >60 [facility] Comment on above: Result Comment: mL/m in/1.73m2 CKD-EPI Creatinine Equation (2020) Performed By: #### L 500.4050, L505.5000, L501.9985, L501.9520, L100.0100, L506.0400, L3300.3500, L500.4100 ####[facility] [address] [place], [address] Globulin (S) [Mass/Vol] 3.1 g/dL Normal 2.2-4.2 [facility] Comment on above: Performed By: #### L 500.4050, L505.5000, L501.9985, L501.9520, L100.0100, L506.0400, L3300.3500, L500.4100 ####[facility] [address] [place], [address] Glucose [Mass/Vol] 92 mg/dL Normal 70-99 [facility] Comment on above: Performed By: #### L 500.4050, L505.5000, L501.9985, L501.9520, L100.0100, L506.0400, L3300.3500, L500.4100 ####[facility] [address] [place], [address] Potassium [Moles/Vol] 4.0 mmol/L Normal 3.3-5.1 [facility] Comment on above: Performed By: #### L 500.4050, L505.5000, L501.9985, L501.9520, L100.0100, L506.0400, L3300.3500, L500.4100 ####[facility] [address] [place], [address] Sodium [Moles/Vol] 138 mmol/L Normal 133-145 [facility] Comment on above: Performed By: #### L 500.4050, L505.5000, L501.9985, L501.9520, L100.0100, L506.0400, L3300.3500, L500.4100 ####[facility] [address], [address] T PROT 7.1 g/dL Normal 5.9-8.4 [facility] Comment on above: Performed By: #### L 500.4050, L505.5000, L501.9985, L501.9520, L100.0100, L506.0400, L3300.3500, L500.4100 ####[facility] [address] [place], [address] Urea nitrogen [Mass/Vol] 11 mg/dL Normal 4-19 [facility] Comment on above: Performed By: #### L 500.4050, L505.5000, L501.9985, L501.9520, L100.0100, L506.0400, L3300.3500, L500.4100 ####[facility] [address] [place], [address] Eosinophil percentageOrdered By: [facility] Lala Ybarra on 04-05-2025 Eosinophils/100 WBC (Bld) 1.5 % 0-5 [facility] Erythrocyte distribution wid th ratioOrdered By: [facility] Lala Ybarra on 04-05-2025 Erythrocyte distribution width (RBC) [Ratio] 13.8 % 11.6-14.6 [facility] Erythrocyte distribution wid th standard deviationOrdered By: [facility] Lala Ybarra on 04-05-2025 Erythrocyte distribution width (RBC) [Ratio] 42.2 fl 35.1-43.9 [facility] Glomerular filtration rate ( GFR) estimation/1.73 sq m using serum, plasma, or whole bOrdered By: [facility] Lala Ybarra on 04-05-2025 GFR/1.73 sq M.predicted among non-blacks MDRD (S/P/Bld) [Vol rate/Area] 123 mL/min/{1.73_m2} >60 [facility] Comment on above: mL/min/1.73m2 CKD-EP I Creatinine Equation (2020) Hematocrit Auto (Bld) [Volum e fraction]Ordered By: [facility] Lala Ybarra on 04-05-2025 Hematocrit (Bld) [Volume fraction] 39.2 % 37-47 [facility] Hemoglobin A1con 04-05-2025 HbA1c (Bld) [Mass fraction] 5.6 % Normal <=5.6 [facility] Comment on above: Result Comment: Norm al < 5.7 % Prediabetic 5.7 - 6.4 % Diabetic >or= 6.5 % Please note range changes. Performed By: #### L 500.4050, L505.5000, L501.9985, L501.9520, L100.0100, L506.0400, L3300.3500, L500.4100 ####[facility] [address] [place], [address] Hemoglobin A1c percentageOrd ered By: [facility] Lala Ybarra on 04-05-2025 HbA1c (Bld) [Mass fraction] 5.6 % <5.7 [facility] Comment on above: Normal < 5.7 % Predi abetic 5.7 - 6.4 % Diabetic >or= 6.5 % Please note range changes. Hemoglobin measurementOrdere d By: [facility] Lala Ybarra on 04-05-2025 Hemoglobin (Bld) [Mass/Vol] 13.0 g/dL 12.0-15.0 [facility] Immature granulocytes/100 WB C Auto (Bld)Ordered By: [facility] Lala Ybarra on 04-05-2025 Immature granulocytes/100 WBC (Bld) 0.300 % 0.0-0.9 [facility] Comment on above: IG% - Immature Granu locytes (promyelocytes, myelocytes and metamyelocytes) > 1% indicates that a LEFT SHIFT is Present. LDL calc ser/plasOrdered By: [facility] Lala Ybarra on 04-05-2025 Cholesterol in LDL [Mass/Vol] 95 mg/dL [facility] Comment on above: Nmtqkknies=026-164 m g/dL & Higher Qjsa=610 mg/dL or greater Laboratory - Chemistry and C hemistry - challengeOrdered By: [facility] Lalayina Ybarra on 04-05-2025 AST [Catalytic activity/Vol] 21 U/L <32 [facility] Lipid Profileon 04-05-2025 CHOL:HDL 3.25 Normal [facility] Comment on above: Performed By: #### L 500.4050, L505.5000, L501.9985, L501.9520, L100.0100, L506.0400, L3300.3500, L500.4100 ####[facility] [address] [place], [place], [phone] Cholesterol [Mass/Vol] 161 mg/dL Normal <=200 [facility] Comment on above: Result Comment: Chol esterol level, Desirable <200 mg/dL Borderline high cholesterol 200-239 mg/dL High cholesterol >=240 mg/dL Recommendations of the NCEP Adult Treatment Panel for the following risk-cutoff thresholds for the [place] population. Performed By: #### L 500.4050, L505.5000, L501.9985, L501.9520, L100.0100, L506.0400, L3300.3500, L500.4100 ####[facility] [address] [place], [place], [phone] Cholesterol in HDL [Mass/Vol] 50 mg/dL Normal [facility] Comment on above: Result Comment: Mishel onal Cholesterol Education Program (NCEP) guidelines: <40 mg/dL: Low HDL-cholesterol (major risk factor for CHD) >= 60 mg/dL: High HDL-cholesterol (negative risk factor for CHD) HDL-cholesterol is affected by a number of factors, e.g. smoking, exercise, hormones, sex and age. Performed By: #### L 500.4050, L505.5000, L501.9985, L501.9520, L100.0100, L506.0400, L3300.3500, L500.4100 ####[facility] [address] [place], [address] Cholesterol in LDL [Mass/Vol] 95 mg/dL Normal [facility] Comment on above: Result Comment: Bord dujkbj=540-340 mg/dL Higher Ynky=939 mg/dL or greater Performed By: #### L 500.4050, L505.5000, L501.9985, L501.9520, L100.0100, L506.0400, L3300.3500, L500.4100 ####[facility] [address] [place], [address] Cholesterol in VLDL [Mass/Vol] 16 mg/dL Normal 5-40 [facility] Comment on above: Performed By: #### L 500.4050, L505.5000, L501.9985, L501.9520, L100.0100, L506.0400, L3300.3500, L500.4100 ####[facility] [address] [place], [address] Triglyceride [Mass/Vol] 80 mg/dL Normal [facility] Comment on above: Result Comment: The drugs N-Acetylcysteine and Metamizole may falsely depress this assay. Normal range: <150 mg/dL Borderline High: 150-199 mg/dL High: 200-499 mg/dL Very High: >500 mg/dL Performed By: #### L 500.4050, L505.5000, L501.9985, L501.9520, L100.0100, L506.0400, L3300.3500, L500.4100 ####[facility] [address] [place], [place], [id number] MCV (mean corpuscular volume ) determinationOrdered By: [facility] Lala Ybarra on 04-05-2025 MCV (RBC) [Entitic vol] 84.5 fL 81-99 [facility] Mean corpuscular hemoglobin (MCH) determinationOrdered By: [facility] Lala Ybarra on 04-05-2025 MCH (RBC) [Entitic mass] 28.0 pg 27.0-32.0 [facility] Mean corpuscular hemoglobin concentration (MCHC) determinationOrdered By: [facility] Lala Tate on 04-05-2025 MCHC (RBC) [Mass/Vol] 33.2 g/dL 32-36 [facility] Mean platelet volume determi nationOrdered By: [facility] Lala Tate on 04-05-2025 Platelet mean volume (Bld) [Entitic vol] 11.8 fL 6.2-12.0 [facility] Monocyte percentageOrdered B y: [facility] Lalayina Ybarra on 04-05-2025 Monocytes/100 WBC (Bld) 6.3 % 0-10 [facility] Neutrophil percentageOrdered By: [facility] Lala Tate on 04-05-2025 Neutrophils/100 WBC (Bld) 64.7 % 47-70 [facility] No Panel InformationOrdered By: [facility] Lala Tate on 04-05-2025 Urine Buprenorphine Qualitative Negative < 200 ng/mL [facility] Urine Oxycodone Screen Negative < 100 ng/mL [facility] Nucleated red blood cell per centageOrdered By: [facility] Lala Tate on 04-05-2025 Nucleated RBC/100 WBC (Bld) [Ratio] 0 % 0-5 [facility] Office Visit Reporton 2024 Office Visit Report [facility] [address] [place] [address] OFFICE VISIT Date of Service: 12/29/24 MR#: [id number] Acct: [id number] Patient: KATIE PULLIAM Rep #: [id number] : 1995 Provider: UZIEL Drake Age/Sex: 30/F [place] [facility] [place] Status: Signed Intake Vital Signs 12/07/24 09:08 Height 5 ft 2 in 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/ [facility] Chief Complaint: 6Month FU Allergies adhesive [...] Decrease spasm 04/26/25 0612 Date Demario Noelle SAW FILER-C Cosigner Signature: Date (if applicable) CC: Normal [facility] Platelet countOrdered By: BERTIN Ybarra on 04-05-2025 Platelets (Bld) [#/Vol] 293 10*3/uL 150-450 [facility] Potassium measurement (mass/ volume)Ordered By: ESTUARDO Ybarra on 04-05-2025 Potassium (Unsp spec) [Mass/Vol] 4.0 mmol/L 3.3-5.1 [facility] Quantitative urine opiates m easurementOrdered By: ESTUARDO Ybarra on 04-05-2025 Opiates Ql (U) Negative < 300 ng/mL [facility] RBC Auto (Bld) [#/Vol]Ordere d By: ESTUARDO Ybarra on 04-05-2025 RBC (Bld) [#/Vol] 4.64 10*6/uL 4.2-5.4 [facility] Screening total cholesterol/ high density lipoprotein (HDL) cholesterol ratioOrdered By: ESTUARDO Ybarra on 04-05-2025 Cholesterol.total/Dotty sterol in HDL [Mass ratio] 3.25 {ratio} [facility] Screening urine fentanyl thierno surementOrdered By: VSC Lala Ybarra on 04-05-2025 fentaNYL Screen Ql (U) Negative [facility] Serum creatinine measurement (mass/volume)Ordered By: [facility] Lala Ybarra on 04-05-2025 Creatinine [Mass/Vol] 0.64 mg/dL Low 0.70-1.20 [facility] Serum globulin measurementOr dered By: [facility] Lala Ybarra on 04-05-2025 Globulin (S) [Mass/Vol] 3.1 g/dL 2.2-4.2 [facility] Serum glucose measurement (m ass/volume)Ordered By: [facility] Lala Ybarra on 04-05-2025 Glucose [Mass/Vol] 92 mg/dL 70-99 [facility] Serum or plasma alanine perrin otransferase (ALT) measurementOrdered By: [facility] Lala Ybarra on 04-05-2025 ALT [Catalytic activity/Vol] 14 U/L <35 [facility] Serum or plasma albumin raad urement (mass/volume)Ordered By: [facility] Lala Ybarra on 04-05-2025 Albumin [Mass/Vol] 4.0 g/dL 3.5-5.0 [facility] Serum or plasma albumin/glob ulin mass ratioOrdered By: [facility] Lala Ybarra on 04-05-2025 Albumin/Globulin [Mass ratio] 1.3 {ratio} 0.9-2.4 [facility] Serum or plasma alkaline peterson sphatase measurementOrdered By: [facility] Lala Ybarra on 04-05-2025 ALP [Catalytic activity/Vol] 76 U/L 35-104 [facility] Serum or plasma calcium raad urement (mass/volume)Ordered By: [facility] Lala Ybarra on 04-05-2025 Calcium [Mass/Vol] 8.9 mg/dL 7.6-11.0 [facility] Serum or plasma cholesterol in HDL measurement (mass/volume)Ordered By: [facility] Lala Ybarra on 04-05-2025 Cholesterol in HDL [Mass/Vol] 50 mg/dL >40 [facility] Comment on above: National Cholesterol Education Program (NCEP) guidelines:<40 mg/dL: Low HDL-cholesterol (major risk factor for CHD)>= 60 mg/dL: High HDL-cholesterol (negative risk factor for CHD)HDL-cholesterol is affected by a number of factors, e.g. smoking, exercise, hormones, sex and age. Serum or plasma cholesterol measurement (mass/volume)Ordered By: [facility] Lala Ybarra on 04-05-2025 Cholesterol [Mass/Vol] 161 mg/dL <201 [facility] Comment on above: Cholesterol level, D esirable <200 mg/dLBorderline high cholesterol 200-239 mg/dLHigh cholesterol >=240 mg/dLRecommendations of the NCEP Adult Treatment Panel for the following risk-cutoff thresholds for the [place] population. Serum or plasma insulin raad urement (mass/volume)Ordered By: [facility] Lala Ybarra on 04-05-2025 Insulin [Mass/Vol] 10.8 uIU/mL 2.6-24.9 [facility] Comment on above: Performed at: [place] [id number] Director: Roque Soriano PhD, Phone: [phone] Serum or plasma urea nitroge n measurement (mass/volume)Ordered By: [facility] Lala Ybarra on 04-05-2025 Urea nitrogen [Mass/Vol] 11 mg/dL 4-19 [facility] Sodium levelOrdered By: [facility] Lala Ybarra on 04-05-2025 Sodium [Moles/Vol] 138 mmol/L 133-145 [facility] T4 Free Directon 04-05-2025 T4 FREE DIRECT 0.90 ng/dL Normal 0.76-1.46 [facility] Comment on above: Performed By: #### L 500.4050, L505.5000, L501.9985, L501.9520, L100.0100, L506.0400, L3300.3500, L500.4100 ####[facility] [id number] [place], [address] T4 freeOrdered By: [facility] Jeni Ybarra on 04-05-2025 Free T4 [Mass/Vol] 0.90 ng/dL 0.76-1.46 [facility] TSH DL <= 0.005 mIU/L QnOrde red By: [facility] [facility] Lala Ybarra on 04-05-2025 TSH Qn 2.050 uIU/mL 0.300-4.20 0 [facility] Thyroid Stim Hormone (TSH)on 04-05-2025 TSH 2.050 uIU/mL Normal 0.300-4.20 0 [facility] Comment on above: Performed By: #### L 500.4050, L505.5000, L501.9985, L501.9520, L100.0100, L506.0400, L3300.3500, L500.4100 ####[facility] [address] [place], [place], [id number] Total proteinOrdered By: [facility] Lala Tate on 04-05-2025 Protein [Mass/Vol] 7.1 g/dL 5.9-8.4 [facility] Triglycerides measurementOrd ered By: [facility] Lala Tate on 04-05-2025 Triglyceride [Mass/Vol] 80 mg/dL <199 [facility] Comment on above: The drugs N-Acetylcy steine and Metamizole may falsely depress this assay. Normal range: <150 mg/dLBorderline High: 150-199 mg/dLHigh: 200-499 mg/dLVery High: >500 mg/dL Urine Drug Screen (VISTA)on 04-05-2025 AMPHETAMINES Negative Normal <1000 ng/mL [facility] Comment on above: Order Comment: UNK Performed By: #### L 500.4050, L505.5000, L501.9985, L501.9520, L100.0100, L506.0400, L3300.3500, L500.4100 ####[facility] [address] [place], [place], [phone] BARBITIURATES Negative Normal < 200 ng/mL [facility] Comment on above: Order Comment: UNK Performed By: #### L 500.4050, L505.5000, L501.9985, L501.9520, L100.0100, L506.0400, L3300.3500, L500.4100 ####[facility] [address] [place], [place], [phone] BENZODIAZIPINE Negative Normal < 200 ng/mL [facility] Comment on above: Order Comment: UNK Performed By: #### L 500.4050, L505.5000, L501.9985, L501.9520, L100.0100, L506.0400, L3300.3500, L500.4100 ####[facility] [address] [place], [address] BUP Ur Drug Scr Negative Normal < 200 ng/mL [facility] Comment on above: Order Comment: UNK Performed By: #### L 500.4050, L505.5000, L501.9985, L501.9520, L100.0100, L506.0400, L3300.3500, L500.4100 ####[facility] [address] [place], [address] COCAINE Negative Normal < 300 ng/mL [facility] Comment on above: Order Comment: UNK Performed By: #### L 500.4050, L505.5000, L501.9985, L501.9520, L100.0100, L506.0400, L3300.3500, L500.4100 ####[facility] [address] [place], [address] Fentanyl Negative Normal [facility] Comment on above: Order Comment: UNK Performed By: #### L 500.4050, L505.5000, L501.9985, L501.9520, L100.0100, L506.0400, L3300.3500, L500.4100 ####[facility] [address] [place], [address] METHADONE Negative Normal < 300 ng/mL [facility] Comment on above: Order Comment: UNK Performed By: #### L 500.4050, L505.5000, L501.9985, L501.9520, L100.0100, L506.0400, L3300.3500, L500.4100 ####[facility] [address] [place], [address] OPIATES Negative Normal < 300 ng/mL [facility] Comment on above: Order Comment: UNK Performed By: #### L 500.4050, L505.5000, L501.9985, L501.9520, L100.0100, L506.0400, L3300.3500, L500.4100 ####[facility] [address] [place], [address] OXYCODONE Negative Normal < 100 ng/mL [facility] Comment on above: Order Comment: UNK Performed By: #### L 500.4050, L505.5000, L501.9985, L501.9520, L100.0100, L506.0400, L3300.3500, L500.4100 ####[facility] [address] [place], [address] PCP Negative Normal < 25 ng/mL [facility] Comment on above: Order Comment: UNK Performed By: #### L 500.4050, L505.5000, L501.9985, L501.9520, L100.0100, L506.0400, L3300.3500, L500.4100 ####[facility] [address] [place], [place], [phone] THC Negative Normal < 50 ng/mL [facility] Comment on above: Order Comment: UNK Performed By: #### L 500.4050, L505.5000, L501.9985, L501.9520, L100.0100, L506.0400, L3300.3500, L500.4100 ####[facility] [address] [place], [address] Urine benzodiazepine levelOr dered By: [facility] Lala Ybarra on 04-05-2025 Benzodiazepines Ql (U) Negative < 200 ng/mL [facility] Urine cocaine levelOrdered B y: [facility] Lala Ybarra on 04-05-2025 Cocaine Ql (U) Negative < 300 ng/mL [facility] Urine xhxxv-8-vjuwqongwucmhl abinol (THC) measurementOrdered By: [facility] Lala Ybarra on 04-05-2025 Cannabinoids Screen Ql (U) Negative < 50 ng/mL [facility] Urine phencyclidine (PCP) de tectionOrdered By: [facility] Lala Tate on 04-05-2025 Phencyclidine Ql (U) Negative < 25 ng/mL [facility] White blood cell (WBC) count Ordered [facility]: [facility] on 04-05-2025 WBC (Bld) [#/Vol] 7.3 10*3/uL 4.4-11.0 [facility] Office Visit Reporton 2024 Office Visit Report [facility] [address] [place] [address] OFFICE VISIT Date of Service: 11/02/24 MR#: [id number] Acct: [id number] Patient: KATIE PULLIAM Rep #: [id number] : 1995 Provider: MERT Reyes Age/Sex: 30/F Location[place] [facility] Status: Signed Intake Vital Signs 07/11/24 15:57 Height 5 ft 2 in 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/ [facility] Chief Complaint: 6Month FU Allergies adhesive [...] Feliciano London Signature: Date (if applicable) CC: [facility] 03-27-2025 [facility] Telephone (OBGYWM) KATIE PULLIAM ([id number]) 1995 F Date Time Provider Department 03/27/25 [...] Diagnosis:Female infertility [N97.9] Order(s):CONSULT TO INFERTILITY CLINIC [3136348] Order #: [id number]: 1 FUTURE Prescriptions as of 03/27/2025 - [...] Status:Closed by SCOTTIE CHANCE on 03/27/25 Normal [facility] Pathology biopsy report Michael (Tiss)Ordered By: Jannette Shepard on 03-16-2025 Case Report Surgical Pathology R eport Case: [id number] Authorizing Provider: Scottie Chance MD Collected: 03/15/2025 11:21 AM Ordering Location: OB/Gynecology Received: 03/15/2025 12:08 PM Pathologist: Jannette Shepard MD Specimens: A) - Endocervix, Curettings B) - Cervix, Biopsy, 2 o'clock [facility] Work Phone: Clinical History c0lnqWNuBHDwt1ptSMRy bGFuZzE zOeTbUjOlPri5THYwgdS4Sea6TV KrMLefqB9zSDUzGUjcU5udjfLro XOhJRFyGYe1fG2snPdkuE4fAeZr DsSzMGJFNIBcb55jGPVjv0DaR2Q mqaw2KNsmeTzcYVARDRIcMGTuci 9vdJHniTDapQGuVNhFX2iPDGJwq iB9 [facility] Work Phone: Disclaimer h3tovPGaOGLfc2fnAUBg bGFuZzE wMzNcZnRuYmpcdWMxIHtccnRmMV tppVbwBGYnBKAnz7dhy2fkcSGgV RKce6aux6RyoOOsvUQfUKmjuNBw xrKfij32xBB6oE21NB5wORKgJpM 7BPIzmjF3Zik7UJDpFBGvaHAnF4 73z1nrv4trzaOgkKC8VWFiVZLzR 9MyCR1xSVFbzGSnY37feXItNJD7 RULzGAKurDTsZSStAGU4GRHdpKE bA1alBWPrNL8loquzFXxaKZyqDC XnbHS2IPJnnTSwI4TxBJOpZNruP VMffec7AeNyWj3lbGUsaYguFGpx R5bzaK7tThY8BPigH8fctK9iZDl 2NBlaCCMjhCA7crN3KBYbpFCcL5 TlpQ3zGATlTO7wpww4z4caDFG5V GnvSIFrKyX7mlN0MZZhnDRtWRww bEStssljDHPpKSAaW5SbBEabXq9 uLSNjycueGPY5FVyloINwDSTxx8 LsTLlSHEjgLUmsW6czhM6ixjpvz FRqBVFsVCSxAXWDUDMgf2OdOI5r FBGxuJYnVWG0VPJkd9AcV0Htw8R hzY7nwV9rbFknlD2fcTRpoFTccZ iswK9gwA0eZod3i7Aln5CrlvJbL CGaYGIzpCSdgT1oQQ5cGxLbtk2k nNK7ESq7AdHnVJm6FOAds81eqMO lnEFwnQM4ISJvYDGcWPEclZNjsK lvKDZpPsishKthRHVbpsLqkl6zy wywpPSmh8TjvZ7zfTT3eWHuxB6v Z2oqafJhCE3cWTAfbM8kZcvlYUS qLgWfyPASLdDOf72gsEUrDKQduQ rudB8olEOoxdUnEHLit3MgrN4fy JUCHHVmA5ibOYEFJDTnoxMzEX03 LXdRHWugWMRoqNN7psVDr4QurBL avAtqBNbiu37hC0JwVNKdkNNJu5 NpwKMfbXsfYkshfbsaCBZPNEO1b 93eEY9syLg0VIdeID9phrP4KSgt k0ShqESqEANTnvFiZG1mZkr2OCW oBCDvmZAfaLBJQK57HKMqXS2xnp RfhdNWXHSgrNdvVr9xxCrkJY2ui Lr7TTyaEB2hSFNllK5eXUpun6Kz cGAwENIlusOwPM8ffx7kawNzx20 kyPT4QU92JKeuhWacK8bAPTUdST B3eCAwoBLxwBUqIB0tWEAyhsSua 9TlPO2pKIWmAPBmMUUaf8FiBW7p vJWci2SzeBO4HCVdUNJsSZQbMIN wZMDer8TkRDXizg39EAZvKyiwnU pbOGYTQQ1sMhTfKJjIMPkoSMDpQ 2MoDVZpRWY8pvPrmzREPTrHJJCc BXA6WHalXuafMZL9puVhDLDft8X bNFwcS4ijW68mqOzwhGe0wHJ6NR V7zO7ePbFGpQAwNKD9MJC8hvDyg fEudVLgTRSbg8GdJ9vhlcbvSSxr rOLiaZ8oLWBbBKSpUDKeUSDua1R fJUGnl5LvNiMlirAxTBGzRCTnCX OvoQ81PVL2vZmgsUhbwxGzQX6rG NNwtoVyKEVpMDMccJ3sVS4umBTq xbSsQF5rKP6gN4B7mIRtVBCenyD gm8uxWFO1CTpnJFFiwYXbeBBdHJ IodZsnUYGjhu16 [facility] Work Phone: FINAL DIAGNOSIS u6ixhHQuEUYyvAGkRXBd NlxhbnN xBUAhrNUxH4UjfmnnORxnQO4hXR 3dfDdwgHLttBWlCTOzPgAut1ele 731jKYgq6wtBTUCrizqjAh6bDsg O83jj2D1KnblY27nkETrXZE3KTT vUPFovBTsBUXbWCU0MUBcjPCgC1 ebVABhMV4lqzmqAOicFBlbRYBbj SF3LVBreSWvS3EhGBXnBInuFFPn zqi0ZdHtWf1ipKRohVxiZCveOWR cOCXqCAngEZIqBnWyAL9cOSOcQV 3oLOM4gQumEZY3jtT8jAwcH4Y2S NJzezRgCOFnwrdvrcDnosNkW9Po krviROvzR6kyppWoJRCvupilJMM cXm6sMJHyuxMfkMqcZvzhSNusQh xbgQE1AdujWQMqRDVELG6tH04rx 8J1DG5ejALkaHUjp3OcBSchvBce wR3qgFBoyZZ2mA4jQIGzOHNpZFY knHk9TSMhcLPeK0EtMZNehqDzNG I2IJHbFHRkEZ4fn3HqzmQgC9KkV GNlbGxzXHBhcn0= [facility] Work Phone: Gross Description z3omwUSyNRXwvWIPNOPr MDNcYW5 zmOjtnAs0oHloGBFaxjI0oHEeNV gnq2kbCBS3m5mtygTJVkyoLMMkU C5cYOfkPEMfDW6dGxAtRZUwVeLg XHBhcGVydzEyMjQwXHBhcGVyaDE 8PUInUA0sbvqcXInvHIyhBJXriq L5CFZxzHAkD1XvIWNnYM8ehpyjT RB9VNTNPorzYk2btUHzgIluDxAs GfEaMQLwLRFrRZCil4usizMKhnt zpCp2gX4BXWQbL1LhIA3Nm0nlRV XsrIZgOYK9FAuws2jyQKiuCRI3A WRbYLYdERMkQK7VKfPwCMe2ZLD0 HNUtMvO2NEd9SNVSLLMkAWU3Zzm 3RZAqKPo6ZVkdLOnkbVBfLQVtPR EcUKZwHYrbmaK3n8mdSZMrmZImT ME0RQfbq4wxWDfoWWR9MZCsCnDu MTEqPJ0GZhCdDNp1CNP9NPZfIaX 3WRc6VAGUIcWmYqZyWlC0NBC0El PmCKp9WKp5FFgFXsMxDQx6KsKmG jB9MjJ1BBO6AIHePLIxViItXXEu JYQhMGvqqIPwSO2qqTjdVAPuLK9 NKIBpFNlwFDXsArUuUV2pQK2hb7 XsrbWurGvnO6XlTAJ5yZ2dp5onx HJjaFxmczIyXHBhciANClxwYXJk AJ1XXZTpZZqjOWp1roXlOLXdHrA wBJYuF63fs9ISl0ScLZ2MHPz3lu KhqljqRLRsMPKoqAEGa3YkLEDWD iqvccBvTXKgP3TbkjZlWKizTKKg ko3lsDaqMLHdZBUvmEw5sSHaAMX 1IX5oayTyYNGhj6B9RHOcFBZzFM U1JRVtU13ijfIoAW1sCTNdr5O9N YNrAZ9grTNdPOvqdVrvaYMlqD8j wFWzjPR3TTZoNVlfCZhivzHmCID jykuvyX3bRO27XTbqIA83QVmlGN 1aSLHbLxLBn0MquSe3ALO0Dr1kw NPrBKXczqJmwmOeT4Qez1N2zIYr WDjvVAXoU22kw5MGt2Qkt1yjyLe fw4YltBThAO3iaFZbSR5Wx3kaIM RaoRIlMHF2IXudk1ljICgfUPZ4T ZLvBmWpOWOaKK2AQbBbILq3TYN3 NWUsAwR3RBw8PPKXYjOoPrZoUcU 0BTY0UkBgSCb7LTn0DUjRYqGyIU h5WwTbPcw7KHI8DTF2QVSsYWDzP yDcRIJyQZCsJXcttCVlRU9yjLax OVIvMHNqDFQ8KMKgpMZNi1PdGLR jBLpBOlYETMF7oYpnSJQqr4JvxI odfcUfORChjoLVAivaWQXiAL0RT HIfIPkoKZl1jcTvPFXsThJlYEUc I87ln2UZe5BgPM2KKEd3ecSvtik tFtFgFNGxiJEIz7GfCEZRExpwfl RhDCYiA7FmlsBxRMahRGXeuy8gw GiqYCyiYJ9kCFRtjTFtBPXrMgB6 CP5qtWarartvo15ooBBefEPmi7B hKWEqrdVaZUOceIohi9CqES2rOZ Z0qdtzLpFaVvUstJXgPaCfzBFzM lIxX89jMXOvvBEhvJpyw8MokZj4 mQJxFZbgPH8pUMAlKDXbOEU1VZ8 uXSMmqzLFXuduNCYaTZu2vgPwna VUXfykGONlGRvQCQveHHK8DDNoF GKtNSN7BMU9RKHpUV2plTLzLQ3U CHPriyPMIobfTQFcJOArfYBNu7I qXDVISwvgm6DkUEE7GL9jgbM4hH 4mJHHspePdnw9mCXNexNHAcVR6U NmrytWtS7enbycgMAU1DEOsNWV3 R8peDBZValHdUBCLyEQ8HCtrcwI hLO2LNTV6SJo9WQtoSEVcV91wr0 DRg3Ond1fyoVtem5UiwDUnNP71Y XGexMMoTQN0AV8vaWkrRNSzUGuy cGFyZCANClxwbGFpbiANCn0= [facility] Work Phone: Performing Lab v2qntPLnGSNjyWWuPNRw MlxhbnN gNFGhsXIgS0QqtcscCTvwFW8kXC 6uxVpjgDDzfCNxQVIhKuNlv1rga 786zWBsf9ixSRFMvxcyiIk8gArs U75gm0H7OnrwF10riQYaYXF3MVQ iQPPttCZxQILzTSK6ROZzdCEjN7 miWGQoTS2lvtsvYEfuCAnwCEXak NY0LVLkrNVbN6HtPGIoHUriTXRv pyo2VyPsMh3glZZolWouUWfxO7y ypT6sHbY5SRitI9gmqE3vLXo8LX giASOzkMX4wgS6KNZwhFUnV1Ivb P8jORQvQZ6gqfg6e0xeBEF8MCck GNNgGdN8msB6SDRuvGBmFByjjNN ekgxdxlZmECEoERqwa5M6cELasR 26RWEfwcM8YJKwb85khTNuFn3sv RUyDXG8FaQMrET7QIuevmRuM8dh mktnAX9nyH9hC4CmdRVqLJxtn9D omWDyUWsgIw5fDZEnfnnhTJx3NY ZmWOMkhRliPIP8QX56YLswAVEhp yBMMjEsIENsZXZlbGFuZCBPSCA0 IPN8MUKuYRMBZWMtDZZ0KHS1EXN yBPRywIOyEKeqZYGeYYVdt2YmtK 9xpYEBwTUaX5UzwvbxS5AkyXMuE SyzjaUdL0ukRPODVQqjNSX5 [facility] Work Phone: [facility] Work Phone: CNOVon 03-15-2025 [facility] Office Visit (OBGYWM ) KATIE PULLIAM ([id number]) 1995 F Date Time Provider Department 03/15/25 [...] / SAFETY CHECKLIST Procedure to be Performed: [place] bx and ECC Sign In: A Moment [...] report Michael (Tiss)on 03-15-2025 AP DISCLAIMER Normal [facility] Comment on above: Order Comment: Speci men Type: TISSUE SPECIMEN Ordering Facility: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 100.0100, L500.2500 ####[facility] [address] [place], [address] Chloride [Moles/Vol] 106 mmol/L Normal 98-[address] [facility] Comment on above: Order Comment: ADD T O GOLD TOP DRAWN BLOOD IN LAB. RECEIVED SPECIMEN Performed By: #### L 100.0100, L500.2500 ####[facility] [address] [place], [address] CO2 [Moles/Vol] 28.0 mmol/L Normal 21.0-32.0 [facility] Comment on above: Order Comment: ADD T O GOLD TOP DRAWN BLOOD IN LAB. RECEIVED SPECIMEN Performed By: #### L 100.0100, L500.2500 ####[facility] [address] [place], [address] Creatinine [Mass/Vol] 0.65 mg/dL Normal 0.55-1.02 [facility] Comment on above: Order Comment: ADD T O GOLD TOP DRAWN BLOOD IN LAB. RECEIVED SPECIMEN Result Comment: The validity of the calculated GFR GFRAA in patients over 70 years has not been determined. Clinical correlation is essential. Performed By: #### L 100.0100, L500.2500 ####[facility] [address] [place], [address] EST GFR - AA 138 mL/min Normal >60 [facility] Comment on above: Order Comment: ADD T O GOLD TOP DRAWN BLOOD IN LAB. RECEIVED SPECIMEN Result Comment: Afri can Austrian GFR Calc Performed By: #### L 100.0100, L500.2500 ####[facility] [address] [place], [address] GAP 6 Normal 5-15 [facility] Comment on above: Order Comment: ADD T O GOLD TOP DRAWN BLOOD IN LAB. RECEIVED SPECIMEN Performed By: #### L 100.0100, L500.2500 ####[facility] [address] [place], [address] GFR/1.73 sq M.predicted among non-blacks MDRD (S/P/Bld) [Vol rate/Area] 114 mL/min/{1.73_m2} Normal >60 [facility] Comment on above: Order Comment: ADD T O GOLD TOP DRAWN BLOOD IN LAB. RECEIVED SPECIMEN Result Comment: Non- GFR Calc Performed By: #### L 100.0100, L500.2500 ####[facility] [address] [place], [address] Glucose [Mass/Vol] 118 mg/dL High 74-106 [facility] Comment on above: Order Comment: ADD T O GOLD TOP DRAWN BLOOD IN LAB. RECEIVED SPECIMEN Result Comment: Fast ing Glucose result from 100 to 125 mg/dL suggests IMPAIRED HOMEOSTASIS per A.D.A. criteria. Performed By: #### L 100.0100, L500.2500 ####[facility] [address] [place], [address] Potassium [Moles/Vol] 3.7 mmol/L Normal 3.5-5.1 [facility] Comment on above: Order Comment: ADD T O GOLD TOP DRAWN BLOOD IN LAB. RECEIVED SPECIMEN Performed By: #### L 100.0100, L500.2500 ####[facility] [address] [place], [address] Sodium [Moles/Vol] 140 mmol/L Normal 136-145 [facility] Comment on above: Order Comment: ADD T O GOLD TOP DRAWN BLOOD IN LAB. RECEIVED SPECIMEN Performed By: #### L 100.0100, L500.2500 ####[facility] [address] [place], [address] Urea nitrogen [Mass/Vol] 12 mg/dL Normal 7-18 [facility] Comment on above: Order Comment: ADD T O GOLD TOP DRAWN BLOOD IN LAB. RECEIVED SPECIMEN Performed By: #### L 100.0100, L500.2500 ####[facility] [address] [place], [address] CBC W/Diff, Automatedon 10-0 3-2024 Absolute Lymph 2.18 X10 3/uL Normal 0.83-4.51 [facility] Comment on above: Performed By: #### L 100.0100, L500.2500 ####[facility] [address] [place], [address] Absolute Neut 5.4 X10 3/uL Normal 2.0-7.7 [facility] Comment on above: Performed By: #### L 100.0100, L500.2500 ####[facility] [address] [place], [address] Basophils/100 WBC (Bld) 0.4 % Normal 0-1 [facility] Comment on above: Performed By: #### L 100.0100, L500.2500 ####[facility] [address] [place], [address] Eosinophils/100 WBC (Bld) 0.9 % Normal 0-5 [facility] Comment on above: Performed By: #### L 100.0100, L500.2500 ####[facility] [address] [place], [address] Erythrocyte distribution width (RBC) [Ratio] 13.6 % Normal 11.6-14.6 [facility] Comment on above: Performed By: #### L 100.0100, L500.2500 ####[facility] [address] [place], [address] Hematocrit (Bld) [Volume fraction] 40.1 % Normal 37-47 [facility] Comment on above: Performed By: #### L 100.0100, L500.2500 ####[facility] [address] [place], [address] Hemoglobin (Bld) [Mass/Vol] 13.3 g/dL Normal 12.0-15.0 [facility] Comment on above: Performed By: #### L 100.0100, L500.2500 ####[facility] [address] [place], [address] IG% 0.400 Normal 0.0-0.9 [facility] Comment on above: Result Comment: IG% - Immature Granulocytes (promyelocytes, myelocytes and metamyelocytes) > 1% indicates that a LEFT SHIFT is Present. Performed By: #### L 100.0100, L500.2500 ####[facility] [address] [place], [address] Lymphocytes/100 WBC (Bld) 26.8 % Normal 19-41 [facility] Comment on above: Performed By: #### L 100.0100, L500.2500 ####[facility] [address] [place], [address] MCH (RBC) [Entitic mass] 28.5 pg Normal 27.0-32.0 [facility] Comment on above: Performed By: #### L 100.0100, L500.2500 ####[facility] [address] [place], [address] MCHC (RBC) [Mass/Vol] 33.2 g/dL Normal 32-36 [facility] Comment on above: Performed By: #### L 100.0100, L500.2500 ####[facility] [address] [place], [address] MCV (RBC) [Entitic vol] 85.9 fL Normal 81-99 [facility] Comment on above: Performed By: #### L 100.0100, L500.2500 ####[facility] [address] [place], [address] Monocytes/100 WBC (Bld) 5.3 % Normal 0-10 [facility] Comment on above: Performed By: #### L 100.0100, L500.2500 ####[facility] [address] [place], [address] Neutrophils/100 WBC (Bld) 66.2 % Normal 47-70 [facility] Comment on above: Performed By: #### L 100.0100, L500.2500 ####[facility] [address] [place], [address] Nucleated RBC (Bld) [#/Vol] 0 10*3/uL Normal 0-5 [facility] Comment on above: Performed By: #### L 100.0100, L500.2500 ####[facility] [address] [place], [address] Platelet mean volume (Bld) [Entitic vol] 10.4 fL Normal 6.2-12.0 [facility] Comment on above: Performed By: #### L 100.0100, L500.2500 ####[facility] [address] [place], [address] Platelets (Bld) [#/Vol] 296 10*3/uL Normal 150-450 [facility] Comment on above: Performed By: #### L 100.0100, L500.2500 ####[facility] [address] [place], [address] RBC (Bld) [#/Vol] 4.67 10*6/uL Normal 4.2-5.4 [facility] Comment on above: Performed By: #### L 100.0100, L500.2500 ####[facility] [address] [place], [address] RDW SD 42.2 fl Normal 35.1-43.9 [facility] Comment on above: Performed By: #### L 100.0100, L500.2500 ####[facility] [address] [place], [address] WBC (Bld) [#/Vol] 8.1 10*3/uL Normal 4.4-11.0 [facility] Comment on above: Performed By: #### L 100.0100, L500.2500 ####[facility] [address] [place], [address] CBC W/Diff, Automatedon -11 29-2023 Absolute Lymph 4.34 X10 3/uL Normal 0.83-4.51 [facility] Comment on above: Performed By: #### L 500.4050, L100.0100 #### [facility] [address] [place], [address] Absolute Neut 8.9 X10 3/uL High 2.0-7.7 [facility] Comment on above: Performed By: #### L 500.4050, L100.0100 #### [facility] [address] [place], [address] Basophils/100 WBC (Bld) 0.5 % Normal 0-1 [facility] Comment on above: Performed By: #### L 500.4050, L100.0100 #### [facility] [address] [place], [address] Eosinophils/100 WBC (Bld) 1.2 % Normal 0-5 [facility] Comment on above: Performed By: #### L 500.4050, L100.0100 #### [facility] [address] [place], [address] Erythrocyte distribution width (RBC) [Ratio] 13.4 % Normal 11.6-14.6 [facility] Comment on above: Performed By: #### L 500.4050, L100.0100 #### [facility] [address] [place], [address] Hematocrit (Bld) [Volume fraction] 45.0 % Normal 37-47 [facility] Comment on above: Performed By: #### L 500.4050, L100.0100 #### [facility] [address] [place], [address] Hemoglobin (Bld) [Mass/Vol] 14.5 g/dL Normal 12.0-15.0 [facility] Comment on above: Performed By: #### L 500.4050, L100.0100 #### [facility] [address] [place], [address] IG% 1.800 High 0.0-0.9 [facility] Comment on above: Result Comment: IG% - Immature Granulocytes (promyelocytes, myelocytes and metamyelocytes) > 1% indicates that a LEFT SHIFT is Present. Performed By: #### L 500.4050, L100.0100 #### [facility] [address] [place], [address] Lymphocytes/100 WBC (Bld) 29.8 % Normal 19-41 [facility] Comment on above: Performed By: #### L 500.4050, L100.0100 #### [facility] [address] [place], [address] MCH (RBC) [Entitic mass] 27.8 pg Normal 27.0-32.0 [facility] Comment on above: Performed By: #### L 500.4050, L100.0100 #### [facility] [address] [place], [address] MCHC (RBC) [Mass/Vol] 32.2 g/dL Normal 32-36 [facility] Comment on above: Performed By: #### L 500.4050, L100.0100 #### [facility] [address] [place], [address] MCV (RBC) [Entitic vol] 86.4 fL Normal 81-99 [facility] Comment on above: Performed By: #### L 500.4050, L100.0100 #### [facility] [address] [place], [address] Monocytes/100 WBC (Bld) 5.6 % Normal 0-10 [facility] Comment on above: Performed By: #### L 500.4050, L100.0100 #### [facility] [address] [place], [address] Neutrophils/100 WBC (Bld) 61.1 % Normal 47-70 [facility] Comment on above: Performed By: #### L 500.4050, L100.0100 #### [facility] [address] [place], [address] Nucleated RBC (Bld) [#/Vol] 0 10*3/uL Normal 0-5 [facility] Comment on above: Performed By: #### L 500.4050, L100.0100 #### [facility] [address] [place], [address] Platelet mean volume (Bld) [Entitic vol] 10.5 fL Normal 6.2-12.0 [facility] Comment on above: Performed By: #### L 500.4050, L100.0100 #### [facility] [address] [place], [address] Platelets (Bld) [#/Vol] 399 10*3/uL Normal 150-450 [facility] Comment on above: Performed By: #### L 500.4050, L100.0100 #### [facility] [address] [place], [address] RBC (Bld) [#/Vol] 5.21 10*6/uL Normal 4.2-5.4 [facility] Comment on above: Performed By: #### L 500.4050, L100.0100 #### [facility] [address] [place], [address] RDW SD 41.4 fl Normal 35.1-43.9 [facility] Comment on above: Performed By: #### L 500.4050, L100.0100 #### [facility] [address] [place], [address] WBC (Bld) [#/Vol] 14.6 10*3/uL High 4.4-11.0 [facility] Comment on above: Performed By: #### L 500.4050, L100.0100 #### [facility] [address] [place], [address] Comprehensive Metabolic Prof [facility] 07-19-2024 Albumin [Mass/Vol] 3.4 g/dL Normal 3.2-5.0 [facility] Comment on above: Performed By: #### L 500.4050, L100.0100 ####[facility] [address] [place], [address] Albumin/Globulin [Mass ratio] 0.8 {ratio} Low 0.9-2.4 [facility] Comment on above: Performed By: #### L 500.4050, L100.0100 ####[facility] [address] [place], [address] ALK P 73 U/L Normal 45-117 [facility] Comment on above: Performed By: #### L 500.4050, L100.0100 ####[facility] [address] [place], [address] ALT [Catalytic activity/Vol] 39 U/L Normal 13-56 [facility] Comment on above: Performed By: #### L 500.4050, L100.0100 ####[facility] [address] [place], [address] AST [Catalytic activity/Vol] 17 U/L Normal 15-37 [facility] Comment on above: Performed By: #### L 500.4050, L100.0100 ####[facility] [address] [place], [address] Bilirubin [Mass/Vol] 0.40 mg/dL Normal 0.20-1.[address] [facility] Comment on above: Result Comment: For patients on eltrombopag therapy, use of Dimension [place] TBIL is not recommended. Performed By: #### L 500.4050, L100.0100 ####[facility] [address] [place], [address] BUN/CRE 26.2 RATIO High 10-20 [facility] Comment on above: Performed By: #### L 500.4050, L100.0100 ####[facility] [address] [place], [address] CA,Total 9.1 mg/dL Normal 8.5-10.1 [facility] Comment on above: Performed By: #### L 500.4050, L100.0100 ####[facility] [address] [place], [address] Chloride [Moles/Vol] 99 mmol/L Normal 98-[address] [facility] Comment on above: Performed By: #### L 500.4050, L100.0100 ####[facility] [address] [place], [address] CO2 [Moles/Vol] 27.0 mmol/L Normal 21.0-32.0 [facility] Comment on above: Performed By: #### L 500.4050, L100.0100 ####[facility] [address] [place], [address] Creatinine [Mass/Vol] 0.61 mg/dL Normal 0.55-1.02 [facility] Comment on above: Result Comment: The validity of the calculated GFR GFRAA in patients over 70 years has not been determined. Clinical correlation is essential. Performed By: #### L 500.4050, L100.0100 ####[facility] [address] [place], [address] EST GFR - AA 150 mL/min Normal >60 [facility] Comment on above: Result Comment: Afri can Austrian GFR Calc Performed By: #### L 500.4050, L100.0100 ####[facility] [address] [place], [address] GAP 7 Normal 5-15 [facility] Comment on above: Performed By: #### L 500.4050, L100.0100 ####[facility] [address] [place], [address] GFR/1.73 sq M.predicted among non-blacks MDRD (S/P/Bld) [Vol rate/Area] 124 mL/min/{1.73_m2} Normal >60 [facility] Comment on above: Result Comment: Non- GFR Calc Performed By: #### L 500.4050, L100.0100 ####[facility] [address] [place], [address] Globulin (S) [Mass/Vol] 4.1 g/dL Normal 2.2-4.2 [facility] Comment on above: Performed By: #### L 500.4050, L100.0100 ####[facility] [address] [place], [address] Glucose [Mass/Vol] 103 mg/dL Normal 74-106 [facility] Comment on above: Result Comment: Fast ing Glucose result from 100 to 125 mg/dL suggests IMPAIRED HOMEOSTASIS per A.D.A. criteria. Performed By: #### L 500.4050, L100.0100 ####[facility] [address] [place], [address] Potassium [Moles/Vol] 4.2 mmol/L Normal 3.5-5.1 [facility] Comment on above: Performed By: #### L 500.4050, L100.0100 ####[facility] [address] [place], [address] Sodium [Moles/Vol] 133 mmol/L Low 136-145 [facility] Comment on above: Performed By: #### L 500.4050, L100.0100 ####[facility] [address] [place], [address] T PROT 7.5 g/dL Normal 6.4-8.2 [facility] Comment on above: Performed By: #### L 500.4050, L100.0100 ####[facility] [address] [place], [address] Urea nitrogen [Mass/Vol] 16 mg/dL Normal 7-18 [facility] Comment on above: Performed By: #### L 500.4050, L100.0100 ####[facility] [address] [place], [address] Basophil percentageOrdered B y: Cintia Mcgee on 02-03-2024 Chloride [Moles/Vol] 108 mmol/L 98-[address] [facility] Glucose [Mass/Vol] 106 mg/dL 74-106 [facility] Comment on above: Fasting Glucose resu lt from 100 to 125 mg/dL suggests IMPAIRED HOMEOSTASIS per A.D.A. criteria. Potassium [Moles/Vol] 3.5 mmol/L 3.5-5.1 [facility] Sodium [Moles/Vol] 140 mmol/L 136-145 [facility] - Chemistry and C hemistry - challengeOrdered By: Cintia Mcgee on 02-03-2024 CO2 [Moles/Vol] 28.0 mmol/L 21.0-32.0 [facility] Urea nitrogen/Creatinine [Mass ratio] 17.7 mg/mg 10-20 [facility] No Panel InformationOrdered By: Cintia Mcgee on 02-03-2024 Estimated GFR (MDRD) Amer 121 mL/min >60 [facility] Comment on above: GFR Calc Estimated GFR (MDRD) Non-Af Amer 100 mL/min >60 [facility] Comment on above: Non- GFR Calc Serum or plasma calcium raad urement (mass/volume)Ordered By: Cintia Mcgee on 02-03-2024 Calcium [Mass/Vol] 8.8 mg/dL 8.5-10.1 [facility] Serum or plasma creatinine m easurement (mass/volume)Ordered By: Cintia Mcgee on 02-03-2024 Creatinine [Mass/Vol] 0.74 mg/dL 0.55-1.02 [facility] Comment on above: The validity of the calculated GFR & GFRAA in patients over 70 years has not been determined. Clinical correlation is essential. Serum or plasma urea nitroge n measurement (mass/volume)Ordered By: Cintia Mcgee on 02-03-2024 Urea nitrogen [Mass/Vol] 13 mg/dL 7-18 [facility] Thin prep Papanicolaou smear with manual screeningOrdered By: Cintia Mcgee on 02-03-2024 Thin prep Papanicolaou smear with manual screening 4 5-15 [facility] - Chemistry and C hemistry - challengeOrdered By: Cintia Mcgee on 09-10-2023 Free T4 [Mass/Vol] 1.00 ng/dL 0.76-1.46 [facility] No Panel InformationOrdered By: Cintia Mcgee on 09-10-2023 Thyroid Stimulating Hormone (TSH) 1.51 uIU/mL 0.358-3.74 [facility] Serum or plasma ferritin thierno surement (mass/volume)Ordered By: Cintia Mcgee on 09-10-2023 Ferritin [Mass/Vol] 64 ng/mL 8 [facility] Absolute lymphocyte countOrd ered By: HEALTH ASSESSMENT on 06-18-2023 Lymphocytes Auto (Unsp spec) [#/Vol] 2.68 10*3/uL 0.83-4.51 [facility] Absolute reticulocyte countO rdered By: HEALTH ASSESSMENT on 06-18-2023 Reticulocytes (Bld) [#/Vol] 0.00 10*3/uL 0-5 [facility] Basophil percentageOrdered B y: HEALTH ASSESSMENT on 06-18-2023 Basophil percentage 3.9 mg/dL 2.5-4.9 [facility] Bilirubin [Mass/Vol] 0.20 mg/dL 0.20-1.[address] [facility] Comment on above: For patients on eltr ombopag therapy, use of Dimension [place] TBIL is not recommended. Chloride [Moles/Vol] 111 mmol/L 98-[address] [facility] Cholesterol [Mass/Vol] 133 mg/dL <200 [facility] Comment on above: <200 mg/dL Desirable 200-240 mg/dL Borderline >240 mg/dL High Risk Glucose [Mass/Vol] 119 mg/dL 74-106 [facility] Comment on above: Fasting Glucose resu lt from 100 to 125 mg/dL suggests IMPAIRED HOMEOSTASIS per A.D.A. criteria. LDH [Catalytic activity/Vol] 159 U/L 84-246 [facility] Neutrophils (Bld) [#/Vol] 3.1 10*3/uL 2.0-7.7 [facility] Potassium [Moles/Vol] 3.8 mmol/L 3.5-5.1 [facility] Protein [Mass/Vol] 6.8 g/dL 6.4-8.2 [facility] Sodium [Moles/Vol] 142 mmol/L 136-145 [facility] Triglyceride [Mass/Vol] 115 mg/dL <199 [facility] Comment on above: The drugs N-Acetylcy steine and Metamizole may falsely depress this assay.Serum Triglycerides Reference Interval Normal <150 mg/dL Borderline high 150 - 199 mg/dL High 200 - 499 mg/dL Very High > or = 500 mg/dL WBC (Bld) [#/Vol] 6.4 10*3/uL 4.4-11.0 [facility] Bilirubin Test strip Ql (U)O rdered By: HEALTH ASSESSMENT on 06-18-2023 Bilirubin Ql (U) Negative Negative [facility] Blood erythrocytes count (nu mber/volume)Ordered By: HEALTH ASSESSMENT on 06-18-2023 RBC (Bld) [#/Vol] 4.59 10*6/uL 4.2-5.4 [facility] Blood hemoglobin measurement (mass/volume)Ordered By: HEALTH ASSESSMENT on 06-18-2023 Hemoglobin (Bld) [Mass/Vol] 12.9 g/dL 12.0-15.0 [facility] Blood platelet mean volumeOr dered By: HEALTH ASSESSMENT on 06-18-2023 Platelet mean volume (Bld) [Entitic vol] 10.6 fL 6.2-12.0 [facility] Determination of erythrocyte mean corpuscular volume (MCV)Ordered By: HEALTH ASSESSMENT on 06-18-2023 MCV (RBC) [Entitic vol] 87.6 fL 81-99 [facility] Direct bilirubinOrdered By: HEALTH ASSESSMENT on 06-18-2023 Bilirubin.direct [Mass/Vol] 0.09 mg/dL 0.00-0.30 [facility] Hematocrit Auto (Bld) [Volum e fraction]Ordered By: HEALTH ASSESSMENT on 06-18-2023 Hematocrit (Bld) [Volume fraction] 40.2 % 37-47 [facility] Ketones Test strip Ql (U)Ord ered By: HEALTH ASSESSMENT on 06-18-2023 Ketones Ql (U) Negative Negative [facility] - Chemistry and C hemistry - challengeOrdered By: HEALTH ASSESSMENT on 06-18-2023 ALP [Catalytic activity/Vol] 66 U/L 45-117 [facility] ALT [Catalytic activity/Vol] 21 U/L 13-56 [facility] Cholesterol.total/Dotty sterol in HDL [Mass ratio] 2.40 {ratio} [facility] CO2 [Moles/Vol] 25.0 mmol/L 21.0-32.0 [facility] Globulin (S) [Mass/Vol] 3.8 g/dL 2.2-4.2 [facility] Urea nitrogen/Creatinine [Mass ratio] 15.8 mg/mg 10-20 [facility] - Hematology and Cell countsOrdered By: HEALTH ASSESSMENT on 06-18-2023 Erythrocyte distribution width (RBC) [Entitic vol] 42.5 fL 35.1-43.9 [facility] Erythrocyte distribution width (RBC) [Ratio] 13.3 % 11.6-14.6 [facility] MCH (RBC) [Entitic mass] 28.1 pg 27.0-32.0 [facility] Nucleated RBC/100 WBC (Bld) [Ratio] 0 % 0-5 [facility] MCHC Auto (RBC) [Mass/Vol]Or dered By: HEALTH ASSESSMENT on 06-18-2023 MCHC (RBC) [Mass/Vol] 32.1 g/dL 32-36 [facility] Nitrite Test strip Ql (U)Ord ered By: HEALTH ASSESSMENT on 06-18-2023 Nitrite Ql (U) Negative Negative [facility] No Panel InformationOrdered By: HEALTH ASSESSMENT on 06-18-2023 Estimated GFR (MDRD) Amer 130 mL/min >60 [facility] Comment on above: GFR Calc Estimated GFR (MDRD) Non-Af Amer 107 mL/min >60 [facility] Comment on above: Non- GFR Calc Platelets bldOrdered By: ALEX LT ASSESSMENT on 06-18-2023 Platelets (Bld) [#/Vol] 314 10*3/uL 150-450 [facility] Protein Test strip Ql (U)Ord ered By: HEALTH ASSESSMENT on 06-18-2023 Protein Ql (U) Negative Negative [facility] Segmented neutrophils/100 WB C Auto (Bld)Ordered By: HEALTH ASSESSMENT on 06-18-2023 Segmented neutrophils/100 WBC (Bld) 48.3 % 47-70 [facility] Serum or plasma albumin raad urement (mass/volume)Ordered By: HEALTH ASSESSMENT on 06-18-2023 Albumin [Mass/Vol] 3.0 g/dL 3.2-5.0 [facility] Serum or plasma albumin/glob ulin mass ratioOrdered By: HEALTH ASSESSMENT on 06-18-2023 Albumin/Globulin [Mass ratio] 0.8 {ratio} 0.9-2.4 [facility] Serum or plasma calcium raad urement (mass/volume)Ordered By: HEALTH ASSESSMENT on 06-18-2023 Calcium [Mass/Vol] 8.6 mg/dL 8.5-10.1 [facility] Serum or plasma cholesterol in HDL measurement (mass/volume)Ordered By: HEALTH ASSESSMENT on 06-18-2023 Cholesterol in HDL [Mass/Vol] 56 mg/dL >40 [facility] Comment on above: The drugs N-Acetylcy steine and Metamizole may falsely depress this assay. Reference Range HDL <40 mg/dL Low HDL Cholesterol HDL >or= 60 mg/dL High HDL Cholesterol Serum or plasma cholesterol in VLDL measurement (mass/volume)Ordered By: HEALTH ASSESSMENT on 06-18-2023 Cholesterol in VLDL [Mass/Vol] 23 mg/dL 5-40 [facility] Serum or plasma creatinine m easurement (mass/volume)Ordered By: HEALTH ASSESSMENT on 06-18-2023 Creatinine [Mass/Vol] 0.70 mg/dL 0.55-1.02 [facility] Comment on above: The validity of the calculated GFR & GFRAA in patients over 70 years has not been determined. Clinical correlation is essential. Serum or plasma low density lipoprotein (LDL) cholesterol measurement (mass/volume)Ordered By: HEALTH ASSESSMENT on 06-18-2023 Cholesterol in LDL [Mass/Vol] 54 mg/dL 0-130 [facility] Serum or plasma urea nitroge n measurement (mass/volume)Ordered By: HEALTH ASSESSMENT on 06-18-2023 Urea nitrogen [Mass/Vol] 11 mg/dL 7-18 [facility] Serum or plasma uric acid me asurement (mass/volume)Ordered By: HEALTH ASSESSMENT on 06-18-2023 Urate [Mass/Vol] 4.6 mg/dL 2.6-6.0 [facility] Comment on above: The drugs N-Acetylcy steine and Metamizole may falsely depress this assay. Thin prep Papanicolaou smear with manual screeningOrdered By: HEALTH ASSESSMENT on 06-18-2023 Thin prep Papanicolaou smear with manual screening 10 U/L 15-37 [facility] Thin prep Papanicolaou smear with manual screening 6 5-15 [facility] Urine blood detectionOrdered By: HEALTH ASSESSMENT on 06-18-2023 RBC Ql (U) 10 /ul Negative [facility] Urine clarityOrdered By: HEA LTH ASSESSMENT on 06-18-2023 Clarity (U) Clear Clear [facility] Urine color determinationOrd ered By: HEALTH ASSESSMENT on 06-18-2023 Color (U) Yellow Yellow [facility] Urine glucose detectionOrder ed By: HEALTH ASSESSMENT on 06-18-2023 Glucose Ql (U) Normal mg/dl Normal [facility] Urine leukocyte esterase det ection by dipstickOrdered By: HEALTH ASSESSMENT on 06-18-2023 Leukocyte esterase Test strip Ql (U) 500 /ul Negative [facility] Urine pHOrdered By: HEALTH A SSESSMENT on 06-18-2023 pH (U) 6.5 [pH] 5.0 - 8.0 [facility] Urine specific gravity measu rementOrdered By: HEALTH ASSESSMENT on 06-18-2023 Specific gravity (U) [Rel density] 1.015 1.002-1.03 0 [facility] Urobilinogen Auto test strip Ql (U)Ordered By: HEALTH ASSESSMENT on 06-18-2023 Urobilinogen Ql (U) Normal mg/dl Normal [facility] Absolute lymphocyte countOrd ered By: Dr. Mcgee on 01-27-2023 Lymphocytes Auto (Unsp spec) [#/Vol] 2.06 10*3/uL 0.83-4.51 [facility] Basophil percentageOrdered B y: Dr. Mcgee on 01-27-2023 Basophils/100 WBC (Bld) 0.5 % 0-1 [facility] Bilirubin [Mass/Vol] 0.30 mg/dL 0.20-1.[address] [facility] Comment on above: For patients on eltr ombopag therapy, use of Dimension [place] TBIL is not recommended. Chloride [Moles/Vol] 107 mmol/L 98-[address] [facility] Eosinophils/100 WBC (Bld) 1.4 % 0-5 [facility] Glucose [Mass/Vol] 99 mg/dL 74-106 [facility] Neutrophils (Bld) [#/Vol] 4.7 10*3/uL 2.0-7.7 [facility] Neutrophils/100 WBC (Bld) 64.1 % 47-70 [facility] Potassium [Moles/Vol] 3.8 mmol/L 3.5-5.1 [facility] Protein [Mass/Vol] 6.9 g/dL 6.4-8.2 [facility] Sodium [Moles/Vol] 136 mmol/L 136-145 [facility] WBC (Bld) [#/Vol] 7.3 10*3/uL 4.4-11.0 [facility] Blood erythrocytes count (nu mber/volume)Ordered By: Dr. Mcgee on 01-27-2023 RBC (Bld) [#/Vol] 4.52 10*6/uL 4.2-5.4 [facility] Blood hemoglobin measurement (mass/volume)Ordered By: Dr. Mcgee on 01-27-2023 Hemoglobin (Bld) [Mass/Vol] 12.8 g/dL 12.0-15.0 [facility] Blood lymphocytes/100 leukoc ytesOrdered By: Dr. Mcgee on 01-27-2023 Lymphocytes/100 WBC (Bld) 28.2 % 19-41 [facility] Blood monocytes/100 leukocyt esOrdered By: Dr. Mcgee on 01-27-2023 Monocytes/100 WBC (Bld) 5.5 % 0-10 [facility] Blood platelet mean volumeOr dered By: Dr. Mcgee on 01-27-2023 Platelet mean volume (Bld) [Entitic vol] 10.9 fL 6.2-12.0 [facility] Determination of erythrocyte mean corpuscular volume (MCV)Ordered By: Dr. Mcgee on 01-27-2023 MCV (RBC) [Entitic vol] 86.7 fL 81-99 [facility] Hematocrit Auto (Bld) [Volum e fraction]Ordered By: Dr. Mcgee on 01-27-2023 Hematocrit (Bld) [Volume fraction] 39.2 % 37-47 [facility] - Chemistry and C hemistry - challengeOrdered By: Dr. Mcgee on 01-27-2023 ALP [Catalytic activity/Vol] 70 U/L 45-117 [facility] ALT [Catalytic activity/Vol] 24 U/L 13-56 [facility] CO2 [Moles/Vol] 25.0 mmol/L 21.0-32.0 [facility] Globulin (S) [Mass/Vol] 3.6 g/dL 2.2-4.2 [facility] Urea nitrogen/Creatinine [Mass ratio] 27.2 mg/mg 10-20 [facility] Laboratory - Hematology and Cell countsOrdered By: Dr. Mcgee on 01-27-2023 Erythrocyte distribution width (RBC) [Entitic vol] 42.1 fL 35.1-43.9 [facility] Erythrocyte distribution width (RBC) [Ratio] 13.5 % 11.6-14.6 [facility] Immature granulocytes/100 WBC (Bld) 0.300 % 0.0-0.9 [facility] Comment on above: IG% - Immature Granu locytes (promyelocytes, myelocytes and metamyelocytes) > 1% indicates that a LEFT SHIFT is Present. MCH (RBC) [Entitic mass] 28.3 pg 27.0-32.0 [facility] Nucleated RBC/100 WBC (Bld) [Ratio] 0 % 0-5 [facility] MCHC Auto (RBC) [Mass/Vol]Or dered By: Dr. Mcgee on 01-27-2023 MCHC (RBC) [Mass/Vol] 32.7 g/dL 32-36 [facility] No Panel InformationOrdered By: Dr. Mcgee on 01-27-2023 Estimated GFR (MDRD) Amer 158 mL/min >60 [facility] Comment on above: GFR Calc Estimated GFR (MDRD) Non-Af Amer 131 mL/min >60 [facility] Comment on above: Non- GFR Calc Thyroid Stimulating Hormone (TSH) 2.10 uIU/mL 0.358-3.74 [facility] Platelets bldOrdered By: Dr. Mcgee on 01-27-2023 Platelets (Bld) [#/Vol] 293 10*3/uL 150-450 [facility] Serum or plasma albumin raad urement (mass/volume)Ordered By: Dr. Mcgee on 01-27-2023 Albumin [Mass/Vol] 3.3 g/dL 3.2-5.0 [facility] Serum or plasma albumin/glob ulin mass ratioOrdered By: Dr. Mcgee on 01-27-2023 Albumin/Globulin [Mass ratio] 0.9 {ratio} 0.9-2.4 [facility] Serum or plasma calcium raad urement (mass/volume)Ordered By: Dr. Mcgee on 01-27-2023 Calcium [Mass/Vol] 8.6 mg/dL 8.5-10.1 [facility] Serum or plasma creatinine m easurement (mass/volume)Ordered By: Dr. Mcgee on 01-27-2023 Creatinine [Mass/Vol] 0.59 mg/dL 0.55-1.02 [facility] Comment on above: The validity of the calculated GFR & GFRAA in patients over 70 years has not been determined. Clinical correlation is essential. Serum or plasma thyroperoxid ase antibody assay (units/volume)Ordered By: Dr. Mcgee on 01-27-2023 TPO Ab Qn 10 [IU]/mL 0-34 [facility] Comment on above: Performed at: [place] [id number] Director: Roque Soriano PhD, Phone: [phone] Serum or plasma urea nitroge n measurement (mass/volume)Ordered By: Dr. Mcgee on 01-27-2023 Urea nitrogen [Mass/Vol] 16 mg/dL 7-18 [facility] Thin prep Papanicolaou smear with manual screeningOrdered By: Dr. Mcgee on 01-27-2023 Thin prep Papanicolaou smear with manual screening 13 U/L 15-37 [facility] Thin prep Papanicolaou smear with manual screening 4 5-15 [facility] Influenza virus A and B and SARS-CoV-2 (COVID-19) Ag panel - Upper respiratory specimOrdered By: Dr. Alves on 09-30-2022 SARS-CoV-2 & FLU Antigen (Rapid) Influenzae A [facility] RSV Ag EIAOrdered By: Dr. Sun martínez on 09-30-2022 RSV Ag Immune stain Ql (Tiss) [facility] Serum or plasma progesterone measurement (mass/volume)Ordered By: Cari Holman on 09-23-2022 Progesterone [Mass/Vol] 2.87 ng/mL See Comment [facility] Comment on above: Progesterone Referen ce Table: UNITS Female: Follicular 0.15 - 1.40 ng/mL Luteal 3.34 - 25.56 ng/mL Mid-luteal 4.44 - 28.03 ng/mL Postmenopausal 0.0 - 0.73 ng/mL : 1st Trimester 11.22 - 90.00 ng/mL 2nd Trimester 25.55 - 89.40 ng/mL 3rd Trimester 48.40 -422.50 ng/mL No Panel Informationon 08-25 POC Bacterial Vaginitis (Rapid) Negative [facility] Work Phone: Serum or plasma prolactin me asurement (mass/volume)on 08-25-2022 Prolactin [Mass/Vol] 15.5 ng/mL [facility] Work Phone: Comment on above: NORMAL REFERENCE RAN GES FEMALE NON- 2.2 - 30.3 ng/mL 8.1 - 347.6 ng/mL POST-MENOPAUSAL 0.7 - 31.5 ng/mL MALE 2.5 - 17.4 ng/mL No Panel Informationon 07-30 Dehydroepiandrosterone Sulfate 222.0 ug/dL 84.8-378.0 [facility] Work Phone: Miscellaneous Test See comment [facility] Work Phone: Comment on above: Sent directly to [facility] per ordering physician. Serum or plasma prolactin me asurement (mass/volume)on 07-30-2022 Prolactin [Mass/Vol] 43.7 ng/mL [facility] Work Phone: Comment on above: NORMAL REFERENCE RAN GES FEMALE NON- 2.2 - 30.3 ng/mL 8.1 - 347.6 ng/mL POST-MENOPAUSAL 0.7 - 31.5 ng/mL MALE 2.5 - 17.4 ng/mL Serum or plasma testosterone free measurement (mass/volume)on 07-30-2022 Testosterone Free [Mass/Vol] 1.2 pg/mL 0.0-4.2 [facility] Work Phone: Comment on above: Performed at: [facility] [place] [address] [id number] Director: Roque Soriano PhD, Phone: [phone] at: [facility] [place] [id number] Director: Stefano Lopez MD, Phone: [phone] Absolute lymphocyte counton 07-08-2022 Lymphocytes Auto (Unsp spec) [#/Vol] 2.12 10*3/uL 0.83-4.51 [facility] Work Phone: [phone] Absolute reticulocyte counto n 07-08-2022 Reticulocytes (Bld) [#/Vol] 0.00 10*3/uL 0-5 [facility] Work Phone: Basophil percentageon 2021 Basophil percentage 3.5 mg/dL 2.5-4.9 [facility] Work Phone: [phone] Bilirubin [Mass/Vol] 0.40 mg/dL 0.20-1.[address] [facility] Work Phone: [phone] Comment on above: For patients on eltr ombopag therapy, use of Dimension [place] TBIL is not recommended. Chloride [Moles/Vol] 105 mmol/L 98-[address] [facility] Work Phone: [phone] Cholesterol [Mass/Vol] 143 mg/dL <200 [facility] Work Phone: [phone] Comment on above: <200 mg/dL Desirable 200-240 mg/dL Borderline >240 mg/dL High Risk Glucose [Mass/Vol] 95 mg/dL 74-106 [facility] Work Phone: [phone] Neutrophils (Bld) [#/Vol] 3.0 10*3/uL 2.0-7.7 [facility] Work Phone: [phone] Potassium [Moles/Vol] 3.6 mmol/L 3.5-5.1 [facility] Work Phone: [phone] Protein [Mass/Vol] 7.1 g/dL 6.4-8.2 [facility] Work Phone: [phone] Sodium [Moles/Vol] 139 mmol/L 136-145 [facility] Work Phone: [phone] Triglyceride [Mass/Vol] 69 mg/dL <199 [facility] Work Phone: Comment on above: The drugs N-Acetylcy steine and Metamizole may falsely depress this assay.Serum Triglycerides Reference Interval Normal <150 mg/dL Borderline high 150 - 199 mg/dL High 200 - 499 mg/dL Very High > or = 500 mg/dL WBC (Bld) [#/Vol] 5.6 10*3/uL 4.4-11.0 [facility] Work Phone: Bilirubin Test strip Ql (U)o n 07-08-2022 Bilirubin Ql (U) Negative Negative [facility] Work Phone: Blood erythrocytes count (nu mber/volume)on 07-08-2022 RBC (Bld) [#/Vol] 4.73 10*6/uL 4.2-5.4 [facility] Work Phone: Blood hemoglobin measurement (mass/volume)on 07-08-2022 Hemoglobin (Bld) [Mass/Vol] 13.2 g/dL 12.0-15.0 [facility] Work Phone: Blood platelet mean volumeon 07-08-2022 Platelet mean volume (Bld) [Entitic vol] 11.0 fL 6.2-12.0 [facility] Work Phone: Determination of erythrocyte mean corpuscular volume (MCV)on 07-08-2022 MCV (RBC) [Entitic vol] 86.0 fL 81-99 [facility] Work Phone: Direct bilirubinon Bilirubin.direct [Mass/Vol] 0.10 mg/dL 0.00-0.30 [facility] Work Phone: Hematocrit Auto (Bld) [Volum e fraction]on 07-08-2022 Hematocrit (Bld) [Volume fraction] 40.7 % 37-47 [facility] Work Phone: Iron measurement (mass/mass) on 07-08-2022 Iron (Unsp spec) [Mass/Mass] 65 ug/dL 50-170 [facility] Work Phone: Ketones Test strip Ql (U)on 07-08-2022 Ketones Ql (U) 5 mg/dl Negative [facility] Work Phone: [phone] Laboratory - Chemistry and C hemistry - challengeon 07-08-2022 Cobalamin (Vitamin B12) [Mass/Vol] 725 pg/mL 211-911 [facility] Work Phone: Free T4 [Mass/Vol] 1.03 ng/dL 0.76-1.46 [facility] Work Phone: ALP [Catalytic activity/Vol] 73 U/L 45-117 [facility] Work Phone: ALT [Catalytic activity/Vol] 23 U/L 13-56 [facility] Work Phone: Cholesterol.total/Dotty sterol in HDL [Mass ratio] 2.60 {ratio} [facility] Work Phone: CO2 [Moles/Vol] 27.0 mmol/L 21.0-32.0 [facility] Work Phone: Globulin (S) [Mass/Vol] 3.7 g/dL 2.2-4.2 [facility] Work Phone: Urea nitrogen/Creatinine [Mass ratio] 25.0 mg/mg 10-20 [facility] Work Phone: Laboratory - Hematology and Cell countson 07-08-2022 Erythrocyte distribution width (RBC) [Entitic vol] 41.9 fL 35.1-43.9 [facility] Work Phone: Erythrocyte distribution width (RBC) [Ratio] 13.3 % 11.6-14.6 [facility] Work Phone: MCH (RBC) [Entitic mass] 27.9 pg 27.0-32.0 [facility] Work Phone: Nucleated RBC/100 WBC (Bld) [Ratio] 0 % 0-5 [facility] Work Phone: MCHC Auto (RBC) [Mass/Vol]on 07-08-2022 MCHC (RBC) [Mass/Vol] 32.4 g/dL 32-36 [facility] Work Phone: Nitrite Test strip Ql (U)on 07-08-2022 Nitrite Ql (U) Negative Negative [facility] Work Phone: No Panel Informationon 07-08 Thyroid Stimulating Hormone (TSH) 2.03 uIU/mL 0.358-3.74 [facility] Work Phone: Vitamin D 25-Hydroxy 27.3 ng/mL [facility] Work Phone: Comment on above: Vitamin D 25(OH) Sta tus Range Deficiency <20 ng/mL (50nmol/L) Insufficiency 20 - 30 ng/mL (50 - 75 nmol/L) Sufficiency 30 - 100 ng/mL (75 - 250 nmol/L) Toxicity >100 ng/mL (>250 nmol/L) Estimated GFR (MDRD) Amer 155 mL/min >60 [facility] Work Phone: Comment on above: GFR Calc Estimated GFR (MDRD) Non-Af Amer 128 mL/min >60 [facility] Work Phone: Comment on above: Non- GFR Calc Platelets bldon 07-08-2022 Platelets (Bld) [#/Vol] 293 10*3/uL 150-450 [facility] Work Phone: Protein Test strip Ql (U)on 07-08-2022 Protein Ql (U) 15 mg/dl Negative [facility] Work Phone: Segmented neutrophils/100 WB C Auto (Bld)on 07-08-2022 Segmented neutrophils/100 WBC (Bld) 52.5 % 47-70 [facility] Work Phone: Serum or plasma albumin raad urement (mass/volume)on 07-08-2022 Albumin [Mass/Vol] 3.4 g/dL 3.2-5.0 [facility] Work Phone: [phone] Serum or plasma albumin/glob ulin mass ratioon 07-08-2022 Albumin/Globulin [Mass ratio] 0.9 {ratio} 0.9-2.4 [facility] Work Phone: Serum or plasma calcium raad urement (mass/volume)on 07-08-2022 Calcium [Mass/Vol] 8.8 mg/dL 8.5-10.1 [facility] Work Phone: Serum or plasma cholesterol in HDL measurement (mass/volume)on 07-08-2022 Cholesterol in HDL [Mass/Vol] 55 mg/dL >40 [facility] Work Phone: Comment on above: The drugs N-Acetylcy steine and Metamizole may falsely depress this assay. Reference Range HDL <40 mg/dL Low HDL Cholesterol HDL >or= 60 mg/dL High HDL Cholesterol Serum or plasma cholesterol in VLDL measurement (mass/volume)on 07-08-2022 Cholesterol in VLDL [Mass/Vol] 14 mg/dL 5-40 [facility] Work Phone: Serum or plasma cortisol thierno surement (mass/volume)on 07-08-2022 Cortisol [Mass/Vol] 17.50 ug/dL 3.44-22.[address] [facility] Work Phone: Comment on above: Adult (AM) 5.27 - 22 .45 ug/dL Adult (PM) 3.44 - 16.76 ug/dLPlease note revised CORTISOL reference range effective 2019. Serum or plasma creatinine m easurement (mass/volume)on 07-08-2022 Creatinine [Mass/Vol] 0.60 mg/dL 0.55-1.02 [facility] Work Phone: Comment on above: The validity of the calculated GFR & GFRAA in patients over 70 years has not been determined. Clinical correlation is essential. Serum or plasma ferritin thierno surement (mass/volume)on 07-08-2022 Ferritin [Mass/Vol] 41 ng/mL 8-252 [facility] Work Phone: Serum or plasma low density lipoprotein (LDL) cholesterol measurement (mass/volume)on 07-08-2022 Cholesterol in LDL [Mass/Vol] 74 mg/dL 0-130 [facility] Work Phone: Serum or plasma urea nitroge n measurement (mass/volume)on 07-08-2022 Urea nitrogen [Mass/Vol] 15 mg/dL 7-18 [facility] Work Phone: [phone] Serum or plasma uric acid me asurement (mass/volume)on 07-08-2022 Urate [Mass/Vol] 4.9 mg/dL 2.6-6.0 [facility] Work Phone: Comment on above: The drugs N-Acetylcy steine and Metamizole may falsely depress this assay. Thin prep Papanicolaou smear with manual screeningon 07-08-2022 Thin prep Papanicolaou smear with manual screening 13 U/L 15-37 [facility] Work Phone: Thin prep Papanicolaou smear with manual screening 7 5-15 [facility] Work Phone: Thin prep Papanicolaou smear with manual screening 188 U/L 84-246 [facility] Work Phone: [phone] Urine blood detectionon 06-26 RBC Ql (U) 10 /ul Negative [facility] Work Phone: [phone] Urine clarityon 07-08-2022 Clarity (U) Sl. Cloudy Clear [facility] Work Phone: Urine color determinationon 07-08-2022 Color (U) Yellow Yellow [facility] Work Phone: Urine glucose detectionon Glucose Ql (U) Normal mg/dl Normal [facility] Work Phone: Urine leukocyte esterase det ection by dipstickon 07-08-2022 Leukocyte esterase Test strip Ql (U) 25 /ul Negative [facility] Work Phone: Urine pHon 07-08-2022 pH (U) 6.0 [pH] 5.0 - 8.0 [facility] Work Phone: [phone] Urine specific gravity measu rementon 07-08-2022 Specific gravity (U) [Rel density] 1.025 1.002-1.03 0 [facility] Work Phone: Urobilinogen Auto test strip Ql (U)on 07-08-2022 Urobilinogen Ql (U) Normal mg/dl Normal [facility] Work Phone: Serum or plasma choriogonado tropin detectionon 04-16-2022 HCG ( test) Ql < 1 mIU/mL <4 [facility] Work Phone: Comment on above: hCG levels with Gest ational AgeGestational Age hCG mIU/mL (IU/L)0.2 - 1 week 5 - 501-2 weeks 50 - 5002-3 weeks 100 - 64121-8 weeks 500 - 870591-4 weeks 1000 - 397651-1 weeks 25426 - 100,0006-8 weeks 74523 - 200,0002-3 months 31164 - 100,000 Basophil percentageon 2021 Chloride [Moles/Vol] 106 mmol/L 98-[address] [facility] Work Phone: Glucose [Mass/Vol] 113 mg/dL 74-106 [facility] Work Phone: Comment on above: Fasting Glucose resu lt from 100 to 125 mg/dL suggests IMPAIRED HOMEOSTASIS per A.D.A. criteria. Potassium [Moles/Vol] 3.4 mmol/L 3.5-5.1 [facility] Work Phone: Sodium [Moles/Vol] 139 mmol/L 136-145 [facility] Work Phone: WBC (Bld) [#/Vol] 8.4 10*3/uL 4.4-11.0 [facility] Work Phone: Blood erythrocytes count (nu mber/volume)on 03-06-2022 RBC (Bld) [#/Vol] 4.37 10*6/uL 4.2-5.4 [facility] Work Phone: Blood hemoglobin measurement (mass/volume)on 03-06-2022 Hemoglobin (Bld) [Mass/Vol] 12.4 g/dL 12.0-15.0 [facility] Work Phone: Blood platelet mean volumeon 03-06-2022 Platelet mean volume (Bld) [Entitic vol] 11.0 fL 6.2-12.0 [facility] Work Phone: [phone] Determination of erythrocyte mean corpuscular volume (MCV)on 03-06-2022 MCV (RBC) [Entitic vol] 85.6 fL 81-99 [facility] Work Phone: [phone] Erythrocyte sedimentation ra rosanne 03-06-2022 ESR (Bld) [Velocity] 26 mm/h 0-[address] [facility] Work Phone: [phone] Hematocrit Auto (Bld) [Volum e fraction]on 03-06-2022 Hematocrit (Bld) [Volume fraction] 37.4 % 37-47 [facility] Work Phone: [phone] Laboratory - Chemistry and C hemistry - challengeon 03-06-2022 CO2 [Moles/Vol] 25.0 mmol/L 21.0-32.0 [facility] Work Phone: Magnesium [Mass/Vol] 2.1 mg/dL 1.6-2.[address] [facility] Work Phone: [phone] Urea nitrogen/Creatinine [Mass ratio] 20.1 mg/mg 10-20 [facility] Work Phone: Laboratory - Hematology and Cell countson 03-06-2022 Erythrocyte distribution width (RBC) [Entitic vol] 41.5 fL 35.1-43.9 [facility] Work Phone: [phone] Erythrocyte distribution width (RBC) [Ratio] 13.3 % 11.6-14.6 [facility] Work Phone: [phone] MCH (RBC) [Entitic mass] 28.4 pg 27.0-32.0 [facility] Work Phone: MCHC Auto (RBC) [Mass/Vol]on 03-06-2022 MCHC (RBC) [Mass/Vol] 33.2 g/dL 32-36 [facility] Work Phone: [phone] No Panel Informationon 03-06 Estimated GFR (MDRD) Amer 143 mL/min >60 [facility] Work Phone: Comment on above: GFR Calc Estimated GFR (MDRD) Non-Af Amer 118 mL/min >60 [facility] Work Phone: Comment on above: Non- GFR Calc Platelets bldon 03-06-2022 Platelets (Bld) [#/Vol] 342 10*3/uL 150-450 [facility] Work Phone: Serum or plasma calcium arad urement (mass/volume)on 03-06-2022 Calcium [Mass/Vol] 8.9 mg/dL 8.5-10.1 [facility] Work Phone: Serum or plasma creatinine m easurement (mass/volume)on 03-06-2022 Creatinine [Mass/Vol] 0.65 mg/dL 0.55-1.02 [facility] Work Phone: Comment on above: The validity of the calculated GFR & GFRAA in patients over 70 years has not been determined. Clinical correlation is essential. Serum or plasma urea nitroge n measurement (mass/volume)on 03-06-2022 Urea nitrogen [Mass/Vol] 13 mg/dL 7-18 [facility] Work Phone: Thin prep Papanicolaou smear with manual screeningon 03-06-2022 Thin prep Papanicolaou smear with manual screening 8 5-15 [facility] Work Phone: No Panel Informationon 11-25 D-Dimer Quantitative (PE/DVT) 0.55 FEU/ug/m 0.27-0.49 [facility] Work Phone: Comment on above: D-Dimer ELEVATED (>0 .49): Additional studies and clinicalassessments are indicated to conclude diagnosis of:Deep Vein Thrombosis (DVT) or Pulmonary Embolism (PE)RESULTS CALLED TO Emory JOHNSON RN P 11/25/21 1251 Darlene Lundy.REPORT READ BACK BY SAME. Absolute lymphocyte counton 11-21-2021 Lymphocytes Auto (Unsp spec) [#/Vol] 2.70 10*3/uL 0.83-4.51 [facility] Work Phone: Basophil percentageon 2021 Basophils/100 WBC (Bld) 0.2 % 0-1 [facility] Work Phone: Chloride [Moles/Vol] 105 mmol/L 98-[address] [facility] Work Phone: Eosinophils/100 WBC (Bld) 0.9 % 0-5 [facility] Work Phone: Glucose [Mass/Vol] 106 mg/dL 74-106 [facility] Work Phone: Comment on above: Fasting Glucose resu lt from 100 to 125 mg/dL suggests IMPAIRED HOMEOSTASIS per A.D.A. criteria. Neutrophils (Bld) [#/Vol] 5.2 10*3/uL 2.0-7.7 [facility] Work Phone: Neutrophils/100 WBC (Bld) 61.4 % 47-70 [facility] Work Phone: Potassium [Moles/Vol] 3.7 mmol/L 3.5-5.1 [facility] Work Phone: Sodium [Moles/Vol] 137 mmol/L 136-145 [facility] Work Phone: WBC (Bld) [#/Vol] 8.5 10*3/uL 4.4-11.0 [facility] Work Phone: Beta hCG serum qualon 2021 Beta HCG ( test) Ql Negative [facility] Work Phone: Blood erythrocytes count (nu mber/volume)on 11-21-2021 RBC (Bld) [#/Vol] 4.72 10*6/uL 4.2-5.4 [facility] Work Phone: Blood hemoglobin measurement (mass/volume)on 11-21-2021 Hemoglobin (Bld) [Mass/Vol] 13.2 g/dL 12.0-15.0 [facility] Work Phone: Blood lymphocytes/100 leukoc yteson 11-21-2021 Lymphocytes/100 WBC (Bld) 31.9 % 19-41 [facility] Work Phone: Blood monocytes/100 leukocyt eson 11-21-2021 Monocytes/100 WBC (Bld) 5.2 % 0-10 [facility] Work Phone: Blood platelet mean volumeon 11-21-2021 Platelet mean volume (Bld) [Entitic vol] 10.8 fL 6.2-12.0 [facility] Work Phone: [phone] Determination of erythrocyte mean corpuscular volume (MCV)on 11-21-2021 MCV (RBC) [Entitic vol] 84.7 fL 81-99 [facility] Work Phone: Hematocrit Auto (Bld) [Volum e fraction]on 11-21-2021 Hematocrit (Bld) [Volume fraction] 40.0 % 37-47 [facility] Work Phone: [phone] Laboratory - Chemistry and C hemistry - challengeon 11-21-2021 CO2 [Moles/Vol] 27.0 mmol/L 21.0-32.0 [facility] Work Phone: [phone] Urea nitrogen/Creatinine [Mass ratio] 16.1 mg/mg 10-20 [facility] Work Phone: Laboratory - Hematology and Cell countson 11-21-2021 Erythrocyte distribution width (RBC) [Entitic vol] 38.8 fL 35.1-43.9 [facility] Work Phone: Erythrocyte distribution width (RBC) [Ratio] 12.6 % 11.6-14.6 [facility] Work Phone: [phone] Immature granulocytes/100 WBC (Bld) 0.400 % 0.0-0.9 [facility] Work Phone: [phone] Comment on above: IG% - Immature Granu locytes (promyelocytes, myelocytes and metamyelocytes) > 1% indicates that a LEFT SHIFT is Present. MCH (RBC) [Entitic mass] 28.0 pg 27.0-32.0 [facility] Work Phone: Nucleated RBC/100 WBC (Bld) [Ratio] 0 % 0-5 [facility] Work Phone: MCHC Auto (RBC) [Mass/Vol]on 11-21-2021 MCHC (RBC) [Mass/Vol] 33.0 g/dL 32-36 [facility] Work Phone: No Panel Informationon 11-21 D-Dimer Quantitative (PE/DVT) 0.64 FEU/ug/m 0.27-0.49 [facility] Work Phone: Comment on above: CRITICAL VALUE VERIF IED. CALLED TO WALT [id number] Sejal Rogel.RESULTS READ BACK BY SAME . D-Dimer ELEVATED (>0.49): Additional studies and clinicalassessments are indicated to conclude diagnosis of:Deep Vein Thrombosis (DVT) or Pulmonary Embolism (PE) Estimated Creatinine Clearance Calc 100.03 ml/min [facility] Work Phone: Estimated GFR (MDRD) Amer 134 mL/min >60 [facility] Work Phone: Comment on above: GFR Calc Estimated GFR (MDRD) Non-Af Amer 110 mL/min >60 [facility] Work Phone: Comment on above: Non- GFR Calc Troponin I High Sensitivity < 3 pg/mL 3.0-54.0 [facility] Work Phone: Comment on above: Please Note: New Mansi t Units and Gender Specific Reference Ranges. For more information see Policy Stat Procedure [place] High Sensitivity Troponin (TNIH) and attachments. Platelets bldon 11-21-2021 Platelets (Bld) [#/Vol] 331 10*3/uL 150-450 [facility] Work Phone: Serum or plasma calcium raad urement (mass/volume)on 11-21-2021 Calcium [Mass/Vol] 8.7 mg/dL 8.5-10.1 [facility] Work Phone: Serum or plasma creatinine m easurement (mass/volume)on 11-21-2021 Creatinine [Mass/Vol] 0.68 mg/dL 0.55-1.02 [facility] Work Phone: Comment on above: The validity of the calculated GFR & GFRAA in patients over 70 years has not been determined. Clinical correlation is essential. Serum or plasma urea nitroge n measurement (mass/volume)on 11-21-2021 Urea nitrogen [Mass/Vol] 11 mg/dL 7-18 [facility] Work Phone: Thin prep Papanicolaou smear with manual screeningon 11-21-2021 Thin prep Papanicolaou smear with manual screening 5 5-15 [facility] Work Phone: Laboratory - Microbiology an d Antimicrobial susceptibilityon 11-12-2021 SARS-CoV-2 (COVID-19) RNA JAMARCUS+probe Ql (Unsp spec) Detected [facility] Work Phone: Laboratory - Microbiology an d Antimicrobial susceptibilityon 11-11-2021 SARS-CoV-2 (COVID-19) RNA JAMARCUS+probe Ql (Unsp spec) Not detected [facility] Work Phone: Gram stain for investigation of transfusion reaction Microscopic observation Gram stain Nom (Unsp spec) [facility] Work Phone: Influenza virus A and B and SARS-CoV-2 (COVID-19) Ag panel - Upper respiratory specim SARS-CoV-2 & FLU Antigen (Rapid) Influenzae A [facility] Work Phone: RSV Ag EIA RSV Ag Immune stain Ql (Tiss) [facility] Work Phone: Thin prep Papanicolaou smear with manual screening Cytopathology procedure, preparation of smear, genital source Neisseria or beta-hemolytic Streptococcus isolated. [facility] Work Phone: Thin prep Papanicolaou smear with manual screening Neisseria or beta-hemolytic Streptococcus isolated. [facility] Work Phone: Vital Signs Date Time Vital Sign Value Performing Clinician Johnny tavares 05-12-2025 06:47-0400 Body mass index (BMI) [Ratio] 42.7 kg/m2 Lala KELLEYC Work Phone: [facility] 05-12-2025 06:47-0400 Body weight 109.31 kg Lala Tate SAW FILER-C Work Phone: [facility] 05-12-2025 06:47-0400 Diastolic blood pressure 84 mm[Hg] Lala Tate SAW FILER-C Work Phone: [facility] 05-12-2025 06:47-0400 Heart rate 80 /min Lalayina Ybarra SAW FILER-C Work Phone: [facility] 05-12-2025 06:47-0400 Respiratory rate 18 /min Lala Tate SAW FILER-C Work Phone: [facility] 05-12-2025 06:47-0400 SaO2% (BldA) [Mass fraction] 100 % Lala Tate SAW FILER-C Work Phone: [facility] 05-12-2025 06:47-0400 Systolic blood pressure 125 mm[Hg] Lala Tate SAW FILER-C Work Phone: [facility] 03-15-2025 09:26-0400 Body weight 115.21 kg Scottie Chance MD Work Phone: [facility] 03-15-2025 09:26-0400 Diastolic blood pressure 86 mm[Hg] Scottie Chance MD Work Phone: [facility] 03-15-2025 09:26-0400 Systolic blood pressure 136 mm[Hg] Scottie Chance MD Work Phone: [facility] 03-08-2025 08:44-0400 Body weight 115.67 kg Scottie Chance MD Work Phone: [facility] 03-08-2025 08:44-0400 Diastolic blood pressure 82 mm[Hg] Scottie Chance MD Work Phone: [facility] 03-08-2025 08:44-0400 Systolic blood pressure 122 mm[Hg] Scottie Chance MD Work Phone: [facility] 01-27-2025 15:33-0400 Body height 160.02 cm Lala Ybarra SAW FILER-C Work Phone: 1(103)335-595634 [place] [address] 01-27-2025 15:33-0400 Body mass index (BMI) [Ratio] 45 kg/m2 Lala Ybarra SAW FILER-C Work Phone: 4(637)428-407381 [place] [address] 01-27-2025 15:33-0400 Body weight 115.32 kg Lala Ybarra SAW FILER-C Work Phone: 8(472)872-774281 [place] [address] 01-27-2025 15:33-0400 Diastolic blood pressure 76 mm[Hg] Lala Ybarra SAW FILER-C Work Phone: 1(460)792-405581 [place] [address] 01-27-2025 15:33-0400 Systolic blood pressure 138 mm[Hg] Lala Ybarra SAW FILER-C Work Phone: 2(577)961-784181 [place] [address] 01-24-2025 13:37-0400 Body mass index (BMI) [Ratio] 44.9 kg/m2 Lala Ybarra SAW FILER-C Work Phone: 0(911)332-788181 [place] [address] 01-24-2025 13:37-0400 Body weight 115.21 kg Lala Ybarra SAW FILER-C Work Phone: 6(967)395-472081 [place] [address] 01-24-2025 13:37-0400 Diastolic blood pressure 76 mm[Hg] Llaa Ybarra SAW FILER-C Work Phone: 6(116)024-422681 [place] [address] 01-24-2025 13:37-0400 Systolic blood pressure 122 mm[Hg] Lala Ybarra SAW FILER-C Work Phone: 3(645)068-154281 [place] [address] 12-07-2024 09:08-0500 Body temperature 98.5 [degF] Lala Ybarra SAW FILER-C Work Phone: 4(848)013-804981 [place] [address] 12-07-2024 09:08-0500 Diastolic blood pressure 80 mm[Hg] Lala Ybarra SAW FILER-C Work Phone: 5(669)819-027581 [place] [address] 12-07-2024 09:08-0500 Heart rate 88 /min Lala Ybarra SAW FILER-C Work Phone: 6(016)826-067681 [place] [address] 12-07-2024 09:08-0500 Respiratory rate 16 /min Lala Ybarra SAW FILER-C Work Phone: [facility] 12-07-2024 09:08-0500 SaO2% (BldA) [Mass fraction] 99 % Lala Ybarra SAW FILER-C Work Phone: [facility] 12-07-2024 09:08-0500 Systolic blood pressure 126 mm[Hg] Lala Ybarra SAW FILER-C Work Phone: [facility] 11-02-2024 07:03-0500 Body temperature 98.1 [degF] Lala Ybarra SAW FILER-C Work Phone: 3(800)323-326534 [place] [address] 11-02-2024 07:03-0500 Diastolic blood pressure 72 mm[Hg] Lala Ybarra SAW FILER-C Work Phone: 0(915)357-387134 [place] [address] 11-02-2024 07:03-0500 Heart rate 94 /min Lala Ybarra SAW FILER-C Work Phone: 7(366)825-552534 [place] [address] 11-02-2024 07:03-0500 Respiratory rate 16 /min Lala Ybarra SAW FILER-C Work Phone: 6(719)811-593434 [place] [address] 11-02-2024 07:03-0500 SaO2% (BldA) [Mass fraction] 98 % Lala Ybarra SAW FILER-C Work Phone: [facility] 11-02-2024 07:03-0500 Systolic blood pressure 120 mm[Hg] Lala Ybarra NP-C Work Phone: [facility] 01-29-2024 12:27-0400 Diastolic blood pressure 80 mm[Hg] Dr. Francisco Stock Work Phone: [facility] 01-29-2024 12:27-0400 Systolic blood pressure 118 mm[Hg] Dr. Francisco Stock Work Phone: [facility] 01-29-2024 12:17-0400 Body height 157.[address] Francisco Stock Work Phone: [facility] 01-29-2024 12:17-0400 Body mass index (BMI) [Ratio] 38.2 kg/m2 Dr. Francisco Stock Work Phone: 5(610)656-348520 [place] [address] 01-29-2024 12:17-0400 Body weight 94.[address] Francisco Stock Work Phone: 9(920)325-299620 [place] [address] 01-29-2024 12:17-0400 Heart rate 86 /min Dr. Francisco Stock Work Phone: 4(706)601-639320 [place] [address] 12-29-2023 11:48-0500 Body mass index (BMI) [Ratio] 37.5 kg/m2 Dr. Francisco Stock Work Phone: 5(505)072-910013 [place] [address] 12-29-2023 11:48-0500 Body weight 92.[address] Francisco Stock Work Phone: 0(990)028-135013 [place] [address] 12-29-2023 11:48-0500 Diastolic blood pressure 80 mm[Hg] Dr. Francisco Stock Work Phone: 7(819)660-729613 [place] [address] 12-29-2023 11:48-0500 Heart rate 88 /min Dr. Francisco Stock Work Phone: 6(117)490-113513 [place] [address] 12-29-2023 11:48-0500 Systolic blood pressure 128 mm[Hg] Dr. Francisco Stock Work Phone: 1(859)734-748413 [place] [address] 12-04-2023 11:04-0500 Body height 157.[address] Panda Stock Work Phone: 4(442)310-755070 [address] 12-04-2023 11:04-0500 Body mass index (BMI) [Ratio] 38.2 kg/m2 Dr. Panda Stock Work Phone: 6(211)246-932513 [place] [address] 12-04-2023 11:04-0500 Body weight 94.[address] Panda Stock Work Phone: 5(032)615-155513 [place] [address] 12-04-2023 11:04-0500 Diastolic blood pressure 78 mm[Hg] Dr. Panda Stock Work Phone: 5(032)038-308413 [place] [address] 12-04-2023 11:04-0500 Heart rate 82 /min Dr. Panda Stock Work Phone: [facility] 12-04-2023 11:04-0500 Systolic blood pressure 121 mm[Hg] Dr. Panda Stock Work Phone: [facility] 11-02-2023 13:51-0500 Body mass index (BMI) [Ratio] 39.2 kg/m2 Dr. Panda Stock Work Phone: 0(753)894-227020 [place] [address] 11-02-2023 13:51-0500 Body weight 97.[address] Panda Stock Work Phone: 8(490)427-109770 [address] 11-02-2023 13:51-0500 Diastolic blood pressure 80 mm[Hg] Dr. Panda Stock Work Phone: 8(176)725-405170 [address] 11-02-2023 13:51-0500 Heart rate 90 /min Dr. Panda Stock Work Phone: 9(862)504-464470 [address] 11-02-2023 13:51-0500 Respiratory rate 16 /min Dr. Panda Stock Work Phone: 6(786)338-318970 [address] 11-02-2023 13:51-0500 SaO2% (BldA) [Mass fraction] 92 % Dr. Panda Stock Work Phone: 7(776)538-833820 [place] [address] 11-02-2023 13:51-0500 Systolic blood pressure 116 mm[Hg] Dr. Panda Stock Work Phone: [facility] 10-05-2023 14:01-0500 Body mass index (BMI) [Ratio] 38.8 kg/m2 Dr. Panda Stock Work Phone: 8(171)755-614620 [place] [address] 10-05-2023 14:01-0500 Body weight 96.[address] Panda Stock Work Phone: 4(290)602-981120 [place] [address] 10-05-2023 14:01-0500 Diastolic blood pressure 68 mm[Hg] Dr. Panda Stock Work Phone: [facility] 10-05-2023 14:01-0500 Systolic blood pressure 118 mm[Hg] Dr. Panda Stock Work Phone: [facility] 09-10-2023 15:28-0500 Body height 157.[address] Panda Stock Work Phone: 2(152)734-084520 [place] [address] 09-10-2023 15:21-0500 Body mass index (BMI) [Ratio] 39.2 kg/m2 Dr. Panda Stock Work Phone: [facility] 09-10-2023 15:21-0500 Body weight 97.[address] Panda Stock Work Phone: 7(376)711-467120 [place] [address] 09-10-2023 15:21-0500 Diastolic blood pressure 78 mm[Hg] Dr. Panda Stock Work Phone: 8(467)017-089320 [place] [address] 09-10-2023 15:21-0500 Systolic blood pressure 98 mm[Hg] Dr. Panda Stock Work Phone: [facility] 08-13-2023 14:25-0400 Body temperature 97.2 [degF] Dr. Panda Stock Work Phone: [facility] 08-13-2023 14:25-0400 Diastolic blood pressure 82 mm[Hg] Dr. Panda Stock Work Phone: [facility] 08-13-2023 14:25-0400 Heart rate 102 /min Dr. Panda Stock Work Phone: [facility] 08-13-2023 14:25-0400 Respiratory rate 17 /min Dr. Panda Stock Work Phone: [facility] 08-13-2023 14:25-0400 SaO2% (BldA) [Mass fraction] 95 % Dr. Panda Stock Work Phone: [facility] 08-13-2023 14:25-0400 Systolic blood pressure 127 mm[Hg] Dr. Panda Stock Work Phone: [facility] 08-13-2023 13:44-0400 Body mass index (BMI) [Ratio] 39.3 kg/m2 Dr. Panda Stock Work Phone: [facility] 08-13-2023 13:44-0400 Body weight 97.[address] Panda Stock Work Phone: [facility] 08-13-2023 13:44-0400 Diastolic blood pressure 76 mm[Hg] Dr. Panda Stock Work Phone: [facility] 08-13-2023 13:44-0400 Heart rate 90 /min Dr. Panda Stock Work Phone: [facility] 08-13-2023 13:44-0400 Systolic blood pressure 123 mm[Hg] Dr. Panda Stock Work Phone: [facility] 07-17-2023 13:49-0400 Body mass index (BMI) [Ratio] 39.9 kg/m2 Dr. Panda Stock Work Phone: [facility] 07-17-2023 13:49-0400 Body weight 98.[address] Panda Stock Work Phone: [facility] 07-17-2023 13:49-0400 Diastolic blood pressure 70 mm[Hg] Dr. Panda Stock Work Phone: [facility] 07-17-2023 13:49-0400 Heart rate 94 /min Dr. Panda Stock Work Phone: [facility] 07-17-2023 13:49-0400 Systolic blood pressure 108 mm[Hg] Dr. Panda Stock Work Phone: [facility] 06-19-2023 10:52-0400 Body mass index (BMI) [Ratio] 40.1 kg/m2 Dr. Panda Stock Work Phone: [facility] 06-19-2023 10:52-0400 Body weight 99.[address] Panda Stock Work Phone: [facility] 06-19-2023 10:52-0400 Diastolic blood pressure 82 mm[Hg] Dr. Panda Stock Work Phone: [facility] 06-19-2023 10:52-0400 Systolic blood pressure 122 mm[Hg] Dr. Panda Stock Work Phone: [facility] 01-26-2023 16:35-0400 Body height 157.[address] Panda Stcok Work Phone: 5(609)166-946320 [place] [address] 01-26-2023 16:32-0400 Body mass index (BMI) [Ratio] 43 kg/m2 Dr. Panda Stock Work Phone: 3(204)764-705220 [place] [address] 01-26-2023 16:32-0400 Body weight 106.[address] Panda Stock Work Phone: 2(694)511-979720 [place] [address] 01-26-2023 16:32-0400 Diastolic blood pressure 82 mm[Hg] Dr. Panda Stock Work Phone: 3(576)932-050120 [place] [address] 01-26-2023 16:32-0400 Systolic blood pressure 133 mm[Hg] Dr. Panda Stock Work Phone: 8(039)103-278720 [place] [address] 12-22-2022 13:27-0500 Body height 157.[address] Panda Stock Work Phone: 6(910)607-594820 [place] [address] 12-22-2022 13:21-0500 Body mass index (BMI) [Ratio] 42.9 kg/m2 Dr. Panda Stock Work Phone: 9(785)849-221020 [place] [address] 12-22-2022 13:21-0500 Body weight 106.[address] Panda Stock Work Phone: 9(846)773-047920 [place] [address] 12-22-2022 13:21-0500 Diastolic blood pressure 82 mm[Hg] Dr. Panda Stock Work Phone: [facility] 12-22-2022 13:21-0500 Systolic blood pressure 122 mm[Hg] Dr. Panda Stock Work Phone: [facility] 09-30-2022 08:02-0500 Diastolic blood pressure 76 mm[Hg] Dr. Panda Stock Work Phone: [facility] 09-30-2022 08:02-0500 Heart rate 71 /min Dr. aPnda Stock Work Phone: [facility] 09-30-2022 08:02-0500 Respiratory rate 15 /min Dr. Panda Stock Work Phone: [facility] 09-30-2022 08:02-0500 SaO2% (BldA) [Mass fraction] 98 % Dr. Panda Stock Work Phone: [facility] 09-30-2022 08:02-0500 Systolic blood pressure 128 mm[Hg] Dr. Panda Stock Work Phone: [facility] 09-30-2022 06:29-0500 Body height 157.[address] Panda Stock Work Phone: [facility] Work Phone: 09-30-2022 06:29-0500 Body mass index (BMI) [Ratio] 41 kg/m2 Dr. Panda Stock Work Phone: [facility] 09-30-2022 06:29-0500 Body temperature 98.8 [degF] Dr. Panda Stock Work Phone: [facility] 09-30-2022 06:29-0500 Body weight 101.[address] Panda Stock Work Phone: [facility] 09-10-2022 09:10-0500 Body mass index (BMI) [Ratio] 39.9 kg/m2 Dr. Panda Stock Work Phone: [facility] 09-10-2022 09:10-0500 Body weight 99.[address] Panda Stock Work Phone: [facility] 09-10-2022 09:10-0500 Diastolic blood pressure 78 mm[Hg] Dr. Panda Stock Work Phone: [facility] 09-10-2022 09:10-0500 Systolic blood pressure 120 mm[Hg] Dr. Panda Stock Work Phone: [facility] 08-25-2022 15:18-0400 Body height 157.[address] Panda Stock Work Phone: [facility] Work Phone: 08-25-2022 15:14-0400 Body mass index (BMI) [Ratio] 40.3 kg/m2 Dr. Panda Stock Work Phone: [facility] Work Phone: 08-25-2022 15:14-0400 Body weight 99.[address] Panda Stock Work Phone: [facility] Work Phone: 08-25-2022 15:14-0400 Diastolic blood pressure 82 mm[Hg] Dr. Panda Stcok Work Phone: [facility] Work Phone: 08-25-2022 15:14-0400 Systolic blood pressure 128 mm[Hg] Dr. Panda Stock Work Phone: [facility] Work Phone: 08-05-2022 13:51-0400 Body height 157.[address] Panda Stock Work Phone: [facility] Work Phone: 08-05-2022 13:51-0400 Body mass index (BMI) [Ratio] 40.5 kg/m2 Dr. Panda Stock Work Phone: [facility] Work Phone: 08-05-2022 13:51-0400 Body weight 100.[address] Panda Stock Work Phone: [facility] Work Phone: 08-05-2022 13:51-0400 Diastolic blood pressure 79 mm[Hg] Dr. Panda Stock Work Phone: [facility] Work Phone: 08-05-2022 13:51-0400 Heart rate 101 /min Dr. Panda Stock Work Phone: [facility] Work Phone: 08-05-2022 13:51-0400 Systolic blood pressure 122 mm[Hg] Dr. Panda Stock Work Phone: [facility] Work Phone: 07-08-2022 13:46-0400 Body height 157.[address] Panda Stock Work Phone: [facility] Work Phone: 07-08-2022 13:46-0400 Body mass index (BMI) [Ratio] 41.5 kg/m2 Dr. Panda Stock Work Phone: [facility] Work Phone: 07-08-2022 13:46-0400 Body weight 103.[address] Panda Stock Work Phone: [facility] Work Phone: 07-08-2022 13:46-0400 Diastolic blood pressure 77 mm[Hg] Dr. Panda Stock Work Phone: [facility] Work Phone: 07-08-2022 13:46-0400 Systolic blood pressure 116 mm[Hg] Dr. Panda Stock Work Phone: [facility] Work Phone: 06-09-2022 13:54-0400 Body mass index (BMI) [Ratio] 43.7 kg/m2 Dr. Panda Stock Work Phone: [facility] Work Phone: 06-09-2022 13:54-0400 Body weight 108.[address] Panda Stock Work Phone: [facility] Work Phone: 06-09-2022 13:54-0400 Diastolic blood pressure 72 mm[Hg] Dr. Panda Stock Work Phone: [facility] Work Phone: 06-09-2022 13:54-0400 Systolic blood pressure 120 mm[Hg] Dr. Panda Stock Work Phone: [facility] Work Phone: 01-24-2022 08:33-0400 Body height 157.[address] Panda Stock Work Phone: [facility] Work Phone: 01-24-2022 08:33-0400 Body mass index (BMI) [Ratio] 41.8 kg/m2 Dr. Panda Stock Work Phone: [facility] Work Phone: 01-24-2022 08:33-0400 Body weight 103.[address] Panda Stock Work Phone: [facility] Work Phone: 01-24-2022 08:33-0400 Diastolic blood pressure 76 mm[Hg] Dr. Panda Stock Work Phone: [facility] Work Phone: 01-24-2022 08:33-0400 Heart rate 77 /min Dr. Panda Stock Work Phone: [facility] Work Phone: 01-24-2022 08:33-0400 Respiratory rate 16 /min Dr. Panda Stock Work Phone: [facility] Work Phone: 01-24-2022 08:33-0400 Systolic blood pressure 120 mm[Hg] Dr. Panda Stock Work Phone: [facility] Work Phone: 01-24-2022 08:33-0400 Body height 157.[address] Panda Stock Work Phone: [facility] Work Phone: 01-24-2022 08:33-0400 Body mass index (BMI) [Ratio] 41.8 kg/m2 Dr. Panda Stock Work Phone: [facility] Work Phone: 01-24-2022 08:33-0400 Body weight 103.[address] Panda Stock Work Phone: [facility] Work Phone: 01-24-2022 08:33-0400 Diastolic blood pressure 76 mm[Hg] Dr. Panda Stock Work Phone: [facility] Work Phone: 01-24-2022 08:33-0400 Heart rate 77 /min Dr. Panda Stock Work Phone: [facility] Work Phone: 01-24-2022 08:33-0400 Respiratory rate 16 /min Dr. Panda Stock Work Phone: [facility] Work Phone: 01-24-2022 08:33-0400 Systolic blood pressure 120 mm[Hg] Dr. Panda Stock Work Phone: [facility] Work Phone: 11-21-2021 10:17-0500 Body temperature 98.4 [degF] Dr. Panda Stock Work Phone: [facility] Work Phone: 11-21-2021 10:17-0500 Diastolic blood pressure 82 mm[Hg] Dr. Panda Stock Work Phone: [facility] Work Phone: 11-21-2021 10:17-0500 Heart rate 60 /min Dr. Panda Stock Work Phone: [facility] Work Phone: 11-21-2021 10:17-0500 Respiratory rate 14 /min Dr. Panda Stock Work Phone: [facility] Work Phone: 11-21-2021 10:17-0500 SaO2% (BldA) [Mass fraction] 97 % Dr. Panda Stock Work Phone: [facility] Work Phone: 11-21-2021 10:17-0500 Systolic blood pressure 124 mm[Hg] Dr. Panda Stock Work Phone: [facility] Work Phone: 11-21-2021 06:18-0500 Body mass index (BMI) [Ratio] 40.7 kg/m2 Dr. Panda Stock Work Phone: [facility] Work Phone: 11-21-2021 06:18-0500 Body weight 101.[address] Panda Stock Work Phone: [facility] Work Phone: 11-16-2021 11:03-0500 Body temperature 98.1 [degF] Dr. Panda Stock Work Phone: [facility] Work Phone: 11-16-2021 11:03-0500 Diastolic blood pressure 67 mm[Hg] Dr. Panda Stock Work Phone: [facility] Work Phone: 11-16-2021 11:03-0500 Heart rate 67 /min Dr. Panda Stock Work Phone: [facility] Work Phone: 11-16-2021 11:03-0500 Respiratory rate 16 /min Dr. Panda Stock Work Phone: [facility] Work Phone: 11-16-2021 11:03-0500 SaO2% (BldA) [Mass fraction] 100 % Dr. Panda Stock Work Phone: [facility] Work Phone: 11-16-2021 11:03-0500 Systolic blood pressure 115 mm[Hg] Dr. Panda Stock Work Phone: [facility] Work Phone: 11-16-2021 09:19-0500 Body mass index (BMI) [Ratio] 35.6 kg/m2 Dr. Panda Stock Work Phone: [facility] Work Phone: 11-16-2021 09:19-0500 Body weight 88.[address] Panda Stock Work Phone: [facility] Work Phone: Encounters Encounter Date Encounter Type Care Provider Facility Start: 07-12-2025 ambulatory Health Risk Assessment Facility:[facility] Start: 05-30-2025 Non-patient / Non-visit Dr. Rob Olmedo MD -[facility] Start: 05-30-2025 End: 05-30-2025 ambulatory Lala Ybarra NP-C Work Phone: -[facility] Start: 05-30-2025 End: 05-30-2025 Patient encounter procedure Jannette PAINTING -[facility] Work Phone: Start: 05-30-2025 End: 05-30-2025 ambulatory Jannette PAINTING Facility:[facility] Start: 05-12-2025 End: 05-12-2025 Patient encounter procedure Jannette PAINTING -[facility] Work Phone: Start: 05-12-2025 End: 05-12-2025 ambulatory Llaa Ybarra NP-C Work Phone: -[facility] Start: 04-13-2025 End: 04-13-[address] Cora Saeed DC -[facility] Work Phone: Start: 04-13-2025 End: 04-13-2025 ambulatory Lala Ybarra SAW FILER-C Work Phone: [facility] Work Phone: Start: 04-05-2025 End: 04-05-2025 ambulatory Lala Ybarra SAW FILER-C Work Phone: [facility] Work Phone: Start: 04-05-2025 End: 04-05-2025 Patient encounter procedure [facility] Lala Ybarra SAW FILER-C -Laboratory [facility] Start: 04-05-2025 End: 04-05-2025 ambulatory [facility] Lala Ybarra Facility:[facility] Start: 03-27-2025 End: 03-27-2025 Telephone encounter Scottie Chance MD Work Phone: OB/Gynecology Start: 03-22-2025 End: 05-22-2025 Follow-up encounter Johanna Thapa MD Work Phone: OB/Gynecology Start: 03-15-2025 End: 03-15-2025 Patient encounter procedure Scottie Chance MD Work Phone: OB/Gynecology Comment on above: Pap smear of cervix with ASCUS, cannot exclude HGSIL (Primary Dx) Start: 03-15-2025 End: 03-15-2025 ambulatory SCOTTIE CHANCE Facility:[facility] Start: 03-08-2025 End: 03-08-2025 ambulatory SCOTTIE CHANCE Facility:[facility] Start: 03-08-2025 End: 03-08-2025 Patient encounter procedure Scottie Chance MD Work Phone: OB/Gynecology Comment on above: Pap smear of cervix with ASCUS, cannot exclude HGSIL (Primary Dx) Start: 03-03-2025 ambulatory Trista Lala Fa cility:[facility] Start: 01-27-2025 End: 01-27-2025 Patient encounter procedure N[facility] Gregg CNM [facility] Work Phone: Start: 01-27-2025 End: 01-27-2025 ambulatory Lala Ybarra SAW FILER-C Work Phone: [facility] Work Phone: Start: 01-27-2025 End: 01-27-2025 ambulatory Nayely Gregg Facility:[facility] Start: 01-24-2025 End: 01-24-[address] Cora Saeed [place] -[facility] Work Phone: Start: 01-24-2025 End: 01-24-2025 ambulatory Cora Saeed Facility:[facility] Start: 12-29-2024 End: 12-29-2024 Patient encounter procedure Demario Annemahad SAW FILER-C [facility] Work Phone: Start: 12-29-2024 End: 12-29-2024 ambulatory Demario Drake Facility:[facility] Start: 11-02-2024 End: 11-02-2024 Patient encounter procedure Feliciano Echavarria PA -[facility] Work Phone: Start: 11-02-2024 End: 11-02-2024 ambulatory Feilciano Echavarria [place] Start: 10-06-2024 End: 10-06-2024 Patient encounter procedure Vivienne East DO -Laboratory, [facility] Start: 10-06-2024 End: 10-06-2024 ambulatory [facility] Facility:[facility] Start: 09-10-2024 End: 09-10-2024 ambulatory [facility] [employer] [employer] Facility:[facility] Start: 07-28-2024 End: 07-28-2024 ambulatory Dyllan Moon [facility] Facility:[facility] Start: 07-19-2024 End: 07-19-2024 ambulatory [facility] Facility:[facility] Start: 02-03-2024 End: 02-03-[address] Francisco Stock Work Phone: [facility] Work Phone: Start: 02-03-2024 End: 02-03-[address] Francisco Stock Work Phone: [facility]-Laboratory Work Phone: Start: 01-29-2024 End: 01-29-[address] Francisco Stock Work Phone: [facility] Work Phone: Start: 01-05-2024 End: 01-05-[address] Francisco Stock Work Phone: [facility] Work Phone: Start: 12-30-2023 End: 12-30-[address] Francisco Stock Work Phone: [facility] Work Phone: Start: 12-29-2023 End: 12-29-[address] Francisco Stock Work Phone: [facility] Work Phone: Start: 12-24-2023 Non-patient / Non-visit Dr. Francisco Stock Work Phone: [facility] Work Phone: Start: 12-24-2023 End: 12-24-[address] Panda Stock Work Phone: [facility] Work Phone: Start: 12-23-2023 End: 12-23-[address] Panda Stock Work Phone: [facility] Work Phone: Start: 12-23-2023 End: 12-23-[address] Panda Stock Work Phone: [facility]-Radiology, [facility] Work Phone: Start: 12-17-2023 End: 12-17-[address] Panda Stock Work Phone: [facility] Work Phone: Start: 12-04-2023 End: 12-04-[address] Panda Stock Work Phone: [facility] Work Phone: Start: 11-02-2023 End: 11-02-[address] Panda Stock Work Phone: [facility] Work Phone: Start: 10-05-2023 End: 10-05-[address] Panda Stock Work Phone: [facility] Work Phone: Start: 09-29-2023 End: 09-29-[address] Panda Stock Work Phone: [facility] Work Phone: Start: 09-10-2023 End: 09-10-[address] Panda Stock Work Phone: [facility] Work Phone: Start: 09-10-2023 End: 09-10-[address] Panda Stock Work Phone: [facility] Start: 08-13-2023 End: 08-13-[address] Panda Stock Work Phone: [facility] Work Phone: Start: 07-17-2023 End: 07-17-[address] Panda Stock Work Phone: [facility] Work Phone: Start: 06-22-2023 End: 06-22-[address] Panda Stock Work Phone: [facility] Work Phone: Start: 06-19-2023 End: 06-19-[address] Panda Stock Work Phone: [facility] Work Phone: Start: 06-18-[address] Lawson Stock Work Phone: [facility] Start: 01-29-2023 End: 01-29-[address] Panda Stock Work Phone: [facility] Work Phone: Start: 01-29-2023 End: 01-29-[address] Panda Stock Work Phone: [facility], [facility] Start: 01-27-2023 End: 01-27-[address] Panda Stock Work Phone: [facility] Work Phone: Start: 01-27-2023 End: 01-27-[address] Panda Stock Work Phone: [facility]-Laboratory Start: 01-26-2023 End: 01-26-[address] Panda Stock Work Phone: [facility] Start: 12-25-2022 End: 12-25-[address] Panda Stock Work Phone: [facility] Work Phone: Start: 12-25-2022 End: 12-25-[address] Panda Stock Work Phone: [facility], [facility] Start: 12-22-2022 End: 12-22-[address] Panda Stock Work Phone: [facility] Start: 12-18-2022 End: 12-18-[address] Panda Stock Work Phone: [facility] Start: 11-18-2022 Non-patient / Non-visit Dr. Panda Stock Work Phone: [facility] Start: 11-11-2022 End: 11-11-[address] Panda Stock Work Phone: [facility], [facility] Start: 09-30-2022 End: 09-30-2022 Emergency department patient visit Dr. Panda Stock Work Phone: [facility]-Emergency Department Start: 09-23-2022 End: 09-23-[address] Panda Stock Work Phone: [facility] Work Phone: Start: 09-23-2022 End: 09-23-[address] Panda Stock Work Phone: [facility]-Laboratory Start: 09-10-2022 End: 09-10-[address] Panda Stock Work Phone: [facility] Start: 08-28-2022 End: 08-28-[address] Panda Stock Work Phone: [facility] Start: 08-25-2022 End: 08-25-[address] Panda Stock Work Phone: [facility] Start: 08-25-2022 End: 08-25-[address] Panda Stock Work Phone: [facility] Work Phone: Start: 08-25-2022 End: 08-25-[address] Panda Stock Work Phone: [facility]-Laboratory Start: 08-19-2022 End: 08-19-[address] Panda Stock Work Phone: [facility] Work Phone: Start: 08-19-2022 End: 08-19-[address] Panda Stock Work Phone: [facility] Start: 08-07-2022 End: 08-07-[address] Panda Stock Work Phone: [facility] Start: 08-05-2022 End: 08-05-[address] Panda Stock Work Phone: [facility] Start: 07-30-2022 End: 07-30-[address] Panda Stock Work Phone: [facility] Work Phone: Start: 07-30-2022 End: 07-30-[address] Panda Stock Work Phone: [facility]-Laboratory Start: 07-08-2022 End: 07-08-[address] Panda Stock Work Phone: [facility] Start: 07-08-2022 End: 07-08-[address] Panda Stock Work Phone: [facility] Work Phone: Start: 07-08-2022 End: 07-08-[address] Panda Stock Work Phone: [facility] Start: 07-08-[address] Lawson Stock Work Phone: [facility] Start: 06-09-2022 End: 06-09-[address] Panda Stock Work Phone: [facility] Start: 05-13-[address] Lawson Stock Work Phone: [facility] Start: 04-17-2022 End: 04-17-[address] Panda Stock Work Phone: [facility] Start: 04-16-2022 End: 04-16-[address] Panda Stock Work Phone: [facility] Start: 04-01-2022 End: 04-01-[address] Panda Stock Work Phone: [facility] Start: 03-06-2022 End: 03-06-[address] Panda Stock Work Phone: [facility] Start: 02-27-[address] Lawson Stock Work Phone: [facility] Start: 01-24-2022 End: 01-24-[address] Panda Stock Work Phone: [facility] Start: 01-20-2022 End: 01-20-[address] Panda Stock Work Phone: [facility] Start: 12-12-2021 End: 12-12-[address] Panda Stock Work Phone: [facility] Start: 12-02-2021 End: 12-02-[address] Panda Stock Work Phone: [facility] Start: 11-25-2021 End: 11-25-[address] Panda Stock Work Phone: [facility] Start: 11-21-2021 End: 11-21-2021 Emergency department patient visit Dr. Panda Stock Work Phone: [facility]-Emergency Department Start: 11-16-2021 End: 11-16-[address] Panda Stock Work Phone: [facility]-Medical Surgical 3 Outp Start: 11-12-2021 End: 11-12-[address] Panda Stock Work Phone: [facility] Start: 11-11-2021 End: 11-11-[address] Panda Stock Work Phone: [facility] Procedures Date Procedure Procedure Detail Performing [...] therefore, no HPV testing was performed.Performed at: [address] [id number] Director: Cortney Vargas MD, Phone: [phone] Start: 12-23-2023 X-ray of lumbosacral spine Dr. [...] DTaP,Tdap,Td Vaccine (7 - Td or Tdap) [facility] Start: 06-26-2025 Influenza vaccination Influenza Vaccine (#1) [facility] Start: 03-15-2025 End: 03-15-2025 Patient encounter procedure 03/15/2025 9:30 AM EDT Office Visit OB/Gynecology [address] [place] [address] Scottie Chance MD [address] [place] [address] Pap smear of cervix with ASCUS, cannot exclude HGSIL [R87.611] OB/Gynecology Comment on above: Pap smear of cervix with ASCUS, cannot e xclude HGSIL [R87.611] Start: 01-27-2025 Liquid based cervical cytology screening [facility] Start: 06-26-2024 Covid-19 Vaccine ( season) Covid-19 Vaccine () [facility] Start: 07-30-2022 Procedure [facility] Work Phone: Start: 02-21-2017 Screening for malignant neoplasm of cervix Cervical Cancer Screening [facility] Start: 02-21-2014 Anxiety Screening Anxiety Screening [facility] Start: 02-21-2014 Depression Screening Depression Screening [facility] Start: 02-21-2014 Hepatitis C screening Hepatitis C Screening [facility] Start: 02-21-2014 HIV screening HIV Screening [facility] COLPOSCOPY COLPOSCOPY Procedures Routine Pap smear of cervix with ASCUS, cannot exclude HGSIL Ordered: 03/08/[address] [facility] Work Phone: Comment on above: Ordered: 03/08/2025 COLPOSCOPY COLPOSCOPY Procedures Routine Pap smear of cervix with ASCUS, cannot exclude HGSIL Ordered: 03/15/[address] [facility] Work Phone: Comment on above: Ordered: 03/15/2025 Dehydroepiandrostero ne sulfate (DHEA-S) [Mass/volume] in Serum or Plasma [facility] Work Phone: Path report.final Dx Spec [facility] Patient Education [facility] Work Phone: Patient referral [facility] Work Phone: Procedure [facility] Work Phone: Prolactin [Mass/volu me] in Serum or Plasma [facility] Work Phone: Testosterone Free [M ass/volume] in Serum or Plasma [facility] Work Phone: US Heart [facility] Immunizations Immunization Date Immunization Notes Care Provider Fa [facility] 09-08-2024 influenza, seasonal, injectable, preservative free Lala Ybarra SAW FIL[facility]-C Work Phone: [facility] 09-08-2024 influenza virus vaccine, unspecified formulation Johanna Thapa MD Work Phone: [facility] 08-03-2023 influenza, injectabl e, quadrivalent, preservative free Dr. Panda Stock Work Phone: [facility] 07-25-2022 influenza, injectabl e, quadrivalent, preservative free Dr. Panda Stock Work Phone: [facility] 07-25-2022 influenza, seasonal, injectable Dr. Panda Stock Work Phone: [facility] 07-31-2021 influenza, injectabl e, quadrivalent, preservative free Dr. Panda Stock Work Phone: [facility] 07-31-2021 influenza, seasonal, injectable Dr. Panda Stock Work Phone: [facility] 07-24-2020 influenza, injectabl e, quadrivalent, preservative free Dr. Panda Stock Work Phone: [facility] 07-24-2020 influenza, seasonal, injectable Dr. Panda Stock Work Phone: [facility] 09-07-2019 influenza, injectabl e, quadrivalent, preservative free Dr. Panda Stock Work Phone: [facility] 09-07-2019 influenza, seasonal, injectable Dr. Panda Stock Work Phone: [facility] 08-25-2018 influenza, injectabl e, quadrivalent, preservative free Dr. Panda Stock Work Phone: [facility] 08-25-2018 influenza, seasonal, injectable Dr. Panda Stock Work Phone: [facility] 10-27-2017 influenza, injectabl e, quadrivalent, preservative free Dr. Panda Stock Work Phone: [facility] 10-27-2017 influenza, seasonal, injectable Dr. Panda Stock Work Phone: [facility] 04-27-2016 tetanus toxoid, reduced diphtheria toxoid, and acellular pertussis vaccine, adsorbed Dr. Panda Stock Work Phone: [facility] Payers Date Payer Category Payer Private Health Insurance [facility] [id number] 2024 [facility] BLUE CARD PPO OOS [id number] 2024 Unknown [id number] 2024 Self-pay [id number] 2024 Unknown [id number] 2015 Unknown [id number] Unknown [id number] Unknown [id number]. 462 Unknown [id number] [id number]. 462 Unknown [id number] [id number]. 462 Unknown [id number] 2.840.1.041917.3.579.2. 462 Unknown [id number] 2.840.1.662328.3.579.2. 462 Unknown [id number] 2.840.1.230736.3.579.2. 462 Unknown [id number] [id number]. 462 Unknown [id number] 2.16840.1.269127.3.579.2. 462 Unknown [id number] [id number]. 462 Unknown [id number] 2.16.840.1.099398.3.579.2. 462 Unknown [id number] 2.16.840.1.661290.3.579.2. 462 Unknown [id number] 2.16.840.1.379372.3.579.2. 462 Unknown [id number] 2.16.840.1.160055.3.579.2. 462 Unknown [id number] 2.16.840.1.574848.3.579.2. 462 Unknown [id number] 2.16.840.1.758788.3.579.2. 462 Unknown [id number] 2.16.840.1.985554.3.579.2. 462 Unknown [id number] [id number]. 462 Unknown [id number] [id number]. 462 Social History Date Type Detail Facility [facility] Work Phone: Start: 01-24-2022 End: 01-29-2024 Tobacco smoking status [facility] Unknown if ever smoked [facility] Start: 08-31-2020 None [facility] Start: 08-31-2020 With Family [facility] Start: 11-12-2021 Non-smoker [facility] Start: 1995 Sex Assigned At Female [facility] Start: 12-07-2024 End: 03-08-2025 Tobacco smoking status WAIS Never smoked tobacco (finding) [facility] Start: 02-01-2025 Sex Female (finding) [facility] Start: 03-08-2025 Tobacco use and exposure Smokeless tobacco non-user [facility] Start: 03-08-2025 Alcoholic beverage intake Current drinker of alcohol (finding) [facility] Start: 03-08-2025 History of Social function [facility] Start: 03-08-2025 Tobacco use panel [facility] National Score (1-100), lower number is lower risk 54 [facility] Start: 03-08-2025 Alcohol Comment social [facility] Start: 1995 Sex assigned at Not on file [facility] NEGATED: Highlighted row [facility] Goals Date Patient Goal Desired Activity /State Mental Status Date Assessment Result Facility 09-30-2022 Cognitive function Level Of Cons ciousness Awake;Alert;Appropriate;Follow s Commands [facility] Work Phone: 11-16-2021 Cognitive function Voice/Name;To uch/Shaking;Light Pain;Deep Pain [facility] Work Phone: Clinical Notes 11-02-2024 to [...] valve stenosis chronic May 12, 2025 2:26pm [facility] Work Phone: 1(250) 828-972305-21-2025 Instructions* Patient Instructions* Lata Coreas LPN - [...] contact your doctor's office. [facility] NoteHNO ID: [id number] Author: SCOTTIE CHANCE MD Service: ? Author [...] / SAFETY CHECKLIST Procedure to be Performed: [place] bx and ECC Sign In: A Moment [...] LEEP as lesion is small. Scottie Chance [facility]05-21-2025 History of Present illness Narrative* Scottie Chance [...] / SAFETY CHECKLIST Procedure to be Performed: [place] bx and ECC Sign In: A Moment [...] small. Scottie Chance MD documented in [facility] Note* Addendum Note - Scottie Chance MD - 03/08/2025 9:59 AM EDTAddended by: SCOTTIE CHANCE on: 03/08/2025 09:59 AM Modules accepted: Orders [facility]05-14-2025 Miscellaneous Notes* Addendum Note - Scottie Chance MD - 03/08/2025 9:59 AM EDTAddended by: SCOTTIE CHANCE on: 03/08/2025 09:59 AM Modules accepted: Orders documented in this encounterJoint [facility]-2025 NoteHNO ID: [id number] Author: SCOTTIE CHANCE MD Service: ? Author Type: Physician Type: Progress Notes Filed: 03/08/2025 09:55 Note Text: Katie Pulliam is a 30 year old female who presents for problem visit to discuss abnormal pap, miscairrage after colposcopy, abnormal HSG, another miscarriage after pap. Rec made for advanced reproductive evaluation.. 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 Extensive review of records ftft> 60 min Scottie Chance [facility]05-14-2025 History of Present illness Narrative* Scottie Chance MD - 03/08/2025 8:43 AM EDT Katie Pulliam is a 30 year old female who presents for problem visit to discuss abnormal pap, miscairrage after colposcopy, abnormal HSG, another miscarriage after pap. Rec made for advance\d reproductive evaluation.. 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 Extensive review of records ftft> 60 min Scottie Chance MD documented in [facility] encounterJoint [facility] Evaluation note* Diagnosis Onset Date Resolution [...] valve stenosis chronic May 12, 2025 2:26pm [facility] Work Phone: 1(464) 822-257203-06-2025 Evaluation note* Diagnosis Onset Date Resolution Status [...] severe dysplasia acute January 27, 2025 3:29pm [facility] Work Phone: 1(424) 100-668103-06-2025 Evaluation note* Diagnosis Onset Date Resolution Status [...] of thoracic region acute April 13 10:52am [facility] Work Phone: [phone]) [phone] Evaluation note* Diagnosis Onset Date Resolution Status [...] severe dysplasia acute January 27, 2025 3:29pm [facility] Work Phone: Chief complaint+Reason for visit [...] of heart disease Congenital pulmonic valve stenosis [facility] Work Phone: Evaluation note* Diagnosis Onset [...] disease acute Congenital pulmonic valve stenosis chronic [facility] Work Phone: Evaluation note* Diagnosis Onset [...] and somatic dysfunction of thoracic region acute [facility] Work Phone: Evaluation note* Diagnosis Onset [...] for routine gynecological examination noneactive Obesity acute [facility] Work Phone: evaluation note* Diagnosis Onset Date Resolution Status BMI 40.0-44.9, adult acute Encounter for routine gynecological examination noneactive Obesity acute Obesity acute Segmental and somatic dysfunction of cervical region resolved Segmental and somatic dysfunction of lumbar region resolved Segmental and somatic dysfunction of pelvic region resolved Segmental and somatic dysfunction of thoracic region resolved [facility] Work Phone: Evaluation note* Diagnosis Onset Date Resolution Status BMI 40.0-44.9, adult acute Encounter for routine gynecological examination noneactive Obesity acute Obesity acute Segmental and somatic dysfunction of cervical region resolved Segmental and somatic dysfunction of lumbar region resolved Segmental and somatic dysfunction of pelvic region resolved Segmental and somatic dysfunction of thoracic region resolved Postcoital bleeding acute Cervicitis noneactive [facility] Work Phone: Evaluation note* Diagnosis Onset [...] resolved Fertility testing acute Postcoital bleeding acute [facility] Work Phone: Evaluation note* Diagnosis Onset [...] with irregular cycle acute Pelvic pain acute [facility] Work Phone: Evaluation note* Diagnosis Onset [...] cycle acute Pelvic pain acute Thyromegaly acute [facility] Work Phone: Evaluation note* Diagnosis Onset [...] cycle acute Obesity acute Pelvic pain acute [facility] Work Phone: Evaluation note* Diagnosis Onset [...] and somatic dysfunction of thoracic region acute [facility] Work Phone: Evaluation note* Diagnosis Onset [...] 38.0-38.9,adult acute Calf pain acute Obesity acute [facility] Work Phone: Evaluation note* Diagnosis Pap smear of cervix with ASCUS, cannot exclude HGSIL- Primary Papanicolaou smear of cervix with atypical squamous cells cannot exclude high grade squamous intraepithelial lesion (ASC-H) [facility] Diagnosis Pap smear of cervix with ASCUS, cannot exclude HGSIL- Primary Papanicolaou smear of cervix with atypical squamous cells cannot exclude high grade squamous intraepithelial lesion (ASC-H) [facility] Diagnosis Female infertility- Primary Female infertility of unspecified origin [facility] Diagnosis Pap smear of cervix with ASCUS, cannot exclude HGSIL- Primary Papanicolaou smear of cervix with atypical squamous cells cannot exclude high grade squamous intraepithelial lesion (ASC-H) [facility] for [facility]: Family History No Family [...] Will No November 21 8:42am Power of Information Services Assistant No November 21, 2021 8:42am Advance Directive Response Recorded Date/ Time Living Will No September 30 6:29am Power of Information Services Assistant No September 30, 2022 6:29am Advance Directive Response Recorded Date/ Time Living Will No September 30 7:29am Power of Information Services Assistant No September 30, 2022 7:29am Advance Directive Response Recorded Date/ Time Living Will No March 16, 2023 1 0:26am Power of Information Services Assistant No March 16, 2023 10:26am Advance Directive Response Recorded Date/ Time Living Will No March 16, 2023 1 1:26am Power of Information Services Assistant No March 16, 2023 11:26am Advance Directive Response Recorded Date/ Time Living Will No June 16 10:04am Do you have a Healthcare Power of Information Services Assistant? 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 INT'S & BOX weight / bp check LBP/UPPER BACK ABN MENSIS Reason for Visit BMI 40.0-44.9, adult Encounter for routine gynecological examination Obesity Obesity Segmental and somatic dysfunction of cervical region Segmental and somatic dysfunction of lumbar region Segmental and somatic dysfunction of pelvic region Segmental and somatic dysfunction of thoracic region 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 INT'S & BOX [...] region Postcoital bleeding Cervicitis 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 INT'S & BOX [...] THROAT, COUGH, HEADACHE October 7:02am 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/ [employer] November 02, 2024 7: 12am 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/ [employer] December 29, 2024 12:3 4pm SORE THROAT, [...] 2025 3:29pm Chief Complaint Admit Date EMPLOYEE [employer]/ [employer] December 29, 2024 12:3 4pm SORE THROAT, [...] Provider, Refe rring Provider Active Cari Holman SAW FILER, SAW FILER-C Attending Provider Active Team Status: Active Member [...] MD Primary Care Provider Activ e Cari Arcata SAW FILER, SAW FILER-C Attending Provider, Referring Provider Active Team Status: [...] Primary Care Provider Activ e Cari Holman SAW FILER, SAW FILER-C Attending Provider Active Team Status: Inactive Member [...] Active Member Role Status Dates Dr. Francisco Stcok MD Family Provider Active Dr. Francisco Stock [...] Active Member Role Status Dates Lala MARTE, SAW FILER-C Primary Care Provider Activ e Team Status: Inactive Member Role Status Dates Lala MARTE, SAW FILER-C Primary Care Provider Activ e Start: October 06, 2024 End: October 06, 2024 Vivienne MARTE, DO Attending Provider Active Start: October 06, 2024 End: October 06, 2024 Vivienne MARTE, DO Referring Provider Active Start: October 06, 2024 End: October 06, 2024 Team Status: Inactive Member Role Status Dates Lala DENTONC, SAW FILER-C Primary Care Provider Activ e Start: November 02, 2024 End: November 02, 2024 Lala DENTONC, SAW FILER-C Referring Provider Active Start: November 02, 2024 End: November 02, 2024 Feliciano Echavarria PA, PA Attending Provider Active Start: November 02, 2024 End: November 02, 2024 Team Status: Inactive Member Role Status Dates Lala MARTE, SAW FILER-C Primary Care Provider Activ e Start: December 29, 2024 End: December 29, 2024 Lala DENTONAme, SAW FILER-C Referring Provider Active Start: December 29, 2024 End: December 29, 2024 Demario Drkae NP-C Attending Provider Active Star t: December 29, 2024 End: December 29, 2024 Team Status: Inactive Member Role Status Dates Lala DENTONAme, SAW FILER-C Primary Care Provider Activ e Start: January 24, 2025 End: January 24, 2025 Lala DENTONAme, SAW FILER-C Referring Provider Active Start: January 24, 2025 End: January 24, 2025 Dr. Cora Saeed DC Attending Provider Active S tart: January 24, 2025 End: January 24, 2025 Team Status: Inactive Member Role Status Dates Dr. Francisco Stock MD Referring Provider Active Start: January 27, 2025 End: January 27, 2025 Lala DENTONAme, SAW FILER-C Primary Care Provider Activ e Start: January 27, 2025 End: January 27, 2025 Nayely Gregg CNM Attending Provider Active S tart: January 27, 2025 End: January 27, 2025 Team Status: Inactive Member Role Status Dates Lala DENTONAme, SAW FILER-C Primary Care Provider Activ e Start: January 27, 2025 End: January 27, 2025 Nayely Gregg CNM Attending Provider Active S tart: January 27, 2025 End: January 27, 2025 Nayely Gregg CNM Referring Provider Active S tart: January 27, 2025 End: January 27, 2025 Terrazzo Layer Relationship Specialty Start Date End Date Praneeth Quevedo [address] [place], [place] [id number] Referring Orthopedics 08/24/19 Terrazzo Layer Relationship Specialty Start Date End Date Praneeth Quevedo [address] [place] [address] Referring Orthopedics 08/24/19 Terrazzo Layer Relationship Specialty Start Date End Date Praneeth Quevedo [address] [place], [place] [id number] Referring Orthopedics 08/24/19 Team Status: Inactive Member Role Status Dates Lala DENTONC, SAW FILER-C Primary Care Provider Activ e Start: April 05, 2025 End: April 05, 2025 Lala DENTONC, SAW FILER-C Attending Provider Active Start: April 05, 2025 End: April 05, 2025 Team Status: Inactive Member Role Status Dates Lala DENTONC, SAW FILER-C Primary Care Provider Activ e Start: April 13, 2025 End: April 13, 2025 Lala DENTONC, SAW FILER-C Referring Provider Active Start: April 13, 2025 End: April 13, 2025 Dr. Cora Saeed DC Attending Provider Active S tart: April 13, 2025 End: April 13, 2025 Team Status: Active Member Role/Relationship Status Dates Lala DENTONC, SAW FILER-C Primary Care Provider Activ e Team Status: Inactive Member Role/Relationship Status Dates Lala DENTONC, SAW FILER-C Primary Care Provider Activ e Start: January 24, 2025 End: January 24, 2025 Lala Tate BERTINC, SAW FILER-C Referring Provider Active Start: January 24, 2025 End: January 24, 2025 Dr. Cora Saeed DC Attending Provider Active S tart: January 24, 2025 End: January 24, 2025 Team Status: Inactive Member Role/Relationship Status Dates Dr. Francisco Stock MD Referring Provider Active Start: January 27, 2025 End: January 27, 2025 Lala Tate BERTINC, SAW FILER-C Primary Care Provider Activ e Start: January 27, 2025 End: January 27, 2025 Nayely Gregg CNM Attending Provider Active S tart: January 27, 2025 End: January 27, 2025 Team Status: Inactive Member Role/Relationship Status Dates Lala DENTONC, SAW FILER-C Primary Care Provider Activ e Start: January 27, 2025 End: January 27, 2025 Nayely Gregg CNM Attending Provider Active S tart: January 27, 2025 End: January 27, 2025 Nayely Gregg CNM Referring Provider Active S tart: January 27, 2025 End: January 27, 2025 Team Status: Inactive Member Role/Relationship Status Dates Lala Tate VSC, SAW FILER-C Primary Care Provider Activ e Start: April 05, 2025 End: April 05, 2025 Lalarene Ybarra VSC, SAW FILER-C Attending Provider Active Start: April 05, 2025 End: April 05, 2025 Team Status: Inactive Member Role/Relationship Status Dates Lala DENTONC, SAW FILER-C Primary Care Provider Activ e Start: April 13, 2025 End: April 13, 2025 Lala DENTONC, SAW FILER-C Referring Provider Active Start: April 13, 2025 End: April 13, 2025 Dr. Cora Saeed DC Attending Provider Active S tart: April 13, 2025 End: April 13, 2025 Team Status: Inactive Member Role/Relationship Status Dates Lala DENTONC, SAW FILER-C Primary Care Provider Activ e Start: May 12, 2025 End: May 12, 2025 Lalarene DENTONC, SAW FILER-C Referring Provider Active Start: May 12, 2025 End: May 12, 2025 Jannette PAINTING, PA Attending Provider Active Start: May 12, 2025 End: May 12, 2025 Terrazzo Layer Relationship Specialty Start Date End Date Praneeth Quevedo [address] [place] [address] Referring Orthopedics 08/24/19 Team Status: Inactive Member Role/Relationship Status Dates Lala DENTONC, SAW FILER-C Primary Care Provider Activ e Start: April 05, 2025 End: April 05, 2025 Lalarene DENTONAme, SAW FILER-C Attending Provider Active Start: April 05, 2025 End: April 05, 2025 Team Status: Inactive Member Role/Relationship Status Dates Lala DENTONC, SAW FILER-C Primary Care Provider Activ e Start: April 13, 2025 End: April 13, 2025 Lala Tate MARTE, SAW FILER-C Referring Provider Active Start: April 13, 2025 End: April 13, 2025 Dr. Cora Saeed DC Attending Provider Active S tart: April 13, 2025 End: April 13, 2025 Team Status: Inactive Member Role/Relationship Status Dates Lalarene Ybarra VSC, SAW FILER-C Primary Care Provider Activ e Start: May 12, 2025 End: May 12, 2025 Lala DENTONC, SAW FILER-C Referring Provider Active Start: May 12, 2025 End: May 12, 2025 MERT Boothe Attending Provider Active Start: May 12, 2025 End: May 12, 2025 Team Status: Inactive Member Role/Relationship Status Dates Lala DENTONC, SAW FILER-C Primary Care Provider Activ e Start: May 30, 2025 End: May 30, 2025 MERT Boothe Attending Provider Active Start: May 30, 2025 End: May 30, 2025 MERT Boothe Referring Provider Active Start: May 30, 2025 End: May 30, 2025 Team Status: Active Member Role/Relationship Status Dates Lala Ybarra VSC, SAW FILER-C Primary Care Provider Activ e Start: May [...] or prosecute any alcohol or drug abuse patient.[facility] the event this information is protected by the Federal Confidentiality of Alcohol and Drug Abuse Patient Records regulations: The Federal rules restrict any use of the information to criminally investigate or prosecute any alcohol or drug abuse patient.[facility] the event this information is protected by the Federal Confidentiality of Alcohol and Drug Abuse Patient Records regulations: The Federal rules restrict any use of the information to criminally investigate or prosecute any alcohol or drug abuse patient.[facility] the event this information is protected by the Federal Confidentiality of Alcohol and Drug Abuse Patient Records regulations: The Federal rules restrict any use of the information to criminally investigate or prosecute any alcohol or drug abuse patient.[facility] Reason for Visit (unrecogniz ed section and content) Reason Comments Consult Reason Comments Colposcopy Specialty Diagnoses / Procedures Referred By Mason rao Referred To Contact [facility] Diagnoses Pap smear of cervix with ASCUS, cannot exclude HGSIL Procedures COLPOSCOPY COLPOSCOPY CERVIX BX CERVIX & ENDOCRV [facility]DAVIDGE Scottie Chance MD [address] [place] [address] Phone: tel: fax: [facility] [place] [address] [place] [address] Referral ID Status Reason Start Date Expiration Date V isits Requested Visits Authorized [id number] Closed Auto-Generate d Referral 03/08/2025 03/08/2026 1 1 INFORMATION SOURCE (unrecogn ized section and content) DATE CREATED AUTHOR 03/27/2025 [facility] DATE CREATED AUTHOR 'S ORGANIZ ATION 07/13/2025 [facility] FOR RECORDS PERTAINING TO PATIENTS WHO ARE [...] PRIMARY CLINICAL RECORDS. [facility] [place] [facility]. provides no warranty or guarantee of the accuracy or completeness of information in this document.
[2025-08-16 06:51] LABS: hCG Titer Quant., Serum 48 mIU/mL (<9 non-preg)
== END | disposition home or self-care (01) ==
LOC: LAB 04:09
DX: Z32.01 Encounter for pregnancy test, result positive (principal)
CPT/HCPCS: 84702

== ENCOUNTER → 2025-08-18 | Outpatient (CLI) | payer OTHER, SELFPAY ==
--- OUTSIDE RECORDS SUMMARY | 2025-08-18 05:30 | XMS RPT_ITS | CCD ---
Author Organization [facility] Care Team Providers Care Ladies' Locker Room Attendant Name Role Phone Dr. Panda Stock Primary Care Provider [phone] Dr. Panda Stock Referring Provider Dr. Hi Silverio Attending Provider Dr. Cora Saeed Attending Provider [phone] [facility] WIRE FRAME DIPPER, WIRE FRAME DIPPER-Ame Cat Attending Provider Dr. Panda Stock Primary Care Provider [phone] Dr. Panda Stock Referring Provider Dr. Cora Saeed Attending Provider [phone] Dr. Panda Stock Primary Care Provider [phone] Dr. Panda Stock Referring Provider Dr. Cora Saeed Attending Provider [phone] [place] WIRE FRAME DIPPERUZIEL Attending Provider Dr. Panda Stock Primary Care Provider [phone] Dr. Panda Stock Referring Provider Dr. Cora Saeed Attending Provider [phone] Dr. Panda Stock Primary Care Provider [phone] Dr. Panda Stock Referring Provider River WIRE FRAME DIPPERUZIEL Attending Provider [phone] Dr. Cora Saeed Attending Provider [phone] Dr. Panda Stock Primary Care Provider [phone] Dr. Panda Stock Referring Provider River WIRE FRAME DIPPER, WIRE FRAME DIPPER-C aCri Attending Provider [phone] Dr. Cintia Mcgee Attending Provider [phone] Dr. Cintia Mcgee Other Provider Dr. Cora Saeed Attending Provider [phone] Dr. Panda Stokc Primary Care Provider Dr. Cintia Mcgee Attending Provider [phone] Dr. Cintia Mcgee Other Provider [phone] Dr. Panda Stock Referring Provider Dr. Cora Saeed Attending Provider [phone] [place] WIRE FRAME DIPPER, WIRE FRAME DIPPER-C Cari Attending Provider [phone] Dr. Panda [...] Care Provider Dr. Francisco Stock Referring Provider Tate WIRE FRAME DIPPER-CLala Primary Care Provider Vivienne East DO Attending Provider Vivienne East DO Referring Provider Tate WIRE FRAME DIPPER-C, Lala Referring Provider Feliciano Ge Attending Provider Demario Martines Attending Provider Dosjudith LARES, Dr. Shepherd Attending Provider [phone] Francisco Stock MD Referring Provider Nayely Gregg CNM Attending Provider [phone] Nayely Gregg CNM Referring Provider [phone] Sae Praneeth Tuyet Unavailable SCOTTIE CHANCE Referring Unavailable SCOTTIE CHANCE Attending Unavailable SCOTTIE CHANCE Attending Unavailable [place] WIRE FRAME DIPPER-C, Lala Primary Care Provider Tate WIRE FRAME DIPPER-C, Lala Referring Provider Tate WIRE FRAME DIPPER-C, Lala Attending Provider Tate WIRE FRAME DIPPER-C, Lala Primary Care Provider Tate WIRE FRAME DIPPER-C, Lala Referring Provider Jannette Christensen Attending Provider Tate WIRE FRAME DIPPER-C, Lala Primary Care Provider Tate WIRE FRAME DIPPER-C, Lala Referring Provider Darlin LARES, Dr. Shepherd Attending Provider [phone] Jannette Christensen Referring Provider [phone] Shara PERSAUD, Dr. Rivas Attending Provider Tate VSC, Lala Primary Care Unavailabl e Tate VSC, Lala Referring Unavailabl e Cora Saeed Attending Unavailable Tate VSC, Lala Primary Care Unavailabl e Tate VSC, Lala Referring Unavailabl e Demario Drake Attending Unavailable Tate VSC, Lala Primary Care Unavailabl e Tate VSC, Lala Referring Unavailabl e Feliciano Ge Attending Unavailable Tate VSC, Lala Primary Care Unavailabl e Tate VSC, Lala Referring Unavailabl e Cora Saeed Attending Unavailable Tate VSC, Lala Primary Care Unavailabl e aNyely Gregg Attending Unavailable Francisco Stock Referring Unavailable Tate VS, [facility] Primary Care Unavailabl e Jannette Christensen Attending Unavail able Tate VSC, [facility] Referring Unavailabl e Tate VSC, [facility] Primary Care Unavailabl e Rob Olmedo Attending Unavailable Beam VSC, [facility] Primary Care Unavailable Beam VSC, [place] Attending Unavailable Beam VSC, [place] Primary Care Unavailable Assessment, Health Risk Attending Unavaila ble Tate VSC, [facility] Primary Care Unavailabl e Tate VSC, Lala Attending Unavailabl e Tate VSC, [facility] Primary Care Unavailabl e Nayely Gregg Referring Unavailable Nayely Gregg Attending Unavailable Tate VS, [facility] Primary Care Unavailabl e Cruzito VSC, Vivienne Referring Unavailable Cruzito VSC, Vivienne Attending Unavailable Tate VSC, [facility] Primary Care Unavailabl e Cruzito VSC, Vivienne Referring Unavailable Cruzito VSC, Vivienne Attending Unavailable [facility], [facility] Primary Care Unavailabl e Jannette Christensen Referring Unavail able Jannette Christensen Attending Unavail able Tate VSC, [facility] Primary Care Unavailabl e Tate VSC, Lala Referring Unavailabl e Trista Lala Attending Unavailabl e Tate VSC, [facility] Primary Care Unavailabl e Tate VSC, [facility] Referring Unavailabl e Feliciano Ge Attending Unavailable [facility], [facility] Care Unavailabl e Tate VSC, [facility] Referring Unavailabl e Demario Drake Attending Unavailable Allergies Allergy Classification Reported Allergen(s) Allergy Type Date of Onset Reaction(s) Facility (20 sources) Adhesive Tape; Translations: [adhesive tape] Allergy to substance 2 abrasion [facility] (20 sources) HYDROcodone; Translations: [HYDROCODONE] Drug Allergy 8 Other: See Comments [facility] (9 sources) flu vaccine Allergy to substance 2 Swelling [facility] (3 sources) Norethindrone Drug Allergy [facility] (8 sources) Influenza Vaccines Allergy to substance 3 [facility] (8 sources) Norethindrone Drug Allergy 3 [facility] (4 sources) ADHESIVE TAPE-SILICONES; Translations: [ADHESIVE TAPE-SILICONES] Propensity to adverse reactions to drug (disorder) 5 Hives [facility] Repository (1 source) HYDROcodone Drug Allergy 5 [facility] Repository (1 source) Norethindrone Drug Allergy 5 [facility] Repository (1 source) Influenza Virus Vaccines Drug allergy (disorder) 5 [facility] Repository Medications Current Medications Medication Drug Class(es) Dates Sig (Normalized) Sig (Original) [id number] 200 actuat albuterol 0.09 mg/actuat metered dose [...] tablet Discontinued 10 mg PO DAILY 10 3 December 07, 2019 1:00am May 22, 2020 11:04am Multivitamin (Daily Multi-Vitamin) tablet (5 sources) Start: 06-16-2024 Multivitamin (Daily Multi-Vitamin) tablet Active 1 {tbl} PO DAILY June 16, 2024 12:00am nabumetone 750 mg oral tablet (4 sources) Nonsteroidal Anti-inflammatory Drug take 1 tablet by mouth twice daily nabumetone (RELAFEN) 750 mg tablet Take 750 mg by mouth twice daily. Active Leigh (Nk) (2 sources) Start: 09-10-2022 Leigh (Nk) Active September 10, 2022 12:00am phentermine [...] tablet Discontinued 18.75 mg PO daily 15 December 29, 2023 5:27pm March 25, 2024 11:03am BMI 38 Start: 06-09-2022 End: 09-10-2022 take 1 capsule by mouth once daily 30 minutes after breakfast Phentermine (Adipex-P) 37.5 mg capsule Discontinued 37.5 mg PO DAILY 30 August 05, 2022 4:08pm September 10, 2022 [...] tablet Discontinued 1 {tbl} PO Q12H 19 March 14, 2021 12:00am May 09, 2021 [...] 07, 2019 2:02pm take 1 tablet by once daily buPROPion XL (WELLBUTRIN XL) 300 mg 24 hr tablet Take 300 mg by mouth once daily. Active cephalexin 500 mg oral capsule (8 sources) Cephalosporin Antibacterial Start: 08-13-2023 End: 08-23-2023 take 1 capsule by mouth every twelve hours Cephalexin 500 mg capsule Discontinued 500 mg PO Q12H 20 10 August 13, 2023 12:00am August 22, 2023 [...] 2021 12:00am June 09, 2022 1:53pm levonorgestrel 0.430436 mg/hr intrauterine system (20 sources) Progestin, Progestin-containi [...] release(DR/EC) Discontinued 20 mg PO DAILY 14 1 March 19, 2023 12:00am March 25, 2024 [...] and frequent menstruation with irregular cycle] Onset: 11-08-19 25 12-22-2022 Chronic Comment on above: ocp switched to diff erent pill. 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, unspecified] Onset: 01-27-2025 07-04-2024 Episodic Comment on above: LEEP: HPV changes no piyush, repeat pap in 6 months(11/2024) Other bone disease and musculoskeletal deformities (20 sources) Segmental and somatic dysfunction of cervical region; Translations: [Nonallopathic lesions, cervical region] Onset: 04-13-2025 Episodic Other bone disease and musculoskeletal deformities (20 sources) Segmental and somatic dysfunction of lumbar region; Translations: [Nonallopathic lesions, lumbar region] Onset: 04-13-2025 Episodic Other bone disease and musculoskeletal deformities (20 sources) Segmental and somatic dysfunction of pelvic region; Translations: [Nonallopathic lesions, pelvic region] Onset: 04-13-2025 Episodic Other bone disease and musculoskeletal deformities (20 sources) Segmental and somatic dysfunction of thoracic region; Translations: [Nonallopathic lesions, thoracic region] Onset: 04-13-2025 Episodic Other non-traumatic joint disorders (1 source) [...] Test Name Value Interpretation Reference Range Facility hCG Titer Quant., Serumon HCG QUANT. 48 mIU/mL High <9 non-preg [facility] Comment on above: Result Comment: Gest ational Age 0.2-1 Week: 5-50 mIU/mL 1-2 Weeks: 50-500 mIU/mL 2-3 Weeks: 100-5000 mIU/mL 3-4 Weeks: 500-10,000 mIU/mL 4-5 Weeks:1000-50,000 mIU/mL 5-6 Weeks: 10,000-100,000 mIU/mL 6-8 Weeks: 15,000-200,000 mIU/mL 2-3 Months:10,000-100,000 mIU/mL Performed By: #### L 700.8000 #### [facility] [address] [place], [place], [id number] CBC, Employeeon 07-12-2025 Absolute Lymph 1.82 X10 3/uL Normal 0.83-4.51 [facility] Comment on above: Performed By: #### L 505.5000, L501.9985, L501.9520, L100.0100, L506.0400, L3300.3500, L500.4100, L500.4050 #### [facility] [address] [place], [place], [address] Absolute Neut 4.2 X10 3/uL Normal 2.0-7.7 [facility] Comment on above: Performed By: #### L 505.5000, L501.9985, L501.9520, L100.0100, L506.0400, L3300.3500, L500.4100, L500.4050 #### [facility] [address] [place], [address] Basophils/100 WBC (Bld) 0.5 % Normal 0-1 [facility] Comment on above: Performed By: #### L 505.5000, L501.9985, L501.9520, L100.0100, L506.0400, L3300.3500, L500.4100, L500.4050 #### [facility] [address] [place], [address] Eosinophils/100 WBC (Bld) 1.2 % Normal 0-5 [facility] Comment on above: Performed By: #### L 505.5000, L501.9985, L501.9520, L100.0100, L506.0400, L3300.3500, L500.4100, L500.4050 #### [facility] [address] [place], [address] Erythrocyte distribution width (RBC) [Ratio] 13.6 % Normal 11.6-14.6 [facility] Comment on above: Performed By: #### L 505.5000, L501.9985, L501.9520, L100.0100, L506.0400, L3300.3500, L500.4100, L500.4050 #### [facility] [address] [place], [address] Hematocrit (Bld) [Volume fraction] 40.8 % Normal 37-47 [facility] Comment on above: Performed By: #### L 505.5000, L501.9985, L501.9520, L100.0100, L506.0400, L3300.3500, L500.4100, L500.4050 #### [facility] [address] [place], [address] Hemoglobin (Bld) [Mass/Vol] 13.6 g/dL Normal 12.0-15.0 [facility] Comment on above: Performed By: #### L 505.5000, L501.9985, L501.9520, L100.0100, L506.0400, L3300.3500, L500.4100, L500.4050 #### [facility] [address] [place], [address] Lymphocytes/100 WBC (Bld) 27.7 % Normal 19-41 [facility] Comment on above: Performed By: #### L 505.5000, L501.9985, L501.9520, L100.0100, L506.0400, L3300.3500, L500.4100, L500.4050 #### [facility] [address] [place], [address] MCH (RBC) [Entitic mass] 28.8 pg Normal 27.0-32.0 [facility] Comment on above: Performed By: #### L 505.5000, L501.9985, L501.9520, L100.0100, L506.0400, L3300.3500, L500.4100, L500.4050 #### [facility] [address] [place], [address] MCHC (RBC) [Mass/Vol] 33.3 g/dL Normal 32-36 [facility] Comment on above: Performed By: #### L 505.5000, L501.9985, L501.9520, L100.0100, L506.0400, L3300.3500, L500.4100, L500.4050 #### [facility] [address] [place], [address] MCV (RBC) [Entitic vol] 86.4 fL Normal 81-99 [facility] Comment on above: Performed By: #### L 505.5000, L501.9985, L501.9520, L100.0100, L506.0400, L3300.3500, L500.4100, L500.4050 #### [facility] [address] [place], [address] Monocytes/100 WBC (Bld) 7.0 % Normal 0-10 [facility] Comment on above: Performed By: #### L 505.5000, L501.9985, L501.9520, L100.0100, L506.0400, L3300.3500, L500.4100, L500.4050 #### [facility] [address] [place], [address] Neutrophils/100 WBC (Bld) 63.3 % Normal 47-70 [facility] Comment on above: Performed By: #### L 505.5000, L501.9985, L501.9520, L100.0100, L506.0400, L3300.3500, L500.4100, L500.4050 #### [facility] [address] [place], [address] NRBC # 0.00 10 3/uL Normal 0-5 [facility] Comment on above: Performed By: #### L 505.5000, L501.9985, L501.9520, L100.0100, L506.0400, L3300.3500, L500.4100, L500.4050 #### [facility] [address] [place], [address] Nucleated RBC (Bld) [#/Vol] 0 10*3/uL Normal 0-5 [facility] Comment on above: Performed By: #### L 505.5000, L501.9985, L501.9520, L100.0100, L506.0400, L3300.3500, L500.4100, L500.4050 #### [facility] [address] [place], [address] Platelet mean volume (Bld) [Entitic vol] 12.7 fL High 6.2-12.0 [facility] Comment on above: Performed By: #### L 505.5000, L501.9985, L501.9520, L100.0100, L506.0400, L3300.3500, L500.4100, L500.4050 #### [facility] [address] [place], [address] Platelets (Bld) [#/Vol] 304 10*3/uL Normal 150-450 [facility] Comment on above: Performed By: #### L 505.5000, L501.9985, L501.9520, L100.0100, L506.0400, L3300.3500, L500.4100, L500.4050 #### [facility] [address] [place], [address] RBC (Bld) [#/Vol] 4.72 10*6/uL Normal 4.2-5.4 [facility] Comment on above: Performed By: #### L 505.5000, L501.9985, L501.9520, L100.0100, L506.0400, L3300.3500, L500.4100, L500.4050 #### [facility] [address] [place], [address] RDW SD 42.3 fl Normal 35.1-43.9 [facility] Comment on above: Performed By: #### L 505.5000, L501.9985, L501.9520, L100.0100, L506.0400, L3300.3500, L500.4100, L500.4050 #### [facility] [address] [place], [address] WBC (Bld) [#/Vol] 6.6 10*3/uL Normal 4.4-11.0 [facility] Comment on above: Performed By: #### L 505.5000, L501.9985, L501.9520, L100.0100, L506.0400, L3300.3500, L500.4100, L500.4050 #### [facility] [address] [place], [address] Employee Profileon LDH 216 U/L Normal 84-246 [facility] Comment on above: Performed By: #### L 505.5000, L501.9985, L501.9520, L100.0100, L506.0400, L3300.3500, L500.4100, L500.4050 #### [facility] [address] [place], [address] Phosphate [Mass/Vol] 3.4 mg/dL Normal 2.7-4.5 [facility] Comment on above: Performed By: #### L 505.5000, L501.9985, L501.9520, L100.0100, L506.0400, L3300.3500, L500.4100, L500.4050 #### [facility] [address] [place], [address] URIC 4.7 mg/dL Normal 2.6-6.0 [facility] Comment on above: Result Comment: The drugs N-Acetylcysteine and Metamizole may falsely depress this assay. Performed By: #### L 505.5000, L501.9985, L501.9520, L100.0100, L506.0400, L3300.3500, L500.4100, L500.4050 #### [facility] [address] [place], [address] Urinalysis, Employeeon 07-12 BILIRUBIN URINE Negative Normal Negative [facility] Comment on above: Order Comment: CLEAN CATCH Performed By: #### L 505.5000, L501.9985, L501.9520, L100.0100, L506.0400, L3300.3500, L500.4100, L500.4050 #### [facility] [address] [place], [address] Clarity (U) Cloudy Normal Clear [facility] Comment on above: Order Comment: CLEAN CATCH Performed By: #### L 505.5000, L501.9985, L501.9520, L100.0100, L506.0400, L3300.3500, L500.4100, L500.4050 #### [facility] [address] [place], [address] Color (U) Yellow Normal Yellow [facility] Comment on above: Order Comment: CLEAN CATCH Performed By: #### L 505.5000, L501.9985, L501.9520, L100.0100, L506.0400, L3300.3500, L500.4100, L500.4050 #### [facility] [address] [place], [address] GLUCOSE, UR Normal Normal Normal [facility] Comment on above: Order Comment: CLEAN CATCH Performed By: #### L 505.5000, L501.9985, L501.9520, L100.0100, L506.0400, L3300.3500, L500.4100, L500.4050 #### [facility] [address] [place], [address] KETONE UR Negative Normal Negative [facility] Comment on above: Order Comment: CLEAN CATCH Performed By: #### L 505.5000, L501.9985, L501.9520, L100.0100, L506.0400, L3300.3500, L500.4100, L500.4050 #### [facility] [address] [place], [address] LEUK ESTERASE 100 /ul Abnormal Negative [facility] Comment on above: Order Comment: CLEAN CATCH Performed By: #### L 505.5000, L501.9985, L501.9520, L100.0100, L506.0400, L3300.3500, L500.4100, L500.4050 #### [facility] [address] [place], [place], [address] Nitrite Ql (U) Negative Normal Negative [facility] Comment on above: Order Comment: CLEAN CATCH Performed By: #### L 505.5000, L501.9985, L501.9520, L100.0100, L506.0400, L3300.3500, L500.4100, L500.4050 #### [facility] [address] [place], [place], [address] OCCULT BLOOD-UR Negative Normal Negative [facility] Comment on above: Order Comment: CLEAN CATCH Performed By: #### L 505.5000, L501.9985, L501.9520, L100.0100, L506.0400, L3300.3500, L500.4100, L500.4050 #### [facility] [address] [place], [place], [id number] pH UR 6.0 Normal 5.0 - 8.0 [facility] Comment on above: Order Comment: CLEAN CATCH Performed By: #### L 505.5000, L501.9985, L501.9520, L100.0100, L506.0400, L3300.3500, L500.4100, L500.4050 #### [facility] [address] [place], [place], [address] PROT DIPSTX 30 mg/dl Abnormal Negative [facility] Comment on above: Order Comment: CLEAN CATCH Performed By: #### L 505.5000, L501.9985, L501.9520, L100.0100, L506.0400, L3300.3500, L500.4100, L500.4050 #### [facility] [address] [place], [place], [address] SP.GR. DIPSTX 1.020 Normal 1.002-1.03 0 [facility] Comment on above: Order Comment: CLEAN CATCH Performed By: #### L 505.5000, L501.9985, L501.9520, L100.0100, L506.0400, L3300.3500, L500.4100, L500.4050 #### [facility] [address] [place], [place], [address] UROBILI Normal Normal Normal [facility] Comment on above: Order Comment: CLEAN CATCH Performed By: #### L 505.5000, L501.9985, L501.9520, L100.0100, L506.0400, L3300.3500, L500.4100, L500.4050 #### [facility] [address] [place], [place], [id number] Echo Completeon 05-30-2025 Echo Complete [facility] [address] [place] [address] Echo Complete 05/30/25 0706 MR#: [id number] Acct: [id number] Name: KATIE PULLIAM Rep #: [id number] : 1995 30 From: Rob Olmedo MD Attending Dr: MERT [...] Referring Physician: Lala Ybarra Performed By: Jerri Garcia RDCS, RVT 05/30/25 1140 Date Rob Olmedo MD CC: [facility]SC WIRE FRAME DIPPER-C Lala Ybarra; MERT Phillips Date Dictated: 05/30/25 0706 Date Transcribed: 05/30/25 114 Collection Card Clerk: Signed Normal [facility] Echocardiogram study reportO rdered By: Rob Olmedo on 05-30-2025 Study report [facility] [address] [place] [address] Echo Complete 05/30/25705 MR#: [id number] Acct: [id number] Name: KATIE PULLIAM Rep #:[id number] : 1995 30 From: Rob Mathis Attending Dr: MERT Phillips Status: REG CLI Ordering Dr: Jannette Wilcox Date: 05/30/25 Location: [facility] Sex: F C Admitted: Reason For Study [...] 1140 Date _ Rob Olmedo MD CC: [facility] WIRE FRAME DIPPER-C Lala Ybarra; MERT Phillips ~ Date Dictated: 05/30/25705 Date Transcribed: 05/30/25 1140 Collection Card Clerk: Signed [facility] Work Phone: Cardiology Visit Reporton Cardiology Visit Report [facility] [address] [facility] [address] [place] [address] OFFICE VISIT Date of Service: 05/12/25 MR#: [id number] Acct: [id number] Name: KATIE PULLIAM Rep #: [id number] : 1995 Provider: MERT Alicea Age/Sex: 30/F Location: [facility] Status: Signed HPI HPI History of Present Illness Details: KATIE CHENG, is a 30 year old white female who presents to the office today for outpatient cardiovascular follow up based upon concerns of underlying of congenital pulmonic stenosis. She had previously been followed through [facility]. 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 She complains of increased low back pain over the last weekend. She states she worked the [employer] last wekend and stood for long hours [...] Yes thoraco-lum (more content not included)... Normal [facility] Insulin Levelon 04-07-2025 INSULIN,FASTING 10.8 uIU/mL Normal 2.6-24.9 [facility] Comment on above: Result Comment: Perf ormed at: - [facility] [address] [id number] Piping Design Specialist: Roque Soriano PhD, Phone: [phone] Performed By: #### L 505.5000, L501.9985, L501.9520, L100.0100, L506.0400, L3300.3500, L500.4100, L500.4050 #### [facility] Laboratory [address] [place], [address] Absolute lymphocyte countOrd ered By: [facility] Lala Ybarra on 04-05-2025 Lymphocytes Auto (Unsp spec) [#/Vol] 1.95 10*3/uL 0.83-4.51 [facility] Absolute neutrophil countOrd ered By: [facility] on 04-05-2025 Neutrophils (Bld) [#/Vol] 4.7 10*3/uL 2.0-7.7 [facility] Amphetamine detection with 1 000 ng/mL as cutoffOrdered By: [facility] on 04-05-2025 Amphetamines Screen method >1000 ng/mL Ql (U) Negative < 200 ng/mL [facility] Anion gap in Serum or Plasma Ordered By: [facility] on 04-05-2025 Anion gap [Moles/Vol] 11 mmol/L 5-15 [facility] Automated lymphocyte count a s percentage of total leukocytesOrdered By: [facility] on 04-05-2025 Lymphocytes/100 WBC Auto (Unsp spec) 26.9 % 19-41 [facility] BUN/creatinine ratioOrdered By: [facility] on 04-05-2025 Urea nitrogen/Creatinine [Mass ratio] 17.0 mg/mg 10-20 [facility] Basophil percentageOrdered B y: [facility] on 04-05-2025 Basophils/100 WBC (Bld) 0.3 % 0-1 [facility] Bilirubin, totalOrdered By: [facility] on 04-05-2025 Bilirubin [Mass/Vol] 0.31 mg/dL 0.00-1.30 [facility] CBC W/Diff, Automatedon 03-26 Absolute Lymph 1.95 X10 3/uL Normal 0.83-4.51 [facility] Comment on above: Performed By: #### L 505.5000, L501.9985, L501.9520, L100.0100, L506.0400, L3300.3500, L500.4100, L500.4050 #### [facility] Laboratory [address] [place], [address] Absolute Neut 4.7 X10 3/uL Normal 2.0-7.7 [facility] Comment on above: Performed By: #### L 505.5000, L501.9985, L501.9520, L100.0100, L506.0400, L3300.3500, L500.4100, L500.4050 #### [facility] [address] [place], [address] Basophils/100 WBC (Bld) 0.3 % Normal 0-1 [facility] Comment on above: Performed By: #### L 505.5000, L501.9985, L501.9520, L100.0100, L506.0400, L3300.3500, L500.4100, L500.4050 #### [facility] [address] [place], [address] Eosinophils/100 WBC (Bld) 1.5 % Normal 0-5 [facility] Comment on above: Performed By: #### L 505.5000, L501.9985, L501.9520, L100.0100, L506.0400, L3300.3500, L500.4100, L500.4050 #### [facility] [address] [place], [address] Erythrocyte distribution width (RBC) [Ratio] 13.8 % Normal 11.6-14.6 [facility] Comment on above: Performed By: #### L 505.5000, L501.9985, L501.9520, L100.0100, L506.0400, L3300.3500, L500.4100, L500.4050 #### [facility] [address] [place], [address] Hematocrit (Bld) [Volume fraction] 39.2 % Normal 37-47 [facility] Comment on above: Performed By: #### L 505.5000, L501.9985, L501.9520, L100.0100, L506.0400, L3300.3500, L500.4100, L500.4050 #### [facility] [address] [place], [address] Hemoglobin (Bld) [Mass/Vol] 13.0 g/dL Normal 12.0-15.0 [facility] Comment on above: Performed By: #### L 505.5000, L501.9985, L501.9520, L100.0100, L506.0400, L3300.3500, L500.4100, L500.4050 #### [facility] [address] [place], [address] IG% 0.300 Normal 0.0-0.9 [facility] Comment on above: Result Comment: IG% - Immature Granulocytes (promyelocytes, myelocytes and metamyelocytes) > 1% indicates that a LEFT SHIFT is Present. Performed By: #### L 505.5000, L501.9985, L501.9520, L100.0100, L506.0400, L3300.3500, L500.4100, L500.4050 #### [facility] [address] [place], [address] Lymphocytes/100 WBC (Bld) 26.9 % Normal 19-41 [facility] Comment on above: Performed By: #### L 505.5000, L501.9985, L501.9520, L100.0100, L506.0400, L3300.3500, L500.4100, L500.4050 #### [facility] [address] [place], [address] MCH (RBC) [Entitic mass] 28.0 pg Normal 27.0-32.0 [facility] Comment on above: Performed By: #### L 505.5000, L501.9985, L501.9520, L100.0100, L506.0400, L3300.3500, L500.4100, L500.4050 #### [facility] [address] [place], [address] MCHC (RBC) [Mass/Vol] 33.2 g/dL Normal 32-36 [facility] Comment on above: Performed By: #### L 505.5000, L501.9985, L501.9520, L100.0100, L506.0400, L3300.3500, L500.4100, L500.4050 #### [facility] [address] [place], [address] MCV (RBC) [Entitic vol] 84.5 fL Normal 81-99 [facility] Comment on above: Performed By: #### L 505.5000, L501.9985, L501.9520, L100.0100, L506.0400, L3300.3500, L500.4100, L500.4050 #### [facility] [address] [place], [address] Monocytes/100 WBC (Bld) 6.3 % Normal 0-10 [facility] Comment on above: Performed By: #### L 505.5000, L501.9985, L501.9520, L100.0100, L506.0400, L3300.3500, L500.4100, L500.4050 #### [facility] [address] [place], [address] Neutrophils/100 WBC (Bld) 64.7 % Normal 47-70 [facility] Comment on above: Performed By: #### L 505.5000, L501.9985, L501.9520, L100.0100, L506.0400, L3300.3500, L500.4100, L500.4050 #### [facility] [address] [place], [address] Nucleated RBC (Bld) [#/Vol] 0 10*3/uL Normal 0-5 [facility] Comment on above: Performed By: #### L 505.5000, L501.9985, L501.9520, L100.0100, L506.0400, L3300.3500, L500.4100, L500.4050 #### [facility] [address] [place], [address] Platelet mean volume (Bld) [Entitic vol] 11.8 fL Normal 6.2-12.0 [facility] Comment on above: Performed By: #### L 505.5000, L501.9985, L501.9520, L100.0100, L506.0400, L3300.3500, L500.4100, L500.4050 #### [facility] [address] [place], [address] Platelets (Bld) [#/Vol] 293 10*3/uL Normal 150-450 [facility] Comment on above: Performed By: #### L 505.5000, L501.9985, L501.9520, L100.0100, L506.0400, L3300.3500, L500.4100, L500.4050 #### [facility] [address] [place], [address] RBC (Bld) [#/Vol] 4.64 10*6/uL Normal 4.2-5.4 [facility] Comment on above: Performed By: #### L 505.5000, L501.9985, L501.9520, L100.0100, L506.0400, L3300.3500, L500.4100, L500.4050 #### [facility] [address] [place], [address] RDW SD 42.2 fl Normal 35.1-43.9 [facility] Comment on above: Performed By: #### L 505.5000, L501.9985, L501.9520, L100.0100, L506.0400, L3300.3500, L500.4100, L500.4050 #### [facility] [address] [place], [address] WBC (Bld) [#/Vol] 7.3 10*3/uL Normal 4.4-11.0 [facility] Comment on above: Performed By: #### L 505.5000, L501.9985, L501.9520, L100.0100, L506.0400, L3300.3500, L500.4100, L500.4050 #### [facility] [address] [place], [address] Calculated very low density lipoprotein (VLDL) cholesterol measurementOrdered By: [facility] Lala Ybarra on 04-05-2025 Calculated very low density lipoprotein (VLDL) cholesterol measurement 16 mg/dL 5-40 [facility] Carbon dioxide, total [Moles /volume] in Central venous bloodOrdered By: [facility] Lala Ybarra on 04-05-2025 CO2 [Moles/Vol] 19.5 mmol/L Low 21.0-32.0 [facility] Chloride assayOrdered By: [facility] Lala Ybarra on 04-05-2025 Chloride [Moles/Vol] 107 mmol/L 98-108 [facility] Comprehensive Metabolic Prof ilon 04-05-2025 Albumin [Mass/Vol] 4.0 g/dL Normal 3.5-5.0 [facility] Comment on above: Performed By: #### L 505.5000, L501.9985, L501.9520, L100.0100, L506.0400, L3300.3500, L500.4100, L500.4050 #### [facility] [address] [place], [address] Albumin/Globulin [Mass ratio] 1.3 {ratio} Normal 0.9-2.4 [facility] Comment on above: Performed By: #### L 505.5000, L501.9985, L501.9520, L100.0100, L506.0400, L3300.3500, L500.4100, L500.4050 #### [facility] [address] [place], [address] ALK PHOS 76 U/L Normal 35-104 [facility] Comment on above: Performed By: #### L 505.5000, L501.9985, L501.9520, L100.0100, L506.0400, L3300.3500, L500.4100, L500.4050 #### [facility] [address] [place], [address] ALT [Catalytic activity/Vol] 14 U/L Normal <=34 [facility] Comment on above: Performed By: #### L 505.5000, L501.9985, L501.9520, L100.0100, L506.0400, L3300.3500, L500.4100, L500.4050 #### [facility] [address] [place], [address] AST [Catalytic activity/Vol] 21 U/L Normal <=31 [facility] Comment on above: Performed By: #### L 505.5000, L501.9985, L501.9520, L100.0100, L506.0400, L3300.3500, L500.4100, L500.4050 #### [facility] [address] [place], [place], [id number] (469) Bilirubin [Mass/Vol] 0.31 mg/dL Normal 0.00-1.30 [facility] Comment on above: Performed By: #### L 505.5000, L501.9985, L501.9520, L100.0100, L506.0400, L3300.3500, L500.4100, L500.4050 #### [facility] [address] [place], [address] BUN/CRE 17.0 RATIO Normal 10-20 [facility] Comment on above: Performed By: #### L 505.5000, L501.9985, L501.9520, L100.0100, L506.0400, L3300.3500, L500.4100, L500.4050 #### [facility] [address] [place], [address] Calcium [Mass/Vol] 8.9 mg/dL Normal 7.6-11.0 [facility] Comment on above: Performed By: #### L 505.5000, L501.9985, L501.9520, L100.0100, L506.0400, L3300.3500, L500.4100, L500.4050 #### [facility] [address] [place], [address] Chloride [Moles/Vol] 107 mmol/L Normal 98-108 [facility] Comment on above: Performed By: #### L 505.5000, L501.9985, L501.9520, L100.0100, L506.0400, L3300.3500, L500.4100, L500.4050 #### [facility] [address] [place], [address] CO2 [Moles/Vol] 19.5 mmol/L Low 21.0-32.0 [facility] Comment on above: Performed By: #### L 505.5000, L501.9985, L501.9520, L100.0100, L506.0400, L3300.3500, L500.4100, L500.4050 #### [facility] [address] [place], [address] Creatinine [Mass/Vol] 0.64 mg/dL Low 0.70-1.20 [facility] Comment on above: Performed By: #### L 505.5000, L501.9985, L501.9520, L100.0100, L506.0400, L3300.3500, L500.4100, L500.4050 #### [facility] [address] [place], [address] GAP 11 Normal 5-15 [facility] Comment on above: Performed By: #### L 505.5000, L501.9985, L501.9520, L100.0100, L506.0400, L3300.3500, L500.4100, L500.4050 #### [facility] [address] [place], [address] GFR/1.73 sq M.predicted among non-blacks MDRD (S/P/Bld) [Vol rate/Area] 123 mL/min/{1.73_m2} Normal >60 [facility] Comment on above: Result Comment: mL/m in/1.73m2 CKD-EPI Creatinine Equation (2020) Performed By: #### L 505.5000, L501.9985, L501.9520, L100.0100, L506.0400, L3300.3500, L500.4100, L500.4050 #### [facility] [address] [place], [address] Globulin (S) [Mass/Vol] 3.1 g/dL Normal 2.2-4.2 [facility] Comment on above: Performed By: #### L 505.5000, L501.9985, L501.9520, L100.0100, L506.0400, L3300.3500, L500.4100, L500.4050 #### [facility] [address] [place], [address] Glucose [Mass/Vol] 92 mg/dL Normal 70-99 [facility] Comment on above: Performed By: #### L 505.5000, L501.9985, L501.9520, L100.0100, L506.0400, L3300.3500, L500.4100, L500.4050 #### [facility] [address] [place], [address] Potassium [Moles/Vol] 4.0 mmol/L Normal 3.3-5.1 [facility] Comment on above: Performed By: #### L 505.5000, L501.9985, L501.9520, L100.0100, L506.0400, L3300.3500, L500.4100, L500.4050 #### [facility] [address] [place], [address] Sodium [Moles/Vol] 138 mmol/L Normal 133-145 [facility] Comment on above: Performed By: #### L 505.5000, L501.9985, L501.9520, L100.0100, L506.0400, L3300.3500, L500.4100, L500.4050 #### [facility] [address] [place], [place], [phone] (648) T PROT 7.1 g/dL Normal 5.9-8.4 [facility] Comment on above: Performed By: #### L 505.5000, L501.9985, L501.9520, L100.0100, L506.0400, L3300.3500, L500.4100, L500.4050 #### [facility] [address] [place], [place], [phone] (564) Urea nitrogen [Mass/Vol] 11 mg/dL Normal 4-19 [facility] Comment on above: Performed By: #### L 505.5000, L501.9985, L501.9520, L100.0100, L506.0400, L3300.3500, L500.4100, L500.4050 #### [facility] [address] [place], [address] Eosinophil percentageOrdered By: [facility] Lala Ybarra on 04-05-2025 Eosinophils/100 WBC (Bld) 1.5 % 0-5 [facility] Erythrocyte distribution wid th ratioOrdered By: [facility] Lala Ybarra on 04-05-2025 Erythrocyte distribution width (RBC) [Ratio] 13.8 % 11.6-14.6 [facility] Erythrocyte distribution wid th standard deviationOrdered By: [facility] Lala Tate on 04-05-2025 Erythrocyte distribution width (RBC) [Ratio] 42.2 fl 35.1-43.9 [facility] Glomerular filtration rate ( GFR) estimation/1.73 sq m using serum, plasma, or whole bOrdered By: [facility] Lala Ybarra on 04-05-2025 GFR/1.73 sq M.predicted among non-blacks MDRD (S/P/Bld) [Vol rate/Area] 123 mL/min/{1.73_m2} >60 [facility] Comment on above: mL/min/1.73m2 CKD-EP I Creatinine Equation (2020) Hematocrit Auto (Bld) [Volum e fraction]Ordered By: [facility] Lala Ybarra on 04-05-2025 Hematocrit (Bld) [Volume fraction] 39.2 % 37-47 [facility] Hemoglobin A1con 04-05-2025 HbA1c (Bld) [Mass fraction] 5.6 % Normal <=5.6 [facility] Comment on above: Result Comment: Norm al < 5.7 % Prediabetic 5.7 - 6.4 % Diabetic >or= 6.5 % Please note range changes. Performed By: #### L 505.5000, L501.9985, L501.9520, L100.0100, L506.0400, L3300.3500, L500.4100, L500.4050 #### [facility] Laboratory [facility] [place], [place], [id number] Hemoglobin A1c percentageOrd ered By: [facility] Lala Ybarra on 04-05-2025 HbA1c (Bld) [Mass fraction] 5.6 % <5.7 [facility] Comment on above: Normal < 5.7 % Predi abetic 5.7 - 6.4 % Diabetic >or= 6.5 % Please note range changes. Hemoglobin measurementOrdere d By: [facility] Lala Ybarra on 04-05-2025 Hemoglobin (Bld) [Mass/Vol] 13.0 g/dL 12.0-15.0 [facility] Immature granulocytes/100 WB C Auto (Bld)Ordered By: [facility] Lala Ybarra on 04-05-2025 Immature granulocytes/100 WBC (Bld) 0.300 % 0.0-0.9 [facility] Comment on above: IG% - Immature Granu locytes (promyelocytes, myelocytes and metamyelocytes) > 1% indicates that a LEFT SHIFT is Present. LDL calc ser/plasOrdered By: [facility] Lala Tate on 04-05-2025 Cholesterol in LDL [Mass/Vol] 95 mg/dL [facility] Comment on above: Ovtjsvrtvc=827-012 m g/dL & Higher Hynu=009 mg/dL or greater Laboratory - Chemistry and C hemistry - challengeOrdered By: [facility] Tate on 04-05-2025 AST [Catalytic activity/Vol] 21 U/L <32 [facility] Lipid Profileon 04-05-2025 CHOL:HDL 3.25 Normal [facility] Comment on above: Performed By: #### L 505.5000, L501.9985, L501.9520, L100.0100, L506.0400, L3300.3500, L500.4100, L500.4050 #### [facility] [address] [facility] [place], [address] Cholesterol [Mass/Vol] 161 mg/dL Normal <=200 [facility] Comment on above: Result Comment: Chol esterol level, Desirable <200 mg/dL Borderline high cholesterol 200-239 mg/dL High cholesterol >=240 mg/dL Recommendations of the NCEP Adult Treatment Panel for the following risk-cutoff thresholds for the [place] population. Performed By: #### L 505.5000, L501.9985, L501.9520, L100.0100, L506.0400, L3300.3500, L500.4100, L500.4050 #### [facility] [address] [place], [address] Cholesterol in HDL [Mass/Vol] 50 mg/dL Normal [facility] Comment on above: Result Comment: [place] onal Cholesterol Education Program (NCEP) guidelines: <40 mg/dL: Low HDL-cholesterol (major risk factor for CHD) >= 60 mg/dL: High HDL-cholesterol (negative risk factor for CHD) HDL-cholesterol is affected by a number of factors, e.g. smoking, exercise, hormones, sex and age. Performed By: #### L 505.5000, L501.9985, L501.9520, L100.0100, L506.0400, L3300.3500, L500.4100, L500.4050 #### [facility] [address] [place], [address] Cholesterol in LDL [Mass/Vol] 95 mg/dL Normal [facility] Comment on above: Result Comment: Bord bbmidd=802-891 mg/dL Higher Ezah=909 mg/dL or greater Performed By: #### L 505.5000, L501.9985, L501.9520, L100.0100, L506.0400, L3300.3500, L500.4100, L500.4050 #### [facility] [address] [place], [address] Cholesterol in VLDL [Mass/Vol] 16 mg/dL Normal 5-40 [facility] Comment on above: Performed By: #### L 505.5000, L501.9985, L501.9520, L100.0100, L506.0400, L3300.3500, L500.4100, L500.4050 #### [facility] [address] [place], [address] Triglyceride [Mass/Vol] 80 mg/dL Normal [facility] Comment on above: Result Comment: The drugs N-Acetylcysteine and Metamizole may falsely depress this assay. Normal range: <150 mg/dL Borderline High: 150-199 mg/dL High: 200-499 mg/dL Very High: >500 mg/dL Performed By: #### L 505.5000, L501.9985, L501.9520, L100.0100, L506.0400, L3300.3500, L500.4100, L500.4050 #### [facility] [address] [place], [place], [address] MCV (mean corpuscular volume ) determinationOrdered By: [facility] Lala Ybarra on 04-05-2025 MCV (RBC) [Entitic vol] 84.5 fL 81-99 [facility] Mean corpuscular hemoglobin (MCH) determinationOrdered By: [facility] Lala Ybarra on 04-05-2025 MCH (RBC) [Entitic mass] 28.0 pg 27.0-32.0 [facility] Mean corpuscular hemoglobin concentration (MCHC) determinationOrdered By: [facility] Lala Ybarra on 04-05-2025 MCHC (RBC) [Mass/Vol] 33.2 g/dL 32-36 [facility] Mean platelet volume determi nationOrdered By: [facility] Lala Ybarra on 04-05-2025 Platelet mean volume (Bld) [Entitic vol] 11.8 fL 6.2-12.0 [facility] Monocyte percentageOrdered B y: [facility] Lala Ybarra on 04-05-2025 Monocytes/100 WBC (Bld) 6.3 % 0-10 [facility] Neutrophil percentageOrdered By: [facility] Tate on 04-05-2025 Neutrophils/100 WBC (Bld) 64.7 % 47-70 [facility] [facility] No Panel InformationOrdered By: [facility] Lala Ybarra on 04-05-2025 Urine Buprenorphine Qualitative Negative < 200 ng/mL [facility] Urine Oxycodone Screen Negative < 100 ng/mL [facility] Nucleated red blood cell per centageOrdered By: [facility] Lala Ybarra on 04-05-2025 Nucleated RBC/100 WBC (Bld) [Ratio] 0 % 0-5 [facility] Office Visit Reporton 2024 Office Visit Report [facility] [address] [place] [address] OFFICE VISIT Date of Service: 12/29/24 MR#: [id number] Acct: [id number] Patient: KATIE PULLIAM Rep #: [id number] : 1995 Provider: UZIEL Drake Age/Sex: 30/F Location: [facility] Status: Signed Intake Vital Signs 12/07/24 09:08 Height 5 ft 2 in 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/ [facility] Chief Complaint: 6Month FU Allergies adhesive [...] PCR Not DETECTED Last Edit by Isabella Maynrad on 12/29/24 13:50 CEPHEID FLU AB PCR NOT DETECTED FLU A B Last Edit by Isabella Maynard on 12/29/24 13:50 CEPHEID RSV PCR NOT DETECTED Last Edit by Isabella Maynard on 12/29/24 13:50 Assessment and Plan Plan Details Goals Barriers: Goals Decrease pain Increase ROM Decrease spasm 04/26/25 0612 Date Demario Chekobethanie [place] Signature: Date (if applicable) CC: Normal [facility] Platelet countOrdered By: BERTIN Ybarra on 04-05-2025 Platelets (Bld) [#/Vol] 293 10*3/uL 150-450 [facility] Potassium measurement (mass/ volume)Ordered By: ESTUARDO Ybarra on 04-05-2025 Potassium (Unsp spec) [Mass/Vol] 4.0 mmol/L 3.3-5.1 [facility] Quantitative urine opiates m easurementOrdered By: ESTURADO Ybarra on 04-05-2025 Opiates Ql (U) Negative < 300 ng/mL [facility] RBC Auto (Bld) [#/Vol]Ordere d By: [facility] Lala Ybarra on 04-05-2025 RBC (Bld) [#/Vol] 4.64 10*6/uL 4.2-5.4 [facility] Screening total cholesterol/ high density lipoprotein (HDL) cholesterol ratioOrdered By: [facility] Lala Ybarra on 04-05-2025 Cholesterol.total/Dotty sterol in HDL [Mass ratio] 3.25 {ratio} [facility] Screening urine fentanyl thierno surementOrdered By: [facility] Lala Ybarra on 04-05-2025 fentaNYL Screen Ql (U) Negative [facility] Serum creatinine measurement (mass/volume)Ordered By: [facility] Lala Ybarra on 04-05-2025 Creatinine [Mass/Vol] 0.64 mg/dL Low 0.70-1.20 [facility] Serum globulin measurementOr dered By: [facility] Lala Ybarra on 04-05-2025 Globulin (S) [Mass/Vol] 3.1 g/dL 2.2-4.2 [facility] Serum glucose measurement (m ass/volume)Ordered By: [facility] Lala Ybarra on 04-05-2025 Glucose [Mass/Vol] 92 mg/dL 70-99 [facility] Serum or plasma alanine perrin otransferase (ALT) measurementOrdered By: [facility] Lala Ybarra on 04-05-2025 ALT [Catalytic activity/Vol] 14 U/L <35 [facility] Serum or plasma albumin raad urement (mass/volume)Ordered By: [facility] Lala Ybarra on 04-05-2025 Albumin [Mass/Vol] 4.0 g/dL 3.5-5.0 [facility] Serum or plasma albumin/glob ulin mass ratioOrdered By: [facility] Lala Ybarra on 04-05-2025 Albumin/Globulin [Mass ratio] 1.3 {ratio} 0.9-2.4 [facility] Serum or plasma alkaline peterson sphatase measurementOrdered By: [facility] Lala Ybarra on 04-05-2025 ALP [Catalytic activity/Vol] 76 U/L 35-104 [facility] Serum or plasma calcium raad urement (mass/volume)Ordered By: [facility] Lalayina Ybarra on 04-05-2025 Calcium [Mass/Vol] 8.9 mg/dL 7.6-11.0 [facility] Serum or plasma cholesterol in HDL measurement (mass/volume)Ordered By: [facility] Lala Ybarra on 04-05-2025 Cholesterol in HDL [Mass/Vol] 50 mg/dL >40 [facility] Comment on above: National Cholesterol Education Program (NCEP) guidelines:<40 mg/dL: Low HDL-cholesterol (major risk factor for CHD)>= 60 mg/dL: High HDL-cholesterol (negative risk factor for CHD)HDL-cholesterol is affected by a number of factors, e.g. smoking, exercise, hormones, sex and age. Serum or plasma cholesterol measurement (mass/volume)Ordered By: [facility] Lala Ybarra on 04-05-2025 Cholesterol [Mass/Vol] 161 mg/dL <201 [facility] Comment on above: Cholesterol level, D esirable <200 mg/dLBorderline high cholesterol 200-239 mg/dLHigh cholesterol >=240 mg/dLRecommendations of the NCEP Adult Treatment Panel for the following risk-cutoff thresholds for the [place] population. Serum or plasma insulin raad urement (mass/volume)Ordered By: [facility] Lala Ybarra on 04-05-2025 Insulin [Mass/Vol] 10.8 uIU/mL 2.6-24.9 [facility] Comment on above: Performed at: [place] [id number] Director: Roque Soriano PhD, Phone: [phone] Serum or plasma urea nitroge n measurement (mass/volume)Ordered By: [facility] Lala Ybarra on 04-05-2025 Urea nitrogen [Mass/Vol] 11 mg/dL 4-19 [facility] Sodium levelOrdered By: [facility] Hospital[facility] Y[facility] on 04-05-2025 Sodium [Moles/Vol] 138 mmol/L 133-145 [facility] T4 Free Directon 04-05-2025 T4 FREE DIRECT 0.90 ng/dL Normal 0.76-1.46 [facility] Comment on above: Performed By: #### L 505.5000, L501.9985, L501.9520, L100.0100, L506.0400, L3300.3500, L500.4100, L500.4050 #### [facility] [address] [place], [address] T4 freeOrdered By: [facility] Jeni garcia Tate on 04-05-2025 Free T4 [Mass/Vol] 0.90 ng/dL 0.76-1.46 [facility] TSH DL <= 0.005 mIU/L QnOrde red By: [facility] Lala Tate on 04-05-2025 TSH Qn 2.050 uIU/mL 0.300-4.20 0 [facility] Thyroid Stim Hormone (TSH)on 04-05-2025 TSH 2.050 uIU/mL Normal 0.300-4.20 0 [facility] Comment on above: Performed By: #### L 505.5000, L501.9985, L501.9520, L100.0100, L506.0400, L3300.3500, L500.4100, L500.4050 #### [facility] [address] [place], [address] Total proteinOrdered By: [facility] Lala Tate on 04-05-2025 Protein [Mass/Vol] 7.1 g/dL 5.9-8.4 [facility] Triglycerides measurementOrd ered By: [facility] Lala Tate on 04-05-2025 Triglyceride [Mass/Vol] 80 mg/dL <199 [facility] Comment on above: The drugs N-Acetylcy steine and Metamizole may falsely depress this assay. Normal range: <150 mg/dLBorderline High: 150-199 mg/dLHigh: 200-499 mg/dLVery High: >500 mg/dL Urine Drug Screen (VISTA)on 04-05-2025 AMPHETAMINES Negative Normal <1000 ng/mL [facility] Comment on above: Order Comment: UNK Performed By: #### L 505.5000, L501.9985, L501.9520, L100.0100, L506.0400, L3300.3500, L500.4100, L500.4050 #### [facility] [address] [place], [place], [phone] BARBITIURATES Negative Normal < 200 ng/mL [facility] Comment on above: Order Comment: UNK Performed By: #### L 505.5000, L501.9985, L501.9520, L100.0100, L506.0400, L3300.3500, L500.4100, L500.4050 #### [facility] [address] [place], [address] BENZODIAZIPINE Negative Normal < 200 ng/mL [facility] Comment on above: Order Comment: UNK Performed By: #### L 505.5000, L501.9985, L501.9520, L100.0100, L506.0400, L3300.3500, L500.4100, L500.4050 #### [facility] [address] [place], [address] BUP Ur Drug Scr Negative Normal < 200 ng/mL [facility] Comment on above: Order Comment: UNK Performed By: #### L 505.5000, L501.9985, L501.9520, L100.0100, L506.0400, L3300.3500, L500.4100, L500.4050 #### [facility] [address] [place], [address] COCAINE Negative Normal < 300 ng/mL [facility] Comment on above: Order Comment: UNK Performed By: #### L 505.5000, L501.9985, L501.9520, L100.0100, L506.0400, L3300.3500, L500.4100, L500.4050 #### [facility] [address] [place], [address] Fentanyl Negative Normal [facility] Comment on above: Order Comment: UNK Performed By: #### L 505.5000, L501.9985, L501.9520, L100.0100, L506.0400, L3300.3500, L500.4100, L500.4050 #### [facility] [address] [place], [place], [phone] ([phone] METHADONE Negative Normal < 300 ng/mL [facility] Comment on above: Order Comment: UNK Performed By: #### L 505.5000, L501.9985, L501.9520, L100.0100, L506.0400, L3300.3500, L500.4100, L500.4050 #### [facility] [address] [place], [place], [phone] ([phone] OPIATES Negative Normal < 300 ng/mL [facility] Comment on above: Order Comment: UNK Performed By: #### L 505.5000, L501.9985, L501.9520, L100.0100, L506.0400, L3300.3500, L500.4100, L500.4050 #### [facility] [address] [place], [place], [id number] OXYCODONE Negative Normal < 100 ng/mL [facility] Comment on above: Order Comment: UNK Performed By: #### L 505.5000, L501.9985, L501.9520, L100.0100, L506.0400, L3300.3500, L500.4100, L500.4050 #### [facility] [address] [place], [place], [phone] (210) PCP Negative Normal < 25 ng/mL [facility] Comment on above: Order Comment: UNK Performed By: #### L 505.5000, L501.9985, L501.9520, L100.0100, L506.0400, L3300.3500, L500.4100, L500.4050 #### [facility] [address] [place], [address] THC Negative Normal < 50 ng/mL [facility] Comment on above: Order Comment: UNK Performed By: #### L 505.5000, L501.9985, L501.9520, L100.0100, L506.0400, L3300.3500, L500.4100, L500.4050 #### [facility] [address] [place], [place], [id number] Urine benzodiazepine levelOr dered By: [facility] Lala Ybarra on 04-05-2025 Benzodiazepines Ql (U) Negative < 200 ng/mL [facility] Urine cocaine levelOrdered B y: [facility] Lala Ybarra on 04-05-2025 Cocaine Ql (U) Negative < 300 ng/mL [facility] Urine sptgu-6-zmrvdeoyjcdsuw abinol (THC) measurementOrdered By: [facility] Lala Ybarra on 04-05-2025 Cannabinoids Screen Ql (U) Negative < 50 ng/mL [facility] Urine phencyclidine (PCP) de tectionOrdered By: [facility] Lala Ybarra on 04-05-2025 Phencyclidine Ql (U) Negative < 25 ng/mL [facility] White blood cell (WBC) count Ordered By: [facility] Lala Ybarra on 04-05-2025 WBC (Bld) [#/Vol] 7.3 10*3/uL 4.4-11.0 [facility] Office Visit Reporton 2024 Office Visit Report [facility] [address] [place] [address] OFFICE VISIT Date of Service: 11/02/24 MR#: [id number] Acct: [id number] Patient: KATIE PULLIAM Rep #: [id number] : 1995 Provider: MERT Reyes Age/Sex: 30/F Location: [facility] Status: Signed Intake Vital Signs 07/11/24 15:57 Height 5 ft 2 in 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/ [facility] Chief Complaint: 6Month FU Allergies adhesive [...] Feliciano London Signature: Date (if applicable) CC: [facility] 03-27-2025 [facility] Telephone (OBGYWM) KATIE PULLIAM ([id number]) 1995 F Date Time Provider Department 03/27/25 [...] Diagnosis:Female infertility [N97.9] Order(s):CONSULT TO INFERTILITY CLINIC [1599456] Order #: [id number]: 1 FUTURE Prescriptions as of 03/27/2025 - [...] Status:Closed by SCOTTIE CHANCE on 03/27/25 Normal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 [address] [place], [place], [address] Cortisol [Mass/Vol]Ordered B y: Vivienne East on 10-06-2024 Cortisol 20.00 ug/dL 3.44-22.45 [facility] Comment on above: Adult (AM) 5.27 - 22 .45 ug/dL Adult (PM) 3.44 - 16.76 ug/dL Estradiolon 10-06-2024 ESTRADIOL 37.3 pg/mL Normal [facility] Comment on above: Result Comment: [...] DETERMINE ESTRADIOL CONCENTRATION. Performed By: #### L 505.5000, L501.9985, L501.9520, L100.0100, L506.0400, L3300.3500, L500.4100, L500.4050 #### [facility] [address] [place], [place], [address] Estradiol measurementOrdered By: Vivienne East on 10-06-2024 Estradiol (E2) Level 37.3 pg/mL [facility] Comment on above: NORMAL REFERENCE RAN [...] and LHon 10-06-2024 FSH 6.1 mIU/mL Normal [facility] Comment on above: Result Comment: NORMAL REFERENCE RANGES FEMALE FOLLICULAR 2.3 - 12.6 mIU/mL MID-CYCLE PEAK 5.2 - 17.5 mIU/mL LUTEAL 1.7 - 12.9 mIU/mL POST-MENOPAUSAL ON MHT 5.9 - 72.8 mIU/mL NOT ON MHT 12.7 - 132.2 mlU/mL MALE 0.7 - 10.8 mIU/mL Performed By: #### L 505.5000, L501.9985, L501.9520, L100.0100, L506.0400, L3300.3500, L500.4100, L500.4050 #### [facility] [address] [place], [place], [address] LH 13.8 mIU/mL Normal [facility] Comment on above: Result Comment: NORMAL REFERENCE RANGES FEMALE FOLLICULAR 1.9 - 26.2 mIU/mL MID-CYCLE PEAK 22.8 - 76.1 mIU/mL LUTEAL 0.6 - 16.6 mIU/mL POST-MENOPAUSAL ON MHT 1.1 - 52.4 mIU/mL NOT ON MHT 8.6 - 61.8 mIU/mL MALE 1.2 - 10.6 mIU/mL Performed By: #### L 505.5000, L501.9985, L501.9520, L100.0100, L506.0400, L3300.3500, L500.4100, L500.4050 #### [facility] [place], [address] Follicle stimulating hormone (FSH) levelOrdered By: Vivienne East on 10-06-2024 Follicle Stimulating Hormone 6.1 mIU/mL [facility] Comment on above: NORMAL REFERENCE RAN [facility] FEMALE FOLLICULAR 2.3 - 12.6 mIU/mL MID-CYCLE PEAK 5.2 - 17.5 mIU/mL LUTEAL 1.7 - 12.9 mIU/mL POST-MENOPAUSAL ON MHT 5.9 - 72.8 mIU/mL NOT ON MHT 12.7 - 132.2 mlU/mL MALE 0.7 - 10.8 mIU/mL Luteinizing hormone measurem entOrdered By: Vivienne East on 10-06-2024 Luteinizing Hormone 13.8 mIU/mL [facility] Comment on above: NORMAL REFERENCE RAN GES FEMALE FOLLICULAR 1.9 - 26.2 mIU/mL MID-CYCLE PEAK 22.8 - 76.1 mIU/mL LUTEAL 0.6 - 16.6 mIU/mL POST-MENOPAUSAL ON MHT 1.1 - 52.4 mIU/mL NOT ON MHT 8.6 - 61.8 mIU/mL MALE 1.2 - 10.6 mIU/mL Prolactin [Mass/Vol]Ordered By: Vivienne East on 10-06-2024 Prolactin 18.4 ng/mL 4.8-33.4 [facility] Comment on above: Performed at: [address] [id number] Director: Roque Soriano PhD, Phone: [phone] at: - [facility] [address] [id number] Director: Stefano Lopez MD, Phone: [phone] TSH QnOrdered By: Vivienne gonzalez on 10-06-2024 Thyroid Stimulating Hormone (TSH) 2.460 uIU/mL 0.358-3.74 0 [facility] Testosterone Free [Mass/Vol] Ordered By: Vivienne East on 10-06-2024 Free Testosterone 0.48 ng/dL 0.10-0.85 [facility] Testosterone Free/Testostero ne.total [Mass fraction]Ordered By: Vivienne Johner on 10-06-2024 Percent Free Testosterone 1.55 % 0.50-2.80 [facility] Testosterone, totalOrdered B y: Vivienne Rodrigueznger on 10-06-2024 Testosterone [Mass/Vol] 31 ng/dL 13-71 [facility] Thyroid Stim Hormone (TSH)on 10-06-2024 TSH 2.460 uIU/mL Normal 0.358-3.74 0 [facility] Comment on above: Performed By: #### L 505.5000, L501.9985, L501.9520, L100.0100, L506.0400, L3300.3500, L500.4100, L500.4050 #### [facility] [address] [place] [place], [address] Lower Ext Joint Only (Routin e)on 09-10-2024 Lower Ext Joint Only (Routine) [facility] [address] [place] [address] Lower Ext Joint Only (Routine) MR#: [id number] Acct: [id number] Name: KATIE PULLIAM Rep #: [id number] : 1995 F 29 From: Wilfredo smith DO PCP: Lala Ybarar [facility], [employer] Status: REG CLI Study: Lower Ext Joint Only (Routine) Date of Exam: 11/10/23 Exam# [id number] Ordering Dr: Vivienne East [facility] D O 2:[id number] EXAM: MR LEFT LOWER EXTREMITY WITHOUT INTRAVENOUS [...] Carlson DO at 15:25 EST , CC: [facility] UZIEL Ybarra; Vivienne East DO Collection Card Clerk: Signed Normal [facility] Basophil percentageOrdered B y: Cintia Mcgee on 02-03-2024 Chloride [Moles/Vol] 108 mmol/L 98-107 [facility] Glucose [Mass/Vol] 106 mg/dL 74-106 [facility] Comment on above: Fasting Glucose resu lt from 100 to 125 mg/dL suggests IMPAIRED HOMEOSTASIS per A.D.A. criteria. Potassium [Moles/Vol] 3.5 mmol/L 3.5-5.1 [facility] Sodium [Moles/Vol] 140 mmol/L 136-145 [facility] Laboratory - Chemistry and C hemistry - challengeOrdered By: Cintia Mcgee on 02-03-2024 CO2 [Moles/Vol] 28.0 mmol/L 21.0-32.0 [facility] Urea nitrogen/Creatinine [Mass ratio] 17.7 mg/mg 10-20 [facility] No Panel InformationOrdered By: Cintia Mcgee on 02-03-2024 Estimated GFR (MDRD) Amer 121 mL/min >60 [facility] Comment on above: GFR Calc Estimated GFR (MDRD) Non-Af Amer 100 mL/min >60 [facility] Comment on above: Non- GFR Calc Serum or plasma calcium raad urement (mass/volume)Ordered By: Cintia Mcgee on 02-03-2024 Calcium [Mass/Vol] 8.8 mg/dL 8.5-10.1 [facility] Serum or plasma creatinine m easurement (mass/volume)Ordered By: Cintia Mcgee on 02-03-2024 Creatinine [Mass/Vol] 0.74 mg/dL 0.55-1.02 [facility] Comment on above: The validity of the calculated GFR & GFRAA in patients over 70 years has not been determined. Clinical correlation is essential. Serum or plasma urea nitroge n measurement (mass/volume)Ordered By: Cintia Mcgee on 02-03-2024 Urea nitrogen [Mass/Vol] 13 mg/dL 7-18 [facility] Thin prep Papanicolaou smear with manual screeningOrdered By: Cintia Mcgee on 02-03-2024 Thin prep Papanicolaou smear with manual screening 4 5-15 [facility] - Chemistry and C hemistry - challengeOrdered By: Cintia Mcgee on 09-10-2023 Free T4 [Mass/Vol] 1.00 ng/dL 0.76-1.46 [facility] No Panel InformationOrdered By: Cintia Mcgee on 09-10-2023 Thyroid Stimulating Hormone (TSH) 1.51 uIU/mL 0.358-3.74 [facility] Serum or plasma ferritin thierno surement (mass/volume)Ordered By: Cintia Mcgee on 09-10-2023 Ferritin [Mass/Vol] 64 ng/mL 8- [facility] Absolute lymphocyte countOrd ered By: HEALTH ASSESSMENT on 06-18-2023 Lymphocytes Auto (Unsp spec) [#/Vol] 2.68 10*3/uL 0.83-4.51 [facility] Absolute reticulocyte countO rdered By: HEALTH ASSESSMENT on 06-18-2023 Reticulocytes (Bld) [#/Vol] 0.00 10*3/uL 0-5 [facility] [facility] Basophil percentageOrdered B y: HEALTH ASSESSMENT on 06-18-2023 Basophil percentage 3.9 mg/dL 2.5-4.9 [facility] Bilirubin [Mass/Vol] 0.20 mg/dL 0.20-1.00 [facility] Comment on above: For patients on eltr ombopag therapy, use of Dimension [place] TBIL is not recommended. Chloride [Moles/Vol] 111 mmol/L 98-107 [facility] Cholesterol [Mass/Vol] 133 mg/dL <200 [facility] Comment on above: <200 mg/dL Desirable 200-240 mg/dL Borderline >240 mg/dL High Risk Glucose [Mass/Vol] 119 mg/dL 74-106 [facility] Comment on above: Fasting Glucose resu lt from 100 to 125 mg/dL suggests IMPAIRED HOMEOSTASIS per A.D.A. criteria. LDH [Catalytic activity/Vol] 159 U/L 84-246 [facility] Neutrophils (Bld) [#/Vol] 3.1 10*3/uL 2.0-7.7 [facility] Potassium [Moles/Vol] 3.8 mmol/L 3.5-5.1 [facility] Protein [Mass/Vol] 6.8 g/dL 6.4-8.2 [facility] Sodium [Moles/Vol] 142 mmol/L 136-145 [facility] Triglyceride [Mass/Vol] 115 mg/dL <199 [facility] Comment on above: The drugs N-Acetylcy steine and Metamizole may falsely depress this assay.Serum Triglycerides Reference Interval Normal <150 mg/dL Borderline high 150 - 199 mg/dL High 200 - 499 mg/dL Very High > or = 500 mg/dL WBC (Bld) [#/Vol] 6.4 10*3/uL 4.4-11.0 [facility] Bilirubin Test strip Ql (U)O rdered By: HEALTH ASSESSMENT on 06-18-2023 Bilirubin Ql (U) Negative Negative [facility] Blood erythrocytes count (nu mber/volume)Ordered By: HEALTH ASSESSMENT on 06-18-2023 RBC (Bld) [#/Vol] 4.59 10*6/uL 4.2-5.4 [facility] Blood hemoglobin measurement (mass/volume)Ordered By: HEALTH ASSESSMENT on 06-18-2023 Hemoglobin (Bld) [Mass/Vol] 12.9 g/dL 12.0-15.0 [facility] Blood platelet mean volumeOr dered By: HEALTH ASSESSMENT on 06-18-2023 Platelet mean volume (Bld) [Entitic vol] 10.6 fL 6.2-12.0 [facility] Determination of erythrocyte mean corpuscular volume (MCV)Ordered By: HEALTH ASSESSMENT on 06-18-2023 MCV (RBC) [Entitic vol] 87.6 fL 81-99 [facility] Direct bilirubinOrdered By: HEALTH ASSESSMENT on 06-18-2023 Bilirubin.direct [Mass/Vol] 0.09 mg/dL 0.00-0.30 [facility] Hematocrit Auto (Bld) [Volum e fraction]Ordered By: HEALTH ASSESSMENT on 06-18-2023 Hematocrit (Bld) [Volume fraction] 40.2 % 37-47 [facility] Ketones Test strip Ql (U)Ord ered By: HEALTH ASSESSMENT on 06-18-2023 Ketones Ql (U) Negative Negative [facility] Laboratory - Chemistry and C hemistry - challengeOrdered By: HEALTH ASSESSMENT on 06-18-2023 ALP [Catalytic activity/Vol] 66 U/L 45-117 [facility] ALT [Catalytic activity/Vol] 21 U/L 13-56 [facility] Cholesterol.total/Dotty sterol in HDL [Mass ratio] 2.40 {ratio} [facility] CO2 [Moles/Vol] 25.0 mmol/L 21.0-32.0 [facility] Globulin (S) [Mass/Vol] 3.8 g/dL 2.2-4.2 [facility] Urea nitrogen/Creatinine [Mass ratio] 15.8 mg/mg 10-20 [facility] Laboratory - Hematology and Cell countsOrdered By: HEALTH ASSESSMENT on 06-18-2023 Erythrocyte distribution width (RBC) [Entitic vol] 42.5 fL 35.1-43.9 [facility] Erythrocyte distribution width (RBC) [Ratio] 13.3 % 11.6-14.6 [facility] MCH (RBC) [Entitic mass] 28.1 pg 27.0-32.0 [facility] Nucleated RBC/100 WBC (Bld) [Ratio] 0 % 0-5 [facility] MCHC Auto (RBC) [Mass/Vol]Or dered By: HEALTH ASSESSMENT on 06-18-2023 MCHC (RBC) [Mass/Vol] 32.1 g/dL 32-36 [facility] Nitrite Test strip Ql (U)Ord ered By: HEALTH ASSESSMENT on 06-18-2023 Nitrite Ql (U) Negative Negative [facility] No Panel InformationOrdered By: HEALTH ASSESSMENT on 06-18-2023 Estimated GFR (MDRD) Amer 130 mL/min >60 [facility] Comment on above: GFR Calc Estimated GFR (MDRD) Non-Af Amer 107 mL/min >60 [facility] Comment on above: Non- GFR Calc Platelets bldOrdered By: [facility] ASSESSMENT on 06-18-2023 Platelets (Bld) [#/Vol] 314 10*3/uL 150-450 [facility] Protein Test strip Ql (U)Ord ered By: HEALTH ASSESSMENT on 06-18-2023 Protein Ql (U) Negative Negative [facility] Segmented neutrophils/100 WB C Auto (Bld)Ordered By: HEALTH ASSESSMENT on 06-18-2023 Segmented neutrophils/100 WBC (Bld) 48.3 % 47-70 [facility] Serum or plasma albumin raad urement (mass/volume)Ordered By: HEALTH ASSESSMENT on 06-18-2023 Albumin [Mass/Vol] 3.0 g/dL 3.2-5.0 [facility] Serum or plasma albumin/glob ulin mass ratioOrdered By: HEALTH ASSESSMENT on 06-18-2023 Albumin/Globulin [Mass ratio] 0.8 {ratio} 0.9-2.4 [facility] Serum or plasma calcium raad urement (mass/volume)Ordered By: HEALTH ASSESSMENT on 06-18-2023 Calcium [Mass/Vol] 8.6 mg/dL 8.5-10.1 [facility] Serum or plasma cholesterol in HDL measurement (mass/volume)Ordered By: HEALTH ASSESSMENT on 06-18-2023 Cholesterol in HDL [Mass/Vol] 56 mg/dL >40 [facility] Comment on above: The drugs N-Acetylcy steine and Metamizole may falsely depress this assay. Reference Range HDL <40 mg/dL Low HDL Cholesterol HDL >or= 60 mg/dL High HDL Cholesterol Serum or plasma cholesterol in VLDL measurement (mass/volume)Ordered By: HEALTH ASSESSMENT on 06-18-2023 Cholesterol in VLDL [Mass/Vol] 23 mg/dL 5-40 [facility] Serum or plasma creatinine m easurement (mass/volume)Ordered By: HEALTH ASSESSMENT on 06-18-2023 Creatinine [Mass/Vol] 0.70 mg/dL 0.55-1.02 [facility] Comment on above: The validity of the calculated GFR & GFRAA in patients over 70 years has not been determined. Clinical correlation is essential. Serum or plasma low density lipoprotein (LDL) cholesterol measurement (mass/volume)Ordered By: HEALTH ASSESSMENT on 06-18-2023 Cholesterol in LDL [Mass/Vol] 54 mg/dL 0-130 [facility] Serum or plasma urea nitroge n measurement (mass/volume)Ordered By: HEALTH ASSESSMENT on 06-18-2023 Urea nitrogen [Mass/Vol] 11 mg/dL 7-18 [facility] Serum or plasma uric acid me asurement (mass/volume)Ordered By: HEALTH ASSESSMENT on 06-18-2023 Urate [Mass/Vol] 4.6 mg/dL 2.6-6.0 [facility] Comment on above: The drugs N-Acetylcy steine and Metamizole may falsely depress this assay. Thin prep Papanicolaou smear with manual screeningOrdered By: HEALTH ASSESSMENT on 06-18-2023 Thin prep Papanicolaou smear with manual screening 10 U/L 15-37 [facility] Thin prep Papanicolaou smear with manual screening 6 5-15 [facility] Urine blood detectionOrdered By: HEALTH ASSESSMENT on 06-18-2023 RBC Ql (U) 10 /ul Negative [facility] Urine clarityOrdered By: [facility] ASSESSMENT on 06-18-2023 Clarity (U) Clear Clear [facility] Urine color determinationOrd ered By: HEALTH ASSESSMENT on 06-18-2023 Color (U) Yellow Yellow [facility] Urine glucose detectionOrder ed By: HEALTH ASSESSMENT on 06-18-2023 Glucose Ql (U) Normal mg/dl Normal [facility] Urine leukocyte esterase det ection by dipstickOrdered By: HEALTH ASSESSMENT on 06-18-2023 Leukocyte esterase Test strip Ql (U) 500 /ul Negative [facility] Urine pHOrdered By: HEALTH A SSESSMENT on 06-18-2023 pH (U) 6.5 [pH] 5.0 - 8.0 [facility] Urine specific gravity measu rementOrdered By: HEALTH ASSESSMENT on 06-18-2023 Specific gravity (U) [Rel density] 1.015 1.002-1.03 0 [facility] Urobilinogen Auto test strip Ql (U)Ordered By: HEALTH ASSESSMENT on 06-18-2023 Urobilinogen Ql (U) Normal mg/dl Normal [facility] Absolute lymphocyte countOrd ered By: Dr. Mcgee on 01-27-2023 Lymphocytes Auto (Unsp spec) [#/Vol] 2.06 10*3/uL 0.83-4.51 [facility] Basophil percentageOrdered B y: Dr. Mcgee on 01-27-2023 Basophils/100 WBC (Bld) 0.5 % 0-1 [facility] Bilirubin [Mass/Vol] 0.30 mg/dL 0.20-1.00 [facility] Comment on above: For patients on eltr ombopag therapy, use of Dimension [place] TBIL is not recommended. Chloride [Moles/Vol] 107 mmol/L 98-107 [facility] Eosinophils/100 WBC (Bld) 1.4 % 0-5 [facility] Glucose [Mass/Vol] 99 mg/dL 74-106 [facility] Neutrophils (Bld) [#/Vol] 4.7 10*3/uL 2.0-7.7 [facility] Neutrophils/100 WBC (Bld) 64.1 % 47-70 [facility] Potassium [Moles/Vol] 3.8 mmol/L 3.5-5.1 [facility] Protein [Mass/Vol] 6.9 g/dL 6.4-8.2 [facility] Sodium [Moles/Vol] 136 mmol/L 136-145 [facility] WBC (Bld) [#/Vol] 7.3 10*3/uL 4.4-11.0 [facility] Blood erythrocytes count (nu mber/volume)Ordered By: Dr. Mcgee on 01-27-2023 RBC (Bld) [#/Vol] 4.52 10*6/uL 4.2-5.4 [facility] Blood hemoglobin measurement (mass/volume)Ordered By: Dr. Mcgee on 01-27-2023 Hemoglobin (Bld) [Mass/Vol] 12.8 g/dL 12.0-15.0 [facility] Blood lymphocytes/100 leukoc ytesOrdered By: Dr. Mcgee on 01-27-2023 Lymphocytes/100 WBC (Bld) 28.2 % 19-41 [facility] Blood monocytes/100 leukocyt esOrdered By: Dr. Mcgee on 01-27-2023 Monocytes/100 WBC (Bld) 5.5 % 0-10 [facility] Blood platelet mean volumeOr dered By: Dr. Mcgee on 01-27-2023 Platelet mean volume (Bld) [Entitic vol] 10.9 fL 6.2-12.0 [facility] Determination of erythrocyte mean corpuscular volume (MCV)Ordered By: Dr. Mcgee on 01-27-2023 MCV (RBC) [Entitic vol] 86.7 fL 81-99 [facility] Hematocrit Auto (Bld) [Volum e fraction]Ordered By: Dr. Mcgee on 01-27-2023 Hematocrit (Bld) [Volume fraction] 39.2 % 37-47 [facility] Laboratory - Chemistry and C hemistry - challengeOrdered By: Dr. Mcgee on 01-27-2023 ALP [Catalytic activity/Vol] 70 U/L 45-117 [facility] ALT [Catalytic activity/Vol] 24 U/L 13-56 [facility] CO2 [Moles/Vol] 25.0 mmol/L 21.0-32.0 [facility] Globulin (S) [Mass/Vol] 3.6 g/dL 2.2-4.2 [facility] Urea nitrogen/Creatinine [Mass ratio] 27.2 mg/mg 10-20 [facility] Laboratory - Hematology and Cell countsOrdered By: Dr. Mcgee on 01-27-2023 Erythrocyte distribution width (RBC) [Entitic vol] 42.1 fL 35.1-43.9 [facility] Erythrocyte distribution width (RBC) [Ratio] 13.5 % 11.6-14.6 [facility] Immature granulocytes/100 WBC (Bld) 0.300 % 0.0-0.9 [facility] Comment on above: IG% - Immature Granu locytes (promyelocytes, myelocytes and metamyelocytes) > 1% indicates that a LEFT SHIFT is Present. MCH (RBC) [Entitic mass] 28.3 pg 27.0-32.0 [facility] Nucleated RBC/100 WBC (Bld) [Ratio] 0 % 0-5 [facility] MCHC Auto (RBC) [Mass/Vol]Or dered By: Dr. Mcgee on 01-27-2023 MCHC (RBC) [Mass/Vol] 32.7 g/dL 32-36 [facility] No Panel InformationOrdered By: Dr. Mcgee on 01-27-2023 Estimated GFR (MDRD) Amer 158 mL/min >60 [facility] Comment on above: GFR Calc Estimated GFR (MDRD) Non-Af Amer 131 mL/min >60 [facility] Comment on above: Non- GFR Calc Thyroid Stimulating Hormone (TSH) 2.10 uIU/mL 0.358-3.74 [facility] Platelets bldOrdered By: Dr. Mcgee on 01-27-2023 Platelets (Bld) [#/Vol] 293 10*3/uL 150-450 [facility] Serum or plasma albumin raad urement (mass/volume)Ordered By: Dr. Mcgee on 01-27-2023 Albumin [Mass/Vol] 3.3 g/dL 3.2-5.0 [facility] Serum or plasma albumin/glob ulin mass ratioOrdered By: Dr. Mcgee on 01-27-2023 Albumin/Globulin [Mass ratio] 0.9 {ratio} 0.9-2.4 [facility] Serum or plasma calcium raad urement (mass/volume)Ordered By: Dr. Mcgee on 01-27-2023 Calcium [Mass/Vol] 8.6 mg/dL 8.5-10.1 [facility] Serum or plasma creatinine m easurement (mass/volume)Ordered By: Dr. Mcgee on 01-27-2023 Creatinine [Mass/Vol] 0.59 mg/dL 0.55-1.02 [facility] Comment on above: The validity of the calculated GFR & GFRAA in patients over 70 years has not been determined. Clinical correlation is essential. Serum or plasma thyroperoxid ase antibody assay (units/volume)Ordered By: Dr. Mcgee on 01-27-2023 TPO Ab Qn 10 [IU]/mL 0-34 [facility] Comment on above: Performed at: [place] [id number] Director: Roque Soriano PhD, Phone: [phone] Serum or plasma urea nitroge n measurement (mass/volume)Ordered By: Dr. Mcgee on 01-27-2023 Urea nitrogen [Mass/Vol] 16 mg/dL 7-18 [facility] Thin prep Papanicolaou smear with manual screeningOrdered By: Dr. Mcgee on 01-27-2023 Thin prep Papanicolaou smear with manual screening 13 U/L 15-37 [facility] Thin prep Papanicolaou smear with manual screening 4 5-15 [facility] Influenza virus A and B and SARS-CoV-2 (COVID-19) Ag panel - Upper respiratory specimOrdered By: Dr. Alves on 09-30-2022 SARS-CoV-2 & FLU Antigen (Rapid) Influenzae A [facility] RSV Ag EIAOrdered By: Dr. Sun martínez on 09-30-2022 RSV Ag Immune stain Ql (Tiss) [facility] Serum or plasma progesterone measurement (mass/volume)Ordered By: Cari Holman on 09-23-2022 Progesterone [Mass/Vol] 2.87 ng/mL See Comment [facility] Comment on above: Progesterone Referen ce Table: UNITS Female: Follicular 0.15 - 1.40 ng/mL Luteal 3.34 - 25.56 ng/mL Mid-luteal 4.44 - 28.03 ng/mL Postmenopausal 0.0 - 0.73 ng/mL : 1st Trimester 11.22 - 90.00 ng/mL 2nd Trimester 25.55 - 89.40 ng/mL 3rd Trimester 48.40 -422.50 ng/mL No Panel Informationon 08-25 POC Bacterial Vaginitis (Rapid) Negative [facility] Work Phone: Serum or plasma prolactin me asurement (mass/volume)on 08-25-2022 Prolactin [Mass/Vol] 15.5 ng/mL [facility] Work Phone: Comment on above: NORMAL REFERENCE RAN GES FEMALE NON- 2.2 - 30.3 ng/mL 8.1 - 347.6 ng/mL POST-MENOPAUSAL 0.7 - 31.5 ng/mL MALE 2.5 - 17.4 ng/mL No Panel Informationon 07-30 Dehydroepiandrosterone Sulfate 222.0 ug/dL 84.8-378.0 [facility] Work Phone: Miscellaneous Test See comment [facility] Work Phone: Comment on above: Sent directly to [facility] per ordering physician. Serum or plasma prolactin me asurement (mass/volume)on 07-30-2022 Prolactin [Mass/Vol] 43.7 ng/mL [facility] Work Phone: Comment on above: NORMAL REFERENCE RAN GES FEMALE NON- 2.2 - 30.3 ng/mL 8.1 - 347.6 ng/mL POST-MENOPAUSAL 0.7 - 31.5 ng/mL MALE 2.5 - 17.4 ng/mL Serum or plasma testosterone free measurement (mass/volume)on 07-30-2022 Testosterone Free [Mass/Vol] 1.2 pg/mL 0.0-4.2 [facility] Work Phone: Comment on above: Performed at: [facility] [address] [id number] Director: Roque Soriano PhD, Phone: [phone] at: [facility] [address] [id number] Director: Stefano Lopez MD, Phone: [phone] Absolute lymphocyte counton 07-08-2022 Lymphocytes Auto (Unsp spec) [#/Vol] 2.12 10*3/uL 0.83-4.51 [facility] Work Phone: [phone] Absolute reticulocyte counto n 07-08-2022 Reticulocytes (Bld) [#/Vol] 0.00 10*3/uL 0-5 [facility] Work Phone: [phone] Basophil percentageon 2021 Basophil percentage 3.5 mg/dL 2.5-4.9 [facility] Work Phone: [phone] Bilirubin [Mass/Vol] 0.40 mg/dL 0.20-1.00 [facility] Work Phone: Comment on above: For patients on eltr ombopag therapy, use of Dimension [place] TBIL is not recommended. Chloride [Moles/Vol] 105 mmol/L 98-107 [facility] Work Phone: [phone] Cholesterol [Mass/Vol] 143 mg/dL <200 [facility] Work Phone: [phone] Comment on above: <200 mg/dL Desirable 200-240 mg/dL Borderline >240 mg/dL High Risk Glucose [Mass/Vol] 95 mg/dL 74-106 [facility] Work Phone: [phone] Neutrophils (Bld) [#/Vol] 3.0 10*3/uL 2.0-7.7 [facility] Work Phone: [phone] Potassium [Moles/Vol] 3.6 mmol/L 3.5-5.1 [facility] Work Phone: [phone] Protein [Mass/Vol] 7.1 g/dL 6.4-8.2 [facility] Work Phone: [phone] Sodium [Moles/Vol] 139 mmol/L 136-145 [facility] Work Phone: [phone] Triglyceride [Mass/Vol] 69 mg/dL <199 [facility] Work Phone: Comment on above: The drugs N-Acetylcy steine and Metamizole may falsely depress this assay.Serum Triglycerides Reference Interval Normal <150 mg/dL Borderline high 150 - 199 mg/dL High 200 - 499 mg/dL Very High > or = 500 mg/dL WBC (Bld) [#/Vol] 5.6 10*3/uL 4.4-11.0 [facility] Work Phone: [phone] Bilirubin Test strip Ql (U)o n 07-08-2022 Bilirubin Ql (U) Negative Negative [facility] Work Phone: [phone] Blood erythrocytes count (nu mber/volume)on 07-08-2022 RBC (Bld) [#/Vol] 4.73 10*6/uL 4.2-5.4 [facility] Work Phone: [phone] Blood hemoglobin measurement (mass/volume)on 07-08-2022 Hemoglobin (Bld) [Mass/Vol] 13.2 g/dL 12.0-15.0 [facility] Work Phone: Blood platelet mean volumeon 07-08-2022 Platelet mean volume (Bld) [Entitic vol] 11.0 fL 6.2-12.0 [facility] Work Phone: Determination of erythrocyte mean corpuscular volume (MCV)on 07-08-2022 MCV (RBC) [Entitic vol] 86.0 fL 81-99 [facility] Work Phone: Direct bilirubinon Bilirubin.direct [Mass/Vol] 0.10 mg/dL 0.00-0.30 [facility] Work Phone: [phone] Hematocrit Auto (Bld) [Volum e fraction]on 07-08-2022 Hematocrit (Bld) [Volume fraction] 40.7 % 37-47 [facility] Work Phone: [phone] Iron measurement (mass/mass) on 07-08-2022 Iron (Unsp spec) [Mass/Mass] 65 ug/dL 50-170 [facility] Work Phone: Ketones Test strip Ql (U)on 07-08-2022 Ketones Ql (U) 5 mg/dl Negative [facility] Work Phone: Laboratory - Chemistry and C hemistry - challengeon 07-08-2022 Cobalamin (Vitamin B12) [Mass/Vol] 725 pg/mL 211-911 [facility] Work Phone: Free T4 [Mass/Vol] 1.03 ng/dL 0.76-1.46 [facility] Work Phone: ALP [Catalytic activity/Vol] 73 U/L 45-117 [facility] Work Phone: ALT [Catalytic activity/Vol] 23 U/L 13-56 [facility] Work Phone: Cholesterol.total/Dotty sterol in HDL [Mass ratio] 2.60 {ratio} [facility] Work Phone: CO2 [Moles/Vol] 27.0 mmol/L 21.0-32.0 [facility] Work Phone: Globulin (S) [Mass/Vol] 3.7 g/dL 2.2-4.2 [facility] Work Phone: [phone] Urea nitrogen/Creatinine [Mass ratio] 25.0 mg/mg 10-20 [facility] Work Phone: Laboratory - Hematology and Cell countson 07-08-2022 Erythrocyte distribution width (RBC) [Entitic vol] 41.9 fL 35.1-43.9 [facility] Work Phone: Erythrocyte distribution width (RBC) [Ratio] 13.3 % 11.6-14.6 [facility] Work Phone: MCH (RBC) [Entitic mass] 27.9 pg 27.0-32.0 [facility] Work Phone: Nucleated RBC/100 WBC (Bld) [Ratio] 0 % 0-5 [facility] Work Phone: MCHC Auto (RBC) [Mass/Vol]on 07-08-2022 MCHC (RBC) [Mass/Vol] 32.4 g/dL 32-36 [facility] Work Phone: [phone] Nitrite Test strip Ql (U)on 07-08-2022 Nitrite Ql (U) Negative Negative [facility] Work Phone: No Panel Informationon 07-08 Thyroid Stimulating Hormone (TSH) 2.03 uIU/mL 0.358-3.74 [facility] Work Phone: Vitamin D 25-Hydroxy 27.3 ng/mL [facility] Work Phone: Comment on above: Vitamin D 25(OH) Sta tus Range Deficiency <20 ng/mL (50nmol/L) Insufficiency 20 - 30 ng/mL (50 - 75 nmol/L) Sufficiency 30 - 100 ng/mL (75 - 250 nmol/L) Toxicity >100 ng/mL (>250 nmol/L) Estimated GFR (MDRD) Amer 155 mL/min >60 [facility] Work Phone: Comment on above: GFR Calc Estimated GFR (MDRD) Non-Af Amer 128 mL/min >60 [facility] Work Phone: Comment on above: Non- GFR Calc Platelets bldon 07-08-2022 Platelets (Bld) [#/Vol] 293 10*3/uL 150-450 [facility] Work Phone: Protein Test strip Ql (U)on 07-08-2022 Protein Ql (U) 15 mg/dl Negative [facility] Work Phone: Segmented neutrophils/100 WB C Auto (Bld)on 07-08-2022 Segmented neutrophils/100 WBC (Bld) 52.5 % 47-70 [facility] Work Phone: Serum or plasma albumin raad urement (mass/volume)on 07-08-2022 Albumin [Mass/Vol] 3.4 g/dL 3.2-5.0 [facility] Work Phone: Serum or plasma albumin/glob ulin mass ratioon 07-08-2022 Albumin/Globulin [Mass ratio] 0.9 {ratio} 0.9-2.4 [facility] Work Phone: Serum or plasma calcium raad urement (mass/volume)on 07-08-2022 Calcium [Mass/Vol] 8.8 mg/dL 8.5-10.1 [facility] Work Phone: Serum or plasma cholesterol in HDL measurement (mass/volume)on 07-08-2022 Cholesterol in HDL [Mass/Vol] 55 mg/dL >40 [facility] Work Phone: Comment on above: The drugs N-Acetylcy steine and Metamizole may falsely depress this assay. Reference Range HDL <40 mg/dL Low HDL Cholesterol HDL >or= 60 mg/dL High HDL Cholesterol Serum or plasma cholesterol in VLDL measurement (mass/volume)on 07-08-2022 Cholesterol in VLDL [Mass/Vol] 14 mg/dL 5-40 [facility] Work Phone: Serum or plasma cortisol thierno surement (mass/volume)on 07-08-2022 Cortisol [Mass/Vol] 17.50 ug/dL 3.44-22.45 [facility] Work Phone: Comment on above: Adult (AM) 5.27 - 22 .45 ug/dL Adult (PM) 3.44 - 16.76 ug/dLPlease note revised CORTISOL reference range effective 2019. Serum or plasma creatinine m easurement (mass/volume)on 07-08-2022 Creatinine [Mass/Vol] 0.60 mg/dL 0.55-1.02 [facility] Work Phone: Comment on above: The validity of the calculated GFR & GFRAA in patients over 70 years has not been determined. Clinical correlation is essential. Serum or plasma ferritin thierno surement (mass/volume)on 07-08-2022 Ferritin [Mass/Vol] 41 ng/mL 8-252 [facility] Work Phone: Serum or plasma low density lipoprotein (LDL) cholesterol measurement (mass/volume)on 07-08-2022 Cholesterol in LDL [Mass/Vol] 74 mg/dL 0-130 [facility] Work Phone: Serum or plasma urea nitroge n measurement (mass/volume)on 07-08-2022 Urea nitrogen [Mass/Vol] 15 mg/dL 7-18 [facility] Work Phone: Serum or plasma uric acid me asurement (mass/volume)on 07-08-2022 Urate [Mass/Vol] 4.9 mg/dL 2.6-6.0 [facility] Work Phone: Comment on above: The drugs N-Acetylcy steine and Metamizole may falsely depress this assay. Thin prep Papanicolaou smear with manual screeningon 07-08-2022 Thin prep Papanicolaou smear with manual screening 13 U/L 15-37 [facility] Work Phone: Thin prep Papanicolaou smear with manual screening 7 5-15 [facility] Work Phone: Thin prep Papanicolaou smear with manual screening 188 U/L 84-246 [facility] Work Phone: Urine blood detectionon 06-26 RBC Ql (U) 10 /ul Negative [facility] Work Phone: Urine clarityon 07-08-2022 Clarity (U) Sl. Cloudy Clear [facility] Work Phone: Urine color determinationon 07-08-2022 Color (U) Yellow Yellow [facility] Work Phone: Urine glucose detectionon Glucose Ql (U) Normal mg/dl Normal [facility] Work Phone: Urine leukocyte esterase det ection by dipstickon 07-08-2022 Leukocyte esterase Test strip Ql (U) 25 /ul Negative [facility] Work Phone: [phone] Urine pHon 07-08-2022 pH (U) 6.0 [pH] 5.0 - 8.0 [facility] Work Phone: Urine specific gravity measu rementon 07-08-2022 Specific gravity (U) [Rel density] 1.025 1.002-1.03 0 [facility] Work Phone: Urobilinogen Auto test strip Ql (U)on 07-08-2022 Urobilinogen Ql (U) Normal mg/dl Normal [facility] Work Phone: Serum or plasma choriogonado tropin detectionon 04-16-2022 HCG ( test) Ql < 1 mIU/mL <4 [facility] Work Phone: Comment on above: hCG levels with Gest ational AgeGestational Age hCG mIU/mL (IU/L)0.2 - 1 week 5 - 501-2 weeks 50 - 5002-3 weeks 100 - 72711-1 weeks 500 - 753998-5 weeks 1000 - 087987-1 weeks 36619 - 100,0006-8 weeks 84371 - 200,0002-3 months 40665 - 100,000 Basophil percentageon 2021 Chloride [Moles/Vol] 106 mmol/L 98-107 [facility] Work Phone: Glucose [Mass/Vol] 113 mg/dL 74-106 [facility] Work Phone: Comment on above: Fasting Glucose resu lt from 100 to 125 mg/dL suggests IMPAIRED HOMEOSTASIS per A.D.A. criteria. Potassium [Moles/Vol] 3.4 mmol/L 3.5-5.1 [facility] Work Phone: Sodium [Moles/Vol] 139 mmol/L 136-145 [facility] Work Phone: WBC (Bld) [#/Vol] 8.4 10*3/uL 4.4-11.0 [facility] Work Phone: Blood erythrocytes count (nu mber/volume)on 03-06-2022 RBC (Bld) [#/Vol] 4.37 10*6/uL 4.2-5.4 [facility] Work Phone: Blood hemoglobin measurement (mass/volume)on 03-06-2022 Hemoglobin (Bld) [Mass/Vol] 12.4 g/dL 12.0-15.0 [facility] Work Phone: Blood platelet mean volumeon 03-06-2022 Platelet mean volume (Bld) [Entitic vol] 11.0 fL 6.2-12.0 [facility] Work Phone: Determination of erythrocyte mean corpuscular volume (MCV)on 03-06-2022 MCV (RBC) [Entitic vol] 85.6 fL 81-99 [facility] Work Phone: [phone] Erythrocyte sedimentation ra rosanne 03-06-2022 ESR (Bld) [Velocity] 26 mm/h 0-30 [facility] Work Phone: Hematocrit Auto (Bld) [Volum e fraction]on 03-06-2022 Hematocrit (Bld) [Volume fraction] 37.4 % 37-47 [facility] Work Phone: Laboratory - Chemistry and C hemistry - challengeon 03-06-2022 CO2 [Moles/Vol] 25.0 mmol/L 21.0-32.0 [facility] Work Phone: [phone] Magnesium [Mass/Vol] 2.1 mg/dL 1.6-2.6 [facility] Work Phone: Urea nitrogen/Creatinine [Mass ratio] 20.1 mg/mg 10-20 [facility] Work Phone: Laboratory - Hematology and Cell countson 03-06-2022 Erythrocyte distribution width (RBC) [Entitic vol] 41.5 fL 35.1-43.9 [facility] Work Phone: Erythrocyte distribution width (RBC) [Ratio] 13.3 % 11.6-14.6 [facility] Work Phone: MCH (RBC) [Entitic mass] 28.4 pg 27.0-32.0 [facility] Work Phone: [phone] MCHC Auto (RBC) [Mass/Vol]on 03-06-2022 MCHC (RBC) [Mass/Vol] 33.2 g/dL 32-36 [facility] Work Phone: No Panel Informationon 03-06 Estimated GFR (MDRD) Amer 143 mL/min >60 [facility] Work Phone: Comment on above: GFR Calc Estimated GFR (MDRD) Non-Af Amer 118 mL/min >60 [facility] Work Phone: Comment on above: Non- GFR Calc Platelets bldon 03-06-2022 Platelets (Bld) [#/Vol] 342 10*3/uL 150-450 [facility] Work Phone: Serum or plasma calcium raad urement (mass/volume)on 03-06-2022 Calcium [Mass/Vol] 8.9 mg/dL 8.5-10.1 [facility] Work Phone: Serum or plasma creatinine m easurement (mass/volume)on 03-06-2022 Creatinine [Mass/Vol] 0.65 mg/dL 0.55-1.02 [facility] Work Phone: Comment on above: The validity of the calculated GFR & GFRAA in patients over 70 years has not been determined. Clinical correlation is essential. Serum or plasma urea nitroge n measurement (mass/volume)on 03-06-2022 Urea nitrogen [Mass/Vol] 13 mg/dL 7-18 [facility] Work Phone: Thin prep Papanicolaou smear with manual screeningon 03-06-2022 Thin prep Papanicolaou smear with manual screening 8 5-15 [facility] Work Phone: No Panel Informationon 11-25 D-Dimer Quantitative (PE/DVT) 0.55 FEU/ug/m 0.27-0.49 [facility] Work Phone: Comment on above: D-Dimer ELEVATED (>0 .49): Additional studies and clinicalassessments are indicated to conclude diagnosis of:Deep Vein Thrombosis (DVT) or Pulmonary Embolism (PE)RESULTS CALLED TO Emory JOHNSON RN [facility] 11/25/21 Kristi Lundy.REPORT READ BACK BY SAME. Absolute lymphocyte counton 11-21-2021 Lymphocytes Auto (Unsp spec) [#/Vol] 2.70 10*3/uL 0.83-4.51 [facility] Work Phone: Basophil percentageon 2021 Basophils/100 WBC (Bld) 0.2 % 0-1 [facility] Work Phone: Chloride [Moles/Vol] 105 mmol/L 98-107 [facility] Work Phone: Eosinophils/100 WBC (Bld) 0.9 % 0-5 [facility] Work Phone: Glucose [Mass/Vol] 106 mg/dL 74-106 [facility] Work Phone: Comment on above: Fasting Glucose resu lt from 100 to 125 mg/dL suggests IMPAIRED HOMEOSTASIS per A.D.A. criteria. Neutrophils (Bld) [#/Vol] 5.2 10*3/uL 2.0-7.7 [facility] Work Phone: Neutrophils/100 WBC (Bld) 61.4 % 47-70 [facility] Work Phone: Potassium [Moles/Vol] 3.7 mmol/L 3.5-5.1 [facility] Work Phone: Sodium [Moles/Vol] 137 mmol/L 136-145 [facility] Work Phone: WBC (Bld) [#/Vol] 8.5 10*3/uL 4.4-11.0 [facility] Work Phone: Beta hCG serum qualon 2021 Beta HCG ( test) Ql Negative [facility] Work Phone: Blood erythrocytes count (nu mber/volume)on 11-21-2021 RBC (Bld) [#/Vol] 4.72 10*6/uL 4.2-5.4 [facility] Work Phone: Blood hemoglobin measurement (mass/volume)on 11-21-2021 Hemoglobin (Bld) [Mass/Vol] 13.2 g/dL 12.0-15.0 [facility] Work Phone: Blood lymphocytes/100 leukoc yteson 11-21-2021 Lymphocytes/100 WBC (Bld) 31.9 % 19-41 [facility] Work Phone: Blood monocytes/100 leukocyt eson 11-21-2021 Monocytes/100 WBC (Bld) 5.2 % 0-10 [facility] Work Phone: [phone] Blood platelet mean volumeon 11-21-2021 Platelet mean volume (Bld) [Entitic vol] 10.8 fL 6.2-12.0 [facility] Work Phone: [phone] Determination of erythrocyte mean corpuscular volume (MCV)on 11-21-2021 MCV (RBC) [Entitic vol] 84.7 fL 81-99 [facility] Work Phone: Hematocrit Auto (Bld) [Volum e fraction]on 11-21-2021 Hematocrit (Bld) [Volume fraction] 40.0 % 37-47 [facility] Work Phone: [phone] Laboratory - Chemistry and C hemistry - challengeon 11-21-2021 CO2 [Moles/Vol] 27.0 mmol/L 21.0-32.0 [facility] Work Phone: [phone] Urea nitrogen/Creatinine [Mass ratio] 16.1 mg/mg 10-20 [facility] Work Phone: Laboratory - Hematology and Cell countson 11-21-2021 Erythrocyte distribution width (RBC) [Entitic vol] 38.8 fL 35.1-43.9 [facility] Work Phone: [phone] Erythrocyte distribution width (RBC) [Ratio] 12.6 % 11.6-14.6 [facility] Work Phone: [phone] Immature granulocytes/100 WBC (Bld) 0.400 % 0.0-0.9 [facility] Work Phone: [phone] Comment on above: IG% - Immature Granu locytes (promyelocytes, myelocytes and metamyelocytes) > 1% indicates that a LEFT SHIFT is Present. MCH (RBC) [Entitic mass] 28.0 pg 27.0-32.0 [facility] Work Phone: [phone] Nucleated RBC/100 WBC (Bld) [Ratio] 0 % 0-5 [facility] Work Phone: MCHC Auto (RBC) [Mass/Vol]on 11-21-2021 MCHC (RBC) [Mass/Vol] 33.0 g/dL 32-36 [facility] Work Phone: No Panel Informationon 11-21 D-Dimer Quantitative (PE/DVT) 0.64 FEU/ug/m 0.27-0.49 [facility] Work Phone: Comment on above: CRITICAL VALUE VERIF IED. CALLED TO WALT MI11/21/21 0809 Sejal Rogel.RESULTS READ BACK BY SAME . D-Dimer ELEVATED (>0.49): Additional studies and clinicalassessments are indicated to conclude diagnosis of:Deep Vein Thrombosis (DVT) or Pulmonary Embolism (PE) Estimated Creatinine Clearance Calc 100.03 ml/min [facility] Work Phone: Estimated GFR (MDRD) Amer 134 mL/min >60 [facility] Work Phone: Comment on above: GFR Calc Estimated GFR (MDRD) Non-Af Amer 110 mL/min >60 [facility] Work Phone: Comment on above: Non- GFR Calc Troponin I High Sensitivity < 3 pg/mL 3.0-54.0 [facility] Work Phone: Comment on above: Please Note: New Mansi t Units and Gender Specific Reference Ranges. For more information see Policy Stat Procedure [place] High Sensitivity Troponin (TNIH) and attachments. Platelets bldon 11-21-2021 Platelets (Bld) [#/Vol] 331 10*3/uL 150-450 [facility] Work Phone: Serum or plasma calcium raad urement (mass/volume)on 11-21-2021 Calcium [Mass/Vol] 8.7 mg/dL 8.5-10.1 [facility] Work Phone: Serum or plasma creatinine m easurement (mass/volume)on 11-21-2021 Creatinine [Mass/Vol] 0.68 mg/dL 0.55-1.02 [facility] Work Phone: Comment on above: The validity of the calculated GFR & GFRAA in patients over 70 years has not been determined. Clinical correlation is essential. Serum or plasma urea nitroge n measurement (mass/volume)on 11-21-2021 Urea nitrogen [Mass/Vol] 11 mg/dL 7-18 [facility] Work Phone: Thin prep Papanicolaou smear with manual screeningon 11-21-2021 Thin prep Papanicolaou smear with manual screening 5 5-15 [facility] Work Phone: Laboratory - Microbiology an d Antimicrobial susceptibilityon 11-12-2021 SARS-CoV-2 (COVID-19) RNA JAMARCUS+probe Ql (Unsp spec) Detected [facility] Work Phone: Laboratory - Microbiology an d Antimicrobial susceptibilityon 11-11-2021 SARS-CoV-2 (COVID-19) RNA JAMARCUS+probe Ql (Unsp spec) Not detected [facility] Work Phone: Gram stain for investigation of transfusion reaction Microscopic observation Gram stain Nom (Unsp spec) [facility] Work Phone: Influenza virus A and B and SARS-CoV-2 (COVID-19) Ag panel - Upper respiratory specim SARS-CoV-2 & FLU Antigen (Rapid) Influenzae A [facility] Work Phone: RSV Ag EIA RSV Ag Immune stain Ql (Tiss) [facility] Work Phone: Thin prep Papanicolaou smear with manual screening Cytopathology procedure, preparation of smear, genital source Neisseria or beta-hemolytic Streptococcus isolated. [facility] Work Phone: Thin prep Papanicolaou smear with manual screening Neisseria or beta-hemolytic Streptococcus isolated. [facility] Work Phone: Vital Signs Date Time Vital Sign Value Performing Clinician Faci lity 05-12-2025 06:47-0400 Body mass index (BMI) [Ratio] 42.7 kg/m2 Lala TRIPLETT Work Phone: [facility] 05-12-2025 06:47-0400 Body weight 109.31 kg Lala Ybarra NP-C Work Phone: [facility] 05-12-2025 06:47-0400 Diastolic blood pressure 84 mm[Hg] Lala Ybarra [employer] Work Phone: [facility] 05-12-2025 06:47-0400 Heart rate 80 /min Lala Ybarra [employer] Work Phone: [facility] 05-12-2025 06:47-0400 Respiratory rate 18 /min Lala Ybarra [employer] Work Phone: [facility] 05-12-2025 06:47-0400 SaO2% (BldA) [Mass fraction] 100 % Lala Ybarra [employer] Work Phone: [facility] 05-12-2025 06:47-0400 Systolic blood pressure 125 mm[Hg] Lala Ybarra [employer] Work Phone: [facility] 03-15-2025 09:26-0400 Body weight 115.21 kg Scottie Chance MD Work Phone: [facility] 03-15-2025 09:26-0400 Diastolic blood pressure 86 mm[Hg] Scottie Chance MD Work Phone: [facility] 03-15-2025 09:26-0400 Systolic blood pressure 136 mm[Hg] Scottie Chance MD Work Phone: [facility] 03-08-2025 08:44-0400 Body weight 115.67 kg Scottie Chance MD Work Phone: [facility] 03-08-2025 08:44-0400 Diastolic blood pressure 82 mm[Hg] Scottie Chance MD Work Phone: [facility] 03-08-2025 08:44-0400 Systolic blood pressure 122 mm[Hg] Scottie Chance MD Work Phone: [facility] 01-27-2025 15:33-0400 Body height 160.02 cm Lala Ybarra [employer] Work Phone: 9(025)418-634756 [place] [address] 01-27-2025 15:33-0400 Body mass index (BMI) [Ratio] 45 kg/m2 Lala Ybarra [employer] Work Phone: 4(061)377-571656 [place] [address] 01-27-2025 15:33-0400 Body weight 115.32 kg Lala Ybarra [employer] Work Phone: 9(560)308-255456 [place] [address] 01-27-2025 15:33-0400 Diastolic blood pressure 76 mm[Hg] Lala Ybarra [employer] Work Phone: 3(250)976-397213 [place] [address] 01-27-2025 15:33-0400 Systolic blood pressure 138 mm[Hg] Lala Ybarra [employer] Work Phone: 2(450)279-842913 [place] [address] 01-24-2025 13:37-0400 Body mass index (BMI) [Ratio] 44.9 kg/m2 Lala Ybarra [employer] Work Phone: 0(724)540-439313 [place] [address] 01-24-2025 13:37-0400 Body weight 115.21 kg Lala Ybarra [employer] Work Phone: 6(461)546-407413 [place] [address] 01-24-2025 13:37-0400 Diastolic blood pressure 76 mm[Hg] Lala Ybarra [employer] Work Phone: 3(831)867-486113 [place] [address] 01-24-2025 13:37-0400 Systolic blood pressure 122 mm[Hg] Lala Ybarra [employer] Work Phone: 3(541)014-859213 [place] [address] 12-07-2024 09:08-0500 Body temperature 98.5 [degF] Lala Ybarra [employer] Work Phone: 6(828)253-313913 [place] [address] 12-07-2024 09:08-0500 Diastolic blood pressure 80 mm[Hg] Lala Ybarra [employer] Work Phone: 4(308)638-639913 [place] [address] 12-07-2024 09:08-0500 Heart rate 88 /min Lala Ybarra [employer] Work Phone: 2(176)837-164113 [place] [address] 12-07-2024 09:08-0500 Respiratory rate 16 /min Lala Ybarra [employer] Work Phone: 7(323)828-637613 [place] [address] 12-07-2024 09:08-0500 SaO2% (BldA) [Mass fraction] 99 % Lala Ybarra [employer] Work Phone: [facility] 12-07-2024 09:08-0500 Systolic blood pressure 126 mm[Hg] Lala Ybarra [employer] Work Phone: 4(792)301-008756 [place] [address] 11-02-2024 07:03-0500 Body temperature 98.1 [degF] Lala Ybarra [employer] Work Phone: 6(082)776-577756 [place] [address] 11-02-2024 07:03-0500 Diastolic blood pressure 72 mm[Hg] Lala Ybarra [employer] Work Phone: 8(378)214-906856 [place] [address] 11-02-2024 07:03-0500 Heart rate 94 /min Lala Ybarra [employer] Work Phone: 1(979)695-641856 [place] [address] 11-02-2024 07:03-0500 Respiratory rate 16 /min Lala Ybarra [employer] Work Phone: 1(734)314-496856 [place] [address] 11-02-2024 07:03-0500 SaO2% (BldA) [Mass fraction] 98 % Lala Ybarra [employer] Work Phone: 9(245)326-203056 [place] [address] 11-02-2024 07:03-0500 Systolic blood pressure 120 mm[Hg] Lala Ybarra [employer] Work Phone: [facility] 01-29-2024 12:27-0400 Diastolic blood pressure 80 mm[Hg] Dr. Francisco Stock Work Phone: [facility] 01-29-2024 12:27-0400 Systolic blood pressure 118 mm[Hg] Dr. Francisco Stock Work Phone: [facility] 01-29-2024 12:17-0400 Body height 157.[address] Francisco Stock Work Phone: [facility] 01-29-2024 12:17-0400 Body mass index (BMI) [Ratio] 38.2 kg/m2 Dr. Francisco Stock Work Phone: 2(939)446-050692 [place] [address] 01-29-2024 12:17-0400 Body weight 94.[address] Francisco Stock Work Phone: 9(088)599-317992 [place] [address] 01-29-2024 12:17-0400 Heart rate 86 /min Dr. Francisco Stock Work Phone: 9(441)969-812592 [place] [address] 12-29-2023 11:48-0500 Body mass index (BMI) [Ratio] 37.5 kg/m2 Dr. Francisco Stock Work Phone: 2(547)787-060971 [place] [address] 12-29-2023 11:48-0500 Body weight 92.[address] Francisco Stock Work Phone: 9(978)516-567071 [place] [address] 12-29-2023 11:48-0500 Diastolic blood pressure 80 mm[Hg] Dr. Francisco Stock Work Phone: 4(857)698-714771 [place] [address] 12-29-2023 11:48-0500 Heart rate 88 /min Dr. Francisco Stock Work Phone: 1(448)826-858592 [place] [address] 12-29-2023 11:48-0500 Systolic blood pressure 128 mm[Hg] Dr. Francisco Stock Work Phone: 4(849)475-320071 [place] [address] 12-04-2023 11:04-0500 Body height 157.[address] Panda Stock Work Phone: 9(605)834-653171 [place] [address] 12-04-2023 11:04-0500 Body mass index (BMI) [Ratio] 38.2 kg/m2 Dr. Panda Stock Work Phone: 8(974)627-945692 [place] [address] 12-04-2023 11:04-0500 Body weight 94.[address] Panda Stock Work Phone: 1(172)217-955271 [place] [address] 12-04-2023 11:04-0500 Diastolic blood pressure 78 mm[Hg] Dr. Panda Stock Work Phone: 3(845)855-032892 [place] [address] 12-04-2023 11:04-0500 Heart rate 82 /min Dr. Panda Stock Work Phone: 3(708)381-457533 [address] 12-04-2023 11:04-0500 Systolic blood pressure 121 mm[Hg] Dr. Panda Stock Work Phone: 0(283)620-809492 [place] [address] 11-02-2023 13:51-0500 Body mass index (BMI) [Ratio] 39.2 kg/m2 Dr. Panda Stock Work Phone: 0(773)035-681133 [address] 11-02-2023 13:51-0500 Body weight 97.[address] Panda Stock Work Phone: 3(588)604-685433 [address] 11-02-2023 13:51-0500 Diastolic blood pressure 80 mm[Hg] Dr. Panda Stock Work Phone: 5(970)911-223533 [address] 11-02-2023 13:51-0500 Heart rate 90 /min Dr. Panda Stock Work Phone: 5(413)930-663733 [address] 11-02-2023 13:51-0500 Respiratory rate 16 /min Dr. Panda Stock Work Phone: 0(658)906-805333 [address] 11-02-2023 13:51-0500 SaO2% (BldA) [Mass fraction] 92 % Dr. Panda Stock Work Phone: 8(490)227-603433 [address] 11-02-2023 13:51-0500 Systolic blood pressure 116 mm[Hg] Dr. Panda Stock Work Phone: 2(402)979-569992 [place] [address] 10-05-2023 14:01-0500 Body mass index (BMI) [Ratio] 38.8 kg/m2 Dr. Panda Stock Work Phone: 4(282)131-343533 [address] 10-05-2023 14:01-0500 Body weight 96.[address] Panda Stock Work Phone: 9(007)691-414633 [address] 10-05-2023 14:01-0500 Diastolic blood pressure 68 mm[Hg] Dr. Panda Stock Work Phone: 5(446)294-133933 [address] 10-05-2023 14:01-0500 Systolic blood pressure 118 mm[Hg] Dr. Panda Stock Work Phone: [facility] 09-10-2023 15:28-0500 Body height 157.[address] Panda Stock Work Phone: [facility] 09-10-2023 15:21-0500 Body mass index (BMI) [Ratio] 39.2 kg/m2 Dr. Panda Stock Work Phone: 1(767)477-510571 [place] [address] 09-10-2023 15:21-0500 Body weight 97.[address] Panda Stock Work Phone: 2(247)687-951271 [place] [address] 09-10-2023 15:21-0500 Diastolic blood pressure 78 mm[Hg] Dr. Panda Stock Work Phone: 3(747)856-918971 [place] [address] 09-10-2023 15:21-0500 Systolic blood pressure 98 mm[Hg] Dr. Pnada Stock Work Phone: 7(557)926-868271 [place] [address] 08-13-2023 14:25-0400 Body temperature 97.2 [degF] Dr. Panda Stock Work Phone: 8(907)982-689233 [address] 08-13-2023 14:25-0400 Diastolic blood pressure 82 mm[Hg] Dr. Panda Stock Work Phone: 7(261)872-168592 [place] [address] 08-13-2023 14:25-0400 Heart rate 102 /min Dr. Panda Stock Work Phone: 2(764)213-202092 [place] [address] 08-13-2023 14:25-0400 Respiratory rate 17 /min Dr. Panda Stock Work Phone: 2(626)455-238292 [place] [address] 08-13-2023 14:25-0400 SaO2% (BldA) [Mass fraction] 95 % Dr. Panda Stock Work Phone: 8(238)725-065792 [place] [address] 08-13-2023 14:25-0400 Systolic blood pressure 127 mm[Hg] Dr. Panda Stock Work Phone: 5(711)871-742133 [address] 08-13-2023 13:44-0400 Body mass index (BMI) [Ratio] 39.3 kg/m2 Dr. Panda Stock Work Phone: [facility] 08-13-2023 13:44-0400 Body weight 97.[address] Panda Stock Work Phone: [facility] 08-13-2023 13:44-0400 Diastolic blood pressure 76 mm[Hg] Dr. Panda Stock Work Phone: [facility] 08-13-2023 13:44-0400 Heart rate 90 /min Dr. Panda Stock Work Phone: [facility] 08-13-2023 13:44-0400 Systolic blood pressure 123 mm[Hg] Dr. Panda Stock Work Phone: [facility] 07-17-2023 13:49-0400 Body mass index (BMI) [Ratio] 39.9 kg/m2 Dr. Panda Stock Work Phone: [facility] 07-17-2023 13:49-0400 Body weight 98.[address] Panda Stock Work Phone: [facility] 07-17-2023 13:49-0400 Diastolic blood pressure 70 mm[Hg] Dr. Panda Stock Work Phone: [facility] 07-17-2023 13:49-0400 Heart rate 94 /min Dr. Panda Stock Work Phone: [facility] 07-17-2023 13:49-0400 Systolic blood pressure 108 mm[Hg] Dr. Panda Stock Work Phone: [facility] 06-19-2023 10:52-0400 Body mass index (BMI) [Ratio] 40.1 kg/m2 Dr. Panda Stock Work Phone: [facility] 06-19-2023 10:52-0400 Body weight 99.[address] Panda Stock Work Phone: [facility] 06-19-2023 10:52-0400 Diastolic blood pressure 82 mm[Hg] Dr. Panda Stock Work Phone: 6(033)153-545392 [place] [address] 06-19-2023 10:52-0400 Systolic blood pressure 122 mm[Hg] Dr. Panda Stock Work Phone: 9(130)963-298792 [place] [address] 01-26-2023 16:35-0400 Body height 157.[address] Panda Stock Work Phone: 2(878)794-814733 [address] 01-26-2023 16:32-0400 Body mass index (BMI) [Ratio] 43 kg/m2 Dr. Panda Stock Work Phone: 3(501)142-903071 [place] [address] 01-26-2023 16:32-0400 Body weight 106.[address] Panda Stock Work Phone: 5(536)757-289371 [place] [address] 01-26-2023 16:32-0400 Diastolic blood pressure 82 mm[Hg] Dr. Panda Stock Work Phone: 5(007)031-750133 [address] 01-26-2023 16:32-0400 Systolic blood pressure 133 mm[Hg] Dr. Panda Stock Work Phone: 5(136)599-344471 [place] [address] 12-22-2022 13:27-0500 Body height 157.[address] Panda Stock Work Phone: 9(908)284-396971 [place] [address] 12-22-2022 13:21-0500 Body mass index (BMI) [Ratio] 42.9 kg/m2 Dr. Panda Stock Work Phone: 4(842)031-882492 [place] [address] 12-22-2022 13:21-0500 Body weight 106.[address] Panda Stock Work Phone: 6(832)726-020171 [place] [address] 12-22-2022 13:21-0500 Diastolic blood pressure 82 mm[Hg] Dr. Panda Stock Work Phone: 0(970)454-934433 [address] 12-22-2022 13:21-0500 Systolic blood pressure 122 mm[Hg] Dr. Panda Stock Work Phone: 9(608)177-579333 [address] 09-30-2022 08:02-0500 Diastolic blood pressure 76 mm[Hg] Dr. Panda Stock Work Phone: [facility] 09-30-2022 08:02-0500 Heart rate 71 /min Dr. Panda Stock Work Phone: [facility] 09-30-2022 08:02-0500 Respiratory rate 15 /min Dr. Panda Stock Work Phone: 3(931)765-429533 [address] 09-30-2022 08:02-0500 SaO2% (BldA) [Mass fraction] 98 % Dr. Panda Stock Work Phone: 0(494)518-050533 [address] 09-30-2022 08:02-0500 Systolic blood pressure 128 mm[Hg] Dr. Panda Stock Work Phone: 3(360)703-598533 [address] 09-30-2022 06:29-0500 Body height 157.[address] Panda Stock Work Phone: 0(426)999-931392 [place] [address] Work Phone: 09-30-2022 06:29-0500 Body mass index (BMI) [Ratio] 41 kg/m2 Dr. Panda Stock Work Phone: 3(962)069-708633 [address] 09-30-2022 06:29-0500 Body temperature 98.8 [degF] Dr. Panda Stock Work Phone: 8(861)114-186392 [place] [address] 09-30-2022 06:29-0500 Body weight 101.[address] Panda Stock Work Phone: 3(161)480-288033 [address] 09-10-2022 09:10-0500 Body mass index (BMI) [Ratio] 39.9 kg/m2 Dr. Panda Stock Work Phone: 5(650)354-646433 [address] 09-10-2022 09:10-0500 Body weight 99.[address] Panda Stock Work Phone: 2(058)017-420192 [place] [address] 09-10-2022 09:10-0500 Diastolic blood pressure 78 mm[Hg] Dr. Panda Stock Work Phone: [facility] 09-10-2022 09:10-0500 Systolic blood pressure 120 mm[Hg] Dr. Panda Stock Work Phone: [facility] 08-25-2022 15:18-0400 Body height 157.[address] Panda Stock Work Phone: [facility] Work Phone: 08-25-2022 15:14-0400 Body mass index (BMI) [Ratio] 40.3 kg/m2 Dr. Panda Stock Work Phone: [facility] Work Phone: 08-25-2022 15:14-0400 Body weight 99.[address] Panda Stock Work Phone: [facility] Work Phone: 08-25-2022 15:14-0400 Diastolic blood pressure 82 mm[Hg] Dr. Panda Stock Work Phone: [facility] Work Phone: 08-25-2022 15:14-0400 Systolic blood pressure 128 mm[Hg] Dr. Panda Stock Work Phone: [facility] Work Phone: 08-05-2022 13:51-0400 Body height 157.[address] Panda Stock Work Phone: [facility] Work Phone: 08-05-2022 13:51-0400 Body mass index (BMI) [Ratio] 40.5 kg/m2 Dr. Panda Stock Work Phone: [facility] Work Phone: 08-05-2022 13:51-0400 Body weight 100.[address] Panda Stock Work Phone: [facility] Work Phone: 08-05-2022 13:51-0400 Diastolic blood pressure 79 mm[Hg] Dr. Panda Stock Work Phone: [facility] Work Phone: 08-05-2022 13:51-0400 Heart rate 101 /min Dr. Panda Stock Work Phone: [facility] Work Phone: 08-05-2022 13:51-0400 Systolic blood pressure 122 mm[Hg] Dr. Pnada Stock Work Phone: [facility] Work Phone: 07-08-2022 13:46-0400 Body height 157.[address] Panda Stock Work Phone: [facility] Work Phone: 07-08-2022 13:46-0400 Body mass index (BMI) [Ratio] 41.5 kg/m2 Dr. Panda Stock Work Phone: [facility] Work Phone: 07-08-2022 13:46-0400 Body weight 103.[address] Panda Stock Work Phone: [facility] Work Phone: 07-08-2022 13:46-0400 Diastolic blood pressure 77 mm[Hg] Dr. Panda Stock Work Phone: [facility] Work Phone: 07-08-2022 13:46-0400 Systolic blood pressure 116 mm[Hg] Dr. Panda Stock Work Phone: [facility] Work Phone: 06-09-2022 13:54-0400 Body mass index (BMI) [Ratio] 43.7 kg/m2 Dr. Panda Stock Work Phone: [facility] Work Phone: 06-09-2022 13:54-0400 Body weight 108.[address] Panda Stock Work Phone: [facility] Work Phone: 06-09-2022 13:54-0400 Diastolic blood pressure 72 mm[Hg] Dr. Panda Stock Work Phone: [facility] Work Phone: 06-09-2022 13:54-0400 Systolic blood pressure 120 mm[Hg] Dr. Panda Stock Work Phone: [facility] Work Phone: 01-24-2022 08:33-0400 Body height 157.[address] Panda Stock Work Phone: [facility] Work Phone: 01-24-2022 08:33-0400 Body mass index (BMI) [Ratio] 41.8 kg/m2 Dr. Panda Stock Work Phone: [facility] Work Phone: 01-24-2022 08:33-0400 Body weight 103.[address] Panda Stock Work Phone: [facility] Work Phone: 01-24-2022 08:33-0400 Diastolic blood pressure 76 mm[Hg] Dr. Panda Stock Work Phone: [facility] Work Phone: 01-24-2022 08:33-0400 Heart rate 77 /min Dr. Panda Stock Work Phone: [facility] Work Phone: 01-24-2022 08:33-0400 Respiratory rate 16 /min Dr. Panda Stock Work Phone: [facility] Work Phone: 01-24-2022 08:33-0400 Systolic blood pressure 120 mm[Hg] Dr. Panda Stock Work Phone: [facility] Work Phone: 01-24-2022 08:33-0400 Body height 157.[address] Panda Stock Work Phone: [facility] Work Phone: 01-24-2022 08:33-0400 Body mass index (BMI) [Ratio] 41.8 kg/m2 Dr. Panda Stock Work Phone: [facility] Work Phone: 01-24-2022 08:33-0400 Body weight 103.[address] Panda Stock Work Phone: [facility] Work Phone: 01-24-2022 08:33-0400 Diastolic blood pressure 76 mm[Hg] Dr. Panda Stock Work Phone: [facility] Work Phone: 01-24-2022 08:33-0400 Heart rate 77 /min Dr. Panda Stock Work Phone: [facility] Work Phone: 01-24-2022 08:33-0400 Respiratory rate 16 /min Dr. Panda Stock Work Phone: [facility] Work Phone: 01-24-2022 08:33-0400 Systolic blood pressure 120 mm[Hg] Dr. Panda Stock Work Phone: [facility] Work Phone: 11-21-2021 10:17-0500 Body temperature 98.4 [degF] Dr. Panda Stock Work Phone: [facility] Work Phone: 11-21-2021 10:17-0500 Diastolic blood pressure 82 mm[Hg] Dr. Panda Stock Work Phone: [facility] Work Phone: 11-21-2021 10:17-0500 Heart rate 60 /min Dr. Panda Stock Work Phone: [facility] Work Phone: 11-21-2021 10:17-0500 Respiratory rate 14 /min Dr. Panda Stock Work Phone: [facility] Work Phone: 11-21-2021 10:17-0500 SaO2% (BldA) [Mass fraction] 97 % Dr. Panda Stock Work Phone: [facility] Work Phone: 11-21-2021 10:17-0500 Systolic blood pressure 124 mm[Hg] Dr. Panda Stock Work Phone: [facility] Work Phone: 11-21-2021 06:18-0500 Body mass index (BMI) [Ratio] 40.7 kg/m2 Dr. Panda Stock Work Phone: [facility] Work Phone: 11-21-2021 06:18-0500 Body weight 101.[address] Panda Stock Work Phone: [facility] Work Phone: 11-16-2021 11:03-0500 Body temperature 98.1 [degF] Dr. Panda Stock Work Phone: [facility] Work Phone: 11-16-2021 11:03-0500 Diastolic blood pressure 67 mm[Hg] Dr. Panda Stock Work Phone: [facility] Work Phone: 11-16-2021 11:03-0500 Heart rate 67 /min Dr. Panda Stock Work Phone: [facility] Work Phone: 11-16-2021 11:03-0500 Respiratory rate 16 /min Dr. Panda Stock Work Phone: [facility] Work Phone: 11-16-2021 11:03-0500 SaO2% (BldA) [Mass fraction] 100 % Dr. Panda Stock Work Phone: [facility] Work Phone: 11-16-2021 11:03-0500 Systolic blood pressure 115 mm[Hg] Dr. Panda Stock Work Phone: [facility] Work Phone: 11-16-2021 09:19-0500 Body mass index (BMI) [Ratio] 35.6 kg/m2 Dr. Panda Stock Work Phone: [facility] Work Phone: 11-16-2021 09:19-0500 Body weight 88.[address] Panda Stock Work Phone: [facility] Work Phone: Encounters Encounter Date Encounter Type Care Provider Facility Start: 08-16-2025 ambulatory Zebulun Beam VSC Facili ty:[facility] Start: 07-12-2025 ambulatory Zebulun Beam VSC Facili ty:[facility] Start: 05-30-2025 Non-patient / Non-visit Dr. Rob Olmedo MD -[facility] Start: 05-30-2025 End: 05-30-2025 ambulatory Lala Ybarra NP-C Work Phone: -[facility] Start: 05-30-2025 End: 05-30-2025 Patient encounter procedure Jannette PAINTING -[facility] Work Phone: Start: 05-30-2025 End: 05-30-2025 ambulatory Lala Ybarra VSC Facility:[facility] Start: 05-12-2025 End: 05-12-2025 Patient encounter procedure Jannette PAINTING -[facility] Work Phone: Start: 05-12-2025 End: 05-12-2025 ambulatory Lala Ybarra [employer]-C Work Phone: -[facility] Start: 04-13-2025 End: 04-13-[address] Cora Saeed [place] -[facility] Work Phone: Start: 04-13-2025 End: 04-13-2025 ambulatory Lala Ybarra [employer]-C Work Phone: [facility] Work Phone: Start: 04-05-2025 End: 04-05-2025 ambulatory Lala Ybarra [employer]-C Work Phone: [facility] Work Phone: Start: 04-05-2025 End: 04-05-2025 Patient encounter procedure [facility] Lala Ybarra NP-C -Laboratory Jaclyn Arechiga Start: 04-05-2025 End: 04-05-2025 ambulatory Lala Ybarra [facility] Facility:[facility] Start: 03-27-2025 End: 03-27-2025 Telephone encounter Scottie Chance MD Work Phone: OB/Gynecology Start: 03-22-2025 End: 05-22-2025 Follow-up encounter Johanna Thapa MD Work Phone: OB/Gynecology Start: 03-15-2025 End: 03-15-2025 Patient encounter procedure Scottie Chance MD Work Phone: OB/Gynecology Comment on above: Pap smear of cervix with ASCUS, cannot exclude HGSIL (Primary Dx) Start: 03-15-2025 End: 03-15-2025 ambulatory SCOTTIE CHANCE Facility:[facility] Start: 03-08-2025 End: 03-08-2025 ambulatory SCOTTIE CHANCE Facility:[facility] Start: 03-08-2025 End: 03-08-2025 Patient encounter procedure Scottie Chance MD Work Phone: OB/Gynecology Comment on above: Pap smear of cervix with ASCUS, cannot exclude HGSIL (Primary Dx) Start: 03-03-2025 ambulatory Lala Ybarra [facility] Fa cility:[facility] Start: 01-27-2025 End: 01-27-2025 Patient encounter procedure Nayely Gregg CNM -[facility] Work Phone: Start: 01-27-2025 End: 01-27-20[facility] Work Phone: [facility] Work Phone: Start: 01-27-2025 End: 01-27-2025 ambulatory [facility] Facility:[facility] Start: 01-24-2025 End: 01-24-[address] Cora Saeed [place] -[facility] Work Phone: Start: 01-24-2025 End: 01-24-2025 ambulatory [facility] Facility:[facility] Start: 12-29-2024 End: 12-29-2024 Patient encounter procedure Demario Chekobethanie [employer]PER-C -[facility] Work Phone: Start: 12-29-2024 End: 12-29-2024 ambulatory [facility] Facility:[facility] Start: 11-02-2024 End: 11-02-2024 Patient encounter procedure Feliciano Echavarria PA -[facility] Work Phone: Start: 11-02-2024 End: 11-02-2024 ambulatory [facility] Facility:[facility] Start: 10-06-2024 End: 10-06-2024 Patient encounter procedure Vivienne East DO -Laboratory, [facility] Start: 10-06-2024 End: 10-06-2024 ambulatory [facility] Facility:[facility] Start: 09-10-2024 End: 09-10-2024 ambulatory [facility] Facility:[facility] Start: 02-03-2024 End: 02-03-[address] Francisco Stock Work Phone: [facility] Work Phone: Start: 02-03-2024 End: 02-03-[address] Francisco Stock Work Phone: [facility]-Laboratory Work Phone: Start: 01-29-2024 End: 01-29-[address] Francisco Stock Work Phone: [facility] Work Phone: Start: 01-05-2024 End: 01-05-[address] Francisco Stock Work Phone: [facility] Work Phone: Start: 12-30-2023 End: 12-30-[address] Francisco Stock Work Phone: [facility] Work Phone: Start: 12-29-2023 End: 12-29-[address] Francisco Stock Work Phone: [facility] Work Phone: Start: 12-24-2023 Non-patient / Non-visit Dr. Francisco Stock Work Phone: [facility] Work Phone: Start: 12-24-2023 End: 12-24-[address] Panda Stock Work Phone: [facility] Work Phone: Start: 12-23-2023 End: 12-23-[address] Panda Stock Work Phone: [facility] Work Phone: Start: 12-23-2023 End: 12-23-[address] Panda Stock Work Phone: [facility]-Radiology, [facility] Work Phone: Start: 12-17-2023 End: 12-17-[address] Panda Stock Work Phone: [facility] Work Phone: Start: 12-04-2023 End: 12-04-[address] Panda Stock Work Phone: [facility] Work Phone: Start: 11-02-2023 End: 11-02-[address] Panda Stock Work Phone: [facility] Work Phone: Start: 10-05-2023 End: 10-05-[address] Panda Stock Work Phone: [facility] Work Phone: Start: 09-29-2023 End: 09-29-[address] Panda Stock Work Phone: [facility] Work Phone: Start: 09-10-2023 End: 09-10-[address] Panda Stock Work Phone: [facility] Work Phone: Start: 09-10-2023 End: 09-10-[address] Panda Stock Work Phone: [facility] Work Phone: Start: 08-13-2023 End: 08-13-[address] Panda Stock Work Phone: [facility] Work Phone: Start: 07-17-2023 End: 07-17-[address] Panda Stock Work Phone: [facility] Work Phone: Start: 06-22-2023 End: 06-22-[address] Panda Stock Work Phone: [facility] Work Phone: Start: 06-19-2023 End: 06-19-[address] Panda Stock Work Phone: [facility] Work Phone: Start: 06-18-[address] Lawson Stock Work Phone: [facility] Start: 01-29-2023 End: 01-29-[address] Panda Stock Work Phone: [facility] Work Phone: Start: 01-29-2023 End: 01-29-[address] Panda Stock Work Phone: [facility] Start: 01-27-2023 End: 01-27-[address] Panda Stock Work Phone: [facility] Work Phone: Start: 01-27-2023 End: 01-27-[address] Panda Stock Work Phone: [facility]-Laboratory Start: 01-26-2023 End: 01-26-[address] Panda Stock Work Phone: [facility] Start: 12-25-2022 End: 12-25-[address] Panda Stock Work Phone: [facility] Work Phone: Start: 12-25-2022 End: 12-25-[address] Panda Stock Work Phone: [facility] Start: 12-22-2022 End: 12-22-[address] Panda Stock Work Phone: [facility] Start: 12-18-2022 End: 12-18-[address] Panda Stock Work Phone: [facility] Start: 11-18-2022 Non-patient / Non-visit Dr. Panda Stock Work Phone: [facility] Start: 11-11-2022 End: 11-11-[address] Panda Stock Work Phone: [facility], [facility] Start: 09-30-2022 End: 09-30-2022 Emergency department patient visit Dr. Panda Stock Work Phone: [facility]-Emergency Department Start: 09-23-2022 End: 09-23-[address] Panda Stock Work Phone: [facility] Work Phone: Start: 09-23-2022 End: 09-23-[address] Panda Stock Work Phone: [facility]-Laboratory Start: 09-10-2022 End: 09-10-[address] Panda Stock Work Phone: [facility] Start: 08-28-2022 End: 08-28-[address] Panda Stock Work Phone: [facility] Start: 08-25-2022 End: 08-25-[address] Panda Stock Work Phone: [facility] Start: 08-25-2022 End: 08-25-[address] Panda Stock Work Phone: [facility] Work Phone: Start: 08-25-2022 End: 08-25-[address] Panda Stock Work Phone: [facility]-Laboratory Start: 08-19-2022 End: 08-19-[address] Panda Stock Work Phone: [facility] Work Phone: Start: 08-19-2022 End: 08-19-[address] Panda Stock Work Phone: [facility], [facility] Start: 08-07-2022 End: 08-07-[address] Panda Stock Work Phone: [facility] Start: 08-05-2022 End: 08-05-[address] Panda Stock Work Phone: [facility] Start: 07-30-2022 End: 07-30-[address] Panda Stock Work Phone: [facility] Work Phone: Start: 07-30-2022 End: 07-30-[address] Panda Stock Work Phone: [facility]-Laboratory Start: 07-08-2022 End: 07-08-[address] Panda Stock Work Phone: [facility] Start: 07-08-2022 End: 07-08-[address] Panda Stock Work Phone: [facility] Work Phone: Start: 07-08-2022 End: 07-08-[address] Panda Stock Work Phone: [facility]-Laboratory Start: 07-08-[address] Lawson Stock Work Phone: [facility] Start: 06-09-2022 End: 06-09-[address] Panda Stock Work Phone: [facility] Start: 05-13-[address] Lawson Stock Work Phone: [facility] Start: 04-17-2022 End: 04-17-[address] Panda Stock Work Phone: [facility] Start: 04-16-2022 End: 04-16-[address] Panda Stock Work Phone: [facility] Start: 04-01-2022 End: 04-01-[address] Panda Stock Work Phone: [facility] Start: 03-06-2022 End: 03-06-[address] Panda Stock Work Phone: [facility] Start: 02-27-[address] Lawson Stock Work Phone: [facility] Start: 01-24-2022 End: 01-24-[address] Panda Stock Work Phone: [facility] Start: 01-20-2022 End: 01-20-[address] Panda Stock Work Phone: [facility] Start: 12-12-2021 End: 12-12-[address] Panda Stock Work Phone: [facility] Start: 12-02-2021 End: 12-02-[address] Panda Stock Work Phone: [facility] Start: 11-25-2021 End: 11-25-[address] Panda Stock Work Phone: [facility]-Laboratory, [facility] Start: 11-21-2021 End: 11-21-2021 Emergency department patient visit Dr. Panda Stock Work Phone: [facility]-Emergency Department Start: 11-16-2021 End: 11-16-[address] Panda Stock Work Phone: [facility]-Medical Surgical 3 Outp Start: 11-12-2021 End: 11-12-[address] [facility] Start: 11-11-2021 End: 11-11-[address] Panda Stock Work Phone: [facility] Procedures Date Procedure Procedure Detail Performing Clinician Start: 04-05-2025 Methadone measurement, urine Lala Ybarra WIRE FRAME DIPPER-C Work Phone: Start: 03-15-2025 Level iv surg pathol ogy gross&microscopic exam Scottie Chance MD Work Phone: Start: 03-15-2025 UA DIP,URINE HCG (POC) Scottie Chance MD Work Phone: Start: 01-27-2025 Liquid based cervica l cytology screening Lala Ybarra WIRE FR[employer] DIPPER-C Work Phone: Comment on above: EPITHELIAL CELL ABNO RMALITY.ATYPICAL SQUAMOUS CELLS, CANNOT EXCLUDE HIGH-GRADE SQUAMOUSINTRAEPITHELIAL LESION (ASC-H). This liquid based Th inPrep(R) pap test was screened withthe use of an image guided system. The HPV DNA reflex c riteria were not met with this specimenresult therefore, no HPV testing was performed.Performed at: [address] [id number] Director: Cortney Vargas MD, Phone: [phone] Start: 12-23-2023 X-ray of lumbosacral spine Dr. [...] DTaP,Tdap,Td Vaccine (7 - Td or Tdap) [facility] Start: 06-26-2025 Influenza vaccination Influenza Vaccine (#1) [facility] Start: 03-15-2025 End: 03-15-2025 Patient encounter procedure 03/15/2025 9:30 AM EDT Office Visit OB/Gynecology [address] [place] [address] Scottie Chance MD [address] [place] [address] Pap smear of cervix with ASCUS, cannot exclude HGSIL [R87.611] OB/Gynecology Comment on above: Pap smear of cervix with ASCUS, cannot e xclude HGSIL [R87.611] Start: 01-27-2025 Liquid based cervical cytology screening [facility] Start: 06-26-2024 Covid-19 Vaccine ( season) Covid-19 Vaccine () [facility] Start: 07-30-2022 Procedure [facility] Work Phone: Start: 02-21-2017 Screening for malignant neoplasm of cervix Cervical Cancer Screening [facility] Start: 02-21-2014 Anxiety Screening Anxiety Screening [facility] Start: 02-21-2014 Depression Screening Depression Screening [facility] Start: 02-21-2014 Hepatitis C screening Hepatitis C Screening [facility] Start: 02-21-2014 HIV screening HIV Screening [facility] COLPOSCOPY COLPOSCOPY Procedures Routine Pap smear of cervix with ASCUS, cannot exclude HGSIL Ordered: 03/08/2025 [facility] Work Phone: Comment on above: Ordered: 03/08/2025 COLPOSCOPY COLPOSCOPY Procedures Routine Pap smear of cervix with ASCUS, cannot exclude HGSIL Ordered: 03/15/2025 [facility] Work Phone: Comment on above: Ordered: 03/15/2025 Dehydroepiandrostero ne sulfate (DHEA-S) [Mass/volume] in Serum or Plasma [facility] Work Phone: Path report.final Dx Spec [facility] Patient Education [facility] Work Phone: Patient referral [facility] Work Phone: Procedure [facility] Work Phone: Prolactin [Mass/volu me] in Serum or Plasma [facility] Work Phone: Testosterone Free [M ass/volume] in Serum or Plasma [facility] Work Phone: [facility] Immunizations Immunization Date Immunization Notes Care Provider Pam andino 09-08-2024 influenza, seasonal, injectable, preservative free Lala Ybarra [employer] FR[employer] D[employer]PER-C Work Phone: [facility] 09-08-2024 influenza virus vaccine, unspecified formulation Johanna Thapa MD Work Phone: [facility] 08-03-2023 influenza, injectabl e, quadrivalent, preservative free Dr. Panda Stock Work Phone: [facility] 07-25-2022 influenza, injectabl e, quadrivalent, preservative free Dr. Panda Stock Work Phone: [facility] 07-25-2022 influenza, seasonal, injectable Dr. Panda Stock Work Phone: [facility] 07-31-2021 influenza, injectabl e, quadrivalent, preservative free Dr. Panda Stock Work Phone: [facility] 07-31-2021 influenza, seasonal, injectable Dr. Panda Stock Work Phone: [facility] 07-24-2020 influenza, injectabl e, quadrivalent, preservative free Dr. Panda Stock Work Phone: [facility] 07-24-2020 influenza, seasonal, injectable Dr. Panda Stock Work Phone: [facility] 09-07-2019 influenza, injectabl e, quadrivalent, preservative free Dr. Panda Stock Work Phone: [facility] 09-07-2019 influenza, seasonal, injectable Dr. Panda Stock Work Phone: [facility] 08-25-2018 influenza, injectabl e, quadrivalent, preservative free Dr. Panda Stock Work Phone: [facility] 08-25-2018 influenza, seasonal, injectable Dr. Panda Stock Work Phone: [facility] 10-27-2017 influenza, injectabl e, quadrivalent, preservative free Dr. Panda Stock Work Phone: [facility] 10-27-2017 influenza, seasonal, injectable Dr. Panda Stock Work Phone: [facility] 04-27-2016 tetanus toxoid, reduced diphtheria toxoid, and acellular pertussis vaccine, adsorbed Dr. Panda Stock Work Phone: [facility] Payers Date Payer Category Payer Private Health Insurance [facility] [id number] 2024 [facility] BLUE CARD PPO OOS [id number] 2024 Unknown [id number] 2024 Self-pay [id number] 2024 Unknown [id number] 2015 Unknown [id number] Unknown [id number] Unknown [id number] Unknown [id number]. 462 Unknown [id number] 2.840.1.144566.3.579.2. 462 Unknown [id number] 2.16840.1.641706.3.579.2. 462 Unknown [id number] 2.16.840.1.310232.3.579.2. 462 Unknown [id number] 2.16.840.1.158837.3.579.2. 462 Unknown [id number] [id number]. 462 Unknown [id number] 2.16.840.1.521490.3.579.2. 462 Unknown [id number] 2.16.840.1.874820.3.579.2. 462 Unknown [id number] 2.16.840.1.681567.3.579.2. 462 Unknown [id number] 2.16.840.1.106430.3.579.2. 462 Unknown [id number] 2.16840.1.712042.3.579.2. 462 Unknown [id number] 2.16840.1.529573.3.579.2. 462 Unknown [id number] 2.16.840.1.113243.3.579.2. 462 Unknown [id number] 2.16.840.1.721017.3.579.2. 462 Unknown [id number] 2.16.840.1.853297.3.579.2. 462 Unknown [id number] 2.16.840.1.963138.3.579.2. 462 Unknown [id number] [id number]. 462 Social History Date Type Detail Facility [facility] Work Phone: Start: 01-24-2022 End: 01-29-2024 Tobacco smoking status OHIS Unknown if ever smoked [facility] Start: 08-31-2020 None [facility] Start: 08-31-2020 With Family [facility] Start: 11-12-2021 Non-smoker [facility] Start: 1995 Sex Assigned At Female [facility] Start: 12-07-2024 End: 03-08-2025 Tobacco smoking status NHIS Never smoked tobacco (finding) [facility] Start: 02-01-2025 Sex Female (finding) [facility] Start: 03-08-2025 Tobacco use and exposure Smokeless tobacco non-user [facility] Start: 03-08-2025 Alcoholic beverage intake Current drinker of alcohol (finding) [facility] Start: 03-08-2025 History of Social function [facility] Start: 03-08-[address] [facility] National Score (1-100), lower number is lower risk 54 [facility] Start: 03-08-2025 Alcohol Comment social [facility] Start: 1995 Sex assigned at Not on file [facility] NEGATED: Highlighted row [facility] Goals Date Patient Goal Desired Activity /State Mental Status Date Assessment Result Facility 09-30-2022 Cognitive function Level Of Cons ciousness Awake;Alert;Appropriate;Follow s Commands [facility] Work Phone: 11-16-2021 Cognitive function Voice/Name;To uch/Shaking;Light Pain;Deep Pain [facility] Work Phone: Clinical Notes 11-02-2024 to [...] 12, 2025 2:26pm Near syncope acute May 12 2:26pm Vasovagal near syncope acute Ju 2024 2:26pm Congenital pulmonic valve stenosis chronic May 12, 2025 2:26pm [facility] Work Phone: 1(675) 399-137705-21-2025 Instructions* Patient Instructions* Lata Coreas LPN - [...] contact your doctor's office. [facility]25 NoteHNO ID: [id number] Author: SCOTTIE CHANCE MD Service: ? Author [...] / SAFETY CHECKLIST Procedure to be Performed: [place] bx and ECC Sign In: A Moment [...] office LEEP as lesion is small. Scottie Chance, [facility]05-21-2025 History of Present illness Narrative* Scottie Chance [...] / SAFETY CHECKLIST Procedure to be Performed: [place] bx and ECC Sign In: A Moment [...] small. Scottie Chance MD documented in this encounterC[facility]-14-2025 Note* Addendum Note - Scottie Chance MD - 03/08/2025 9:59 AM EDTAddended by: SCOTTIE CHANCE on: 03/08/2025 09:59 AM Modules accepted: Orders [facility]05-14-2025 Miscellaneous Notes* Addendum Note - Scottie Chance MD - 03/08/2025 9:59 AM EDTAddended by: SCOTTIE CHANCE on: 03/08/2025 09:59 AM Modules accepted: Orders documented in this encounterC[facility]05-14-2025 NoteHNO ID: [id number] Author: SCOTTIE CHANCE MD Service: ? Author Type: Physician Type: Progress Notes Filed: 03/08/2025 09:55 Note Text: Katie Pulliam is a 30 year old female who presents for problem visit to discuss abnormal pap, miscairrage after colposcopy, abnormal HSG, another miscarriage after pap. Rec made for advanced reproductive evaluation.. 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 Mcgee FINGER RIGHT surgery HSG 2022 KNEE [...] Questionable tubal patency deserving of evaluation by concession attendant. Extensive review of records ftft> 60 min Scottie Chance [facility]05-14-2025 History of Present illness Narrative* Scottie Chance MD - 03/08/2025 8:43 AM EDT Katie Pulliam is a 30 year old female who presents for problem visit to discuss abnormal pap, miscairrage after colposcopy, abnormal HSG, another miscarriage after pap. Rec made for advance\d reproductive evaluation.. 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 Extensive review of records ftft> 60 min Scottie Chance MD documented in this encounterC[facility]04-[facility]-2025 Evaluation note* Diagnosis Onset Date Resolution Status [...] 12, 2025 2:26pm Near syncope acute May 12 025 2:26pm Vasovagal near syncope acute Ju 2024 2:26pm Congenital pulmonic valve stenosis chronic May 12, 2025 2:26pm [place] [facility] Work Phone: [phone] Evaluation note* Diagnosis Onset Date Resolution Status [...] severe dysplasia acute January 27, 2025 3:29pm [facility] Work Phone: 1(511) 621-183203-06-2025 Evaluation note* Diagnosis Onset Date Resolution Status [...] of thoracic region acute April 13 10:52am [place] [facility] Work Phone: 1(380) 851-970701-08-2025 Evaluation note* Diagnosis Onset Date Resolution Status Admit Date Acute pharyngitis, unspecified acute November 02, 2024 7:02am RSV (respiratory syncytial v irus infection) acute November 02 7:02am Viral URI acute December 29 12:35pm Back pain acute January 24 1:25pm Segmental and somatic dysfunction of cervical region acute A pril 2024 1:25pm Segmental and somatic dysfunction of lumbar region acute Apr il 2024 1:25pm Segmental and somatic dysfunction of pelvic region acute Apr 2024 1:25pm Segmental and somatic dysfunction of thoracic region acute A pril 2024 1:25pm FRANCISCO III (cervical intraepithelial neoplasia grade III) with severe dysplasia acute January 27, 2025 3:29pm [facility] Work Phone: Chief complaint+Reason for visit [...] of heart disease Congenital pulmonic valve stenosis [facility] Work Phone: Evaluation note* Diagnosis [...] disease acute Congenital pulmonic valve stenosis chronic [facility] Work Phone: Evaluation note* Diagnosis [...] and somatic dysfunction of thoracic region acute [facility] Work Phone: Evaluation note* Diagnosis [...] for routine gynecological examination noneactive Obesity acute [facility] Work Phone: Evaluation note* Diagnosis Onset Date Resolution Status BMI 40.0-44.9, adult acute Encounter for routine gynecological examination noneactive Obesity acute Obesity acute Segmental and somatic dysfunction of cervical region resolved Segmental and somatic dysfunction of lumbar region resolved Segmental and somatic dysfunction of pelvic region resolved Segmental and somatic dysfunction of thoracic region resolved [facility] Work Phone: Evaluation note* Diagnosis Onset Date Resolution Status BMI 40.0-44.9, adult acute Encounter for routine gynecological examination noneactive Obesity acute Obesity acute Segmental and somatic dysfunction of cervical region resolved Segmental and somatic dysfunction of lumbar region resolved Segmental and somatic dysfunction of pelvic region resolved Segmental and somatic dysfunction of thoracic region resolved Postcoital bleeding acute Cervicitis noneactive [facility] Work Phone: Evaluation note* Diagnosis [...] resolved Fertility testing acute Postcoital bleeding acute [facility] Work Phone: Evaluation note* Diagnosis [...] with irregular cycle acute Pelvic pain acute [facility] Work Phone: Evaluation note* Diagnosis [...] cycle acute Pelvic pain acute Thyromegaly acute [facility] Work Phone: Evaluation note* Diagnosis [...] cycle acute Obesity acute Pelvic pain acute [facility] Work Phone: Evaluation note* Diagnosis [...] and somatic dysfunction of thoracic region acute [facility] Work Phone: Evaluation note* Diagnosis Onset [...] 38.0-38.9,adult acute Calf pain acute Obesity acute [facility] Work Phone: Evaluation note* Diagnosis Pap smear of cervix with ASCUS, cannot exclude HGSIL- Primary Papanicolaou smear of cervix with atypical squamous cells cannot exclude high grade squamous intraepithelial lesion (ASC-H) [facility] Diagnosis Pap smear of cervix with ASCUS, cannot exclude HGSIL- Primary Papanicolaou smear of cervix with atypical squamous cells cannot exclude high grade squamous intraepithelial lesion (ASC-H) [facility]* Diagnosis Female infertility- Primary Female infertility of unspecified origin [facility]* Diagnosis Pap smear of cervix with ASCUS, cannot exclude HGSIL- Primary Papanicolaou smear of cervix with atypical squamous cells cannot exclude high grade squamous intraepithelial lesion (ASC-H) documented in this encounter [facility] for referral (narrative)No reason for referral information availableWAvita Health System Work Phone: Family History No Family History [...] Will No November 21 8:42am Power of Triage Rn No November 21, 2021 8:42am Advance Directive Response Recorded Date/ Time Living Will No September 30 6:29am Power of Triage Rn No September 30, 2022 6:29am Advance Directive Response Recorded Date/ Time Living Will No September 30 7:29am Power of Triage Rn No September 30, 2022 7:29am Advance Directive Response Recorded Date/ Time Living Will No March 16, 2023 1 0:26am Power of Triage Rn No March 16, 2023 10:26am Advance Directive Response Recorded Date/ Time Living Will No March 16, 2023 1 1:26am Power of Triage Rn No March 16, 2023 11:26am Advance Directive Response Recorded Date/ Time Living Will No June 16 10:04am Do you have a Healthcare Power of Triage Rn? 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 INT'S & BOX weight / bp check LBP/UPPER BACK ABN MENSIS Reason for Visit BMI 40.0-44.9, adult Encounter for routine gynecological examination Obesity Obesity Segmental and somatic dysfunction of cervical region Segmental and somatic dysfunction of lumbar region Segmental and somatic dysfunction of pelvic region Segmental and somatic dysfunction of thoracic region Chief Complaint 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 INT'S & BOX [...] region Postcoital bleeding Cervicitis Chief Complaint 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 INT'S & BOX [...] THROAT, COUGH, HEADACHE October 7:02am 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/ [employer] November 02, 2024 7: 12am 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/ [employer] December 29, 2024 12:3 4pm SORE THROAT, [...] 2025 3:29pm Chief Complaint Admit Date EMPLOYEE [employer] December 29, 2024 12:3 4pm SORE THROAT, [...] 2025 3:29pm Chief Complaint Admit Date EMPLOYEE [employer]/ [employer] December 29, 2024 12:3 4pm SORE THROAT, [...] Provider, Refe rring Provider Active Cari Holman WIRE FRAME DIPPER, WIRE FRAME DIPPER-C Attending Provider Active Team Status: Active Member [...] Primary Care Provider Activ e Cari Holman WIRE FRAME DIPPER, WIRE FRAME DIPPER-C Attending Provider, Referring Provider Active Team Status: [...] Primary Care Provider Activ e Cari Holman WIRE FRAME DIPPER, WIRE FRAME DIPPER-C Attending Provider Active Team Status: Inactive Member [...] Inactive Member Role Status Dates Jean Carlos Seay PA, PA Attending Provider Active Team Status: Inactive [...] Status: Active Member Role Status Dates Lala DENTONC, W[employer] FR[employer] DIPPER-C Primary Care Provider Activ e Team Status: Inactive Member Role Status Dates Lala DENTONC, W[employer] DIPPER-C Primary Care Provider Activ e Start: October 06, 2024 End: October 06, 2024 Vivienne East VSC, DO Attending Provider Active Start: October 06, 2024 End: October 06, 2024 Vivienne East VSC, DO Referring Provider Active Start: October 06, 2024 End: October 06, 2024 Team Status: Inactive Member Role Status Dates Lala Ybarra VSC, W[employer] FR[employer] DIPPER-C Primary Care Provider Activ e Start: November 02, 2024 End: November 02, 2024 Lala Ybarra VSC, W[employer] FR[employer] DIPPER-C Referring Provider Active Start: November 02, 2024 End: November 02, 2024 Feliciano PAINTING, PA Attending Provider Active Start: November 02, 2024 End: November 02, 2024 Team Status: Inactive Member Role Status Dates Lala Ybarra VSC, WIRE FR[employer] DIPPER-C Primary Care Provider Activ e Start: December 29, 2024 End: December 29, 2024 Lala DENTONC, WIRE FR[employer] DIPPER-C Referring Provider Active Start: December 29, 2024 End: December 29, 2024 Demario Drake W[employer] FR[employer] DIPPER-C Attending Provider Active Star t: December 29, 2024 End: December 29, 2024 Team Status: Inactive Member Role Status Dates Lala Ybarra VSC, WIRE FRAME DIPPER-C Primary Care Provider Activ e Start: January 24, 2025 End: January 24, 2025 Lala MARTE, W[employer] FR[employer] DIPPER-C Referring Provider Active Start: January 24, 2025 End: January 24, 2025 Dr. Cora Saeed DC Attending Provider Active S tart: January 24, 2025 End: January 24, 2025 Team Status: Inactive Member Role Status Dates Dr. Francisco Stock MD Referring Provider Active Start: January 27, 2025 End: January 27, 2025 Lala MARTE, WIRE FR[employer] DIPPER-C Primary Care Provider Activ e Start: January 27, 2025 End: January 27, 2025 Nayely Gregg CNM Attending Provider Active S tart: January 27, 2025 End: January 27, 2025 Team Status: Inactive Member Role Status Dates Lala MARTE WIRE FRAME DIPPER-C Primary Care Provider Activ e Start: January 27, 2025 End: January 27, 2025 Nayely Gregg CNM Attending Provider Active S tart: January 27, 2025 End: January 27, 2025 Nayely Gregg CNM Referring Provider Active S tart: January 27, 2025 End: January 27, 2025 Ladies' Locker Room Attendant Relationship Specialty Start Date End Date Praneeth Quevedo [address] [place] [address] Referring Orthopedics 08/24/19 Ladies' Locker Room Attendant Relationship Specialty Start Date End Date Praneeth Quevedo [address] [place], [place] [id number] Referring Orthopedics 08/24/19 Ladies' Locker Room Attendant Relationship Specialty Start Date End Date Praneeth Quevedo [address] [place], [place] [id number] Referring Orthopedics 08/24/19 Team Status: Inactive Member Role Status Dates Lala MARTE, W[employer] FR[employer] DIPPER-C Primary Care Provider Activ e Start: April 05, 2025 End: April 05, 2025 Lala MARTE WIRE FRAME DIPPER-C Attending Provider Active Start: April 05, 2025 End: April 05, 2025 Team Status: Inactive Member Role Status Dates Lala DENTONC, WIRE FRAME DIPPER-C Primary Care Provider Activ e Start: April 13, 2025 End: April 13, 2025 Lala Tate B[employer], WIRE FRAME DIPPER-C Referring Provider Active Start: April 13, 2025 End: April 13, 2025 Dr. Cora Saeed DC Attending Provider Active S tart: April 13, 2025 End: April 13, 2025 Team Status: Active Member Role/Relationship Status Dates Lala Tate VSC, WIRE FRAME DIPPER-C Primary Care Provider Activ e Team Status: Inactive Member Role/Relationship Status Dates Lala Tate VSC, WIRE FRAME DIPPER-C Primary Care Provider Activ e Start: January 24, 2025 End: January 24, 2025 Alla Tate BERTINC, WIRE FRAME DIPPER-C Referring Provider Active Start: January 24, 2025 End: January 24, 2025 Dr. Cora Saeed DC Attending Provider Active S tart: January 24, 2025 End: January 24, 2025 Team Status: Inactive Member Role/Relationship Status Dates Dr. Francisco Stock MD Referring Provider Active Start: January 27, 2025 End: January 27, 2025 Lalayina Ybarra BERT[employer], W[employer] FR[employer] D[employer]PER-C Primary Care Provider Activ e Start: January 27, 2025 End: January 27, 2025 Nayely Gregg CNM Attending Provider Active S tart: January 27, 2025 End: January 27, 2025 Team Status: Inactive Member Role/Relationship Status Dates Lala Tate BERTINC, W[employer] FR[employer] D[employer]PER-C Primary Care Provider Activ e Start: January 27, 2025 End: January 27, 2025 Nayely Gregg CNM Attending Provider Active S tart: January 27, 2025 End: January 27, 2025 Nayely Gregg CNM Referring Provider Active S tart: January 27, 2025 End: January 27, 2025 Team Status: Inactive Member Role/Relationship Status Dates Lala DENTONC, WIRE FRAME DIPPER-C Primary Care Provider Activ e Start: April 05, 2025 End: April 05, 2025 Lala DENTONC, WIRE FRAME DIPPER-C Attending Provider Active Start: April 05, 2025 End: April 05, 2025 Team Status: Inactive Member Role/Relationship Status Dates Lala Tate VSC, WIRE FR[employer] DIPPER-C Primary Care Provider Activ e Start: April 13, 2025 End: April 13, 2025 Lala DENTONC, WIRE FRAME DIPPER-C Referring Provider Active Start: April 13, 2025 End: April 13, 2025 Dr. Cora Saeed DC Attending Provider Active S tart: April 13, 2025 End: April 13, 2025 Team Status: Inactive Member Role/Relationship Status Dates Lala Ybarra VSC, W[employer] FR[employer] D[employer]PER-C Primary Care Provider Activ e Start: May 12, 2025 End: May 12, 2025 Lala Ybarra VSC, W[employer] D[employer]PER-C Referring Provider Active Start: May 12, 2025 End: May 12, 2025 Jannette PAINTING, PA Attending Provider Active Start: May 12, 2025 End: May 12, 2025 [employer] Room Attendant Relationship Specialty Start Date End Date Sae Praneeth Tuyet [address] [place] [address] Referring Orthopedics 08/24/19 Team Status: Inactive Member Role/Relationship Status Dates Lala Ybarra VSC, WIRE FR[employer] DIPPER-C Primary Care Provider Activ e Start: April 05, 2025 End: April 05, 2025 Lala DENTONC, W[employer] FR[employer] DIPPER-C Attending Provider Active Start: April 05, 2025 End: April 05, 2025 Team Status: Inactive Member Role/Relationship Status Dates Lala DENTONC, W[employer] FR[employer] DIPPER-C Primary Care Provider Activ e Start: April 13, 2025 End: April 13, 2025 Lala DENTONC, W[employer] FR[employer] DIPPER-C Referring Provider Active Start: April 13, 2025 End: April 13, 2025 Dr. Cora Saeed DC Attending Provider Active S tart: April 13, 2025 End: April 13, 2025 Team Status: Inactive Member Role/Relationship Status Dates Lala Ybarra VSC, W[employer] D[employer]PER-C Primary Care Provider Activ e Start: May 12, 2025 End: May 12, 2025 Lala Ybarra VSC, W[employer] D[employer]PER-C Referring Provider Active Start: May 12, 2025 End: May 12, 2025 Jannette PAINTING, PA Attending Provider Active Start: May 12, 2025 End: May 12, 2025 Team Status: Inactive Member Role/Relationship Status Dates Lala Ybarra VSC, W[employer] D[employer]-C Primary Care Provider Activ e Start: May 30, 2025 End: May 30, 2025 MERT Boothe Attending Provider Active Start: May 30, 2025 End: May 30, 2025 MERT Boothe Referring Provider Active Start: May 30, 2025 End: May 30, 2025 Team Status: Active Member Role/Relationship Status Dates Lala Ybarra BERT[employer], W[employer] FR[employer] DIPPER-C Primary Care Provider Activ e Start: May [...] or prosecute any alcohol or drug abuse patient.[facility] the event this information is protected by the Federal Confidentiality of Alcohol and Drug Abuse Patient Records regulations: The Federal rules restrict any use of the information to criminally investigate or prosecute any alcohol or drug abuse patient.[facility] the event this information is protected by the Federal Confidentiality of Alcohol and Drug Abuse Patient Records regulations: The Federal rules restrict any use of the information to criminally investigate or prosecute any alcohol or drug abuse patient.[facility] the event this information is protected by the Federal Confidentiality of Alcohol and Drug Abuse Patient Records regulations: The Federal rules restrict any use of the information to criminally investigate or prosecute any alcohol or drug abuse patient.[facility] Reason for Visit (unrecogniz ed section and content) Reason Comments Consult Reason Comments Colposcopy Specialty Diagnoses / Procedures Referred By Contac t Referred To Contact [facility] Diagnoses Pap smear of cervix with ASCUS, cannot exclude HGSIL Procedures COLPOSCOPY COLPOSCOPY CERVIX BX CERVIX & ENDOCRV Scottie Hartley MD [address] [place] [address] Phone: tel: fax: [facility] [address] [place] [address] Referral ID Status Reason Start Date Expiration Date V isits Requested Visits Authorized [id number] Closed Auto-Generate d Referral 03/08/2025 03/08/2026 1 1 INFORMATION SOURCE (unrecogn ized section and content) DATE CREATED AUTHOR 03/27/2025 [facility] DATE CREATED AUTHOR AUTHOR'S ORGANIZ ATION 08/17/2025 [facility] FOR RECORDS PERTAINING TO PATIENTS WHO ARE [...] BE BASED ON THE PRIMARY CLINICAL RECORDS. [facility]. provides no warranty or guarantee of the accuracy or completeness of information in this document.
[2025-08-18 06:28] LABS: hCG Titer Quant., Serum 182 mIU/mL (<9 non-preg)
== END | disposition home or self-care (01) ==
LOC: LAB 05:26
DX: N92.6 Irregular menstruation, unspecified (principal)
CPT/HCPCS: 36415; 84702

== ENCOUNTER 2025-08-30 01:24 | Emergency (ER) | payer OTHER, SELFPAY ==
[2025-08-30 01:24] VITALS: BP 121/61; PULSE 88; RESP 18; TEMP 36.6; O2SAT 100; BMI 39.5
--- NOTE | 2025-08-30 01:47 | US_ITS ---
PROCEDURE: US/Transvaginal w/Preg US
[2025-08-30 01:56] LABS: Mucous, Urine 0 SEEN /hpf (<or=2+)
[2025-08-30 01:57] LABS: Glucose, Dipstick Normal (Normal); Ketone-Dipstick Negative (Negative); Leukocyte Esterase-Dipstick 25 /ul (Negative); Nitrite-Dipstick Negative (Negative); Occult Blood-Urine 10 /ul (Negative); Protein-Dipstick 15 mg/dl (Negative); Specific Gravity, Urine 1.015 (1.002-1.030); Urine Bilirubin Dipstick Negative (Negative)
[2025-08-30 02:11] LABS: Color, Urine Yellow (Yellow)
[2025-08-30 02:12] LABS: Red Blood Cells-Urine 0-5 SEEN /hpf (0-5); Squamous Epithelial Cells - UA 0-5 SEEN /hpf (5-10)
[2025-08-30 02:45] LABS: hCG Titer Quant., Serum 18686 mIU/mL (<9 non-preg)
[2025-08-30 03:24] VITALS: PULSE 81; RESP 18; O2SAT 99
--- NOTE | 2025-08-30 03:47 | EX.ED.DYSGE1 ---
HPI History of Present Illness Chief Complaint: Abd Pain Informant: patient and spouse/S.O. Narrative Narrative: Patient is a 30-year-old female who is a G2, P0 with 1 spontaneous miscarriage. She states that by last menstrual dates she is approximately 5-1/2 weeks . She reports that she went to bed feeling normally and then awoke with cramping in the midline lower pelvic/abdominal region. She states there is no associated nausea vomiting diarrhea or dysuria. She denies any vaginal bleeding or discharge. She states that she miscarried roughly a year ago around the same date and has concern for miscarriage based on her new onset pain and with this comes in for evaluation. 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 Wears glasses Wears contact lenses Alcohol use Easy bruising Back pain Difficulty swallowing Diarrhea Non-smoker Leg cramps History of stress test History of echocardiogram Cardiology follow-up encounter Hx of fracture of finger Fertility testing COVID-19 COVID-19 Seasonal allergies Knee pain Fatigue Family history of DVT Abnormal stress test Depression Congenital pulmonic valve stenosis Pancreatitis Heart murmur Headaches, cluster Anxiety Home Medications ?Medication ?Instructions ?Recorded ?Last Taken ?Type albuterol sulfate 90 mcg/actuation 2 puff inhalation Q4H PRN 06/16/24 Unknown History aerosol inhaler shortness of breath or wheezing vit no.95-ferrous 1 tab PO DAILY 08/30/25 Unknown History fumarate 28 mg-folic acid 800 mcg tablet () Allergy/AdvReac Type Severity Reaction Status Date / Time adhesive tape Allergy Intermediate abrasion Verified 08/30/25 01:25 Influenza Virus Vaccines Allergy Intermediate Swelling Verified 08/30/25 01:25 norethindrone (From Aygestin) Allergy Intermediate Rash Verified 08/30/25 01:25 hydrocodone (From Vicodin) AdvReac Other Verified 08/30/25 01:25 Family History Father Hypertension Myocardial infarction, Onset Age: 32 Grandfather Hypertension Diabetes Myocardial infarction, Onset Age: 53 x2 CAD (coronary artery disease) Grandmother Kidney failure Liver cirrhosis Heart disease Mother Fibrosis of liver Gluten intolerance Other Arthritis Asthma Bleeding disorder CVA (cerebral vascular accident) Cancer Gout Sudden cardiac Thyroid disorder Surgical History H/O LEEP Hx of esophagogastroduodenoscopy Hx of wisdom tooth extraction History of appendectomy H/O lateral meniscus repair of left knee Hx of cholecystectomy Hx of right breast biopsy Social History Smoking Status: Never smoker alcohol intake: current alcohol intake frequency: holidays/special occasions only details: social substance use type: does not use caffeine: Yes what type of physical activity do you participate in: walking and running frequency: 5-6 times per week seatbelt use: always do you feel safe at home: Yes additional social history: Works at [employer] ROS ROS ED Constitutional Constitutional ED: Denies chills or fever(s) ENT ENT ED: Denies sore throat Cardiovascular Cardiovascular: Denies chest pain Respiratory/Chest Respiratory/Chest: Denies cough or dyspnea Gastrointestinal Gastrointestinal: Reports abdominal pain; Denies diarrhea, nausea or vomiting Genitourinary Genitourinary ED: Reports other Details: Negative for vaginal bleeding or discharge ; Denies dysuria or hematuria Musculoskeletal Musculoskeletal: Denies back pain or myalgias Integumentary Denies rash Neurologic Neurologic: Denies headache(s) Hematologic/Lymphatic Hematologic/Lymphatic: Denies easy bleeding or easy bruising EXAM Physical Exam Const Vital Signs: 08/30/25 01:24 08/30/25 03:24 08/30/25 03:54 Temperature 97.9 F 98 F Temperature Source Oral Pulse Rate 88 81 82 Respiratory Rate 18 18 16 Blood Pressure 121/61 H 106/67 Blood Pressure Mean 81 80 Pulse Ox 100 99 99 Oxygen Delivery Method Room Air Room Air Positive well nourished and well developed General Appearance ED: well developed; Negative for pallor HEENT HEENT Narrative: Normocephalic atraumatic Eyes PERRL and EOMs intact bilaterally General Eye ED: Negative for scleral icterus Neck supple Resp normal respiratory effort and clear to auscultation bilaterally Cardio regular rate and regular rhythm Rate: other Other Details: Heart is regular rate and rhythm without murmurs rubs or gallops Radial and carotid pulses are equal and symmetric GI non-distended and no masses GI Narrative: Abdomen is soft and nondistended with normal active bowel sounds Patient has pain with palpation in the suprapubic region without voluntary guarding or rigidity No pulsatile mass or fluid wave. Auscultation: normoactive bowel sounds Palpation: soft Back/Spine no CVA tenderness Extremity normal to inspection Neuro oriented x3, CN's II-XII intact bilaterally and no sensory deficits noted Sensorium / Orientation: alert Motor Exam: strength 5/5 throughout Psych mental status grossly normal Skin no rashes or lesions noted and no wounds General Skin Exam: Negative for jaundice or pallor MDM MDM MDM Narrative Medical decision making narrative: Patient arrived to the ER with stable vitals. She reported sudden onset of suprapubic pain while sleeping. She has concern for miscarriage as she is approximately 5-1/2 weeks but denies vaginal bleeding or discharge. In order to ensure patient is not experiencing a active miscarriage or developing an ectopic or ovarian torsion. Also to check for potential UTI a urine sample was obtained. The urine sample showed no sign of infection going against UTI/pyelonephritis. The patient's hCG value increased from approximately 200 on August 16 to 18,000 today. In order to assess for potential ectopic a transvaginal ultrasound was ordered. This revealed a intrauterine gestational sac without pole or heartbeat. This could be simply due to early or potentially the start of a miscarriage. However at this time there is no ovarian torsion there is no ectopic . Therefore the patient will need further hCG testing and repeat ultrasounds to assess the viability of her but this can be done as an outpatient through her SCHEDULE CLERK and therefore she is otherwise safe for discharge. History & Record Review Discussion w/independent historian: Patient and Significant other Lab Data Attestation: I reviewed the patient's lab results. Labs: Laboratory Results - last 24 hr 08/30/25 08/30/25 01:30 01:52 HCG, Quant [id number] H Urine Color Yellow Urine Clarity Clear Urine pH 7.0 Ur Specific [place] 1.015 Urine Protein 15 H Urine Glucose (UA) Normal Urine Ketones Negative Urine Occult Blood 10 H Urine Nitrite Negative Urine Bilirubin Negative Urine Urobilinogen Normal Ur Leukocyte Esterase 25 H Urine RBC 0-5 SEEN Urine WBC 0-5 SEEN Ur Squamous Epith Cells 0-5 SEEN Urine Bacteria RARE Urine Mucus 0 SEEN Blood Type O POSITIVE Radiography Diagnostic Testing: Clinical Impression(s) from Imaging Studies Obstetrics Ultrasound 08/30/25 01:47 IMPRESSION: Right ovarian complex cyst measuring 3.5 cm. Normal left ovary. Normal bilateral ovarian flow. Moderate amount of free fluid in the pelvic cul-de-sac. Single intrauterine gestational sac. No pole is identified. Reading Location: [place] [id number] Discharge Plan Triage Chief Complaint: Abd Pain ED Provider: Brian Florez Dx/Rx/DC Orders Clinical Impression: Abdominal pain during in first trimester Instructions: 1st Trimester, ED Abdominal Pain, Early Prescriptions: No Action PNV no.95-ferrous fumarate-FA [] 28 mg iron- 800 mcg tablet 1 tab PO DAILY albuterol sulfate 90 mcg/actuation HFA aerosol inhaler 2 puff inhalation Q4H PRN (Reason: shortness of breath or wheezing) Stand Alone Forms: ED Work / School Excuse Primary Care Provider: Dyllan Moon Referrals: Eliane Maynard MD [Med Staff - Active Staff, Obstetrics-Gynecology (OBGYN)] Dyllan Moon, VISUAL DEVELOPER-C [Primary Care Provider, Family Practice] Activity Restrictions/Additional Instructions: Please follow-up with your SCHEDULE CLERK for repeat evaluation and return to the ER should you have any further concerns or worsening of symptoms Print Language: Senegalese Disposition Disposition: Home, Self Care Discharge Date/Time: 08/30/25 03:55
[2025-08-30 03:54] VITALS: BP 106/67; PULSE 82; RESP 16; TEMP 36.6; O2SAT 99
== END 2025-08-30 03:55 | disposition home or self-care (01) ==
PROVIDERS: Emergency Provider Emergency Medicine; Visit Provider Emergency Medicine
DX: O26.891 Other specified pregnancy related conditions, first trimester (principal); R10.9 Unspecified abdominal pain; Z86.16 Personal history of COVID-19; Z90.49 Acquired absence of other specified parts of digestive tract; Z3A.01 Less than 8 weeks gestation of pregnancy
CPT/HCPCS: 76817; 81001; 84702; 86900; 86901; 99283; A4216

== ENCOUNTER → 2025-09-29 | Outpatient (CLI) | payer OTHER, SELFPAY ==
[2025-09-29 13:09] LABS: Hematocrit 40.0 % (37-47); Hemoglobin 13.6 g/dL (12.0-15.0); Mean Corp Hgb Conc 34.0 g/dL (32-36); Mean Corpuscular Volume 86.2 fL (81-99); Mean Platelet Vol. 10.5 fl (6.2-12.0); Platelet Count 298 K/mm3 (150-450); RBC Distribution Width CV 13.2 % (11.6-14.6); RBC Distribution Width SD 41.0 fl (35.1-43.9); Red Blood Count 4.64 M/mm3 (4.2-5.4); White Blood Count 10.2 K/mm3 (4.4-11.0)
[2025-09-29 14:16] LABS: Iron 66 ug/dL (50-170); Iron Binding Capacity,Total 325 ug/dL (250-450); Iron Binding Capacity,Unsat 259 ug/dL (228-428); Vitamin B12 455 pg/mL (180-914)
[2025-09-29 15:39] LABS: FOLATES,SERUM (FOLIC ACID) 31.30 ng/mL (4.60-34.80)
[2025-09-29 19:26] LABS: HIV Reactive (Nonreactive); Hepatitis B Surface Antigen Nonreactive (Nonreactive); Hepatitis C Antibody Nonreactive (Nonreactive); Syphilis Antibodies Nonreactive (Nonreactive)
== END | disposition home or self-care (01) ==
PROVIDERS: Visit Provider Nurse Practitioner Family
DX: Z11.3 Encounter for screening for infections with a predominantly sexual mode of transmission (principal); Z3A.01 Less than 8 weeks gestation of pregnancy; O09.91 Supervision of high risk pregnancy, unspecified, first trimester
CPT/HCPCS: 36415; 82607; 82746; 83036; 83540; 83550; 85027; 86703; 86762; 86780; 86803; 86850; 86900; 86901; 87340

== ENCOUNTER → 2025-10-03 | Outpatient (CLI) | payer OTHER, SELFPAY ==
--- OUTSIDE RECORDS SUMMARY | 2025-10-03 07:40 | XMS RPT_ITS | CCD ---
Author Organization [facility] Care Team Providers Care Fundraising Manager Name Role Phone Dr. Panda Stock Primary Care Provider [phone] Dr. Panda Stock Referring Provider Dr. Hi Silverio Attending Provider Dr. Cora Saeed Attending Provider [phone] [facility] VENDING MACHINE REPAIRER, VENDING MACHINE REPAIRER-Ame Cat Attending Provider Dr. Panda Stock Primary Care Provider [phone] Dr. Panda Stock Referring Provider Dr. Cora Saeed Attending Provider [phone] Dr. Panda Stock Primary Care Provider [phone] Dr. Panda Stock Referring Provider Dr. Cora Saeed Attending Provider [phone] [place] VENDING MACHINE REPAIRERUZIEL Attending Provider Dr. Panda Stock Primary Care Provider [phone] Dr. Panda Stock Referring Provider Dr. Cora Saeed Attending Provider [phone] Dr. Panda Stock Primary Care Provider [phone] Dr. Panda Stock Referring Provider [place] VENDING MACHINE REPAIRERUZIEL Attending Provider [phone] Dr. Cora Saeed Attending Provider [phone] Dr. Panda Stock Primary Care Provider [phone] Dr. Panda Stock Referring Provider [place] VENDING MACHINE REPAIRER, VENDING MACHINE REPAIRER-C Cari Attending Provider [phone] Dr. Cintia Mcgee Attending Provider [phone] Dr. Cintia Mcgee Other Provider Dr. Cora Saeed Attending Provider [phone] Dr. Panda Stock Primary Care Provider Dr. Cintia Mcgee Attending Provider [phone] Dr. Cintia Mcgee Other Provider [phone] Dr. Panda Stock Referring Provider Dr. Cora Saeed Attending Provider [phone] [place] VENDING MACHINE REPAIRER, VENDING MACHINE REPAIRER-C Cari Attending Provider [phone] Dr. Panda [...] Provider Dr. Francisco Stock Referring Provider Tate VENDING MACHINE REPAIRER-CLala Primary Care Provider Vivienne East DO Attending Provider Vivienne East DO Referring Provider [place] VENDING MACHINE REPAIRER-C, Lala Referring Provider Feliciano Ge Attending Provider Demario Martines Attending Provider [phone] [place], Dr. Shepherd Attending Provider [phone] Dr. Francisco Stock MD Referring Provider Nayely Gregg CNM Attending Provider [phone] Nayely Gregg CNM Referring Provider [phone] Praneeth Quevedo Unavailable [place] VENDING MACHINE REPAIRER-C, Lala Primary Care Provider [place] VENDING MACHINE REPAIRER-C, Lala Referring Provider [place] VENDING MACHINE REPAIRER-C, Lala Attending Provider Tate VENDING MACHINE REPAIRER-C, Lala Primary Care Provider Tate VENDING MACHINE REPAIRER-C, Lala Referring Provider Jannette Christensen Attending Provider [phone] [place] VENDING MACHINE REPAIRER-C, Lala Primary Care Provider [place] VENDING MACHINE REPAIRER-C, Lala Referring Provider [place], Dr. Shepherd Attending Provider [phone] Jannette Christensen Referring Provider [phone] Shara PERSAUD, Dr. Rivas Attending Provider [phone] Francisco Stock Referring Unavailable Tate VSC, Lala Primary Care Unavailabl e Nayely Gregg Attending Unavailable Tate VSC, Lala Primary Care Unavailabl e Tate VSC, Lala Referring Unavailabl e Feliciano Ge Attending Unavailable MoomaDemraio tobin Attending Unavailable Tate VSC, Lala Primary Care [...] Referring Unavailabl e Feliciano Ge Attending Unavailable Cora Saeed Attending Unavailable Tate VSC, Lala Primary Care Unavailabl e Tate VSC, Lala Referring Unavailabl e Tate VSC, Lala Referring Unavailabl e Tate VSC, [facility] Primary Care Unavailabl e Jannette Christensen Attending Unavail able Tate VSC, [facility] Primary Care Unavailabl e Rob Olmedo Attending Unavailable Trista Lala Attending Unavailabl e Tate VSC, [facility] Primary Care Unavailabl e Tate VSC, Lala Referring Unavailabl e Beam VSC, [place] Attending Unavailable Beam VSC, [place] Primary Care Unavailable Beam VSC, [place] Referring Unavailable Beam VSC, [place] Attending Unavailable Beam VSC, [place] Primary Care Unavailable Cruzito VSC, Vivienne Attending Unavailable Tate VSC, [facility] Primary Care Unavailabl e Cruzito VSC, Vivienne Referring Unavailable Cruzito VSC, Vivienne Attending Unavailable Tate VSC, [facility] Primary Care Unavailabl e Cruzito VSC, Vivienne Referring Unavailable Beam VSC, [place] Primary Care Unavailable Brian Florez Attending Unavailable Tate VSC, [facility] Primary Care Unavailabl e Nayely Gregg Referring Unavailable Nayely Gregg Attending Unavailable Tate VSC, Lala Attending Unavailabl e Tate VSC, [facility] Primary Care Unavailabl e Assessment, Health Risk Attending Unavaila ble Beam VSC, [place] Primary Care Unavailable Tate VSC, Lala Primary Care Unavailabl e Jannette Christensen Referring Unavail able Jannette Christensen Attending Unavail able SCOTTIE CHANCE Attending Unavailable SCOTTIE CHANCE Attending Unavailable SCOTTIE CHANCE Referring Unavailable Allergies Allergy Classification Reported Allergen(s) Allergy Type Date of Onset Reaction(s) Facility (20 sources) Adhesive Tape; Translations: [adhesive tape] Allergy to substance 01-25-20 22 abrasion [place] (20 sources) HYDROcodone; Translations: [HYDROCODONE] Drug Allergy 07-21-20 18 Other: See Comments [place] (9 sources) flu vaccine Allergy to substance 07-08-20 22 Swelling [place] (3 sources) Norethindrone Drug Allergy 12-25-19 Rash [place] (8 sources) Influenza Vaccines Allergy to substance 09-10-20 Swelling [place] (8 sources) Norethindrone Drug Allergy 09-10-20 Rash [place] (4 sources) Adhesive Tape-Silicones; Translations: [ADHESIVE TAPE-SILICONES] Drug Intolerance 03-15-20 [facility] (1 source) HYDROcodone Drug Allergy 08-30-20 [facility] [facility] (1 source) Norethindrone Drug Allergy 08-30-20 [facility] (1 source) Influenza Virus Vaccines Drug allergy (disorder) 08-30-20 [place] [facility] Medications Current Medications Medication Drug Class(es) Dates Sig (Normalized) Sig (Original) [id number] 200 actuat albuterol 0.09 mg/actuat metered dose [...] 750 mg by mouth twice daily. Active [place] (Nk) (2 sources) Start: 09-10-2022 [place] (Nk) Active September 10, 2022 12:00am phentermine [...] mg capsule Discontinued 37.5 mg PO DAILY August 05, 2022 4:08pm September 10, 2022 [...] 2021 12:00am June 09, 2022 1:53pm levonorgestrel 0.762273 mg/hr intrauterine system (20 sources) Progestin, Progestin-containi [...] and frequent menstruation with irregular cycle] Onset: 08-29-2012-22-2022 Chronic Comment on above: ocp switched to [...] 08-05-2022 Chronic Comment on above: Nutrition plan: [facility] [phone] calorie, scouts consult Medication plan: plan 18.75mg Phentermine, increased [...] Translations: [Encounter for test, result positive] Onset: 08-24-20 Episodic Other screening for suspected conditions (not [...] Test Name Value Interpretation Reference Range Facility [id number] 08-30-2025 ABO and Rh group Nom (Bld) Blood group O Rh(D) positive Normal [place] Comment on above: Performed By: #### L 700.8000, B882-1 ####[place] [address] [place], [place], [address] [facility] 08-30-2025 VAL Telephone (KEGYWM) KATIE PULLIAM ([id number]) 1995 F Date Time Provider Department 08/30/25 ANNETTE MADRIGAL During your visit today, we recorded the following information about you: Jacki Khan RN 08/30/2025 11:52 AM Signed LMP 07/25/25 - 5w1d Patient went to [facility] ER last night for pelvic pain. States the pain woke her up from her sleep and was originally 9/10 on the pain scale. They did u/s and showed single IUP, but no pole or FHR. Asking if she needs seen sooner then her NOB on 09/14 now. Her pain is mild cramping today, only rating 2-3/10 on the pain scale now. No bleeding, discharge or other concerns. ER records to CP to review. Please advise. ANGELIKA Rock Courtney, APRN.CNM 08/30/2025 12:08 PM Signed Not at this time. Please review bleeding precautions and when to return to ER. Annette Madrigal APRN.Fabienne Anaya RN 08/30/2025 12:16 PM Signed Patient given recommendation. Patient given miscarriage/ectopic precautions. Patient states pain is much less now-like a dull pain. She is to call/come in if she develops bleeding. If bleeding is heavy or pain worsens or PRN to go to ER. Allergies As of Date: 08/30/2025 Noted Allergy Reaction ADHESIVE TAPE-SILICONES 03/15/2025 4 - Hives HYDROCODONE 07/21/2018 14 - Other: See Comments Comments: Cannot sleep Date Reviewed: 03/15/2025 Reviewed by: Lata Coreas LPN - Fully Assessed Reason for Visit: Early OB ER F/u [Other] Prescriptions as of 08/30/2025 - vit 91/iron/folic/dha ( + DHA ORAL) Take 1 tablet by mouth once daily. - buPROPion XL (WELLBUTRIN XL) 300 mg 24 hr tablet Take 300 mg by mouth once daily. - nabumetone (RELAFEN) 750 mg tablet Take 750 mg by mouth twice daily. Problem List As Of Date 08/30/2025 Noted Resolved Pap smear of cervix with ASCUS, cannot exclude *03/22/2025 Encounter Status:Closed by ANNETTE MADRIGAL on 08/30/25 Normal [facility] Emergency Department Summary on 08-30-2025 Emergency Department Summary [facility] Medical Records Department [address] [place] [address] Emergency Department Summary 08/30/25 MR#: [id number] Acct: [id number] Name: KATIE PULLIAM Rep #: [id number] : 1995 30 From: Brian Florez DO PCP: Dyllan Moon Ame VENDING MACHINE REPAIRER-C Status:DEP ER Location: ED HPI History of Present Illness Chief Complaint: Abd Pain Informant: patient and spouse/S.O. Narrative Narrative: Patient is a 30-year-old female who is a G2, P0 with 1 spontaneous miscarriage. She states that by last menstrual dates she is approximately 5-1/2 weeks . She reports that she went to bed feeling normally and then awoke with cramping in the midline lower pelvic/abdominal region. She states there is no associated nausea vomiting diarrhea or dysuria. She denies any vaginal bleeding or discharge. She states that she miscarried roughly a year ago around the same date and has concern for miscarriage based on her new onset pain and with this comes in for evaluation. [facility] Medical History Viral URI RSV (respiratory syncytial [...] Medications ???Medication ???Instructions ???Recorded ???Last Taken ???Type albuterol sulfate 90 mcg/actuation 2 puff inhalation Q4H PRN Unknown History aerosol inhaler shortness of breath or wheezing vit no.95-ferrous 1 tab PO DAILY 08/30/25 Unknown Hi story fumarate 28 mg-folic acid 800 mcg tablet () Allergy/AdvReac Type Severity Reaction Status Date / Time adhesive tape Allergy Intermediate abrasion Verified 08/30/25 01:25 Influenza Virus Vaccines Allergy Intermediate Swelling Verified 08/30/25 01:25 norethindrone (From Aygestin) Allergy Intermediate Rash Verified 08/30/25 01:25 hydrocodone (From Vicodin) AdvReac Other Verified 08/30/25 01:25 Family History Father Hypertension Myocardial infarction, Onset Age: 32 Grandfather Hypertension Diabetes Myocardial infarction, Onset Age: 53 x2 CAD (coronary artery disease) Grandmother Kidney failure Liver cirrhosis Heart disease Mother Fibrosis of liver Gluten intolerance Other Arthritis Asthma Bleeding disorder CVA (cerebral vascular accident) Cancer Gout Sudden cardiac Thyroid disorder Surgical History H/O LEEP Hx of esophagogastroduodenoscopy [...] home: Yes additional social history: Works at [employer] ROS ROS ED Constitutional Constitutional ED: Denies chills or fever(s) ENT ENT ED: Denies sore throat Cardiovascular Cardiovascular: Denies chest pain Respiratory/Chest Respiratory/Chest: Denies cough or dyspnea Gastrointestinal Gastrointestinal: Reports abdominal pain; Denies diarrhea, nausea or vomiting Genitourinary Genitourinary ED: Reports other Details: Negative for vaginal bleeding or discharge ; Denies dysuria or hematuria Musculoskeletal Musculoskeletal: Denies back pain or myalgias Integumentary Denies rash Neurologic Neurologic: Denies headache(s) Hematologic/Lymphatic Hematologic/Lymphatic: Denies easy bleeding or easy bruising EXAM Physical Exam Const Vital Signs: 08/30/25 01:24 08/30/25 03:24 08/30/25 03:54 Temperature 97.9 F 98 F Temperature Source Oral Pulse Rate 88 81 82 Respiratory Rate 18 18 16 Blood Pressure 121/61 H 106/67 Blood Pressure Mean 81 80 Pulse Ox 100 99 99 Oxygen Delivery Method Room Air Room Air Positive well nourished and well develop (more content not included)... Normal [place] Transvaginal w/Preg [facility] Transvaginal w/Preg US [facility] [address] [place] [address] Transvaginal w/Preg US MR#: [id number] Acct: [id number] Name: KATIE PULLIAM Rep #: [id number] : 1995 F 30 From: Roel foley MD PCP: Dyllan Moon [facility] VENDING MACHINE REPAIRER-C Status: REG ER Study: Transvaginal w/Preg US Date of Exam: 08/30/25 Exam# [id number] Ordering Dr: Brian Florez DO PROCEDURE: TRANSVAGINAL W/PREG US 08/30/2025 REASON FOR EXAM: ABDOMINAL/PELVIC PAIN TECHNIQUE: Procedure Code: USTVAGP Modality: US Procedure: TRANSVAGINAL W/PREG US COMPARISON: None. FINDINGS Single intrauterine gestational sac measuring 1.5 cm, 6 weeks and 2 days. Normal appearance of the gestational sac. A yolk sac is noted measuring 2 mm. Estimated gestational age by ultrasound is 6 weeks and 2 days. Estimated delivery date on 04/23/2026. No pole is identified. The uterus measures 7.3 x 4.2 x 3.7 cm. Normal closed cervix. Moderate amount of free fluid in the pelvic cul-de-sac. Normal bilateral ovarian flow without evidence of ovarian torsion. Normal left ovary measuring 2.9 x 2.5 x 1.4 cm. The right ovary measures 5 x 4.7 x 3.7 cm. Right ovarian complex cyst measuring 3.5 x 3.3 x 3.4 cm. US/Transvaginal w/Preg US IMPRESSION: Right ovarian complex cyst measuring 3.5 cm. Normal left ovary. Normal bilateral ovarian flow. Moderate amount of free fluid in the pelvic cul-de-sac. Single intrauterine gestational sac. No pole is identified. Reading [facility] CC: Brian Florez DO; Dyllan DENTON VENDING MACHINE REPAIRER-C Red Armature Bander: Signed Normal [place] Urinalysis, Completeon 08-30 BACTERIA RARE Normal None Seen [place] Comment on above: Order Comment: CLEAN CATCH Performed By: #### L 400.0001 ####[place] [address] [place], [address] EPI,SQUAMOUS 0-5 SEEN Normal 5-10 [place] Comment on above: Order Comment: CLEAN CATCH Performed By: #### L 400.0001 ####[place] [address] [place], [place], [id number] RBC 0-5 SEEN Normal 0-5 [place] Comment on above: Order Comment: CLEAN CATCH Performed By: #### L 400.0001 ####[place] [address] [place], [place], [id number] WBC 0-5 SEEN Normal 0-5 [place] Comment on above: Order Comment: CLEAN CATCH Performed By: #### L 400.0001 ####[place] [address] [place], [place], [id number] Mucus Ql (Urine sed) 0 SEEN Normal [facility] Comment on above: Order Comment: CLEAN CATCH Performed By: #### L 400.0001 ####[place] [address] [place], [place], [id number] hCG Titer Quant., Serumon HCG QUANT. 12396 mIU/mL High <9 non-preg [place] Comment on above: Result Comment: Gest ational Age 0.2-1 Week: 5-50 mIU/mL 1-2 Weeks: 50-500 mIU/mL 2-3 Weeks: 100-5000 mIU/mL 3-4 Weeks: 500-10,000 mIU/mL 4-5 Weeks:1000-50,000 mIU/mL 5-6 Weeks: 10,000-100,000 mIU/mL 6-8 Weeks: 15,000-200,000 mIU/mL 2-3 Months:10,000-100,000 mIU/mL Performed By: #### L 700.8000, B882-1 ####[place] [address] [place], [address] hCG Titer Quant., Serumon HCG QUANT. 182 mIU/mL High <9 non-preg [place] Comment on above: Result Comment: Gest ational Age 0.2-1 Week: 5-50 mIU/mL 1-2 Weeks: 50-500 mIU/mL 2-3 Weeks: 100-5000 mIU/mL 3-4 Weeks: 500-10,000 mIU/mL 4-5 Weeks:1000-50,000 mIU/mL 5-6 Weeks: 10,000-100,000 mIU/mL 6-8 Weeks: 15,000-200,000 mIU/mL 2-3 Months:10,000-100,000 mIU/mL Performed By: #### L 700.8000 ####[place] [address] [facility] [place], [place], [id number] hCG Titer Quant., Serumon HCG QUANT. 48 mIU/mL High <9 non-preg [place] Comment on above: Result Comment: Gest ational Age 0.2-1 Week: 5-50 mIU/mL 1-2 Weeks: 50-500 mIU/mL 2-3 Weeks: 100-5000 mIU/mL 3-4 Weeks: 500-10,000 mIU/mL 4-5 Weeks:1000-50,000 mIU/mL 5-6 Weeks: 10,000-100,000 mIU/mL 6-8 Weeks: 15,000-200,000 mIU/mL 2-3 Months:10,000-100,000 mIU/mL Performed By: #### L 700.8000 #### [facility] [address] [place], [place], [id number] CBC, Employeeon 07-12-2025 Absolute Lymph 1.82 X10 3/uL Normal 0.83-4.51 [place] Comment on above: Performed By: #### L 500.2900, L100.0200, L400.0100 #### [facility] [address] [place], [place], [id number] Absolute Neut 4.2 X10 3/uL Normal 2.0-7.7 [place] Comment on above: Performed By: #### L 500.2900, L100.0200, L400.0100 #### [facility] [address] [place], [address] Basophils/100 WBC (Bld) 0.5 % Normal 0-1 [facility] Comment on above: Performed By: #### L 500.2900, L100.0200, L400.0100 #### [facility] [address] [place], [address] Eosinophils/100 WBC (Bld) 1.2 % Normal 0-5 [place] Comment on above: Performed By: #### L 500.2900, L100.0200, L400.0100 #### [facility] [address] [place], [address] Erythrocyte distribution width (RBC) [Ratio] 13.6 % Normal 11.6-14.6 [place] Comment on above: Performed By: #### L 500.2900, L100.0200, L400.0100 #### [facility] [address] [place], [address] Hematocrit (Bld) [Volume fraction] 40.8 % Normal 37-47 [facility] Comment on above: Performed By: #### L 500.2900, L100.0200, L400.0100 #### [facility] [address] [place], [address] Hemoglobin (Bld) [Mass/Vol] 13.6 g/dL Normal 12.0-15.0 [facility] Comment on above: Performed By: #### L 500.2900, L100.0200, L400.0100 #### [facility] [address] [place], [address] Lymphocytes/100 WBC (Bld) 27.7 % Normal 19-41 [facility] Comment on above: Performed By: #### L 500.2900, L100.0200, L400.0100 #### [facility] [address] [place], [address] MCH (RBC) [Entitic mass] 28.8 pg Normal 27.0-32.0 [facility] Comment on above: Performed By: #### L 500.2900, L100.0200, L400.0100 #### [facility] [address] [place], [address] MCHC (RBC) [Mass/Vol] 33.3 g/dL Normal 32-36 [facility] Comment on above: Performed By: #### L 500.2900, L100.0200, L400.0100 #### [facility] [address] [place], [address] MCV (RBC) [Entitic vol] 86.4 fL Normal 81-99 [facility] Comment on above: Performed By: #### L 500.2900, L100.0200, L400.0100 #### [facility] [address] [place], [address] Monocytes/100 WBC (Bld) 7.0 % Normal 0-10 [facility] Comment on above: Performed By: #### L 500.2900, L100.0200, L400.0100 #### [facility] [address] [place], [address] Neutrophils/100 WBC (Bld) 63.3 % Normal 47-70 [place] Comment on above: Performed By: #### L 500.2900, L100.0200, L400.0100 #### [facility] [address] [place], [address] NRBC # 0.00 10 3/uL Normal 0-5 [place] Comment on above: Performed By: #### L 500.2900, L100.0200, L400.0100 #### [facility] [address] [place], [address] Nucleated RBC (Bld) [#/Vol] 0 10*3/uL Normal 0-5 [facility] Comment on above: Performed By: #### L 500.2900, L100.0200, L400.0100 #### [facility] [address] [place], [address] Platelet mean volume (Bld) [Entitic vol] 12.7 fL High 6.2-12.0 [place] Comment on above: Performed By: #### L 500.2900, L100.0200, L400.0100 #### [facility] [address] [place], [address] Platelets (Bld) [#/Vol] 304 10*3/uL Normal 150-450 [facility] Comment on above: Performed By: #### L 500.2900, L100.0200, L400.0100 #### [facility] [address] [place], [address] RBC (Bld) [#/Vol] 4.72 10*6/uL Normal 4.2-5.4 [facility] Comment on above: Performed By: #### L 500.2900, L100.0200, L400.0100 #### [facility] [address] [place], [address] RDW SD 42.3 fl Normal 35.1-43.9 [place] Comment on above: Performed By: #### L 500.2900, L100.0200, L400.0100 #### [facility] [address] [place], [address] WBC (Bld) [#/Vol] 6.6 10*3/uL Normal 4.4-11.0 [facility] Comment on above: Performed By: #### L 500.2900, L100.0200, L400.0100 #### [facility] [address] [place], [address] Employee Profileon LDH 216 U/L Normal 84-246 [place] Comment on above: Performed By: #### L 500.2900, L100.0200, L400.0100 #### [facility] [address] [place], [address] Phosphate [Mass/Vol] 3.4 mg/dL Normal 2.7-4.5 [facility] Comment on above: Performed By: #### L 500.2900, L100.0200, L400.0100 #### [facility] [address] [place], [address] URIC 4.7 mg/dL Normal 2.6-6.0 [place] Comment on above: Result Comment: The drugs N-Acetylcysteine and Metamizole may falsely depress this assay. Performed By: #### L 500.2900, L100.0200, L400.0100 #### [facility] [address] [place], [address] Urinalysis, Employeeon 07-12 BILIRUBIN URINE Negative Normal Negative [place] Comment on above: Order Comment: CLEAN CATCH Performed By: #### L 500.2900, L100.0200, L400.0100 #### [facility] [address] [place], [address] Clarity (U) Cloudy Normal Clear [place] Comment on above: Order Comment: CLEAN CATCH Performed By: #### L 500.2900, L100.0200, L400.0100 #### [facility] [address] [place], [address] Color (U) Yellow Normal Yellow [place] Comment on above: Order Comment: CLEAN CATCH Performed By: #### L 500.2900, L100.0200, L400.0100 #### [facility] [address] [place], [address] GLUCOSE, UR Normal Normal Normal [place] Comment on above: Order Comment: CLEAN CATCH Performed By: #### L 500.2900, L100.0200, L400.0100 #### [facility] [address] [place], [address] KETONE UR Negative Normal Negative [facility] Comment on above: Order Comment: CLEAN CATCH Performed By: #### L 500.2900, L100.0200, L400.0100 #### [facility] [address] [place], [address] LEUK ESTERASE 100 /ul Abnormal Negative [place] Comment on above: Order Comment: CLEAN CATCH Performed By: #### L 500.2900, L100.0200, L400.0100 #### [facility] [address] [place], [address] Nitrite Ql (U) Negative Normal Negative [facility] Comment on above: Order Comment: CLEAN CATCH Performed By: #### L 500.2900, L100.0200, L400.0100 #### [facility] [address] [place], [address] OCCULT BLOOD-UR Negative Normal Negative [place] Comment on above: Order Comment: CLEAN CATCH Performed By: #### L 500.2900, L100.0200, L400.0100 #### [facility] [address] [place], [address] pH UR 6.0 Normal 5.0 - 8.0 [facility] Comment on above: Order Comment: CLEAN CATCH Performed By: #### L 500.2900, L100.0200, L400.0100 #### [facility] [address] [place], [address] PROT DIPSTX 30 mg/dl Abnormal Negative [place] Comment on above: Order Comment: CLEAN CATCH Performed By: #### L 500.2900, L100.0200, L400.0100 #### [facility] [address] [place], [address] SP.GR. DIPSTX 1.020 Normal 1.002-1.03 0 [facility] Comment on above: Order Comment: CLEAN CATCH Performed By: #### L 500.2900, L100.0200, L400.0100 #### [facility] [address] [place], [address] UROBILI Normal Normal Normal [place] Comment on above: Order Comment: CLEAN CATCH Performed By: #### L 500.2900, L100.0200, L400.0100 #### [facility] [address] [place], [address] Echo Completeon 05-30-2025 Echo Complete [facility] [address] [place] [address] Echo Complete 05/30/25 0706 MR#: [id number] Acct: [id number] Name: KATIE PULLIAM Rep #: [id number] : 1995 30 From: Rob Olmedo MD [...] 05/30/25 1140 Date Rob Olmedo MD CC: ESTUARDO Ybarra; MERT Phillips Date Dictated: 05/30/25 07 Date Transcribed: 05/30/25 114 Armature Bander: Signed Normal [place] Echocardiogram study reportO rdered By: Rob Olmedo on 05-30-2025 Study report [facility] [address] [place] [address] Echo Complete 05/30/25 0706 MR#: [id number] Acct: [id number] Name: KATIE PULLIAM Rep #:[id number] : 1995 30 From: Rob Matihs Attending Dr: MERT Phillips Status: REG CLI Ordering Dr: Jannette Wilcox Date: 05/30/25 Location: [facility] Sex: F C Admitted: Reason [...] 1140 Date _ Rob Olmedo MD CC: C VENDING MACHINE REPAIRER-C Lala Ybarra; MERT Phillips ~ Date Dictated: 05/30/25 0706 Date Transcribed: 05/30/25 1140 Armature Bander: Signed [place] Work Phone: Cardiology Visit Reporton Cardiology Visit Report [facility] [address] [place] [address] OFFICE VISIT Date of Service: 05/12/25 MR#: [id number] Acct: [id number] Name: KATIE PULLIAM Rep #: [id number] : 1995 Provider: MERT Alicea Age/Sex: 30/F [place] [facility] Status: Signed HPI HPI History of Present Illness Details: KATIE CHENG, is a 30 year old white female who presents to the office today for outpatient cardiovascular follow up based upon concerns of underlying of congenital pulmonic stenosis. She had previously been followed through [facility]. 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 She complains of increased low back pain over the last weekend. She states she worked the [employer] last wekend and stood for long hours [...] Yes thoraco-lum (more content not included)... Normal [place] Insulin Levelon 04-07-2025 INSULIN,FASTING 10.8 uIU/mL Normal 2.6-24.9 [place] Comment on above: Result Comment: Perf ormed at: - [facility] [place] [id number] [place], [place] [id number] Clay Burner: Roque Soriano PhD, Phone: [phone] Performed By: #### L 019.7935, W239.2155, L501.9520, L100.0100, L506.0400, L3300.3500, L500.4100, L500.4050 ####[place] [address] [place], [address] Absolute lymphocyte countOrd ered By: [facility] Lala Ybarra on 04-05-2025 Lymphocytes Auto (Unsp spec) [#/Vol] 1.95 10*3/uL 0.83-4.51 [place] Absolute neutrophil countOrd ered By: [facility] on 04-05-2025 Neutrophils (Bld) [#/Vol] 4.7 10*3/uL 2.0-7.7 [place] Amphetamine detection with 1 000 ng/mL as cutoffOrdered By: [facility] Y[facility] on 04-05-2025 Amphetamines Screen method >1000 ng/mL Ql (U) Negative < 200 ng/mL [place] Anion gap in Serum or Plasma Ordered By: [facility] Lala Ybarra on 04-05-2025 Anion gap [Moles/Vol] 11 mmol/L 5-15 [facility] Automated lymphocyte count a s percentage of total leukocytesOrdered By: [facility] Ybarra on 04-05-2025 Lymphocytes/100 WBC Auto (Unsp spec) 26.9 % 19-41 [place] BUN/creatinine ratioOrdered By: [facility] Y[facility] on 04-05-2025 Urea nitrogen/Creatinine [Mass ratio] 17.0 mg/mg 10-20 [place] Basophil percentageOrdered B y: [facility] Lala Ybarra on 04-05-2025 Basophils/100 WBC (Bld) 0.3 % 0-1 [facility] Bilirubin, totalOrdered By: [facility] Y[facility] on 04-05-2025 Bilirubin [Mass/Vol] 0.31 mg/dL 0.00-1.30 [facility] CBC W/Diff, Automatedon 03-26 Absolute Lymph 1.95 X10 3/uL Normal 0.83-4.51 [place] Comment on above: Performed By: #### L 505.5000, L501.9985, L501.9520, L100.0100, L506.0400, L3300.3500, L500.4100, L500.4050 ####[place] [address] [place], [address] Absolute Neut 4.7 X10 3/uL Normal 2.0-7.7 [place] Comment on above: Performed By: #### L 505.5000, L501.9985, L501.9520, L100.0100, L506.0400, L3300.3500, L500.4100, L500.4050 ####[place] [address] [place], [address] Basophils/100 WBC (Bld) 0.3 % Normal 0-1 [facility] Comment on above: Performed By: #### L 505.5000, L501.9985, L501.9520, L100.0100, L506.0400, L3300.3500, L500.4100, L500.4050 ####[place] [address] [place], [address] Eosinophils/100 WBC (Bld) 1.5 % Normal 0-5 [place] Comment on above: Performed By: #### L 505.5000, L501.9985, L501.9520, L100.0100, L506.0400, L3300.3500, L500.4100, L500.4050 ####[place] [address] [place], [address] Erythrocyte distribution width (RBC) [Ratio] 13.8 % Normal 11.6-14.6 [place] Comment on above: Performed By: #### L 505.5000, L501.9985, L501.9520, L100.0100, L506.0400, L3300.3500, L500.4100, L500.4050 ####[place] [address] [place], [address] Hematocrit (Bld) [Volume fraction] 39.2 % Normal 37-47 [place] Comment on above: Performed By: #### L 505.5000, L501.9985, L501.9520, L100.0100, L506.0400, L3300.3500, L500.4100, L500.4050 ####[place] [address] [place], [address] Hemoglobin (Bld) [Mass/Vol] 13.0 g/dL Normal 12.0-15.0 [place] Comment on above: Performed By: #### L 505.5000, L501.9985, L501.9520, L100.0100, L506.0400, L3300.3500, L500.4100, L500.4050 ####[place] [address] [place], [address] IG% 0.300 Normal 0.0-0.9 [place] Comment on above: Result Comment: IG% - Immature Granulocytes (promyelocytes, myelocytes and metamyelocytes) > 1% indicates that a LEFT SHIFT is Present. Performed By: #### L 505.5000, L501.9985, L501.9520, L100.0100, L506.0400, L3300.3500, L500.4100, L500.4050 ####[place] [address] [place], [address] Lymphocytes/100 WBC (Bld) 26.9 % Normal 19-41 [place] Comment on above: Performed By: #### L 505.5000, L501.9985, L501.9520, L100.0100, L506.0400, L3300.3500, L500.4100, L500.4050 ####[place] [address] [place], [address] MCH (RBC) [Entitic mass] 28.0 pg Normal 27.0-32.0 [place] Comment on above: Performed By: #### L 505.5000, L501.9985, L501.9520, L100.0100, L506.0400, L3300.3500, L500.4100, L500.4050 ####[place] [address] [place], [address] MCHC (RBC) [Mass/Vol] 33.2 g/dL Normal 32-36 [facility] Comment on above: Performed By: #### L 505.5000, L501.9985, L501.9520, L100.0100, L506.0400, L3300.3500, L500.4100, L500.4050 ####[place] [address] [place], [address] MCV (RBC) [Entitic vol] 84.5 fL Normal 81-99 [facility] Comment on above: Performed By: #### L 505.5000, L501.9985, L501.9520, L100.0100, L506.0400, L3300.3500, L500.4100, L500.4050 ####[place] [address] [place], [address] Monocytes/100 WBC (Bld) 6.3 % Normal 0-10 [facility] Comment on above: Performed By: #### L 505.5000, L501.9985, L501.9520, L100.0100, L506.0400, L3300.3500, L500.4100, L500.4050 ####[place] [address] [place], [address] Neutrophils/100 WBC (Bld) 64.7 % Normal 47-70 [place] Comment on above: Performed By: #### L 505.5000, L501.9985, L501.9520, L100.0100, L506.0400, L3300.3500, L500.4100, L500.4050 ####[place] [address] [place], [address] Nucleated RBC (Bld) [#/Vol] 0 10*3/uL Normal 0-5 [place] Comment on above: Performed By: #### L 505.5000, L501.9985, L501.9520, L100.0100, L506.0400, L3300.3500, L500.4100, L500.4050 ####[place] [address] [place], [address] Platelet mean volume (Bld) [Entitic vol] 11.8 fL Normal 6.2-12.0 [place] Comment on above: Performed By: #### L 505.5000, L501.9985, L501.9520, L100.0100, L506.0400, L3300.3500, L500.4100, L500.4050 ####[place] [address] [place], [address] Platelets (Bld) [#/Vol] 293 10*3/uL Normal 150-450 [place] Comment on above: Performed By: #### L 505.5000, L501.9985, L501.9520, L100.0100, L506.0400, L3300.3500, L500.4100, L500.4050 ####[place] [address] [place], [address] RBC (Bld) [#/Vol] 4.64 10*6/uL Normal 4.2-5.4 [facility] Comment on above: Performed By: #### L 505.5000, L501.9985, L501.9520, L100.0100, L506.0400, L3300.3500, L500.4100, L500.4050 ####[place] [address] [place], [address] RDW SD 42.2 fl Normal 35.1-43.9 [place] Comment on above: Performed By: #### L 505.5000, L501.9985, L501.9520, L100.0100, L506.0400, L3300.3500, L500.4100, L500.4050 ####[place] [address] [place], [place], [id number] WBC (Bld) [#/Vol] 7.3 10*3/uL Normal 4.4-11.0 [facility] Comment on above: Performed By: #### L 505.5000, L501.9985, L501.9520, L100.0100, L506.0400, L3300.3500, L500.4100, L500.4050 ####[place] [address] [place], [place], [id number] Calculated very low density lipoprotein (VLDL) cholesterol measurementOrdered By: [facility] Lala Ybarra on 04-05-2025 Calculated very low density lipoprotein (VLDL) cholesterol measurement 16 mg/dL 5-40 [place] Carbon dioxide, total [Moles /volume] in Central venous bloodOrdered By: [facility] Lala Ybarra on 04-05-2025 CO2 [Moles/Vol] 19.5 mmol/L Low 21.0-32.0 [place] Chloride assayOrdered By: [facility] Lala Ybarra on 04-05-2025 Chloride [Moles/Vol] 107 mmol/L 98-108 [facility] Comprehensive Metabolic Prof ilon 04-05-2025 Albumin [Mass/Vol] 4.0 g/dL Normal 3.5-5.0 [facility] Comment on above: Performed By: #### L 505.5000, L501.9985, L501.9520, L100.0100, L506.0400, L3300.3500, L500.4100, L500.4050 ####[place] [address] [place], [address] Albumin/Globulin [Mass ratio] 1.3 {ratio} Normal 0.9-2.4 [place] Comment on above: Performed By: #### L 505.5000, L501.9985, L501.9520, L100.0100, L506.0400, L3300.3500, L500.4100, L500.4050 ####[place] [address] [place], [address] ALK PHOS 76 U/L Normal 35-104 [place] Comment on above: Performed By: #### L 505.5000, L501.9985, L501.9520, L100.0100, L506.0400, L3300.3500, L500.4100, L500.4050 ####[place] [address] [place], [place], [phone](882) ALT [Catalytic activity/Vol] 14 U/L Normal <=34 [place] Comment on above: Performed By: #### L 505.5000, L501.9985, L501.9520, L100.0100, L506.0400, L3300.3500, L500.4100, L500.4050 ####[place] [address] [place], [place], [phone]) AST [Catalytic activity/Vol] 21 U/L Normal <=31 [place] Comment on above: Performed By: #### L 505.5000, L501.9985, L501.9520, L100.0100, L506.0400, L3300.3500, L500.4100, L500.4050 ####[place] [address] [place], [place], [phone](523) Bilirubin [Mass/Vol] 0.31 mg/dL Normal 0.00-1.30 [facility] Comment on above: Performed By: #### L 505.5000, L501.9985, L501.9520, L100.0100, L506.0400, L3300.3500, L500.4100, L500.4050 ####[place] [address] [place], [address] BUN/CRE 17.0 RATIO Normal 10-20 [place] Comment on above: Performed By: #### L 505.5000, L501.9985, L501.9520, L100.0100, L506.0400, L3300.3500, L500.4100, L500.4050 ####[place] [address] [place], [address] Calcium [Mass/Vol] 8.9 mg/dL Normal 7.6-11.0 [facility] Comment on above: Performed By: #### L 505.5000, L501.9985, L501.9520, L100.0100, L506.0400, L3300.3500, L500.4100, L500.4050 ####[place] [address] [place], [address](471) Chloride [Moles/Vol] 107 mmol/L Normal 98-108 [facility] Comment on above: Performed By: #### L 505.5000, L501.9985, L501.9520, L100.0100, L506.0400, L3300.3500, L500.4100, L500.4050 ####[place] [address] [place], [address] CO2 [Moles/Vol] 19.5 mmol/L Low 21.0-32.0 [place] Comment on above: Performed By: #### L 505.5000, L501.9985, L501.9520, L100.0100, L506.0400, L3300.3500, L500.4100, L500.4050 ####[place] [address] [place], [address] Creatinine [Mass/Vol] 0.64 mg/dL Low 0.70-1.20 [facility] Comment on above: Performed By: #### L 505.5000, L501.9985, L501.9520, L100.0100, L506.0400, L3300.3500, L500.4100, L500.4050 ####[place] [address] [place], [place], [phone](459) GAP 11 Normal 5-15 [place] Comment on above: Performed By: #### L 505.5000, L501.9985, L501.9520, L100.0100, L506.0400, L3300.3500, L500.4100, L500.4050 ####[place] [address] [place], [place], [phone](662) GFR/1.73 sq M.predicted among non-blacks MDRD (S/P/Bld) [Vol rate/Area] 123 mL/min/{1.73_m2} Normal >60 [place] Comment on above: Result Comment: mL/m in/1.73m2 CKD-EPI Creatinine Equation (2020) Performed By: #### L 505.5000, L501.9985, L501.9520, L100.0100, L506.0400, L3300.3500, L500.4100, L500.4050 ####[place] [address] [place], [place], [phone] Globulin (S) [Mass/Vol] 3.1 g/dL Normal 2.2-4.2 [facility] Comment on above: Performed By: #### L 505.5000, L501.9985, L501.9520, L100.0100, L506.0400, L3300.3500, L500.4100, L500.4050 ####[place] [address] [place], [address] Glucose [Mass/Vol] 92 mg/dL Normal 70-99 [facility] Comment on above: Performed By: #### L 505.5000, L501.9985, L501.9520, L100.0100, L506.0400, L3300.3500, L500.4100, L500.4050 ####[place] [address] [place], [address] Potassium [Moles/Vol] 4.0 mmol/L Normal 3.3-5.1 [facility] Comment on above: Performed By: #### L 505.5000, L501.9985, L501.9520, L100.0100, L506.0400, L3300.3500, L500.4100, L500.4050 ####[place] [address] [place], [address] Sodium [Moles/Vol] 138 mmol/L Normal 133-145 [facility] Comment on above: Performed By: #### L 505.5000, L501.9985, L501.9520, L100.0100, L506.0400, L3300.3500, L500.4100, L500.4050 ####[place] [address] [place], [address] T PROT 7.1 g/dL Normal 5.9-8.4 [place] Comment on above: Performed By: #### L 505.5000, L501.9985, L501.9520, L100.0100, L506.0400, L3300.3500, L500.4100, L500.4050 ####[place] [address] [place], [address] Urea nitrogen [Mass/Vol] 11 mg/dL Normal 4-19 [place] Comment on above: Performed By: #### L 505.5000, L501.9985, L501.9520, L100.0100, L506.0400, L3300.3500, L500.4100, L500.4050 ####[place] [address] [place], [address] Eosinophil percentageOrdered By: [facility] Lala Ybarra on 04-05-2025 Eosinophils/100 WBC (Bld) 1.5 % 0-5 [place] Erythrocyte distribution wid th ratioOrdered By: [facility] Lala Tate on 04-05-2025 Erythrocyte distribution width (RBC) [Ratio] 13.8 % 11.6-14.6 [place] Erythrocyte distribution wid th standard deviationOrdered By: [facility] on 04-05-2025 Erythrocyte distribution width (RBC) [Ratio] 42.2 fl 35.1-43.9 [place] Glomerular filtration rate ( GFR) estimation/1.73 sq m using serum, plasma, or whole bOrdered By: [facility]e Ybarra on 04-05-2025 GFR/1.73 sq M.predicted among non-blacks MDRD (S/P/Bld) [Vol rate/Area] 123 mL/min/{1.73_m2} >60 [place] Comment on above: mL/min/1.73m2 CKD-EP I Creatinine Equation (2020) Hematocrit Auto (Bld) [Volum e fraction]Ordered By: [facility] on 04-05-2025 Hematocrit (Bld) [Volume fraction] 39.2 % 37-47 [place] Hemoglobin A1con 04-05-2025 HbA1c (Bld) [Mass fraction] 5.6 % Normal <=5.6 [place] Comment on above: Result Comment: Norm al < 5.7 % Prediabetic 5.7 - 6.4 % Diabetic >or= 6.5 % Please note range changes. Performed By: #### L 505.5000, L501.9985, L501.9520, L100.0100, L506.0400, L3300.3500, L500.4100, L500.4050 ####[place] [address] [place], [place], [phone] Hemoglobin A1c percentageOrd ered By: [facility] Lala Ybarra on 04-05-2025 HbA1c (Bld) [Mass fraction] 5.6 % <5.7 [place] Comment on above: Normal < 5.7 % Predi abetic 5.7 - 6.4 % Diabetic >or= 6.5 % Please note range changes. Hemoglobin measurementOrdere d By: [facility] Lala Ybarra on 04-05-2025 Hemoglobin (Bld) [Mass/Vol] 13.0 g/dL 12.0-15.0 [place] Immature granulocytes/100 WB C Auto (Bld)Ordered By: [facility] Lala Ybarra on 04-05-2025 Immature granulocytes/100 WBC (Bld) 0.300 % 0.0-0.9 [place] Comment on above: IG% - Immature Granu locytes (promyelocytes, myelocytes and metamyelocytes) > 1% indicates that a LEFT SHIFT is Present. LDL calc ser/plasOrdered By: [facility] on 04-05-2025 Cholesterol in LDL [Mass/Vol] 95 mg/dL [place] Comment on above: Twzhayiius=929-504 m g/dL & Higher Qnjq=661 mg/dL or greater Laboratory - Chemistry and C hemistry - challengeOrdered By: [facility] on 04-05-2025 AST [Catalytic activity/Vol] 21 U/L <32 [place] Lipid Profileon 04-05-2025 CHOL:HDL 3.25 Normal [place] Comment on above: Performed By: #### L 505.5000, L501.9985, L501.9520, L100.0100, L506.0400, L3300.3500, L500.4100, L500.4050 ####[place] [address] [place], [place], [phone](007) Cholesterol [Mass/Vol] 161 mg/dL Normal <=200 [facility] Comment on above: Result Comment: Chol esterol level, Desirable <200 mg/dL Borderline high cholesterol 200-239 mg/dL High cholesterol >=240 mg/dL Recommendations of the NCEP Adult Treatment Panel for the following risk-cutoff thresholds for the [place] population. Performed By: #### L 505.5000, L501.9985, L501.9520, L100.0100, L506.0400, L3300.3500, L500.4100, L500.4050 ####[place] [address] [place], [place], [id number] Cholesterol in HDL [Mass/Vol] 50 mg/dL Normal [place] Comment on above: Result Comment: Mishel onal Cholesterol Education Program (NCEP) guidelines: <40 mg/dL: Low HDL-cholesterol (major risk factor for CHD) >= 60 mg/dL: High HDL-cholesterol (negative risk factor for CHD) HDL-cholesterol is affected by a number of factors, e.g. smoking, exercise, hormones, sex and age. Performed By: #### L 505.5000, L501.9985, L501.9520, L100.0100, L506.0400, L3300.3500, L500.4100, L500.4050 ####[place] [address] [place], [address] Cholesterol in LDL [Mass/Vol] 95 mg/dL Normal [place] Comment on above: Result Comment: Bord nhkrjs=335-403 mg/dL Higher Kwjg=952 mg/dL or greater Performed By: #### L 505.5000, L501.9985, L501.9520, L100.0100, L506.0400, L3300.3500, L500.4100, L500.4050 ####[place] [address] [place], [address] Cholesterol in VLDL [Mass/Vol] 16 mg/dL Normal 5-40 [place] Comment on above: Performed By: #### L 505.5000, L501.9985, L501.9520, L100.0100, L506.0400, L3300.3500, L500.4100, L500.4050 ####[place] [address] [place], [address] Triglyceride [Mass/Vol] 80 mg/dL Normal [facility] Comment on above: Result Comment: The drugs N-Acetylcysteine and Metamizole may falsely depress this assay. Normal range: <150 mg/dL Borderline High: 150-199 mg/dL High: 200-499 mg/dL Very High: >500 mg/dL Performed By: #### L 505.5000, L501.9985, L501.9520, L100.0100, L506.0400, L3300.3500, L500.4100, L500.4050 ####[place] [address] [place], [address] MCV (mean corpuscular volume ) determinationOrdered By: [facility] Lala Ybarra on 04-05-2025 MCV (RBC) [Entitic vol] 84.5 fL 81-99 [facility] Mean corpuscular hemoglobin (MCH) determinationOrdered By: [facility] Lala Ybarra on 04-05-2025 MCH (RBC) [Entitic mass] 28.0 pg 27.0-32.0 [place] Mean corpuscular hemoglobin concentration (MCHC) determinationOrdered By: [facility] Lala Ybarra on 04-05-2025 MCHC (RBC) [Mass/Vol] 33.2 g/dL 32-36 [facility] Mean platelet volume determi nationOrdered By: [facility] Lala Ybarra on 04-05-2025 Platelet mean volume (Bld) [Entitic vol] 11.8 fL 6.2-12.0 [place] Monocyte percentageOrdered B y: [facility] Lalayina Ybarra on 04-05-2025 Monocytes/100 WBC (Bld) 6.3 % 0-10 [facility] Neutrophil percentageOrdered By: [facility] Lala Ybarra on 04-05-2025 Neutrophils/100 WBC (Bld) 64.7 % 47-70 [place] No Panel InformationOrdered By: [facility] Lala Ybarra on 04-05-2025 Urine Buprenorphine Qualitative Negative < 200 ng/mL [place] Urine Oxycodone Screen Negative < 100 ng/mL [place] Nucleated red blood cell per centageOrdered By: [facility] Lala Ybarra on 04-05-2025 Nucleated RBC/100 WBC (Bld) [Ratio] 0 % 0-5 [place] Office Visit Reporton 2024 Office Visit Report [facility] [address] [place] [address] OFFICE VISIT Date of Service: 12/29/24 MR#: [id number] Acct: [id number] Patient: KATIE PULLIAM Rep #: [id number] : 1995 Provider: UZIEL Drake Age/Sex: 30/F [place] [facility] Status: Signed Intake Vital Signs 12/07/24 09:08 Height 5 ft 2 in 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/ [facility] Chief Complaint: 6Month FU Allergies adhesive [...] [place] Signature: Date (if applicable) CC: Normal [place] Platelet countOrdered By: BERTIN Ybarra on 04-05-2025 Platelets (Bld) [#/Vol] 293 10*3/uL 150-450 [place] Potassium measurement (mass/ volume)Ordered By: ESTUARDO Ybarra on 04-05-2025 Potassium (Unsp spec) [Mass/Vol] 4.0 mmol/L 3.3-5.1 [place] Quantitative urine opiates m easurementOrdered By: [facility] Lala Ybarra on 04-05-2025 Opiates Ql (U) Negative < 300 ng/mL [place] RBC Auto (Bld) [#/Vol]Ordere d By: [facility] Lala Ybarra on 04-05-2025 RBC (Bld) [#/Vol] 4.64 10*6/uL 4.2-5.4 [facility] Screening total cholesterol/ high density lipoprotein (HDL) cholesterol ratioOrdered By: [facility] Lala Ybarra on 04-05-2025 Cholesterol.total/Dotty sterol in HDL [Mass ratio] 3.25 {ratio} [place] Screening urine fentanyl thierno surementOrdered By: [facility] Lala Ybarra on 04-05-2025 fentaNYL Screen Ql (U) Negative [facility] Serum creatinine measurement (mass/volume)Ordered By: [facility] Lala Ybarra on 04-05-2025 Creatinine [Mass/Vol] 0.64 mg/dL Low 0.70-1.20 [facility] Serum globulin measurementOr dered By: [facility] Lala Ybarra on 04-05-2025 Globulin (S) [Mass/Vol] 3.1 g/dL 2.2-4.2 [facility] Serum glucose measurement (m ass/volume)Ordered By: [facility] Lala Ybarra on 04-05-2025 Glucose [Mass/Vol] 92 mg/dL 70-99 [facility] Serum or plasma alanine perrin otransferase (ALT) measurementOrdered By: [facility] Lala Ybarra on 04-05-2025 ALT [Catalytic activity/Vol] 14 U/L <35 [place] Serum or plasma albumin raad urement (mass/volume)Ordered By: [facility] Lala Ybarra on 04-05-2025 Albumin [Mass/Vol] 4.0 g/dL 3.5-5.0 [facility] Serum or plasma albumin/glob ulin mass ratioOrdered By: [facility] Lala Ybarra on 04-05-2025 Albumin/Globulin [Mass ratio] 1.3 {ratio} 0.9-2.4 [place] Serum or plasma alkaline [place] sphatase measurementOrdered By: [facility] Lala Ybarra on 04-05-2025 ALP [Catalytic activity/Vol] 76 U/L 35-104 [place] Serum or plasma calcium raad urement (mass/volume)Ordered By: [facility] Laalyina Ybarra on 04-05-2025 Calcium [Mass/Vol] 8.9 mg/dL 7.6-11.0 [facility] Serum or plasma cholesterol in HDL measurement (mass/volume)Ordered By: [facility] Lala Ybarra on 04-05-2025 Cholesterol in HDL [Mass/Vol] 50 mg/dL >40 [place] Comment on above: National Cholesterol Education Program (NCEP) guidelines:<40 mg/dL: Low HDL-cholesterol (major risk factor for CHD)>= 60 mg/dL: High HDL-cholesterol (negative risk factor for CHD)HDL-cholesterol is affected by a number of factors, e.g. smoking, exercise, hormones, sex and age. Serum or plasma cholesterol measurement (mass/volume)Ordered By: [facility] Lala Ybarra on 04-05-2025 Cholesterol [Mass/Vol] 161 mg/dL <201 [facility] Comment on above: Cholesterol level, D esirable <200 mg/dLBorderline high cholesterol 200-239 mg/dLHigh cholesterol >=240 mg/dLRecommendations of the NCEP Adult Treatment Panel for the following risk-cutoff thresholds for the [place] population. Serum or plasma insulin raad urement (mass/volume)Ordered By: [facility] Lala Ybarra on 04-05-2025 Insulin [Mass/Vol] 10.8 uIU/mL 2.6-24.9 [facility] Comment on above: Performed at: [address] [id number] Director: Roque Soriano PhD, Phone: [phone] Serum or plasma urea nitroge n measurement (mass/volume)Ordered By: [facility] Lala Ybarra on 04-05-2025 Urea nitrogen [Mass/Vol] 11 mg/dL 4-19 [place] Sodium levelOrdered By: [facility] Lala Ybarra on 04-05-2025 Sodium [Moles/Vol] 138 mmol/L 133-145 [facility] T4 Free Directon 04-05-2025 T4 FREE DIRECT 0.90 ng/dL Normal 0.76-1.46 [place] Comment on above: Performed By: #### L 505.5000, L501.9985, L501.9520, L100.0100, L506.0400, L3300.3500, L500.4100, L500.4050 ####[place] [address] [place], [place], [id number] T4 freeOrdered By: [facility] Jeni Ybarra on 04-05-2025 Free T4 [Mass/Vol] 0.90 ng/dL 0.76-1.46 [facility] TSH DL <= 0.005 mIU/L QnOrde red By: [facility] Lala Ybarra on 04-05-2025 TSH Qn 2.050 uIU/mL 0.300-4.20 0 [place] Thyroid Stim Hormone (TSH)on 04-05-2025 TSH 2.050 uIU/mL Normal 0.300-4.20 0 [place] Comment on above: Performed By: #### L 505.5000, L501.9985, L501.9520, L100.0100, L506.0400, L3300.3500, L500.4100, L500.4050 ####[place] [address] [place], [place], [id number] Total proteinOrdered By: [facility] Lalayina Ybarra on 04-05-2025 Protein [Mass/Vol] 7.1 g/dL 5.9-8.4 [facility] Triglycerides measurementOrd ered By: [facility] Lalayina Ybarra on 04-05-2025 Triglyceride [Mass/Vol] 80 mg/dL <199 [facility] Comment on above: The drugs N-Acetylcy steine and Metamizole may falsely depress this assay. Normal range: <150 mg/dLBorderline High: 150-199 mg/dLHigh: 200-499 mg/dLVery High: >500 mg/dL Urine Drug Screen (VISTA)on 04-05-2025 AMPHETAMINES Negative Normal <1000 ng/mL [place] Comment on above: Order Comment: UNK Performed By: #### L 505.5000, L501.9985, L501.9520, L100.0100, L506.0400, L3300.3500, L500.4100, L500.4050 ####[place] [address] [place], [place], [id number] BARBITIURATES Negative Normal < 200 ng/mL [place] Comment on above: Order Comment: UNK Performed By: #### L 505.5000, L501.9985, L501.9520, L100.0100, L506.0400, L3300.3500, L500.4100, L500.4050 ####[place] [address] [place], [place], [id number] BENZODIAZIPINE Negative Normal < 200 ng/mL [place] Comment on above: Order Comment: UNK Performed By: #### L 505.5000, L501.9985, L501.9520, L100.0100, L506.0400, L3300.3500, L500.4100, L500.4050 ####[place] [address] [place], [address] BUP Ur Drug Scr Negative Normal < 200 ng/mL [place] Comment on above: Order Comment: UNK Performed By: #### L 505.5000, L501.9985, L501.9520, L100.0100, L506.0400, L3300.3500, L500.4100, L500.4050 ####[place] [address] [place], [place], [id number] COCAINE Negative Normal < 300 ng/mL [place] Comment on above: Order Comment: UNK Performed By: #### L 505.5000, L501.9985, L501.9520, L100.0100, L506.0400, L3300.3500, L500.4100, L500.4050 ####[place] [address] [place], [place], [id number] Fentanyl Negative Normal [place] Comment on above: Order Comment: UNK Performed By: #### L 505.5000, L501.9985, L501.9520, L100.0100, L506.0400, L3300.3500, L500.4100, L500.4050 ####[place] [address] [place], [place], [id number] METHADONE Negative Normal < 300 ng/mL [place] Comment on above: Order Comment: UNK Performed By: #### L 505.5000, L501.9985, L501.9520, L100.0100, L506.0400, L3300.3500, L500.4100, L500.4050 ####[place] [address] [place], [address] OPIATES Negative Normal < 300 ng/mL [place] Comment on above: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 No complaints of fever, chills, sweats, lightheadedness/dizziness, nausea/vomiting, or chest pressure/shortness of breath/dyspnea on exertion. [facility] employee, noting increased incidence of RSV being diagnosed with coworkers she still states. Patient requesting Cepheid screening for COVID 19 and influenza and RSV as well as rapid strep test screening. No fexf-big-berzqby products taken to assist. No other associated [...] normal facial (more content not included)... Normal [place] PROLACTIN 4465on 10-12-2024 PROLACTIN 18.4 ng/mL Normal 4.8-33.4 [place] Comment on above: Order Comment: N Result Comment: Perf ormed at: [facility] Lab[address] [id number] Clay Burner: Roque Soriano PhD, Phone: [phone] Performed at: [facility] Lab[address] [id number] Clay Burner: Stefano Lopez MD, Phone: [phone] Performed By: #### L 3100.5055, L3300.1750, L3100.5310, L501.9520, L509.6000, L3100.5400 ####[place] [address] [place], [place], [id number] Testosterone, Total / Freeon 10-12-2024 TESTOSTER,FREE 0.48 ng/dL Normal 0.10-0.85 [place] Comment on above: Order Comment: N Performed By: #### L 3100.5055, L3300.1750, L3100.5310, L501.9520, L509.6000, L3100.5400 ####[place] [address] [place], [place], [id number] TESTOSTER,TOTAL 31 ng/dL Normal 13-71 [place] Comment on above: Order Comment: N Performed By: #### L 3100.5055, L3300.1750, L3100.5310, L501.9520, L509.6000, L3100.5400 ####[place] [address] [place], [address] TESTOSTERONE,%F 1.55 Normal 0.50-2.80 [place] Comment on above: Order Comment: N Performed By: #### L 3100.5055, L3300.1750, L3100.5310, L501.9520, L509.6000, L3100.5400 ####[place] [address] [place], [address] CORTISOL SERUMon 10-06-2024 CORTISOL 20.00 ug/dL Normal 3.44-22.45 [place] Comment on above: Result Comment: Adul t (AM) 5.27 - 22.45 ug/dL Adult (PM) 3.44 - 16.76 ug/dL Performed By: #### L 3100.5055, L3300.1750, L3100.5310, L501.9520, L509.6000, L3100.5400 ####[place] [address] [place], [address] Cortisol [Mass/Vol]Ordered B y: Vivienne East on 10-06-2024 Cortisol 20.00 ug/dL 3.44-22.45 [place] Comment on above: Adult (AM) 5.27 - 22 .45 ug/dL Adult (PM) 3.44 - 16.76 ug/dL Estradiolon 10-06-2024 ESTRADIOL 37.3 pg/mL Normal [place] Comment on above: Result Comment: NORM AL [...] L 3100.5055, L3300.1750, L3100.5310, L501.9520, L509.6000, L3100.5400 ####[place] [address] [place], [address] Estradiol measurementOrdered By: Vivienne East on 10-06-2024 Estradiol (E2) Level 37.3 pg/mL [facility] Comment on above: NORMAL REFERENCE RAN [...] and LHon 10-06-2024 FSH 6.1 mIU/mL Normal [place] Comment on above: Result Comment: NORMAL REFERENCE RANGES FEMALE FOLLICULAR 2.3 - 12.6 mIU/mL MID-CYCLE PEAK 5.2 - 17.5 mIU/mL LUTEAL 1.7 - 12.9 mIU/mL POST-MENOPAUSAL ON MHT 5.9 - 72.8 mIU/mL NOT ON MHT 12.7 - 132.2 mlU/mL MALE 0.7 - 10.8 mIU/mL Performed By: #### L 3100.5055, L3300.1750, L3100.5310, L501.9520, L509.6000, L3100.5400 #### [facility] [address] [place], [place], [address] LH 13.8 mIU/mL Normal [place] Comment on above: Result Comment: NORMAL REFERENCE RANGES FEMALE FOLLICULAR 1.9 - 26.2 mIU/mL MID-CYCLE PEAK 22.8 - 76.1 mIU/mL LUTEAL 0.6 - 16.6 mIU/mL POST-MENOPAUSAL ON MHT 1.1 - 52.4 mIU/mL NOT ON MHT 8.6 - 61.8 mIU/mL MALE 1.2 - 10.6 mIU/mL Performed By: #### L 3100.5055, L3300.1750, L3100.5310, L501.9520, L509.6000, L3100.5400 #### [facility] [address] [place], [address] Follicle stimulating hormone (FSH) levelOrdered By: Vivienne East on 10-06-2024 Follicle Stimulating Hormone 6.1 mIU/mL [place] Comment on above: NORMAL REFERENCE RAN [facility] FEMALE FOLLICULAR 2.3 - 12.6 mIU/mL MID-CYCLE PEAK 5.2 - 17.5 mIU/mL LUTEAL 1.7 - 12.9 mIU/mL POST-MENOPAUSAL ON MHT 5.9 - 72.8 mIU/mL NOT ON MHT 12.7 - 132.2 mlU/mL MALE 0.7 - 10.8 mIU/mL Luteinizing hormone measurem entOrdered By: Vviienne East on 10-06-2024 Luteinizing Hormone 13.8 mIU/mL [facility] Comment on above: NORMAL REFERENCE RAN GES FEMALE FOLLICULAR 1.9 - 26.2 mIU/mL MID-CYCLE PEAK 22.8 - 76.1 mIU/mL LUTEAL 0.6 - 16.6 mIU/mL POST-MENOPAUSAL ON MHT 1.1 - 52.4 mIU/mL NOT ON MHT 8.6 - 61.8 mIU/mL MALE 1.2 - 10.6 mIU/mL Prolactin [Mass/Vol]Ordered By: Vivienne East on 10-06-2024 Prolactin 18.4 ng/mL 4.8-33.4 [place] Comment on above: Performed at: [address] [id number] Director: Roque Soriano PhD, Phone: [phone] at: [facility] [address] [id number] Director: Stefano Lopez MD, Phone: [phone] TSH QnOrdered By: Vivienne gonzalez on 10-06-2024 Thyroid Stimulating Hormone (TSH) 2.460 uIU/mL 0.358-3.74 0 [place] Testosterone Free [Mass/Vol] Ordered By: Vivienne East on 10-06-2024 Free Testosterone 0.48 ng/dL 0.10-0.85 [place] Testosterone Free/Testostero ne.total [Mass fraction]Ordered By: Vivienne Cruzito on 10-06-2024 Percent Free Testosterone 1.55 % 0.50-2.80 [place] Testosterone, totalOrdered B y: Viviennekristina East on 10-06-2024 Testosterone [Mass/Vol] 31 ng/dL 13-71 [facility] Thyroid Stim Hormone (TSH)on 10-06-2024 TSH 2.460 uIU/mL Normal 0.358-3.74 0 [place] Comment on above: Performed By: #### L 3100.5055, L3300.1750, L3100.5310, L501.9520, L509.6000, L3100.5400 #### [facility] [address] [place], [place], [address] Lower Ext Joint Only (Routin e)on 09-10-2024 Lower Ext Joint Only (Routine) 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 Study: Lower Ext Joint Only (Routine) Date of Exam: 11/10/23 Exam# [id number] Ordering Dr: Vivienne East [facility] D O 2:[id number] EXAM: MR LEFT LOWER EXTREMITY WITHOUT INTRAVENOUS [...] Carlson DO at 15:25 EST , CC: [facility] UZIEL Ybarra; Vivienne East DO Armature Bander: Signed Normal [place] Basophil percentageOrdered B y: Cintia Mcgee on 02-03-2024 Chloride [Moles/Vol] 108 mmol/L 98-107 [facility] Glucose [Mass/Vol] 106 mg/dL 74-106 [facility] Comment on above: Fasting Glucose resu lt from 100 to 125 mg/dL suggests IMPAIRED HOMEOSTASIS per A.D.A. criteria. Potassium [Moles/Vol] 3.5 mmol/L 3.5-5.1 [facility] Sodium [Moles/Vol] 140 mmol/L 136-145 [facility] Laboratory - Chemistry and C hemistry - challengeOrdered By: Cintia Mcgee on 02-03-2024 CO2 [Moles/Vol] 28.0 mmol/L 21.0-32.0 [place] Urea nitrogen/Creatinine [Mass ratio] 17.7 mg/mg 08-14 [place] No Panel InformationOrdered By: Cintia Mcgee on 02-03-2024 Estimated GFR (MDRD) Amer 121 mL/min >60 [place] Comment on above: GFR Calc Estimated GFR (MDRD) Non-Af Amer 100 mL/min >60 [place] Comment on above: Non- GFR Calc Serum or plasma calcium raad urement (mass/volume)Ordered By: Cintia Mcgee on 02-03-2024 Calcium [Mass/Vol] 8.8 mg/dL 8.5-10.1 [facility] Serum or plasma creatinine m easurement (mass/volume)Ordered By: Cintia Mcgee on 02-03-2024 Creatinine [Mass/Vol] 0.74 mg/dL 0.55-1.02 [facility] Comment on above: The validity of the calculated GFR & GFRAA in patients over 70 years has not been determined. Clinical correlation is essential. Serum or plasma urea nitroge n measurement (mass/volume)Ordered By: Cintia Mcgee on 02-03-2024 Urea nitrogen [Mass/Vol] 13 mg/dL 7 [place] Thin prep Papanicolaou smear with manual screeningOrdered By: Cintia Mcgee on 02-03-2024 Thin prep Papanicolaou smear with manual screening 4 03-09 [place] [facility] - Chemistry and C hemistry - challengeOrdered By: Cintia Mcgee on 09-10-2023 Free T4 [Mass/Vol] 1.00 ng/dL 0.76-1.46 [facility] No Panel InformationOrdered By: Cintia Mcgee on 09-10-2023 Thyroid Stimulating Hormone (TSH) 1.51 uIU/mL 0.358-3.74 [place] Serum or plasma ferritin thierno surement (mass/volume)Ordered By: Cintia Mcgee on 09-10-2023 Ferritin [Mass/Vol] 64 ng/mL [facility] Absolute lymphocyte countOrd ered By: HEALTH ASSESSMENT on 06-18-2023 Lymphocytes Auto (Unsp spec) [#/Vol] 2.68 10*3/uL 0.83-4.51 [place] Absolute reticulocyte countO rdered By: HEALTH ASSESSMENT on 06-18-2023 Reticulocytes (Bld) [#/Vol] 0.00 10*3/uL 0-5 [place] Basophil percentageOrdered B y: HEALTH ASSESSMENT on 06-18-2023 Basophil percentage 3.9 mg/dL 2.5-4.9 [facility] Bilirubin [Mass/Vol] 0.20 mg/dL 0.20-1.00 [facility] Comment on above: For patients on eltr ombopag therapy, use of Dimension Butler TBIL is not recommended. Chloride [Moles/Vol] 111 mmol/L 98-107 [facility] Cholesterol [Mass/Vol] 133 mg/dL <200 [facility] Comment on above: <200 mg/dL Desirable 200-240 mg/dL Borderline >240 mg/dL High Risk Glucose [Mass/Vol] 119 mg/dL 74-106 [facility] Comment on above: Fasting Glucose resu lt from 100 to 125 mg/dL suggests IMPAIRED HOMEOSTASIS per A.D.A. criteria. LDH [Catalytic activity/Vol] 159 U/L 84-246 [place] Neutrophils (Bld) [#/Vol] 3.1 10*3/uL 2.0-7.7 [place] Potassium [Moles/Vol] 3.8 mmol/L 3.5-5.1 [facility] Protein [Mass/Vol] 6.8 g/dL 6.4-8.2 [facility] Sodium [Moles/Vol] 142 mmol/L 136-145 [facility] Triglyceride [Mass/Vol] 115 mg/dL <199 [facility] Comment on above: The drugs N-Acetylcy steine and Metamizole may falsely depress this assay.Serum Triglycerides Reference Interval Normal <150 mg/dL Borderline high 150 - 199 mg/dL High 200 - 499 mg/dL Very High > or = 500 mg/dL WBC (Bld) [#/Vol] 6.4 10*3/uL 4.4-11.0 [facility] Bilirubin Test strip Ql (U)O rdered By: HEALTH ASSESSMENT on 06-18-2023 Bilirubin Ql (U) Negative Negative [place] Blood erythrocytes count (nu mber/volume)Ordered By: HEALTH ASSESSMENT on 06-18-2023 RBC (Bld) [#/Vol] 4.59 10*6/uL 4.2-5.4 [facility] Blood hemoglobin measurement (mass/volume)Ordered By: HEALTH ASSESSMENT on 06-18-2023 Hemoglobin (Bld) [Mass/Vol] 12.9 g/dL 12.0-15.0 [place] Blood platelet mean volumeOr dered By: HEALTH ASSESSMENT on 06-18-2023 Platelet mean volume (Bld) [Entitic vol] 10.6 fL 6.2-12.0 [place] Determination of erythrocyte mean corpuscular volume (MCV)Ordered By: HEALTH ASSESSMENT on 06-18-2023 MCV (RBC) [Entitic vol] 87.6 fL 81-99 [facility] Direct bilirubinOrdered By: HEALTH ASSESSMENT on 06-18-2023 Bilirubin.direct [Mass/Vol] 0.09 mg/dL 0.00-0.30 [place] Hematocrit Auto (Bld) [Volum e fraction]Ordered By: HEALTH ASSESSMENT on 06-18-2023 Hematocrit (Bld) [Volume fraction] 40.2 % 37-47 [place] Ketones Test strip Ql (U)Ord ered By: HEALTH ASSESSMENT on 06-18-2023 Ketones Ql (U) Negative Negative [facility] [facility] - Chemistry and C hemistry - challengeOrdered By: HEALTH ASSESSMENT on 06-18-2023 ALP [Catalytic activity/Vol] 66 U/L 45-117 [place] ALT [Catalytic activity/Vol] 21 U/L 13-56 [facility] Cholesterol.total/Dotty sterol in HDL [Mass ratio] 2.40 {ratio} [place] CO2 [Moles/Vol] 25.0 mmol/L 21.0-32.0 [place] Globulin (S) [Mass/Vol] 3.8 g/dL 2.2-4.2 [facility] Urea nitrogen/Creatinine [Mass ratio] 15.8 mg/mg 10-20 [facility] - Hematology and Cell countsOrdered By: HEALTH ASSESSMENT on 06-18-2023 Erythrocyte distribution width (RBC) [Entitic vol] 42.5 fL 35.1-43.9 [facility] Erythrocyte distribution width (RBC) [Ratio] 13.3 % 11.6-14.6 [place] MCH (RBC) [Entitic mass] 28.1 pg 27.0-32.0 [facility] Nucleated RBC/100 WBC (Bld) [Ratio] 0 % 0-5 [place] MCHC Auto (RBC) [Mass/Vol]Or dered By: HEALTH ASSESSMENT on 06-18-2023 MCHC (RBC) [Mass/Vol] 32.1 g/dL 32-36 [facility] Nitrite Test strip Ql (U)Ord ered By: HEALTH ASSESSMENT on 06-18-2023 Nitrite Ql (U) Negative Negative [place] No Panel InformationOrdered By: HEALTH ASSESSMENT on 06-18-2023 Estimated GFR (MDRD) Amer 130 mL/min >60 [place] Comment on above: GFR Calc Estimated GFR (MDRD) Non-Af Amer 107 mL/min >60 [place] Comment on above: Non- GFR Calc Platelets bldOrdered By: A LT ASSESSMENT on 06-18-2023 Platelets (Bld) [#/Vol] 314 10*3/uL 150-450 [place] Protein Test strip Ql (U)Ord ered By: HEALTH ASSESSMENT on 06-18-2023 Protein Ql (U) Negative Negative [place] Segmented neutrophils/100 WB C Auto (Bld)Ordered By: HEALTH ASSESSMENT on 06-18-2023 Segmented neutrophils/100 WBC (Bld) 48.3 % 47-70 [place] Serum or plasma albumin raad urement (mass/volume)Ordered By: HEALTH ASSESSMENT on 06-18-2023 Albumin [Mass/Vol] 3.0 g/dL 3.2-5.0 [facility] Serum or plasma albumin/glob ulin mass ratioOrdered By: HEALTH ASSESSMENT on 06-18-2023 Albumin/Globulin [Mass ratio] 0.8 {ratio} 0.9-2.4 [place] Serum or plasma calcium raad urement (mass/volume)Ordered By: HEALTH ASSESSMENT on 06-18-2023 Calcium [Mass/Vol] 8.6 mg/dL 8.5-10.1 [facility] Serum or plasma cholesterol in HDL measurement (mass/volume)Ordered By: HEALTH ASSESSMENT on 06-18-2023 Cholesterol in HDL [Mass/Vol] 56 mg/dL >40 [place] Comment on above: The drugs N-Acetylcy steine and Metamizole may falsely depress this assay. Reference Range HDL <40 mg/dL Low HDL Cholesterol HDL >or= 60 mg/dL High HDL Cholesterol Serum or plasma cholesterol in VLDL measurement (mass/volume)Ordered By: HEALTH ASSESSMENT on 06-18-2023 Cholesterol in VLDL [Mass/Vol] 23 mg/dL 5-40 [place] Serum or plasma creatinine m easurement (mass/volume)Ordered By: HEALTH ASSESSMENT on 06-18-2023 Creatinine [Mass/Vol] 0.70 mg/dL 0.55-1.02 [facility] Comment on above: The validity of the calculated GFR & GFRAA in patients over 70 years has not been determined. Clinical correlation is essential. Serum or plasma low density lipoprotein (LDL) cholesterol measurement (mass/volume)Ordered By: HEALTH ASSESSMENT on 06-18-2023 Cholesterol in LDL [Mass/Vol] 54 mg/dL 0-130 [place] Serum or plasma urea nitroge n measurement (mass/volume)Ordered By: HEALTH ASSESSMENT on 06-18-2023 Urea nitrogen [Mass/Vol] 11 mg/dL 7-18 [place] Serum or plasma uric acid me asurement (mass/volume)Ordered By: HEALTH ASSESSMENT on 06-18-2023 Urate [Mass/Vol] 4.6 mg/dL 2.6-6.0 [place] Comment on above: The drugs N-Acetylcy steine and Metamizole may falsely depress this assay. Thin prep Papanicolaou smear with manual screeningOrdered By: HEALTH ASSESSMENT on 06-18-2023 Thin prep Papanicolaou smear with manual screening 10 U/L 15-37 [place] Thin prep Papanicolaou smear with manual screening 6 5-15 [place] Urine blood detectionOrdered By: HEALTH ASSESSMENT on 06-18-2023 RBC Ql (U) 10 /ul Negative [place] Urine clarityOrdered By: HEA LT ASSESSMENT on 06-18-2023 Clarity (U) Clear Clear [place] Urine color determinationOrd ered By: HEALTH ASSESSMENT on 06-18-2023 Color (U) Yellow Yellow [place] Urine glucose detectionOrder ed By: HEALTH ASSESSMENT on 06-18-2023 Glucose Ql (U) Normal mg/dl Normal [place] Urine leukocyte esterase det ection by dipstickOrdered By: HEALTH ASSESSMENT on 06-18-2023 Leukocyte esterase Test strip Ql (U) 500 /ul Negative [place] Urine pHOrdered By: HEALTH A SSESSMENT on 06-18-2023 pH (U) 6.5 [pH] 5.0 - 8.0 [place] Urine specific gravity measu rementOrdered By: HEALTH ASSESSMENT on 06-18-2023 Specific gravity (U) [Rel density] 1.015 1.002-1.03 0 [place] Urobilinogen Auto test strip Ql (U)Ordered By: HEALTH ASSESSMENT on 06-18-2023 Urobilinogen Ql (U) Normal mg/dl Normal [facility] Absolute lymphocyte countOrd ered By: Dr. Mcgee on 01-27-2023 Lymphocytes Auto (Unsp spec) [#/Vol] 2.06 10*3/uL 0.83-4.51 [place] Basophil percentageOrdered B y: Dr. Mcgee on 01-27-2023 Basophils/100 WBC (Bld) 0.5 % 0-1 [facility] Bilirubin [Mass/Vol] 0.30 mg/dL 0.20-1.00 [facility] Comment on above: For patients on eltr ombopag therapy, use of Dimension Butler TBIL is not recommended. Chloride [Moles/Vol] 107 mmol/L 98-107 [facility] Eosinophils/100 WBC (Bld) 1.4 % 0-5 [place] Glucose [Mass/Vol] 99 mg/dL 74-106 [facility] Neutrophils (Bld) [#/Vol] 4.7 10*3/uL 2.0-7.7 [place] Neutrophils/100 WBC (Bld) 64.1 % 47-70 [place] Potassium [Moles/Vol] 3.8 mmol/L 3.5-5.1 [facility] Protein [Mass/Vol] 6.9 g/dL 6.4-8.2 [facility] Sodium [Moles/Vol] 136 mmol/L 136-145 [facility] WBC (Bld) [#/Vol] 7.3 10*3/uL 4.4-11.0 [facility] Blood erythrocytes count (nu mber/volume)Ordered By: Dr. Mcgee on 01-27-2023 RBC (Bld) [#/Vol] 4.52 10*6/uL 4.2-5.4 [facility] Blood hemoglobin measurement (mass/volume)Ordered By: Dr. Mcgee on 01-27-2023 Hemoglobin (Bld) [Mass/Vol] 12.8 g/dL 12.0-15.0 [place] Blood lymphocytes/100 leukoc ytesOrdered By: Dr. Mcgee on 01-27-2023 Lymphocytes/100 WBC (Bld) 28.2 % 19-41 [place] Blood monocytes/100 leukocyt esOrdered By: Dr. Mcgee on 01-27-2023 Monocytes/100 WBC (Bld) 5.5 % 0-10 [facility] Blood platelet mean volumeOr dered By: Dr. Mcgee on 01-27-2023 Platelet mean volume (Bld) [Entitic vol] 10.9 fL 6.2-12.0 [place] Determination of erythrocyte mean corpuscular volume (MCV)Ordered By: Dr. Mcgee on 01-27-2023 MCV (RBC) [Entitic vol] 86.7 fL 81-99 [facility] Hematocrit Auto (Bld) [Volum e fraction]Ordered By: Dr. Mcgee on 01-27-2023 Hematocrit (Bld) [Volume fraction] 39.2 % 37-47 [place] [facility] - Chemistry and C hemistry - challengeOrdered By: Dr. Mcgee on 01-27-2023 ALP [Catalytic activity/Vol] 70 U/L 45-117 [place] ALT [Catalytic activity/Vol] 24 U/L 13-56 [place] CO2 [Moles/Vol] 25.0 mmol/L 21.0-32.0 [place] Globulin (S) [Mass/Vol] 3.6 g/dL 2.2-4.2 [facility] Urea nitrogen/Creatinine [Mass ratio] 27.2 mg/mg 10-20 [place] [facility] - Hematology and Cell countsOrdered By: Dr. Mcgee on 01-27-2023 Erythrocyte distribution width (RBC) [Entitic vol] 42.1 fL 35.1-43.9 [place] Erythrocyte distribution width (RBC) [Ratio] 13.5 % 11.6-14.6 [place] Immature granulocytes/100 WBC (Bld) 0.300 % 0.0-0.9 [place] Comment on above: IG% - Immature Granu locytes (promyelocytes, myelocytes and metamyelocytes) > 1% indicates that a LEFT SHIFT is Present. MCH (RBC) [Entitic mass] 28.3 pg 27.0-32.0 [place] Nucleated RBC/100 WBC (Bld) [Ratio] 0 % 0-5 [place] MCHC Auto (RBC) [Mass/Vol]Or dered By: Dr. Mcgee on 01-27-2023 MCHC (RBC) [Mass/Vol] 32.7 g/dL 32-36 [facility] No Panel InformationOrdered By: Dr. Mcgee on 01-27-2023 Estimated GFR (MDRD) Amer 158 mL/min >60 [place] Comment on above: GFR Calc Estimated GFR (MDRD) Non-Af Amer 131 mL/min >60 [place] Comment on above: Non- GFR Calc Thyroid Stimulating Hormone (TSH) 2.10 uIU/mL 0.358-3.74 [place] Platelets bldOrdered By: Dr. Mcgee on 01-27-2023 Platelets (Bld) [#/Vol] 293 10*3/uL 150-450 [place] Serum or plasma albumin raad urement (mass/volume)Ordered By: Dr. Mcgee on 01-27-2023 Albumin [Mass/Vol] 3.3 g/dL 3.2-5.0 [facility] Serum or plasma albumin/glob ulin mass ratioOrdered By: Dr. Mcgee on 01-27-2023 Albumin/Globulin [Mass ratio] 0.9 {ratio} 0.9-2.4 [place] Serum or plasma calcium raad urement (mass/volume)Ordered By: Dr. Mcgee on 01-27-2023 Calcium [Mass/Vol] 8.6 mg/dL 8.5-10.1 [facility] Serum or plasma creatinine m easurement (mass/volume)Ordered By: Dr. Mcgee on 01-27-2023 Creatinine [Mass/Vol] 0.59 mg/dL 0.55-1.02 [facility] Comment on above: The validity of the calculated GFR & GFRAA in patients over 70 years has not been determined. Clinical correlation is essential. Serum or plasma thyroperoxid ase antibody assay (units/volume)Ordered By: Dr. Mcgee on 01-27-2023 TPO Ab Qn 10 [IU]/mL 0-34 [place] Comment on above: Performed at: [facility] [employer] [place] [id number] Director: Rouqe Soriano PhD, Phone: [phone] Serum or plasma urea nitroge n measurement (mass/volume)Ordered By: Dr. Mcgee on 01-27-2023 Urea nitrogen [Mass/Vol] 16 mg/dL 7-18 [place] Thin prep Papanicolaou smear with manual screeningOrdered By: Dr. Mcgee on 01-27-2023 Thin prep Papanicolaou smear with manual screening 13 U/L 15-37 [place] Thin prep Papanicolaou smear with manual screening 4 5-15 [place] Influenza virus A and B and SARS-CoV-2 (COVID-19) Ag panel - Upper respiratory specimOrdered By: Dr. Alves on 09-30-2022 SARS-CoV-2 & FLU Antigen (Rapid) Influenzae A [place] RSV Ag EIAOrdered By: Dr. Sun martínez on 09-30-2022 RSV Ag Immune stain Ql (Tiss) [place] Serum or plasma progesterone measurement (mass/volume)Ordered By: Cari Holman on 09-23-2022 Progesterone [Mass/Vol] 2.87 ng/mL See Comment [place] Comment on above: Progesterone Referen ce Table: UNITS Female: Follicular 0.15 - 1.40 ng/mL Luteal 3.34 - 25.56 ng/mL Mid-luteal 4.44 - 28.03 ng/mL Postmenopausal 0.0 - 0.73 ng/mL : 1st Trimester 11.22 - 90.00 ng/mL 2nd Trimester 25.55 - 89.40 ng/mL 3rd Trimester 48.40 -422.50 ng/mL No Panel Informationon 08-25 POC Bacterial Vaginitis (Rapid) Negative [place] Work Phone: Serum or plasma prolactin me asurement (mass/volume)on 08-25-2022 Prolactin [Mass/Vol] 15.5 ng/mL [facility] Work Phone: Comment on above: NORMAL REFERENCE RAN GES FEMALE NON- 2.2 - 30.3 ng/mL 8.1 - 347.6 ng/mL POST-MENOPAUSAL 0.7 - 31.5 ng/mL MALE 2.5 - 17.4 ng/mL No Panel Informationon 07-30 Dehydroepiandrosterone Sulfate 222.0 ug/dL 84.8-378.0 [place] Work Phone: Miscellaneous Test See comment [facility] Work Phone: Comment on above: Sent directly to [facility] per ordering physician. Serum or plasma prolactin me asurement (mass/volume)on 07-30-2022 Prolactin [Mass/Vol] 43.7 ng/mL [facility] Work Phone: Comment on above: NORMAL REFERENCE RAN GES FEMALE NON- 2.2 - 30.3 ng/mL 8.1 - 347.6 ng/mL POST-MENOPAUSAL 0.7 - 31.5 ng/mL MALE 2.5 - 17.4 ng/mL Serum or plasma testosterone free measurement (mass/volume)on 07-30-2022 Testosterone Free [Mass/Vol] 1.2 pg/mL 0.0-4.2 [place] Work Phone: Comment on above: Performed at: [address] [id number] Director: Roque Soriano PhD, Phone: [phone] at: - [facility] [id number] Director: Stefano Lopez MD, Phone: [phone] Absolute lymphocyte counton 07-08-2022 Lymphocytes Auto (Unsp spec) [#/Vol] 2.12 10*3/uL 0.83-4.51 [place] Work Phone: [phone] Absolute reticulocyte counto n 07-08-2022 Reticulocytes (Bld) [#/Vol] 0.00 10*3/uL 0-5 [place] Work Phone: [phone] Basophil percentageon 2021 Basophil percentage 3.5 mg/dL 2.5-4.9 [facility] Work Phone: [phone] Bilirubin [Mass/Vol] 0.40 mg/dL 0.20-1.00 [facility] Work Phone: [phone] Comment on above: For patients on eltr ombopag therapy, use of Dimension [place] TBIL is not recommended. Chloride [Moles/Vol] 105 mmol/L 98-107 [facility] Work Phone: [phone] Cholesterol [Mass/Vol] 143 mg/dL <200 [facility] Work Phone: Comment on above: <200 mg/dL Desirable 200-240 mg/dL Borderline >240 mg/dL High Risk Glucose [Mass/Vol] 95 mg/dL 74-106 [facility] Work Phone: [phone] Neutrophils (Bld) [#/Vol] 3.0 10*3/uL 2.0-7.7 [place] Work Phone: [phone] Potassium [Moles/Vol] 3.6 mmol/L 3.5-5.1 [facility] Work Phone: [phone] Protein [Mass/Vol] 7.1 g/dL 6.4-8.2 [facility] Work Phone: [phone] Sodium [Moles/Vol] 139 mmol/L 136-145 [facility] Work Phone: [phone] Triglyceride [Mass/Vol] 69 mg/dL <199 [facility] Work Phone: [phone] Comment on above: The drugs N-Acetylcy steine and Metamizole may falsely depress this assay.Serum Triglycerides Reference Interval Normal <150 mg/dL Borderline high 150 - 199 mg/dL High 200 - 499 mg/dL Very High > or = 500 mg/dL WBC (Bld) [#/Vol] 5.6 10*3/uL 4.4-11.0 [facility] Work Phone: Bilirubin Test strip Ql (U)o n 07-08-2022 Bilirubin Ql (U) Negative Negative [place] Work Phone: Blood erythrocytes count (nu mber/volume)on 07-08-2022 RBC (Bld) [#/Vol] 4.73 10*6/uL 4.2-5.4 [facility] Work Phone: [phone] Blood hemoglobin measurement (mass/volume)on 07-08-2022 Hemoglobin (Bld) [Mass/Vol] 13.2 g/dL 12.0-15.0 [place] Work Phone: [phone] Blood platelet mean volumeon 07-08-2022 Platelet mean volume (Bld) [Entitic vol] 11.0 fL 6.2-12.0 [place] Work Phone: Determination of erythrocyte mean corpuscular volume (MCV)on 07-08-2022 MCV (RBC) [Entitic vol] 86.0 fL 81-99 [facility] Work Phone: Direct bilirubinon Bilirubin.direct [Mass/Vol] 0.10 mg/dL 0.00-0.30 [place] Work Phone: [phone] Hematocrit Auto (Bld) [Volum e fraction]on 07-08-2022 Hematocrit (Bld) [Volume fraction] 40.7 % 37-47 [place] Work Phone: [phone] Iron measurement (mass/mass) on 07-08-2022 Iron (Unsp spec) [Mass/Mass] 65 ug/dL 50-170 [place] Work Phone: [phone] Ketones Test strip Ql (U)on 07-08-2022 Ketones Ql (U) 5 mg/dl Negative [place] Work Phone: Laboratory - Chemistry and C hemistry - challengeon 07-08-2022 Cobalamin (Vitamin B12) [Mass/Vol] 725 pg/mL 211-911 [place] Work Phone: Free T4 [Mass/Vol] 1.03 ng/dL 0.76-1.46 [facility] Work Phone: ALP [Catalytic activity/Vol] 73 U/L 45-117 [place] Work Phone: ALT [Catalytic activity/Vol] 23 U/L 13-56 [place] Work Phone: Cholesterol.total/Dotty sterol in HDL [Mass ratio] 2.60 {ratio} [place] Work Phone: CO2 [Moles/Vol] 27.0 mmol/L 21.0-32.0 [place] Work Phone: Globulin (S) [Mass/Vol] 3.7 g/dL 2.2-4.2 [facility] Work Phone: [phone] Urea nitrogen/Creatinine [Mass ratio] 25.0 mg/mg 10-20 [place] Work Phone: Laboratory - Hematology and Cell countson 07-08-2022 Erythrocyte distribution width (RBC) [Entitic vol] 41.9 fL 35.1-43.9 [place] Work Phone: Erythrocyte distribution width (RBC) [Ratio] 13.3 % 11.6-14.6 [place] Work Phone: MCH (RBC) [Entitic mass] 27.9 pg 27.0-32.0 [place] Work Phone: Nucleated RBC/100 WBC (Bld) [Ratio] 0 % 0-5 [place] Work Phone: MCHC Auto (RBC) [Mass/Vol]on 07-08-2022 MCHC (RBC) [Mass/Vol] 32.4 g/dL 32-36 [facility]: [phone] Nitrite Test strip Ql (U)on 07-08-2022 Nitrite Ql (U) Negative Negative [place] Work Phone: No Panel Informationon 07-08 Thyroid Stimulating Hormone (TSH) 2.03 uIU/mL 0.358-3.74 [place] Work Phone: Vitamin D 25-Hydroxy 27.3 ng/mL [facility] Work Phone: Comment on above: Vitamin D 25(OH) Sta tus Range Deficiency <20 ng/mL (50nmol/L) Insufficiency 20 - 30 ng/mL (50 - 75 nmol/L) Sufficiency 30 - 100 ng/mL (75 - 250 nmol/L) Toxicity >100 ng/mL (>250 nmol/L) Estimated GFR (MDRD) Amer 155 mL/min >60 [place] Work Phone: Comment on above: GFR Calc Estimated GFR (MDRD) Non-Af Amer 128 mL/min >60 [place] Work Phone: Comment on above: Non- GFR Calc Platelets bldon 07-08-2022 Platelets (Bld) [#/Vol] 293 10*3/uL 150-450 [place] Work Phone: Protein Test strip Ql (U)on 07-08-2022 Protein Ql (U) 15 mg/dl Negative [place] Work Phone: Segmented neutrophils/100 WB C Auto (Bld)on 07-08-2022 Segmented neutrophils/100 WBC (Bld) 52.5 % 47-70 [place] Work Phone: Serum or plasma albumin raad urement (mass/volume)on 07-08-2022 Albumin [Mass/Vol] 3.4 g/dL 3.2-5.0 [facility] Work Phone: [phone] Serum or plasma albumin/glob ulin mass ratioon 07-08-2022 Albumin/Globulin [Mass ratio] 0.9 {ratio} 0.9-2.4 [place] Work Phone: Serum or plasma calcium raad urement (mass/volume)on 07-08-2022 Calcium [Mass/Vol] 8.8 mg/dL 8.5-10.1 [facility] Work Phone: Serum or plasma cholesterol in HDL measurement (mass/volume)on 07-08-2022 Cholesterol in HDL [Mass/Vol] 55 mg/dL >40 [place] Work Phone: Comment on above: The drugs N-Acetylcy steine and Metamizole may falsely depress this assay. Reference Range HDL <40 mg/dL Low HDL Cholesterol HDL >or= 60 mg/dL High HDL Cholesterol Serum or plasma cholesterol in VLDL measurement (mass/volume)on 07-08-2022 Cholesterol in VLDL [Mass/Vol] 14 mg/dL 5-40 [place] Work Phone: Serum or plasma cortisol thierno surement (mass/volume)on 07-08-2022 Cortisol [Mass/Vol] 17.50 ug/dL 3.44-22.45 [facility] Work Phone: Comment on above: Adult (AM) 5.27 - 22 .45 ug/dL Adult (PM) 3.44 - 16.76 ug/dLPlease note revised CORTISOL reference range effective 2019. Serum or plasma creatinine m easurement (mass/volume)on 07-08-2022 Creatinine [Mass/Vol] 0.60 mg/dL 0.55-1.02 [facility] Work Phone: Comment on above: The validity of the calculated GFR & GFRAA in patients over 70 years has not been determined. Clinical correlation is essential. Serum or plasma ferritin thierno surement (mass/volume)on 07-08-2022 Ferritin [Mass/Vol] 41 ng/mL 8-252 [facility] Work Phone: Serum or plasma low density lipoprotein (LDL) cholesterol measurement (mass/volume)on 07-08-2022 Cholesterol in LDL [Mass/Vol] 74 mg/dL 0-130 [place] Work Phone: Serum or plasma urea nitroge n measurement (mass/volume)on 07-08-2022 Urea nitrogen [Mass/Vol] 15 mg/dL 7-18 [place] Work Phone: Serum or plasma uric acid me asurement (mass/volume)on 07-08-2022 Urate [Mass/Vol] 4.9 mg/dL 2.6-6.0 [place] Work Phone: Comment on above: The drugs N-Acetylcy steine and Metamizole may falsely depress this assay. Thin prep Papanicolaou smear with manual screeningon 07-08-2022 Thin prep Papanicolaou smear with manual screening 13 U/L 15-37 [place] Work Phone: Thin prep Papanicolaou smear with manual screening 7 5-15 [place] Work Phone: Thin prep Papanicolaou smear with manual screening 188 U/L 84-246 [place] Work Phone: Urine blood detectionon 06-26 RBC Ql (U) 10 /ul Negative [place] Work Phone: Urine clarityon 07-08-2022 Clarity (U) Sl. Cloudy Clear [place] Work Phone: Urine color determinationon 07-08-2022 Color (U) Yellow Yellow [place] Work Phone: Urine glucose detectionon Glucose Ql (U) Normal mg/dl Normal [place] Work Phone: Urine leukocyte esterase det ection by dipstickon 07-08-2022 Leukocyte esterase Test strip Ql (U) 25 /ul Negative [place] Work Phone: [phone] Urine pHon 07-08-2022 pH (U) 6.0 [pH] 5.0 - 8.0 [place] Work Phone: Urine specific gravity measu rementon 07-08-2022 Specific gravity (U) [Rel density] 1.025 1.002-1.03 0 [place] Work Phone: Urobilinogen Auto test strip Ql (U)on 07-08-2022 Urobilinogen Ql (U) Normal mg/dl Normal [facility] Work Phone: Serum or plasma choriogonado tropin detectionon 04-16-2022 HCG ( test) Ql < 1 mIU/mL <4 [facility] Work Phone: Comment on above: hCG levels with Gest ational AgeGestational Age hCG mIU/mL (IU/L)0.2 - 1 week 5 - 501-2 weeks 50 - 5002-3 weeks 100 - 66409-2 weeks 500 - 447814-0 weeks 1000 - 319142-6 weeks 08239 - 100,0006-8 weeks 21822 - 200,0002-3 months 38226 - 100,000 Basophil percentageon 2021 Chloride [Moles/Vol] 106 mmol/L 98-107 [facility] Work Phone: Glucose [Mass/Vol] 113 mg/dL 74-106 [facility] Work Phone: Comment on above: Fasting Glucose resu lt from 100 to 125 mg/dL suggests IMPAIRED HOMEOSTASIS per A.D.A. criteria. Potassium [Moles/Vol] 3.4 mmol/L 3.5-5.1 [facility] Work Phone: Sodium [Moles/Vol] 139 mmol/L 136-145 [facility] Work Phone: WBC (Bld) [#/Vol] 8.4 10*3/uL 4.4-11.0 [facility] Work Phone: Blood erythrocytes count (nu mber/volume)on 03-06-2022 RBC (Bld) [#/Vol] 4.37 10*6/uL 4.2-5.4 [facility] Work Phone: Blood hemoglobin measurement (mass/volume)on 03-06-2022 Hemoglobin (Bld) [Mass/Vol] 12.4 g/dL 12.0-15.0 [place] Work Phone: Blood platelet mean volumeon 03-06-2022 Platelet mean volume (Bld) [Entitic vol] 11.0 fL 6.2-12.0 [place] Work Phone: Determination of erythrocyte mean corpuscular volume (MCV)on 03-06-2022 MCV (RBC) [Entitic vol] 85.6 fL 81-99 [facility] Work Phone: Erythrocyte sedimentation ra rosanne 03-06-2022 ESR (Bld) [Velocity] 26 mm/h 0-30 [facility] Work Phone: Hematocrit Auto (Bld) [Volum e fraction]on 03-06-2022 Hematocrit (Bld) [Volume fraction] 37.4 % 37-47 [place] Work Phone: Laboratory - Chemistry and C hemistry - challengeon 03-06-2022 CO2 [Moles/Vol] 25.0 mmol/L 21.0-32.0 [place] Work Phone: Magnesium [Mass/Vol] 2.1 mg/dL 1.6-2.6 [facility] Work Phone: Urea nitrogen/Creatinine [Mass ratio] 20.1 mg/mg 10-20 [place] Work Phone: Laboratory - Hematology and Cell countson 03-06-2022 Erythrocyte distribution width (RBC) [Entitic vol] 41.5 fL 35.1-43.9 [place] Work Phone: Erythrocyte distribution width (RBC) [Ratio] 13.3 % 11.6-14.6 [place] Work Phone: MCH (RBC) [Entitic mass] 28.4 pg 27.0-32.0 [place] Work Phone: MCHC Auto (RBC) [Mass/Vol]on 03-06-2022 MCHC (RBC) [Mass/Vol] 33.2 g/dL 32-36 [facility] Work Phone: No Panel Informationon 03-06 Estimated GFR (MDRD) Amer 143 mL/min >60 [place] Work Phone: Comment on above: GFR Calc Estimated GFR (MDRD) Non-Af Amer 118 mL/min >60 [place] Work Phone: Comment on above: Non- GFR Calc Platelets bldon 03-06-2022 Platelets (Bld) [#/Vol] 342 10*3/uL 150-450 [place] Work Phone: Serum or plasma calcium raad urement (mass/volume)on 03-06-2022 Calcium [Mass/Vol] 8.9 mg/dL 8.5-10.1 [facility] Work Phone: Serum or plasma creatinine m easurement (mass/volume)on 03-06-2022 Creatinine [Mass/Vol] 0.65 mg/dL 0.55-1.02 [facility] Work Phone: Comment on above: The validity of the calculated GFR & GFRAA in patients over 70 years has not been determined. Clinical correlation is essential. Serum or plasma urea nitroge n measurement (mass/volume)on 03-06-2022 Urea nitrogen [Mass/Vol] 13 mg/dL 7-18 [place] Work Phone: Thin prep Papanicolaou smear with manual screeningon 03-06-2022 Thin prep Papanicolaou smear with manual screening 8 5-15 [place] Work Phone: No Panel Informationon 11-25 D-Dimer Quantitative (PE/DVT) 0.55 FEU/ug/m 0.27-0.49 [place] Work Phone: Comment on above: D-Dimer ELEVATED (>0 .49): Additional studies and clinicalassessments are indicated to conclude diagnosis of:Deep Vein Thrombosis (DVT) or Pulmonary Embolism (PE)RESULTS CALLED TO Emory JOHNSON RN P 11/25/21 Kristi Lundy.REPORT READ BACK BY SAME. Absolute lymphocyte counton 11-21-2021 Lymphocytes Auto (Unsp spec) [#/Vol] 2.70 10*3/uL 0.83-4.51 [place] Work Phone: Basophil percentageon 2021 Basophils/100 WBC (Bld) 0.2 % 0-1 [facility] Work Phone: Chloride [Moles/Vol] 105 mmol/L 98-107 [facility] Work Phone: Eosinophils/100 WBC (Bld) 0.9 % 0-5 [place] Work Phone: Glucose [Mass/Vol] 106 mg/dL 74-106 [facility] Work Phone: Comment on above: Fasting Glucose resu lt from 100 to 125 mg/dL suggests IMPAIRED HOMEOSTASIS per A.D.A. criteria. Neutrophils (Bld) [#/Vol] 5.2 10*3/uL 2.0-7.7 [place] Work Phone: Neutrophils/100 WBC (Bld) 61.4 % 47-70 [place] Work Phone: Potassium [Moles/Vol] 3.7 mmol/L 3.5-5.1 [facility] Work Phone: Sodium [Moles/Vol] 137 mmol/L 136-145 [facility] Work Phone: WBC (Bld) [#/Vol] 8.5 10*3/uL 4.4-11.0 [facility] Work Phone: Beta hCG serum qualon 2021 Beta HCG ( test) Ql Negative [place] Work Phone: Blood erythrocytes count (nu mber/volume)on 11-21-2021 RBC (Bld) [#/Vol] 4.72 10*6/uL 4.2-5.4 [facility] Work Phone: Blood hemoglobin measurement (mass/volume)on 11-21-2021 Hemoglobin (Bld) [Mass/Vol] 13.2 g/dL 12.0-15.0 [place] Work Phone: Blood lymphocytes/100 leukoc yteson 11-21-2021 Lymphocytes/100 WBC (Bld) 31.9 % 19-41 [place] Work Phone: Blood monocytes/100 leukocyt eson 11-21-2021 Monocytes/100 WBC (Bld) 5.2 % 0-10 [facility] Work Phone: Blood platelet mean volumeon 11-21-2021 Platelet mean volume (Bld) [Entitic vol] 10.8 fL 6.2-12.0 [place] Work Phone: Determination of erythrocyte mean corpuscular volume (MCV)on 11-21-2021 MCV (RBC) [Entitic vol] 84.7 fL 81-99 [facility] Work Phone: [phone] Hematocrit Auto (Bld) [Volum e fraction]on 11-21-2021 Hematocrit (Bld) [Volume fraction] 40.0 % 37-47 [place] Work Phone: [phone] Laboratory - Chemistry and C hemistry - challengeon 11-21-2021 CO2 [Moles/Vol] 27.0 mmol/L 21.0-32.0 [place] Work Phone: [phone] Urea nitrogen/Creatinine [Mass ratio] 16.1 mg/mg 10-20 [place] Work Phone: [phone] Laboratory - Hematology and Cell countson 11-21-2021 Erythrocyte distribution width (RBC) [Entitic vol] 38.8 fL 35.1-43.9 [place] Work Phone: [phone] Erythrocyte distribution width (RBC) [Ratio] 12.6 % 11.6-14.6 [place] Work Phone: [phone] Immature granulocytes/100 WBC (Bld) 0.400 % 0.0-0.9 [place] Work Phone: [phone] Comment on above: IG% - Immature Granu locytes (promyelocytes, myelocytes and metamyelocytes) > 1% indicates that a LEFT SHIFT is Present. MCH (RBC) [Entitic mass] 28.0 pg 27.0-32.0 [place] Work Phone: [phone] Nucleated RBC/100 WBC (Bld) [Ratio] 0 % 0-5 [place] Work Phone: [phone] MCHC Auto (RBC) [Mass/Vol]on 11-21-2021 MCHC (RBC) [Mass/Vol] 33.0 g/dL 32-36 [facility] Work Phone: No Panel Informationon 11-21 D-Dimer Quantitative (PE/DVT) 0.64 FEU/ug/m 0.27-0.49 [place] Work Phone: Comment on above: CRITICAL VALUE VERIF IED. CALLED TO WALT [id number] Sejal Rogel.RESULTS READ BACK BY SAME . D-Dimer ELEVATED (>0.49): Additional studies and clinicalassessments are indicated to conclude diagnosis of:Deep Vein Thrombosis (DVT) or Pulmonary Embolism (PE) Estimated Creatinine Clearance Calc 100.03 ml/min [place] Work Phone: Estimated GFR (MDRD) Amer 134 mL/min >60 [place] Work Phone: Comment on above: GFR Calc Estimated GFR (MDRD) Non-Af Amer 110 mL/min >60 [place] Work Phone: Comment on above: Non- GFR Calc Troponin I High Sensitivity < 3 pg/mL 3.0-54.0 [place] Work Phone: Comment on above: Please Note: New Mansi t Units and Gender Specific Reference Ranges. For more information see Policy Stat Procedure [place] High Sensitivity Troponin (TNIH) and attachments. Platelets bldon 11-21-2021 Platelets (Bld) [#/Vol] 331 10*3/uL 150-450 [place] Work Phone: Serum or plasma calcium raad urement (mass/volume)on 11-21-2021 Calcium [Mass/Vol] 8.7 mg/dL 8.5-10.1 [facility] Work Phone: Serum or plasma creatinine m easurement (mass/volume)on 11-21-2021 Creatinine [Mass/Vol] 0.68 mg/dL 0.55-1.02 [facility] Work Phone: Comment on above: The validity of the calculated GFR & GFRAA in patients over 70 years has not been determined. Clinical correlation is essential. Serum or plasma urea nitroge n measurement (mass/volume)on 11-21-2021 Urea nitrogen [Mass/Vol] 11 mg/dL 7-18 [place] Work Phone: Thin prep Papanicolaou smear with manual screeningon 11-21-2021 Thin prep Papanicolaou smear with manual screening 5 5-15 [place] Work Phone: Laboratory - Microbiology an d Antimicrobial susceptibilityon 11-12-2021 SARS-CoV-2 (COVID-19) RNA JAMARCUS+probe Ql (Unsp spec) Detected [place] Work Phone: Laboratory - Microbiology an d Antimicrobial susceptibilityon 11-11-2021 SARS-CoV-2 (COVID-19) RNA JAMARCUS+probe Ql (Unsp spec) Not detected [place] Work Phone: Gram stain for investigation of transfusion reaction Microscopic observation Gram stain Nom (Unsp spec) [place] Work Phone: Influenza virus A and B and SARS-CoV-2 (COVID-19) Ag panel - Upper respiratory specim SARS-CoV-2 & FLU Antigen (Rapid) Influenzae A [place] Work Phone: RSV Ag EIA RSV Ag Immune stain Ql (Tiss) [place] Work Phone: Thin prep Papanicolaou smear with manual screening Cytopathology procedure, preparation of smear, genital source Neisseria or beta-hemolytic Streptococcus isolated. [place] Work Phone: Thin prep Papanicolaou smear with manual screening Neisseria or beta-hemolytic Streptococcus isolated. [place] Work Phone: Vital Signs Date Time Vital Sign Value Performing Clinician Johnny tavares 05-12-2025 06:47-0400 Body mass index (BMI) [Ratio] 42.7 kg/m2 Lala TRIPLETT Work Phone: [place] 05-12-2025 06:47-0400 Body weight 109.31 kg Lala TRIPLETT Work Phone: [place] 05-12-2025 06:47-0400 Diastolic blood pressure 84 mm[Hg] Lala Ybarra VENDING MACHINE REPAIRER-C Work Phone: [place] 05-12-2025 06:47-0400 Heart rate 80 /min Lala Ybarra VENDING MACHINE REPAIRER-C Work Phone: [place] 05-12-2025 06:47-0400 Respiratory rate 18 /min Lala Ybarra VENDING MACHINE REPAIRER-C Work Phone: [place] 05-12-2025 06:47-0400 SaO2% (BldA) [Mass fraction] 100 % Lala Ybarra VENDING MACHINE REPAIRER-C Work Phone: [place] 05-12-2025 06:47-0400 Systolic blood pressure 125 mm[Hg] Lala Ybarra VENDING MACHINE REPAIRER-C Work Phone: [place] 03-15-2025 09:26-0400 Body weight 115.21 kg Scottie Chance MD Work Phone: [facility] 03-15-2025 09:26-0400 Diastolic blood pressure 86 mm[Hg] Scottie Chance MD Work Phone: [facility] 03-15-2025 09:26-0400 Systolic blood pressure 136 mm[Hg] Scottie Chance MD Work Phone: [facility] 03-08-2025 08:44-0400 Body weight 115.67 kg Scottie Chance MD Work Phone: [facility] 03-08-2025 08:44-0400 Diastolic blood pressure 82 mm[Hg] Scottie Chance MD Work Phone: [facility] 03-08-2025 08:44-0400 Systolic blood pressure 122 mm[Hg] Scottie Chance MD Work Phone: [facility] 01-27-2025 15:33-0400 Body height 160.02 cm Lala Ybarra VENDING MACHINE REPAIRER-C Work Phone: [place] 01-27-2025 15:33-0400 Body mass index (BMI) [Ratio] 45 kg/m2 Lala Ybarra VENDING MACHINE REPAIRER-C Work Phone: 8(097)754-260742 [place] [address] 01-27-2025 15:33-0400 Body weight 115.32 kg Lala Ybarra VENDING MACHINE REPAIRER-C Work Phone: 6(121)990-752942 [place] [address] 01-27-2025 15:33-0400 Diastolic blood pressure 76 mm[Hg] Lala Ybarra VENDING MACHINE REPAIRER-C Work Phone: 3(878)797-349842 [place] [address] 01-27-2025 15:33-0400 Systolic blood pressure 138 mm[Hg] Lala Ybarra VENDING MACHINE REPAIRER-C Work Phone: 7(150)511-011542 [place] [address] 01-24-2025 13:37-0400 Body mass index (BMI) [Ratio] 44.9 kg/m2 Lala Ybarra VENDING MACHINE REPAIRER-C Work Phone: 4(883)439-363142 [place] [address] 01-24-2025 13:37-0400 Body weight 115.21 kg Lala Ybarra VENDING MACHINE REPAIRER-C Work Phone: 4(930)846-272042 [place] [address] 01-24-2025 13:37-0400 Diastolic blood pressure 76 mm[Hg] Lala Ybarra VENDING MACHINE REPAIRER-C Work Phone: 2(879)171-990342 [place] [address] 01-24-2025 13:37-0400 Systolic blood pressure 122 mm[Hg] Lala Ybarra VENDING MACHINE REPAIRER-C Work Phone: 2(904)934-400042 [place] [address] 12-07-2024 09:08-0500 Body temperature 98.5 [degF] Lala Ybarra VENDING MACHINE REPAIRER-C Work Phone: 4(491)281-021842 [place] [address] 12-07-2024 09:08-0500 Diastolic blood pressure 80 mm[Hg] Lala Ybarra VENDING MACHINE REPAIRER-C Work Phone: 2(919)709-493142 [place] [address] 12-07-2024 09:08-0500 Heart rate 88 /min Lala Ybarra VENDING MACHINE REPAIRER-C Work Phone: 0(326)999-934842 [place] [address] 12-07-2024 09:08-0500 Respiratory rate 16 /min Lala Ybarra VENDING MACHINE REPAIRER-C Work Phone: 2(291)975-231742 [place] [address] 12-07-2024 09:08-0500 SaO2% (BldA) [Mass fraction] 99 % Lala Ybarra VENDING MACHINE REPAIRER-C Work Phone: [place] 12-07-2024 09:08-0500 Systolic blood pressure 126 mm[Hg] Lala Ybarra VENDING MACHINE REPAIRER-C Work Phone: 9(540)056-158809 [place] [address] 11-02-2024 07:03-0500 Body temperature 98.1 [degF] Lala Ybarra VENDING MACHINE REPAIRER-C Work Phone: 5(556)203-114709 [place] [address] 11-02-2024 07:03-0500 Diastolic blood pressure 72 mm[Hg] Lala Ybarra VENDING MACHINE REPAIRER-C Work Phone: 5(953)435-897909 [place] [address] 11-02-2024 07:03-0500 Heart rate 94 /min Lala Ybarra VENDING MACHINE REPAIRER-C Work Phone: 2(866)839-142409 [place] [address] 11-02-2024 07:03-0500 Respiratory rate 16 /min Lala Ybarra VENDING MACHINE REPAIRER-C Work Phone: 7(543)850-330009 [place] [address] 11-02-2024 07:03-0500 SaO2% (BldA) [Mass fraction] 98 % Lalarene Ybarra VENDING MACHINE REPAIRER-C Work Phone: 3(719)041-316309 [place] [address] 11-02-2024 07:03-0500 Systolic blood pressure 120 mm[Hg] Lala Ybarra VENDING MACHINE REPAIRER-C Work Phone: [place] 01-29-2024 12:27-0400 Diastolic blood pressure 80 mm[Hg] Dr. Francisco Stock Work Phone: [place] 01-29-2024 12:27-0400 Systolic blood pressure 118 mm[Hg] Dr. Francisco Stock Work Phone: [place] 01-29-2024 12:17-0400 Body height 157.[address] Franicsco Stock Work Phone: [place] 01-29-2024 12:17-0400 Body mass index (BMI) [Ratio] 38.2 kg/m2 Dr. Francisco Stock Work Phone: [place] 01-29-2024 12:17-0400 Body weight 94.[address] Francisco Stock Work Phone: [place] 01-29-2024 12:17-0400 Heart rate 86 /min Dr. Francisco Stock Work Phone: [place] 12-29-2023 11:48-0500 Body mass index (BMI) [Ratio] 37.5 kg/m2 Dr. Francisco Stock Work Phone: [place] 12-29-2023 11:48-0500 Body weight 92.[address] Francisco Stock Work Phone: 6(239)142-080018 [place] [address] 12-29-2023 11:48-0500 Diastolic blood pressure 80 mm[Hg] Dr. Francisco Stock Work Phone: 6(143)611-694818 [place] [address] 12-29-2023 11:48-0500 Heart rate 88 /min Dr. Francisco Stock Work Phone: 1(954)387-339618 [place] [address] 12-29-2023 11:48-0500 Systolic blood pressure 128 mm[Hg] Dr. Francisco Stock Work Phone: 9(340)513-079618 [place] [address] 12-04-2023 11:04-0500 Body height 157.[address] Panda Stock Work Phone: 1(734)012-403718 [place] [address] 12-04-2023 11:04-0500 Body mass index (BMI) [Ratio] 38.2 kg/m2 Dr. Panda Stock Work Phone: [place] 12-04-2023 11:04-0500 Body weight 94.[address] Panda Stock Work Phone: [place] 12-04-2023 11:04-0500 Diastolic blood pressure 78 mm[Hg] Dr. Panda Stock Work Phone: [place] 12-04-2023 11:04-0500 Heart rate 82 /min Dr. Panda Stock Work Phone: 5(496)192-875918 [place] [address] 12-04-2023 11:04-0500 Systolic blood pressure 121 mm[Hg] Dr. Panda Stock Work Phone: [place] 11-02-2023 13:51-0500 Body mass index (BMI) [Ratio] 39.2 kg/m2 Dr. Panda Stock Work Phone: [place] 11-02-2023 13:51-0500 Body weight 97.[address] Panda Stock Work Phone: [place] 11-02-2023 13:51-0500 Diastolic blood pressure 80 mm[Hg] Dr. Panda Stock Work Phone: [place] 11-02-2023 13:51-0500 Heart rate 90 /min Dr. Panda Stock Work Phone: [place] 11-02-2023 13:51-0500 Respiratory rate 16 /min Dr. Panda Stock Work Phone: [place] 11-02-2023 13:51-0500 SaO2% (BldA) [Mass fraction] 92 % Dr. Panda Stock Work Phone: [place] 11-02-2023 13:51-0500 Systolic blood pressure 116 mm[Hg] Dr. Panda Stock Work Phone: [place] 10-05-2023 14:01-0500 Body mass index (BMI) [Ratio] 38.8 kg/m2 Dr. Panda Stock Work Phone: [place] 10-05-2023 14:01-0500 Body weight 96.[address] Panda Stock Work Phone: [place] 10-05-2023 14:01-0500 Diastolic blood pressure 68 mm[Hg] Dr. Panda Stock Work Phone: [place] 10-05-2023 14:01-0500 Systolic blood pressure 118 mm[Hg] Dr. Panda Stock Work Phone: [place] 09-10-2023 15:28-0500 Body height 157.[address] Panda Stock Work Phone: [place] 09-10-2023 15:21-0500 Body mass index (BMI) [Ratio] 39.2 kg/m2 Dr. Panda Stock Work Phone: [place] 09-10-2023 15:21-0500 Body weight 97.[address] Panda Stock Work Phone: [place] 09-10-2023 15:21-0500 Diastolic blood pressure 78 mm[Hg] Dr. Panda Stock Work Phone: [place] 09-10-2023 15:21-0500 Systolic blood pressure 98 mm[Hg] Dr. Panda Stock Work Phone: 8(541)305-981318 [place] [address] 08-13-2023 14:25-0400 Body temperature 97.2 [degF] Dr. Panda Stock Work Phone: [place] 08-13-2023 14:25-0400 Diastolic blood pressure 82 mm[Hg] Dr. Panda Stock Work Phone: [place] 08-13-2023 14:25-0400 Heart rate 102 /min Dr. Panda Stock Work Phone: [place] 08-13-2023 14:25-0400 Respiratory rate 17 /min Dr. Panda Stock Work Phone: [place] 08-13-2023 14:25-0400 SaO2% (BldA) [Mass fraction] 95 % Dr. Panda Stock Work Phone: [place] 08-13-2023 14:25-0400 Systolic blood pressure 127 mm[Hg] Dr. Panda Stock Work Phone: [place] 08-13-2023 13:44-0400 Body mass index (BMI) [Ratio] 39.3 kg/m2 Dr. Panda Stock Work Phone: [place] 08-13-2023 13:44-0400 Body weight 97.[address] Panda Stock Work Phone: [place] 08-13-2023 13:44-0400 Diastolic blood pressure 76 mm[Hg] Dr. Panda Stock Work Phone: [place] 08-13-2023 13:44-0400 Heart rate 90 /min Dr. Panda Stock Work Phone: [place] 08-13-2023 13:44-0400 Systolic blood pressure 123 mm[Hg] Dr. Panda Stock Work Phone: [place] 07-17-2023 13:49-0400 Body mass index (BMI) [Ratio] 39.9 kg/m2 Dr. Panda Stock Work Phone: [place] 07-17-2023 13:49-0400 Body weight 98.[address] Panda Stock Work Phone: [place] 07-17-2023 13:49-0400 Diastolic blood pressure 70 mm[Hg] Dr. Panda Stock Work Phone: [place] 07-17-2023 13:49-0400 Heart rate 94 /min Dr. Panda Stock Work Phone: [place] 07-17-2023 13:49-0400 Systolic blood pressure 108 mm[Hg] Dr. Panda Stock Work Phone: [place] 06-19-2023 10:52-0400 Body mass index (BMI) [Ratio] 40.1 kg/m2 Dr. Panda Stock Work Phone: [place] 06-19-2023 10:52-0400 Body weight 99.[address] Panda Stock Work Phone: [place] 06-19-2023 10:52-0400 Diastolic blood pressure 82 mm[Hg] Dr. Panda Stock Work Phone: [place] 06-19-2023 10:52-0400 Systolic blood pressure 122 mm[Hg] Dr. Panda Stock Work Phone: [place] 01-26-2023 16:35-0400 Body height 157.[address] Panda Stock Work Phone: 9(435)206-342399 [address] 01-26-2023 16:32-0400 Body mass index (BMI) [Ratio] 43 kg/m2 Dr. Panda Stock Work Phone: 7(101)192-124518 [place] [address] 01-26-2023 16:32-0400 Body weight 106.[address] Panda Stock Work Phone: 5(647)445-538799 [address] 01-26-2023 16:32-0400 Diastolic blood pressure 82 mm[Hg] Dr. Panda Stock Work Phone: 4(144)444-811818 [place] [address] 01-26-2023 16:32-0400 Systolic blood pressure 133 mm[Hg] Dr. Panda Stock Work Phone: 7(850)975-821018 [place] [address] 12-22-2022 13:27-0500 Body height 157.[address] Panda Stock Work Phone: 1(870)332-823668 [place] [address] 12-22-2022 13:21-0500 Body mass index (BMI) [Ratio] 42.9 kg/m2 Dr. Panda Stock Work Phone: [place] 12-22-2022 13:21-0500 Body weight 106.[address] Panda Stock Work Phone: 6(497)280-063118 [place] [address] 12-22-2022 13:21-0500 Diastolic blood pressure 82 mm[Hg] Dr. Panda Stock Work Phone: 3(943)558-241418 [place] [address] 12-22-2022 13:21-0500 Systolic blood pressure 122 mm[Hg] Dr. Panda Stock Work Phone: 2(170)804-635699 [address] 09-30-2022 08:02-0500 Diastolic blood pressure 76 mm[Hg] Dr. Panda Stock Work Phone: [place] 09-30-2022 08:02-0500 Heart rate 71 /min Dr. Panda Stock Work Phone: [place] 09-30-2022 08:02-0500 Respiratory rate 15 /min Dr. Panda Stock Work Phone: [place] 09-30-2022 08:02-0500 SaO2% (BldA) [Mass fraction] 98 % Dr. Panda Stock Work Phone: [place] 09-30-2022 08:02-0500 Systolic blood pressure 128 mm[Hg] Dr. Panda Stock Work Phone: [place] 09-30-2022 06:29-0500 Body height 157.[address] Panda Stock Work Phone: [place] Work Phone: 09-30-2022 06:29-0500 Body mass index (BMI) [Ratio] 41 kg/m2 Dr. Panda Stock Work Phone: [place] 09-30-2022 06:29-0500 Body temperature 98.8 [degF] Dr. Panda Stock Work Phone: [place] 09-30-2022 06:29-0500 Body weight 101.[address] Panda Stock Work Phone: [place] 09-10-2022 09:10-0500 Body mass index (BMI) [Ratio] 39.9 kg/m2 Dr. Panda Stock Work Phone: [place] 09-10-2022 09:10-0500 Body weight 99.[address] Panda Stock Work Phone: [place] 09-10-2022 09:10-0500 Diastolic blood pressure 78 mm[Hg] Dr. Panda Stock Work Phone: [place] 09-10-2022 09:10-0500 Systolic blood pressure 120 mm[Hg] Dr. Panda Stock Work Phone: [place] 08-25-2022 15:18-0400 Body height 157.[address] Panda Stock Work Phone: [place] Work Phone: 08-25-2022 15:14-0400 Body mass index (BMI) [Ratio] 40.3 kg/m2 Dr. Panda Stock Work Phone: [place] Work Phone: 08-25-2022 15:14-0400 Body weight 99.[address] Panda Stock Work Phone: [place] Work Phone: 08-25-2022 15:14-0400 Diastolic blood pressure 82 mm[Hg] Dr. Panda Stock Work Phone: [place] Work Phone: 08-25-2022 15:14-0400 Systolic blood pressure 128 mm[Hg] Dr. Panda Stock Work Phone: [place] Work Phone: 08-05-2022 13:51-0400 Body height 157.[address] Panda Stock Work Phone: [place] Work Phone: 08-05-2022 13:51-0400 Body mass index (BMI) [Ratio] 40.5 kg/m2 Dr. Panda Stock Work Phone: [place] Work Phone: 08-05-2022 13:51-0400 Body weight 100.[address] Panda Stock Work Phone: [place] Work Phone: 08-05-2022 13:51-0400 Diastolic blood pressure 79 mm[Hg] Dr. Panda Stock Work Phone: [place] Work Phone: 08-05-2022 13:51-0400 Heart rate 101 /min Dr. Panda Stock Work Phone: [place] Work Phone: 08-05-2022 13:51-0400 Systolic blood pressure 122 mm[Hg] Dr. Panda Stock Work Phone: [place] Work Phone: 07-08-2022 13:46-0400 Body height 157.[address] Panda Stock Work Phone: [place] Work Phone: 07-08-2022 13:46-0400 Body mass index (BMI) [Ratio] 41.5 kg/m2 Dr. Panda Stock Work Phone: [place] Work Phone: 07-08-2022 13:46-0400 Body weight 103.[address] Panda Stock Work Phone: [place] Work Phone: 07-08-2022 13:46-0400 Diastolic blood pressure 77 mm[Hg] Dr. Panda Stock Work Phone: [place] Work Phone: 07-08-2022 13:46-0400 Systolic blood pressure 116 mm[Hg] Dr. Panda Stock Work Phone: [place] Work Phone: 06-09-2022 13:54-0400 Body mass index (BMI) [Ratio] 43.7 kg/m2 Dr. Panda Stock Work Phone: [place] Work Phone: 06-09-2022 13:54-0400 Body weight 108.[address] Panda Stock Work Phone: [place] Work Phone: 06-09-2022 13:54-0400 Diastolic blood pressure 72 mm[Hg] Dr. Panda Stock Work Phone: [place] Work Phone: 06-09-2022 13:54-0400 Systolic blood pressure 120 mm[Hg] Dr. Panda Stock Work Phone: [place] Work Phone: 01-24-2022 08:33-0400 Body height 157.[address] Panda Stock Work Phone: [place] Work Phone: 01-24-2022 08:33-0400 Body mass index (BMI) [Ratio] 41.8 kg/m2 Dr. Panda Stock Work Phone: [place] Work Phone: 01-24-2022 08:33-0400 Body weight 103.[address] Panda Stock Work Phone: [place] Work Phone: 01-24-2022 08:33-0400 Diastolic blood pressure 76 mm[Hg] Dr. Panda Stock Work Phone: [place] Work Phone: 01-24-2022 08:33-0400 Heart rate 77 /min Dr. Panda Stock Work Phone: [place] Work Phone: 01-24-2022 08:33-0400 Respiratory rate 16 /min Dr. Panda Stock Work Phone: [place] Work Phone: 01-24-2022 08:33-0400 Systolic blood pressure 120 mm[Hg] Dr. Panda Stock Work Phone: [place] Work Phone: 01-24-2022 08:33-0400 Body height 157.[address] Panda Stock Work Phone: [place] Work Phone: 01-24-2022 08:33-0400 Body mass index (BMI) [Ratio] 41.8 kg/m2 Dr. Panda Stock Work Phone: [place] Work Phone: 01-24-2022 08:33-0400 Body weight 103.[address] Panda Stock Work Phone: [place] Work Phone: 01-24-2022 08:33-0400 Diastolic blood pressure 76 mm[Hg] Dr. Panda Stock Work Phone: [place] Work Phone: 01-24-2022 08:33-0400 Heart rate 77 /min Dr. Panda Stock Work Phone: [place] Work Phone: 01-24-2022 08:33-0400 Respiratory rate 16 /min Dr. Panda Stock Work Phone: [place] Work Phone: 01-24-2022 08:33-0400 Systolic blood pressure 120 mm[Hg] Dr. Panda Stock Work Phone: [place] Work Phone: 11-21-2021 10:17-0500 Body temperature 98.4 [degF] Dr. Panda Stock Work Phone: [place] Work Phone: 11-21-2021 10:17-0500 Diastolic blood pressure 82 mm[Hg] Dr. Panda Stock Work Phone: [place] Work Phone: 11-21-2021 10:17-0500 Heart rate 60 /min Dr. Panda Stock Work Phone: [place] Work Phone: 11-21-2021 10:17-0500 Respiratory rate 14 /min Dr. Panda Stock Work Phone: [place] Work Phone: 11-21-2021 10:17-0500 SaO2% (BldA) [Mass fraction] 97 % Dr. Panda Stock Work Phone: [place] Work Phone: 11-21-2021 10:17-0500 Systolic blood pressure 124 mm[Hg] Dr. Panda Stock Work Phone: [place] Work Phone: 11-21-2021 06:18-0500 Body mass index (BMI) [Ratio] 40.7 kg/m2 Dr. Panda Stock Work Phone: [place] Work Phone: 11-21-2021 06:18-0500 Body weight 101.[address] Panda Stock Work Phone: [place] Work Phone: 11-16-2021 11:03-0500 Body temperature 98.1 [degF] Dr. Panda Stock Work Phone: [place] Work Phone: 11-16-2021 11:03-0500 Diastolic blood pressure 67 mm[Hg] Dr. Panda Stock Work Phone: [place] Work Phone: 11-16-2021 11:03-0500 Heart rate 67 /min Dr. Panda Stock Work Phone: [place] Work Phone: 11-16-2021 11:03-0500 Respiratory rate 16 /min Dr. Panda Stock Work Phone: [place] Work Phone: 11-16-2021 11:03-0500 SaO2% (BldA) [Mass fraction] 100 % Dr. Panda Stock Work Phone: [place] Work Phone: 11-16-2021 11:03-0500 Systolic blood pressure 115 mm[Hg] Dr. Panda Stock Work Phone: [place] Work Phone: 11-16-2021 09:19-0500 Body mass index (BMI) [Ratio] 35.6 kg/m2 Dr. Panda Stock Work Phone: [place] Work Phone: 11-16-2021 09:19-0500 Body weight 88.[address] Panda Stock Work Phone: [place] Work Phone: Encounters Encounter Date Encounter Type Care Provider Facility Start: 08-30-2025 End: 08-30-2025 Emergency department patient visit Zebulun Beam VSC Facility:[facility] Start: 08-18-2025 End: 08-18-2025 ambulatory Zebulu Beam VSC Facility:[facility] Start: 08-16-2025 End: 08-16-2025 ambulatory Zebulun Beam VSC Facility:[facility] Start: 07-12-2025 ambulatory Health Risk Assessment Facility:[facility] Start: 05-30-2025 Non-patient / Non-visit Dr. Rob Olmedo MD -[facility] Start: 05-30-2025 End: 05-30-2025 ambulatory Lala Ybarra VENDING MACHINE REPAIRER-C Work Phone: -[facility] Start: 05-30-2025 End: 05-30-2025 Patient encounter procedure Jannette PAINTING -[facility] Work Phone: Start: 05-30-2025 End: 05-30-2025 ambulatory Lala Ybarra VSC Facility:[facility] Start: 05-12-2025 End: 05-12-2025 Patient encounter procedure Jannette PAINTING -[facility] Work Phone: Start: 05-12-2025 End: 05-12-2025 ambulatory Lala Ybarra VENDING MACHINE REPAIRER-C Work Phone: -[facility] Start: 04-13-2025 End: 04-13-[address] Cora Saeed [place] [facility] Work Phone: Start: 04-13-2025 End: 04-13-2025 ambulatory Lala Ybarra VENDING MACHINE REPAIRER-C Work Phone: [facility] Work Phone: Start: 04-05-2025 End: 04-05-2025 ambulatory Lala Ybarra VENDING MACHINE REPAIRER-C Work Phone: [place] Work Phone: Start: 04-05-2025 End: 04-05-2025 Patient encounter procedure [facility] Lala Ybarra VENDING MACHINE REPAIRER-C -Laboratory [facility] Arechiga Start: 04-05-2025 End: 04-05-2025 ambulatory Lala Ybarra [facility] Facility:[place] Start: 03-27-2025 End: 03-27-2025 Telephone encounter Scottie Chance MD Work Phone: OB/Gynecology Start: 03-22-2025 End: 05-22-2025 Follow-up encounter Johanna Thapa MD Work Phone: OB/Gynecology Start: 03-15-2025 End: 03-15-2025 Patient encounter procedure Scottie Chance MD Work Phone: OB/Gynecology Comment on above: Pap smear of cervix with ASCUS, cannot exclude HGSIL (Primary Dx) Start: 03-15-2025 End: 03-15-2025 ambulatory SCOTTIE CHANCE Facility:[facility] Start: 03-08-2025 End: 03-08-2025 ambulatory SCOTTIE CHANCE Facility:[facility] Start: 03-08-2025 End: 03-08-2025 Patient encounter procedure Scottie Chance MD Work Phone: OB/Gynecology Comment on above: Pap smear of cervix with ASCUS, cannot exclude HGSIL (Primary Dx) Start: 03-03-2025 ambulatory Trista Holbrook cility:[facility] Start: 01-27-2025 End: 01-27-2025 Patient encounter procedure Nayely Gregg CNM -[facility] Work Phone: Start: 01-27-2025 End: 01-27-2025 ambulatory Lala Tate VENDING MACHINE REPAIRER-C Work Phone: [place] Work Phone: Start: 01-27-2025 End: 01-27-2025 ambulatory Lala [facility] Facility:[place] Start: 01-24-2025 End: 01-24-[address] Cora Saeed [place] [facility] Work Phone: Start: 01-24-2025 End: 01-24-2025 ambulatory Cora Saeed Facility:[facility] Start: 12-29-2024 End: 12-29-2024 Patient encounter procedure Demario Drake VENDING MACHINE REPAIRER-C -[facility] Work Phone: Start: 12-29-2024 End: 12-29-2024 ambulatory Demario Drake Facility:[facility] Start: 11-02-2024 End: 11-02-2024 Patient encounter procedure Feliciano Echavarria PA -[facility] Work Phone: Start: 11-02-2024 End: 11-02-2024 ambulatory Lalayina Ybarra [facility] Facility:[facility] Start: 10-06-2024 End: 10-06-2024 Patient encounter procedure Vivienne East DO -Laboratory, [facility] Start: 10-06-2024 End: 10-06-2024 ambulatory Vivienne East VS Facility:[place] Start: 09-10-2024 End: 09-10-2024 ambulatory Vivienne East [facility] Facility:[place] Start: 02-03-2024 End: 02-03-[address] Francisco Stock Work Phone: [place] Work Phone: Start: 02-03-2024 End: 02-03-[address] Francisco Stock Work Phone: [place] Work Phone: Start: 01-29-2024 End: 01-29-[address] Francisco Stock Work Phone: [facility] Work Phone: Start: 01-05-2024 End: 01-05-[address] Francisco Stock Work Phone: [facility] Work Phone: Start: 12-30-2023 End: 12-30-[address] Francisco Stock Work Phone: [facility] Work Phone: Start: 12-29-2023 End: 12-29-[address] Francisco Stock Work Phone: [facility] Work Phone: Start: 12-24-2023 Non-patient / Non-visit Dr. Francisco Stock Work Phone: [facility] Work Phone: Start: 12-24-2023 End: 12-24-[address] Panda Stock Work Phone: [facility] Work Phone: Start: 12-23-2023 End: 12-23-[address] Panda Stock Work Phone: [place] Work Phone: Start: 12-23-2023 End: 12-23-[address] Panda Stock Work Phone: [place], [facility] Work Phone: Start: 12-17-2023 End: 12-17-[address] Panda Stock Work Phone: [facility] Work Phone: Start: 12-04-2023 End: 12-04-[address] Panda Stock Work Phone: [facility] Work Phone: Start: 11-02-2023 End: 11-02-[address] Panda Stock Work Phone: [facility] Work Phone: Start: 10-05-2023 End: 10-05-[address] Panda Stock Work Phone: [facility] Work Phone: Start: 09-29-2023 End: 09-29-[address] Panda Stock Work Phone: [facility] Work Phone: Start: 09-10-2023 End: 09-10-[address] Panda Stock Work Phone: [place] Work Phone: Start: 09-10-2023 End: 09-10-[address] Panda Stock Work Phone: [facility] Work Phone: Start: 08-13-2023 End: 08-13-[address] Panda Stock Work Phone: [facility] Work Phone: Start: 07-17-2023 End: 07-17-[address] Panda Stock Work Phone: [facility] Work Phone: Start: 06-22-2023 End: 06-22-[address] Panda Stock Work Phone: [facility] Work Phone: Start: 06-19-2023 End: 06-19-[address] Panda Stock Work Phone: [facility] Work Phone: Start: 06-18-[address] Lawson Stock Work Phone: [facility] Start: 01-29-2023 End: 01-29-[address] Panda Stock Work Phone: [place] Work Phone: Start: 01-29-2023 End: 01-29-[address] Panda Stock Work Phone: [facility] Start: 01-27-2023 End: 01-27-[address] Panda Stock Work Phone: [place] Work Phone: Start: 01-27-2023 End: 01-27-[address] Panda Stock Work Phone: [place] Start: 01-26-2023 End: 01-26-[address] Panda Stock Work Phone: [facility] Start: 12-25-2022 End: 12-25-[address] Panda Stock Work Phone: [place] Work Phone: Start: 12-25-2022 End: 12-25-[address] Panda Stock Work Phone: [facility], [facility] Start: 12-22-2022 End: 12-22-[address] Panda Stock Work Phone: [facility] Start: 12-18-2022 End: 12-18-[address] Panda Stock Work Phone: [facility] Start: 11-18-2022 Non-patient / Non-visit Dr. Panda Stock Work Phone: [place] Start: 11-11-2022 End: 11-11-[address] Panda Stock Work Phone: [facility] Start: 09-30-2022 End: 09-30-2022 Emergency department patient visit Dr. Panda Stock Work Phone: [place] Start: 09-23-2022 End: 09-23-[address] Panda Stock Work Phone: [place] Work Phone: Start: 09-23-2022 End: 09-23-[address] Panda Stock Work Phone: [place] Start: 09-10-2022 End: 09-10-[address] Panda Stock Work Phone: [facility] Start: 08-28-2022 End: 08-28-[address] Panda Stock Work Phone: [facility] Start: 08-25-2022 End: 08-25-[address] Panda Stock Work Phone: [facility] Start: 08-25-2022 End: 08-25-[address] Panda Stock Work Phone: [place] Work Phone: Start: 08-25-2022 End: 08-25-[address] Panda Stock Work Phone: [place] Start: 08-19-2022 End: 08-19-[address] Panda Stock Work Phone: [place] Work Phone: Start: 08-19-2022 End: 08-19-[address] Panda Stock Work Phone: [place], [facility] Start: 08-07-2022 End: 08-07-[address] Panda Stock Work Phone: [place] Start: 08-05-2022 End: 08-05-[address] Panda Stock Work Phone: [facility] Start: 07-30-2022 End: 07-30-[address] Panda Stock Work Phone: [place] Work Phone: Start: 07-30-2022 End: 07-30-[address] Panda Stock Work Phone: [place] Start: 07-08-2022 End: 07-08-[address] Panda Stock Work Phone: [facility] Start: 07-08-2022 End: 07-08-[address] Panda Stock Work Phone: [place] Work Phone: Start: 07-08-2022 End: 07-08-[address] Panda Stock Work Phone: [place] Start: 07-08-[address] Lawson Stock Work Phone: [facility] Start: 06-09-2022 End: 06-09-[address] Panda Stock Work Phone: [facility] Start: 05-13-[address] Lawson Stock Work Phone: [facility] Start: 04-17-2022 End: 04-17-[address] Panda Stock Work Phone: [facility] Start: 04-16-2022 End: 04-16-[address] Panda Stock Work Phone: [facility] Start: 04-01-2022 End: 04-01-[address] Panda Stock Work Phone: [facility] Start: 03-06-2022 End: 03-06-[address] Panda Stock Work Phone: [facility] Start: 02-27-[address] Lawson Stock Work Phone: [facility] Start: 01-24-2022 End: 01-24-[address] Panda Stock Work Phone: [facility] Start: 01-20-2022 End: 01-20-[address] Panda Stock Work Phone: [facility] Start: 12-12-2021 End: 12-12-[address] Panda Stock Work Phone: [facility] Start: 12-02-2021 End: 12-02-[address] Panda Stock Work Phone: [place] Start: 11-25-2021 End: 11-25-[address] Panda Stock Work Phone: [place] Start: 11-21-2021 End: 11-21-2021 Emergency department patient visit Dr. Panda Stock Work Phone: [place] Start: 11-16-2021 End: 11-16-[address] Panda Stock Work Phone: [place] Start: 11-12-2021 End: 11-12-[address] Panda Stock Work Phone: [facility] Start: 11-11-2021 End: 11-11-[address] Panda Stock Work Phone: [facility] Procedures Date Procedure Procedure Detail Performing Clinician Start: 04-05-2025 Methadone measurement, urine Lala Ybarra NP-C Work Phone: Start: 03-15-2025 Level iv surg pathol ogy gross&microscopic exam Scottie Chance MD Work Phone: Start: 03-15-2025 UA DIP,URINE HCG (POC) Scottie Chance MD Work Phone: Start: 01-27-2025 Liquid based cervica l cytology screening Lala Ybarra VENDING MACHINE REPAIRER-C Work Phone: Comment on above: EPITHELIAL CELL ABNO RMALITY.ATYPICAL SQUAMOUS CELLS, CANNOT EXCLUDE HIGH-GRADE SQUAMOUSINTRAEPITHELIAL LESION (ASC-H). This liquid based Th inPrep(R) pap test was screened withthe use of an image guided system. The HPV DNA reflex c riteria were not met with this specimenresult therefore, no HPV testing was performed.Performed at: [address] [id number] Director: Cortney Vargas MD, Phone: [phone] Start: 12-23-2023 X-ray of lumbosacral spine Dr. [...] DTaP,Tdap,Td Vaccine (7 - Td or Tdap) [facility] Start: 06-26-2025 Influenza vaccination Influenza Vaccine (#1) [facility] Start: 03-15-2025 End: 03-15-2025 Patient encounter procedure 03/15/2025 9:30 AM EDT Office Visit OB/Gynecology [address] [place] [address] Scottie Chance MD [address] [place] [address] Pap smear of cervix with ASCUS, cannot exclude HGSIL [R87.611] OB/Gynecology Comment on above: Pap smear of cervix with ASCUS, cannot e xclude HGSIL [R87.611] Start: 01-27-2025 Liquid based cervical cytology screening [place] Start: 06-26-2024 Covid-19 Vaccine () Covid-19 Vaccine () [facility] Start: 07-30-2022 Procedure [place] Work Phone: Start: 02-21-2017 Screening for malignant neoplasm of cervix Cervical Cancer Screening [facility] Start: 02-21-2014 Anxiety Screening Anxiety Screening [facility] Start: 02-21-2014 Depression Screening Depression Screening [facility] Start: 02-21-2014 Hepatitis C screening Hepatitis C Screening [facility] Start: 02-21-2014 HIV screening HIV Screening [facility] COLPOSCOPY COLPOSCOPY Procedures Routine Pap smear of cervix with ASCUS, cannot exclude HGSIL Ordered: 03/08/2025 [facility] Work Phone: Comment on above: Ordered: 03/08/2025 COLPOSCOPY COLPOSCOPY Procedures Routine Pap smear of cervix with ASCUS, cannot exclude HGSIL Ordered: 03/15/2025 [facility] Work Phone: Comment on above: Ordered: 03/15/2025 Dehydroepiandrostero ne sulfate (DHEA-S) [Mass/volume] in Serum or Plasma [place] Work Phone: Path report.final Dx Spec [facility] Patient Education [facility] Work Phone: Patient referral [facility] Work Phone: Procedure [facility] Work Phone: Prolactin [Mass/volu me] in Serum or Plasma [place] Work Phone: Testosterone Free [M ass/volume] in Serum or Plasma [place] Work Phone: [facility] Immunizations Immunization Date Immunization Notes Care Provider [facility] 09-08-2024 influenza, seasonal, injectable, preservative free Lala Ybarra VENDING MACHINE REPAIRER-C Work Phone: [place] 09-08-2024 influenza virus vaccine, unspecified formulation Johanna Thapa MD Work Phone: [facility] 08-03-2023 influenza, injectabl e, quadrivalent, preservative free Dr. Panda Stock Work Phone: [place] 07-25-2022 influenza, injectabl e, quadrivalent, preservative free Dr. Panda Stock Work Phone: [place] 07-25-2022 influenza, seasonal, injectable Dr. Panda Stock Work Phone: [place] 07-31-2021 influenza, injectabl e, quadrivalent, preservative free Dr. Panda Stock Work Phone: [place] 07-31-2021 influenza, seasonal, injectable Dr. Panda Stock Work Phone: [place] 07-24-2020 influenza, injectabl e, quadrivalent, preservative free Dr. Panda Stock Work Phone: [place] 07-24-2020 influenza, seasonal, injectable Dr. Panda Stock Work Phone: [place] 09-07-2019 influenza, injectabl e, quadrivalent, preservative free Dr. Panda Stock Work Phone: [place] 09-07-2019 influenza, seasonal, injectable Dr. Panda Stock Work Phone: [place] 08-25-2018 influenza, injectabl e, quadrivalent, preservative free Dr. Panda Stock Work Phone: [place] 08-25-2018 influenza, seasonal, injectable Dr. Panda Stock Work Phone: [place] 10-27-2017 influenza, injectabl e, quadrivalent, preservative free Dr. Panda Stock Work Phone: [place] 10-27-2017 influenza, seasonal, injectable Dr. Panda Stock Work Phone: [place] 04-27-2016 tetanus toxoid, reduced diphtheria toxoid, and acellular pertussis vaccine, adsorbed Dr. Panda Stock Work Phone: [place] Payers Date Payer Category Payer Private Health Insurance [facility] [id number] 2024 [facility] BLUE CARD PPO OOS [id number] 2024 Unknown [id number] 2024 Self-pay [id number] 2024 Unknown [id number] 2015 Unknown [id number] Unknown [id number] Unknown [id number] Unknown [id number] 462 Unknown [id number]. 462 Unknown [id number]. 462 Unknown [id number]. 462 Unknown [id number] .[id number]. 462 Unknown [id number] .[id number]. 462 Unknown [id number]. 462 Unknown [id number] .[id number]. 462 Unknown [id number] 2.840.1.341745.3.579.2. 462 Unknown [id number] 2.16.840.1.406639.3.579.2. 462 Unknown [id number] 2.16.840.1.044580.3.579.2. 462 Unknown [id number] 2.16.840.1.842017.3.579.2. 462 Unknown [id number] 2.16.840.1.734373.3.579.2. 462 Unknown [id number] 2.16.840.1.962110.3.579.2. 462 Unknown [id number] 2.16.840.1.850413.3.579.2. 462 Unknown [id number] [id number]. 462 Unknown [id number] 2.16.840.1.804654.3.579.2. 462 Unknown [id number] [id number]. 462 Unknown [id number]. 462 Social History Date Type Detail Facility [facility] Work Phone: Start: 01-24-2022 End: 01-29-2024 Tobacco smoking status FLIS Unknown if ever smoked [place] Start: 08-31-2020 None [facility] Start: 08-31-2020 With Family [facility] Start: 11-12-2021 Non-smoker [facility] Start: 1995 Sex Assigned At Female W [facility] Start: 12-07-2024 End: 03-08-2025 Tobacco smoking status NHIS Never smoked tobacco (finding) [place] Start: 02-01-2025 Sex Female (finding) [facility] Start: 03-08-2025 Tobacco use and exposure Smokeless tobacco non-user [facility] Start: 03-08-2025 Alcoholic beverage intake Current drinker of alcohol (finding) [facility] Start: 03-08-2025 History of Social function [facility] Start: 03-08-2025 Tobacco use panel [facility] National Score (1-100), lower number is lower risk 54 [facility] Start: 03-08-2025 Alcohol Comment social [facility] Start: 1995 Sex assigned at Not on file [facility] NEGATED: Highlighted row [place] Goals Date Patient Goal Desired Activity /State Mental Status Date Assessment Result Facility 09-30-2022 Cognitive function Level Of Cons ciousness Awake;Alert;Appropriate;Follow s Commands [place] Work Phone: 11-16-2021 Cognitive function Voice/Name;To uch/Shaking;Light Pain;Deep Pain [place] Work Phone: Clinical Notes 11-02-2024 to 04-13-2025 [...] valve stenosis chronic May 12, 2025 2:26pm [place] Work Phone: [phone] 988-201905-21-2025 Instructions* Patient Instructions* Lata Coreas LPN - [...] contact your doctor's office. [facility] NoteHNO ID: [id number] Author: SCOTTIE CHANCE MD Service: ? Author [...] / SAFETY CHECKLIST Procedure to be Performed: Logan bx and ECC Sign In: A Moment [...] LEEP as lesion is small. Scottie Chance, [facility]05-21-2025 History of Present illness Narrative* [...] / SAFETY CHECKLIST Procedure to be Performed: Logan bx and ECC Sign In: A Moment [...] small. Scottie Chance MD [facility] Note* Addendum Note - Scottie Chance MD - 03/08/2025 9:59 AM EDTAddended by: SCOTTIE CHANCE on: 03/08/2025 09:59 AM Modules accepted: Orders [facility]05-14-2025 Miscellaneous Notes* Addendum Note - Scottie Chance MD - 03/08/2025 9:59 AM EDTAddended by: SCOTTIE CHANCE on: 03/08/2025 09:59 AM Modules accepted: Orders [facility]25 NoteHNO ID: [id number] Author: SCOTTIE CHANCE MD Service: ? Author Type: Physician Type: Progress Notes Filed: 03/08/2025 09:55 Note Text: Katie Pulliam is a 30 year old female who presents for problem visit to discuss abnormal pap, miscairrage after colposcopy, abnormal HSG, another miscarriage after pap. Rec made for advanced reproductive evaluation.. 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 Extensive review of records ftft> 60 min Scottie Chance [facility]05-14-2025 History of Present illness Narrative* Scottie Chance MD - 03/08/2025 8:43 AM EDT Katie Pulliam is a 30 year old female who presents for problem visit to discuss abnormal pap, miscairrage after colposcopy, abnormal HSG, another miscarriage after pap. Rec made for advance\d reproductive evaluation.. 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 Extensive review of records ftft> 60 min Scottie Chance MD [facility] Evaluation note* Diagnosis Onset Date Resolution [...] valve stenosis chronic May 12, 2025 2:26pm [facility] Work Phone: 1(930) 119-565603-06-2025 Evaluation note* Diagnosis Onset Date Resolution Status [...] severe dysplasia acute January 27, 2025 3:29pm [place] Work Phone: 1(657) 342-475803-06-2025 Evaluation note* Diagnosis Onset Date Resolution Status [...] of thoracic region acute April 13 10:52am [facility] Work Phone: 1(309) 251-454801-08-2025 Evaluation note* Diagnosis Onset Date Resolution Status [...] severe dysplasia acute January 27, 2025 3:29pm [place] Work Phone: Chief complaint+Reason for visit Narrative* [...] of heart disease Congenital pulmonic valve stenosis [place] Work Phone: Evaluation note* Diagnosis Onset Date [...] disease acute Congenital pulmonic valve stenosis chronic [place] Work Phone: evaluation note* Diagnosis Onset Date Resolution Status Segmental [...] and somatic dysfunction of thoracic region acute [place] Work Phone: Evaluation note* Diagnosis Onset Date [...] for routine gynecological examination noneactive Obesity acute [place] Work Phone: Evaluation note* Diagnosis Onset Date Resolution Status BMI 40.0-44.9, adult acute Encounter for routine gynecological examination noneactive Obesity acute Obesity acute Segmental and somatic dysfunction of cervical region resolved Segmental and somatic dysfunction of lumbar region resolved Segmental and somatic dysfunction of pelvic region resolved Segmental and somatic dysfunction of thoracic region resolved [place] Work Phone: Evaluation note* Diagnosis Onset Date Resolution Status BMI 40.0-44.9, adult acute Encounter for routine gynecological examination noneactive Obesity acute Obesity acute Segmental and somatic dysfunction of cervical region resolved Segmental and somatic dysfunction of lumbar region resolved Segmental and somatic dysfunction of pelvic region resolved Segmental and somatic dysfunction of thoracic region resolved Postcoital bleeding acute Cervicitis noneactive [place] Work Phone: Evaluation note* Diagnosis Onset Date [...] resolved Fertility testing acute Postcoital bleeding acute [place] Work Phone: Evaluation note* Diagnosis Onset Date [...] with irregular cycle acute Pelvic pain acute [place] Work Phone: Evaluation note* Diagnosis Onset Date [...] cycle acute Pelvic pain acute Thyromegaly acute [place] Work Phone: Evaluation note* Diagnosis Onset Date [...] cycle acute Obesity acute Pelvic pain acute [place] Work Phone: Evaluation note* Diagnosis Onset Date [...] and somatic dysfunction of thoracic region acute [place] Work Phone: Evaluation note* Diagnosis Onset Date [...] 38.0-38.9,adult acute Calf pain acute Obesity acute [place] Work Phone: Evaluation note* Diagnosis Pap smear of cervix with ASCUS, cannot exclude HGSIL- Primary Papanicolaou smear of cervix with atypical squamous cells cannot exclude high grade squamous intraepithelial lesion (ASC-H) [facility] Pap smear of cervix with ASCUS, cannot exclude HGSIL- Primary Papanicolaou smear of cervix with atypical squamous cells cannot exclude high grade squamous intraepithelial lesion (ASC-H) [facility] Diagnosis Female infertility- Primary Female infertility of unspecified origin [facility] Pap smear of cervix with ASCUS, cannot exclude HGSIL- Primary Papanicolaou smear of cervix with atypical squamous cells cannot exclude high grade squamous intraepithelial lesion (ASC-H) documented in this encounter [facility] for referral (narrative)No reason for [facility] Work Phone: Family History No Family [...] Will No November 21 8:42am Power of Chisel Trimmer No November 21, 2021 8:42am Advance Directive Response Recorded Date/ Time Living Will No September 30 6:29am Power of Chisel Trimmer No September 30, 2022 6:29am Advance Directive Response Recorded Date/ Time Living Will No September 30 7:29am Power of Chisel Trimmer No September 30, 2022 7:29am Advance Directive Response Recorded Date/ Time Living Will No March 16, 2023 1 0:26am Power of Chisel Trimmer No March 16, 2023 10:26am Advance Directive Response Recorded Date/ Time Living Will No March 16, 2023 1 1:26am Power of Chisel Trimmer No March 16, 2023 11:26am Advance Directive Response Recorded Date/ Time Living Will No June 16 10:04am Do you have a Healthcare Power of Chisel Trimmer? 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 (GENERAL HELPER) weight / bp check INT'S & BOX weight / bp check LBP/UPPER BACK ABN MENSIS Reason for Visit BMI 40.0-44.9, adult Encounter for routine gynecological examination Obesity Obesity Segmental and somatic dysfunction of cervical region Segmental and somatic dysfunction of lumbar region Segmental and somatic dysfunction of pelvic region Segmental and somatic dysfunction of thoracic region Chief Complaint 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 fu E ORDERS General Illness Reason for [...] Postcoital bleeding Chief Complaint 2WK fu and Weightryan g. fu E ORDERS General Illness INFERTILITY [...] THROAT, COUGH, HEADACHE October 7:02am 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/ [employer] Funding November 02, 2024 7: 12am EMPLOYEE [employer] Funding December 29, 2024 12:3 4pm SORE THROAT, [...] 2025 3:29pm Chief Complaint Admit Date EMPLOYEE [employer] Funding December 29, 2024 12:3 4pm SORE THROAT, [...] Dr. Panda Stock MD Primary Care Provider, Nila pickett Provider Active Cari Holman VENDING MACHINE REPAIRER, VENDING MACHINE REPAIRER-C Attending Provider Active Team Status: Active Member [...] Primary Care Provider Activ e Cari Holman VENDING MACHINE REPAIRER, VENDING MACHINE REPAIRER-C Attending Provider, Referring Provider Active Team Status: [...] Primary Care Provider Activ e Cari Holman VENDING MACHINE REPAIRER, VENDING MACHINE REPAIRER-C Attending Provider Active Team Status: Inactive Member [...] Active Member Role Status Dates Lala MARTE, VENDING MACHINE REPAIRER-C Primary Care Provider Activ e Team Status: Inactive Member Role Status Dates Lala MARTE, VENDING MACHINE REPAIRER-C Primary Care Provider Activ e Start: October 06, 2024 End: October 06, 2024 Vivienne MARTE, DO Attending Provider Active Start: October 06, 2024 End: October 06, 2024 Vivienne MARTE, DO Referring Provider Active Start: October 06, 2024 End: October 06, 2024 Team Status: Inactive Member Role Status Dates Lala MARTE, VENDING MACHINE REPAIRER-C Primary Care Provider Activ e Start: November 02, 2024 End: November 02, 2024 Lala MARTE, VENDING MACHINE REPAIRER-C Referring Provider Active Start: November 02, 2024 End: November 02, 2024 Feliciano Echavarria PA, PA Attending Provider Active Start: November 02, 2024 End: November 02, 2024 Team Status: Inactive Member Role Status Dates Lala DENTONC, VENDING MACHINE REPAIRER-C Primary Care Provider Activ e Start: December 29, 2024 End: December 29, 2024 Lala DENTONC, VENDING MACHINE REPAIRER-C Referring Provider Active Start: December 29, 2024 End: December 29, 2024 Demario Drake VENDING MACHINE REPAIRER-C Attending Provider Active Star t: December 29, 2024 End: December 29, 2024 Team Status: Inactive Member Role Status Dates Lala DENTONC, VENDING MACHINE REPAIRER-C Primary Care Provider Activ e Start: January 24, 2025 End: January 24, 2025 Lala DENTONC, VENDING MACHINE REPAIRER-C Referring Provider Active Start: January 24, 2025 End: January 24, 2025 Dr. Cora Saeed DC Attending Provider Active S tart: January 24, 2025 End: January 24, 2025 Team Status: Inactive Member Role Status Dates Dr. Francisco Stock MD Referring Provider Active Start: January 27, 2025 End: January 27, 2025 Lala DENTONC, VENDING MACHINE REPAIRER-C Primary Care Provider Activ e Start: January 27, 2025 End: January 27, 2025 Nayely Gregg CNM Attending Provider Active S tart: January 27, 2025 End: January 27, 2025 Team Status: Inactive Member Role Status Dates Lala MARTE, VENDING MACHINE REPAIRER-C Primary Care Provider Activ e Start: January 27, 2025 End: January 27, 2025 Nayely Gregg CNM Attending Provider Active S tart: January 27, 2025 End: January 27, 2025 Nayely Gregg CNM Referring Provider Active S tart: January 27, 2025 End: January 27, 2025 Fundraising Manager Relationship Specialty Start Date End Date Praneeth Quevedo [address] [place] [address] Referring Orthopedics 08/24/19 Fundraising Manager Relationship Specialty Start Date End Date Praneeth Quevedo [address] [place] [address] Referring Orthopedics 08/24/19 Fundraising Manager Relationship Specialty Start Date End Date Praneeth Quevedo [address] [place] [address] Referring Orthopedics 08/24/19 Team Status: Inactive Member Role Status Dates Lala Tate MARTE, VENDING MACHINE REPAIRER-C Primary Care Provider Activ e Start: April 05, 2025 End: April 05, 2025 Lala MARTE, VENDING MACHINE REPAIRER-C Attending Provider Active Start: April 05, 2025 End: April 05, 2025 Team Status: Inactive Member Role Status Dates Lala Tate MARTE, VENDING MACHINE REPAIRER-C Primary Care Provider Activ e Start: April 13, 2025 End: April 13, 2025 Lala DENTONC, VENDING MACHINE REPAIRER-C Referring Provider Active Start: April 13, 2025 End: April 13, 2025 Dr. Cora Saeed DC Attending Provider Active S tart: April 13, 2025 End: April 13, 2025 Team Status: Active Member Role/Relationship Status Dates Lala Tate DENTONC, VENDING MACHINE REPAIRER-C Primary Care Provider Activ e Team Status: Inactive Member Role/Relationship Status Dates Lala Tate BERTINC, VENDING MACHINE REPAIRER-C Primary Care Provider Activ e Start: January 24, 2025 End: January 24, 2025 Lala MARTE, VENDING MACHINE REPAIRER-C Referring Provider Active Start: January 24, 2025 End: January 24, 2025 Dr. Cora Saeed DC Attending Provider Active S tart: January 24, 2025 End: January 24, 2025 Team Status: Inactive Member Role/Relationship Status Dates Dr. Francisco Stock MD Referring Provider Active Start: January 27, 2025 End: January 27, 2025 Lala DENTONC, VENDING MACHINE REPAIRER-C Primary Care Provider Activ e Start: January 27, 2025 End: January 27, 2025 Nayely Gregg CNM Attending Provider Active S tart: January 27, 2025 End: January 27, 2025 Team Status: Inactive Member Role/Relationship Status Dates Lalayina MARTE, VENDING MACHINE REPAIRER-C Primary Care Provider Activ e Start: January 27, 2025 End: January 27, 2025 Nayely Gregg CNM Attending Provider Active S tart: January 27, 2025 End: January 27, 2025 Nayely Gregg CNM Referring Provider Active S tart: January 27, 2025 End: January 27, 2025 Team Status: Inactive Member Role/Relationship Status Dates Lala DENTONC, VENDING MACHINE REPAIRER-C Primary Care Provider Activ e Start: April 05, 2025 End: April 05, 2025 Lalarene DENTONC, VENDING MACHINE REPAIRER-C Attending Provider Active Start: April 05, 2025 End: April 05, 2025 Team Status: Inactive Member Role/Relationship Status Dates Lala DENTONC, VENDING MACHINE REPAIRER-C Primary Care Provider Activ e Start: April 13, 2025 End: April 13, 2025 Lala Tate BERTINAme, VENDING MACHINE REPAIRER-C Referring Provider Active Start: April 13, 2025 End: April 13, 2025 Dr. Cora Saeed DC Attending Provider Active S tart: April 13, 2025 End: April 13, 2025 Team Status: Inactive Member Role/Relationship Status Dates Lala DENTONC, VENDING MACHINE REPAIRER-C Primary Care Provider Activ e Start: May 12, 2025 End: May 12, 2025 Lalarene DENTONAme, VENDING MACHINE REPAIRER-C Referring Provider Active Start: May 12, 2025 End: May 12, 2025 Jannette Wilcox PA, PA Attending Provider Active Start: May 12, 2025 End: May 12, 2025 Fundraising Manager Relationship Specialty Start Date End Date Praneeth Quevedo [address] [place] [address] Referring Orthopedics 08/24/19 Team Status: Inactive Member Role/Relationship Status Dates Lala DENTONC, VENDING MACHINE REPAIRER-C Primary Care Provider Activ e Start: April 05, 2025 End: April 05, 2025 Lalarene DENTONAme, VENDING MACHINE REPAIRER-C Attending Provider Active Start: April 05, 2025 End: April 05, 2025 Team Status: Inactive Member Role/Relationship Status Dates Lala Ybarra VSC, VENDING MACHINE REPAIRER-C Primary Care Provider Activ e Start: April 13, 2025 End: April 13, 2025 Lalayina Ybarra BERTINAme, VENDING MACHINE REPAIRER-C Referring Provider Active Start: April 13, 2025 End: April 13, 2025 Dr. Cora Saeed DC Attending Provider Active S tart: April 13, 2025 End: April 13, 2025 Team Status: Inactive Member Role/Relationship Status Dates Lala DENTONC, VENDING MACHINE REPAIRER-C Primary Care Provider Activ e Start: May 12, 2025 End: May 12, 2025 Lala DENTONC, VENDING MACHINE REPAIRER-C Referring Provider Active Start: May 12, 2025 End: May 12, 2025 MERT Booteh Attending Provider Active Start: May 12, 2025 End: May 12, 2025 Team Status: Inactive Member Role/Relationship Status Dates Lala DENTONC, VENDING MACHINE REPAIRER-C Primary Care Provider Activ e Start: May 30, 2025 End: May 30, 2025 MERT Boothe Attending Provider Active Start: May 30, 2025 End: May 30, 2025 MERT Boothe Referring Provider Active Start: May 30, 2025 End: May 30, 2025 Team Status: Active Member Role/Relationship Status Dates Lala DENTONC, VENDING MACHINE REPAIRER-C Primary Care Provider Activ e Start: May [...] or prosecute any alcohol or drug abuse patient.[facility] the event this information is protected by the Federal Confidentiality of Alcohol and Drug Abuse Patient Records regulations: The Federal rules restrict any use of the information to criminally investigate or prosecute any alcohol or drug abuse patient.[facility] the event this information is protected by the Federal Confidentiality of Alcohol and Drug Abuse Patient Records regulations: The Federal rules restrict any use of the information to criminally investigate or prosecute any alcohol or drug abuse patient.[facility] the event this information is protected by the Federal Confidentiality of Alcohol and Drug Abuse Patient Records regulations: The Federal rules restrict any use of the information to criminally investigate or prosecute any alcohol or drug abuse patient.[facility] Reason for Visit (unrecogniz ed section and content) Reason Comments Consult Reason Comments Colposcopy Specialty Diagnoses / Procedures Referred By Mason t Referred To Contact [facility] Diagnoses Pap smear of cervix with ASCUS, cannot exclude HGSIL Procedures COLPOSCOPY COLPOSCOPY CERVIX BX CERVIX & ENDOCRV Scottie Hartley MD [address] [place] [address] Phone: tel: fax: [facility] [address] [place] [address] Referral ID Status Reason Start Date Expiration Date V isits Requested Visits Authorized [id number] Closed Auto-Generate d Referral 03/08/2025 03/08/2026 1 1 INFORMATION SOURCE (unrecogn ized section and content) DATE CREATED AUTHOR 08/31/2025 [facility] DATE CREATED AUTHOR AUTHOR'S ORGANIZ ATION 09/01/2025 [facility] FOR RECORDS PERTAINING TO PATIENTS WHO [...] BE BASED ON THE PRIMARY CLINICAL RECORDS. [employer] provides no warranty or guarantee of the accuracy or completeness of information in this document.
== END | disposition home or self-care (01) ==
PROVIDERS: Referring Provider Nurse Practitioner Family; Visit Provider Nurse Practitioner Family
DX: Z36.89 Encounter for other specified antenatal screening (principal); Z3A.01 Less than 8 weeks gestation of pregnancy